=== PATIENT | female | born 1945 | race Caucasian/White ===

== ENCOUNTER 2025-06-02 10:59 | Emergency (ER) | payer MEDICARE, SELFPAY ==
--- OUTSIDE RECORDS SUMMARY | 2024-10-19 04:30 | XMS_ITS ---
Author Organization [facility] Address [address] [place] [address] Care Team Providers Care Electrical Test Technician Name Role Phone Mahin Malloy Primary Care Provider Clive Maguire Unavailable [phone] REASON FOR VISIT Lumbar Facet RFA Social History Sex Assigned At : Social History Observation Description Sex Assigned At Female Encounters Encounter Location Date Provider Diagnosis [facility] [address], [address] [address] 10/19/2024 Clive Pollard Plan Of Treatment No Information Progress Notes * VIKTORIA MCPHERSONOB:[birth year] (80 yo F)Acc No.[id number]:10/19/2024 Patient: TA WORTHINGTON Provider: David Pollard MD :1945 A ge:79 Y S ex:Female Date:10/19/2024 Address:[address], [address], [id number] Pcp:Mahin Malloy Subjective: * Chief Complaints: * 1 . Lumbar Facet RFA. * Medical History: * Implants: Objective: * Vitals: Assessment: Plan: * Treatment: * * Electronic signature of Debra Pollard MD on 06/02/2025 at 01:44 PM EST Sign off status: Pending * Provider: David Pollard MD Date: 0 10/19/2024 Generated for Printi ng/Faxing/eTransmitting on: 1 08/03/2024 01:44 PM EST
--- OUTSIDE RECORDS SUMMARY | 2024-11-08 03:30 | XMS_ITS ---
Author Organization [facility] include [facility] beds at the [facility] s Address [address] [place] [address] Care Team Providers Care Technical Trainer Name Role Phone Mahin Malloy M.D. Primary Care Provider Holger Gaona Unavailable [phone] Allergies Allergen (clinical drug ingredient) Drug/Non Drug Allergy documented on EMR Reaction Allergy Type Onset Date Status Sterapred stomach upset Drug Allergy Act mishel doxycycline doxycycline stomach upset Drug Allergy Active prednisone prednisone stomach upset Drug Allergy A ctive REASON FOR VISIT F/U, Non-alcoholic fatty liver disease Medications Medication SIG (Take, Route, Frequency, Duration) Notes Start Date End Date Status Calcium 600+D 600 mg-5 mcg tablet 1 tab(s) orally 3 times a day; Duration: 30 day(s) Active erythromycin ophthalmic 0.5% ointment 1 tj in each affected eye 3 times a day; Duration: 10 days Active magnesium oxide 400 mg capsule 1 cap(s) orally once a day Active [place] 3 vitamins 1000 mg Active rosuvastatin 10 mg tablet 1 tab(s) orally once a day; Duration: 30 day(s) Active ezetimibe 10 mg tablet 1 tab(s) orally o nce a day Active Aspirin Low Dose 81 mg tablet, chewable 1 tab(s) chewed once a day Active clotrimazole topical 1% cream 1 tj applied topically As needed Active losartan 100 mg tablet 1 tab(s) orally o nce a day Active ketoconazole topical 2% cream 1 tj applied topically As needed Active hyoscyamine 0.125 mg tablet 1 tab sublingually PRN Active gabapentin 300 mg capsule 1 cap(s) orally once a day at night takes 2 at night Active spironolactone 25 mg tablet 1 tab(s) orally 2 times a day Active hydrocodone-acetaminoph en 5-325 mg 1-2 tablets 4-6 hours Active ketoconazole topical 2% shampoo 1 tj applied topically As needed Active chlorthalidone 25mg 1 tab qd; Duration: 30 days 1MG Active febuxostat 40 mg tablet 1 tab(s) orally 3 times a week Active Restasis bid Active Albuterol (Eqv-ProAir HFA) 90 mcg/inh aerosol 2 puff(s) inhaled PRN Active Breo Ellipta 200 mcg-25 mcg/inh powder 1 puff(s) inhaled once a day; Duration: 30 day(s) Active Social History Tobacco Use: Social History Observation Description Date Details (start date - stop date) Never Smoker NA - NA Social History Social History Social Info Question Answer Notes smoking Tobacco use: never smoker Patient uses other tobacco products: No e-Cigarettes No Additional Details Category Social Info Options Details Social History alcohol yes social, one d rink Drugs (Illicit) no Tattoos no blood transfusions no The patient h as never received a blood transfusion Occupation Retired from [employer] tobacco no IV Drug use no Marital Status Problems Problem Type SNOMED Code ICD Code Onset Dates Problem Status W/U Status Risk Notes Problem Cirrhotic (875732647) Cirrhosis (K74.60) Active confirmed Presumed based on prior imaging, compensated, Due to MASLD, Continue with HCC screening Vital Signs Blood pressure systolic 120 mm Hg 11/09/19 25 Blood pressure diastolic 72 mm Hg 025 Heart Rate 68 /min 11/08/2024 Height 5'3 in 11/08/2024 Weight 177 lbs 11/08/2024 BMI 31.35 kg/m2 11/08/2024 Encounters Encounter Location Date Provider Diagnosis [facility] [address] [place] [address] 11/08/2024 Holger Brown Nonalcoholic fatty liver disease K76.0 ; Personal history of adenomatous and serrated colon polyps Z86.0101 and Cirrhosis K74.60 Assessments Encounter Date Diagnosis (ICD Code) Assessment Notes Treatment Notes Treatment Clinical Notes Section Notes 11/08/2024 Nonalcoholic fatty liver disease (ICD-10 - K76.0) Chronic AST/ALT elevations with negative serologies other than positive AB which is nonspecific in the setting of negative ASMA/IgG. Has had US showing cirrhosis despite discordant fibrosis level on elastography Her labs and platelets do not suggest portal hypertension. We have discussed liver biopsy to more accurately determine the presence /absence of cirrhosis, but I think it is reasonable to simply monitor with q6 month US/AFPand she is in agreement with this plan.Contnue with effors for weight loss Please provide handout on fatty liver 11/08/2024 Personal history of adenomatous and serrated colon polyps (ICD-10 - Z86.0101) History of hyperplastic polyps including large proximal hyperplastic polyps. Last colonoscopy with adenomatous polyps removed. Next colonoscopy due in 2026 depending on overall health. 11/08/2024 Cirrhosis (ICD-10 - K74.60) We discused NAFLD/ARAUZ and now MASLD/MASH, likely some genetic contribution to this. I recommended her daughter let her doctor(s) know Plan Of Treatment Treatment Notes Assessment Notes Nonalcoholic fatty liver disease Please provide handout on fatty liver Pending Test Test Name Order Date RUQ US 11/08/2024 Next Appt Details Follow Up: 6 Months, Reason: Provider Name:Holger diop, 11/21/2025 11:30:00 AM, [address], [address], [place], [address], History and Physical Notes * Examination Category Sub-Category Detail Notes Category Not es General examination HEENT: Head normocephalic, s clera anicteric General appearance: Well-developed, well -nourished, in no acute distress Neurologic: Awake and alert, no abnormal movements Skin: Skin is normal; no j aundice Progress Notes * Susie FRANCIS MDOB:1945 (80 yo F)Acc No.[id number]:11/08/2024 Progress Note Patient: Mayela philipabelSusie Provider: Toy Brown MD :1945 A ge:79 Y S ex:Female Date:11/08/2024 Address:[address] [place] [address] [address] , [address] [place], [place] [id number] Pcp:Mahin Malloy M.D. Structured Data:Referred By : Physician Subjective: * Chief Complaints: * F /UNon-alcoholic fatty liver disease * HPI: G astroenterology: The patient is a 79-year-old female with history of TIA on chronic aspirin/Plavix who is here for follow-up of fatty liver and colon polyps --Background-- -Seen initially May 2017 for surveillance colonoscopy. -Prior colonoscopies in 2002 and 2006 with hyperplastic polyps removed including two 1 cm proximal hyperplastic polyps in 2002. -Prior colonoscopy 2011: hyperplastic polyps. -Colonoscopy Jul 2017: Small internal hemorrhoids, few sigmoid diverticula, four small polyps removed (TA x 2, HP x 2). -Seen for elevated liver enzymes early in 2018, resolved after stopping Lipitor. S he had colonoscopy with hemorrhoids and diverticulosis and three small polyps removed (TA x 2, SSP x 1) with recommendation for repeat in 3 years. --11/19/2023-- Ms Francis is here for follow-up. She had RUQ US showing F2-3 fibrosis but a nodular liver surface suggestive of cirrhosis. She had colonoscopy with hemorrhoids and diverticulosis and three small polyps removed (TA x 2, SSP x 1) with recommendation for repeat in 3 years. She feels well with no major GI complaints. She has been able to lose 45-50 lbs with diet changes and exercise. Going to PT for her hips and back and having treatment for spinal stenosis.Lab work September2023 shows normal CBC/CMP with normal platelets --05/10/2024-- Here for follow-up. AFP was normal November2023 with no mass on US November2023 She is doing well with no significant GI complaints. Continues to work with lymphedema and joint pains to try to increase her mobility. --11/08/2024-- Ms Francis is here for follow-up. Labwork was normal including plt 285k and normal AFP. RUQ US showed cirrhosis with no mass. She reports more difficulty with speech earlier this year, prompted neurology evaluation and MRI suggesting a prior stroke. She is making improvements in her speech some. Walking without a cane today. She had cardiac catheterization showing 40% stenosis by her report, did not need a stent. [facility] with [facility] at [facility]. Had questions about her fatty liver, cirrhosis, genetic component of fetty liver as her daughter has had recent liver issues. * Medical History: Transient ischemic attack (2017) Hypertension Hyperlipidemia Colon polyp Hearing loss Gastroesophageal reflux disease Hypercholesterolemia Lymphedema Neuropathy Back pain Asthma Medical History Verified * Surgical History: Cholecystectomy (Lap) Hemorrhoidectomy Arthroscopic knee surgery - right 2008 Breast biopsy - bilateral Colonoscopy in 2006 - adenomas breast cyst drainage 2017 Cyst Removal Heart Catheterization 09/2024 Surgical History verified. * Hospitalization/Major Diagno stic Procedure: Denies Past Hospitalization. Hospitalization Verified. * Family History: F ather: unknown, family history unknown . M other: unknown, family history unknown . B rother(s): family history unknown . S ister(s): family history unknown . F amily History Verified.. Unknown, patient is adopted. * Social History: M arital Status: . O ccupation: Retired from [employer]. S moking Tobacco use: n ever smoker Patient uses other tobacco products: N o e-Cigarettes N o A lcohol: yes, social, one drink. T obacco: no. I V Drug use: no. D rugs (Illicit): no. T attoos: no. B lood transfusions: no, The patient has never received a blood transfusion. S ocial History Verified. * Medications: T akingketoconazole topical 2% shampoo 1 tj applied topically As neededketoconazole topical 2% cream 1 tj applied topically As neededlosartan 100 mg tablet 1 tab(s) orally once a day clotrimazole topical 1% cream 1 tj applied topically As neededAspirin Low Dose 81 mg tablet, chewable 1 tab(s) chewed once a day ezetimibe 10 mg tablet 1 tab(s) orally once a day rosuvastatin 10 mg tablet 1 tab(s) orally once a day [place] 3 vitamins 1000 mg magnesium oxide 400 mg capsule 1 cap(s) orally once a day erythromycin ophthalmic 0.5% ointment 1 tj in each affected eye 3 times a day Calcium 600+D 600 mg-5 mcg tablet 1 tab(s) orally 3 times a day Breo Ellipta 200 mcg-25 mcg/inh powder 1 puff(s) inhaled once a day Albuterol (Eqv-ProAir HFA) 90 mcg/inh aerosol 2 puff(s) inhaled PRN Restasis bid febuxostat 40 mg tablet 1 tab(s) orally 3 times a week chlorthalidone 25mg 1 tab qd hydrocodone-acetaminophen 5- 325 mg 1-2 tablets 4-6 hours spironolactone 25 mg tablet 1 tab(s) orally 2 times a day gabapentin 300 mg capsule 1 cap(s) orally once a day at night hyoscyamine 0.125 mg tablet 1 tab sublingually PRN Medication List reviewed and reconciled with the patientTaking ketoconazole topical 2% shampoo 1 tj applied topically As neededTaking ketoconazole topical 2% cream 1 tj applied topically As neededTaking losartan 100 mg tablet 1 tab(s) orally once a day Taking clotrimazole topical 1% cream 1 tj applied topically As neededTaking Aspirin Low Dose 81 mg tablet, chewable 1 tab(s) chewed once a day Taking ezetimibe 10 mg tablet 1 tab(s) orally once a day Taking rosuvastatin 10 mg tablet 1 tab(s) orally once a day Taking [place] 3 vitamins 1000 mg Taking magnesium oxide 400 mg capsule 1 cap(s) orally once a day Taking erythromycin ophthalmic 0.5% ointment 1 tj in each affected eye 3 times a day Taking Calcium 600+D 600 mg-5 mcg tablet 1 tab(s) orally 3 times a day Taking Breo Ellipta 200 mcg-25 mcg/inh powder 1 puff(s) inhaled once a day Taking Albuterol (Eqv-ProAir HFA) 90 mcg/inh aerosol 2 puff(s) inhaled PRN Taking Restasis bid Taking febuxostat 40 mg tablet 1 tab(s) orally 3 times a week Taking chlorthalidone 25mg 1 tab qd Taking hydrocodone-acetaminophen 5-325 mg 1-2 tablets 4-6 hours Taking spironolactone 25 mg tablet 1 tab(s) orally 2 times a day Taking gabapentin 300 mg capsule 1 cap(s) orally once a day at night Taking hyoscyamine 0.125 mg tablet 1 tab sublingually PRN Medication List reviewed and reconciled with the patient * Allergies: d oxycycline: stomach upset - Side EffectsSterapred: stomach upset - Side Effectsprednisone: stomach upset - Side EffectsyesAllergies Verified. Objective: * Vitals: B CT:31.35Index, HR: 68 /min, BP:120/72mm Hg, Wt: 177 lbs, Ht: 5'3. * Examination: G eneral examination: General appearance: W ell-developed, well-nourished, in no acute distress. HEENT: Head normocephalic, sclera anicteric. Neurologic: A wake and alert, no abnormal movements. Skin: S kin is normal; no jaundice. Assessment: * Assessment: 1. N onalcoholic fatty liver disease - K76.0 (Primary) N otes :Chronic AST/ALT elevations with negative serologies other than positive AB which is nonspecific in the setting of negative ASMA/IgG. Has had US showing cirrhosis despite discordant fibrosis level on elastography Her labs and platelets do not suggest portal hypertension. W e have discussed liver biopsy to more accurately determine the presence /absence of cirrhosis, but I think it is reasonable to simply monitor with q6 month US/AFPand she is in agreement with this plan.Contnue with effors for w eight loss 2. P ersonal history of adenomatous and serrated colon polyps - Z86.0101 N otes :History of hyperplastic polyps including large proximal hyperplastic polyps. Last colonoscopy with adenomatous polyps removed. Next colonoscopy due in 2026 depending on overall health. 3 . C irrhosis - K74.60 N otes :We discused NAFLD/ARAUZ and now MASLD/MASH, likely some genetic contribution to this. I recommended her daughter let her doctor(s) know Plan: * Treatment: 2. C irrhosis L AB: -AFP, Serum, Tumor Marker (Ordered for 11/08/2024) (Collection Date & Time - 11/08/2024 10:35 AM) Value Reference Range A FP, Serum, Tumor Marker 3.0 0.0-9.2 - ng/mL ?LAB: -Comp. Metabolic Panel (14) (Ordered for 11/08/2024) (Collection Date & Time - 11/08/2024 10:35 AM)* Value Reference Range B UN 25 8-27 - mg/dL * C reatinine, Serum 0.94 0.57-1.00 - mg/dL * B UN/Creatinine Ratio 27 12-28 - * S odium, Serum 142 134-144 - mmol/L * P otassium, Serum 4.6 3.5-5.2 - mmol/L * C hloride, Serum 103 96-106 - mmol/L * C arbon Dioxide, Total 23 20-29 - mmol/L * C alcium, Serum 9.4 8.7-10.3 - mg/dL * P rotein, Total, Serum 6.2 6.0-8.5 - g/dL * A lbumin, Serum 4.2 3.8-4.8 - g/dL * G lobulin, Total 2.0 1.5-4.5 - g/dL * B ilirubin, Total 0.5 0.0-1.2 - mg/dL * A lkaline Phosphatase, Serum 93 44-121 - IU/L * A ST (SGOT) 20 0-40 - IU/L * A LT (SGPT) 20 0-32 - IU/L * G lucose, Serum 79 70-99 - mg/dL * e GFR 62 >59 - mL/min/1.73 ?Imaging: [facility]* [facility] * Preventive Medicine: Counseling: D iet/Adult weight Above Normal BMI Follow-up L eber education regarding diet BMI management provided: Gaston Hernandez P Management: REFERRAL TO ALTERNATIVE / PRIMARY CARE PROVIDER: Rhett centeno to general physician Quang dvance Care Planning Date of last Advance Care Planning:?11/08/2024 * Follow Up: 6 Months Billing Information: * Procedure Codes: * Electronic signature of Chencho Brown MD on 06/02/2025 at 01:43 PM EST Sign off status: Pending * Provider: Toy Brown MD Date: 0 11/08/2024 Generated for Patrick eastman/Crispin/eTarlensmitting on: 1 08/03/2024 01:43 PM EST
--- OUTSIDE RECORDS SUMMARY | 2025-05-17 04:15 | XMS_ITS ---
Author Organization [facility] Address [address] [place] [address] Care Team Providers Care Cable Installation Manager Name Role Phone Mahin Malloy M.D. Primary Care Provider Holger Gaona Unavailable [phone] Allergies Allergen (clinical drug ingredient) Drug/Non Drug Allergy documented on EMR Reaction Allergy Type Onset Date Status Sterapred stomach upset Drug Allergy Act mishel doxycycline doxycycline stomach upset Drug Allergy Active prednisone prednisone stomach upset Drug Allergy A ctive REASON FOR VISIT F/U, Fatty liver, Colon polyp Medications Medication SIG (Take, Route, Frequency, Duration) Notes Start Date End Date Status erythromycin ophthalmic 0.5% ointment 1 tj in each affected eye 3 times a day; Duration: 10 days Active Breo Ellipta 200 mcg-25 mcg/inh powder 1 puff(s) inhaled once a day; Duration: 30 day(s) Active Albuterol (Eqv-ProAir HFA) 90 mcg/inh aerosol 2 puff(s) inhaled PRN Active Calcium 600+D 600 mg-5 mcg tablet 1 tab(s) orally 3 times a day; Duration: 30 day(s) Active Restasis bid Active magnesium oxide 400 mg capsule 1 cap(s) orally once a day Active rosuvastatin 10 mg tablet 1 tab(s) orally once a day; Duration: 30 day(s) Active Livingston 3 vitamins 1000 mg Active Aspirin Low Dose 81 mg tablet, chewable 1 tab(s) chewed once a day Active ezetimibe 10 mg tablet 1 tab(s) orally o nce a day Active ketoconazole topical 2% shampoo 1 tj applied topically As needed Active ketoconazole topical 2% cream 1 tj applied topically As needed Active febuxostat 40 mg tablet ; Duration: 16 Days Active losartan 100 mg tablet 1 tab(s) orally o nce a day Active clotrimazole topical 1% cream 1 tj applied topically As needed Active hyoscyamine 0.125 mg tablet 1 tab sublingually PRN Active spironolactone 25 mg tablet 1 tab(s) orally 2 times a day Active gabapentin 300 mg capsule 1 cap(s) orally once a day at night takes 2 at night Active chlorthalidone 25mg 1 tab qd; Duration: 30 days 1MG Active hydrocodone-acetaminoph en 5-325 mg 1-2 tablets 4-6 hours Active febuxostat 40 mg tablet 1 tab(s) orally 3 times a week Active Social History Tobacco Use: Social History [...] received a blood transfusion Occupation Retired from [employer] tobacco no IV Drug use no Marital Status Vital Signs Blood pressure systolic 126 mm Hg 05/17/20 25 Blood pressure diastolic 80 mm Hg 025 Heart Rate 83 /min 05/17/2025 Height 5'3 in 05/17/2025 Weight 183 lbs 05/17/2025 Oximetry 97 % 05/17/2025 BMI 32.41 kg/m2 05/17/2025 Encounters Encounter Location Date Provider Diagnosis [facility] [address] [place] [address] 05/17/2025 Holger Brown Nonalcoholic fatty liver disease K76.0 ; Personal history of adenomatous and serrated colon polyps Z86.0101 and Cirrhosis K74.60 Assessments Encounter Date Diagnosis (ICD Code) Assessment Notes Treatment Notes Treatment Clinical Notes Section Notes 05/17/2025 Nonalcoholic fatty liver disease (ICD-10 - K76.0) [...] US/AFPand she is in agreement with this plan.Continue with efforts for weight loss 05/17/2025 Personal history of adenomatous and serrated colon polyps (ICD-10 - Z86.0101) History of hyperplastic polyps including large proximal hyperplastic polyps. Last colonoscopy with adenomatous polyps removed. Next colonoscopy due in 2026 depending on overall health. 05/17/2025 Cirrhosis (ICD-10 - K74.60) Presumed based on prior imaging, compensated, Due to MASLD, Continue with HCC screening Plan Of Treatment Pending Test Test Name Order Date RUQ US 05/17/2025 Next Appt Details Follow Up: 6 Months, Reason: Provider Name:Holger diop, 11/21/2025 11:30:00 AM, [address], [address], [place], [address], History and Physical Notes * Examination Category Sub-Category Detail Notes Category Not es General examination HEENT: Head normocephalic, s clera anicteric General appearance: Well-developed, well -nourished, in no acute distress Neurologic: Awake and alert, no abnormal movements Skin: Skin is normal; no j aundice Progress Notes * Susie FRANCIS MDOB:1945 (80 yo F)Acc No.[id number]:05/17/2025 Progress Note Patient: Mayela Susie watson Provider: Toy Brown MD :1945 A ge:80 Y S ex:Female Date:05/17/2025 Address:[address] [place] [address] , [facility] [address], [place], [place] Pcp:Mahin Malloy M.D. Structured Data:Referred By : Physician Subjective: * Chief Complaints: * F /UFatty liverColon polyp * HPI: G astroenterology: The patient is a 80-year-old female with history of TIA on chronic [...] with diet changes and exercise. Going to for her hips and back and having [...] a stent. Working with weight loss at [facility]. Had questions about her fatty liver, cirrhosis, genetic component of fetty liver as her daughter has had recent liver issues. --05/17/2025-- Here for follow-up. After her last visit, RUQ US showed cirrhosis with no mass. liver enzymes and AFP were normal. She feels well. Pending an extended vacation to [place] with family. NO bowel concerns, abd pain, nausea/vomiting. Dealin with some fungus on the toenails and feet, seeing podiatry and on topical therapies. * Medical History: Transient ischemic attack (2017) Hypertension Hyperlipidemia Colon polyp Hearing loss Gastroesophageal reflux disease Hypercholesterolemia Lymphedema Neuropathy Back pain Asthma Medical History Verified * Surgical History: Cholecystectomy (Lap) Hemorrhoidectomy Arthroscopic knee surgery - right 2008 Breast biopsy - bilateral Colonoscopy in 2006 - adenomas breast cyst drainage 2017 Cyst Removal Heart Catheterization 09/2024 Surgical History verified. * Hospitalization/Major Diagno stic Procedure: urgent care , right leg injury 02/2025 Hospitalization Verified. * Family History: F ather: unknown, family history unknown . M other: unknown, family history unknown . B rother(s): family history unknown . S ister(s): family history unknown . F amily History Verified.. Unknown, patient is adopted. * Social History: M arital Status: . O ccupation: Retired from [employer]. S moking Tobacco use: n ever smoker [...] tablet 1 tab(s) orally once a day Livingston 3 vitamins 1000 mg magnesium oxide 400 [...] 0.125 mg tablet 1 tab sublingually PRN febuxostat 40 mg tablet Medication List reviewed and reconciled with the [...] 1 tab(s) orally once a day Taking Livingston 3 vitamins 1000 mg Taking magnesium oxide [...] 0.125 mg tablet 1 tab sublingually PRN Taking febuxostat 40 mg tablet Medication List reviewed and reconciled with the patient * Allergies: d oxycycline: stomach upset - Side EffectsSterapred: stomach upset - Side Effectsprednisone: stomach upset - Side EffectsyesAllergies Verified. Objective: * Vitals: B WV:32.41Index, HR: 83 /min, BP:126/80mm Hg, Wt: 183 lbs, Ht: 5'3, SaO2: 97 %. * Examination: G eneral examination: General appearance: [...] US/AFPand she is in agreement with this plan.Continue with efforts for w eight loss 2. P ersonal history of adenomatous and serrated colon polyps - Z86.0101 N otes :History of hyperplastic polyps including large proximal hyperplastic polyps. Last colonoscopy with adenomatous polyps removed. Next colonoscopy due in 2026 depending on overall health. 3 . C irrhosis - K74.60 N otes :Presumed based on prior imaging, compensated, Due to MASLD, Continue with HCC screening Plan: * Treatment: Value Reference Range A FP, Serum, Tumor Marker 2.5 0.0-9.2 - ng/mL ?LAB: -Hepatic Function Panel (7) (Ordered for 05/17/2025) (Collection Date & Time - 05/17/2025 10:27 AM)* Value Reference Range A lbumin, Serum 4.1 3.8-4.8 - g/dL * B ilirubin, Total 0.6 0.0-1.2 - mg/dL * B ilirubin, Direct 0.22 0.00-0.40 - mg/dL * A lkaline Phosphatase, Serum 73 49-135 - IU/L * A ST (SGOT) 26 0-40 - IU/L * A LT (SGPT) 33 H 0-32 - IU/L * P rotein, Total, Serum 6.1 6.0-8.5 - g/dL ?Imaging: RUQ US* Eval for HCC screeningTez Dan 05/17/2025 03:16:51 PM EST >order and notes faxed to [facility] Tez Dan 05/17/2025 03:17:59 PM > please call pt to schedule [phone] TY * Preventive Medicine: Counseling: D iet/Adult weight Above Normal BMI Follow-up L ashleyyle education regarding diet BMI management provided: Gaston Del Rio dvance Care Planning Date of last Advance Care Planning:?05/17/2025 * Follow Up: 6 Months Billing Information: * Procedure Codes: * Electronic signature of Chencho Brown MD on 06/02/2025 at 01:43 PM EST Sign off status: Pending * Provider: Toy Brown MD Date: 1 07/18/2024 Generated for Patrick eastman/Crispin/Maryann on: 08/03/2024 01:43 PM EST
--- NOTE | ~2025-06-02 | XR_ITS ---
XR hip RT 2V w AP pelvis 06/02/2025 13:27 INDICATION: Right hip pain PROCEDURE: AP pelvis and 2 views right hip COMPARISON: No prior studies for comparison. FINDINGS: Fracture, dislocation or subluxation is not identified. The soft tissues appear within normal limits. No foreign bodies are identified. There is lower lumbar spondylosis. Mild osteoarthritis of the hips. IMPRESSION: 1: NO ACUTE BONE OR JOINT ABNORMALITY IDENTIFIED. Reviewed, dictated and finalized at location O. EDURE ANALYST
--- NOTE | ~2025-06-02 | XR_ITS ---
XR tibia fibula RT 2V 06/02/2025 13:27 INDICATION: Right leg pain PROCEDURE: 2 views right tibia/fibula COMPARISON: No prior studies for comparison. FINDINGS: Fracture, dislocation or subluxation is not identified. The soft tissues appear within normal limits. No foreign bodies are identified. IMPRESSION: 1: NO ACUTE BONE OR JOINT ABNORMALITY IDENTIFIED. Reviewed, dictated and finalized at location O. CE MACHINE SERVICER APPRENTICE
--- NOTE | ~2025-06-02 | XR_ITS ---
XR foot RT min 3V 06/02/2025 13:27 Indication: Right foot pain and swelling Procedure: 4 views right foot Comparison: No prior studies for comparison. Findings: Moderate diffuse soft tissue swelling. Osteopenia. Moderate osteoarthritis of the first MTP joint. Small degenerative calcaneal enthesophyte. No foreign bodies. No fracture or traumatic malalignment. Impression: 1: Moderate diffuse soft tissue swelling. Reviewed, dictated and finalized at location O. R [employer]UBE [employer]TER Impression: 1: Moderate diffuse soft tissue swelling.
[2025-06-02 11:23] VITALS: BP 117/54; PULSE 70; RESP 16; TEMP 36.1; O2SAT 98
--- NOTE | 2025-06-02 12:29 | ED.FALL ---
HPI - Fall General Chief Complaint: Fall Stated Complaint: fall, skin tear right leg Time Seen by Provider: 06/02/25 11:57 Source: patient and family Mode of arrival: wheelchair Limitations: no limitations History of Present Illness HPI Narrative: This is an 80-year-old female who presents to the ED for a fall. Patient states that she was walking to her daughter's house who and missed a step walking into the house causing her to fall onto her right side. Denies hitting her head, loss consciousness. States she injured her right lower leg, right foot, and right hip. She is not on any blood thinners. Related Data Allergies Allergy/AdvReac Type Severity Reaction Status Date / Time prednisone Allergy Rash Verified 06/02/25 12:34 Review of Systems Review of Systems: All systems reviewed & are unremarkable except as noted in HPI and below Exam Narrative: APPEARANCE: No acute distress, nontoxic, resting in bed HEENT: Normocephalic, atraumatic, OMM RESPIRATORY: No respiratory distress CARDIOVASCULAR: Appears well perfused ABDOMINAL: Nondistended MUSCULOSKELETAl: Tenderness and ecchymosis over the to distal dorsal aspect of the right foot, no crepitus. No obvious deformities. No tenderness over the posterior right calf, negative Miranda test. Tenderness over the right greater trochanter. NEURO: Awake and alert. SKIN:: Warm, dry. Large skin tear over the lateral aspect of the right lower leg, some oozing scattered. PSYCHIATRIC: Normal affect/mood, Course Vital Signs Vital signs: Vital Signs Temperature 97.0 F L 06/02/25 11:23 Pulse Rate 70 06/02/25 11:23 Respiratory Rate 16 06/02/25 11:23 Blood Pressure 117/54 L 06/02/25 11:23 Pulse Oximetry 98 06/02/25 11:23 Oxygen Delivery Room Air 06/02/25 11:23 Temperature 97.0 F L 06/02/25 11:23 Pulse Rate 70 06/02/25 11:23 Respiratory Rate 16 06/02/25 11:23 Blood Pressure 117/54 L 06/02/25 11:23 Pulse Oximetry 98 06/02/25 11:23 Oxygen Delivery Room Air 06/02/25 13:00 [facility] Narrative Medical decision making narrative: 80-year-old female Presenting for fall. On initial evaluation patient was in no acute distress afebrile, hemodynamic stable. Differentials include but are not limited to: Fracture, sprain, strain, contusion, abrasion, skin tear Notable exam findings: Large skin tear over the right lateral lower leg, some overlying using, laceration. Tenderness over the dorsal right foot, posterior right lower leg, and the right greater trochanter. X-ray right foot, x-ray right tibia/fibula, x-ray right hip showed no acute process. Patient did have tenderness over her calf but had a negative Miranda test no suspicion for Achilles tendon tear at this time. No fractures. Skin tears were dressed. Patient was updated with Tdap. Patient and family were educated on proper wound care and pain control. They are advised to follow-up with the patient's PCP in the next week for re-evaluation. Patient and family are agreeable to the plan. Given strict return precautions. Differential Diagnosis Differential Diagnosis: Fracture, sprain, strain, contusion, abrasion, skin tear Imaging Data Radiologist's impression: ITS Impressions Foot X-Ray 06/02/25 13:46 Impression: 1: Moderate diffuse soft tissue swelling. Hip/Pelvis X-Ray 06/02/25 13:48 IMPRESSION: 1: NO ACUTE BONE OR JOINT ABNORMALITY IDENTIFIED. Tibia/Fibula X-Ray 06/02/25 13:49 IMPRESSION: 1: NO ACUTE BONE OR JOINT ABNORMALITY IDENTIFIED. Discharge Plan Discharge Clinical Impression: Skin tear Fall Qualifiers: Encounter type: initial encounter Qualified Code(s): W19.XXXA - Unspecified fall, initial encounter Contusion Qualifiers: Encounter type: initial encounter Contusion area: lower leg Laterality: right Qualified Code(s): S80.11XA - Contusion of right lower leg, initial encounter Patient Disposition: Home Condition: Stable Instructions: Antibiotic Form, Contusion in Adults (ED), Skin Tear (ED) Additional Instructions: Keep the skin tear clean with soapy water, change dressing daily. Take Tylenol and ibuprofen for pain. Follow-up with her PCP in the next week for re-evaluation. Return to the ED for any new or worsening symptoms. Patient Language: Cameroonian Follow-up/Referrals: PHYSICIAN,SAFETY PATROL OFFICER [Primary Care Provider, Internal Medicine]
[2025-06-02] MEDS: ACETAMINOPHEN 500 MG TABLET 1000 MG PO (12:35)
[2025-06-02] MEDS: TETANUS,DIPHTHERIA,AC PERTUSSIS ADULT (0.5 ML) BOOSTRIX IM (12:35)
--- OUTSIDE RECORDS SUMMARY | 2025-06-02 12:43 | XMS_ITS | Encounter Summary ---
Author Organization [facility] Address [address], [address] [place] [address] Care Team Providers Care Granulator Machine Operator Name Role Phone Mahin Malloy MD Primary Care Provider + [phone] Reason for Referral * Imaging (Routine) - Closed Specialty Diagnoses / Procedures Referred By Contac t Referred To Contact Radiology Diagnoses Post-menopausal Procedures DEXA BONE DENSITY AXIAL SKELETON Betyte Garner APRN - NP [id number] [address] Phone: tel: fax: Referral ID Status Reason Start Date Expiration Date Visits Re quested Visits Authorized [id number] Closed 03/13/2023 03/12/2024 1 1 Encounter Details Date Type Department Care Team (Latest Contact Info) Description 03/13/2023 Transcribe Orders [facility] SCHEDULING [address] [place] [address] Bettye Garner APRN - NP [id number] [address] Post-menopausal (Primary Dx) Social History Tobacco Use Types Packs/Day Years Used Date Smoking Tobacco: Never Smokeless Tobacco: Never Alcohol Use Standard Drinks/Week Comments Yes 0 (1 standard drink = 0.6 oz pur e alcohol) Comments Unknown Sex and Gender Information Value Date Recorded Sex Assigned at Not on file Legal Sex Female 9:01 AM EST Gender Identity Not on file Sexual Orientation Not on file documented as of this encounter Plan of Treatment Upcoming Encounters Date Type Department Care Team (Late st Contact Info) Description 08/19/2025 8:30 [place] [address] [facility]; AAR--- DEXA // Z78.0 // FAX documented as of this encounter Results * DEXA BONE DENSITY AXIAL SKELETON (04/03/2023 10:27 AM EDT) Anatomical Region Laterality Modality Head, C-spine, T-spine, L-spine, Chest Bone Density 04/03/2023 11:3 1 AM EDT Impressions 04/03/2023 11:33 AM EDT IMPRESSION: Osteopenia in the left forearm. The complete data acquisition used to generate the above report is available on request to the Radiology department. Lowest density of either femoral neck, total hips, or spine is typically basis of initial diagnosis. Subsequent exams typically follow bone density of mean total proximal femurs to assess for change. A 1% change from prior exam is typically statistically significant. World Health Organization criteria for bone mineral density impression classify patients as normal with T score at or above -1.0, osteopenia with T score between -1.0 and -2.5, or osteoporosis with T score at or below -2.5 referencing the lowest value obtained for the above anatomic sites. Electronically signed by: Dixie Elizalde MD 04/03/2023 11:33 AM EDT Workstation ID: [id number] Narrative 04/03/2023 11:33 AM EDT DEXA BONE DENSITY AXIAL SKELETON, DEXA BONE DENSITY PERIPHERAL Indication: Post-menopausal. Comparison: None. Technique: Dual Energy X-ray Absorptiometry (DEXA) performed on the lumbar spine and proximal femurs with a [employer] unit. Lumbar Spine: Measurements from L1 revealed a bone mineral density of 1.21 grams/cm2. The T-score, comparing to young adult normals, is 0.6 and the Z-score, comparing to age-matched normals, is 2.4. No significant change from prior. Proximal Femurs: Bone mineral density of the left femoral neck is 0.977 grams/cm2 with T score -0.4, Z-score is 1.6. Bone mineral density of the right femoral neck is 0.906 grams/cm2 with T score -0.9, Z-score is 1.1. Bone mineral density of the mean total proximal femurs is 0.986 grams/cm2. T-score of the mean total proximal femurs is -0.2 and the Z-score is 1.7. Significant 6.1% decrease in bone mineral density when compared to prior. Bone mineral density of the left forearm is 0.764 grams/cm2. T-score of the forearm is -1.3 and the Z-score is -1.3. Procedure Note Dixie Elizalde MD - 04/03/2023 DEXA BONE DENSITY AXIAL SKELETON, DEXA BONE DENSITY PERIPHERAL Indication: Post-menopausal. Comparison: None. Technique: Dual Energy X-ray Absorptiometry (DEXA) performed on the lumbarspine and proximal femurs with a [employer] unit. Lumbar Spine: Measurements from L1 revealed a bone mineral density of1.21 grams/cm2. The T-score, comparing to young adult normals, is 0.6 andthe Z-score, comparing to age-matched normals, is 2.4. No significant changefrom prior. Proximal Femurs: Bone mineral density of the left femoral neck is 0.977 grams/cm2 with T score -0.4, Z-score is 1.6. Bone mineral density of the right femoral neck is 0.906 grams/cm2 with Tscore -0.9, Z-score is 1.1. Bone mineral density of the mean total proximal femurs is 0.986 grams/cm2. T-score of the mean total proximal femurs is -0.2 and the Z-score is1.7. Significant 6.1% decrease in bone mineral density when compared toprior. Bone mineral density of the left forearm is 0.764 grams/cm2. T-score ofthe forearm is -1.3 and the Z-score is -1.3. IMPRESSION: IMPRESSION: Osteopenia in the left forearm. The complete data acquisition used to generate the above report isavailable on request to the Radiology department. Lowest density of either femoralneck, total hips, or spine is typically basis of initial diagnosis. Subsequentexams typically follow bone density of mean total proximal femurs to assessfor change. A 1% change from prior exam is typically statisticallysignificant. World Health Organization criteria for bone mineral density impressionclassify patients as normal with T score at or above -1.0, osteopenia with Tscore between -1.0 and -2.5, or osteoporosis with T score at or below -2.5referencing the lowest value obtained for the above anatomic sites. Electronically signed by: Dixie Elizalde MD 04/03/2023 11:33 AM EDT Workstation ID: [id number] us Bettye Garner APRN - HOUSE PAINTING INSTRUCTOR IMG DEXA ORDERABLES Fin al Result documented in this encounter Visit Diagnoses Diagnosis Post-menopausal- Primary Asymptomatic postmenopausal status (age-related) (natural) Post-menopausal Asymptomatic postmenopausal status (age-related) (natural) documented in this encounter Care Teams Granulator Machine Operator Relationship Specialty Start Date End Date Mahin Malloy MD [address] [place] [address] PCP - General 04/14/12 documented as of this encounter
--- OUTSIDE RECORDS SUMMARY | 2025-06-02 12:43 | XMS_ITS | Clinical Summary ---
Author Organization [facility] Address [address], [address] [place] [address] Care Team Providers Care Lead Cargo Mover Name Role Phone Mahin Malloy MD Primary Care Provider + [phone] Allergies Active Allergy Reactions Criticality Noted Date Comments Doxycycline Nausea Only 05/25/2020 Prednisone Nausea Only 11/21/2016 Medications albuterol sulfate HFA (PROVENTIL;ANGELICA KARLEE;PROAIR) 108 (90 Base) MCG/ACT inhaler Inhale 1 puff into the lungs as needed Active aspirin 81 MG chewable tablet Take 81 mg by mouth daily Active chlorthalidone (HYGROTON) 25 MG tablet Take 25 mg by mouth daily Active vitamin D (CHOLECALCIFEROL ) 01212 UNIT CAPS Take 50,000 Units by mouth every 7 days Active clopidogrel (PLAVIX) 75 MG tablet 75 mg daily 10/30/2016 Active febuxostat (ULORIC) 40 MG TABS tablet Take 40 mg by mouth Active gabapentin (NEURONTIN) 100 MG capsule Take 100 mg by mouth. Active gabapentin (NEURONTIN) 300 MG capsule Take 300 mg by mouth 3 times daily. Active HYDROcodone-acet aminophen (NORCO) 5-325 MG per tablet Take 1 tablet by mouth every 6 hours as needed. Active Hyoscyamine Sulfate SL 0.[address] 0.125 mg under the tongue every 4 hours as needed Active losartan (COZAAR) 100 MG tablet nightly. 11/06/2016 Active propranolol (INDERAL LA) 60 MG extended release capsule 60 mg 2 times daily 10/30/2016 Active simvastatin (ZOCOR) 10 MG tablet Take 10 mg by mouth Active spironolactone (ALDACTONE) 25 MG tablet 25 mg daily 10/30/2016 Active Active Problems Problem Noted Date Diagnosed Date Abscess of right breast 11/21/2016 Encounters Date Type Department Care Team Description 06/01/2025 Transcribe Orders [facility] SCHEDULING [address] [place] [address] Mahin Malloy MD Asymptomatic menopausal state (Primary Dx) 05/20/2025 10:46 AM EST - 05/20/2025 11:59 PM EST Hospital Encounter [address] [address] Holger Brown MD Hepatic cirrhosis, unspecified hepatic cirrhosis type, unspecified whether ascites present (HCC) Discharge Disposition: Home or Self Care 05/19/2025 Travel 05/19/2025 Transcribe Orders [facility] SCHEDULING [address] [place] [address] Holger Brown MD Hepatic cirrhosis, unspecified hepatic cirrhosis type, unspecified whether ascites present (HCC) (Primary Dx) 05/11/2025 11:31 AM EST - 05/11/2025 11:59 PM EST Hospital Encounter [facility] [address] [place] [address] Discharge Disposition: Home or Self Care from Last 3 Months Family History Relation Name Status Comments Father Mother Social History Tobacco Use Types Packs/Day Years Used Date Smoking Tobacco: Never Smokeless Tobacco: Never Alcohol Use Standard Drinks/Week Comments Yes 0 (1 standard drink = 0.6 oz pur e alcohol) Comments Unknown Sex and Gender Information Value Date Recorded Sex Assigned at Not on file Legal Sex Female 9:01 AM EST Gender Identity Not on file Sexual Orientation Not on file Plan of Treatment Upcoming Encounters Date Type Department Care Team (Late st Contact Info) Description 08/19/2025 8:30 AM EDT Appointment [facility] [address] [place] [address] MCR; AARP--- DEXA // Z78.0 // FAX Health Maintenance Due Date Last Done Comments Depression Screen 1957 Hepatitis A vaccine (1 of 2 - Risk 2-dose series) 01/22/1964 Hepatitis B vaccine (1 of 3 - Risk 3-dose series) 2005 Annual Wellness Visit (Medicare) 05/05/2023 Lipids 03/13/2024 03/13/2023 DTaP/Tdap/Td vaccine (2 - Td or Tdap) 07/05/2029 07/05/2019 Shingles vaccine Completed 12/24/2018, 07/2018, 09/02/2012 Pneumococcal 50+ years Vaccine Completed 07/05/2019, 05/07/2016, 06/22/2014 DEXA (modify frequency per FRAX score) Completed 04/03/2023, 04/03/2023, 12/26/2021 Respiratory Syncytial Virus (RSV) or age 60 yrs+ Completed 10/03/2023 COVID-19 Vaccine Completed 09/28/2024, , 10/03/2023, Additional history exists Flu vaccine Completed 04/15/2025, 02/08, 03/03/2023, Additional history exists Hib vaccine Aged Out No longer eligi ble based on patient's age to complete this topic Meningococcal (ACWY) vaccine Aged Out No longer eligible based on patient's age to complete this topic Meningococcal B vaccine Aged Out No l onger eligible based on patient's age to complete this topic Polio vaccine Aged Out No longer elig ible based on patient's age to complete this topic Procedures Procedure Name Priority Date/Time Associated Diagnosis Comments US GALLBLADDER RUQ Routine 05/20/2025 11 :25 AM EST Hepatic cirrhosis, unspecified hepatic cirrhosis type, unspecified whether ascites present (HCC) DEXA BONE DENSITY AXIAL SKELETON Routine 04/03/2023 10:27 AM EDT Post-menopausal LIPID PANEL Routine 03/13/2023 12:45 PM EDT from Last 3 Months or Most Recently Relevant to Health Maintenance Results * US GALLBLADDER RUQ (05/20/2025 11:25 AM EST) Anatomical Region Laterality Modality Abdomen Ultrasound 05/20/2025 1:03 PM EST Impressions 05/20/2025 1:05 PM EST IMPRESSION: 1. Hepatic steatosis with cirrhotic nodular contour. 2. Status post cholecystectomy. 3. No evidence for biliary ductal obstruction. Electronically signed by: Jean Velasquez MD 05/20/2025 1:05 PM EST Workstation ID: [id number] Narrative 05/20/2025 1:05 PM EST INDICATION: Hepatic cirrhosis COMPARISON: [facility] ultrasound 12/01/2024 TECHNIQUE: Focused transabdominal grayscale and color duplex sonography of the right upper quadrant abdomen was performed. FINDINGS: LIVER: Fatty infiltration of the liver suggested by loss of periportal echoes/increased echogenicity compared to the right kidney/loss of through transmission. No focal mass visualized. Nodular contour noted. GALLBLADDER: Surgically absent. BILE DUCTS: No abnormal intra or extrahepatic biliary ductal dilatation. Extrahepatic bile duct measures 5 mm. (Normal less than or equal to 6 mm under age 60, allow 1 mm per decade above age 60; Normal less than or equal to 10 mm status post cholecystectomy) PORTAL VEIN: Patent with appropriate flow to the liver. (Normal main portal vein less than or 17 mm diameter) PANCREAS: Visualized pancreas unremarkable, but please note that significant portions of the pancreas are suboptimally visualized, potentially obscuring pathology. RIGHT KIDNEY: Right kidney survey demonstrates no obstruction. Renal length is 9.9 cm. (Normal range 9-13 cm) Procedure Note Jean Velasquez MD - 05/20/2025 INDICATION: Hepatic cirrhosis COMPARISON: [facility] ultrasound 12/01/2024 TECHNIQUE: Focused transabdominal grayscale and color duplex sonography ofthe right upper quadrant abdomen was performed. FINDINGS: LIVER: Fatty infiltration of the liver suggested by loss of periportal echoes/increased echogenicity compared to the right kidney/loss ofthrough transmission. No focal mass visualized. Nodular contour noted. GALLBLADDER: Surgically absent. BILE DUCTS: No abnormal intra or extrahepatic biliary ductal dilatation. Extrahepatic bile duct measures 5 mm. (Normal less than or equal to 6 mmunder age 60, allow 1 mm per decade above age 60; Normal less than or equal to10 mm status post cholecystectomy) PORTAL VEIN: Patent with appropriate flow to the liver. (Normal mainportal vein less than or 17 mm diameter) PANCREAS: Visualized pancreas unremarkable, but please note thatsignificant portions of the pancreas are suboptimally visualized, potentiallyobscuring pathology. RIGHT KIDNEY: Right kidney survey demonstrates no obstruction. Renallength is 9.9 cm. (Normal range 9-13 cm) IMPRESSION: IMPRESSION: 1. Hepatic steatosis with cirrhotic nodular contour. 2. Status post cholecystectomy. 3. No evidence for biliary ductal obstruction. Electronically signed by: Jean Velasquez MD 05/20/2025 1:05 PM EST Workstation ID: [id number] us Holger Brown MD IM US ORDERABLES Final Res ult * DEXA BONE DENSITY AXIAL SKELETON (04/03/2023 [...] MD 04/03/2023 11:33 AM EDT Workstation ID: [id number] Narrative 04/03/2023 11:33 AM EDT DEXA BONE DENSITY AXIAL SKELETON, DEXA BONE DENSITY PERIPHERAL Indication: Post-menopausal. Comparison: None. Technique: Dual Energy X-ray Absorptiometry (DEXA) performed on the lumbar spine and proximal femurs with a Zenverge unit. Lumbar Spine: Measurements from L1 revealed [...] the lumbarspine and proximal femurs with a BullhornigKnodium unit. Lumbar Spine: Measurements from L1 revealed [...] MD 04/03/2023 11:33 AM EDT Workstation ID: [id number] us Bettye Garner APRN - JUSTIN IMG DEXA ORDERABLES Fin al Result * Lipid Panel (03/13/2023 12:45 PM EDT) Cholesterol 112 0 - 199 mg/dl Comment: Cholesterol Risk Levels Low-risk levels (desirable) < 200 mg/dL Moderate-risk levels (borderline) 200 2 39 mg/dL High-risk levels >= 240 mg/dL HDL 51 40 - 60 mg/dl Triglycerides 95 0 - 150 mg/dl LDL Calculated 42 0 - 130 mg/dl Comment: TARGET/DECISION VALUES DEPEND ON A NUMBER OF RISK FACTORS. LDL CALCULATION NOT VALID IF TRIGLYCERIDES ARE GREATER THAN 400 mg/dL. Chol/HDL Ratio 2.2 0.0 - 4.4 Ratio BLOOD SPECIMEN / Unknown 03/13/2023 12:45 PM EDT 03/13/2023 3:51 PM EDT us Bettye Garner APRN - PACKER OPERATOR AUTOMATIC CHEMISTRY ORDERABLES Fi nal Result [facility] [address] [place] [address] from Last 3 Months or Most Recently Relevant to Health Maintenance Insurance MEDICARE [employer] MEDICARE SUPP MEDICARE [employer] MEDICARE SUPP Care Teams Lead Cargo Mover Relationship Specialty Start Date End Date Mahin Malloy MD [address] [address] PCP - General 04/14/12
--- OUTSIDE RECORDS SUMMARY | 2025-06-02 12:43 | XMS_ITS | Encounter Summary ---
Author Organization [facility] Address [address] [place] [address] Care Team Providers Care Section 8 Property Manager Name Role Phone Mahin Malloy MD Primary Care Provider [phone] Encounter Details Date Type Department Care Team (Late st Contact Info) Description 11/05/2024 Orders Only CLINICAL [address] [place] [address] Provider, Unknown Social History Tobacco Use Types Packs/Day Years Used Date Smoking Tobacco: Never Smokeless Tobacco: Never Alcohol Use Standard Drinks/Week Comments Yes 0 (1 standard drink = 0.6 oz pur e alcohol) once in awhile Comments Unknown Sex and Gender Information Value Date Recorded Sex Assigned at Female 09/13/2022 10:35 AM EDT Legal Sex Female 5:50 PM EDT Gender Identity Female 09/13/2022 10:35 AM EDT Sexual Orientation Not on file documented as of this encounter Functional Status * Increase in assistance with bed, chair, walking etc. Answer Date of Assessment Author No 09/17/2024 8:36 AM EDT Jarred Aguiar RN * Increase in assistance with bathing, dressing, etc. Answer Date of Assessment Author No 09/17/2024 8:36 AM EDT Jarred Aguiar RN documented as of this encounter Plan of Treatment Upcoming Encounters Date Type Department Care Team (Late st Contact Info) Description 06/22/2025 9:45 AM EST Office Visit [facility] [address] [place] [address] Timbo Stiles, NELLY [address] [place] [address] 10/27/2025 9:15 AM EDT Office Visit [facility] [address] [place] [address] Gurinder Patel MD [address] [place], [place] [id number] documented as of this encounter Procedures Procedure Name Priority Date/Time Associated Diagnosis Comments REFERRAL TO NEUROLOGY 11/05/2024 11:27 AM EDT documented in this encounter Results * REFERRAL TO NEUROLOGY (11/05/2024 11:27 AM EDT) 11/05/2024 11:2 7 AM EDT Narrative 11/05/2024 11:27 AM EDT Ordered by an unspecified provider. us Unknown Provider OUTPATIENT REFERRAL Final Resul t documented in this encounter Visit Diagnoses Not on filedocumented in this encounter Care Teams Section 8 Property Manager Relationship Specialty Start Date End Date Mahin Malloy MD [facility] [address] [place] [address] PCP - General 11/18/11 documented as of this encounter
--- OUTSIDE RECORDS SUMMARY | 2025-06-02 12:43 | XMS_ITS | Encounter Summary ---
Author Organization [facility] Address [address] [place] [address] Care Team Providers Care Testing Projects Administrator Name Role Phone Mahin Malloy MD Primary Care Provider [phone] Encounter Details Date Type Department Care Team (Late st Contact Info) Description 01/24/2025 Lab Requisition [facility] [employer], [facility] [address] [place] [address] Mahin Malloy MD [facility] [address] [place] [address] [address] [place] [address] Hyperlipidemia, unspecified; Impaired fasting glucose; Chronic kidney disease, stage 3a (HCC) Social History Tobacco Use Types Packs/Day Years [...] Assessment Author No 09/17/2024 8:36 AM EDT Cosme, K arma J, RN documented as of this encounter Plan of Treatment Upcoming Encounters Date Type Department Care Team (Late st Contact Info) Description 06/22/2025 9:45 AM EST Office Visit [facility] [address] [place] [address] Timbo Stiles, NELLY [address] [place] [address] 10/27/2025 9:15 AM EDT Office Visit [facility] [address] [facility] [address] [place] [address] Gurinder Patel MD [address] [place] [address] documented as of this encounter Procedures Procedure Name Priority Date/Time Associated Diagnosis Comments CBC WITH DIFFERENTIAL Routine 01/24/2025 11:04 AM EDT Impaired fasting glucose Chronic kidney disease, stage 3a (HCC) LAB DRAW FEE - IOP Routine 01/24/2025 11 :04 AM EDT Hyperlipidemia, unspecified HGB A1C WITH EST AVG GLUCOSE Routine 01/24/2025 11:04 AM EDT Impaired fasting glucose LIPID COMPLETE PANEL Routine 01/24/2025 11:04 AM EDT Hyperlipidemia, unspecified CBC WITH DIFFERENTIAL Routine 01/24/2025 11:04 AM EDT Impaired fasting glucose Chronic kidney disease, stage 3a (HCC) RENAL FUNCTION PANEL Routine 01/24/2025 11:04 AM EDT Impaired fasting glucose Chronic kidney disease, stage 3a (HCC) documented in this encounter Results * CBC WITH DIFFERENTIAL AUTO (01/24/2025 11:04 AM EDT) WBC 6.1 4.0 - 11.0 K/uL 01/24/2025 11:13 PM EDT [facility] RBC 4.69 3.80 - 5.20 M/uL 01/24/2025 11:13 PM EDT [facility] HGB 13.0 11.7 - 16.1 g/dL 01/24/2025 11:13 PM EDT [facility] HCT 42.3 35.1 - 48.3 % 01/24/2025 11:13 PM EDT [facility] MCV 90 80 - 99 fL 01/24/2025 11:13 PM EDT [facility] MCH 28 26 - 34 pg 01/24/2025 11:13 PM EDT [facility] MCHC 31 31 - 36 g/dL 01/24/2025 11:13 PM EDT [facility] RDW 14.0 10.0 - 15.5 % 01/24/2025 11:13 PM EDT [facility] Platelet 214 140 - 440 K/uL 01/24/2025 11:13 PM EDT [facility] MPV 9.9 9.0 - 13.0 fL 01/24/2025 11:13 PM EDT [facility] Segmented Neutrophils (Auto) 63 40 - 75 % 01/24/2025 11:13 PM EDT [facility] Lymphocytes (Auto) 26 20 - 45 % 01/24/2025 11:13 PM EDT [facility] Monocytes (Auto) 9 3 - 12 % 01/25/20 11:13 PM EDT [facility] Eosinophils (Auto) 2 0 - 6 % 01/24/2025 11:13 PM EDT [facility] Basophils (Auto) 0 0 - 2 % 01/25/20 11:13 PM EDT [facility] Absolute Neutrophils (Auto) 3.9 1.8 - 7.7 K/uL 01/24/2025 11:13 PM EDT [facility] Absolute Lymphocytes (Auto) 1.6 1.0 - 4.8 K/uL 01/24/2025 11:13 PM EDT [facility] Absolute Monocytes (Auto) 0.6 0.1 - 1.0 K/uL 01/24/2025 11:13 PM EDT [facility] Absolute Eosinophils (Auto) 0.1 0.0 - 0.5 K/uL 01/24/2025 11:13 PM EDT [facility] Absolute Basophils (Auto) 0.0 0.0 - 0.2 K/uL 01/24/2025 11:13 PM EDT [facility] Blood BLOOD / Unknown 01/24/2025 1 1:04 AM EDT 01/24/2025 9:57 PM EDT us Mahin Malloy MD LAB HEMATOLOGY ORDERABLES Rachel l Result [facility] [address] [address], [place] [phone] * Lipid Complete Panel (01/24/2025 11:04 AM EDT) Cholesterol 134 110 - 200 mg/dL [facility] _EU 01/25/2025 12:29 AM EDT [facility] Triglyceride 68 40 - 149 mg/dL [facility] _EU 01/25/2025 12:29 AM EDT [facility] HDL 65 >=40 mg/dL [facility] _EUA 01/25/2025 12:29 AM EDT [facility] Cholesterol/HDL 2.1 0.0 - 5.0 [facility] _EUA 01/25/2025 12:29 AM EDT [facility] Non-HDL Cholesterol 69 <130 mg/dL [facility] _EUA 01/25/2025 12:29 AM EDT [facility] LDL CALCULATION 55 50 - 99 mg/dL [facility] _EUA 01/25/2025 12:29 AM EDT [facility] VLDL CALCULATION 14 8 - 30 mg/dL [facility] _EUA 01/25/2025 12:29 AM EDT [facility] LDL/HDL Ratio 0.9 [facility] _EUA 01/25/2025 12:29 AM EDT [facility] Blood BLOOD / Unknown 01/24/2025 1 1:04 AM EDT 01/24/2025 9:57 PM EDT Narrative [facility] - 01/25/2025 12:29 AM EDT Cholesterol Recommended NCEP guidelines in mg/dL: Less than 200 Desirable 200 - 239 Borderline High Greater than or = 240 High Please Note: Total Chol/HDL Ratio Men Women 1/2 Avg. Risk 3.4 3.3 Avg. Risk 5.0 4.4 2X Avg. Risk 9.6 7.1 3X Avg. Risk 23.4 11.0 Mahin Malloy MD LAB CHEMISTRY ORDERABLES Final Result [facility] [address] [place] [address], * (ABNORMAL) Renal Function Panel (01/24/2025 11:04 AM EDT) Pathologist [facility] Sodium 143 133 - 145 mmol/L [facility] _EUA 01/25/2025 12:29 AM EDT [facility] Potassium 4.4 3.5 - 5.5 mmol/L [facility] _EUA 01/25/2025 12:29 AM EDT [facility] Chloride 106 98 - 110 mmol/L [facility] _EUA 01/25/2025 12:29 AM EDT [facility] Glucose 93 70 - 99 mg/dL [facility] _EUA 01/25/2025 12:29 AM EDT [facility] BUN 25(H) 6 - 22 mg/dL [facility] _EUA 01/25/2025 12:29 AM EDT [facility] CO2 27 20 - 32 mmol/L [facility] _EUA 01/25/2025 12:29 AM EDT [facility] Creatinine 0.9 0.8 - 1.4 mg/dL [facility] _EUA 01/25/2025 12:29 AM EDT [facility] Calcium 9.3 8.4 - 10.5 mg/dL [facility] _EUA 01/25/2025 12:29 AM EDT [facility] Albumin 3.7 3.5 - 5.0 g/dL [facility] _EUA 01/25/2025 12:29 AM EDT [facility] Phosphorus 3.6 2.5 - 4.5 mg/dL [facility] _EUA 01/25/2025 12:29 AM EDT [facility] eGFR 60.8 >60.0 mL/min/1.7 3 sq.m. [facility] _EU 01/25/2025 12:29 AM EDT [facility] Comment: eGFR calculation based on the Chronic Kidney Disease Epidemiology Collaboration (CKD-EPI) equation refit without adjustment for race. This eGFR is validated for stable chronic renal failure patients. This equation is unreliable in acute illness or patients with normal renal function. Anion Gap 10.0 3.0 - 15.0 mmol/L [facility] _EUA 01/25/2025 12:29 AM EDT [facility] Comment:Anion Gap calculatio n based on electrolyte reference ranges. Blood BLOOD / Unknown 01/24/2025 1 1:04 AM EDT 01/24/2025 9:57 PM EDT Mahin Malloy MD LAB CHEMISTRY ORDERABLES Final Result [facility] [address] [place] [address], [place] [phone] * Hemoglobin A1c with Est Avg Glucose (01/24/2025 11:04 AM EDT) Hemoglobin A1c 5.4 4.8 - 5.6 % 01/25/2025 12:37 AM EDT [facility] Estimated Average Glucose 107 91 - 123 mg/dL 01/25/2025 12:37 AM EDT [facility] Blood BLOOD / Unknown 01/24/2025 1 1:04 AM EDT 01/24/2025 9:57 PM EDT Mahin Malloy MD LAB CHEMISTRY ORDERABLES Final Result Performing Organization Address City/[facility]/ZIP Co de Phone Number [facility] [address] [address], * Draw Fee - IOP (01/24/2025 11:04 AM EDT) Blood BLOOD / Unknown 01/24/2025 1 1:04 AM EDT 01/24/2025 9:57 PM EDT Mahin Malloy MD LAB CHEMISTRY ORDERABLES Final Result Performing Organization Address [facility] Co de Phone Number [facility] [address] [place] [address], [place] [phone] documented in this encounter Visit Diagnoses Diagnosis Hyperlipidemia, unspecified Impaired fasting glucose Chronic kidney disease, stage 3a (HCC) documented in this encounter Care Teams Testing Projects Administrator Relationship Specialty Start Date End Date Mahin Malloy MD [facility] [address] [place] [address] PCP - General 11/18/11 documented as of this encounter
--- OUTSIDE RECORDS SUMMARY | 2025-06-02 12:43 | XMS_ITS | Encounter Summary ---
Author Organization [facility] Address [address], [address] [place] [address] Care Team Providers Care Cuff Cutter Name Role Phone Mahin Malloy MD Primary Care Provider [phone] Reason for Referral * Imaging (Routine) - Open Specialty Diagnoses / Procedures Referred By Contac t Referred To Contact Radiology Diagnoses Hepatic cirrhosis, unspecified hepatic cirrhosis type, unspecified whether ascites present (HCC) Procedures US GALLBLADDER RUQ Holger Brown MD [address] [place] [address] Phone: tel: fax: Referral ID Status Reason Start Date Expiration Date Visits Re quested Visits Authorized [id number] Open 11/17/2024 11/17/2025 1 1 Encounter Details Date Type Department Care Team (Late st Contact Info) Description 11/17/2024 Transcribe Orders [facility] SCHEDULING [address] [place] [address] Holger Brown MD [address] [place] [address] Hepatic cirrhosis, unspecified hepatic cirrhosis type, unspecified whether ascites present (HCC) (Primary Dx) Social History Tobacco Use Types [...] Info) Description 08/19/2025 8:30 [place] [address] [facility]; AARP--- DEXA // Z78.0 // FAX Scheduled Orders Name Type Priority Associated Diagnoses Orde r Schedule US GALLBLADDER RUQ Imaging Routine Hepatic cirrhosis, unspecified hepatic cirrhosis type, unspecified whether ascites present (HCC) Expected: 11/17/2024, Expires: 11/17/2025 documented as of this encounter Visit Diagnoses Diagnosis Hepatic cirrhosis, unspecified hepatic cirrhosis type, unspecified whether ascites present (HCC)- Primary documented in this encounter Care Teams Cuff Cutter Relationship Specialty Start Date End Date Mahin Malloy MD [address] [facility] [address] [place] [address] PCP - General 04/14/12 documented as of this encounter
--- OUTSIDE RECORDS SUMMARY | 2025-06-02 12:43 | XMS_ITS | Patient Health Record ---
Author Organization [facility] Address [address] [place] [address] Care Team Providers Care Guitar Repair Technician Name Role Phone Teodoro Malloy M.D.berto Primary Care Provider Holger Gaona Unavailable [phone] Allergies Allergen (clinical drug ingredient) Drug/Non Drug Allergy documented on EMR Reaction Allergy Type Onset Date Status Sterapred stomach upset Drug Allergy Act mishel doxycycline doxycycline stomach upset Drug Allergy Active prednisone prednisone stomach upset Drug Allergy A ctive Results Component Value Reference Range Flag Notes -AFP, Serum, Tumor Marker Reviewed date:11/12/2024 05:10:41 PM Interpretation: Performing Lab:[facility] [address], Phone - [phone], Director - [facility] Notes/Report: AFP, Serum, Tumor Marker 3.0 0.0-9.2 ng/mL [facility] Electrochemiluminescence Immunoassay (ECLIA) . Values obtained with different assay methods or kits cannot be used interchangeably. Results cannot be interpreted as absolute evidence of the presence or absence of malignant disease. . This test is not interpretable in females. -Comp. Metabolic Panel (14) Reviewed date:11/12/2024 05:10:41 PM Interpretation: Performing Lab:[facility] [address], Phone - [phone], Director - [facility] Notes/Report: Glucose 79 70-99 mg/dL BUN 25 8-27 mg/dL Creatinine 0.94 0.57-1.00 mg/dL eGFR 62 >59 mL/min/1.73 BUN/Creatinine Ratio 27 12-28 Sodium 142 134-144 mmol/L Potassium 4.6 3.5-5.2 mmol/L Chloride 103 96-106 mmol/L Carbon Dioxide, Total 23 20-29 mmol/L Calcium 9.4 8.7-10.3 mg/dL Protein, Total 6.2 6.0-8.5 g/dL Albumin 4.2 3.8-4.8 g/dL Globulin, Total 2.0 1.5-4.5 g/dL Bilirubin, Total 0.5 0.0-1.2 mg/dL Alkaline Phosphatase 93 44-121 IU/L AST (SGOT) 20 0-40 IU/L ALT (SGPT) 20 0-32 IU/L -AFP, Serum, Tumor Marker Reviewed date:05/22/2025 11:14:44 AM Interpretation: Performing [facility], [address] [place] [address], Phone - [phone], Director - [facility] Notes/Report: AFP, Serum, Tumor Marker 2.5 0.0-9.2 ng/mL [facility] Electrochemiluminescence Immunoassay (ECLIA) . Values obtained with different assay methods or kits cannot be used interchangeably. Results cannot be interpreted as absolute evidence of the presence or absence of malignant disease. . This test is not interpretable in females. -Hepatic Function Panel (7) Reviewed date:05/22/2025 11:14:44 AM Interpretation: Performing Lab:[facility], [address] [place] [address], Phone - [phone], Director - [facility] Notes/Report: Protein, Total 6.1 6.0-8.5 g/dL Albumin 4.1 3.8-4.8 g/dL Bilirubin, Total 0.6 0.0-1.2 mg/dL Bilirubin, Direct 0.22 0.00-0.40 mg/dL Alkaline Phosphatase 73 49-135 IU/L AST (SGOT) 26 0-40 IU/L ALT (SGPT) 33 0-32 IU/L H Reason For Referral No Information Medications Medication SIG (Take, Route, Frequency, Duration) Notes Start Date End Date Status magnesium oxide 400 mg capsule 1 cap(s) orally once a day Active hyoscyamine 0.125 mg tablet 1 tab sublingually PRN Active erythromycin ophthalmic 0.5% ointment 1 tj in each affected eye 3 times a day; Duration: 10 days Active rosuvastatin 10 mg tablet 1 tab(s) orally once a day; Duration: 30 day(s) Active spironolactone 25 mg tablet 1 tab(s) orally 2 times a day Active [place] 3 vitamins 1000 mg Active gabapentin 300 mg capsule 1 cap(s) orally once a day at night takes 2 at night Active ketoconazole topical 2% shampoo 1 tj applied topically As needed Active Breo Ellipta 200 mcg-25 mcg/inh powder 1 puff(s) inhaled once a day; Duration: 30 day(s) Active ketoconazole topical 2% cream 1 tj applied topically As needed Active Albuterol (Eqv-ProAir HFA) 90 mcg/inh aerosol 2 puff(s) inhaled PRN Active febuxostat 40 mg tablet ; Duration: 16 Days Active Calcium 600+D 600 mg-5 mcg tablet 1 tab(s) orally 3 times a day; Duration: 30 day(s) Active Aspirin Low Dose 81 mg tablet, chewable 1 tab(s) chewed once a day Active chlorthalidone 25mg 1 tab qd; Duration: 30 days 1MG Active ezetimibe 10 mg tablet 1 tab(s) orally o nce a day Active hydrocodone-acetaminoph en 5-325 mg 1-2 tablets 4-6 hours Active losartan 100 mg tablet 1 tab(s) orally o nce a day Active Restasis bid Active clotrimazole topical 1% cream 1 tj applied topically As needed Active febuxostat 40 mg tablet 1 tab(s) [...] received a blood transfusion Occupation Retired from [employer] tobacco no IV Drug use no Marital Status Section Notes: , works at [employer]. He r recently started Hemodialysis ( ,,S). Problems Problem Type SNOMED Code ICD Code Onset Dates Problem Status W/U Status Risk Notes Problem Information temporarily unavailable TIA (435.9) Active confirmed She is uncertain of the date, possibly four months ago. She has been on Aggrenox b.i.d. Problem Information temporarily unavailable Colon polyp (211.3) Active confirmed Problem Information temporarily unavailable HTN [Hypertension] (401.9) Active confirmed Problem Information temporarily unavailable History of colon polyp (V12.72) Active confirmed tiny diminutive polyp in 2006 - similar lesion now. Problem Information temporarily unavailable Personal history of colonic polyps (Z86.010) Active confirmed Problem Information temporarily unavailable Personal history of colonic polyps (Z86.010) Active confirmed History of hyperplastic polyps including large proximal hyperplastic polyps. Last colonoscopy with adenomatous polyps removed. Next colonoscopy due in 2026 depending on overall health. Problem Information temporarily unavailable Cirrhosis (K74.60) Active confirmed Presumed based on prior imaging, compensated, Due to MASLD, Continue with HCC screening Problem Information temporarily unavailable Dysphagia (R13.10) Active confirmed Chronic mild intermittent solid food dysphagia. Unremarkable EGD but improvement in symptoms with empiric 51Fr dilation and will continue to monitor. Problem Information temporarily unavailable Diverticulosis (K57.90) Active confirmed Problem Information temporarily unavailable Gastric polyps (K31.7) Active confirmed Problem Information temporarily unavailable Nonalcoholic fatty liver disease (K76.0) Active confirmed Chronic AST/ALT elevations with negative serologies other [...] this plan.Continue with efforts for weight loss Problem Information temporarily unavailable Elevated ALT measurement (R74.0) Active confirmed Chronic liver enzyme elevations, somewhat acute on chronic elevation this past Fall in the setting of known fatty liver. AB was positive with otherwise unremarkable serologic evaluation. She declined liver biopsy but liver enzymes improved with stopping Lipitor. Unclear whether this was an effect of the Lipitor, an autoimmune hepatitis pattern associated with Lipitor or whether this is normal fluctuation of her liver enzymes from fatty liver and the Lipitor is incidental. -She has done well on low dose simvastatin with no rise in liver enzymes. -If her dose of simvastatin is increased, will need to check liver enzymes more closely with each dose increase; at week 2, 6, and 12 weeks. Vital Signs Heart Rate 83 /min 05/17/2025 Oximetry 97 % 05/17/2025 Blood pressure diastolic 80 mm Hg 05/17/2025 Height 5'3 in 05/17/2025 Blood pressure systolic 126 mm Hg 05/17/2025 Weight 183 lbs 05/17/2025 BMI 32.41 kg/m2 05/17/2025 Encounters Encounter Location Date Provider [facility] [address] [address] 11/08/2024 Holger Brown Nonalcoholic fatty liver disease K76.0 ; Personal history of adenomatous and serrated colon polyps Z86.0101 and Cirrhosis K74.60 [place] [facility] [address] [address] 05/17/2025 Holger Brown Nonalcoholic fatty liver disease K76.0 ; Personal history of adenomatous and serrated colon polyps Z86.0101 and Cirrhosis K74.[address] [facility] [address] [place] [phone] 12/08/2024 Holgre Brown [place] [address] [place] [phone] 05/22/2025 Holger Brown [facility] [address] [place] [phone] 05/22/2025 Holger Brown Assessments Encounter Date Diagnosis (ICD Code) Assessment [...] in 2026 depending on overall health. 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 I recommended her daughter let her doctor(s) know Plan Of Treatment Pending Test Test Name Order Date Alpha 1-antitrypsin level 02/12/2018 AMA (Anti Mitochondrial Antibody) 2017 AB (anti-nuclear antibody) 02/12/2018 ASMA (Anti Smooth Muscle antibody) 02/12 IgG 02/12/2018 RUQ US 05/17/2025 RUQ US 11/08/2024 HEPATIC FUNCTION PANEL 02/12/2018 IRON, TIBC AND FERRITIN PANEL 02/12/2018 CERULOPLASMIN 02/12/2018 HEPATITIS A ANTIBODY, TOTAL 02/12/2018 HEPATITIS B SURFACE ANTIBODY, QUAL 02/12 HEPATITIS B CORE AB, TOTAL 02/12/2018 HEPATITIS B SURFACE ANTIGEN 02/12/2018 Future Test Test Name Order Date Colonoscopy 04/17/2007 Colonoscopy 04/29/2012 Colonoscopy with MAC (Monitored Anesthes ia Care) 07/17/2017 EGD under MAC (Monitored Anesthesia Care ) 03/30/2018 -Hepatic Function Panel (7) 06/09/2019 Ultrasound abdomen, limited with elastog isaiah 04/25/2021 Colonoscopy with MAC - OFFICE 07/03/2023 Next Appt Details Provider Name:Holger Carballo jadon, 11/21/2025 11:30:00 AM, [address], [place], [address], Insurance Providers Payer Name Payer Address Payer Phone Subscriber Number Group Number Insured Name Patient Relationship to Insured Coverage Start Date Coverage End Date Medicare [place] [address] [place] [address] [id number] none GroSusie montero Self - patient is the insured [facility] Supplemental [address] [place] [address] [id number] Susie Francis Self - patient is the insured Medical (General) History Medical History History ICD Code Transient ischemic attack (2017) Hypertension Hyperlipidemia Colon polyp Hearing loss Gastroesophageal reflux disease Hypercholesterolemia Lymphedema Neuropathy Back pain Asthma Surgical History Surgery Date(Month/Year) Heart Catheterization 09/2024 Cyst Removal breast cyst drainage 2017 Colonoscopy in 2006 - adenomas Breast biopsy - bilateral Arthroscopic knee surgery - right 2008 Hemorrhoidectomy Cholecystectomy (Lap) Hospitalization History Reason Date(Month/Year) urgent care , right leg injury 02/2025
--- OUTSIDE RECORDS SUMMARY | 2025-06-02 12:43 | XMS_ITS | Clinical Summary ---
Author Organization [facility] Address [address] [place] [address] Care Team Providers Care Extruder Operator Vertical Name Role Phone Mahin Malloy MD Primary Care Provider [phone] Allergies Active Allergy Reactions Criticality Noted Date Comments Prednisone gi distress 03/27/2023 Medications albuterol sulfate 90 mcg/actuation INH aebs Albuterol HFA Inhaler 90 mcg/actuation inhalation 2.0 qd active Active Febuxostat (ULORIC) 40 mg PO TABS Take 1 Tab by Mouth. Fri, Fri, and Friday Active fluticasone furoate-vilanteroL (BREO) 200-25 mcg/dose INH DsDv Fluticasone-Vi lanterol Inhaler 200 mcg-25 mcg/dose active Active gabapentin (NEURONTIN) 300 mg PO CAPS Take 2 Caps by Mouth. 1 tab in am , 1 tab at noon, and 2 tab at pm Active spironolactone (ALDACTONE) 25 mg PO TABS Take 1 Tab by Mouth. Active magnesium oxide (MAG-OX) 400 mg (241.3 mg magnesium) PO TABS Once a Day. Active Hyoscyamine Sulfate 0.[address] 1 tablet 4 times a day by sublingual route as needed. Active rosuvastatin (CRESTOR) 10 mg PO TABS take 1 tablet by mouth ON FRIDAY, FRIDAY, AND FRIDAY Active clotrimazole (LOTRIMIN) 1 % Top CREA Use 1 Application to affected area Twice Daily. 024 Active losartan (COZAAR) 100 mg PO TABS tablet Take 1 Tab by Mouth Every Night at Bedtime. 90 Tab 3 025 Active aspirin EC 81 mg PO TBEC Take 1 Tab by Mouth Once a Day. 025 Active calcium carbonate-vitamin D3 1,000 mg-20 mcg (800 unit) PO TABS Take by Mouth Once a Day. Active ketoconazole (NIZORAL) 2 % Top CREAIndications:Tinea pedis of right foot Use 1 Application to affected area Once a Day. 30 g 025 Active ezetimibe (ZETIA) 10 mg PO TABSIndications:Pure hypercholesterolemia Take 1 Tab by Mouth Every Night at Bedtime. 90 Tab 3 025 Active ezetimibe (ZETIA) 10 mg PO TABS Take 1 Tab by Mouth Every Night at Bedtime. 2024 Disconti nued(Reo rder) Active Problems Problem Noted Date Diagnosed Date Morbid obesity 10/22/2024 Coronary artery disease 09/07/2024 Abnormal EKG 09/07/2024 Encounters Date Type Department Care Team Description 05/17/2025 Lab Requisition [facility], [address] [place] [phone] Mahin Malloy MD Tinea unguium 05/11/2025 Refill [facility] [address] [phone] Gurinder Patel MD Pure hypercholesterolemia (Primary Dx) from Last 3 Months Social History Tobacco Use Types Packs/Day Years Used Date Smoking Tobacco: Never Smokeless Tobacco: Never Tobacco Cessation:Counseling Given: No Alcohol Use Standard Drinks/Week Comments Yes 0 (1 standard drink = 0.6 oz pur e alcohol) once in awhile Comments Unknown Sex and Gender Information Value Date Recorded Sex Assigned at Female 09/13/2022 10:35 AM EDT Legal Sex Female 5:50 PM EDT Gender Identity Female 09/13/2022 10:35 AM EDT Sexual Orientation Not on file Last Filed Vital Signs Vital Sign Reading Time Taken Comments Blood Pressure 110/52 10/22/2024 1:53 PM EDT Pulse 83 10/22/2024 1:53 PM EDT Temperature 36.5 C (97.7 F) 09/17/2024 8:26 AM EDT Respiratory Rate 20 09/17/2024 4:30 PM EDT Oxygen Saturation 95% 09/17/2024 4:30 PM EDT Inhaled Oxygen Concentration - - Weight 80.3 kg (177 lb) 01/19/2025 1:28 PM EDT Height 154.9 cm (5' 1) 01/19/2025 1:28 PM EDT Body Mass Index 33.44 01/19/2025 1:28 PM EDT Plan of Treatment Upcoming Encounters Date Type Department Care Team (Late st Contact Info) Description 06/22/2025 9:45 AM EST Office Visit [facility] [address] [facility] [address] [place] [address] Timbo Stiles DPM [address] [facility] [address] [place] [address] 10/27/2025 9:15 AM EDT Office Visit [facility] [address] [facility] [address] [place] [address] Gurinder Patel MD [address] [facility] [address] [facility] [address] [place] [address] Health Maintenance Due Date Last Done Comments ANNUAL MED WELLNESS VISIT (FFS) 1945 TD VACCINE 01/22/1956 TDAP VACCINE 01/22/1956 PNEUMOCOCCAL VACCINE: 50+ (2 of 2 - PPSV23, PCV20, or PCV21) 07/02/2016 05/07/2016, 06/22/2014 RESPIRATORY SYNCTIAL VIRUS ( RSV) SCDM 60+ OR (1 - 1-dose 75+ series) 01/22/2020 DEPRESSION SCREENING 06/09/2024 FLU VACCINE 01/07/2025 03/03/2023, 05/09, 02/26/2021, Additional history exists COVID-19 VACCINE (1 - 2024-2 6 season) 2025 DIABETES SCREENING 01/25/2028 01/24/2025, 0 09/11/2024, 09/18/2023, Additional history exists PHYSICAL/EXAM Discontinued 09/01/2009, 03/0 02/2009, 08/07/2006, Additional history exists SHINGLES VACCINE (Shingrix) Completed 12/24/2018, 0 09/08/2018 MAMMOGRAM/BREAST CANCER SCREENING Discontinued 02/22/2022, 02/22/2022, 01/31/2021, Additional history exists OSTEOPOROSIS SCREENING Completed , 04/03/2023, 04/03/2023, Additional history exists COLONOSCOPY Discontinued 06/09/2023, 06/09/2017 COLORECTAL CANCER SCREENING Discontinued LIPID SCREENING Completed 01/24/2025, 09/07, 03/13/2023 COLOGUARD Discontinued FIT Discontinued SIGMOIDOSCOPY Discontinued Procedures Procedure Name Priority Date/Time Associated Diagnosis Comments JODIE PREPARATION Routine 05/17/2025 3:34 PM EST Tinea unguium FUNGUS CULTURE Routine 05/17/2025 3:34 PM EST Tinea unguium HGB A1C WITH EST AVG GLUCOSE Routine 01/24/2025 11:04 AM EDT Impaired fasting glucose LIPID COMPLETE PANEL Routine 01/24/2025 11:04 AM EDT Hyperlipidemia, unspecified from Last 3 Months or Most Recently Relevant to Health Maintenance Results * (ABNORMAL) JODIE Preparation (05/17/2025 3:34 PM EST) JODIE Prep Budding Yeast cells seen.(A) Negative for yeast or hyphal elements 05/18/2025 7:27 PM EST [facility] Various culture specimens STRUCTURE OF NAIL OF TOE / Unknown 05/17/2025 3:34 PM EST 05/18/2025 12:44 PM EST us Mahin Malloy MD LAB MICROBIOLOGY ORDERABLES Fi nal Result [facility] [address] [id number], [place] [phone] * Hemoglobin A1c with Est Avg Glucose (01/24/2025 11:04 AM EDT) Hemoglobin A1c 5.4 4.8 - 5.6 % 01/25/2025 12:37 AM EDT [facility] Estimated Average Glucose 107 91 - 123 mg/dL 01/25/2025 12:37 AM EDT [facility] Blood BLOOD / Unknown 01/24/2025 1 1:04 AM EDT 01/24/2025 9:57 PM EDT us Mahin Malloy MD LAB CHEMISTRY ORDERABLES Final Result [facility] [address] [place] [address], * Lipid Complete Panel (01/24/2025 11:04 AM EDT) Cholesterol 134 110 - 200 mg/dL [facility] 01/25/2025 12:29 AM EDT [facility] Triglyceride 68 40 - 149 mg/dL [facility] _[facility] 01/25/2025 12:29 AM EDT [facility] HDL 65 >=40 mg/dL [facility] _[facility] 01/25/2025 12:29 AM EDT [facility] Cholesterol/HDL 2.1 0.0 - 5.0 [facility] _[facility] 01/25/2025 12:29 AM EDT [facility] Non-HDL Cholesterol 69 <130 mg/dL [facility] _[facility] 01/25/2025 12:29 AM EDT [facility] LDL CALCULATION 55 50 - 99 mg/dL [facility] _[facility] 01/25/2025 12:29 AM EDT [facility] VLDL CALCULATION 14 8 - 30 mg/dL [facility] _[facility] 01/25/2025 12:29 AM EDT [facility] LDL/HDL Ratio 0.9 [facility] 01/25/2025 12:29 AM EDT [facility] Blood BLOOD / Unknown 01/24/2025 1 1:04 AM EDT 01/24/2025 9:57 PM EDT Narrative [facility] - 01/25/2025 12:29 AM EDT Cholesterol Recommended NCEP guidelines in mg/dL: Less than 200 Desirable 200 - 239 Borderline High Greater than or = 240 High Please Note: Total Chol/HDL Ratio Men Women 1/2 Avg. Risk 3.4 3.3 Avg. Risk 5.0 4.4 2X Avg. Risk 9.6 7.1 3X Avg. Risk 23.4 11.0 us Mahin Malloy MD LAB CHEMISTRY ORDERABLES Final Result Performing Organization Address City/State/[facility] Co de Phone Number [facility] [address] [place] [address], from Last 3 Months or Most Recently Relevant to Health Maintenance Insurance MEDICARE PART A & [place] [address] [facility] MEDICARE SUPPLEMENTAL Care Teams Extruder Operator Vertical Relationship Specialty Start Date End Date Mahin Malloy MD [facility] [address] [place] [address] PCP - General 11/18/11
--- OUTSIDE RECORDS SUMMARY | 2025-06-02 12:43 | XMS_ITS | Encounter Summary ---
Author Organization [facility] Address [address] [place] [address] Care Team Providers Care Counter Top Maker Name Role Phone Mahin Malloy MD Primary Care Provider [phone] Encounter Details Date Type Department Care Team (Late st Contact Info) Description 05/17/2025 Lab Requisition [facility], [facility] [address] [place] [address] Mahin Malloy MD [facility] [address] [place] [address] [address] [place] [address] Tinea unguium Social History Tobacco Use Types Packs/Day Years [...] [facility] [address] [facility] [address] [place] [address] Timbo Stiles DPM [address] [place] [address] 10/27/2025 9:15 AM EDT Office Visit [facility] [address] [facility] [address] [place] [address] Gurinder Patel MD [address] [facility] [address] [place], [place] [id number] Pending Results Name Type Priority Associated Diagnoses Date /Time FUNGUS CULTURE WITH STAIN Microbiology Routine Tinea unguium 05/17/2025 3:34 PM EST Fungus Culture Microbiology Routine Tinea unguium 05/17/2025 3:34 PM EST documented as of this encounter Procedures Procedure Name Priority Date/Time Associated Diagnosis Comments JODIE PREPARATION Routine 05/17/2025 3:34 PM EST Tinea unguium FUNGUS CULTURE Routine 05/17/2025 3:34 PM EST Tinea unguium documented in this encounter Results * (ABNORMAL) JODIE Preparation (05/17/2025 3:34 PM EST) JODIE Prep Budding Yeast cells seen.(A) Negative for yeast or hyphal elements 05/18/2025 7:27 PM EST [facility] Various culture specimens STRUCTURE OF NAIL OF TOE / Unknown 05/17/2025 3:34 PM EST 05/18/2025 12:44 PM EST us Mahin Malloy MD LAB MICROBIOLOGY ORDERABLES Fi nal Result [facility] [address] [facility], [address] [place] [address], [place] [phone] documented in this encounter Visit Diagnoses Diagnosis Tinea unguium Dermatophytosis of nail documented in this encounter Care Teams Counter Top Maker Relationship Specialty Start Date End Date Mahin Malloy MD [facility] [address] [facility] [address] [place] [address] PCP - General 11/18/11 documented as of this encounter
--- OUTSIDE RECORDS SUMMARY | 2025-06-02 12:43 | XMS_ITS | Data Portability ---
Author Organization [facility], [id number] Address [address] [place] [address] Care Team Providers Care Solid Waste Management Engineer Name Role Phone MELISSA MOE Referring Provider ZAY WU Swaging Machine Operator [facility] Loading Unit Operator Crimping ESTELLE FAJARDO Artificial Teeth Inspector SHARRI REESE Photographic Process Attendant [phone] CORNELIO HO Customs Manager LISA NATH Pain Management EZIO BERNAL Neurologist [facility] Primary Care Prov ider Assessment Encounter Date Assessment Date Assessment LastModified by Organization Details LastModified Time 04/20/2024 04/20/2024 April 20, 2 024 Ms Francis is commended for achieving and maintaining a 53 lb weight loss with lifestyle changes alone. She expresses a desire to lose further weight. With respect to her diet, she's done an excellent job of establishing new habits, is recognizing how she needs to eat for maintenance versus loss, and understands that it's fine to alternate periods of maintenance and loss. With respect to exercise, she is reminded that times she's had to move a lot (for example, every day visits to a hospital that necessitated long walks from parking lot to patient room, staying with family who have a lot of stairs, etc) weight has fallen. Currently, PT has ended as has twice weekly lymphedema treatment sessions. Given that back pain is the activity limiting factor and a course of Aqua PT lessened the pain / improved mobility, I advise her to repeat this. She should meet criteria for insurance to cover it. If not, sign up at for water exercise classes. We've discussed the pros / cons of anti obesity medication. For now, she wishes to continue without. Kidney function is stable/somewhat improved on last check. BP control as below. At a previous visit: She asks my opinion regarding an expensive supplement. I recommend that she use extra money for PT co-pays, pool membership and groceries. Initial Consultation We had a lengthy nutritional counseling session today as Ms Francis does not yet know the basics such as difference between carbohydrates, protein, fat. She is completely sedentary. We will start with focus on these two areas. She has at least relative contraindications to all weight loss medication options except glp1 agonsits which are the best choice given her insulin resistance. Unfortunately, medicare does not cover them. [email or web address] Not available 06/10/2024 15:26:44 08/03/2024 08/03/2024 August 03, 2 025 Ms Francis is commended for achieving and maintaining a 57 lb weight loss with lifestyle changes alone. 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 With respect to her diet, she's done an excellent job of establishing new habits, and understands that it's fine to alternate periods of maintenance and loss. With respect to exercise, she is reminded that times she's had to move a lot (for example, every day visits to a hospital that necessitated long walks from parking lot to patient room, staying with family who have a lot of stairs, etc) weight has fallen more. Back pain is the activity limiting factor so plan is to continue PT as long as possible (she knows to call the office for a repeat referral if needed) and to continue to advance daily walking. The importance of adequate protein intake and strength training as relates to sarcopenia and osteopenia is emphasized. We discussed the pros / cons of anti obesity medication, particularly glp1, glp1-gip, in light of the underlying liver fibrosis. For now, she wishes to continue without, but is going to read further about Wegovy. Kidney function is stable. BP as noted. At a previous visit: She asks my opinion regarding an expensive supplement. I recommend that she use extra money for PT co-pays, pool membership, and groceries. Initial Consultation We had a lengthy nutritional counseling session today as Ms Francis does not yet know the basics such as difference between carbohydrates, protein, fat. She is completely sedentary. We will start with focus on these two areas. She has at least relative contraindications to all weight loss medication options except glp1 agonsits which are the best choice given her insulin resistance. Unfortunately, medicare does not cover them. [email or web address] Not available 08/15/2024 20:36:47 10/28/2024 10/28/2024 October 28, 2024 Ms Francis is commended for achieving and maintaining a > 50 lb weight loss with lifestyle changes alone. 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 With respect to her diet, she's done an excellent job of establishing new habits, and understands that it's fine to alternate periods of maintenance and loss. With respect to exercise, she is reminded that times she's had to move a lot (for example, every day visits to a hospital that necessitated long walks from parking lot to patient room, staying with family who have a lot of stairs, etc) weight has fallen more. Back pain is the activity limiting factor so plan is to continue PT as long as possible (she knows to call the office for a repeat referral if needed) and to continue to advance daily walking. The importance of adequate protein intake and strength training as relates to sarcopenia and osteopenia is emphasized. We discussed the pros / cons of anti obesity medication, particularly glp1, glp1-gip, in light of the underlying liver fibrosis. She has since read about this family of medication and at this time, continues to want to proceed without. She is motivated to resume exercise and close attention to diet. Kidney function is stable. BP monitoring as noted --> understands will likely need to decrease anti hypertensive dose. At a previous visit: She asks my opinion regarding an expensive supplement. I recommend that she use extra money for PT co-pays, pool membership, and groceries. Initial Consultation We had a lengthy nutritional counseling session today as Ms Francis does not yet know the basics such as difference between carbohydrates, protein, fat. She is completely sedentary. We will start with focus on these two areas. She has at least relative contraindications to all weight loss medication options except glp1 agonsits which are the best choice given her insulin resistance. Unfortunately, medicare does not cover them. [email or web address] Not available 10/31/2024 22:13:24 02/08/2025 02/08/2025 February 08, 025 Ms Francis is commended for achieving and maintaining a 50+ lb weight loss with lifestyle changes alone. Her many comorbidities, among them cvd and liver fibrosis, require continued aggressive treatment of the obesity. With respect to her diet, she's done an excellent job of establishing new habits, and understands that it's fine to alternate periods of maintenance and loss. With respect to exercise, she is reminded that weight has fallen during times she's had to move a lot - for example, every day visits to a hospital that necessitated long walks from parking lot to patient room, staying with family who have a lot of stairs, etc. Back pain is the activity limiting factor so plan is to continue PT as long as possible (she knows to call the office for a repeat referral if needed) and to continue to advance daily walking. She acknowledges that Pain Management encourages exercise. The importance of adequate protein intake and strength training as relates to sarcopenia and osteopenia is emphasized. We have discussed the pros / cons of anti obesity medication, particularly glp1, glp1-gip, in light of the underlying liver fibrosis. She has since read about this group of medications and, at this time, continues to want to proceed without. She is motivated to resume exercise and close attention to diet. Kidney function is stable. BP monitoring as noted --> understands will likely need to decrease anti hypertensive dose. Today we had another long talk about exercise, specifically reviewed protein intake including how to track She voices understanding that weight will start falling again once lessens frequency of indulgences and increases movement 60 minutes; reviewing records, gathering history, assessing status of chronic health conditions as relates to obesity, counseling: emotional, dietary, exercise At a previous visit: She asks my opinion regarding an expensive supplement. I recommend that she use extra money for PT co-pays, pool membership, and groceries. Initial Consultation We had a lengthy nutritional counseling session today as Ms Francis does not yet know the basics such as difference between carbohydrates, protein, fat. She is completely sedentary. We will start with focus on these two areas. She has at least relative contraindications to all weight loss medication options except glp1 agonsits which are the best choice given her insulin resistance. Unfortunately, medicare does not cover them. [email or web address] Not available 05/08/2025 10:04:52 Plan of Treatment Reminders Order Date Submit Date Provider Last Modified By Organization Details Last Modified Time Details Appointments Follow -Up 60 026 10:00AM Gricelda Gordon MD Not available Not available Not available Follow -Up 60 026 10:00AM Gricelda Gordon MD Not available Not available Not available Lab None record ed. Referral None record ed. Procedures None record ed. Surgeries None record ed. Imaging None record ed. Medication Orders None record ed. Patient TargetsNo targets recorded. Patient Instructions Encounter Date Encounter Id Patient Instructions Last Modified By Organization Details Last Modified Time 04/20/2024 [id number] aquatic/pool therapy* Not available 07/12/2024 13:00:37 10/28/2024 [id number] aquatic/pool therapy* Not available 05/30/2025 13:12:09 02/08/2025 [id number] aquatic/pool therapy* ATHENAFAX Not available 05/08/2025 10:15:17 Reason for Referral None Reported. Results Created Date Observation Date Name Description Value Unit Range Abnormal Flag Note LastModifiedBy Organization Detail LastModifiedTime 09/11/1909/11/2024 Basic metab olic 2008 panel with ioniz ed calci um - Serum or Plasm a potassium [moles/volum e] in serum or plasma text: text: text: low: 3.5mmo l/lhig h: 5.5mmo l/L Potas sium 4.2 3.5 - 5.5 mmol/ L ELECS YS ANTI- SARS- COV-2 _[facility] S_EUA 09/12 7:39 AM EDT [facility] Not Available Not Available 02/03/2025 11:10:08 09/11/19 25 09/11/2024 Basic metab olic 2008 panel with ioniz ed calci um - Serum or Plasm a sodium [moles/volum e] in serum or plasma text: text: text: low: 133mmo l/lhig h: 145mmo l/L Sodiu m 143 133 - 145 mmol/ L ELECS YS ANTI- SARS- COV-2 _ROCH E DIAGN OSTIC S_EUA 09/12 7:39 AM EDT [facility] Not Available Not Available 02/03/2025 11:10:08 09/11/1909/11/2024 Basic metab olic 2007 panel with ioniz ed calci um - Serum or Plasm a chloride [moles/volum e] in serum or plasma text: text: text: low: 98mmol /lhigh : 110mmo l/L Chlor javier 105 98 - 110 mmol/ L ELECS YS ANTI- SARS- COV-2 _ROCH E DIAGN OSTIC S_EUA 09/12 7:39 AM EDT [facility] Not Available Not Available 02/03/2025 11:10:08 09/11/1909/11/2024 Basic metab olic 2007 panel with ioniz ed calci um - Serum or Plasm a glucose [mass/volume ] in serum or plasma text: text: text: low: 70mg/d lhigh: 99mg/d L Gluco se 86 70 - 99 mg/dL ELECS YS ANTI- SARS- COV-2 _ROCH E DIAGN OSTIC S_EUA 09/12 7:39 AM EDT [facility] Not Available Not Available 02/03/2025 11:10:08 09/11/1909/11/2024 Basic metab olic 2008 panel with ioniz ed calci um - Serum or Plasm a calcium [mass/volume ] in serum or plasma text: text: text: low: 8.4mg/ dlhigh : 10.5mg /dL Calci um 9.4 8.4 - 10.5 mg/dL ELECS YS ANTI- SARS- COV-2 _RO[facility] E DIAGN OSTIC S_EUA 09/12 7:39 AM EDT [facility] Not Available Not Available 02/03/2025 11:10:08 09/11/1909/11/2024 Basic metab olic 2008 panel with ioniz ed calci um - Serum or Plasm a urea nitrogen [mass/volume ] in serum or plasma text: text: text: low: 6mg/dl high: 22mg/d L high BUN 27 (H) 6 - 22 mg/dL ELECS YS ANTI- SARS- COV-2 _RO[facility] E DIAGN OSTIC S_EUA 09/12 7:39 AM EDT [facility] Not Available Not Available 02/03/2025 11:10:08 09/11/1909/11/2024 Basic metab olic 2007 panel with ioniz ed calci um - Serum or Plasm a creatinine [mass/volume ] in serum or plasma text: text: text: low: 0.8mg/ dlhigh : 1.4mg/ dL Creat inine 1.0 0.8 - 1.4 mg/dL ELECS YS ANTI- SARS- COV-2 _ROCH E DIAGN OSTIC S_EUA 09/12 7:39 AM EDT [facility] Not Available Not Available 02/03/2025 11:10:08 09/11/1909/11/2024 Basic metab olic 2007 panel with ioniz ed calci um - Serum or Plasm a bicarbonate [moles/volum e] in serum or plasma text: text: text: low: 20mmol /lhigh : 32mmol /L CO2 24 20 - 32 mmol/ L ELECS YS ANTI- SARS- COV-2 _ROCH E DIAGN OSTIC S_EUA 09/12 7:39 AM EDT [facility] Not Available Not Available 02/03/2025 11:10:08 09/11/1909/11/2024 Basic metab olic 2007 panel with ioniz ed calci um - Serum or Plasm a glomerular filtration rate [volume rate/area] in serum, plasma or blood by creatinine-b ased formula (CKD-epi 2020)/1.73 sq M 54.4 text: text: text: text: >60.0 mL/min /1.73 sq.m. low eGFR 54.4 (L) >60.0 mL/mi n/1.7 3 sq.m. ELECS YS ANTI- SARS- COV-2 _ROCH E DIAGN OSTIC S_EUA 09/12 7:39 AM EDT [facility] Not Available Not Available 02/03/2025 11:10:08 09/11/1909/11/2024 Basic metab olic 2008 panel with ioniz ed calci um - Serum or Plasm a anion gap in serum or plasma by calculated.4 ions text: text: text: low: 3mmol/ lhigh: 15mmol /L Anion Gap 14.0 3.0 - 15.0 mmol/ L ELECS YS ANTI- SARS- COV-2 _ROCH E DIAGN OSTIC S_EUA 09/12 7:39 AM EDT [facility] Not Available Not Available 02/03/2025 11:10:08 09/11/1909/11/2024 Basic metab olic 2008 panel with ioniz ed calci um - Serum or Plasm a interpretati on and review of laboratory results Abnorm al Not Available Not Available 11:10:08 09/11/1909/11/2024 CBC panel - Blood by Autom ated count leukocytes [#/volume] in blood by automated count text: text: text: low: 4K/ulh igh: 11K/uL WBC 6.3 4.0 - 11.0 K/uL 09/11 6:02 PM EDT [facility] Not Available Not Available 02/03/2025 11:10:08 09/11/1909/11/2024 CBC panel - Blood by Autom ated count erythrocytes [#/volume] in blood by automated count 4.85 text: text: text: text: 3.80 - 5.20 M/uL RBC 4.85 3.80 - 5.20 M/uL 09/11 6:02 PM EDT [facility] Not Available Not Available 02/03/2025 11:10:08 09/11/1909/11/2024 CBC panel - Blood by Autom ated count hemoglobin [mass/volume ] in blood text: text: text: low: 11.7g/ dlhigh : 16.1g/ dL HGB 13.5 11.7 - 16.1 g/dL 09/11 6:02 PM EDT [facility] Not Available Not Available 02/03/2025 11:10:08 09/11/1909/11/2024 CBC panel - Blood by Autom ated count hematocrit [volume fraction] of blood by automated count text: text: text: low: 35.1%h igh: 48.3% HCT 43.5 35.1 - 48.3 % 09/11 6:02 PM EDT [facility] Not Available Not Available 02/03/2025 11:10:08 09/11/1909/11/2024 CBC panel - Blood by Autom ated count MCV [entitic mean volume] in red blood cells by automated count text: text: text: low: 80flhi gh: 99fL MCV 90 80 - 99 fL 09/11 6:02 PM EDT [facility] Not Available Not Available 02/03/2025 11:10:08 09/11/1909/11/2024 CBC panel - Blood by Autom ated count MCH [entitic mass] by automated count text: text: text: low: 26pghi gh: 34pg MCH 28 26 - 34 pg 09/11 6:02 PM EDT [facility] Not Available Not Available 02/03/2025 11:10:08 09/11/1909/11/2024 CBC panel - Blood by Autom ated count MCHC [entitic mass/volume] in red blood cells by automated count text: text: text: low: 31g/dl high: 36g/dL MCHC 31 31 - 36 g/dL 09/11 6:02 PM EDT [facility] Not Available Not Available 02/03/2025 11:10:08 09/11/1909/11/2024 CBC panel - Blood by Autom ated count erythrocyte [distwidth] in blood by automated count text: text: text: low: 10%hig h: 15.5% RDW 14.5 10.0 - 15.5 % 09/11 6:02 PM EDT [facility] Not Available Not Available 02/03/2025 11:10:08 09/11/19 25 09/11/2024 CBC panel - Blood by Autom ated count platelets [#/volume] in blood by automated count text: text: text: low: 140K/u lhigh: 440K/u L Plate let 234 140 - 440 K/uL 09/11 6:02 PM EDT [facility] Not Available Not Available 02/03/2025 11:10:08 09/11/1909/11/2024 CBC panel - Blood by Autom ated count platelet [entitic mean volume] in blood by automated count text: text: text: low: 9flhig h: 13fL MPV 9.8 9.0 - 13.0 fL 09/11 6:02 PM EDT [facility] Not Available Not Available 02/03/2025 11:10:08 09/11/1909/11/2024 CBC panel - Blood by Autom ated count interpretati on and review of laboratory results Normal Not Available Not Available 01/08 11:10:08 09/11/1909/11/2024 Basic metab olic 2008 panel with ioniz ed calci um - Serum or Plasm a potassium [moles/volum e] in serum or plasma text: text: text: text: low: 3.5mmo l/lhig h: 5.5mmo l/L Potas sium 4.2 3.5 - 5.5 mmol/ L ELECS YS ANTI- SARS- COV-2 _ROCH E DIAGN OSTIC S_EUA 09/12 7:39 AM EDT [facility] Not Available Not Available 02/03/2025 11:10:08 09/11/1909/11/2024 Basic metab olic 2008 panel with ioniz ed calci um - Serum or Plasm a sodium [moles/volum e] in serum or plasma text: text: text: text: low: 133mmo l/lhig h: 145mmo l/L Sodiu m 143 133 - 145 mmol/ L ELECS YS ANTI- SARS- COV-2 _ROCH E DIAGN OSTIC S_EUA 09/12 7:39 AM EDT [facility] Not Available Not Available 02/03/2025 11:10:08 09/11/1909/11/2024 Basic metab olic 2008 panel with ioniz ed calci um - Serum or Plasm a chloride [moles/volum e] in serum or plasma text: text: text: text: low: 98mmol /lhigh : 110mmo l/L Chlor javier 105 98 - 110 mmol/ L ELECS YS ANTI- SARS- COV-2 _ROCH E DIAGN OSTIC S_EUA 09/12 7:39 AM EDT [facility] Not Available Not Available 02/03/2025 11:10:08 09/11/1909/11/2024 Basic metab olic 2008 panel with ioniz ed calci um - Serum or Plasm a glucose [mass/volume ] in serum or plasma text: text: text: text: low: 70mg/d lhigh: 99mg/d L Gluco se 86 70 - 99 mg/dL ELECS YS ANTI- SARS- COV-2 _[facility] E DIAGN OSTIC S_EUA 09/12 7:39 AM EDT [facility] Not Available Not Available 02/03/2025 11:10:08 09/11/1909/11/2024 Basic metab olic 2008 panel with ioniz ed calci um - Serum or Plasm a calcium [mass/volume ] in serum or plasma text: text: text: text: low: 8.4mg/ dlhigh : 10.5mg /dL Calci um 9.4 8.4 - 10.5 mg/dL ELECS YS ANTI- SARS- COV-2 _RO[facility] E DIAGN OSTIC S_EUA 09/12 7:39 AM EDT [facility] Not Available Not Available 02/03/2025 11:10:08 09/11/1909/11/2024 Basic metab olic 2008 panel with ioniz ed calci um - Serum or Plasm a urea nitrogen [mass/volume ] in serum or plasma text: text: text: text: low: 6mg/dl high: 22mg/d L high BUN 27 (H) 6 - 22 mg/dL ELECS YS ANTI- SARS- COV-2 _ROCH E DIAGN OSTIC S_EUA 09/12 7:39 AM EDT [facility] Not Available Not Available 02/03/2025 11:10:08 09/11/1909/11/2024 Basic metab olic 2008 panel with ioniz ed calci um - Serum or Plasm a creatinine [mass/volume ] in serum or plasma text: text: text: text: low: 0.8mg/ dlhigh : 1.4mg/ dL Creat inine 1.0 0.8 - 1.4 mg/dL ELECS YS ANTI- SARS- COV-2 _ROCH E DIAGN OSTIC S_EUA 09/12 7:39 AM EDT [facility] Not Available Not Available 02/03/2025 11:10:08 09/11/1909/11/2024 Basic metab olic 2008 panel with ioniz ed calci um - Serum or Plasm a bicarbonate [moles/volum e] in serum or plasma text: text: text: text: low: 20mmol /lhigh : 32mmol /L CO2 24 20 - 32 mmol/ L ELECS YS ANTI- SARS- COV-2 _ROCH E DIAGN OSTIC S_EUA 09/12 7:39 AM EDT [facility] Not Available Not Available 02/03/2025 11:10:08 09/11/1909/11/2024 Basic metab olic 2008 panel with ioniz ed calci um - Serum or Plasm a glomerular filtration rate [volume rate/area] in serum, plasma or blood by creatinine-b ased formula (CKD-epi 2020)/1.73 sq M 54.4 text: text: text: text: text: >60.0 mL/min /1.73 sq.m. low eGFR 54.4 (L) >60.0 mL/mi n/1.7 3 sq.m. ELECS YS ANTI- SARS- COV-2 _RO[facility] E DIAGN OSTIC S_EUA 09/12 7:39 AM EDT [facility] Not Available Not Available 02/03/2025 11:10:08 09/11/19 25 09/11/2024 Basic metab olic 2008 panel with ioniz ed calci um - Serum or Plasm a anion gap in serum or plasma by calculated.4 ions text: text: text: text: low: 3mmol/ lhigh: 15mmol /L Anion Gap 14.0 3.0 - 15.0 mmol/ L ELECS YS ANTI- SARS- COV-2 _RO[facility] E DIAGN OSTIC S_EUA 09/12 7:39 AM EDT [facility] Not Available Not Available 02/03/2025 11:10:08 09/11/1909/11/2024 Basic metab olic 2008 panel with ioniz ed calci um - Serum or Plasm a interpretati on and review of laboratory results Abnorm al Not Available Not Available 11:10:08 09/11/1909/11/2024 CBC panel - Blood by Autom ated count leukocytes [#/volume] in blood by automated count text: text: text: text: low: 4K/ulh igh: 11K/uL WBC 6.3 4.0 - 11.0 K/uL 09/11 6:02 PM EDT [facility] Not Available Not Available 02/03/2025 11:10:08 09/11/1909/11/2024 CBC panel - Blood by Autom ated count erythrocytes [#/volume] in blood by automated count 4.85 text: text: text: text: text: 3.80 - 5.20 M/uL RBC 4.85 3.80 - 5.20 M/uL 09/11 6:02 PM EDT [facility] Not Available Not Available 02/03/2025 11:10:08 09/11/1909/11/2024 CBC panel - Blood by Autom ated count hemoglobin [mass/volume ] in blood text: text: text: text: low: 11.7g/ dlhigh : 16.1g/ dL HGB 13.5 11.7 - 16.1 g/dL 09/11 6:02 PM EDT [facility] Not Available Not Available 02/03/2025 11:10:08 09/11/1909/11/2024 CBC panel - Blood by Autom ated count hematocrit [volume fraction] of blood by automated count text: text: text: text: low: 35.1%h igh: 48.3% HCT 43.5 35.1 - 48.3 % 09/11 6:02 PM EDT [facility] Not Available Not Available 02/03/2025 11:10:08 09/11/1909/11/2024 CBC panel - Blood by Autom ated count MCV [entitic mean volume] in red blood cells by automated count text: text: text: text: low: 80flhi gh: 99fL MCV 90 80 - 99 fL 09/11 6:02 PM EDT [facility] Not Available Not Available 02/03/2025 11:10:08 09/11/1909/11/2024 CBC panel - Blood by Autom ated count MCH [entitic mass] by automated count text: text: text: text: low: 26pghi gh: 34pg MCH 28 26 - 34 pg 09/11 6:02 PM EDT [facility] Not Available Not Available 02/03/2025 11:10:08 09/11/1909/11/2024 CBC panel - Blood by Autom ated count MCHC [entitic mass/volume] in red blood cells by automated count text: text: text: text: low: 31g/dl high: 36g/dL MCHC 31 31 - 36 g/dL 09/11 6:02 PM EDT [facility] Not Available Not Available 02/03/2025 11:10:08 09/11/1909/11/2024 CBC panel - Blood by Autom ated count erythrocyte [distwidth] in blood by automated count text: text: text: text: low: 10%hig h: 15.5% RDW 14.5 10.0 - 15.5 % 09/11 6:02 PM EDT [facility] Not Available Not Available 02/03/2025 11:10:08 09/11/1909/11/2024 CBC panel - Blood by Autom ated count platelets [#/volume] in blood by automated count text: text: text: text: low: 140K/u lhigh: 440K/u L Plate let 234 140 - 440 K/uL 09/11 6:02 PM EDT [facility] Not Available Not Available 02/03/2025 11:10:08 09/11/1909/11/2024 CBC panel - Blood by Autom ated count platelet [entitic mean volume] in blood by automated count text: text: text: text: low: 9flhig h: 13fL MPV 9.8 9.0 - 13.0 fL 09/11 6:02 PM EDT [facility] Not Available Not Available 02/03/2025 11:10:08 09/11/1909/11/2024 CBC panel - Blood by Autom ated count interpretati on and review of laboratory results Normal Not Available Not Available 01/08 11:10:08 09/11/1909/11/2024 Basic metab olic 2007 panel with ioniz ed calci um - Serum or Plasm a potassium [moles/volum e] in serum or plasma text: text: text: text: text: low: 3.5mmo l/lhig h: 5.5mmo l/L Potas sium 4.2 3.5 - 5.5 mmol/ L ELECS YS ANTI- SARS- COV-2 _ROCH E DIAGN OSTIC S_EUA 09/12 7:39 AM EDT [facility] LAB Not Available Not Available 02/07/2025 13:45:58 09/11/1909/11/2024 Basic metab olic 2008 panel with ioniz ed calci um - Serum or Plasm a sodium [moles/volum e] in serum or plasma text: text: text: text: text: low: 133mmo l/lhig h: 145mmo l/L Sodiu m 143 133 - 145 mmol/ L ELECS YS ANTI- SARS- COV-2 _[facility] 09/12 7:39 AM EDT [facility] Not Available Not Available 02/07/2025 13:45:58 09/11/1909/11/2024 Basic metab olic 2008 panel with ioniz ed calci um - Serum or Plasm a chloride [moles/volum e] in serum or plasma text: text: text: text: text: low: 98mmol /lhigh : 110mmo l/L Chlor javier 105 98 - 110 mmol/ L ELECS YS ANTI- SARS- COV-2 _[facility] S_EUA 09/12 7:39 AM EDT [facility] Not Available Not Available 02/07/2025 13:45:58 09/11/1909/11/2024 Basic metab olic 2007 panel with ioniz ed calci um - Serum or Plasm a glucose [mass/volume ] in serum or plasma text: text: text: text: text: low: 70mg/d lhigh: 99mg/d L Gluco se 86 70 - 99 mg/dL ELECS YS ANTI- SARS- COV-2 _[facility] S_EUA 09/12 7:39 AM EDT [facility] Not Available Not Available 02/07/2025 13:45:58 09/11/1909/11/2024 Basic metab olic 2007 panel with ioniz ed calci um - Serum or Plasm a calcium [mass/volume ] in serum or plasma text: text: text: text: text: low: 8.4mg/ dlhigh : 10.5mg /dL Calci um 9.4 8.4 - 10.5 mg/dL ELECS YS ANTI- SARS- COV-2 _[facility] S_EUA 09/12 7:39 AM EDT [facility] Not Available Not Available 02/07/2025 13:45:58 09/11/1909/11/2024 Basic metab olic 2007 panel with ioniz ed calci um - Serum or Plasm a urea nitrogen [mass/volume ] in serum or plasma text: text: text: text: text: low: 6mg/dl high: 22mg/d L high BUN 27 (H) 6 - 22 mg/dL ELECS YS ANTI- SARS- COV-2 _[facility] S_EUA 09/12 7:39 AM EDT [facility] Not Available Not Available 02/07/2025 13:45:58 09/11/1909/11/2024 Basic metab olic 2008 panel with ioniz ed calci um - Serum or Plasm a creatinine [mass/volume ] in serum or plasma text: text: text: text: text: low: 0.8mg/ dlhigh : 1.4mg/ dL Creat inine 1.0 0.8 - 1.4 mg/dL ELECS YS ANTI- SARS- COV-2 _[facility] S_EUA 09/12 7:39 AM EDT [facility] Not Available Not Available 02/07/2025 13:45:58 09/11/1909/11/2024 Basic metab olic 2008 panel with ioniz ed calci um - Serum or Plasm a bicarbonate [moles/volum e] in serum or plasma text: text: text: text: text: low: 20mmol /lhigh : 32mmol /L CO2 24 20 - 32 mmol/ L ELECS YS ANTI- SARS- COV-2 _[facility] S_EUA 09/12 7:39 AM EDT [facility] Not Available Not Available 02/07/2025 13:45:58 09/11/1909/11/2024 Basic metab olic 2008 panel with ioniz ed calci um - Serum or Plasm a glomerular filtration rate [volume rate/area] in serum, plasma or blood by creatinine-b ased formula (CKD-epi 2020)/1.73 sq M 54.4 text: text: text: text: text: text: >60.0 mL/min /1.73 sq.m. low eGFR 54.4 (L) >60.0 mL/mi n/1.7 3 sq.m. ELECS YS ANTI- SARS- COV-2 _[facility] S_EUA 09/12 7:39 AM EDT [facility] Not Available Not Available 02/07/2025 13:45:58 09/11/19 25 09/11/2024 Basic metab olic 2008 panel with ioniz ed calci um - Serum or Plasm a anion gap in serum or plasma by calculated.4 ions text: text: text: text: text: low: 3mmol/ lhigh: 15mmol /L Anion Gap 14.0 3.0 - 15.0 mmol/ L ELECS YS ANTI- SARS- COV-2 _[facility] S_EUA 09/12 7:39 AM EDT [facility] Not Available Not Available 02/07/2025 13:45:58 09/11/19 25 09/11/2024 Basic metab olic 2008 panel with zia haley um - Serum or Plasm a interpretati on and review of laboratory results Abnorm al Not Available Not Available 13:45:58 09/11/19 25 09/10/2024 CBC panel - Blood by Autom ated count leukocytes [#/volume] in blood by automated count text: text: text: text: text: low: 4K/ulh igh: 11K/uL WBC 6.3 4.0 - 11.0 K/uL 09/11 6:02 PM EDT [facility] Not Available Not Available 02/07/2025 13:45:58 09/11/19 25 09/10/2024 CBC panel - Blood by Autom ated count erythrocytes [#/volume] in blood by automated count 4.85 text: text: text: text: text: text: 3.80 - 5.20 M/uL RBC 4.85 3.80 - 5.20 M/uL 09/11 6:02 PM EDT [facility] Not Available Not Available 02/07/2025 13:45:58 09/11/1909/10/2024 CBC panel - Blood by Autom ated count hemoglobin [mass/volume ] in blood text: text: text: text: text: low: 11.7g/ dlhigh : 16.1g/ dL HGB 13.5 11.7 - 16.1 g/dL 09/11 6:02 PM EDT [facility] Not Available Not Available 02/07/2025 13:45:58 09/11/19 25 09/10/2024 CBC panel - Blood by Autom ated count hematocrit [volume fraction] of blood by automated count text: text: text: text: text: low: 35.1%h igh: 48.3% HCT 43.5 35.1 - 48.3 % 09/11 6:02 PM EDT [facility] Not Available Not Available 02/07/2025 13:45:58 09/11/19 25 09/10/2024 CBC panel - Blood by Autom ated count MCV [entitic mean volume] in red blood cells by automated count text: text: text: text: text: low: 80flhi gh: 99fL MCV 90 80 - 99 fL 09/11 6:02 PM EDT [facility] Not Available Not Available 02/07/2025 13:45:58 09/11/19 25 09/10/2024 CBC panel - Blood by Autom ated count MCH [entitic mass] by automated count text: text: text: text: text: low: 26pghi gh: 34pg MCH 28 26 - 34 pg 09/11 6:02 PM EDT [facility] Not Available Not Available 02/07/2025 13:45:58 09/11/1909/10/2024 CBC panel - Blood by Autom ated count MCHC [entitic mass/volume] in red blood cells by automated count text: text: text: text: text: low: 31g/dl high: 36g/dL MCHC 31 31 - 36 g/dL 09/11 6:02 PM EDT [facility] Not Available Not Available 02/07/2025 13:45:58 09/11/1909/10/2024 CBC panel - Blood by Autom ated count erythrocyte [distwidth] in blood by automated count text: text: text: text: text: low: 10%hig h: 15.5% RDW 14.5 10.0 - 15.5 % 09/11 6:02 PM EDT [facility] Not Available Not Available 02/07/2025 13:45:58 09/11/19 25 09/10/2024 CBC panel - Blood by Autom ated count platelets [#/volume] in blood by automated count text: text: text: text: text: low: 140K/u lhigh: 440K/u L Plate let 234 140 - 440 K/uL 09/11 6:02 PM EDT [facility] Not Available Not Available 02/07/2025 13:45:58 09/11/19 25 09/10/2024 CBC panel - Blood by Autom ated count platelet [entitic mean volume] in blood by automated count text: text: text: text: text: low: 9flhig h: 13fL MPV 9.8 9.0 - 13.0 fL 09/11 6:02 PM EDT [facility] Not Available Not Available 02/07/2025 13:45:58 09/11/19 25 09/10/2024 CBC panel - Blood by Autom ated count interpretati on and review of laboratory results Normal Not Available Not Available 06/2024 13:45:58 09/11/1909/11/2024 Basic metab olic 2008 panel with ioniz ed calci um - Serum or Plasm a potassium [moles/volum e] in serum or plasma text: text: text: text: text: text: low: 3.5mmo l/lhig h: 5.5mmo l/L Potas sium 4.2 3.5 - 5.5 mmol/ L ELECS YS ANTI- SARS- COV-2 _[facility] S_EUA 09/12 7:39 AM EDT [facility] Not Available Not Available 02/07/2025 13:45:58 09/11/1909/11/2024 Basic metab olic 2008 panel with ioniz ed calci um - Serum or Plasm a sodium [moles/volum e] in serum or plasma text: text: text: text: text: text: low: 133mmo l/lhig h: 145mmo l/L Sodiu m 143 133 - 145 mmol/ L ELECS YS ANTI- SARS- COV-2 _[facility] S_EUA 09/12 7:39 AM EDT [facility] Not Available Not Available 02/07/2025 13:45:58 09/11/1909/11/2024 Basic metab olic 2008 panel with ioniz ed calci um - Serum or Plasm a chloride [moles/volum e] in serum or plasma text: text: text: text: text: text: low: 98mmol /lhigh : 110mmo l/L Chlor javier 105 98 - 110 mmol/ L ELECS YS ANTI- SARS- COV-2 _[facility] S_EUA 09/12 7:39 AM EDT [facility] Not Available Not Available 02/07/2025 13:45:58 09/11/1909/11/2024 Basic metab olic 2008 panel with ioniz ed calci um - Serum or Plasm a glucose [mass/volume ] in serum or plasma text: text: text: text: text: text: low: 70mg/d lhigh: 99mg/d L Gluco se 86 70 - 99 mg/dL ELECS YS ANTI- SARS- COV-2 _[facility] S_EUA 09/12 7:39 AM EDT [facility] Not Available Not Available 02/07/2025 13:45:58 09/11/1909/11/2024 Basic metab olic 2008 panel with ioniz ed calci um - Serum or Plasm a calcium [mass/volume ] in serum or plasma text: text: text: text: text: text: low: 8.4mg/ dlhigh : 10.5mg /dL Calci um 9.4 8.4 - 10.5 mg/dL ELECS YS ANTI- SARS- COV-2 _[facility] S_EUA 09/12 7:39 AM EDT [facility] Not Available Not Available 02/07/2025 13:45:58 09/11/1909/11/2024 Basic metab olic 2008 panel with ioniz ed calci um - Serum or Plasm a urea nitrogen [mass/volume ] in serum or plasma text: text: text: text: text: text: low: 6mg/dl high: 22mg/d L high BUN 27 (H) 6 - 22 mg/dL ELECS YS ANTI- SARS- COV-2 _[facility] S_EUA 09/12 7:39 AM EDT [facility] Not Available Not Available 02/07/2025 13:45:58 09/11/1909/11/2024 Basic metab olic 2008 panel with ioniz ed calci um - Serum or Plasm a creatinine [mass/volume ] in serum or plasma text: text: text: text: text: text: low: 0.8mg/ dlhigh : 1.4mg/ dL Creat inine 1.0 0.8 - 1.4 mg/dL ELECS YS ANTI- SARS- COV-2 _[facility] S_EUA 09/12 7:39 AM EDT [facility] Not Available Not Available 02/07/2025 13:45:58 09/11/1909/11/2024 Basic metab olic 2008 panel with ioniz ed calci um - Serum or Plasm a bicarbonate [moles/volum e] in serum or plasma text: text: text: text: text: text: low: 20mmol /lhigh : 32mmol /L CO2 24 20 - 32 mmol/ L ELECS YS ANTI- SARS- COV-2 _[facility] S_EUA 09/12 7:39 AM EDT [facility] Not Available Not Available 02/07/2025 13:45:58 09/11/1909/11/2024 Basic metab olic 2007 panel with ioniz ed calci um - Serum or Plasm a glomerular filtration rate [volume rate/area] in serum, plasma or blood by creatinine-b ased formula (CKD-epi 2020)/1.73 sq M 54.4 text: text: text: text: text: text: text: >60.0 mL/min /1.73 sq.m. low eGFR 54.4 (L) >60.0 mL/mi n/1.7 3 sq.m. ELECS YS ANTI- SARS- COV-2 _[facility] S_EUA 09/12 7:39 AM EDT [facility] Not Available Not Available 02/07/2025 13:45:58 09/11/1909/11/2024 Basic metab olic 2008 panel with ioniz ed calci um - Serum or Plasm a anion gap in serum or plasma by calculated.4 ions text: text: text: text: text: text: low: 3mmol/ lhigh: 15mmol /L Anion Gap 14.0 3.0 - 15.0 mmol/ L ELECS YS ANTI- SARS- COV-2 _[facility] S_EUA 09/12 7:39 AM EDT [facility] Not Available Not Available 02/07/2025 13:45:58 09/11/19 25 09/11/2024 Basic metab olic 2008 panel with ioniz ed calci um - Serum or Plasm a interpretati on and review of laboratory results Abnorm al Not Available Not Available 13:45:58 09/11/19 25 09/10/2024 CBC panel - Blood by Autom ated count leukocytes [#/volume] in blood by automated count text: text: text: text: text: text: low: 4K/ulh igh: 11K/uL WBC 6.3 4.0 - 11.0 K/uL 09/11 6:02 PM EDT [facility] Not Available Not Available 02/07/2025 13:45:58 09/11/1909/10/2024 CBC panel - Blood by Autom ated count erythrocytes [#/volume] in blood by automated count 4.85 text: text: text: text: text: text: text: 3.80 - 5.20 M/uL RBC 4.85 3.80 - 5.20 M/uL 09/11 6:02 PM EDT [facility] Not Available Not Available 02/07/2025 13:45:58 09/11/19 25 09/10/2024 CBC panel - Blood by Autom ated count hemoglobin [mass/volume ] in blood text: text: text: text: text: text: low: 11.7g/ dlhigh : 16.1g/ dL HGB 13.5 11.7 - 16.1 g/dL 09/11 6:02 PM EDT [facility] Not Available Not Available 02/07/2025 13:45:58 09/11/1909/10/2024 CBC panel - Blood by Autom ated count hematocrit [volume fraction] of blood by automated count text: text: text: text: text: text: low: 35.1%h igh: 48.3% HCT 43.5 35.1 - 48.3 % 09/11 6:02 PM EDT [facility] Not Available Not Available 02/07/2025 13:45:58 09/11/19 25 09/10/2024 CBC panel - Blood by Autom ated count MCV [entitic mean volume] in red blood cells by automated count text: text: text: text: text: text: low: 80flhi gh: 99fL MCV 90 80 - 99 fL 09/11 6:02 PM EDT [facility] Not Available Not Available 02/07/2025 13:45:58 09/11/19 25 09/10/2024 CBC panel - Blood by Autom ated count MCH [entitic mass] by automated count text: text: text: text: text: text: low: 26pghi gh: 34pg MCH 28 26 - 34 pg 09/11 6:02 PM EDT [facility] Not Available Not Available 02/07/2025 13:45:58 09/11/1909/10/2024 CBC panel - Blood by Autom ated count MCHC [entitic mass/volume] in red blood cells by automated count text: text: text: text: text: text: low: 31g/dl high: 36g/dL MCHC 31 31 - 36 g/dL 09/11 6:02 PM EDT [facility] Not Available Not Available 02/07/2025 13:45:58 09/11/1909/10/2024 CBC panel - Blood by Autom ated count erythrocyte [distwidth] in blood by automated count text: text: text: text: text: text: low: 10%hig h: 15.5% RDW 14.5 10.0 - 15.5 % 09/11 6:02 PM EDT [facility] Not Available Not Available 02/07/2025 13:45:58 09/11/1909/10/2024 CBC panel - Blood by Autom ated count platelets [#/volume] in blood by automated count text: text: text: text: text: text: low: 140K/u lhigh: 440K/u L Plate let 234 140 - 440 K/uL 09/11 6:02 PM EDT [facility] Not Available Not Available 02/07/2025 13:45:58 09/11/19 25 09/10/2024 CBC panel - Blood by Autom ated count platelet [entitic mean volume] in blood by automated count text: text: text: text: text: text: low: 9flhig h: 13fL MPV 9.8 9.0 - 13.0 fL 09/11 6:02 PM EDT [facility] Not Available Not Available 02/07/2025 13:45:58 09/11/1909/10/2024 CBC panel - Blood by Autom ated count interpretati on and review of laboratory results Normal Not Available Not Available 06/2024 13:45:58 09/11/1909/11/2024 BMP + ioniz ed calci um, serum or plasm a potassium, serum or plasma text: text: text: text: text: text: text: low: 3.5mmo l/lhig h: 5.5mmo l/L Potas sium 4.2 3.5 - 5.5 mmol/ L ELECS YS ANTI- SARS- COV-2 _[facility]ST[facility] S_EUA 09/12 7:39 AM EDT [facility] Not Available Not Available 03/02/2025 09:39:59 09/11/19 25 09/11/2024 BMP + ioniz ed calci um, serum or plasm a sodium, serum or plasma text: text: text: text: text: text: text: low: 133mmo l/lhig h: 145mmo l/L Sodiu m 143 133 - 145 mmol/ L ELECS YS ANTI- SARS- COV-2 _[facility] E DIAGN OSTIC S_EUA 09/12 7:39 AM EDT [facility] Not Available Not Available 03/02/2025 09:39:59 09/11/19 25 09/11/2024 BMP + ioniz ed calci um, serum or plasm a chloride, serum or plasma text: text: text: text: text: text: text: low: 98mmol /lhigh : 110mmo l/L Chlor javier 105 98 - 110 mmol/ L ELECS YS ANTI- SARS- COV-2 _[facility] DI[facility] OST[facility] S_EUA 09/12 7:39 AM EDT [facility] Not Available Not Available 03/02/2025 09:39:59 09/11/1909/11/2024 BMP + ioniz ed calci um, serum or plasm a glucose, qn [mass/volume ], serum or plasma text: text: text: text: text: text: text: low: 70mg/d lhigh: 99mg/d L Gluco se 86 70 - 99 mg/dL ELECS YS ANTI- SARS- COV-2 _[facility] S_EUA 09/12 7:39 AM EDT [facility] Not Available Not Available 03/02/2025 09:39:59 09/11/1909/11/2024 BMP + ioniz ed calci um, serum or plasm a calcium, serum or plasma text: text: text: text: text: text: text: low: 8.4mg/ dlhigh : 10.5mg /dL Calci um 9.4 8.4 - 10.5 mg/dL ELECS YS ANTI- SARS- COV-2 _[facility] S_EUA 09/12 7:39 AM EDT [facility] Not Available Not Available 03/02/2025 09:39:59 09/11/1909/11/2024 BMP + ioniz ed calci um, serum or plasm a BUN (blood urea nitrogen), serum or plasma text: text: text: text: text: text: text: low: 6mg/dl high: 22mg/d L high BUN 27 (H) 6 - 22 mg/dL ELECS YS ANTI- SARS- COV-2 _[facility] S_EUA 09/12 7:39 AM EDT [facility] Not Available Not Available 03/02/2025 09:39:59 09/11/1909/11/2024 BMP + ioniz ed calci um, serum or plasm a creatinine, serum or plasma text: text: text: text: text: text: text: low: 0.8mg/ dlhigh : 1.4mg/ dL Creat inine 1.0 0.8 - 1.4 mg/dL ELECS YS ANTI- SARS- COV-2 _[facility] S_EUA 09/12 7:39 AM EDT [facility] Not Available Not Available 03/02/2025 09:39:59 09/11/1909/11/2024 BMP + ioniz ed calci um, serum or plasm a bicarbonate, quant, serum text: text: text: text: text: text: text: low: 20mmol /lhigh : 32mmol /L CO2 24 20 - 32 mmol/ L ELECS YS ANTI- SARS- COV-2 _[facility] S_EUA 09/12 7:39 AM EDT [facility] Not Available Not Available 03/02/2025 09:39:59 09/11/1909/11/2024 BMP + ioniz ed calci um, serum or plasm a glomerular filtration rate/1.73 sq M predicted, qn, creatinine based formula (CKD-epi 2020), serum or plasma or blood 54.4 text: text: text: text: text: text: text: text: >60.0 mL/min /1.73 sq.m. low eGFR 54.4 (L) >60.0 mL/mi n/1.7 3 sq.m. ELECS YS ANTI- SARS- COV-2 _[facility] S_EUA 09/12 7:39 AM EDT [facility] Not Available Not Available 03/02/2025 09:39:59 09/11/1909/11/2024 BMP + ioniz ed calci um, serum or plasm a anion gap 4, serum or plasma (obs) text: text: text: text: text: text: text: low: 3mmol/ lhigh: 15mmol /L Anion Gap 14.0 3.0 - 15.0 mmol/ L ELECS YS ANTI- SARS- COV-2 _[facility] S_EUA 09/12 7:39 AM EDT [facility] Not Available Not Available 03/02/2025 09:39:59 09/11/1909/11/2024 BMP + ioniz ed calci um, serum or plasm a interpretati on and review of laboratory results Abnorm al Not Available Not Available 09:39:59 09/11/1909/10/2024 CBC WBC, auto, blood text: text: text: text: text: text: text: low: 4K/ulh igh: 11K/uL WBC 6.3 4.0 - 11.0 K/uL 09/11 6:02 PM EDT [facility] Not Available Not Available 03/02/2025 09:39:59 09/11/19 25 09/10/2024 CBC RBC count, blood 4.85 text: text: text: text: text: text: text: text: 3.80 - 5.20 M/uL RBC 4.85 3.80 - 5.20 M/uL 09/11 6:02 PM EDT [facility] Not Available Not Available 03/02/2025 09:39:59 09/11/19 25 09/10/2024 CBC hemoglobin (Hb), blood text: text: text: text: text: text: text: low: 11.7g/ dlhigh : 16.1g/ dL HGB 13.5 11.7 - 16.1 g/dL 09/11 6:02 PM EDT [facility] Not Available Not Available 03/02/2025 09:39:59 09/11/1909/10/2024 CBC hematocrit, automated count, blood text: text: text: text: text: text: text: low: 35.1%h igh: 48.3% HCT 43.5 35.1 - 48.3 % 09/11 6:02 PM EDT [facility] Not Available Not Available 03/02/2025 09:39:59 09/11/1909/10/2024 CBC MCV, blood text: text: text: text: text: text: text: low: 80flhi gh: 99fL MCV 90 80 - 99 fL 09/11 6:02 PM EDT [facility] Not Available Not Available 03/02/2025 09:39:59 09/11/1909/10/2024 CBC MCH, qn, automated (obs) text: text: text: text: text: text: text: low: 26pghi gh: 34pg MCH 28 26 - 34 pg 09/11 6:02 PM EDT [facility] Not Available Not Available 03/02/2025 09:39:59 09/11/19 25 09/10/2024 CBC MCHC, qn, automated (obs) text: text: text: text: text: text: text: low: 31g/dl high: 36g/dL MCHC 31 31 - 36 g/dL 09/11 6:02 PM EDT [facility] Not Available Not Available 03/02/2025 09:39:59 09/11/19 25 09/10/2024 CBC erythrocyte distribution width, ratio, automated (obs) text: text: text: text: text: text: text: low: 10%hig h: 15.5% RDW 14.5 10.0 - 15.5 % 09/11 6:02 PM EDT [facility] Not Available Not Available 03/02/2025 09:39:59 09/11/19 25 09/10/2024 CBC platelets, auto, blood text: text: text: text: text: text: text: low: 140K/u lhigh: 440K/u L Plate let 234 140 - 440 K/uL 09/11 6:02 PM EDT [facility] Not Available Not Available 03/02/2025 09:39:59 09/11/19 25 09/10/2024 CBC platelet mean volume, qn, automated, blood (obs) text: text: text: text: text: text: text: low: 9flhig h: 13fL MPV 9.8 9.0 - 13.0 fL 09/11 6:02 PM EDT [facility] Not Available Not Available 03/02/2025 09:39:59 09/11/19 25 09/10/2024 CBC interpretati on and review of laboratory results Normal Not Available Not Available 02/08 09:39:59 09/11/19 25 09/10/2024 BMP + ioniz ed calci um, serum or plasm a potassium, serum or plasma text: text: text: text: text: text: text: text: low: 3.5mmo l/lhig h: 5.5mmo l/L Potas sium 4.2 3.5 - 5.5 mmol/ L ELECS YS ANTI- SARS- COV-2 _[facility] E DIAGN OSTIC S_EUA 09/12 7:39 AM EDT [facility] Not Available Not Available 03/02/2025 09:39:59 09/11/1909/10/2024 BMP + ioniz ed calci um, serum or plasm a sodium, serum or plasma text: text: text: text: text: text: text: text: low: 133mmo l/lhig h: 145mmo l/L Sodiu m 143 133 - 145 mmol/ L ELECS YS ANTI- SARS- COV-2 _[facility] E DIAGN OSTIC S_EUA 09/12 7:39 AM EDT [facility] Not Available Not Available 03/02/2025 09:39:59 09/11/1909/10/2024 BMP + ioniz ed calci um, serum or plasm a chloride, serum or plasma text: text: text: text: text: text: text: text: low: 98mmol /lhigh : 110mmo l/L Chlor javier 105 98 - 110 mmol/ L ELECS YS ANTI- SARS- COV-2 _[facility] E DIAGN OSTIC S_EUA 09/12 7:39 AM EDT [facility] Not Available Not Available 03/02/2025 09:39:59 09/11/1909/10/2024 BMP + ioniz ed calci um, serum or plasm a glucose, qn [mass/volume ], serum or plasma text: text: text: text: text: text: text: text: low: 70mg/d lhigh: 99mg/d L Gluco se 86 70 - 99 mg/dL ELECS YS ANTI- SARS- COV-2 _[facility] DI[facility]N OSTIC S_EUA 09/12 7:39 AM EDT [facility] Not Available Not Available 03/02/2025 09:39:59 09/11/1909/10/2024 BMP + ioniz ed calci um, serum or plasm a calcium, serum or plasma text: text: text: text: text: text: text: text: low: 8.4mg/ dlhigh : 10.5mg /dL Calci um 9.4 8.4 - 10.5 mg/dL ELECS YS ANTI- SARS- COV-2 _[facility]ST[facility] S_EUA 09/12 7:39 AM EDT [facility] Not Available Not Available 03/02/2025 09:39:59 09/11/1909/10/2024 BMP + ioniz ed calci um, serum or plasm a BUN (blood urea nitrogen), serum or plasma text: text: text: text: text: text: text: text: low: 6mg/dl high: 22mg/d L high BUN 27 (H) 6 - 22 mg/dL ELECS YS ANTI- SARS- COV-2 _[facility] S_EUA 09/12 7:39 AM EDT [facility] Not Available Not Available 03/02/2025 09:39:59 09/11/1909/10/2024 BMP + ioniz ed calci um, serum or plasm a creatinine, serum or plasma text: text: text: text: text: text: text: text: low: 0.8mg/ dlhigh : 1.4mg/ dL Creat inine 1.0 0.8 - 1.4 mg/dL ELECS YS ANTI- SARS- COV-2 _[facility] S_EUA 09/12 7:39 AM EDT [facility] Not Available Not Available 03/02/2025 09:39:59 09/11/1909/10/2024 BMP + ioniz ed calci um, serum or plasm a bicarbonate, quant, serum text: text: text: text: text: text: text: text: low: 20mmol /lhigh : 32mmol /L CO2 24 20 - 32 mmol/ L ELECS YS ANTI- SARS- COV-2 _[facility] S_EUA 09/12 7:39 AM EDT [facility] Not Available Not Available 03/02/2025 09:39:59 09/11/1909/10/2024 BMP + ioniz ed calci um, serum or plasm a glomerular filtration rate/1.73 sq M predicted, qn, creatinine based formula (CKD-epi 2020), serum or plasma or blood 54.4 text: text: text: text: text: text: text: text: text: >60.0 mL/min /1.73 sq.m. low eGFR 54.4 (L) >60.0 mL/mi n/1.7 3 sq.m. ELECS YS ANTI- SARS- COV-2 _[facility]ST[facility] S_EUA 09/12 7:39 AM EDT [facility] Not Available Not Available 03/02/2025 09:39:59 09/11/19 25 09/10/2024 BMP + ioniz ed calci um, serum or plasm a anion gap 4, serum or plasma (obs) text: text: text: text: text: text: text: text: low: 3mmol/ lhigh: 15mmol /L Anion Gap 14.0 3.0 - 15.0 mmol/ L ELECS YS ANTI- SARS- COV-2 _[facility] S_EUA 09/12 7:39 AM EDT [facility] Not Available Not Available 03/02/2025 09:39:59 09/11/19 25 09/10/2024 BMP + ioniz ed calci um, serum or plasm a interpretati on and review of laboratory results Abnorm al Not Available Not Available 09:39:59 09/11/19 25 09/10/2024 CBC WBC, auto, blood text: text: text: text: text: text: text: text: low: 4K/ulh igh: 11K/uL WBC 6.3 4.0 - 11.0 K/uL 09/11 6:02 PM EDT [facility] Not Available Not Available 03/02/2025 09:39:59 09/11/19 25 09/10/2024 CBC RBC count, blood 4.85 text: text: text: text: text: text: text: text: text: 3.80 - 5.20 M/uL RBC 4.85 3.80 - 5.20 M/uL 09/11 6:02 PM EDT [facility] Not Available Not Available 03/02/2025 09:39:59 09/11/19 25 09/10/2024 CBC hemoglobin (Hb), blood text: text: text: text: text: text: text: text: low: 11.7g/ dlhigh : 16.1g/ dL HGB 13.5 11.7 - 16.1 g/dL 09/11 6:02 PM EDT [facility] Not Available Not Available 03/02/2025 09:39:59 09/11/19 25 09/10/2024 CBC hematocrit, automated count, blood text: text: text: text: text: text: text: text: low: 35.1%h igh: 48.3% HCT 43.5 35.1 - 48.3 % 09/11 6:02 PM EDT [facility] Not Available Not Available 03/02/2025 09:39:59 09/11/19 25 09/10/2024 CBC MCV, blood text: text: text: text: text: text: text: text: low: 80flhi gh: 99fL MCV 90 80 - 99 fL 09/11 6:02 PM EDT [facility] Not Available Not Available 03/02/2025 09:39:59 09/11/19 25 09/10/2024 CBC MCH, qn, automated (obs) text: text: text: text: text: text: text: text: low: 26pghi gh: 34pg MCH 28 26 - 34 pg 09/11 6:02 PM EDT [facility] Not Available Not Available 03/02/2025 09:39:59 09/11/19 25 09/10/2024 CBC MCHC, qn, automated (obs) text: text: text: text: text: text: text: text: low: 31g/dl high: 36g/dL MCHC 31 31 - 36 g/dL 09/11 6:02 PM EDT [facility] Not Available Not Available 03/02/2025 09:39:59 09/11/19 25 09/10/2024 CBC erythrocyte distribution width, ratio, automated (obs) text: text: text: text: text: text: text: text: low: 10%hig h: 15.5% RDW 14.5 10.0 - 15.5 % 09/11 6:02 PM EDT [facility] Not Available Not Available 03/02/2025 09:39:59 09/11/19 25 09/10/2024 CBC platelets, auto, blood text: text: text: text: text: text: text: text: low: 140K/u lhigh: 440K/u L Plate let 234 140 - 440 K/uL 09/11 6:02 PM EDT [facility] Not Available Not Available 03/02/2025 09:39:59 09/11/1909/10/2024 CBC platelet mean volume, qn, automated, blood (obs) text: text: text: text: text: text: text: text: low: 9flhig h: 13fL MPV 9.8 9.0 - 13.0 fL 09/11 6:02 PM EDT [facility] Not Available Not Available 03/02/2025 09:39:59 09/11/19 25 09/10/2024 CBC interpretati on and review of laboratory results Normal Not Available Not Available 02/08 09:39:59 09/12/19 25 09/12/2024 Basic metab olic 2008 panel with ioniz ed calci um - Serum or Plasm a potassium [moles/volum e] in serum or plasma 4.2 mmol/ L low: 3.5mmo l/Lhig h: 5.5mmo l/L Potas sium 4.2 3.5 - 5.5 mmol/ L ELECS YS ANTI- SARS- COV-2 _[facility] 09/12 7:39 AM EDT [facility] Not Available Not Available 10/19/2024 08:02:41 09/12/1909/12/2024 Basic metab olic 2008 panel with ioniz ed calci um - Serum or Plasm a sodium [moles/volum e] in serum or plasma 143 mmol/ L low: 133mmo l/Lhig h: 145mmo l/L Sodiu m 143 133 - 145 mmol/ L ELECS YS ANTI- SARS- COV-2 _[facility]_EUA 09/12 7:39 AM EDT [facility] Not Available Not Available 10/19/2024 08:02:41 09/12/1909/12/2024 Basic metab olic 2007 panel with ioniz ed calci um - Serum or Plasm a chloride [moles/volum e] in serum or plasma 105 mmol/ L low: 98mmol /Lhigh : 110mmo l/L Chlor javier 105 98 - 110 mmol/ L ELECS YS ANTI- SARS- COV-2 _[facility] S_EUA 09/12 7:39 AM EDT [facility] Not Available Not Available 10/19/2024 08:02:41 09/12/1909/12/2024 Basic metab olic 2007 panel with ioniz ed calci um - Serum or Plasm a glucose [mass/volume ] in serum or plasma 86 mg/dL low: 70mg/d Lhigh: 99mg/d L Gluco se 86 70 - 99 mg/dL ELECS YS ANTI- SARS- COV-2 _[facility]_EUA 09/12 7:39 AM EDT [facility] Not Available Not Available 10/19/2024 08:02:41 09/12/1909/12/2024 Basic metab olic 2007 panel with ioniz ed calci um - Serum or Plasm a calcium [mass/volume ] in serum or plasma 9.4 mg/dL low: 8.4mg/ dLhigh : 10.5mg /dL Calci um 9.4 8.4 - 10.5 mg/dL ELECS YS ANTI- SARS- COV-2 _[facility] S_EUA 09/12 7:39 AM EDT [facility] Not Available Not Available 10/19/2024 08:02:41 09/12/1909/12/2024 Basic metab olic 2007 panel with ioniz ed calci um - Serum or Plasm a urea nitrogen [mass/volume ] in serum or plasma 27 mg/dL low: 6mg/dL high: 22mg/d L high BUN 27 (H) 6 - 22 mg/dL ELECS YS ANTI- SARS- COV-2 _[facility] S_EUA 09/12 7:39 AM EDT [facility] Not Available Not Available 10/19/2024 08:02:41 09/12/1909/12/2024 Basic metab olic 2007 panel with ioniz ed calci um - Serum or Plasm a creatinine [mass/volume ] in serum or plasma 1 mg/dL low: 0.8mg/ dLhigh : 1.4mg/ dL Creat inine 1.0 0.8 - 1.4 mg/dL ELECS YS ANTI- SARS- COV-2 _[facility] S_EUA 09/12 7:39 AM EDT [facility] Not Available Not Available 10/19/2024 08:02:41 09/12/1909/12/2024 Basic metab olic 2007 panel with ioniz ed calci um - Serum or Plasm a bicarbonate [moles/volum e] in serum or plasma 24 mmol/ L low: 20mmol /Lhigh : 32mmol /L CO2 24 20 - 32 mmol/ L ELECS YS ANTI- SARS- COV-2 _[facility] S_EUA 09/12 7:39 AM EDT [facility] Not Available Not Available 10/19/2024 08:02:41 09/12/1909/12/2024 Basic metab olic 2007 panel with ioniz ed calci um - Serum or Plasm a glomerular filtration rate [volume rate/area] in serum, plasma or blood by creatinine-b ased formula (CKD-epi 2020)/1.73 sq M 54.4 text: >60.0 mL/min /1.73 sq.m. low eGFR 54.4 (L) >60.0 mL/mi n/1.7 3 sq.m. ELECS YS ANTI- SARS- COV-2 _[facility] S_EUA 09/12 7:39 AM EDT [facility] Not Available Not Available 10/19/2024 08:02:41 09/12/1909/12/2024 Basic metab olic 2008 panel with ioniz ed calci um - Serum or Plasm a anion gap in serum or plasma by calculated.4 ions 14 mmol/ L low: 3mmol/ Lhigh: 15mmol /L Anion Gap 14.0 3.0 - 15.0 mmol/ L ELECS YS ANTI- SARS- COV-2 _[facility] S_EUA 09/12 7:39 AM EDT [facility] Not Available Not Available 10/19/2024 08:02:41 09/12/1909/12/2024 Basic metab olic 2007 panel with ioniz ed calci um - Serum or Plasm a interpretati on and review of laboratory results Abnorm al Not Available Not Available 08:02:41 09/12/1909/11/2024 CBC panel - Blood by Autom ated count leukocytes [#/volume] in blood by automated count 6.3 K/uL low: 4K/uLh igh: 11K/uL WBC 6.3 4.0 - 11.0 K/uL 09/11 6:02 PM EDT [facility] Not Available Not Available 10/19/2024 08:02:41 09/12/1909/11/2024 CBC panel - Blood by Autom ated count erythrocytes [#/volume] in blood by automated count 4.85 text: 3.80 - 5.20 M/uL RBC 4.85 3.80 - 5.20 M/uL 09/11 6:02 PM EDT [facility] Not Available Not Available 10/19/2024 08:02:41 09/12/1909/11/2024 CBC panel - Blood by Autom ated count hemoglobin [mass/volume ] in blood 13.5 g/dL low: 11.7g/ dLhigh : 16.1g/ dL HGB 13.5 11.7 - 16.1 g/dL 09/11 6:02 PM EDT [facility] Not Available Not Available 10/19/2024 08:02:41 09/12/19 25 09/11/2024 CBC panel - Blood by Autom ated count hematocrit [volume fraction] of blood by automated count 43.5 % low: 35.1%h igh: 48.3% HCT 43.5 35.1 - 48.3 % 09/11 6:02 PM EDT [facility] Not Available Not Available 10/19/2024 08:02:41 09/12/1909/11/2024 CBC panel - Blood by Autom ated count MCV [entitic mean volume] in red blood cells by automated count 90 fL low: 80fLhi gh: 99fL MCV 90 80 - 99 fL 09/11 6:02 PM EDT [facility] Not Available Not Available 10/19/2024 08:02:41 09/12/1909/11/2024 CBC panel - Blood by Autom ated count MCH [entitic mass] by automated count 28 pg low: 26pghi gh: 34pg MCH 28 26 - 34 pg 09/11 6:02 PM EDT [facility] Not Available Not Available 10/19/2024 08:02:41 09/12/1909/11/2024 CBC panel - Blood by Autom ated count MCHC [entitic mass/volume] in red blood cells by automated count 31 g/dL low: 31g/dL high: 36g/dL MCHC 31 31 - 36 g/dL 09/11 6:02 PM EDT [facility] Not Available Not Available 10/19/2024 08:02:41 09/12/1909/11/2024 CBC panel - Blood by Autom ated count erythrocyte [distwidth] in red blood cells by automated count 14.5 % low: 10%hig h: 15.5% RDW 14.5 10.0 - 15.5 % 09/11 6:02 PM EDT [facility] Not Available Not Available 10/19/2024 08:02:41 09/12/1909/11/2024 CBC panel - Blood by Autom ated count platelets [#/volume] in blood by automated count 234 K/uL low: 140K/u Lhigh: 440K/u L Plate let 234 140 - 440 K/uL 09/11 6:02 PM EDT [facility] Not Available Not Available 10/19/2024 08:02:41 09/12/1909/11/2024 CBC panel - Blood by Autom ated count platelet [entitic mean volume] in blood by automated count 9.8 fL low: 9fLhig h: 13fL MPV 9.8 9.0 - 13.0 fL 09/11 6:02 PM EDT [facility] Not Available Not Available 10/19/2024 08:02:41 09/12/1909/11/2024 CBC panel - Blood by Autom ated count interpretati on and review of laboratory results Normal Not Available Not Available 10/07 08:02:41 09/12/1909/12/2024 Basic metab olic 2007 panel with ioniz ed calci um - Serum or Plasm a potassium [moles/volum e] in serum or plasma text: low: 3.5mmo l/lhig h: 5.5mmo l/L Potas sium 4.2 3.5 - 5.5 mmol/ L ELECS YS ANTI- SARS- COV-2 _[facility] S_EUA 09/12 7:39 AM EDT [facility] Not Available Not Available 01/26/2025 09:27:11 09/12/1909/12/2024 Basic metab olic 2008 panel with ioniz ed calci um - Serum or Plasm a sodium [moles/volum e] in serum or plasma text: low: 133mmo l/lhig h: 145mmo l/L Sodiu m 143 133 - 145 mmol/ L ELECS YS ANTI- SARS- COV-2 _[facility] S_EUA 09/12 7:39 AM EDT [facility] Not Available Not Available 01/26/2025 09:27:11 09/12/1909/12/2024 Basic metab olic 2008 panel with ioniz ed calci um - Serum or Plasm a chloride [moles/volum e] in serum or plasma text: low: 98mmol /lhigh : 110mmo l/L Chlor javier 105 98 - 110 mmol/ L ELECS YS ANTI- SARS- COV-2 _[facility] S_EUA 09/12 7:39 AM EDT [facility] Not Available Not Available 01/26/2025 09:27:11 09/12/1909/12/2024 Basic metab olic 2007 panel with ioniz ed calci um - Serum or Plasm a glucose [mass/volume ] in serum or plasma text: low: 70mg/d lhigh: 99mg/d L Gluco se 86 70 - 99 mg/dL ELECS YS ANTI- SARS- COV-2 _[facility] S_EUA 09/12 7:39 AM EDT [facility] Not Available Not Available 01/26/2025 09:27:11 09/12/1909/12/2024 Basic metab olic 2007 panel with ioniz ed calci um - Serum or Plasm a calcium [mass/volume ] in serum or plasma text: low: 8.4mg/ dlhigh : 10.5mg /dL Calci um 9.4 8.4 - 10.5 mg/dL ELECS YS ANTI- SARS- COV-2 _[facility] S_EUA 09/12 7:39 AM EDT [facility] Not Available Not Available 01/26/2025 09:27:11 09/12/1909/12/2024 Basic metab olic 2008 panel with ioniz ed calci um - Serum or Plasm a urea nitrogen [mass/volume ] in serum or plasma text: low: 6mg/dl high: 22mg/d L high BUN 27 (H) 6 - 22 mg/dL ELECS YS ANTI- SARS- COV-2 _[facility] S_EUA 09/12 7:39 AM EDT [facility] Not Available Not Available 01/26/2025 09:27:11 09/12/1909/12/2024 Basic metab olic 2008 panel with ioniz ed calci um - Serum or Plasm a creatinine [mass/volume ] in serum or plasma text: low: 0.8mg/ dlhigh : 1.4mg/ dL Creat inine 1.0 0.8 - 1.4 mg/dL ELECS YS ANTI- SARS- COV-2 _[facility]_EUA 09/12 7:39 AM EDT [facility] Not Available Not Available 01/26/2025 09:27:11 09/12/1909/12/2024 Basic metab olic 2008 panel with ioniz ed calci um - Serum or Plasm a bicarbonate [moles/volum e] in serum or plasma text: low: 20mmol /lhigh : 32mmol /L CO2 24 20 - 32 mmol/ L ELECS YS ANTI- SARS- COV-2 _[facility] S_EUA 09/12 7:39 AM EDT [facility] Not Available Not Available 01/26/2025 09:27:11 09/12/1909/12/2024 Basic metab olic 2008 panel with ioniz ed calci um - Serum or Plasm a glomerular filtration rate [volume rate/area] in serum, plasma or blood by creatinine-b ased formula (CKD-epi 2020)/1.73 sq M 54.4 text: text: >60.0 mL/min /1.73 sq.m. low eGFR 54.4 (L) >60.0 mL/mi n/1.7 3 sq.m. ELECS YS ANTI- SARS- COV-2 _[facility] S_EUA 09/12 7:39 AM EDT [facility] Not Available Not Available 01/26/2025 09:27:11 09/12/1909/12/2024 Basic metab olic 2008 panel with ioniz ed calci um - Serum or Plasm a anion gap in serum or plasma by calculated.4 ions text: low: 3mmol/ lhigh: 15mmol /L Anion Gap 14.0 3.0 - 15.0 mmol/ L ELECS YS ANTI- SARS- COV-2 _[facility]ST[facility] S_EUA 09/12 7:39 AM EDT [facility] Not Available Not Available 01/26/2025 09:27:11 09/12/19 25 09/12/2024 Basic metab olic 2008 panel with ioniz ed calci um - Serum or Plasm a interpretati on and review of laboratory results Abnorm al Not Available Not Available 09:27:11 04/0509/11/2024 CBC panel - Blood by Autom ated count leukocytes [#/volume] in blood by automated count text: low: 4K/ulh igh: 11K/uL WBC 6.3 4.0 - 11.0 K/uL 09/11 6:02 PM EDT [facility] Not Available Not Available 01/26/2025 09:27:11 09/12/1909/11/2024 CBC panel - Blood by Autom ated count erythrocytes [#/volume] in blood by automated count 4.85 text: text: 3.80 - 5.20 M/uL RBC 4.85 3.80 - 5.20 M/uL 09/11 6:02 PM EDT [facility] Not Available Not Available 01/26/2025 09:27:11 09/12/1909/11/2024 CBC panel - Blood by Autom ated count hemoglobin [mass/volume ] in blood text: low: 11.7g/ dlhigh : 16.1g/ dL HGB 13.5 11.7 - 16.1 g/dL 09/11 6:02 PM EDT [facility] Not Available Not Available 01/26/2025 09:27:11 09/12/1909/11/2024 CBC panel - Blood by Autom ated count hematocrit [volume fraction] of blood by automated count text: low: 35.1%h igh: 48.3% HCT 43.5 35.1 - 48.3 % 09/11 6:02 PM EDT [facility] Not Available Not Available 01/26/2025 09:27:11 09/12/1909/11/2024 CBC panel - Blood by Autom ated count MCV [entitic mean volume] in red blood cells by automated count text: low: 80flhi gh: 99fL MCV 90 80 - 99 fL 09/11 6:02 PM EDT [facility] Not Available Not Available 01/26/2025 09:27:11 09/12/1909/11/2024 CBC panel - Blood by Autom ated count MCH [entitic mass] by automated count text: low: 26pghi gh: 34pg MCH 28 26 - 34 pg 09/11 6:02 PM EDT [facility] Not Available Not Available 01/26/2025 09:27:11 09/12/1909/11/2024 CBC panel - Blood by Autom ated count MCHC [entitic mass/volume] in red blood cells by automated count text: low: 31g/dl high: 36g/dL MCHC 31 31 - 36 g/dL 09/11 6:02 PM EDT [facility] Not Available Not Available 01/26/2025 09:27:11 09/12/1909/11/2024 CBC panel - Blood by Autom ated count erythrocyte [distwidth] in red blood cells by automated count text: low: 10%hig h: 15.5% RDW 14.5 10.0 - 15.5 % 09/11 6:02 PM EDT [facility] Not Available Not Available 01/26/2025 09:27:11 09/12/1909/11/2024 CBC panel - Blood by Autom ated count platelets [#/volume] in blood by automated count text: low: 140K/u lhigh: 440K/u L Plate let 234 140 - 440 K/uL 09/11 6:02 PM EDT [facility] Not Available Not Available 01/26/2025 09:27:11 09/12/1909/11/2024 CBC panel - Blood by Autom ated count platelet [entitic mean volume] in blood by automated count text: low: 9flhig h: 13fL MPV 9.8 9.0 - 13.0 fL 09/11 6:02 PM EDT [facility] Not Available Not Available 01/26/2025 09:27:11 09/12/19 25 09/11/2024 CBC panel - Blood by Autom ated count interpretati on and review of laboratory results Normal Not Available Not Available 01/08 09:27:11 09/12/19 25 09/11/2024 Basic metab olic 2008 panel with ioniz ed calci um - Serum or Plasm a potassium [moles/volum e] in serum or plasma text: text: low: 3.5mmo l/lhig h: 5.5mmo l/L Potas sium 4.2 3.5 - 5.5 mmol/ L ELECS YS ANTI- SARS- COV-2 _[facility]ST[facility] S_EUA 09/12 7:39 AM EDT [facility] Not Available Not Available 01/26/2025 09:27:11 09/12/1909/11/2024 Basic metab olic 2008 panel with ioniz ed calci um - Serum or Plasm a sodium [moles/volum e] in serum or plasma text: text: low: 133mmo l/lhig h: 145mmo l/L Sodiu m 143 133 - 145 mmol/ L ELECS YS ANTI- SARS- COV-2 _[facility] DIAGN OSTIC S_EUA 09/12 7:39 AM EDT [facility] Not Available Not Available 01/26/2025 09:27:11 09/12/1909/11/2024 Basic metab olic 2008 panel with ioniz ed calci um - Serum or Plasm a chloride [moles/volum e] in serum or plasma text: text: low: 98mmol /lhigh : 110mmo l/L Chlor javier 105 98 - 110 mmol/ L ELECS YS ANTI- SARS- COV-2 _[facility] DIAGN OSTIC S_EUA 09/12 7:39 AM EDT [facility] Not Available Not Available 01/26/2025 09:27:11 09/12/1909/11/2024 Basic metab olic 2008 panel with ioniz ed calci um - Serum or Plasm a glucose [mass/volume ] in serum or plasma text: text: low: 70mg/d lhigh: 99mg/d L Gluco se 86 70 - 99 mg/dL ELECS YS ANTI- SARS- COV-2 _[facility] DIAGN OSTIC S_EUA 09/12 7:39 AM EDT [facility] Not Available Not Available 01/26/2025 09:27:11 09/12/1909/11/2024 Basic metab olic 2008 panel with ioniz ed calci um - Serum or Plasm a calcium [mass/volume ] in serum or plasma text: text: low: 8.4mg/ dlhigh : 10.5mg /dL Calci um 9.4 8.4 - 10.5 mg/dL ELECS YS ANTI- SARS- COV-2 _[facility] DIAGN OSTIC S_EUA 09/12 7:39 AM EDT [facility] Not Available Not Available 01/26/2025 09:27:11 09/12/1909/11/2024 Basic metab olic 2007 panel with ioniz ed calci um - Serum or Plasm a urea nitrogen [mass/volume ] in serum or plasma text: text: low: 6mg/dl high: 22mg/d L high BUN 27 (H) 6 - 22 mg/dL ELECS YS ANTI- SARS- COV-2 _[facility] DIAGN OSTIC S_EUA 09/12 7:39 AM EDT [facility] Not Available Not Available 01/26/2025 09:27:11 09/12/1909/11/2024 Basic metab olic 2008 panel with ioniz ed calci um - Serum or Plasm a creatinine [mass/volume ] in serum or plasma text: text: low: 0.8mg/ dlhigh : 1.4mg/ dL Creat inine 1.0 0.8 - 1.4 mg/dL ELECS YS ANTI- SARS- COV-2 _[facility] DIAGN OSTIC S_EUA 09/12 7:39 AM EDT [facility] Not Available Not Available 01/26/2025 09:27:11 09/12/1909/11/2024 Basic metab olic 2008 panel with ioniz ed calci um - Serum or Plasm a bicarbonate [moles/volum e] in serum or plasma text: text: low: 20mmol /lhigh : 32mmol /L CO2 24 20 - 32 mmol/ L ELECS YS ANTI- SARS- COV-2 _[facility] DIAGN OSTIC S_EUA 09/12 7:39 AM EDT [facility] Not Available Not Available 01/26/2025 09:27:11 09/12/19 25 09/11/2024 Basic metab olic 2008 panel with ioniz ed calci um - Serum or Plasm a glomerular filtration rate [volume rate/area] in serum, plasma or blood by creatinine-b ased formula (CKD-epi 2020)/1.73 sq M 54.4 text: text: text: >60.0 mL/min /1.73 sq.m. low eGFR 54.4 (L) >60.0 mL/mi n/1.7 3 sq.m. ELECS YS ANTI- SARS- COV-2 _[facility] E DIAGN OSTIC S_EUA 09/12 7:39 AM EDT [facility] Not Available Not Available 01/26/2025 09:27:11 09/12/1909/11/2024 Basic metab olic 2008 panel with ioniz ed calci um - Serum or Plasm a anion gap in serum or plasma by calculated.4 ions text: text: low: 3mmol/ lhigh: 15mmol /L Anion Gap 14.0 3.0 - 15.0 mmol/ L ELECS YS ANTI- SARS- COV-2 _[facility] E DIAGN OSTIC S_EUA 09/12 7:39 AM EDT [facility] Not Available Not Available 01/26/2025 09:27:11 09/12/1909/11/2024 Basic metab olic 2008 panel with ioniz ed calci um - Serum or Plasm a interpretati on and review of laboratory results Abnorm al Not Available Not Available 09:27:11 09/12/1909/11/2024 CBC panel - Blood by Autom ated count leukocytes [#/volume] in blood by automated count text: text: low: 4K/ulh igh: 11K/uL WBC 6.3 4.0 - 11.0 K/uL 09/11 6:02 PM EDT [facility] Not Available Not Available 01/26/2025 09:27:11 09/12/1909/11/2024 CBC panel - Blood by Autom ated count erythrocytes [#/volume] in blood by automated count 4.85 text: text: text: 3.80 - 5.20 M/uL RBC 4.85 3.80 - 5.20 M/uL 09/11 6:02 PM EDT [facility] Not Available Not Available 01/26/2025 09:27:11 09/12/19 25 09/11/2024 CBC panel - Blood by Autom ated count hemoglobin [mass/volume ] in blood text: text: low: 11.7g/ dlhigh : 16.1g/ dL HGB 13.5 11.7 - 16.1 g/dL 09/11 6:02 PM EDT [facility] Not Available Not Available 01/26/2025 09:27:11 09/12/19 25 09/11/2024 CBC panel - Blood by Autom ated count hematocrit [volume fraction] of blood by automated count text: text: low: 35.1%h igh: 48.3% HCT 43.5 35.1 - 48.3 % 09/11 6:02 PM EDT [facility] Not Available Not Available 01/26/2025 09:27:11 09/12/19 25 09/11/2024 CBC panel - Blood by Autom ated count MCV [entitic mean volume] in red blood cells by automated count text: text: low: 80flhi gh: 99fL MCV 90 80 - 99 fL 09/11 6:02 PM EDT [facility] Not Available Not Available 01/26/2025 09:27:11 09/12/19 25 09/11/2024 CBC panel - Blood by Autom ated count MCH [entitic mass] by automated count text: text: low: 26pghi gh: 34pg MCH 28 26 - 34 pg 09/11 6:02 PM EDT [facility] Not Available Not Available 01/26/2025 09:27:11 09/12/19 25 09/11/2024 CBC panel - Blood by Autom ated count MCHC [entitic mass/volume] in red blood cells by automated count text: text: low: 31g/dl high: 36g/dL MCHC 31 31 - 36 g/dL 09/11 6:02 PM EDT [facility] Not Available Not Available 01/26/2025 09:27:11 09/12/19 25 09/11/2024 CBC panel - Blood by Autom ated count erythrocyte [distwidth] in red blood cells by automated count text: text: low: 10%hig h: 15.5% RDW 14.5 10.0 - 15.5 % 09/11 6:02 PM EDT [facility] Not Available Not Available 01/26/2025 09:27:11 09/12/1909/11/2024 CBC panel - Blood by Autom ated count platelets [#/volume] in blood by automated count text: text: low: 140K/u lhigh: 440K/u L Plate let 234 140 - 440 K/uL 09/11 6:02 PM EDT [facility] Not Available Not Available 01/26/2025 09:27:11 09/12/1909/11/2024 CBC panel - Blood by Autom ated count platelet [entitic mean volume] in blood by automated count text: text: low: 9flhig h: 13fL MPV 9.8 9.0 - 13.0 fL 09/11 6:02 PM EDT [facility] Not Available Not Available 01/26/2025 09:27:11 09/12/1909/11/2024 CBC panel - Blood by Autom ated count interpretati on and review of laboratory results Normal Not Available Not Available 01/08 09:27:11 10/12/1910/12/2024 Olya ine [Mass /volu me] in Blood vitamin B1 text: text: text: 8-30 Vitam in suppl ement ation withi n 24 hours prior to blood draw may affec t the accur acy of the resul ts. This test was devel oped and its julio tical perfo rmanc e dejon cteri stics have been deter mined by [facility] [place]. It has not been clear ed or appro khurram by the U.[place]. Food and Drug Admin istra tion. This assay has been valid ated pursu ant to the CLIA regul ation s and is used for clini shelly purpo ses. Test Perfo rmed by Jeremy Smith, [facility], [id number] [place], [place] Sally Spears M.D., Ph.D. , [facility] atori es [phone], CLIA [id number] Not Available Not Available 02/03/2025 11:10:08 10/12/19 25 10/12/2024 Immun ofixa tion for Serum or Plasm a interpretati on: IgG kappa monocl onal band abnormal prese nt. Test Perfo rmed by [facility], [facility], [id number] [facility] [place], [place] Sally Spears M.D., Ph.D. , [facility] , CLIA [id number] Not Available Not Available 02/03/2025 11:10:08 10/12/19 25 10/12/2024 Olya ine [Mass /volu me] in Blood vitamin B1 text: text: text: text: text: 8-30 Vitam in suppl ement ation withi n 24 hours prior to blood draw may affec t the accur acy of the resul ts. This test was devel oped and its julio tical perfo rmanc e dejon cteri stics have been deter mined by [facility] [place]. It has not been clear ed or appro khurram by the U.S. Food and Drug Admin istra tion. This assay has been valid ated pursu ant to the CLIA regul ation s and is used for clini shelly purpo ses. Test Perfo rmed by Jeremy Smith, [facility] [facility], [id number] [facility] [place], [place] Sally Spears M.D., Ph.D. , [facility] es [phone], CLIA [id number] Not Available Not Available 02/07/2025 13:45:58 10/12/19 25 10/12/2024 Immun ofixa tion for Serum or Plasm a interpretati on: IgG kappa monocl onal band abnormal prese nt. Test Perfo rmed by Jeremy Smith [facility], [id number] [employer] [place], [place] Sally Spears M.D., Ph.D. , [facility] , CLIA [id number] Not Available Not Available 02/07/2025 13:45:58 10/12/19 25 10/12/2024 vitam in B1 (thia mine) , blood vitamin B1 text: text: text: text: text: text: text: 8-30 Vitam in suppl ement ation withi n 24 hours prior to blood draw may affec t the accur acy of the resul ts. This test was devel oped and its julio tical perfo rmanc e dejon cteri stics have been deter mined by [facility] [place] [facility]. It has not been clear ed or appro khurram by the U.S. Food and Drug Admin istra tion. This assay has been valid ated pursu ant to the CLIA regul ation s and is used for clini shelly purpo ses. Test Perfo rmed by Jeremy Smith [facility], [id number] [employer] , [facility], [place] Sally Spears M.D., Ph.D. , [facility] [phone], CLIA [id number] Not Available Not Available 03/02/2025 09:39:59 10/12/19 25 10/12/2024 immun ofixa tion, serum interpretati on: IgG kappa monocl onal band abnormal prese nt. Test Perfo rmed by Jeremy Smith [facility], [id number] [employer] , [facility], [place] Sally Spears M.D., Ph.D. , [facility] , CLIA [id number] Not Available Not Available 03/02/2025 09:39:59 10/13/19 25 10/12/2024 vitam in B12, serum vitamin B12 442 pg/mL text: 211-91 1 Not Available Not Available 03/02/2025 09:40:00 10/13/19 25 10/12/2024 TSH, serum , refle x free T4 thyroid stimulating hormone 2.48 uIU/m L text: 0.55-4 .78 Not Available Not Available 03/02/2025 09:39:59 10/13/19 25 10/12/2024 Olya ine [Mass /volu me] in Blood vitamin B1 text: 8-30 Vitam in suppl ement ation withi n 24 hours prior to blood draw may affec t the accur acy of the resul ts. This test was devel oped and its julio tical perfo rmanc e dejon cteri stics have been deter mined by [facility] [place] [facility]. It has not been clear ed or appro khurram by the U.S. Food and Drug Admin istra tion. This assay has been valid ated pursu ant to the CLIA regul ation s and is used for clini shelly purpo ses. Test Perfo rmed by Jeremy Smith [facility], [id number] [employer] , [place], [place] Sally Spears M.D., Ph.D. , [facility] , CLIA [id number] Not Available Not Available 01/26/2025 09:27:11 10/13/1910/12/2024 Immun ofixa tion for Serum or Plasm a interpretati on: IgG kappa monocl onal band abnormal prese nt. Test Perfo rmed by Jeremy Smith [facility], [id number] [employer] , [place], [place] Sally Spears M.D., Ph.D. , [facility] , CLIA [id number] Not Available Not Available 01/26/2025 09:27:11 12/02/19 25 12/01/2024 immun oglob ulins iga+i gg+ig m, quant itati ve, serum IgA, quantitative , serum 86 mg/dL low: 85high : 499 Not Available Not Available 05/08/2025 09:01:34 12/02/19 25 12/01/2024 immun oglob ulins iga+i gg+ig m, quant itati ve, serum IgG, quantitative , serum 617 mg/dL low: 610hig h: 1616 Not Available Not Available 05/08/2025 09:01:34 12/02/1912/01/2024 immun oglob ulins iga+i gg+ig m, quant itati ve, serum IgM, quantitative , serum 73 mg/dL low: 35high : 242 Not Available Not Available 05/08/2025 09:01:34 12/02/1902/18/2025 immun oglob ulins iga+i gg+ig m, quant itati ve, serum IgA, quantitative , serum 105 mg/dL low: 85high : 499 Not Available Not Available 05/08/2025 09:01:34 12/02/1902/18/2025 immun oglob ulins iga+i gg+ig m, quant itati ve, serum IgG, quantitative , serum 646 mg/dL low: 610hig h: 1616 Not Available Not Available 05/08/2025 09:01:34 12/02/1902/18/2025 immun oglob ulins iga+i gg+ig m, quant itati ve, serum IgM, quantitative , serum 69 mg/dL low: 35high : 242 Not Available Not Available 05/08/2025 09:01:34 12/02/1912/01/2024 kappa light chain s free/ lambd a light chain s free, ratio , serum immunoglobul in light chains, kappa, free, quantitative , serum 56.64 mg/L low: 3.3hig h: 19.4 high Not Available Not Available 05/08/2025 09:01:33 12/02/19 25 12/01/2024 kappa light chain s free/ lambd a light chain s free, ratio , serum lambda light chains, free, serum or plasma 15.04 mg/L low: 5.71hi gh: 26.3 Not Available Not Available 05/08/2025 09:01:12/02/1912/01/2024 kappa light chain s free/ lambd a light chain s free, ratio , serum kappa light chains/lambd a light chains, ratio, serum (obs) 3.77 % low: 0.26hi gh: 1.65 high Not Available Not Available 05/08/2025 09:01:33 12/02/1902/18/2025 kappa light chain s free/ lambd a light chain s free, ratio , serum immunoglobul in light chains, kappa, free, quantitative , serum 52.01 mg/L low: 3.3hig h: 19.4 high Not Available Not Available 05/08/2025 09:01:12/02/1902/18/2025 kappa light chain s free/ lambd a light chain s free, ratio , serum lambda light chains, free, serum or plasma 16.94 mg/L low: 5.71hi gh: 26.3 Not Available Not Available 05/08/2025 09:01:12/02/1902/18/2025 kappa light chain s free/ lambd a light chain s free, ratio , serum kappa light chains/lambd a light chains, ratio, serum (obs) 3.07 % low: 0.26hi gh: 1.65 high Not Available Not Available 05/08/2025 09:01:12/02/1912/01/2024 CMP, serum or plasm a sodium, serum or plasma 144 mmol/ l low: 136hig h: 145 Not Available Not Available 05/08/2025 09:01:12/02/1912/01/2024 CMP, serum or plasm a potassium, serum or plasma 4.5 mmol/ l low: 3.5hig h: 5.1 Not Available Not Available 05/08/2025 09:01:12/02/1912/01/2024 CMP, serum or plasm a CO2 28 mmol/ l low: 20high : 31 Not Available Not Available 05/08/2025 09:01:12/02/1912/01/2024 CMP, serum or plasm a chloride, serum or plasma 105 mmol/ l low: 98high : 107 Not Available Not Available 05/08/2025 09:01:12/02/1912/01/2024 CMP, serum or plasm a BUN (blood urea nitrogen), serum or plasma 37 mg/dL low: 9high: 23 high Not Available Not Available 05/08/2025 09:01:12/02/1912/01/2024 CMP, serum or plasm a creatinine, serum or plasma 1.05 mg/dL low: 0.55hi gh: 1.3 Not Available Not Available 05/08/2025 09:01:12/02/1912/01/2024 CMP, serum or plasm a GFR estimate 53.76 % Not Available Not A vailable 05/08/2025 09:01:12/02/1912/01/2024 CMP, serum or plasm a glucose, qn [mass/volume ], serum or plasma 89 mg/dL low: 74high : 106 Not Available Not Available 05/08/2025 09:01:12/02/1912/01/2024 CMP, serum or plasm a calcium, serum or plasma 9.6 mg/dL low: 8.7hig h: 10.4 Not Available Not Available 05/08/2025 09:01:12/02/1912/01/2024 CMP, serum or plasm a albumin, serum or plasma 3.5 g/dL low: 3.4hig h: 5 Not Available Not Available 05/08/2025 09:01:12/02/1912/01/2024 CMP, serum or plasm a bilirubin, total, serum or plasma 0.6 mg/dL low: 0.3hig h: 1.2 Not Available Not Available 05/08/2025 09:01:12/02/1912/01/2024 CMP, serum or plasm a protein, total, serum 5.8 g/dL low: 5.7hig h: 8.2 Not Available Not Available 05/08/2025 09:01:12/02/1912/01/2024 CMP, serum or plasm a AST/SGOT (aspartate aminotransfe rase), serum or plasma 21 [IU]/ L low: 0high: 34 Not Available Not Available 05/08/2025 09:01:12/02/1912/01/2024 CMP, serum or plasm a ALT (alanine aminotransfe rase), serum or plasma 19 [IU]/ L low: 10high : 49 Not Available Not Available 05/08/2025 09:01:12/02/1912/01/2024 CMP, serum or plasm a alkaline phosphatase, serum or plasma 89 [IU]/ L low: 46high : 160 Not Available Not Available 05/08/2025 09:01:12/02/1902/18/2025 CMP, serum or plasm a sodium, serum or plasma 143 mmol/ l low: 136hig h: 145 Not Available Not Available 05/08/2025 09:01:12/02/1902/18/2025 CMP, serum or plasm a potassium, serum or plasma 4.6 mmol/ l low: 3.5hig h: 5.1 Not Available Not Available 05/08/2025 09:01:12/02/1902/18/2025 CMP, serum or plasm a CO2 27 mmol/ l low: 20high : 31 Not Available Not Available 05/08/2025 09:01:12/02/1902/18/2025 CMP, serum or plasm a chloride, serum or plasma 107 mmol/ l low: 98high : 107 Not Available Not Available 05/08/2025 09:01:12/02/1902/18/2025 CMP, serum or plasm a BUN (blood urea nitrogen), serum or plasma 28 mg/dL low: 9high: 23 high Not Available Not Available 05/08/2025 09:01:12/02/1902/18/2025 CMP, serum or plasm a creatinine, serum or plasma 0.99 mg/dL low: 0.55hi gh: 1.3 Not Available Not Available 05/08/2025 09:01:12/02/1902/18/2025 CMP, serum or plasm a GFR estimate 57.61 % Not Available Not A vailable 05/08/2025 09:01:12/02/1902/18/2025 CMP, serum or plasm a glucose, qn [mass/volume ], serum or plasma 89 mg/dL low: 74high : 106 Not Available Not Available 05/08/2025 09:01:33 12/02/1902/18/2025 CMP, serum or plasm a calcium, serum or plasma 9.8 mg/dL low: 8.7hig h: 10.4 Not Available Not Available 05/08/2025 09:01:33 12/02/1902/18/2025 CMP, serum or plasm a albumin, serum or plasma 3.5 g/dL low: 3.4hig h: 5 Not Available Not Available 05/08/2025 09:01:33 12/02/1902/18/2025 CMP, serum or plasm a bilirubin, total, serum or plasma 0.7 mg/dL low: 0.3hig h: 1.2 Not Available Not Available 05/08/2025 09:01:33 12/02/1902/18/2025 CMP, serum or plasm a protein, total, serum 5.8 g/dL low: 5.7hig h: 8.2 Not Available Not Available 05/08/2025 09:01:33 12/02/1902/18/2025 CMP, serum or plasm a AST/SGOT (aspartate aminotransfe rase), serum or plasma 21 [IU]/ L low: 0high: 34 Not Available Not Available 05/08/2025 09:01:33 12/02/1902/18/2025 CMP, serum or plasm a ALT (alanine aminotransfe rase), serum or plasma 24 [IU]/ L low: 10high : 49 Not Available Not Available 05/08/2025 09:01:33 12/02/1902/18/2025 CMP, serum or plasm a alkaline phosphatase, serum or plasma 83 [IU]/ L low: 46high : 160 Not Available Not Available 05/08/2025 09:01:33 01/25/2001/24/2025 CBC W Auto Diffe janet al panel - Blood leukocytes [#/volume] in blood by automated count 6.1 K/uL low: 4K/uLh igh: 11K/uL Not Available Not Available 01/26/2025 09:27:13 01/25/2031 0101/24/2025 CBC W Auto Diffe renti al panel - Blood erythrocytes [#/volume] in blood by automated count 4.69 text: 3.80 - 5.20 M/uL Not Available Not Available 01/26/2025 09:27:13 01/25/20 25 01/24/2025 CBC W Auto Diffe renti al panel - Blood hemoglobin [mass/volume ] in blood 13 g/dL low: 11.7g/ dLhigh : 16.1g/ dL Not Available Not Available 01/26/2025 09:27:13 01/25/2001/24/2025 CBC W Auto Diffe renti al panel - Blood hematocrit [volume fraction] of blood by automated count 42.3 % low: 35.1%h igh: 48.3% Not Available Not Available 01/26/2025 09:27:13 01/25/2001/24/2025 CBC W Auto Diffe renti al panel - Blood MCV [entitic mean volume] in red blood cells by automated count 90 fL low: 80fLhi gh: 99fL Not Available Not Available 01/26/2025 09:27:13 01/25/20 25 01/24/2025 CBC W Auto Diffe renti al panel - Blood MCH [entitic mass] by automated count 28 pg low: 26pghi gh: 34pg Not Available Not Available 01/26/2025 09:27:13 01/25/20 25 01/24/2025 CBC W Auto Diffe renti al panel - Blood MCHC [entitic mass/volume] in red blood cells by automated count 31 g/dL low: 31g/dL high: 36g/dL Not Available Not Available 01/26/2025 09:27:13 01/25/20 25 01/24/2025 CBC W Auto Diffe renti al panel - Blood erythrocyte [distwidth] in red blood cells by automated count 14 % low: 10%hig h: 15.5% Not Available Not Available 01/26/2025 09:27:13 01/25/20 25 01/24/2025 CBC W Auto Diffe renti al panel - Blood platelets [#/volume] in blood by automated count 214 K/uL low: 140K/u Lhigh: 440K/u L Not Available Not Available 01/26/2025 09:27:13 01/25/20 25 01/24/2025 CBC W Auto Diffe renti al panel - Blood platelet [entitic mean volume] in blood by automated count 9.9 fL low: 9fLhig h: 13fL Not Available Not Available 01/26/2025 09:27:13 01/25/20 25 01/24/2025 CBC W Auto Diffe renti al panel - Blood neutrophils/ leukocytes in blood by automated count 63 % low: 40%hig h: 75% Not Available Not Available 01/26/2025 09:27:13 01/25/20 25 01/24/2025 CBC W Auto Diffe renti al panel - Blood lymphocytes/ leukocytes in blood by automated count 26 % low: 20%hig h: 45% Not Available Not Available 01/26/2025 09:27:13 01/25/20 25 01/24/2025 CBC W Auto Diffe renti al panel - Blood monocytes/le ukocytes in blood by automated count 9 % low: 3%high : 12% Not Available Not Available 01/26/2025 09:27:13 01/25/20 25 01/24/2025 CBC W Auto Diffe renti al panel - Blood eosinophils/ leukocytes in blood by automated count 2 % low: 0%high : 6% Not Available Not Available 01/26/2025 09:27:13 01/25/20 25 01/24/2025 CBC W Auto Diffe renti al panel - Blood basophils/le ukocytes in blood by automated count 0 % low: 0%high : 2% Not Available Not Available 01/26/2025 09:27:13 01/25/20 25 01/24/2025 CBC W Auto Diffe renti al panel - Blood neutrophils [#/volume] in blood by automated count 3.9 K/uL low: 1.8K/u Lhigh: 7.7K/u L Not Available Not Available 01/26/2025 09:27:13 01/25/20 25 01/24/2025 CBC W Auto Diffe renti al panel - Blood lymphocytes [#/volume] in blood by automated count 1.6 K/uL low: 1K/uLh igh: 4.8K/u L Not Available Not Available 01/26/2025 09:27:13 01/25/20 25 01/24/2025 CBC W Auto Diffe renti al panel - Blood monocytes [#/volume] in blood by automated count 0.6 K/uL low: 0.1K/u Lhigh: 1K/uL Not Available Not Available 01/26/2025 09:27:13 01/25/20 25 01/24/2025 CBC W Auto Diffe renti al panel - Blood eosinophils [#/volume] in blood by automated count 0.1 K/uL low: 0K/uLh igh: 0.5K/u L Not Available Not Available 01/26/2025 09:27:13 01/25/20 25 01/24/2025 CBC W Auto Diffe renti al panel - Blood basophils [#/volume] in blood by automated count 0 K/uL low: 0K/uLh igh: 0.2K/u L Not Available Not Available 01/26/2025 09:27:13 01/25/20 25 01/24/2025 CBC W Auto Diffe renti al panel - Blood interpretati on and review of laboratory results Normal Not Available Not Available 01/08 09:27:13 01/25/20 25 01/25/2025 Renal funct ion 1999 panel - Serum or Plasm a sodium [moles/volum e] in serum or plasma 143 mmol/ L low: 133mmo l/Lhig h: 145mmo l/L Not Available Not Available 01/26/2025 09:27:13 01/25/20 25 01/25/2025 Renal funct ion 1999 panel - Serum or Plasm a potassium [moles/volum e] in serum or plasma 4.4 mmol/ L low: 3.5mmo l/Lhig h: 5.5mmo l/L Not Available Not Available 01/26/2025 09:27:13 01/25/20 25 01/25/2025 Renal funct ion 2000 panel - Serum or Plasm a chloride [moles/volum e] in serum or plasma 106 mmol/ L low: 98mmol /Lhigh : 110mmo l/L Not Available Not Available 01/26/2025 09:27:13 01/25/20 25 01/25/2025 Renal funct ion 1999 panel - Serum or Plasm a glucose [mass/volume ] in serum or plasma 93 mg/dL low: 70mg/d Lhigh: 99mg/d L Not Available Not Available 01/26/2025 09:27:13 01/25/2001/25/2025 Renal funct ion 1999 panel - Serum or Plasm a urea nitrogen [mass/volume ] in serum or plasma 25 mg/dL low: 6mg/dL high: 22mg/d L high Not Available Not Available 01/26/2025 09:27:13 01/25/20 25 01/25/2025 Renal funct ion 1999 panel - Serum or Plasm a bicarbonate [moles/volum e] in serum or plasma 27 mmol/ L low: 20mmol /Lhigh : 32mmol /L Not Available Not Available 01/26/2025 09:27:13 01/25/2001/25/2025 Renal funct ion 1999 panel - Serum or Plasm a creatinine [mass/volume ] in serum or plasma 0.9 mg/dL low: 0.8mg/ dLhigh : 1.4mg/ dL Not Available Not Available 01/26/2025 09:27:13 01/25/2001/25/2025 Renal funct ion 1999 panel - Serum or Plasm a calcium [mass/volume ] in serum or plasma 9.3 mg/dL low: 8.4mg/ dLhigh : 10.5mg /dL Not Available Not Available 01/26/2025 09:27:13 01/25/2001/25/2025 Renal funct ion 1999 panel - Serum or Plasm a albumin [mass/volume ] in serum or plasma 3.7 g/dL low: 3.5g/d Lhigh: 5g/dL Not Available Not Available 01/26/2025 09:27:13 01/25/2001/25/2025 Renal funct ion 1999 panel - Serum or Plasm a phosphate [mass/volume ] in serum or plasma 3.6 mg/dL low: 2.5mg/ dLhigh : 4.5mg/ dL Not Available Not Available 01/26/2025 09:27:13 01/25/20 25 01/25/2025 Renal funct ion 1999 panel - Serum or Plasm a glomerular filtration rate [volume rate/area] in serum, plasma or blood by creatinine-b ased formula (CKD-epi 2020)/1.73 sq M 60.8 text: >60.0 mL/min /1.73 sq.m. eGFR calcu latio n based on the Chron ic Kidne y Disea se Epide miolo gy Colla borat ion (CKD- EPI) equat ion refit witho ut adjus tment for race. This eGFR is valid ated for stabl e chron ic renal failu re patie nts. This equat ion is unrel iable in acute illne ss or patie nts with casandra l renal funct ion. Not Available Not Available 01/26/2025 09:27:13 01/25/20 25 01/25/2025 Renal funct ion 2000 panel - Serum or Plasm a anion gap in serum or plasma by calculated.4 ions 10 mmol/ L low: 3mmol/ Lhigh: 15mmol /L Anion Gap calcu latio n based on elect rolyt e refer ence range s. Not Available Not Available 01/26/2025 09:27:13 01/25/20 25 01/25/2025 Renal funct ion 2000 panel - Serum or Plasm a interpretati on and review of laboratory results Abnorm al Not Available Not Available 09:27:13 01/25/20 25 01/24/2025 renal funct ion panel , serum sodium, serum or plasma 143 mmol/ L text: low: 133mmo l/lhig h: 145mmo l/L Not Available Not Available 03/02/2025 09:40:00 01/25/20 25 01/24/2025 renal funct ion panel , serum potassium, serum or plasma 4.4 mmol/ L text: low: 3.5mmo l/lhig h: 5.5mmo l/L Not Available Not Available 03/02/2025 09:40:00 01/25/20 25 01/24/2025 renal funct ion panel , serum chloride, serum or plasma 106 mmol/ L text: low: 98mmol /lhigh : 110mmo l/L Not Available Not Available 03/02/2025 09:40:00 01/25/20 25 01/24/2025 renal funct ion panel , serum glucose, qn [mass/volume ], serum or plasma 93 mg/dL text: low: 70mg/d lhigh: 99mg/d L Not Available Not Available 03/02/2025 09:40:00 01/25/2001/24/2025 renal funct ion panel , serum BUN (blood urea nitrogen), serum or plasma 25 mg/dL text: low: 6mg/dl high: 22mg/d L high Not Available Not Available 03/02/2025 09:40:00 01/25/2001/24/2025 renal funct ion panel , serum bicarbonate, quant, serum 27 mmol/ L text: low: 20mmol /lhigh : 32mmol /L Not Available Not Available 03/02/2025 09:40:00 01/25/2001/24/2025 renal funct ion panel , serum creatinine, serum or plasma 0.9 mg/dL text: low: 0.8mg/ dlhigh : 1.4mg/ dL Not Available Not Available 03/02/2025 09:40:00 01/25/2001/24/2025 renal funct ion panel , serum calcium, serum or plasma 9.3 mg/dL text: low: 8.4mg/ dlhigh : 10.5mg /dL Not Available Not Available 03/02/2025 09:40:00 01/25/2001/24/2025 renal funct ion panel , serum albumin, serum or plasma 3.7 g/dL text: low: 3.5g/d lhigh: 5g/dL Not Available Not Available 03/02/2025 09:40:00 01/25/2001/24/2025 renal funct ion panel , serum phosphorus, serum or plasma 3.6 mg/dL text: low: 2.5mg/ dlhigh : 4.5mg/ dL Not Available Not Available 03/02/2025 09:40:00 01/25/2001/24/2025 renal funct ion panel , serum glomerular filtration rate/1.73 sq M predicted, qn, creatinine based formula (CKD-epi 2020), serum or plasma or blood 60.8 text: text: >60.0 mL/min /1.73 sq.m. eGFR calcu latio n based on the Chron ic Kidne y Disea se Epide miolo gy Colla borat ion (CKD- EPI) equat ion refit witho ut adjus tment for race. This eGFR is valid ated for stabl e chron ic renal failu re patie nts. This equat ion is unrel iable in acute illne ss or patie nts with casandra l renal funct ion. Not Available Not Available 03/02/2025 09:40:00 01/25/2001/24/2025 renal funct ion panel , serum anion gap 4, serum or plasma (obs) 10 mmol/ L text: low: 3mmol/ lhigh: 15mmol /L Anion Gap calcu latio n based on elect rolyt e refer ence range s. Not Available Not Available 03/02/2025 09:40:00 01/25/2001/24/2025 renal funct ion panel , serum interpretati on and review of laboratory results Abnorm al Not Available Not Available 09:40:00 01/25/2001/24/2025 CBC w/ auto diff WBC, auto, blood 6.1 K/uL text: low: 4K/ulh igh: 11K/uL Not Available Not Available 03/02/2025 09:40:00 01/25/2001/24/2025 CBC w/ auto diff RBC count, blood 4.69 text: text: 3.80 - 5.20 M/uL Not Available Not Available 03/02/2025 09:40:00 01/25/2001/24/2025 CBC w/ auto diff hemoglobin (Hb), blood 13 g/dL text: low: 11.7g/ dlhigh : 16.1g/ dL Not Available Not Available 03/02/2025 09:40:00 01/25/2001/24/2025 CBC w/ auto diff hematocrit, automated count, blood 42.3 % text: low: 35.1%h igh: 48.3% Not Available Not Available 03/02/2025 09:40:00 01/25/2001/24/2025 CBC w/ auto diff MCV, blood 90 fL text: low: 80flhi gh: 99fL Not Available Not Available 03/02/2025 09:40:00 01/25/2001/24/2025 CBC w/ auto diff MCH, qn, automated (obs) 28 pg text: low: 26pghi gh: 34pg Not Available Not Available 03/02/2025 09:40:00 01/25/2001/24/2025 CBC w/ auto diff MCHC, qn, automated (obs) 31 g/dL text: low: 31g/dl high: 36g/dL Not Available Not Available 03/02/2025 09:40:00 01/25/2001/24/2025 CBC w/ auto diff erythrocyte distribution width, ratio, automated (obs) 14 % text: low: 10%hig h: 15.5% Not Available Not Available 03/02/2025 09:40:00 01/25/2001/24/2025 CBC w/ auto diff platelets, auto, blood 214 K/uL text: low: 140K/u lhigh: 440K/u L Not Available Not Available 03/02/2025 09:40:00 01/25/2001/24/2025 CBC w/ auto diff platelet mean volume, qn, automated, blood (obs) 9.9 fL text: low: 9flhig h: 13fL Not Available Not Available 03/02/2025 09:40:00 01/25/20 25 01/24/2025 CBC w/ auto diff neutrophils/ 100 leukocytes, automated, blood (obs) 63 % text: low: 40%hig h: 75% Not Available Not Available 03/02/2025 09:40:00 01/25/2001/24/2025 CBC w/ auto diff lymphocytes/ 100 leukocytes, automated, blood (obs) 26 % text: low: 20%hig h: 45% Not Available Not Available 03/02/2025 09:40:00 01/25/20 25 01/24/2025 CBC w/ auto diff monocytes/10 0 leukocytes, automated, blood (obs) 9 % text: low: 3%high : 12% Not Available Not Available 03/02/2025 09:40:00 01/25/20 25 01/24/2025 CBC w/ auto diff eosinophils/ 100 leukocytes, automated, blood (obs) 2 % text: low: 0%high : 6% Not Available Not Available 03/02/2025 09:40:00 01/25/20 01/24/2025 CBC w/ auto diff basophils/10 0 leukocytes, automated, blood (obs) 0 % text: low: 0%high : 2% Not Available Not Available 03/02/2025 09:40:00 01/25/2001/24/2025 CBC w/ auto diff neutrophil count, absolute (anc), blood (obs) 3.9 K/uL text: low: 1.8K/u lhigh: 7.7K/u L Not Available Not Available 03/02/2025 09:40:00 01/25/2001/24/2025 CBC w/ auto diff lymphocytes, quantitative , blood, automated count (obs) 1.6 K/uL text: low: 1K/ulh igh: 4.8K/u L Not Available Not Available 03/02/2025 09:40:00 01/25/2001/24/2025 CBC w/ auto diff monocytes, count, automated, blood (obs) 0.6 K/uL text: low: 0.1K/u lhigh: 1K/uL Not Available Not Available 03/02/2025 09:40:00 01/25/2001/24/2025 CBC w/ auto diff eosinophils, auto, blood, absolute 0.1 K/uL text: low: 0K/ulh igh: 0.5K/u L Not Available Not Available 03/02/2025 09:40:00 01/25/2001/24/2025 CBC w/ auto diff basophils, quant, auto, blood (obs) 0 K/uL text: low: 0K/ulh igh: 0.2K/u L Not Available Not Available 03/02/2025 09:40:00 01/25/2001/24/2025 CBC w/ auto diff interpretati on and review of laboratory results Normal Not Available Not Available 02/08 09:40:00 01/25/2001/24/2025 CBC w/ auto diff WBC, auto, blood 6.1 K/uL text: text: low: 4K/ulh igh: 11K/uL Not Available Not Available 03/02/2025 09:40:00 01/25/2001/24/2025 CBC w/ auto diff RBC count, blood 4.69 text: text: text: 3.80 - 5.20 M/uL Not Available Not Available 03/02/2025 09:40:00 01/25/2001/24/2025 CBC w/ auto diff hemoglobin (Hb), blood 13 g/dL text: text: low: 11.7g/ dlhigh : 16.1g/ dL Not Available Not Available 03/02/2025 09:40:00 01/25/2001/24/2025 CBC w/ auto diff hematocrit, automated count, blood 42.3 % text: text: low: 35.1%h igh: 48.3% Not Available Not Available 03/02/2025 09:40:00 01/25/2001/24/2025 CBC w/ auto diff MCV, blood 90 fL text: text: low: 80flhi gh: 99fL Not Available Not Available 03/02/2025 09:40:00 01/25/2001/24/2025 CBC w/ auto diff MCH, qn, automated (obs) 28 pg text: text: low: 26pghi gh: 34pg Not Available Not Available 03/02/2025 09:40:00 01/25/2001/24/2025 CBC w/ auto diff MCHC, qn, automated (obs) 31 g/dL text: text: low: 31g/dl high: 36g/dL Not Available Not Available 03/02/2025 09:40:00 01/25/2001/24/2025 CBC w/ auto diff erythrocyte distribution width, ratio, automated (obs) 14 % text: text: low: 10%hig h: 15.5% Not Available Not Available 03/02/2025 09:40:00 01/25/2001/24/2025 CBC w/ auto diff platelets, auto, blood 214 K/uL text: text: low: 140K/u lhigh: 440K/u L Not Available Not Available 03/02/2025 09:40:00 01/25/2001/24/2025 CBC w/ auto diff platelet mean volume, qn, automated, blood (obs) 9.9 fL text: text: low: 9flhig h: 13fL Not Available Not Available 03/02/2025 09:40:00 01/25/20 25 01/24/2025 CBC w/ auto diff neutrophils/ 100 leukocytes, automated, blood (obs) 63 % text: text: low: 40%hig h: 75% Not Available Not Available 03/02/2025 09:40:00 01/25/20 25 01/24/2025 CBC w/ auto diff lymphocytes/ 100 leukocytes, automated, blood (obs) 26 % text: text: low: 20%hig h: 45% Not Available Not Available 03/02/2025 09:40:00 01/25/20 25 01/24/2025 CBC w/ auto diff monocytes/10 0 leukocytes, automated, blood (obs) 9 % text: text: low: 3%high : 12% Not Available Not Available 03/02/2025 09:40:00 01/25/20 25 01/24/2025 CBC w/ auto diff eosinophils/ 100 leukocytes, automated, blood (obs) 2 % text: text: low: 0%high : 6% Not Available Not Available 03/02/2025 09:40:00 01/25/2001/24/2025 CBC w/ auto diff basophils/10 0 leukocytes, automated, blood (obs) 0 % text: text: low: 0%high : 2% Not Available Not Available 03/02/2025 09:40:00 01/25/2001/24/2025 CBC w/ auto diff neutrophil count, absolute (anc), blood (obs) 3.9 K/uL text: text: low: 1.8K/u lhigh: 7.7K/u L Not Available Not Available 03/02/2025 09:40:00 01/25/20 25 01/24/2025 CBC w/ auto diff lymphocytes, quantitative , blood, automated count (obs) 1.6 K/uL text: text: low: 1K/ulh igh: 4.8K/u L Not Available Not Available 03/02/2025 09:40:00 01/25/20 25 01/24/2025 CBC w/ auto diff monocytes, count, automated, blood (obs) 0.6 K/uL text: text: low: 0.1K/u lhigh: 1K/uL Not Available Not Available 03/02/2025 09:40:00 01/25/20 01/24/2025 CBC w/ auto diff eosinophils, auto, blood, absolute 0.1 K/uL text: text: low: 0K/ulh igh: 0.5K/u L Not Available Not Available 03/02/2025 09:40:00 01/25/2001/24/2025 CBC w/ auto diff basophils, quant, auto, blood (obs) 0 K/uL text: text: low: 0K/ulh igh: 0.2K/u L Not Available Not Available 03/02/2025 09:40:00 01/25/2001/24/2025 CBC w/ auto diff interpretati on and review of laboratory results Normal Not Available Not Available 02/08 09:40:00 01/25/2001/24/2025 renal funct ion panel , serum sodium, serum or plasma 143 mmol/ L text: text: low: 133mmo l/lhig h: 145mmo l/L Not Available Not Available 03/02/2025 09:40:00 01/25/2001/24/2025 renal funct ion panel , serum potassium, serum or plasma 4.4 mmol/ L text: text: low: 3.5mmo l/lhig h: 5.5mmo l/L Not Available Not Available 03/02/2025 09:40:00 01/25/2001/24/2025 renal funct ion panel , serum chloride, serum or plasma 106 mmol/ L text: text: low: 98mmol /lhigh : 110mmo l/L Not Available Not Available 03/02/2025 09:40:00 01/25/2001/24/2025 renal funct ion panel , serum glucose, qn [mass/volume ], serum or plasma 93 mg/dL text: text: low: 70mg/d lhigh: 99mg/d L Not Available Not Available 03/02/2025 09:40:00 01/25/2001/24/2025 renal funct ion panel , serum BUN (blood urea nitrogen), serum or plasma 25 mg/dL text: text: low: 6mg/dl high: 22mg/d L high Not Available Not Available 03/02/2025 09:40:00 01/25/2001/24/2025 renal funct ion panel , serum bicarbonate, quant, serum 27 mmol/ L text: text: low: 20mmol /lhigh : 32mmol /L Not Available Not Available 03/02/2025 09:40:00 01/25/2001/24/2025 renal funct ion panel , serum creatinine, serum or plasma 0.9 mg/dL text: text: low: 0.8mg/ dlhigh : 1.4mg/ dL Not Available Not Available 03/02/2025 09:40:00 01/25/2001/24/2025 renal funct ion panel , serum calcium, serum or plasma 9.3 mg/dL text: text: low: 8.4mg/ dlhigh : 10.5mg /dL Not Available Not Available 03/02/2025 09:40:00 01/25/2001/24/2025 renal funct ion panel , serum albumin, serum or plasma 3.7 g/dL text: text: low: 3.5g/d lhigh: 5g/dL Not Available Not Available 03/02/2025 09:40:00 01/25/2001/24/2025 renal funct ion panel , serum phosphorus, serum or plasma 3.6 mg/dL text: text: low: 2.5mg/ dlhigh : 4.5mg/ dL Not Available Not Available 03/02/2025 09:40:00 01/25/2001/24/2025 renal funct ion panel , serum glomerular filtration rate/1.73 sq M predicted, qn, creatinine based formula (CKD-epi 2020), serum or plasma or blood 60.8 text: text: text: >60.0 mL/min /1.73 sq.m. eGFR calcu latio n based on the Chron ic Kidne y Disea se Epide miolo gy Colla borat ion (CKD- EPI) equat ion refit witho ut adjus tment for race. This eGFR is valid ated for stabl e chron ic renal failu re patie nts. This equat ion is unrel iable in acute illne ss or patie nts with casandra l renal funct ion. Not Available Not Available 03/02/2025 09:40:00 01/25/2001/24/2025 renal funct ion panel , serum anion gap 4, serum or plasma (obs) 10 mmol/ L text: text: low: 3mmol/ lhigh: 15mmol /L Anion Gap calcu latio n based on elect rolyt e refer ence range s. Not Available Not Available 03/02/2025 09:40:00 01/25/2001/24/2025 renal funct ion panel , serum interpretati on and review of laboratory results Abnorm al Not Available Not Available 09:40:00 02/19/2002/18/2025 immun oglob ulins iga+i gg+ig m, quant itati ve, serum IgA, quantitative , serum 105 mg/dL low: 85high : 499 Not Available Not Available 05/03/2025 14:29:48 02/19/2002/18/2025 immun oglob ulins iga+i gg+ig m, quant itati ve, serum IgG, quantitative , serum 646 mg/dL low: 610hig h: 1616 Not Available Not Available 05/03/2025 14:29:48 02/19/2002/18/2025 immun oglob ulins iga+i gg+ig m, quant itati ve, serum IgM, quantitative , serum 69 mg/dL low: 35high : 242 Not Available Not Available 05/03/2025 14:29:48 02/19/2002/18/2025 kappa light chain s free/ lambd a light chain s free, ratio , serum immunoglobul in light chains, kappa, free, quantitative , serum 52.01 mg/L low: 3.3hig h: 19.4 high Not Available Not Available 05/03/2025 14:29:48 02/19/2002/18/2025 kappa light chain s free/ lambd a light chain s free, ratio , serum kappa light chains/lambd a light chains, ratio, serum (obs) 3.07 % low: 0.26hi gh: 1.65 high Not Available Not Available 05/03/2025 14:29:48 02/19/2002/18/2025 kappa light chain s free/ lambd a light chain s free, ratio , serum lambda light chains, free, serum or plasma 16.94 mg/L low: 5.71hi gh: 26.3 Not Available Not Available 05/03/2025 14:29:48 02/19/2002/18/2025 CMP, serum or plasm a ALT (alanine aminotransfe rase), serum or plasma 24 [IU]/ L low: 10high : 49 Not Available Not Available 05/03/2025 14:29:48 02/19/2002/18/2025 CMP, serum or plasm a glucose, qn [mass/volume ], serum or plasma 89 mg/dL low: 74high : 106 Not Available Not Available 05/03/2025 14:29:48 02/19/2002/18/2025 CMP, serum or plasm a protein, total, serum 5.8 g/dL low: 5.7hig h: 8.2 Not Available Not Available 05/03/2025 14:29:48 02/19/2002/18/2025 CMP, serum or plasm a AST/SGOT (aspartate aminotransfe rase), serum or plasma 21 [IU]/ L low: 0high: 34 Not Available Not Available 05/03/2025 14:29:48 02/19/2002/18/2025 CMP, serum or plasm a bilirubin, total, serum or plasma 0.7 mg/dL low: 0.3hig h: 1.2 Not Available Not Available 05/03/2025 14:29:48 02/19/2002/18/2025 CMP, serum or plasm a sodium, serum or plasma 143 mmol/ l low: 136hig h: 145 Not Available Not Available 05/03/2025 14:29:48 02/19/2002/18/2025 CMP, serum or plasm a alkaline phosphatase, serum or plasma 83 [IU]/ L low: 46high : 160 Not Available Not Available 05/03/2025 14:29:48 02/19/2002/18/2025 CMP, serum or plasm a GFR estimate 57.61 % Not Available Not A vailable 05/03/2025 14:29:48 02/19/2002/18/2025 CMP, serum or plasm a calcium, serum or plasma 9.8 mg/dL low: 8.7hig h: 10.4 Not Available Not Available 05/03/2025 14:29:48 02/19/2002/18/2025 CMP, serum or plasm a CO2 27 mmol/ l low: 20high : 31 Not Available Not Available 05/03/2025 14:29:48 02/19/2002/18/2025 CMP, serum or plasm a chloride, serum or plasma 107 mmol/ l low: 98high : 107 Not Available Not Available 05/03/2025 14:29:48 02/19/2002/18/2025 CMP, serum or plasm a BUN (blood urea nitrogen), serum or plasma 28 mg/dL low: 9high: 23 high Not Available Not Available 05/03/2025 14:29:48 02/19/2002/18/2025 CMP, serum or plasm a creatinine, serum or plasma 0.99 mg/dL low: 0.55hi gh: 1.3 Not Available Not Available 05/03/2025 14:29:48 02/19/2002/18/2025 CMP, serum or plasm a albumin, serum or plasma 3.5 g/dL low: 3.4hig h: 5 Not Available Not Available 05/03/2025 14:29:48 02/19/2002/18/2025 CMP, serum or plasm a potassium, serum or plasma 4.6 mmol/ l low: 3.5hig h: 5.1 Not Available Not Available 05/03/2025 14:29:48 04/05/20 24 12/04/2023 US, gallb ladde r No observ ation record ed. [email or web address] Not Available 2023 13:51:18 04/05/20 24 12/24/2023 US, dillon xelpidio s, lower extre mity No observ ation record ed. [email or web address] Not Available 2023 13:55:58 04/07/2008/16/2023 MRI, lumba r spine , w/o contr ast No observ ation record ed. [email or web address] [facility] [address] [facility] [address], [place], [address], 04/12/2024 11:00:45 07/23/1912/04/2023 US, gallb ladde r No observ ation record ed. [facility] [address], [address], 07/28/2024 11:01:39 07/23/19 25 06/25/2024 pulmo nary funct ion test* No observ ation record ed. [email or web address] Not Available 2024 11:15:30 07/23/19 25 07/03/2023 colon oscop y proce dure (PROC ) No observ ation record ed. [email or web address] Cornelio Ho MD [address], [address], 07/26/2024 15:24:00 07/23/19 25 07/03/2023 biops y, colon (PROC ) No observ ation record ed. [facility] [address], [address], 07/28/2024 11:04:30 07/23/19 25 05/13/2024 US, abdom en No observ ation record ed. Not Available 2024 11:03:16 07/26/19 25 05/13/2024 US, abdom en, limit ed No observ ation record ed. [email or web address] Not Available 2024 14:59:07 10/22/19 25 09/07/2024 elect felicita marcosgr am No observ ation record ed. [email or web address] Not Available 2024 11:12:53 10/22/19 25 09/24/2024 pulmo nary funct ion test* No observ ation record ed. [email or web address] Not Available 2024 12:53:23 01/27/20 25 12/01/2024 US, gallb ladde r No observ ation record ed. [email or web address] Not Available 2024 09:27:38 02/04/20 25 12/09/2024 XR, chest No observ ation record ed. [email or web address] Not Available 2024 17:20:57 02/23/20 25 10/28/2024 MRI, brain , w/wo contr ast No observ ation record ed. [email or web address] Not Available 2024 10:30:04 05/17/20 25 04/03/2023 imagi ng/di agnos tic resul t No observ ation record ed. [facility] [address] [facility] [address], [place], [address], 05/17/2025 14:54:52 Result Notes None recorded. Problems Name Problem SNOMED Code Status Onset Date Resolution Date Notes Provider Name and Address Organization Details Recorded Time Hypertensi ve disorder 26459657 Active [facility] 2 10:18:18 Chronic kidney disease stage 3 968711644 Active [facility] 2 10:18:36 Gout 51734933 Active [facility] 2 10:18:46 Dyslipidem ia 812153195 Active [facility] 2 10:19:17 Impaired glucose tolerance 0676264 [facility] 2 10:19:40 Morbid obesity 661819580 Active 2022 Not Available [facility] 5 22:03:00 Daytime somnolence 987946860296 Active 2022 Not Available [facility] 5 22:03:00 Obesity 803534343 Active 2023 Not Available [facility] 5 22:03:06 Chronic pain 52171259 Active 2023 Not Available [facility] 5 22:03:06 Prediabete s 799697725 Active 2023 Not Available [facility] 5 22:03:06 Problem Notes None recorded. Procedures Surgical History Date Name Laterality Status Provider Name and Address Organization Details Recorded Time 4 Date of Last Colonoscopy completed Guerda Del Toro [facility] 09/24/2023 12:30:02 2 screening mammography of bilateral breasts completed [facility] 04/05/2022 16:39:02 2 Most Recent Bone Density completed Chata Ferreira [facility] 2023 14:36:53 operation on breast completed [facility] 04/08/2022 09:03:16 procedure on foot completed [facility] 04/08/2022 09:03:31 extraction of wisdom tooth completed [facility] 04/08/2022 09:03:40 Imaging Results None recorded. Procedure Notes None recorded. Medical Equipment None Reported. Allergies Allergen ID Allergen Name Allergen Category Reaction Reaction Severity Criticality Documentation Date Start Date Code Code System Note Provider Name and Address Organization Details Recorded Time 489848 prednison e medicatio n nausea Not available high 04/08/2022 8640 RxNorm Fabiana Johnson [facility] 3 11:09:22 753781 doxycycli ne Not available Not available Not available Not available 06/10/2024 3640 RxNorm Not Available yessi - External Data Service - prod 5 10:01:04 Medications Name Sig Start Date Stop Date Status Note LastModified by Organization Details LastModified Time amoxicill in 500 mg capsule take 1 capsule by mouth three times a day 08/15 completed finished Not Available Not Available Not Available medroxypr ogesteron e 10 mg tablet take 1 tablet by mouth once daily 04/09 completed Not Available Not Available Not Available ketoconaz ole 2 % shampoo WASH THE AFFECTED AREA DAILY FOR 3 WEEKS, THEN 2 TO 3 TIMES A WEE... (REFER TO PRESCRIP TION NOTES). active not using Not Available Not Available Not Available propranol ol ER 60 mg capsule,2 4 hr,extend ed release take 1 capsule by mouth once daily 02/07 completed stopped 06/19/22 Patient called pcp who confirme d they stopped proponol ol due to swelling in leg and added losartan 100 mg Not Available Not Available Not Available simvastat in 10 mg tablet take 1 tablet by mouth every evening 04/09 completed not taking at this time Not Available Not Available Not Available clopidogr el 75 mg tablet TAKE 1 tablet Orally Once a day 90 days 12/21 completed Not Available Not Available Not Available chlorthal idone 25 mg tablet take 1 tablet by mouth once daily 04/20 completed Not Available Not Available Not Available ciproflox acin 500 mg tablet take 1 tablet by mouth every 12 hours for 5 days 02/11 completed Not Available Not Available Not Available spironola ctone 25 mg tablet TAKE 1 TABLET BY MOUTH ONCE DAILY active Not Available Not Available No t Available doxycycli ne monohydra te 50 mg capsule take 1 capsule by mouth once daily with food 12/29 completed move to if done Not Available Not Available Not Available magnesium oxide 400 mg (241.3 mg magnesium ) tablet Take 1 tablet every day by oral route at bedtime. active Not Available Not Available No t Available hyoscyami ne 0.125 mg disintegr ating tablet Place 1 tablet 4 times a day by sublingu al route as needed. active as needed Not Available Not Available Not Available cephalexi n 500 mg capsule take 1 capsule by mouth three times a day for 5 days 06/30 completed not taking Not Available Not Available Not Available erythromy isabelle 5 mg/gram (0.5 %) eye ointment APPLY 1 CM RIBBON INTO THE LOWER CONJUNCT IVAL SAC(S) IN THE AFFECTED EYE(S) BY OPHTHALM IC ROUTE 3 TIMES PER DAY 08/15 completed not using Not Available Not Available Not Available gabapenti n 300 mg capsule TAKE 1 CAPSULE BY MOUTH IN THE MORNING 1 CAPSULE BY MOUTH IN THE AFTERNOO N AND 2 CAPSULE NIGHTLY active Not Available Not Available No t Available aspirin 81 mg chewable tablet Chew 1 tablet every day by oral route. active Not Available Not Available No t Available bisacodyl 5 mg tablet,de layed release take 2 tablets by mouth once daily for 2 days 09/26 completed finished Not Available Not Available Not Available aspirin 81 mg tablet Take by oral route. 04/09 completed Not Available Not Available Not Available gabapenti n 100 mg capsule take 1 capsule by mouth at bedtime 06/10 completed 300 mg Not Available Not Available Not Available polyethyl estefanía glycol 3350 17 gram/dose oral powder TAKE DIRECTED FOR BOWEL PREP 09/26 completed finished Not Available Not Available Not Available albuterol sulfate HFA 90 mcg/actua tion aerosol inhaler INAHLE 2 PUFFS INTO THE LUNGS EVERY 4 - 6 HOURS NEEDED active as needed Not Available Not Available Not Available ketoconaz ole 2 % topical cream APPLY TOPICALL Y TO THE AFFECTED AREA ONCE DAILY active using almost every day Not Available Not Available Not Available losartan 100 mg tablet TAKE 1 TABLET BY MOUTH EVERY NIGHT AT BEDTIME active Not Available Not Available No t Available clotrimaz ole 1 % topical cream active as needed Not Available Not Available Not Available metronida zole 0.75 % topical gel APPLY EXTERNAL LY TO THE AFFECTED AREA ONCE A DAY AT BEDTIME active Not Available Not Available No t Available doxycycli ne hyclate 100 mg tablet take 1 tablet by mouth twice a day 12/29 completed move to if done Not Available Not Available Not Available amoxicill in 875 mg-potass ium clavulana te 125 mg tablet take 1 tablet by mouth every 12 hours for 10 days 04/08 completed Not Available Not Available Not Available [place] 325 mg-5 mg tablet Take 1 tablet every 6 hours by oral route as needed. 04/09 completed Not Available Not Available Not Available ezetimibe 10 mg tablet TAKE 1 TABLET BY MOUTH EVERY NIGHT AT BEDTIME active Not Available Not Available No t Available Restasis 0.05 % eye drops in a dropperet te instill 1 drop into both eyes twice a day 08/15 completed hasn't been taking, sen eyes Not Available Not Available Not Available rosuvasta tin 10 mg tablet take 1 tablet by mouth once daily ON FRIDAY, , AND FRIDAY active Not Available Not Available No t Available [place] 3 500 mg daily 05/11 completed hasn't been taking Not Available Not Available Not Available calcium 600 mg (as carbonate )-vitamin D3 10 mcg (400 unit) tablet take 1 tablet by mouth once daily with meals active Not Available Not Available No t Available cholecalc iferol (vitamin D3) 1,250 mcg (50,000 unit) capsule Take 1 capsule every day by oral route. 02/07 completed says she never took this Not Available Not Available Not Available febuxosta t 40 mg tablet TAKE 1 TABLET BY MOUTH EVERY FRIDAY, , FRIDAY active Not Available Not Available No t Available Breo Ellipta 200 mcg-25 mcg/dose powder for inhalatio n INALE 1 PUFF BY MOUTH ONCE A DAY AT THE SAME TIME active Not Available Not Available No t Available vitamin D3 2,000 unit-foli c acid 1 mg tablet Take 1 tablet every day by oral route. 02/07 completed not taking - doing a combo Not Available Not Available Not Available Vitals Date Recorded Body height Body mass index (BMI) Body weight Body temperature Oxygen saturation Heart rate Respiratory rate Systolic And Diastolic Provider Name and Address Organization Details Last Updated DateTime 5 152.53 cm 34.4 kg/m2 07085.6 9 g 97.6 [degF] 97 % 75 /min 16 /min 109/69 mm[Hg] [facility] 5 11:04:52 Date Recorded Body height Body mass index (BMI) Body weight Respiratory rate Body temperature Oxygen saturation Heart rate Systolic And Diastolic Systolic And Diastolic Provider Name and Address Organization Details Last Updated DateTime 5 152.53 cm 35 kg/m2 18014.4 7 g 16 /min 97.7 [degF] 99 % 60 /min 99/65 mm[Hg] 117/62 mm[Hg] [facility] 5 10:10:29 Date Recorded Body height Body mass index (BMI) Body weight Respiratory rate Body temperature Oxygen saturation Heart rate Systolic And Diastolic Provider Name and Address Organization Details Last Updated DateTime 5 152.53 cm 35.2 kg/m2 74101.7 8 g 16 /min 97.8 [degF] 99 % 75 /min 133/70 mm[Hg] [facility] 5 10:02:21 Date Recorded Body height Body mass index (BMI) Body weight Respiratory rate Body temperature Oxygen saturation Heart rate Systolic And Diastolic Provider Name and Address Organization Details Last Updated DateTime 4 152.53 cm 35.1 kg/m2 02264.6 3 g 16 /min 97.5 [degF] 96 % 88 /min 144/78 mm[Hg] Guerda Dle Toro [facility] 4 12:35:47 Date Recorded Body height Body mass index (BMI) Body weight Respiratory rate Oxygen saturation Heart rate Body temperature Systolic And Diastolic Provider Name and Address Organization Details Last Updated DateTime 5 152.53 cm 36.4 kg/m2 50640.3 4 g 14 /min 98 % 68 /min 97.5 [degF] 109/72 mm[Hg] Emma Galvez [facility] 5 10:16:39 Social History Question Answer Notes LastModified by Organizat ion Details LastModified Time Tobacco Smoking Status Never Smoker Lorene Annamaria sheldon [facility] 04/08/2022 09:00:49 Do You Have An Advance Directive? No Information not available 04/08/2022 How Many Years Have You Consumed Alcohol? 55 [email or web address] Information not available 07/10/2023 Are You Blind Or Do You Have Difficulty Seeing? No Information not available 04/08/2022 What Is Your Level Of Caffeine Consumption? Occasional Tea On Rare Occasion Information not available 05/16/2022 Are You Deaf Or Do You Have Serious Difficulty Hearing? Yes Wears Hearing Aids Information not available 04/08/2022 Do You Have A Medical Power Of Juvenile Corrections Officer? No Information not available 04/08/2022 What Was The Date Of Your Most Recent Tobacco Screening? 05/11/2025 Information not available 05/11/2025 How Many Children Do You Have? 2 Information not available 04/08/2022 Have You Ever Been Counseled For Unhealthy Alcohol Use? Yes Information not available 04/08/2022 What Is Your Relationship Status? Information not available 04/08/2022 Has Tobacco Cessation Counseling Been Provided? Yes [email or web address] Information not available 02/06/2023 On What Date Was Tobacco Cessation Counseling Provided? 05/11/2025 Information not available 05/11/2025 Do You Have Difficulty Walking Or Climbing Stairs? Yes [email or web address] Information not available 08/29/2022 How Many Days In The Past Year Have You Consumed 4 Or More Drinks? 0 [email or web address] Information not available 07/10/2023 Sex: Unknown Functional Status Question Answer Note LastModified by Organizat ion Details LastModified Time Do you use any illicit or recreational drugs? No Information not available 04/08/2022 Do you or have you ever used any other forms of tobacco or nicotine? No Information not available 04/08/2022 What is your level of alcohol consumption? Occasional 1-2 times a year Information not available 05/16/2022 Are you currently employed? No Information not available 04/08/2022 Do you have difficulty doing errands alone? No [email or web address] Information not available 08/29/2022 Are you able to care for yourself independently? Yes Information not available 04/08/2022 Do you have difficulty dressing, bathing, grooming, or toileting? No Information not available 08/29/2022 Mental Status Question Answer Note LastModified by Organization D etails LastModified Time Do you have difficulty concentrating, remembering or making decisions? No Information no t available 04/08/2022 Family History Nothing Reported. Medical History Condition Response Hemorrhoids Y Arthritis Y Stroke/TIA Y Back Problems Y Asthma Y Sinus Problems Y Have you seen this provider in the last 3 years? Y Colon Polyps Y Hypertension Y Gynecological History Statement/Question Response Date of Last Colonoscopy 06/09/2023 Most Recent Bone Density 12/26/2021 Obstetrics History GPAL:G 0 P 0 0 0 0 Immunizations Vaccine Type Date Status Note Provider Nam e and Address Organization Details Recorded Time Influenza, adjuvanted, trivalent, PF 8 completed Lorene sheldon [facility] 08/26/2022 11:41:35 Influenza, recombinant, trivalent, PF 4 completed Lorene sheldon [facility] 04/08/2022 08:59:03 COVID-19, mRNA, LNP-S, PF, 100 mcg/0.5mL dose or 50 mcg/0.25mL dose 1 completed Lorene sheldon [facility] 08/26/2022 11:41:35 Influenza, adjuvanted, quadrivalent, PF 1 completed Lorene Yin null, [facility] 08/26/2022 11:41:35 Pneumococcal conjugate PCV 13 6 completed Lorene Yin null, [facility] 08/26/2022 11:41:35 zoster recombinant 9 completed Lorene Yin null, [facility] 08/26/2022 11:41:35 zoster live 3 completed Lorene Yin null, [facility] 04/08/2022 08:59:03 Tdap 0 completed Lorene Yin null, [facility] 08/26/2022 11:41:35 pneumococcal polysaccharide PPV23 0 completed Lorene Yin null, [facility] 08/26/2022 11:41:35 zoster recombinant 9 completed Lorene Yin null, [facility] 08/26/2022 11:41:35 COVID-19, mRNA, LNP-S, PF, 100 mcg/0.5mL dose or 50 mcg/0.25mL dose 1 completed Lorene Yin null, [facility] 08/26/2022 11:41:35 Influenza, live, trivalent, intranasal, PF 5 completed Lorene Yin null, [facility] 04/08/2022 08:59:03 Influenza, live, trivalent, intranasal, PF 7 completed Lorene Yin null, [facility] 08/26/2022 11:41:35 Influenza, high-dose, trivalent, PF 6 completed Lorene Yin null, [facility] 08/26/2022 11:41:35 Influenza, high-dose, trivalent, PF 0 completed Lorene Yin null, [facility] 08/26/2022 11:41:35 Novel [id number]-[id number] 9 completed Lorene Yin null, [facility] 08/26/2022 11:41:35 COVID-19, mRNA, LNP-S, PF, 100 mcg/0.5mL dose or 50 mcg/0.25mL dose 1 completed Lorene Yin null, [facility] 08/26/2022 11:41:35 Influenza, adjuvanted, trivalent, PF 9 completed Lorene Yin null, [facility] 08/26/2022 11:41:35 Influenza, MDCK, quadrivalent, PF 2 completed Ethan Rae null, [facility] 08/29/2022 13:54:38 SARS-COV-2 (COVID-19) vaccine, UNSPECIFIED 4 completed Guerda Pace [facility], [facility] 03/08/2024 09:09:19 influenza nasal, unspecified formulation 4 completed Kree Pace null, [facility] 03/08/2024 09:09:29 Td (adult), 2 Lf tetanus toxoid, preservative free, adsorbed 3 completed Not Available [facility] 05/10/2025 18:12:01 RSV, bivalent, protein subunit RSVpreF, diluent reconstituted, 0.5 mL, PF 4 completed Not Available [facility] 05/10/2025 18:12:01 Influenza, adjuvanted, quadrivalent, PF 3 completed Not Available [facility] 05/10/2025 18:12:01 COVID-19, mRNA, LNP-S, PF, 50 mcg/0.5 mL 3 completed Not Available [facility] 05/10/2025 18:12:01 COVID-19, mRNA, LNP-S, PF, 50 mcg/0.5 mL 4 completed Not Available [facility] 05/10/2025 18:12:01 COVID-19, mRNA, LNP-S, PF, 50 mcg/0.5 mL 5 completed Not Available [facility] 05/10/2025 18:12:01 Influenza, adjuvanted, trivalent, PF 5 completed Not Available [facility] 05/10/2025 18:12:01 Past Encounters Encounter ID Performer Location Encounter Start Date Encounter Closed Date Diagnosis/Indication Diagnosis SNOMED-CT Code Diagnosis ICD10 Code Diagnosis IMO Codes Diagnosis Note [id number] Gricelda Gordon MD [facility] [address] [address] [place] [address] 04/09/2022 09:45:24 04/09/2022 11:35:49 Morbid obesity 005834861 E66.01 --Class III obesity, BMI 44.8, body fat is 51.5% on ROSALBA scale --Malignan cy screen:Fam misty History:ad optedAssoc iation between obesity and various malignanci es explained. Importance of being up to date with screening emphasized .Fariha reports three and thinks she goes every five yearsBreas t20113 October, bilateral breast [id number] 28 February, mammogram without suspicious findingsGy nShe reports still having pap smears every two yearsPulmo narypulmon kamron nodule being monitored --Comorbid ities/Cont ributing Factors:Ob esogenic meds:none significan t PreDiabete sHTNDyslpi demiaCKD 3bGouthist ory of TIAGERDDJD lumbar radiculopa thy PLAN:1) Motivation al interviewi ng.2) Diet3) Exercise4) Treat Insulin Resistance 5) Additional labs to further define metabolic status, micronutri ents.6) Anti Obesity Medication s / medication s associated with weight loss:--non e 60 minutes; reviewing records, gathering history, assessing status of chronic health conditions as relates to obesity, counseling : emotional, dietary, exercise Prediabetes 210585320 R7 3.03 --specific dietary interventi on--exerci se--metfor min not appropriat e with GFR in low 40s. Chronic ki dney disease stage 3 184978449 N18.30 Daytime somnolence 28231 44961 00 R40.0 Dietary ma nagement surveillance 793608463 Z71.3 We establishe d an individual ized dietary plan based on food preference , lifestyle, and attention to particular comorbidit ies. Each visit the following principles , with adaptation to the individual patient, are discussed: --Eat to satiety at each meal. Relearn body's cues: real hunger as opposed to desire to eat for other reasons; recognize the point when one is satisfied enough to stop eating. --No eating between meals unless truly hungry. --No eating after evening meal. Goal is a minimum of two hours, preferably three, of no food intake prior to bed. --Eliminat e sugary beverages and those with artificial sweeteners . --Eliminat e sugar and flour based foods. --Aim for a large bowl of leafy greens and large bowl of cruciferou s vegetables each day (unless on a vka). --Carbohyd rates will be vegetables , legumes, fruit, rather than starch, and eaten in reasonable quantities . Education during visit: regarding hyperinsul inemia, food as medicine, reasons calories in calories out approach often fails, etc. Understand ing the underlying physiology of hunger & satiety hormones and how/why sugar is toxic, often gives patients the motivation they need to make meaningful changes. Chronic pain 24395351 G8 9.29 chronic low back pain Exercises education, guidance, and counseling 342322906 Z71.82 Educated regarding the toxicity of a sedentary lifestyle and thus, the beneficial effect of all forms of movement. Guidance is individual ized to the baseline activity level.--aq ua pt referral-- sign up for a Y so can start walking in a pool daily Dyspnea on exertion 6084 5006 R06.09 --asthma-- deconditio jackie / obesity--p ossibly echo indicated if has not had one in a few years?feat ures of her lower extremity edema are not entirely consistent with lymphedema [id number] Gricelda Gordon MD [facility] [address] [address],[facility] [address] [place] [address] 05/16/2022 13:21:17 05/16/2022 14:29:19 [id number] Gricelda Gordon MD [facility] [address] [place] [address] 08/29/2022 13:47:46 08/29/2022 15:30:40 Morbid obesity 712121494 E66.01 LOSS of 23.7 lbs (10.2 % of body weight)(st art 233.1 lbs Apr 09, body fat is 51.5% on ROSALBA scale --Class III obesity, BMI 44.8 --> 40.2 --Malignan cy screen:Fam misty History:ad optedAssoc iation between obesity and various malignanci es explained. Importance of being up to date with screening emphasized .Fariha reports three and thinks she goes every five yearsBreas t20113 October, bilateral breast [id number] 28 February, mammogram without suspicious findingsGy nShe reports still having pap smears every two yearsPulmo narypulmon kamron nodule being monitored --Comorbid ities/Cont ributing Factors:Ob esogenic meds:none significan t PreDiabete sHTNDyslpi demiaLIUD 3bGouthist ory of TIAGERDDJD lumbar radiculopa thy PLAN:1) Motivation al interviewi ng.2) Diet3) Exercise4) Treat Insulin Resistance 5) Follow micronutri ent status6) Anti Obesity Medication s / medication s associated with weight loss:--non e 60 minutes; reviewing records, gathering history, assessing status of chronic health conditions as relates to obesity, counseling : emotional, dietary, exercise Prediabetes 191057010 R7 3.03 --specific dietary interventi on--exerci se--metfor min not appropriat e with GFR in low 40s. Chronic ki dney disease stage 3 812966358 N18.30 Daytime somnolence 78707 87853 00 R40.0 improving --diet--ex ercise--mi cronutrien ts Dyspnea on exertion 6084 5006 R06.09 --asthma-- deconditio jackie / obesity--p ossibly echo indicated if has not had one in a few years?feat ures of her lower extremity edema are not entirely consistent with lymphedema Dietary glendy castaneda surveillance 177464986 Z71.3 We establishe d an individual ized dietary plan based on food preference , lifestyle, and attention to particular comorbidit ies. Each visit the following principles , with adaptation to the individual patient, are discussed: --Eat to satiety at each meal. Relearn body's cues: real hunger as opposed to desire to eat for other reasons; recognize the point when one is satisfied enough to stop eating.--N o eating between meals unless truly hungry.--N o eating after evening meal. Goal is a minimum of two hours, preferably three, of no food intake prior to bed.--Live [place] inate sugary beverages and those with artificial sweeteners .--Elimina te sugar and flour based foods.-- m for a large bowl of leafy greens and large bowl of cruciferou s vegetables each day (unless on a vka).--Car bohydrates will be vegetables , legumes, fruit, rather than starch, and eaten in reasonable quantities . Education during visit: regarding hyperinsul inemia, food as medicine, reasons calories in calories out approach often fails, etc. Understand ing the underlying physiology of hunger & satiety hormones and how/why sugar is toxic, often gives patients the motivation they need to make meaningful changes. August HPI Chronic pain 77672017 G8 9.29 chronic low back pain--anti inflammato ry diet--exer cise--weig ht loss Exercises education, guidance, and counseling 406121484 Z71.82 Educated regarding the toxicity of a sedentary lifestyle and thus, the beneficial effect of all forms of movement. Guidance is individual ized to the baseline activity level.--aq ua pt referral-- sign up for a Y so can start walking in a pool daily August HPI Vitamin B1 2 deficiency (non anemic) 21197618 E53.8 monthly injections with [place] [facility] Vitamin D deficiency 347 82241 E55.9 followed by primary Deficiency of micronutrients 153514324 E63.8 B12 - per OncD - per primaryFol ic acid 4.17 April 2022 --> start otc B complex with 200 mcg folic acid [id number] Gricelda Gordon MD [facility] _Office [address] [facility] [address] [address] 11/06/2022 10:51:23 11/06/2022 12:45:19 [id number] [facility] _Office [address] [facility] [address] [address] 12/30/2022 10:50:19 12/30/2022 11:44:53 [id number] Gricelda Gordon MD [facility] [address] [place] [address] 02/11/2023 12:16:45 02/11/2023 13:45:03 Morbid obesity 596902106 E66.01 LOSS of 36.7 lbs (15.7 % of body weight)(st art 233.1 lbs Apr 09, body fat is 51.5% on ROSALBA scale --Class III obesity, BMI 44.8 --> 37.7 --Malignan cy screen:Fam misty History:ad optedAssoc iation between obesity and various malignanci es explained. Importance of being up to date with screening emphasized .Fariha reports three and thinks she goes every five yearsBreas t2October, bilateral breast [id number] 28 February, mammogram without suspicious findingsGy nShe reports still having pap smears every two yearsPulmo narypulmon kamron nodule being monitored --Comorbid ities/Cont ributing Factors:Ob esogenic meds:none significan t PreDiabete sHTNDyslpi demiaCKD 3bCADhisto ry of TIAGERDGou tDJDlumbar radiculopa thy PLAN:1) Motivation al interviewi ng.2) Diet3) Exercise4) Treat Insulin Resistance 5) Follow micronutri ent status6) Anti Obesity Medication s / medication s associated with weight loss:--non e --glp1 best option with comorbidit ies but, unaffordab le - particular ly unfortunat e given the cad--consi syd topiramate , contrave, an sglt2 60 minutes; reviewing records, gathering history, assessing status of chronic health conditions as relates to obesity, counseling : emotional, dietary, exercise Prediabetes 761155188 R7 3.03 --specific dietary interventi on--exerci se--metfor min not appropriat e with low gfr Chronic ki dney disease stage 3 156069060 N18.30 Daytime somnolence 47519 60836 00 R40.0 improving --diet--ex ercise--mi cronutrien ts Dyspnea on exertion 6084 5006 R06.09 improving with exercise and weight loss--asth ma--decond itioning / obesity--n ormal thallium stress Vitamin B1 2 deficiency (non anemic) 34488418 E53.8 monthly injections with Hematology Vitamin D deficiency 347 37686 E55.9 followed by primary Deficiency of micronutrients 790125596 E63.8 B12 - per HemeD - per primaryFol ic acid 4.17 April 2022 --> start otc B complex with 200 mcg folic acid Dietary ma nagement surveillance 463707678 Z71.3 We establishe d an individual ized dietary plan based on food preference , lifestyle, and attention to particular comorbidit ies. Each visit the following principles , with adaptation to the individual patient, are discussed: --Eat to satiety at each meal. Relearn body's cues: real hunger as opposed to desire to eat for other reasons; recognize the point when one is satisfied enough to stop eating.--N o eating between meals unless truly hungry.--N o eating after evening meal. Goal is a minimum of two hours, preferably three, of no food intake prior to bed.--Live [place] inate sugary beverages and those with artificial sweeteners .--Elimina te sugar and flour based foods.-- m for a large bowl of leafy greens and large bowl of cruciferou s vegetables each day (unless on a vka).--Car bohydrates will be vegetables , legumes, fruit, rather than starch, and eaten in reasonable quantities . Education during visit: regarding hyperinsul inemia, food as medicine, reasons calories in calories out approach often fails, etc. Understand ing the underlying physiology of hunger & satiety hormones and how/why sugar is toxic, often gives patients the motivation they need to make meaningful changes. February HPI Chronic pain 89814106 G8 9.29 chronic low back pain--anti inflammato ry diet--exer cise--weig ht loss Exercises education, guidance, and counseling 225953151 Z71.82 Educated regarding the toxicity of a sedentary lifestyle and thus, the beneficial effect of all forms of movement. Guidance is individual ized to the baseline activity level.--aq ua pt referral-- sign up for a Y so can start walking in a pool daily February HPI Erythrocytosis 888542968 D75.07 November 2021 Hgb /Hct mildly elevated 16.3/49.4, and RBC 5.7, all trending up, remaining lines upper end normal: WBC 10.4 plat 344mcv 87already follows with Hematology , Dr Wu [id number] Gricelda Gordon MD [facility] _Office [address] [place] [address] 03/26/2023 10:51:52 03/26/2023 11:52:34 [id number] Gricelda Gordon MD [facility] [address] [place] [address] 06/19/2023 11:22:20 06/19/2023 12:28:01 Morbid obesity 096464750 E66.01 LOSS of 45.9 lbs (19.7 % of body weight)(st art 233.1 lbs Apr 09, body fat is 51.5% on ROSALBA scale --BMI 44.8 --> 36.5 --Malignan cy screen:Fam misty History:ad optedAssoc iation between obesity and various malignanci es explained. Importance of being up to date with screening emphasized .Fariha reports three and thinks she goes every five yearsBreas t2October, bilateral breast [id number] 28 February, mammogram without suspicious findingsGy nShe reports still having pap smears every two yearsPulmo narypulmon kamron nodule being monitored --Comorbid ities/Cont ributing Factors:Ob esogenic meds:none significan t PreDiabete sHTNDyslpi demiaCKD 3bCADhisto ry of TIAGERDGou tDJDlumbar radiculopa thy PLAN:1) Motivation al interviewi ng.2) Diet3) Exercise4) Treat Insulin Resistance 5) Follow micronutri ent status6) Anti Obesity Medication s / medication s associated with weight loss:--non e --glp1 best option with comorbidit ies but, unaffordab le - particular ly unfortunat e given the cad--if/wh en needed, consider topiramate , contrave, possibly an sglt2 if has proteinuri a 60 minutes; reviewing records, gathering history, assessing status of chronic health conditions as relates to obesity, counseling : emotional, dietary, exercise Prediabetes 255655758 R7 3.03 --specific dietary interventi on--exerci se--metfor min not appropriat e with low gfr Chronic ki dney disease stage 3 729428048 N18.30 unremarkab le microalbum :cr ratio 2022 Daytime somnolence 63421 38331 00 R40.0 improving --diet--ex ercise--mi cronutrien ts Dyspnea on exertion 6084 5006 R06.09 improving with exercise and weight loss--asth ma--decond itioning / obesity--n ormal thallium stress Vitamin B1 2 deficiency (non anemic) 14029010 E53.8 monthly injections with Hematology Vitamin D deficiency 347 87951 E55.9 followed by primary June 194recomm end that she take vitamin D as prescribed by primary Deficiency of micronutrients 301997554 E63.8 B12 - per HemeD - per primaryFol ic acid 4.17 April 2022 --> otc B complex with 200 mcg folic acid Erythrocytosis 684288028 D75.07 November 2021 Hgb /Hct mildly elevated 16.3/49.4, and RBC 5.7, all trending up, remaining lines upper end normal: WBC 10.4 plat 344mcv 87follows with Hematology , Dr Jerzy castaneda surveillance 244067254 Z71.3 We establishe d an individual ized dietary plan based on food preference , lifestyle, and attention to particular comorbidit ies. Each visit the following principles , with adaptation to the individual patient, are discussed: --Eat to satiety at each meal. Relearn body's cues: real hunger as opposed to desire to eat for other reasons; recognize the point when one is satisfied enough to stop eating.--N o eating between meals unless truly hungry.--N o eating after evening meal. Goal is a minimum of two hours, preferably three, of no food intake prior to bed.--Live [place] inate sugary beverages and those with artificial sweeteners .--Elimina te sugar and flour based foods.-- m for a large bowl of leafy greens and large bowl of cruciferou s vegetables each day (unless on a vka).--Car bohydrates will be vegetables , legumes, fruit, rather than starch, and eaten in reasonable quantities . Education during visit: regarding hyperinsul inemia, food as medicine, reasons calories in calories out approach often fails, etc. Understand ing the underlying physiology of hunger & satiety hormones and how/why sugar is toxic, often gives patients the motivation they need to make meaningful changes. June 19er [facility] Chronic pain 64619353 G8 9.29 chronic low back pain--anti inflammato ry diet--exer cise--weig ht loss Exercises education, guidance, and counseling 205603196 Z71.82 Educated regarding the toxicity of a sedentary lifestyle and thus, the beneficial effect of all forms of movement. Guidance is individual ized to the baseline activity level.--aq ua pt referral-- sign up for a Y so can start walking in a pool daily June 19er HPI [id number] Gricelda Gordon MD [facility] _[address],[facility] [address] [place], [place] [address] 08/11/2023 09:57:48 08/11/2023 14:52:12 [id number] Gricelda Gordon MD [facility] [address],[facility] [address] [place] [employer], [place] [address] 09/24/2023 12:23:23 09/24/2023 14:48:29 Prediabetes 832094378 R73.03 --specific dietary interventi on--exerci se--metfor min not appropriat e with low gfr Chronic ki dney disease stage 3 806111880 N18.30 urine malb elevated 29.4 (0-17) with normal alb:cr ratio Daytime somnolence 52176 64163 00 R40.0 improving --diet--ex ercise--mi cronutrien ts Dyspnea on exertion 6084 5006 R06.09 improving with exercise and weight loss--asth ma--decond itioning / obesity--n ormal thallium stress Vitamin D deficiency 347 88922 E55.9 followed by primary June 194recomm end that she take vitamin D as prescribed by primary Vitamin B1 2 deficiency (non anemic) 16887027 E53.8 monthly injections with Hematology Deficiency of micronutrients 949599093 E63.8 B12 - per HemeD - per primaryFol ic acid 4.17 April 2022 --> otc B complex with 200 mcg folic acid Erythrocytosis 731407224 D75.07 November 2021 Hgb /Hct mildly elevated 16.3/49.4, and RBC 5.7, all trending up, remaining lines upper end normal: WBC 10.4 plat 344mcv 87follows with Hematology , Dr Jerzy castaneda surveillance 972639117 Z71.3 We establishe d an individual ized dietary plan based on food preference , lifestyle, and attention to particular comorbidit ies. Each visit the following principles , with adaptation to the individual patient, are discussed: --Eat to satiety at each meal. Relearn body's cues: real hunger as opposed to desire to eat for other reasons; recognize the point when one is satisfied enough to stop eating.--N o eating between meals unless truly hungry.--N o eating after evening meal. Goal is a minimum of two hours, preferably three, of no food intake prior to bed.--Live [place] inate sugary beverages and those with artificial sweeteners .--Elimina te sugar and flour based foods.-- m for a large bowl of leafy greens and large bowl of cruciferou s vegetables each day (unless on a vka).--Car bohydrates will be vegetables , legumes, fruit, rather than starch, and eaten in reasonable quantities . Education during visit: regarding hyperinsul inemia, food as medicine, reasons calories in calories out approach often fails, etc. Understand ing the underlying physiology of hunger & satiety hormones and how/why sugar is toxic, often gives patients the motivation they need to make meaningful changes. September 234per HPI Chronic pain 14411538 G8 9.29 chronic low back pain--anti inflammato ry diet--exer cise--weig ht loss Exercises education, guidance, and counseling 029057967 Z71.82 Educated regarding the toxicity of a sedentary lifestyle and thus, the beneficial effect of all forms of movement. Guidance is individual ized to the baseline activity level.--aq ua pt referral-- sign up for a Y so can start walking in a pool daily September 23er HPI Body mass index 40+ - severely obese 885949308 Z68.42 LOSS of 45.7 lbs (19.6 % of body weight)(st art 233.1 lbs Apr 09, body fat is 51.5% on ROSALBA scale --BMI 44.8 --> 36.5 --Malignan cy screen:Fam misty History:ad optedAssoc iation between obesity and various malignanci es explained. Importance of being up to date with screening emphasized .Fariha reports three and thinks she goes every five yearsBreas t2October, bilateral breast [id number] 28 February, mammogram without suspicious findingsGy nShe reports still having pap smears every two yearsPulmo narypulmon kamron nodule being monitored --Comorbid ities/Cont ributing Factors:Ob esogenic meds:none significan t PreDiabete sHTNDyslpi demiaCKD 3bCADhisto ry of TIAGERDGou tDJDlumbar radiculopa thy PLAN:1) Motivation al interviewi ng.2) Diet3) Exercise, chronic pain4) Treat Insulin Resistance 5) Follow dyspnea, ckd, cad6) Follow micronutri ent status7) Anti Obesity Medication s / medication s associated with weight loss:--non e --glp1 best option with her comorbidit ies but, unaffordab le--if/whe n needed, consider topiramate , contrave-- possibly an sglt2 if has proteinuri a 60 minutes; reviewing records, gathering history, assessing status of chronic health conditions as relates to obesity, counseling : emotional, dietary, exercise [id number] [facility] _Office [address],[place] [address] [place] [address] 10/08/2023 09:37:28 10/08/2023 12:38:09 Chronic pain 66556255 G89.29 [id number] [facility] [facility] [address],[place] [address] [place] [address] 12/30/2023 09:53:43 12/30/2023 11:22:58 Prediabetes 095384601 R73.03 --specific dietary interventi on--exerci se--metfor min not appropriat e with low gfr Chronic ki dney disease stage 3 552057075 N18.30 --urine malb elevated 29.4 (0-17) with normal alb:cr ratio--sta ble / improved gfr as of September 2023 Daytime somnolence 73660 51928 00 R40.0 improving --diet--ex ercise--me [facility] health--mi cronutrien ts Dyspnea on exertion 6084 5006 R06.09 improving with exercise and weight lossmultif actorial-- asthma--de conditioni ng / obesity--n ormal thallium stress Vitamin D deficiency 347 90262 E55.9 followed by primary June 194recomm end that she take vitamin D as prescribed by primary Vitamin B1 2 deficiency (non anemic) 44699670 E53.8 monthly injections with Hematology Deficiency of micronutrients 511528578 E63.8 B12 - per HemeD - per primaryFol ic acid 4.17 April 2022 --> otc B complex with 200 mcg folic acid Erythrocytosis 892012789 D75.07 November 2021 Hgb /Hct mildly elevated 16.3/49.4, and RBC 5.7, all trending up, remaining lines upper end normal: WBC 10.4 plat 344mcv 87follows with Hematology , Dr Jerzy Hanson [place] surveillance [id number] Z71.3 We establishe d an individual ized dietary plan based on food preference , lifestyle, and attention to particular comorbidit ies. Each visit the following principles , with adaptation to the individual patient, are discussed: --Eat to satiety at each meal. Relearn body's cues: real hunger as opposed to desire to eat for other reasons; recognize the point when one is satisfied enough to stop eating.--N o eating between meals unless truly hungry.--N o eating after evening meal. Goal is a minimum of two hours, preferably three, of no food intake prior to bed.--[place] inate sugary beverages and those with artificial sweeteners .--Elimina te sugar and flour based foods.-- m for a large bowl of leafy greens and large bowl of cruciferou s vegetables each day (unless on a vka).--Car bohydrates will be vegetables , legumes, fruit, rather than starch, and eaten in reasonable quantities . Education during visit: regarding hyperinsul inemia, food as medicine, reasons calories in calories out approach often fails, etc. Understand ing the underlying physiology of hunger & satiety hormones and how/why sugar is toxic, often gives patients the motivation they need to make meaningful changes. December 29er HPI Chronic pain 78670154 G8 9.29 chronic low back pain--anti inflammato ry diet--exer cise--weig ht loss Exercises education, guidance, and counseling 377081520 Z71.82 Educated regarding the toxicity of a sedentary lifestyle and thus, the beneficial effect of all forms of movement. Guidance is individual ized to the baseline activity level.--aq ua pt referral-- sign up for a Y so can start walking in a pool daily December 29er HPI Morbid obesity 933798402 E66.01 LOSS of 49.7 lbs (21.3% % of body weight)(st art 233.1 lbs Apr 09, body fat is 51.5% on ROSALBA scale --BMI 44.8 --> 35.8 --Malignan cy screen:Fam misty History:ad optedAssoc iation between obesity and various malignanci es explained. Importance of being up to date with screening emphasized .Fariha reports three and thinks she goes every five years, says most recent was 2022 or reast 2016, bilateral breast [id number] 28 February, mammogram without suspicious findingsGy nShe reports still having pap smears every two yearsPulmo narypulmon kamron nodule being monitored --Comorbid ities/Cont ributing Factors:Ob esogenic meds:none significan t Prediabete sHTNDyslpi demiaCKD 3bCADhisto ry [facility] tDJDlumbar radiculopa thy areas to interven / follow:1) motivation al interviewi ng2) diet3) exercise, chronic pain4) insulin resistance 5) dyspnea, htn, ckd, cad6) micronutri ent status7) Anti Obesity Medication s / medication s associated with weight loss:--non e --glp1 best option with her comorbidit ies--if/wh en needed, consider topiramate , contrave-- possibly an sglt2 if has proteinuri a 60 minutes; reviewing records, gathering history, assessing status of chronic health conditions as relates to obesity, counseling : emotional, dietary, exercise Lymphedema of lower extremity 506169167 I89.0 she's interested in a second course of decongetiv e therapy Essential hypertension 00976713 I10 bp 97/63expla ined the antihypert ensives often need to be lessened with weight lossadvise d to discuss with primary or cardiology [id number] Gricelda Gordon MD [facility] [address],[facility] [address] [place], [place] [address] 03/08/2024 08:53:00 03/08/2024 09:20:27 [id number] Gricelda Gordon MD [facility] [employer] [address],[facility] [address] [place], [place] 6 03/10/2024 08:45:02 03/10/2024 11:55:26 Obesity 902767149 E66.9 Diet education 02450529 Z71.3 Exercises education, guidance, and counseling 478318947 Z71.82 Chronic pain 44011498 G8 9.29 Prediabetes 997224209 R7 3.03 [id number] Gricelda Gordon MD [facility] [address],[facility] [address] [place], [place] 6 04/20/2024 12:21:18 04/20/2024 13:49:14 Morbid obesity 372545311 E66.01 LOSS of 53.1 lbs (22.8% of body weight)(st art 233.1 lbs Apr 09, body fat is 51.5% on ROSALBA scale --BMI 44.8 --> 35.1 --Malignan cy screen:Fam misty History:ad optedAssoc iation between obesity and various malignanci es explained. Importance of being up to date with screening emphasized .Fariha reports three and thinks she goes every five years, says most recent was 2022 or reast 2016, bilateral breast 28 February, mammogram without suspicious findingsGy nShe reports still having pap smears every two yearsPulmo narypulmon kamron nodule being monitored --Comorbid ities/Cont ributing Factors:Ob esogenic meds:none significan t Prediabete sHTNDyslpi demiaCKD 3bCADhisto ry of TIAGERou tDJDlumbar radiculopa thy areas to interven / follow:1) motivation al interviewi ng2) diet3) exercise, chronic pain4) insulin resistance 5) dyspnea, htn, ckd, cad6) micronutri ent status7) Anti Obesity Medication s / medication s associated with weight loss:--non e --glp1 best option with her comorbidit ies--if/wh en needed, consider topiramate , contrave-- possibly an sglt2 if has proteinuri a 60 minutes; reviewing records, gathering history, assessing status of chronic health conditions as relates to obesity, counseling : emotional, dietary, exercise Essential hypertension 09010363 I10 bp 97/63expla ined the antihypert ensives often need to be lessened with weight lossadvise d to discuss with primary or cardiology April 20P fell with weight loss, medication adjusted by primary team. Prediabetes 132383429 R7 3.03 --specific dietary interventi on--exerci se--metfor min not appropriat e with low gfr Chronic ki dney disease stage 3 864860246 N18.30 --urine malb elevated 29.4 (0-17) with normal alb:cr ratio--sta ble / improved gfr as of September 2023 Daytime somnolence 69596 00208 00 R40.0 improving --diet--ex ercise--me [facility] health--mi cronutrien ts Dyspnea on exertion 6084 5006 R06.09 improving with exercise and weight lossmultif actorial-- asthma--de conditioni ng / obesity--n ormal thallium stress Vitamin D deficiency 347 11085 E55.9 followed by primary June 194recomm end that she take vitamin D as prescribed by primary --> 40.16 Jul 2023 at Hematology Vitamin B1 2 deficiency (non anemic) 45913733 E53.8 monthly injections with Hematology Deficiency of micronutrients 433730510 E63.8 B12 - per HemeD - per primaryFol ic acid 4.17 April 2022 --> otc B complex with 200 mcg folic acid Erythrocytosis 169299433 D75.07 November 2021 Hgb /Hct mildly elevated 16.3/49.4, and RBC 5.7, all trending up, remaining lines upper end normal: WBC 10.4 plat 344mcv 87follows with Hematology , Dr Jerzy castaneda surveillance 514326863 Z71.3 We establishe d an individual ized dietary plan based on food preference , lifestyle, and attention to particular comorbidit ies. Each visit the following principles , with adaptation to the individual patient, are discussed: --Eat to satiety at each meal. Relearn body's cues: real hunger as opposed to desire to eat for other reasons; recognize the point when one is satisfied enough to stop eating.--N o eating between meals unless truly hungry.--N o eating after evening meal. Goal is a minimum of two hours, preferably three, of no food intake prior to bed.--[place] inate sugary beverages and those with artificial sweeteners .--Elimina te sugar and flour based foods.-- m for a large bowl of leafy greens and large bowl of cruciferou s vegetables each day (unless on a vka).--Car bohydrates will be vegetables , legumes, fruit, rather than starch, and eaten in reasonable quantities . Education during visit: regarding hyperinsul inemia, food as medicine, reasons calories in calories out approach often fails, etc. Understand ing the underlying physiology of hunger & satiety hormones and how/why sugar is toxic, often gives patients the motivation they need to make meaningful changes. April 204per HPI Lymphedema of lower extremity 435684001 I89.0 she's interested in a second course of decongesti ve therapy Chronic pain 71322049 G8 9.29 chronic low back pain--anti inflammato ry diet--exer cise /PT--weigh t loss Exercises education, guidance, and counseling 504347913 Z71.82 Educated regarding the toxicity of a sedentary lifestyle and thus, the beneficial effect of all forms of movement. Guidance is individual ized to the baseline activity level.--aq ua pt referral-- sign up for a Y so can start walking in a pool daily April 204per HPI [id number] Gricelda Gordon MD [facility] [employer] [address],[facility] [address] [place] [address] 08/03/2024 10:51:03 08/03/2024 12:17:27 Morbid obesity 253881390 E66.01 LOSS of 56.7 lbs (24.3% of body weight)(st art 233.1 lbs Apr 09, body fat is 51.5% on ROSALBA scale --BMI 44.8 --> 34.4 --Malignan cy screen:Fam misty History:ad optedAssoc iation between obesity and various malignanci es explained. Importance of being up to date with screening emphasized .Fariha reports three and thinks she goes every five years, says most recent was 2022 or reast 2016, bilateral breast [id number] 28 February, mammogram without suspicious findingsGy nShe reports still having pap smears every two yearsPulmo narypulmon kamron nodule being monitored --Comorbid ities/Cont ributing Factors:Ob esogenic meds:none significan t Prediabete sHTNDyslpi demiaCKD 3bCADhisto ry of [facility] tDJDlumbar radiculopa thy areas to interven / follow:1) motivation al interviewi ng2) diet3) exercise, chronic pain, dyspnea4) metabolic syndrome, liver fibrosis5) htn, ckd, cad, h/o tia6) micronutri ent status7) Anti Obesity Medication s / medication s associated with weight loss:--non e --glp1 best option with her comorbidit ies--if/wh en needed, consider topiramate , contrave-- possibly an sglt2 if has proteinuri a 60 minutes; reviewing records, gathering history, assessing status of chronic health conditions as relates to obesity, counseling : emotional, dietary, exercise Essential hypertension 99738174 I10 bp 97/63expla ined the antihypert ensives often need to be lessened with weight lossadvise d to discuss with primary or cardiology April 20P fell with weight loss, medication adjusted by primary team. Prediabetes 301095719 R7 3.03 --specific dietary interventi on--exerci se--metfor min not appropriat e with low gfr Chronic ki dney disease stage 3 911328448 N18.30 --urine malb elevated 29.4 (0-17) with normal alb:cr ratio--sta ble / improved gfr as of September 2023 Daytime somnolence 95407 54525 00 R40.0 improving --diet--ex ercise--me [facility] health--mi cronutrien ts Dyspnea on exertion 6084 5006 R06.09 improving with exercise and weight lossmultif actorial-- asthma--de conditioni ng / obesity--n ormal thallium stress Vitamin D deficiency 347 64986 E55.9 followed by primary June 194recomm end that she take vitamin D as prescribed by primary --> 40.16 Jul 2023 at Hematology Vitamin B1 2 deficiency (non anemic) 31660027 E53.8 monthly injections with Hematology Deficiency of micronutrients 032203357 E63.8 B12 - per HemeD - per primaryFol ic acid 4.17 April 2022 --> otc B complex with 200 mcg folic acid Erythrocytosis 325615545 D75.07 November 2021 Hgb /Hct mildly elevated 16.3/49.4, and RBC 5.7, all trending up, remaining lines upper end normal: WBC 10.4 plat 344mcv 87follows with Hematology , [facility] 713806521 Z71.3 We establishe d an individual ized dietary plan based on food preference , lifestyle, and attention to particular comorbidit ies. Each visit the following principles , with adaptation to the individual patient, are discussed: --Eat to satiety at each meal. Relearn body's cues: real hunger as opposed to desire to eat for other reasons; recognize the point when one is satisfied enough to stop eating.--N o eating between meals unless truly hungry.--N o eating after evening meal. Goal is a minimum of two hours, preferably three, of no food intake prior to bed.--[place] inate sugary beverages and those with artificial sweeteners .--Elimina te sugar and flour based foods.-- m for a large bowl of leafy greens and large bowl of cruciferou s vegetables each day (unless on a vka).--Car bohydrates will be vegetables , legumes, fruit, rather than starch, and eaten in reasonable quantities . Education during visit: regarding hyperinsul inemia, food as medicine, reasons calories in calories out approach often fails, etc. Understand ing the underlying physiology of hunger & satiety hormones and how/why sugar is toxic, often gives patients the motivation they need to make meaningful changes. August 03, 2024per HPI Lymphedema of lower extremity 216768981 I89.0 completed course of decongesti ve therapy Chronic pain 15753905 G8 9.29 chronic low back pain--anti inflammato ry diet--exer cise /PT--weigh t loss Exercises education, guidance, and counseling 303428818 Z71.82 Educated regarding the toxicity of a sedentary lifestyle and thus, the beneficial effect of all forms of movement. Guidance is individual ized to the baseline activity level.--aq ua pt referral-- sign up for a Y so can start walking in a pool daily August 03, 2024per HPI Hepatic fibrosis 4267974 2 K74.00 History of transient ischemic attack 552827821 Z86.73 [id number] Gricelda Gordon MD [facility] [address] [address] [place] [address] 10/28/2024 09:42:58 10/28/2024 11:19:55 Morbid obesity 900565119 E66.01 LOSS of 53.7 lbs (23% of body weight)(st art 233.1 lbs Apr 09, body fat is 51.5% on ROSALBA scale --BMI 44.8 --> 35 --Malignan cy screen:Fam misty History:ad optedAssoc iation between obesity and various malignanci es explained. Importance of being up to date with screening emphasized .Fariha reports three and thinks she goes every five years, says most recent was 2022 or reast 2016, bilateral breast [id number] 28 February, mammogram without suspicious findingsGy nShe reports still having pap smears every two yearsPulmo narypulmon kamron nodule being monitored --Comorbid ities/Cont ributing Factors:Ob esogenic meds:none significan t Prediabete sHTNDyslpi demiaCKD 3bCADhisto ry of TIAGERDGou tDJDlumbar radiculopa thy areas to interven / follow:1) motivation al interviewi ng2) diet3) exercise, chronic pain, dyspnea4) metabolic syndrome, liver fibrosis5) htn, ckd, cad, h/o tia6) micronutri ent status7) Anti Obesity Medication s / medication s associated with weight loss:--non e --glp1 best option with her comorbidit ies--if/wh en needed, consider topiramate , contrave-- possibly an sglt2 if has proteinuri a 45 minutes; reviewing records, gathering history, assessing status of chronic health conditions as relates to obesity, counseling : emotional, dietary, exercise Hepatic fibrosis 3903877 2 K74.00 Prediabetes 333196366 R7 3.03 --specific dietary interventi on--exerci se--metfor min not appropriat e with low gfr Essential hypertension 28043708 I10 bp 97/63expla ined the antihypert ensives often need to be lessened with weight lossadvise d to discuss with primary or cardiology April 20P fell with weight loss, medication adjusted by primary team. Chronic ki dney disease stage 3 909433835 N18.30 --urine malb elevated 29.4 (0-17) with normal alb:cr ratio--sta ble / improved gfr as of September 2023 History of transient ischemic attack 524219546 Z86.73 Daytime somnolence 48640 64056 00 R40.0 improving --diet--ex ercise--me [facility]--mi cronutrien ts Dyspnea on exertion 6084 5006 R06.09 improving with exercise and weight lossmultif actorial-- asthma--de conditioni ng / obesity--n ormal thallium stress Vitamin D deficiency 347 62437 E55.9 followed by primary June 194recomm end that she take vitamin D as prescribed by primary --> 40.16 Jul 2023 at Hematology Vitamin B1 2 deficiency (non anemic) 74908074 E53.8 monthly injections with Hematology October [id number] 442recentl y decreased frequency to every other month Deficiency of micronutrients 102692942 E63.8 B12 - per HemeD - per primaryFol ic acid 4.17 April 2022 --> otc B complex with 200 mcg folic acid Erythrocytosis 104875136 D75.07 November 2021 Hgb /Hct mildly elevated 16.3/49.4, and RBC 5.7, all trending up, remaining lines upper end normal: WBC 10.4 plat 344mcv 87follows with Hematology , Dr Wu Dietary [place] surveillance 981022519 Z71.3 We establishe d an individual ized dietary plan based on food preference , lifestyle, and attention to particular comorbidit ies. Each visit the following principles , with adaptation to the individual patient, are discussed: --Eat to satiety at each meal. Relearn body's cues: real hunger as opposed to desire to eat for other reasons; recognize the point when one is satisfied enough to stop eating.--N o eating between meals unless truly hungry.--N o eating after evening meal. Goal is a minimum of two hours, preferably three, of no food intake prior to bed.--[place] inate sugary beverages and those with artificial sweeteners .--Elimina te sugar and flour based foods.-- m for a large bowl of leafy greens and large bowl of cruciferou s vegetables each day (unless on a vka).--Car bohydrates will be vegetables , legumes, fruit, rather than starch, and eaten in reasonable quantities . Education during visit: regarding hyperinsul inemia, food as medicine, reasons calories in calories out approach often fails, etc. Understand ing the underlying physiology of hunger & satiety hormones and how/why sugar is toxic, often gives patients the motivation they need to make meaningful changes. October 28, 2024per HPI Lymphedema of lower extremity 706387055 I89.0 completed course of decongesti ve therapy Chronic pain 46462658 G8 9.29 chronic low back pain--anti inflammato ry diet--exer cise /PT--weigh t loss Exercises education, guidance, and counseling 931696697 Z71.82 Educated regarding the toxicity of a sedentary lifestyle and thus, the beneficial effect of all forms of movement. Guidance is individual ized to the baseline activity level.--aq ua pt referral-- sign up for a Y so can start walking in a pool daily October 28, 2024per HPI [id number] Gricelda Gordon MD [facility] [employer] [address] [place] [address] 02/08/2025 09:47:02 02/08/2025 11:04:54 Morbid obesity 017370594 E66.01 LOSS of 52.5 lbs (22.5% of body weight)(st art 233.1 lbs Apr 09, body fat is 51.5% on ROSALBA scale --BMI 44.8 --> 35.2 --Malignan cy screen:Fam misty History:ad optedAssoc iation between obesity and various malignanci es explained. Importance of being up to date with screening emphasized .Fariha reports three and thinks she goes every five years, says most recent was 2022 or reast 2016, bilateral breast [id number] 28 February, mammogram without suspicious findingsGy nShe reports still having pap smears every two yearsPulmo narypulmon kamron nodule being monitored --Comorbid ities/Cont ributing Factors:Ob esogenic meds:none significan t Prediabete sHTNDyslpi demiaCKD 3bCADhisto ry of TIAGERDGou tDJDlumbar radiculopa thy areas to interven / follow:1) motivation al interviewi ng2) diet3) exercise, chronic pain, dyspnea4) metabolic syndrome, liver fibrosis5) htn, ckd, cad, h/o tia6) micronutri ent status7) Anti Obesity Medication s / medication s associated with weight loss:--non e --glp1 best option with her comorbidit ies--if/wh en needed, consider topiramate , contrave-- possibly an sglt2 if has proteinuri a Hepatic fibrosis 1367236 2 K74.00 Prediabetes 986911663 R7 3.03 --specific dietary interventi on--exerci se--metfor min not appropriat e with low gfr Essential hypertension 33129427 I10 bp 97/63expla ined the antihypert ensives often need to be lessened with weight lossadvise d to discuss with primary or cardiology April 20P fell with weight loss, medication adjusted by primary team. Chronic ki dney disease stage 3 646197985 N18.30 --urine malb elevated 29.4 (0-17) with normal alb:cr ratio--sta ble / improved gfr as of September 2023 History of transient ischemic attack 540327928 Z86.73 Daytime somnolence 24544 75056 00 R40.0 improving --diet--ex ercise--[facility] health--mi cronutrien ts Dyspnea on exertion 6084 5006 R06.09 improving with exercise and weight lossmultif actorial-- asthma--de conditioni ng / obesity--n ormal thallium stress Vitamin D deficiency 347 73136 E55.9 followed by primary June 194recomm end that she take vitamin D as prescribed by primary --> 40.16 Jul 2023 at Hematology Vitamin B1 2 deficiency (non anemic) 44454032 E53.8 monthly injections with Hematology October 28 442recentl y decreased frequency to every other month February 08, 2025--> 433 November 2024 Deficiency of micronutrients 741303380 E63.8 B12 - per HemeD - per primaryFol ic acid 4.17 April 2022 --> otc B complex with 200 mcg folic acid Erythrocytosis 978665368 D75.07 November 2021 Hgb /Hct mildly elevated 16.3/49.4, and RBC 5.7, all trending up, remaining lines upper end normal: WBC 10.4 plat 344mcv 87follows with Hematology , [facility] Jer[facility] 770217035 Z71.3 We establishe d an individual ized dietary plan based on food preference , lifestyle, and attention to particular comorbidit ies. Each visit the following principles , with adaptation to the individual patient, are discussed: --Eat to satiety at each meal. Relearn body's cues: real hunger as opposed to desire to eat for other reasons; recognize the point when one is satisfied enough to stop eating.--N o eating between meals unless truly hungry.--N o eating after evening meal. Goal is a minimum of two hours, preferably three, of no food intake prior to bed.--[place] inate sugary beverages and those with artificial sweeteners .--Elimina te sugar and flour based foods.-- m for a large bowl of leafy greens and large bowl of cruciferou s vegetables each day (unless on a vka).--Car bohydrates will be vegetables , legumes, fruit, rather than starch, and eaten in reasonable quantities . Education during visit: regarding hyperinsul inemia, food as medicine, reasons calories in calories out approach often fails, etc. Understand ing the underlying physiology of hunger & satiety hormones and how/why sugar is toxic, often gives patients the motivation they need to make meaningful changes. February 08, 2025per HPI Lymphedema of lower extremity 919371761 I89.0 completed course of decongesti ve therapy Chronic pain 33892087 G8 9.29 chronic low back pain--anti inflammato ry diet--exer cise /PT--weigh t loss Exercises education, guidance, and counseling 587028620 Z71.82 Educated regarding the toxicity of a sedentary lifestyle and thus, the beneficial effect of all forms of movement. Guidance is individual ized to the baseline activity level.--aq ua pt referral-- sign up for a Y so can start walking in a pool daily February 08, 2025per HPI [id number] Gricelda Gordon MD [facility] [address] [place] [address] 05/11/2025 09:38:47 05/11/2025 11:08:31 Morbid obesity 844674576 E66.01 LOSS of 46.5 lbs (20% of body weight)(st art 233.1 lbs Apr 09, body fat is 51.5% on ROSALBA scale --BMI 44.8 --> 36.4 --Malignan cy screen:Fam misty History:ad optedAssoc iation between obesity and various malignanci es explained. Importance of being up to date with screening emphasized .Fariha reports three and thinks she goes every five years, says most recent was 2022 or reast 2016, bilateral breast [id number] 28 February, mammogram without suspicious findingsGy nShe reports still having pap smears every two yearsPulmo narypulmon kamron nodule being monitored --Comorbid ities/Cont ributing Factors:Ob esogenic meds:gabap entin Prediabete sHTNDyslpi demiaCKD 3bCADhisto ry of TIAGERDGou tDJDlumbar radiculopa thy areas to interven / follow:1) motivation al interviewi ng2) diet3) exercise, chronic pain, dyspnea4) metabolic syndrome, liver fibrosis5) htn, ckd, cad, h/o tia6) micronutri ent status7) Anti Obesity Medication s / medication s associated with weight loss:--non e --glp1 best option with her comorbidit ies--if/wh en needed, consider topiramate , contrave-- possibly an sglt2 if has proteinuri a Hepatic fibrosis [id number] 2 K74.00 Prediabetes [id number] R7 3.03 --specific dietary interventi on--exerci se--metfor min not appropriat e with low gfr Essential hypertension [id number] I10 bp 97/63expla ined the antihypert ensives often need to be lessened with weight lossadvise d to discuss with primary or cardiology April 20P fell with weight loss, medication adjusted by primary team. Chronic ki dney disease stage 3 [id number] N18.30 --urine malb elevated 29.4 (0-17) with normal alb:cr ratio--sta ble / improved gfr as of September 2023 History of transient ischemic attack [id number] Z86.73 Daytime somnolence [id number] 00 R40.0 improving --diet--ex ercise--me tabolic health--mi cronutrien ts Dyspnea on exertion 6084 5006 R06.09 improving with exercise and weight lossmultif actorial-- asthma--de conditioni ng / obesity--n ormal thallium stress Vitamin D deficiency [id number] 16788 E55.9 followed by primary June 194recomm end that she take vitamin D as prescribed by primary --> 40.16 Jul 2023 at Hematology Vitamin B1 2 deficiency (non anemic) 11490861 E53.8 monthly injections with Hematology October 2812 442recentl y decreased frequency to every other month February 08, 2025--> 433 November 2024 Deficiency of micronutrients 278940830 E63.8 B12 - per HemeD - per primaryFol ic acid 4.17 April 2022 --> otc B complex with 200 mcg folic acid Erythrocytosis 693572618 D75.07 November 2021 Hgb /Hct mildly elevated 16.3/49.4, and RBC 5.7, all trending up, remaining lines upper end normal: WBC 10.4 plat 344mcv 87follows with Hematology , Dr Wu Dietary ma nagcony surveillance [id number] Z71.3 We establishe d an individual ized dietary plan based on food preference , lifestyle, and attention to particular comorbidit ies. Each visit the following principles , with adaptation to the individual patient, are discussed: --Eat to satiety at each meal. Relearn body's cues: real hunger as opposed to desire to eat for other reasons; recognize the point when one is satisfied enough to stop eating.--N o eating between meals unless truly hungry.--N o eating after evening meal. Goal is a minimum of two hours, preferably three, of no food intake prior to bed.--[place] inate sugary beverages and those with artificial sweeteners .--Elimina te sugar and flour based foods.-- m for a large bowl of leafy greens and large bowl of cruciferou s vegetables each day (unless on a vka).--Car bohydrates will be vegetables , legumes, fruit, rather than starch, and eaten in reasonable quantities . Education during visit: regarding hyperinsul inemia, food as medicine, reasons calories in calories out approach often fails, etc. Understand ing the underlying physiology of hunger & satiety hormones and how/why sugar is toxic, often gives patients the motivation they need to make meaningful changes. May 11, 2025per HPI Lymphedema of lower extremity [id number] I89.0 completed course of decongesti ve therapy Chronic pain 55708973 G8 9.29 chronic low back pain--anti inflammato ry diet--exer cise /PT--weigh t loss Exercises education, guidance, and counseling [id number] Z71.82 Educated regarding the toxicity of a sedentary lifestyle and thus, the beneficial effect of all forms of movement. Guidance is individual ized to the baseline activity level.--aq ua pt referral-- sign up for a Y so can start walking in a pool daily May 11, 2025per HPI Health Concerns Section Related Observation LastModified by Organization Detai ls LastModified Time None Recorded Concern Status LastModified by Organization Details LastModified Time None Recorded Advance Directives Directive N: Payers Insurance Date Sequence Insurance Name Policy Number Policy Vu Covered Member ID Vu Member ID Guarantor Name 05/09/2025 [place] [facility] Susie Matias Penny [id number] Susie Lara Penny 05/09/2025 1 [place] Susie Francis [id number] Susie Francis 05/09/2025 2 [facility] Susie Francis [id number] Susie Francis Notes Date Note Type Note Provider Name and Address Organization Details Recorded Time 2023 text/h tml ROS as noted in the HPI 77 year old with class III obesity BMIComorbidities include Prediabetes, HTN, Dyslipidemia, CKD 3b, history of TIA, GERD, Gout, DJD, lumbar radiculopathy Other diagnoses:--overactive bladder--No nephrolithiasis--No history of pancreatitis--No glaucoma, reports regular eye exams Family Historyadopted, no knowledge We appreciate the referral from Dr Moe. TODAY's visit we addressed: 1) diet2) exercise: chronic pain/balance/dyspnea3) htn, cad, ckd4) prediabetes5) weight loss medication options6) micronutrients loss of 3.4 lbs in three and a half months, total loss 53.1 lbs Ms Francis's weight continues to trend downward.I've donated all of my old clothes to a confucianist.My stamina is better. I'm able to do more. At our September 2023 visit, we discussed importance of being active in some way every day of the week rather than just on the two PT days.At our December visit, activity level had picked up.I can tell that I'm getting stronger and can go a little farther.I walked in the mall when my daughter was visiting. She's able to walk about 5 mins, then stops to rest due to low back pain.One area of concern is her poor balance -- I can tell that I'm getting a little better in that too.She does still have a fear of falling and, unfortunately, fell about a month ago after tripping on a rug in her room. Thankfully no serious injury -- just bruised up.Todayno further falls exercise:--short periods of walking, always brings cane just in case but doesn't always use it--no further water work outs as she transitioned from Aqua PT to outdoor pool but it's now too cold--there is some exercise with lymphedema clinic treatment but that recently endedPLAN--discussed ways to safely increase time and frequency of walking andencouraged her to resume Aqua PT as pain is still the activity limiting factor and she benefited from the prior course of Aqua PT diet recall:6-8 wakeno breakfast protein shakesnack nothing -1 lunch chicken wrap OR Renny's chickensnack pickle, fruit or protein shake5 dinner protein salad/veggiedessert/snack cottage cheese w/ pineapple + peachdrinks water, zero coke, rare difmmkl23-3 sleepPLANprinciples reviewedspecific suggestions made, reminded ok to have lone protein shake but if wants fruit, must be paired with protein cadJune 2022 visit with primary md notes CAC score of 5297.Thallium stress was unremarkable.An echo, completed Jun 16 2023 to further evaluate dyspnea and elevated CAC score, showed a normal ef 59% with cLVH, grade II diastolic dysfunction, and elevated LAP.July 31 2023 cardiology follow up:Patient presents to office today with concerns regarding her calcium score an need for cath. She does not have chest pain but does have some shortness of breath, last cr slightly elevated. Repeat NST was unremarkable.December 18 2023 cardiology follow up:c/o lower ext edema,doppler was technically difficult due to edema, pain -compromised study therefore non-occlusive deep venousthrombosis cannot be excluded in the right posterior tibial and peroneal veins ; evidence of venous refluxbp 86/54, asymptomaticJuly primary md follow upbp 102/60 and she c/o easy bruisingspironolactone decreased to 25 mg once daily and plavix (had been on for decades post tia) --> to aspirin 81 mgAt our December visit, confirmed same--denies sob with exertion that is out of proportion to expected, it's less than it used to be--c/o lower extremity edema that improves with elevation and I always do that at homeonly wears compression stockings on days doesn't leave house; but, most days does go somewherefour or five years ago completed a course of lymphedema decongestive therapy--bp 97/63 is asymptomaticshe says that bb was replaced with arbTodaysays dyspnea is same, maybe a bit betterI referred her for a course of lymphedema decongestive therapywas going twice weekly, recently discharged due to diagnosed with pedal fungal infectionbut I did really well, my legs feel better and I'm wearing shoes that I couldn't wear before At our prior two visits, bp on lower side.At her March visit with primary, bp 100/60, described lightheadedness on standing, chlorthalidone stopped.Ydlta809/78, no lightheadedness A1c6.3 --> 6.1 --> 5.09 August 2022 --> 5.12 September 2023 ckd IIIcr: 1.25 --> 1.35 --> 1.November --> 1.138 March 2023 -->1.0 September 2023urinemalb elevated 29.4 (0-17), ratio is wnl 16.2 2022vit d 67gluc 103 k 4.7 cr 1.138 gfr 47 bicarb 27 ca 10.1 alb 3.8 alt 40 ast 30hgb 15.1fe 120 ferritin 225 percent sat 41 2023A1c 5.5Tchol 123 Trig 114 hdl 57 ldl 43Hgb 12.8 mcv 97 rdw 14.2gluc 88 cr 1.0 gfr 54.7 bicarb 26 ca 9.5 alb 4.1 alt 14 ast 16total protein low 6.0urine malb elevated 29.4 (0-17) 2023glug 89 cr 1.1 gfr 49.2 bicarb 22 ca 9.1 alb 4.4 micronutrientssee A/P ROS April 20N cp w exertionY dawson, lesseningN pndN palpitationsN syncopeN melenaN dysphagiaN reflux Obesity related PMH: PREDIABETESwas diagnosed within the past two years. CKD 3bGFR in the 40s trending slightly downward past two years CARDIOVASCULARShe has a plethora of cardiovascular risk factors as well as reported remote TIA.Work up she remembers is a nuc med stress sometime before covid, because I was having chest pain. It came back fine.She reports a diagnosis of lymphedema --treatment at lymphedema clinic in 2018 and again this year, ending in December. MUSCULOSKELETALShe has chronic low back pain for years. She describes ESIs every three months.She's not sure but believes that she could walk for about ten minutes if necessary.She has some knee pain but it's not activity limiting.2007 s/p arthroscopic surgery right knee GYNCycles were generally regular. No hirsutism.acneHistory is is not suggestive of PCOS SLEEPStop Bang score is 4 answers yes to daytime somnolence, no to loud snoring, no to witnessed apnea DIET/EXERCISEDiet is poor, full of processed sugar, fast food: B usually none but might have a chocolate or blueberry muffin and hot chocolatedrinks crystal lite throughout the zfdoxhg69:00 L usually first meal: Arby's or Popeyes chicken sandwich OR fried chicken and mashed potatoessnack: anabaptist granola bar6:00 D grilled protein, microwave mashed potatoes, corn or peas, or broccoli, cauliflowerafter dinner: anabaptist granola or a bowl of cocktail peanutsI rarely eat chips. I'm not supposed to eat salt.beverages: most of the time crystal lite, sweet tea at lunch, sometimes daina clint, or sprite exerciseNone. Activity is curtailed with back pain.She goes to grocery shop, or medical appointments. Sometimes she'll go out to lunchShe used to go to a pool. ROS Initial VisitY hematuria, recent episode, I went to my [employer] and she's checking into it and gave me some medicine -- ? uti At her September 04 primary md visit:she complained of intermittent paresthesias lower legs as well as cramps in hands and legs that are worse at night. The amount of gabapentin she takes causes somnolence.Simvastatin was held and mag oxide started. She feels that these changes have helped. SOFSH8e5.3 August36.1 November.3 August.15 September 2020 Cr1.27 August30.98 May.21 Feb.37 November.35 September.03 Jul 20192021microalbumin <30uric acid 5.3Hgb /Hct mildly elevated 16.3/49.4, and RBC 5.7, all trending up, remaining lines upper end normal: WBC 10.4 plat 344mcv 87gluc 1.37cr 1.37 bicarb 26 ca 10 alb 4.2 ALT 41Tchol 183 Trig 100 HDL54 LDL 111 INITIAL WEIGHT HISTORYMs Francis is a since 2007, was for forty two years. She is hearing impaired.She is a never smoker, drinks occasional alcoholic beverages, does not use marijuana. 2021September 04 232.4 [id number] Feb 18 232.2 [id number] Apr 09 233.1 Gricelda Gordon MD [address] [facility], [place], [address], [facility] 06/10/2024 15:27:27 2024 text/h tml ROS as noted in the HPI 77 year old with class III obesity BMIComorbidities include Prediabetes, HTN, Dyslipidemia, CKD 3b, history of TIA, GERD, Gout, DJD, lumbar radiculopathy Other diagnoses:--overactive bladder--No nephrolithiasis--No history of pancreatitis--No glaucoma, reports regular eye exams Family Historyadopted, no knowledge We appreciate the referral from Dr Moe. TODAY's visit we addressed: 1) diet2) exercise: chronic pain/balance/dyspnea3) liver fibrosis, prediabetes --metabolic syndrome4) htn, cad, ckd, h/o tia5) weight loss medication options6) micronutrients loss of 3.6 lbs in three and a half months, total loss 56.7 lbs At our April 2024 visit, weight was down another few lbs, continuing the downward trend.I've donated all of my old clothes to a confucianist.My stamina is better. I'm able to do more.Todaycontinues positive course, notices a little improvement in strength and balance with increase in exercise At our September 2023 visit, we discussed importance of being active in some way every day of the week rather than just on the two PT days.At our December visit, activity level had picked up.I can tell that I'm getting stronger and can go a little farther.I walked in the mall when my daughter was visiting. She's able to walk about 5 mins, then stops to rest due to low back pain.One area of concern is her poor balance -- I can tell that I'm getting a little better in that too.confirms that her home has been inspected to trip hazardsAt our April visit, there were no further falls and she agreed to a course of PT. chronic painfollow up with Pain Management Jun 17 with SHERIE and recommendation of physical therapyTodayreports, it helps for five or six weeks, then it wears off the last couple weeks before I go again, I go every two months follow up with primary, June 29c/o chronic pain, most bothersome when recumbent - cervical spondylosis - advised to wear a soft neck collar exercise:started a course of Aqua/land PT on June going three times per weekPLANwill add walking on her non PT days: three times per day, 5-mins each at 2024 visit with Pulmonology for moderate persistent asthmawas assessed as doing well, meds continued, 6 min walk test and pfts orderedTodaymy doctor said my lung capacity is getting better liver fibrosisultrasound / fibroscan 2022: F2-3 fibrosis as well as nodular surface c/w cirrhosisultrasound 2023May 13 showed fatty liver as well as coarse echotexture, nodular surface compatible with cirrhosisdiscussion with Dr Ho has been that since platelets/labs do not suggest cirrhosis, they will continue with q 6 month u/s and afp, and she is to continue her weight loss efforts diet recall:snacks with fruit are paired with cheese for protein6--8 wakeno specific time (maybe after 9) breakfast protein drinksnack crackers + pb or apple, pineapple/peaches + cheese (usually has snack in afternoon)10-1 lunch Kinjal's chicken wrap OR Chick Blaze A adams saladsnack crackers + pb or apple, pineapple/peaches + cheese5-7 dinner Kinjal's salad OR veggies + chicken/pork chop/hamburgerdessert/snack crackers + pb or apple, pineapple/peaches + cheesedrinks water, zero coke, sugar free daina clint, rare [id number] sleepPLANprinciples reviewedtry to eliminate ultra processed items like snack crackersreminded that fruit is ok but with the fatty liver, it needs to be a small quantity and never in isolation --if wants fruit, it must be paired with protein and she should eat the protein firstwill target minimum of 80 grams protein per day to help with satiety - lessen need to snack cad, dsypnea, le edema/lymphedemaJune 2022 visit with primary md notes CAC score of 5297.Thallium stress was unremarkable.An echo, completed Jun 16 2023 to further evaluate dyspnea and elevated CAC score, showed a normal ef 59% with cLVH, grade II diastolic dysfunction, and elevated LAP.July 31 2023 cardiology follow up:Patient presents to office today with concerns regarding her calcium score an need for cath. She does not have chest pain but does have some shortness of breath, last cr slightly elevated. Repeat NST was unremarkable.December 18 2023 cardiology follow up:c/o lower ext edema,doppler was technically difficult due to edema, pain -compromised study therefore non-occlusive deep venousthrombosis cannot be excluded in the right posterior tibial and peroneal veins ; evidence of venous refluxbp 86/54, asymptomaticJuly primary md follow upbp 102/60 and she c/o easy bruisingspironolactone decreased to 25 mg once daily and plavix (had been on for decades post tia) --> to aspirin 81 mgAt our December visit, confirmed same--denies sob with exertion that is out of proportion to expected, it's less than it used to be--c/o lower extremity edema that improves with elevation and I always do that at homeonly wears compression stockings on days doesn't leave house; but, most days does go somewherefour or five years ago completed a course of lymphedema decongestive therapy--bp 97/63 is asymptomaticshe says that bb was replaced with arbAt our April visitsays dyspnea is same, maybe a bit betterI referred her for a course of lymphedema decongestive therapywas going twice weekly, recently discharged due to diagnosed with pedal fungal infectionbut I did really well, my legs feel better and I'm wearing shoes that I couldn't wear beforeTodaydyspnea has been slowly lesseningwearing compression stockings but only on days does not go to PT, swelling continues to be much improved At our prior two visits, bp on lower side.At her March visit with primary, bp 100/60, described lightheadedness on standing, chlorthalidone stopped.At our April /78, no lightheadednessfollow up with primary, June 29 bp 114/66, no medication changesbp fine in office today 109/69, no symptoms A1c6.3 --> 6.1 --> 5.09 August 2022 --> 5.12 September 2023 ckd IIIcr: 1.25 --> 1.35 --> 1.November --> 1.138 March 2023 -->1.September --> 1.16 Jun 2024urinemalb elevated 29.4 (0-17), ratio is wnl 16.2 2022vit d 67gluc 103 k 4.7 cr 1.138 gfr 47 bicarb 27 ca 10.1 alb 3.8 alt 40 ast 30hgb 15.1fe 120 ferritin 225 percent sat 41 2023A1c 5.5Tchol 123 Trig 114 hdl 57 ldl 43Hgb 12.8 mcv 97 rdw 14.2gluc 88 cr 1.0 gfr 54.7 bicarb 26 ca 9.5 alb 4.1 alt 14 ast 16total protein low 6.0urine malb elevated 29.4 (0-17) 2023glug 89 cr 1.1 gfr 49.2 bicarb 22 ca 9.1 alb 4.4 micronutrientssee A/P ROS August 03N cp w exertionY dawson, lesseningN pndN palpitationsN syncopeN melenaN dysphagiaN reflux Obesity related PMH: PREDIABETESwas diagnosed within the past two years. 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 It came back fine.She reports a diagnosis of lymphedema --treatment at lymphedema clinic in 2018 and again this year, ending in December. MUSCULOSKELETALShabel has chronic low back pain for years. She describes ESIs every three months.She's not sure but believes that she could walk for about ten minutes if necessary.She has some knee pain but it's not activity limiting.2008 s/p arthroscopic surgery right knee GYNCycles were generally regular. No hirsutism.acneHistory is is not suggestive of PCOS SLEEPStop Bang score is 4 answers yes to daytime somnolence, no to loud snoring, no to witnessed apnea DIET/EXERCISEDiet is poor, full of processed sugar, fast food: B usually none but might have a chocolate or blueberry muffin and hot chocolatedrinks crystal lite throughout the gmiscoo51:00 L usually first meal: Arby's or Popeyes chicken sandwich OR fried chicken and mashed potatoessnack: anabaptist granola bar6:00 D grilled protein, microwave mashed potatoes, corn or peas, or broccoli, cauliflowerafter dinner: anabaptist granola or a bowl of cocktail peanutsI rarely eat chips. I'm not supposed to eat salt.beverages: most of the time crystal lite, sweet tea at lunch, sometimes daina clint, or sprite exerciseNone. Activity is curtailed with back pain.She goes to grocery shop, or medical appointments. Sometimes she'll go out to lunchShe used to go to a pool. ROS Initial VisitY hematuria, recent episode, I went to my [employer] and she's checking into it and gave me some medicine -- ? uti At her September 04 primary md visit:she complained of intermittent paresthesias lower legs as well as cramps in hands and legs that are worse at night. The amount of gabapentin she takes causes somnolence.Simvastatin was held and mag oxide started. She feels that these changes have helped. DBFJG0a8.3 August36.1 November.3 August.15 September 2020 Cr1.27 August30.98 May.21 Feb.37 November.35 September.03 Jul 20192022 Octobervit d 67gluc 103 k 4.7 cr 1.138 gfr 47 bicarb 27 ca 10.1 alb 3.8 alt 40 ast 30hgb 15.1fe 120 ferritin 225 percent sat 41 2023A1c 5.5Tchol 123 Trig 114 hdl 57 ldl 43Hgb 12.8 mcv 97 rdw 14.2gluc 88 cr 1.0 gfr 54.7 bicarb 26 ca 9.5 alb 4.1 alt 14 ast 16total protein low 6.0urine malb elevated 29.4 (0-17) 2023glug 89 cr 1.1 gfr 49.2 bicarb 22 ca 9.1 alb 4.4 2021microalbumin <30uric acid 5.3Hgb /Hct mildly elevated 16.3/49.4, and RBC 5.7, all trending up, remaining lines upper end normal: WBC 10.4 plat 344mcv 87gluc 1.37cr 1.37 bicarb 26 ca 10 alb 4.2 ALT 41Tchol 183 Trig 100 HDL54 LDL 111 INITIAL WEIGHT HISTORYMs Francis is a since 2007, was for forty two years. She is hearing impaired.She is a never smoker, drinks occasional alcoholic beverages, does not use marijuana. 2021September 04 232.4 [id number] Feb 18 232.2 [id number] Apr 09 233.1 Gricelda Gordon MD [address] [facility] [address], [place], [address], [facility] 08/15/2024 20:44:55 2024 text/h tml ROS as noted in the HPI 77 year old with class III obesity BMIComorbidities include Prediabetes, HTN, Dyslipidemia, CKD 3b, history of TIA, GERD, Gout, DJD, lumbar radiculopathy Other diagnoses:--overactive bladder--No nephrolithiasis--No history of pancreatitis--No glaucoma, reports regular eye examsmost recently September 16, 2024 with Sharri Shanksyaneth Family Historyadopted, no knowledge We appreciate the referral from Dr Moe. TODAY's visit we addressed: 1) diet2) exercise: chronic pain/balance/dyspnea3) liver fibrosis, prediabetes --metabolic syndrome4) htn, cad, ckd, h/o tia5) weight loss medication options6) micronutrients gain of 3 lbs in three monthsin setting ofdiet and exercise routine disrupted with cardiac work up At our April 2024 visit, weight was down another few lbs, continuing the downward trend.I've donated all of my old clothes to a confucianist.My stamina is better. I'm able to do more.Todaycontinues positive course, notices a little improvement in strength and balance with increase in exercise At our September 2023 visit, we discussed importance of being active in some way every day of the week rather than just on the two PT days.At our December visit, activity level had picked up.I can tell that I'm getting stronger and can go a little farther.I walked in the mall when my daughter was visiting. She's able to walk about 5 mins, then stops to rest due to low back pain.One area of concern is her poor balance -- I can tell that I'm getting a little better in that too.confirms that her home has been inspected to trip hazards At our April 2024 visit, there were no further falls and she agreed to a course of PT. At our July 2024 visit, weight down another 3.4 lbs. Since then--September 07 cardiology follow upHer elevated calcium score and the presence of a Q wave and T inversion in the inferior leads on her EKG, which are new findings compared to previous EKGs, suggest the potential development of silent myocardial damage or infarction in the inferior region of her heart. Her dyspnea could be indicative of underlying coronary artery disease or ischemia. Previous stress tests have yielded negative results. A cardiac catheterization will be scheduled at [facility] within the next few weeks to further investigate the possibility of arterial blockages.--September 17cat--October 22 cardiology follow upcath showed moderate nonobstructive disease cadsymptom freecontinue aspirin, statin, anti hypertensivesreview of studies:--elevated calcium score 09/2022 [facility]: 5297--negative NST 10/2022 and 08/2023--cath 09/2024: 40% distal LM, LAD mid 40%, patent diag, LCx OM 30-40% ostial, RCA patentremote history of tia, previously treated with aspirin and plavix, and subsequently plavix only At appointment with cardiology, she reported difficulty speaking, specifically coming up with wordsMay 2024evaluated for speech and memory difficulties by Neurologist, Dr Stuart/w mild cognitive disorder but, given her cardiovascular disease and h/o TIA and recent onset of symptoms, will be evaluated for intracranial etiologiesorders placed for labs, brain mri, referral for neuropsych testing, and return to office for neurotrax testing Octoberreports--mri this afternoon and then next week will have a telehealth to review mri and neurosych testing results--only one of the labs was abnormal so I'm going to see my Swaging Machine Operator where I go for my B12 shots follows with Pain Management from chronic low back pain associated with:lumber spondylosis, lumbar facet arthropathys/p first radio frequency ablation treatment OctoberIt's been good. I can tell a difference.When I go back in two months, I'll have the steroid injection. They'll alternate every two months, either the ablation - if I need it again - the the steroid. exercisereferred for a second round of PT for low back pain, weakness, poor balancelast session was September 16, day prior to :I haven't really been doing the home therapy exercisesbut, walking has been good, I don't use my cane anymore. I [facility] walk [facility] parking lot[facility] all the way back to the electronic dept to medicinal plant picker my pictures and I don't use a cart but she doesn't walk unless has a specific reason toPLANresume another course of twice weekly PTremaining days walk three to four times per day for 5 to 6 mins each timd blood pressurehas been generally trending down with weight lossAt her March visit with primary, bp 100/60, described lightheadedness on standing, chlorthalidone stopped.At our April /78, no lightheadednessfollow up with primary, June 29 bp 114/66, no medication changesAt our July 2024 visit, 109/69, no cbsohqajJqnfd52/65 diet recall:6-8 wake9:30-10 breakfast protein shakesnack efuvinf80-4 lunch chicken wrapsnack nothing usually, maybe crackers (low sodium Ritz) + peanut butter5-7 dinner salad OR pork chop/chicken/hamburger (occasional)/spaghetti + veggiedessert/snack frozen fruit, crackers + peanut butterdrinks water, diet daina clint (if upset stomach), zero coke, usually no alcohol (just on trips)12-2 sleepPLANspecific changes reviewed, for example for Ritz genesis start formally tracking protein and aim for ~ 70 to 80 grams per day A1c6.3 --> 6.1 --> 5.09 August 2022 --> 5.12 September 2023 ckd IIIcr: 1.25 --> 1.35 --> 1.November --> 1.138 March 2023 -->1.September --> 1.24 Jun 2024 --> 1.0 September 2024urinemalb elevated 29.4 (0-17), ratio is wnl 16.2 2022vit d 67gluc 103 k 4.7 cr 1.138 gfr 47 bicarb 27 ca 10.1 alb 3.8 alt 40 ast 30hgb 15.1fe 120 ferritin 225 percent sat 41 2023 HvymmJ3i 5.5Tchol 123 Trig 114 hdl 57 ldl 43Hgb 12.8 mcv 97 rdw 14.2gluc 88 cr 1.0 gfr 54.7 bicarb 26 ca 9.5 alb 4.1 alt 14 ast 16total protein low 6.0urine malb elevated 29.4 (0-17) 2023glug 89 cr 1.1 gfr 49.2 bicarb 22 ca 9.1 alb 4.4 micronutrientssee A/P ROS October 28N cp w exertionY dawson, lesseningN pndN palpitationsN syncopeN melenaN dysphagiaN reflux July 14ad, dyspnea, le edema/lymphedemaJune 2022 visit with primary md notes CAC score of 5297.Thallium stress was unremarkable.An echo, completed Jun 16 2023 to further evaluate dyspnea and elevated CAC score, showed a normal ef 59% with cLVH, grade II diastolic dysfunction, and elevated LAP.July 31 2023 cardiology follow up:Patient presents to office today with concerns regarding her calcium score an need for cath. She does not have chest pain but does have some shortness of breath, last cr slightly elevated. Repeat NST was unremarkable.December 18 2023 cardiology follow up:c/o lower ext edema,doppler was technically difficult due to edema, pain -compromised study therefore non-occlusive deep venousthrombosis cannot be excluded in the right posterior tibial and peroneal veins ; evidence of venous refluxbp 86/54, asymptomaticJuly primary md follow upbp 102/60 and she c/o easy bruisingspironolactone decreased to 25 mg once daily and plavix (had been on for decades post tia) --> to aspirin 81 mgAt our December visit, confirmed same--denies sob with exertion that is out of proportion to expected, it's less than it used to be--c/o lower extremity edema that improves with elevation and I always do that at homeonly wears compression stockings on days doesn't leave house; but, most days does go somewherefour or five years ago completed a course of lymphedema decongestive therapy--bp 97/63 is asymptomaticshabel says that bb was replaced with arbAt our April visitsays dyspnea is same, maybe a bit betterI referred her for a course of lymphedema decongestive therapywas going twice weekly, recently discharged due to diagnosed with pedal fungal infectionbut I did really well, my legs feel better and I'm wearing shoes that I couldn't wear beforeTodaydyspnea has been slowly lesseningwearing compression stockings but only on days does not go to PT, swelling continues to be much improved Obesity related PMH: PREDIABETESwas diagnosed within the past two years. 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 It came back fine.She reports a diagnosis of lymphedema --treatment at lymphedema clinic in 2019 and again this year, ending in December. MUSCULOSKELETALSamanta has chronic low back pain for years. She describes ESIs every three months.She's not sure but believes that she could walk for about ten minutes if necessary.She has some knee pain but it's not activity limiting.2008 s/p arthroscopic surgery right knee GYNCycles were generally regular. No hirsutism.acneHistory is is not suggestive of PCOS SLEEPStop Bang score is 4 answers yes to daytime somnolence, no to loud snoring, no to witnessed apnea DIET/EXERCISEDiet is poor, full of processed sugar, fast food: B usually none but might have a chocolate or blueberry muffin and hot chocolatedrinks crystal lite throughout the oifelht19:00 L usually first meal: Arby's or Popeyes chicken sandwich OR fried chicken and mashed potatoessnack: anabaptist granola bar6:00 D grilled protein, microwave mashed potatoes, corn or peas, or broccoli, cauliflowerafter dinner: anabaptist granola or a bowl of cocktail peanutsI rarely eat chips. I'm not supposed to eat salt.beverages: most of the time crystal lite, sweet tea at lunch, sometimes daina clint, or sprite exerciseNone. Activity is curtailed with back pain.She goes to grocery shop, or medical appointments. Sometimes she'll go out to lunchShe used to go to a pool. ROS Initial VisitY hematuria, recent episode, I went to my Zyglo Inspector and she's checking into it and gave me some medicine -- ? uti At her September 04 primary md visit:she complained of intermittent paresthesias lower legs as well as cramps in hands and legs that are worse at night. The amount of gabapentin she takes causes somnolence.Simvastatin was held and mag oxide started. She feels that these changes have helped. DJEBN0i5.3 August.1 November.3 August.15 September 2020 Cr1.27 August.98 May.21 Feb.37 November.35 September.03 Jul 20192022 Octobervit d 67gluc 103 k 4.7 cr 1.138 gfr 47 bicarb 27 ca 10.1 alb 3.8 alt 40 ast 30hgb 15.1fe 120 ferritin 225 percent sat 41 2023A1c 5.5Tchol 123 Trig 114 hdl 57 ldl 43Hgb 12.8 mcv 97 rdw 14.2gluc 88 cr 1.0 gfr 54.7 bicarb 26 ca 9.5 alb 4.1 alt 14 ast 16total protein low 6.0urine malb elevated 29.4 (0-17) 2023glug 89 cr 1.1 gfr 49.2 bicarb 22 ca 9.1 alb 4.4 2021microalbumin <30uric acid 5.3Hgb /Hct mildly elevated 16.3/49.4, and RBC 5.7, all trending up, remaining lines upper end normal: WBC 10.4 plat 344mcv 87gluc 1.37cr 1.37 bicarb 26 ca 10 alb 4.2 ALT 41Tchol 183 Trig 100 HDL54 LDL 111 INITIAL WEIGHT HISTORYMs Francis is a since 2007, was for forty two years. She is hearing impaired.She is a never smoker, drinks occasional alcoholic beverages, does not use marijuana. 2021September 04 232.4 [id number] Feb 18 232.2 [id number] Apr 09 233.1 Gricelda Gordon MD [address], [place], [address], [facility] 10/31/2024 22:15:31 2024 text/h tml ROS as noted in the HPI 77 year old with class III obesity BMIComorbidities include Prediabetes, HTN, Dyslipidemia, CKD 3b, history of TIA, GERD, Gout, DJD, lumbar radiculopathy Other diagnoses:--overactive bladder--No nephrolithiasis--No history of pancreatitis--No glaucoma, reports regular eye examsmost recently September 16, 2024 with Sharri Pradhan Family Historyadopted, no knowledge We appreciate the referral from Dr Moe. TODAY's visit we addressed: 1) diet2) exercise: chronic pain/balance/dyspnea3) liver fibrosis, prediabetes --metabolic syndrome4) htn, cad, ckd, h/o tia5) weight loss medication options6) neurology evalutation for memory - unremarkable7) hematology follow up8) micronutrients gain of 1.2 lb in thirteen weeks At our April 2024 visit, weight was down another few lbs, continuing the downward trend.I've donated all of my old clothes to a confucianist.My stamina is better. I'm able to do more.Todaycontinues positive course, notices a little improvement in strength and balance with increase in exercise At our September 2023 visit, we discussed importance of being active in some way every day of the week rather than just on the two PT days.At our December visit, activity level had picked up.I can tell that I'm getting stronger and can go a little farther.I walked in the mall when my daughter was visiting. She's able to walk about 5 mins, then stops to rest due to low back pain.One area of concern is her poor balance -- I can tell that I'm getting a little better in that too.confirms that her home has been inspected to trip hazards At our April 2024 visit, there were no further falls and she agreed to a course of PT. At our July 2024 visit, weight down another 3.4 lbs. Since then:--September 07 2024 cardiology follow upHer elevated calcium score and the presence of a Q wave and T inversion in the inferior leads on her EKG, which are new findings compared to previous EKGs, suggest the potential development of silent myocardial damage or infarction in the inferior region of her heart. Her dyspnea could be indicative of underlying coronary artery disease or ischemia. Previous stress tests have yielded negative results. A cardiac catheterization will be scheduled at [facility] within the next few weeks to further investigate the possibility of arterial blockages.--September--October 22 cardiology follow upcath showed moderate nonobstructive disease cadsymptom freecontinue aspirin, statin, anti hypertensivesreview of studies:elevated calcium score 09/2022 [facility]: 5297negative NST 10/2022 and 4cath 09/2024: 40% distal LM, LAD mid 40%, patent diag, LCx OM 30-40% ostial, RCA patentremote history of tia, previously treated with aspirin and plavix, and subsequently plavix only evaluated for speech and memory difficulties by Neurologist, Dr Lomax 2024 appointment with cardiology, she reported difficulty speaking, specifically coming up with words, referred to NeurologyDr Monie's assessment:c/w mild cognitive disorder but, given her cardiovascular disease and h/o TIA and recent onset of symptoms, will be evaluated for intracranial etiologiesorders placed for labs, brain mri, referral for neuropsych testing, and return to office for neurotrax testing [id number] 05 follow up with Neurology:Dr Lomax's assessment--neuropsych testing wnl for her age--mri w small vessel changesstroke risk factor reduction--lab work up significant for IgG monoclonal gammopathyhematology follow up TodayThe Neurology evaluation all came back fine. Hematology follow up December 01--IgG monoclonal gammapathy, concern for mgusmonoclonal gammopathy is mild, mild renal insufficiency, negative 2019 bmbxdoing well, follow--b12 deficiencymonthly parenteral supplementation--rtc in one year follows with Pain Management from chronic low back pain associated with:lumber spondylosis, lumbar facet arthropathys/p first radio frequency ablation treatment October our October 2024 visit:It's been good. I can tell a difference.When I go back in two months, I'll have the steroid injection. They'll alternate every two months, either the ablation - if I need it again -or the steroid.Todaymost recently, December 22 bilateral L4-5 esifollow up in six weeks exercisereferred for a second round of PT for low back pain, weakness, poor balancelast session was September 16, day prior to cathAt our October 2024 visit,I haven't really been doing the home therapy exercisesbut, walking has been good, I don't use my cane anymore. I can walk from the parking lot, into [facility], all the way back to the electronic dept to medicinal plant picker my pictures and I don't use a cartbut, she doesn't walk unless has a specific reason toplan we laid out:resume another course of twice weekly PTremaining days walk three to four times per day for 5 to 6 mins each timeTodaysteps are improving, some days are only 400 but some days, up to 2,400PLANacknowledges that days she does ~ 2500 steps, feels fine, no reason she cannot do this every day, and increase furtherwrote out instructions regarding how to reach [facility] and check out cost of monthly membership to attend twice weekly water aerobic classes blood pressurehas been generally trending down with weight lossAt her March visit with primary, bp 100/60, described lightheadedness on standing, chlorthalidone stopped.At our April mmaej313/78, no lightheadednessfollow up with primary, June 29 bp 114/66, no medication changesAt our July 2024 visit, 109/69, no xdsanwnxRnlnz49/65, asymptomatic diet recall:6-8 dekj78-71 breakfast protein drink (half)snack gktihif78-2 lunch salad OR chicken/tuna salad wrapsnack fruit, second half of protein shake5-7 dinner salad OR chicken/pork/hamburger + veggiesdessert/snack nothing, maybe fruitbeverages:water w/ lemon, sugar free and regular daina clint (maybe once per month)sugar free coke, sugar free root beer, rare zfqriti29:30-2 sleepPLANdiscussed--formal tracking protein seven days, goal at least 70 grams, preferably 80, per ayreviewed a few examples--purposeful indulgences 2024 (hematology)Hgb 13.3 mcv 88 rdw 13.1 plt 248b12 433 folate 12.15ferritin 104 fe 84 iron sat 29%gluc 89 k 4.5 cr 1.05 bicarb 28 ca 9.6 alb 3.4 A1c6.3 --> 6.1 --> 5.09 August 2022 --> 5.12 September 2023 ckd IIIcr: 1.25 --> 1.35 --> 1.November --> 1.138 March 2023 -->1.September --> 1.24 Jun 2024 --> 1.0 September 2024urinemalb elevated 29.4 (0-17), ratio is wnl 16.2 2022vit d 67gluc 103 k 4.7 cr 1.138 gfr 47 bicarb 27 ca 10.1 alb 3.8 alt 40 ast 30hgb 15.1fe 120 ferritin 225 percent sat 41 2023A1c 5.5Tchol 123 Trig 114 hdl 57 ldl 43Hgb 12.8 mcv 97 rdw 14.2gluc 88 cr 1.0 gfr 54.7 bicarb 26 ca 9.5 alb 4.1 alt 14 ast 16total protein low 6.0urine malb elevated 29.4 (0-17) 2023glug 89 cr 1.1 gfr 49.2 bicarb 22 ca 9.1 alb 4.4 micronutrientssee A/Pfollows with hematology for b12 injections ROS February 08N cp w exertionY dawson, lesseningN pndN palpitationsN syncopeN melenaN dysphagiaN reflux July 14ad, dyspnea, le edema/lymphedemaJune 2022 visit with primary md notes CAC score of 5297.Thallium stress was unremarkable.An echo, completed Jun 16 2023 to further evaluate dyspnea and elevated CAC score, showed a normal ef 59% with cLVH, grade II diastolic dysfunction, and elevated LAP.July 31 2023 cardiology follow up:Patient presents to office today with concerns regarding her calcium score an need for cath. She does not have chest pain but does have some shortness of breath, last cr slightly elevated. Repeat NST was unremarkable.December 18 2023 cardiology follow up:c/o lower ext edema,doppler was technically difficult due to edema, pain -compromised study therefore non-occlusive deep venousthrombosis cannot be excluded in the right posterior tibial and peroneal veins ; evidence of venous refluxbp 86/54, asymptomaticJuly 15th primary md follow upbp 102/60 and she c/o easy bruisingspironolactone decreased to 25 mg once daily and plavix (had been on for decades post tia) --> to aspirin 81 mgAt our December visit, confirmed same--denies sob with exertion that is out of proportion to expected, it's less than it used to be--c/o lower extremity edema that improves with elevation and I always do that at homeonly wears compression stockings on days doesn't leave house; but, most days does go somewherefour or five years ago completed a course of lymphedema decongestive therapy--bp 97/63 is asymptomaticshabel says that bb was replaced with arbAt our April visitsays dyspnea is same, maybe a bit betterI referred her for a course of lymphedema decongestive therapywas going twice weekly, recently discharged due to diagnosed with pedal fungal infectionbut I did really well, my legs feel better and I'm wearing shoes that I couldn't wear beforeTodaydyspnea has been slowly lesseningwearing compression stockings but only on days does not go to PT, swelling continues to be much improved Obesity related PMH: PREDIABETESwas diagnosed within the past two years. CKD 3bGFR in the 40s trending slightly downward past two years CARDIOVASCULARShabel has a plethora of cardiovascular risk factors as well as reported remote TIA.Work up she remembers is a nuc med stress sometime before covid, because I was having chest pain. It came back fine.She reports a diagnosis of lymphedema --treatment at lymphedema clinic in 2019 and again this year, ending in December. MUSCULOSKELETALShabel has chronic low back pain for years. She describes ESIs every three months.She's not sure but believes that she could walk for about ten minutes if necessary.She has some knee pain but it's not activity limiting.2008 s/p arthroscopic surgery right knee GYNCycles were generally regular. No hirsutism.acneHistory is is not suggestive of PCOS SLEEPStop Bang score is 4 answers yes to daytime somnolence, no to loud snoring, no to witnessed apnea DIET/EXERCISEDiet is poor, full of processed sugar, fast food: B usually none but might have a chocolate or blueberry muffin and hot chocolatedrinks crystal lite throughout the :00 L usually first meal: Ar[employer]'s or Popeyes chicken sandwich OR fried chicken and mashed potatoessnack: anabaptist granola bar6:00 D grilled protein, microwave mashed potatoes, corn or peas, or broccoli, cauliflowerafter dinner: anabaptist granola or a bowl of cocktail peanutsI rarely eat chips. I'm not supposed to eat salt.beverages: most of the time crystal lite, sweet tea at lunch, sometimes daina clint, or sprite exerciseNone. Activity is curtailed with back pain.She goes to grocery shop, or medical appointments. Sometimes she'll go out to lunchShe used to go to a pool. ROS Initial VisitY hematuria, recent episode, I went to my Zygl[employer] Inspector and she's checking into it and gave me some medicine -- ? uti At her September 04 primary md visit:she complained of intermittent paresthesias lower legs as well as cramps in hands and legs that are worse at night. The amount of gabapentin she takes causes somnolence.Simvastatin was held and mag oxide started. She feels that these changes have helped. SKISF0e5.3 August36.1 November.3 August.15 September 2020 Cr1.27 August30.98 May.21 Feb.37 November.35 September.03 Jul 20192022 Octobervit d 67gluc 103 k 4.7 cr 1.138 gfr 47 bicarb 27 ca 10.1 alb 3.8 alt 40 ast 30hgb 15.1fe 120 ferritin 225 percent sat 41 2023A1c 5.5Tchol 123 Trig 114 hdl 57 ldl 43Hgb 12.8 mcv 97 rdw 14.2gluc 88 cr 1.0 gfr 54.7 bicarb 26 ca 9.5 alb 4.1 alt 14 ast 16total protein low 6.0urine malb elevated 29.4 (0-17) 2023glug 89 cr 1.1 gfr 49.2 bicarb 22 ca 9.1 alb 4.4 2021microalbumin <30uric acid 5.3Hgb /Hct mildly elevated 16.3/49.4, and RBC 5.7, all trending up, remaining lines upper end normal: WBC 10.4 plat 344mcv 87gluc 1.37cr 1.37 bicarb 26 ca 10 alb 4.2 ALT 41Tchol 183 Trig 100 HDL54 LDL 111 INITIAL WEIGHT HISTORYMs Francis is a since 2007, was for forty two years. She is hearing impaired.She is a never smoker, drinks occasional alcoholic beverages, does not use marijuana. 2021September 04 232.4 [id number] Feb 18 232.2 [id number] Apr 09 233.1 Gricelda Gordon MD [address] [facility] [address], [place], [address], [facility] 05/08/2025 10:11:10 2024 text/h tml ROS as noted in the HPI 77 year old with class III obesity BMIComorbidities include Prediabetes, HTN, Dyslipidemia, CKD 3b, history of TIA, GERD, Gout, DJD, lumbar radiculopathy Other diagnoses:--overactive bladder--No nephrolithiasis--No history of pancreatitis--No glaucoma, reports regular eye examsmost recently September 16, 2024 with Sharri Pradhan Family Historyadopted, no knowledge We appreciate the referral from Dr Moe. TODAY's visit we addressed: 1) diet2) exercise: chronic pain/balance/dyspnea3) liver fibrosis, prediabetes --metabolic syndrome4) htn, cad, ckd, h/o tia5) weight loss medication options6) neurology evalutation for memory - unremarkable7) hematology follow up8) micronutrients upcoming appt with cardio on 10/27/25did not sign up for the y or another round of pt with andrei addisontated she is gonna be out of town until new years and will start stuff when she gets backgabapentin is still the same; stated trying totaking tylenol extra strength for pain as wellhematology gives her b12 shots every 2 months; next shot is 06/17/25unsure of when the last bone density test was will be travelling to [place] May 24 to Jun 14 regain of 6 lbs in three months 180.6 lbs(186 03/31 at pulm)in setting ofmy eating--maybe from stress because I'm worried about this fungus even though the doctor said I don't need to worry At our April 2024 visit, weight was down another few lbs, continuing the downward trend.I've donated all of my old clothes to a confucianist.My stamina is better. I'm able to do more.Todaycontinues positive course, notices a little improvement in strength and balance with increase in exercise At our September 2023 visit, we discussed importance of being active in some way every day of the week rather than just on the two PT days.At our December visit, activity level had picked up.I can tell that I'm getting stronger and can go a little farther.I walked in the mall when my daughter was visiting. She's able to walk about 5 mins, then stops to rest due to low back pain.One area of concern is her poor balance -- I can tell that I'm getting a little better in that too.confirms that her home has been inspected to trip hazards At our April 2024 visit, there were no further falls and she agreed to a course of PT. At our July 2024 visit, weight down another 3.4 lbs. Since then:--September 07 2024 cardiology follow upHer elevated calcium score and the presence of a Q wave and T inversion in the inferior leads on her EKG, which are new findings compared to previous EKGs, suggest the potential development of silent myocardial damage or infarction in the inferior region of her heart. Her dyspnea could be indicative of underlying coronary artery disease or ischemia. Previous stress tests have yielded negative results. A cardiac catheterization will be scheduled at [facility] within the next few weeks to further investigate the possibility of arterial blockages.--September 17cath--October 22 cardiology follow upcath showed moderate nonobstructive disease cadsymptom freecontinue aspirin, statin, anti hypertensivesreview of studies:elevated calcium score 09/2022 [facility]: 5297negative NST 10/2022 and 4cath 09/2024: 40% distal LM, LAD mid 40%, patent diag, LCx OM 30-40% ostial, RCA patentremote history of tia, previously treated with aspirin and plavix, and subsequently plavix only evaluated for speech and memory difficulties by Neurologist, Dr Lomax 2025 May 1stat appointment with cardiology, she reported difficulty speaking, specifically coming up with words, referred to NeurologyDr Lomax's assessment:c/w mild cognitive disorder but, given her cardiovascular disease and h/o TIA and recent onset of symptoms, will be evaluated for intracranial etiologiesorders placed for labs, brain mri, referral for neuropsych testing, and return to office for neurotrax testing [id number] 05 follow up with Neurology:Dr Lomax's assessment--neuropsych testing is within normal limits for her age--mri w small vessel changesstroke risk factor reduction--lab work up significant for IgG monoclonal gammopathyhematology follow up recommended Hematology follow up December 01--IgG monoclonal gammapathy, concern for mgusmonoclonal gammopathy is mild, mild renal insufficiency, negative 2019 bmbxdoing well, follow--b12 deficiencymonthly parenteral supplementation--rtc in one year At our February 08 visit, gain of 1.2 lb in thirteen weeksno new Neuro, Heme, Cards issuesOur visit focused on specific approach to increase movement and advanced dietary intervention TodayXXXXXXXXXXXXXXXXXXXXHAS SHE GENERALLY INCREASED MOVEMENT?NEED TO SAY ANYTHING ABOUT DIET? follows with Pain Management from chronic low back and leg pain associated with:lumber spondylosis, lumbar facet arthropathyaggravated bylifting, prolonged standing, walking, weight bearings/p first radio frequency ablation treatment October 19At our October 2024 visit:It's been good. I can tell a difference.When I go back in two months, I'll have the steroid injection. They'll alternate every two months, either the ablation - if I need it again -or the steroid.At our February 08 2025 visitmost recently, December 22 bilateral L4-5 esifollow up in six weeks Todayhas followed up twice, February and April:--February 23 follow up with Pain Managementcombination of the injections and medications are helping, have allowed her to avoid surgical interventioninteverventions this visit included:lumbar facet injectionfor the lumbar facet arthropathy and lumbar spondylosisandtrigger point injectionfor the myofascial pain due to compensating for their back discomfortmedical management with gabapentin XXXXXX ANYTHING ELSE?next appt in two months--April 26 follow up with Pain ManagementRosemarbetty does report that the the previous lumbar facet injections have helped tremendously, especially with the lower back axial discomfort.reports greater than 60% relief for over 8 weeks, but they are requesting a more prolonged and therapeutic option. She reports that she has been trying to do more around the house and has been trying to do more walkingreports that even though she has been using her cane, her legs have been weak at times so has been trying to do more walking to get some of this strength backinterventions this visit included:lumbar facet radiofrequency ablationandlumbar trigger point injection did discuss myofascial release and stretching exercises to try to help with this as wellalso discussed the importance of maintaining a healthy weight in addition to core strengthening and stability exercisesalso discussed her traveling and overdoing things. We did also discuss some biofeedback mechanisms and preventative measures to try to help with the pain as well XXXXXXXXXXXXXXX SHORTEN THIS, USE SUPPORT FOR NEEDS PT!!ADDENDUM: Following the procedure today, Angelina was able to get off the procedure table by herself without any assistance. She was then able to walk to the recovery area. After sitting for approximately 20 minutes, I did discharge Angelina. She attemted to stand and after standing, she reported that she got lightheaded. She then did fall to génesis carpeted surface. She did not hit her head or any other body part area. She was then assisted to the chair again. She reported that she felt lightheaded after getting up abruptly. She was able to stand and able to walk around the chairs after sitting for a period. BP was also evaluated and was 124/64. HR 91. She reported that she had not had breakfast or any food during that day.She denied any chest pain or headache or any other neuro changes whatsoever, She did call a family member and was able to assist her as I recommended that she not drive. I also advised her that this was the first time I had seen her without the cane and I recommended continuing using this as well for fall prevention. There was no bruising or trauma that I could see. She was discharged home walking with identical strength and ability as when she did walk in today. Even my nurses commented that during all previous visits, she was off balance and needed assistance walking up and down the hallway.XXXXXXXXXXXXXXXXXXXXXXXXXX exercisereferred for a second round of PT for low back pain, weakness, poor balancelast session was September 16, day prior to cathAt our October 2024 visit,I haven't really been doing the home therapy exercisesbut, walking has been good, I don't use my cane anymore. I can walk from the parking lot, into [facility], all the way back to the electronic dept to medicinal plant picker my pictures and I don't use a cartbut, she doesn't walk unless has a specific reason toplan we laid out:resume another course of twice weekly PTremaining days walk three to four times per day for 5 to 6 mins each timeTodaysteps are improving, some days are only 400 but some days, up to 2,400PLANacknowledges that days she does ~ 2500 steps, feels fine, no reason she cannot do this every day, and increase furtherwrote out instructions regarding how to reach [facility] drive over to the and check out cost of monthly membership to attend twice weekly water aerobic classesXXXXXXXXXXXXXXXXXXXXXXXsteps per day:some days less than 1,000 steps, average 2,000 to 3,000, two days I got up to 6,000acknowledges needs to resume exercise blood pressurehas been generally trending down with weight lossAt her March visit with primary, bp 100/60, described lightheadedness on standing, chlorthalidone stopped.At our April mxumr862/78, no lightheadednessfollow up with primary, June 29 bp 114/66, no medication changesAt our July 2024 visit, 109/69, no symptomsAt our February visit99/65, asymptomaticTodayXXXXXXXXXXXXXXXX diet recall:wake: 7-7:30ambreakfast: 9-10am protein shake, toast with peanut buttermid way: nonelunch: 11am-2pm salad, chicken wrapmid way: sometimes fruit, not always with a source of proteindinner:5-7pm salad, meat, veggie, fast food chicken sometimesafter dinner: sometimes toast (slice of keto bread) with peanut butter OR an protein shake + orange OR celery + pbbeverages:water, sugar free sodabedtime: 11pm-3am PLANdiscussed--formal tracking protein seven days, goal at least 70 grams, preferably 80, per ayreviewed a few examples--purposeful indulgencesXXXXXXXXXXXXXXxx 2024February 18 (hematology)b12 386ferritin 112 fe 94 iron sat 39%gluc 89 cr 0.99 gfr 56 bicarb 27 ca 9.8 alb 3.5 alt 24 ast 21 2024 (hematology)Hgb 13.3 mcv 88 rdw 13.1 plt 248b12 433 folate 12.15ferritin 104 fe 84 iron sat 29%gluc 89 k 4.5 cr 1.05 bicarb 28 ca 9.6 alb 3.4 A1c6.3 --> 6.1 --> 5.09 August 2022 --> 5.12 September 2023 ckd IIIcr: 1.25 --> 1.35 --> 1.November --> 1.138 March 2023 -->1.September --> 1.24 Jun 2024 --> 1.0 September 2024urinemalb elevated 29.4 (0-17), ratio is wnl 16.2 2022vit d 67gluc 103 k 4.7 cr 1.138 gfr 47 bicarb 27 ca 10.1 alb 3.8 alt 40 ast 30hgb 15.1fe 120 ferritin 225 percent sat 41 2023A1c 5.5Tchol 123 Trig 114 hdl 57 ldl 43Hgb 12.8 mcv 97 rdw 14.2gluc 88 cr 1.0 gfr 54.7 bicarb 26 ca 9.5 alb 4.1 alt 14 ast 16total protein low 6.0urine malb elevated 29.4 (0-17) 2023glug 89 cr 1.1 gfr 49.2 bicarb 22 ca 9.1 alb 4.4 micronutrientssee A/Pfollows with hematology for b12 injections ROS May 11 XXXXXXXXXXXXXN cp w exertionY dawson, but has lessenedN pndN palpitationsN syncopeN melenaN dysphagiaN reflux February 08, 2025gain of 1.2 lb in thirteen weeks diet recall:6-8 mcpo84-29 breakfast protein drink (half)snack azxqrdg29-8 lunch salad OR chicken/tuna salad wrapsnack fruit, second half of protein shake5-7 dinner salad OR chicken/pork/hamburger + veggiesdessert/snack nothing, maybe fruitbeverages:water w/ lemon, sugar free and regular daina clint (maybe once per month)sugar free coke, sugar free root beer, rare gennebx61:30-2 sleepPLANdiscussed--formal tracking protein seven days, goal at least 70 grams, preferably 80, per ayreviewed a few examples--purposeful indulgences July 14ad, dyspnea, le edema/lymphedemaJune 2022 visit with primary md notes CAC score of 5297.Thallium stress was unremarkable.An echo, completed Jun 16 2023 to further evaluate dyspnea and elevated CAC score, showed a normal ef 59% with cLVH, grade II diastolic dysfunction, and elevated LAP.July 31 2023 cardiology follow up:Patient presents to office today with concerns regarding her calcium score an need for cath. She does not have chest pain but does have some shortness of breath, last cr slightly elevated. Repeat NST was unremarkable.December 18 2023 cardiology follow up:c/o lower ext edema,doppler was technically difficult due to edema, pain -compromised study therefore non-occlusive deep venousthrombosis cannot be excluded in the right posterior tibial and peroneal veins ; evidence of venous refluxbp 86/54, asymptomaticJuly primary md follow upbp 102/60 and she c/o easy bruisingspironolactone decreased to 25 mg once daily and plavix (had been on for decades post tia) --> to aspirin 81 mgAt our December visit, confirmed same--denies sob with exertion that is out of proportion to expected, it's less than it used to be--c/o lower extremity edema that improves with elevation and I always do that at homeonly wears compression stockings on days doesn't leave house; but, most days does go somewherefour or five years ago completed a course of lymphedema decongestive therapy--bp 97/63 is asymptomaticshe says that bb was replaced with arbAt our April visitsays dyspnea is same, maybe a bit betterI referred her for a course of lymphedema decongestive therapywas going twice weekly, recently discharged due to diagnosed with pedal fungal infectionbut I did really well, my legs feel better and I'm wearing shoes that I couldn't wear beforeTodaydyspnea has been slowly lesseningwearing compression stockings but only on days does not go to PT, swelling continues to be much improved Obesity related PMH: PREDIABETESwas diagnosed within the past two years. 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 It came back fine.She reports a diagnosis of lymphedema --treatment at lymphedema clinic in 2019 and again this year, ending in December. MUSCULOSKELETALShe has chronic low back pain for years. She describes ESIs every three months.She's not sure but believes that she could walk for about ten minutes if necessary.She has some knee pain but it's not activity limiting.2007 s/p arthroscopic surgery right knee GYNCycles were generally regular. No hirsutism.acneHistory is is not suggestive of PCOS SLEEPStop Bang score is 4 answers yes to daytime somnolence, no to loud snoring, no to witnessed apnea DIET/EXERCISEDiet is poor, full of processed sugar, fast food: B usually none but might have a chocolate or blueberry muffin and hot chocolatedrinks crystal lite throughout the :00 L usually first meal: [employer] or [employer] chicken sandwich OR fried chicken and mashed potatoessnack: anabaptist granola bar6:00 D grilled protein, microwave mashed potatoes, corn or peas, or broccoli, cauliflowerafter dinner: anabaptist granola or a bowl of cocktail peanutsI rarely eat chips. I'm not supposed to eat salt.beverages: most of the time crystal lite, sweet tea at lunch, sometimes daina clint, or sprite exerciseNone. Activity is curtailed with back pain.She goes to grocery shop, or medical appointments. Sometimes she'll go out to lunchShe used to go to a pool. ROS Initial VisitY hematuria, recent episode, I went to my [employer] and she's checking into it and gave me some medicine -- ? uti At her September 04 primary md visit:she complained of intermittent paresthesias lower legs as well as cramps in hands and legs that are worse at night. The amount of gabapentin she takes causes somnolence.Simvastatin was held and mag oxide started. She feels that these changes have helped. JDMBX8j6.3 August36.1 November.3 August.15 September 2020 Cr1.27 August.98 May.21 Feb.37 November.35 September.03 Jul 20192022 Octobervit d 67gluc 103 k 4.7 cr 1.138 gfr 47 bicarb 27 ca 10.1 alb 3.8 alt 40 ast 30hgb 15.1fe 120 ferritin 225 percent sat 41 2023A1c 5.5Tchol 123 Trig 114 hdl 57 ldl 43Hgb 12.8 mcv 97 rdw 14.2gluc 88 cr 1.0 gfr 54.7 bicarb 26 ca 9.5 alb 4.1 alt 14 ast 16total protein low 6.0urine malb elevated 29.4 (0-17) 2023glug 89 cr 1.1 gfr 49.2 bicarb 22 ca 9.1 alb 4.4 2021microalbumin <30uric acid 5.3Hgb /Hct mildly elevated 16.3/49.4, and RBC 5.7, all trending up, remaining lines upper end normal: WBC 10.4 plat 344mcv 87gluc 1.37cr 1.37 bicarb 26 ca 10 alb 4.2 ALT 41Tchol 183 Trig 100 HDL54 LDL 111 INITIAL WEIGHT HISTORYMs Francis is a since 2007, was for forty two years. She is hearing impaired.She is a never smoker, drinks occasional alcoholic beverages, does not use marijuana. 2021September 04 232.4 [id number] Feb 18 232.2 [id number] Apr 09 233.1 Not Available Not Available Not Available OBGyn Episode No OBEpisode recorded.
--- OUTSIDE RECORDS SUMMARY | 2025-06-02 12:43 | XMS_ITS | Encounter Summary ---
Author Organization [facility] Address [address], [address] [place] [address] Care Team Providers Care Shop Helper Name Role Phone Mahin Malloy MD Primary Care Provider [phone] Reason for Referral * Imaging (Routine) - Open Specialty Diagnoses / Procedures Referred By Contac t Referred To Contact Radiology Diagnoses Asymptomatic menopausal state Procedures DEXA BONE DENSITY AXIAL SKELETON Mahin Malloy MD [address] [place] [address] Phone: tel: fax: Referral ID Status Reason Start Date Expiration Date Visits Re quested Visits Authorized [id number] Open 06/01/2025 06/01/2026 1 1 Encounter Details Date Type Department Care Team (Latest Contact Info) Description 06/01/2025 Transcribe Orders [facility] SCHEDULING [address] [place] [address] Mahin Malloy MD [address] [place] [address] Asymptomatic menopausal state (Primary Dx) Social History Tobacco Use Types [...] on file documented as of this encounter Progress Notes * Sera Haider - 06/01/2025 3:42 PM EST DEXA documented in this encounter Plan of Treatment Upcoming Encounters Date Type Department Care Team (Late st Contact Info) Description 08/19/2025 8:30 AM EDT Appointment [address] [address] MCR; [facility]--- DEXA // Z78.0 // FAX Scheduled Orders Name Type Priority Associated Diagnoses Orde r Schedule DEXA BONE DENSITY AXIAL SKELETON Imaging Routine Asymptomatic menopausal state Expected: 06/01/2025, Expires: 06/01/2026 documented as of this encounter Visit Diagnoses Diagnosis Asymptomatic menopausal state- Primary Asymptomatic postmenopausal status (age-related) (natural) documented in this encounter Care Teams Shop Helper Relationship Specialty Start Date End Date Mahin Malloy MD [address] [place] [address] PCP - General 04/14/12 documented as of this encounter
--- OUTSIDE RECORDS SUMMARY | 2025-06-02 12:43 | XMS_ITS | Encounter Summary ---
Author Organization [facility] Address [address] [place] [address] Care Team Providers Care Visual Developer Name Role Phone Mahin Malloy MD Primary Care Provider [phone] Encounter Details Date Type Department Care Team (Late st Contact Info) Description 01/12/2025 MyChart Encounter [facility] [address] [place] [id number] Timbo Stiles, NELLY [address] [place] [address] Orthopedic History Questionnaire Social History Tobacco Use Types Packs/Day Years [...] Assessment Author No 09/17/2024 8:36 AM EDT Jarerd Aguiar RN * Increase in assistance with bathing, dressing, etc. Answer Date of Assessment Author No 09/17/2024 8:36 AM EDT Jarred Aguiar RN documented as of this encounter Plan of Treatment Upcoming Encounters Date Type Department Care Team (Late st Contact Info) Description 06/22/2025 9:45 AM EST Office Visit [facility] [address] [place] [address] Timbo Stiles DPM [address] [place] [address] 10/27/2025 9:15 AM EDT Office Visit [facility] [address] [place] [address] Gurinder Patel MD [address] [facility] [address] [place] [address] documented as of this encounter Visit Diagnoses Not on filedocumented in this encounter Care Teams Visual Developer Relationship Specialty Start Date End Date Mahin Malloy MD [facility] [address] [place] [address] PCP - General 11/18/11 documented as of this encounter
--- OUTSIDE RECORDS SUMMARY | 2025-06-02 12:43 | XMS_ITS | Data Portability ---
Author Organization [facility], [facility] IP Address [address] [place] [address] Care Team Providers Care Rn Placement Name Role Phone ABHIPATTIMELISSA Primary Care Provider Assessment No assessment recorded. Plan of Treatment Reminders Order Date Submit Date Provider Last Modified By Organization Details Last Modified Time Details Appointments None recorded. Lab None recorded. Referral None recorded. Procedures None recorded. Surgeries None recorded. Imaging US, pelvis 2018 019 [email or web address] In-House Test, For Internal Use Only, Do Not Delete/merge, [id number] 9 13:18:57 MAMMO, screening, digital, bilateral [email or web address] [facility], [address] [facility], [facility] [address], [place], [address], 9 14:31:08 MAMMO, screening, digital, bilateral 2016 017 [email or web address] Not available 8 13:00:35 Medication Orders Provera 10 mg tablet 2018 019 [email or web address] Not available 1 10:18:08 Patient TargetsNo targets recorded. Patient Instructions Encounter Date Encounter Id Patient Instructions Last Modified By Organization Details Last Modified Time 09/18/2018 [id number] breast self-exam : care instructions mdixon Not available 09/18/2018 11:16:45 mammogram: about this test mdixon Not available 09/18/2018 11:16:45 09/19/2020 [id number] breast self-exam : care instructions mdixon Not available 09/19/2020 10:47:10 A healthy lifestyle: care instructions luanne Not available 09/19/2020 10:47:09 mammogram: about this test luanne Not available 09/19/2020 10:47:09 Reason for Referral None Reported. Results Created Date Observation Date Name Description Value Unit Range Abnormal Flag Note LastModifiedBy Organization Detail LastModifiedTime 09/26/19 17 MAMMO , scree jackie, tomos ynthe sis, bilat eral No observ ation record ed. [facility] (Radiology) [address] [place], [address], 10/02/2016 14:21:38 09/27/19 18 09/25/2017 MAMMO , scree jackie, tomos ynthe sis, bilat eral, w/ CAD No observ ation record ed. [facility] (Radiology) [address] [place], [address], 09/30/2017 10:54:03 10/03/19 19 10/02/2018 ana image s No observ ation record ed. luanne Mooney [address], [address], 10/02/2018 13:32:12 10/03/19 19 10/02/2018 ana image s No observ ation record ed. luanne Mooney [address], [address], 10/02/2018 15:33:53 10/06/19 19 10/02/2018 MAMMO , scree jackie, tomos ynthe sis, bilat eral, w/ CAD No observ ation record ed. [facility] (Radiology) [address] [place], [address], 10/09/2018 16:01:57 Result Notes None recorded. Problems Name Problem SNOMED Code Status Onset Date Resolution Date Notes Provider Name and Address Organization Details Recorded Time Female genital organ symptoms 856897387 Completed 02/21/2015 Mae Manning MD 100 [facility], [facility] [address], [place], [address] , [facility] 5 18:53:19 Female urinary stress incontinen ce 14579874 Active Not Available [facility] 3 03:05:57 Urge incontinen ce of urine 67986491 Completed 09/18/2018 Mae Manning MD 100 [facility], [facility] [address], [place], [address] , [facility] 9 11:08:28 Urogenital finding 639168684 Completed 02/21/2015 Mae Manning MD 100 [facility], [facility] [address], [place], [address] , [facility] 5 18:53:12 Postmenopa usal bleeding 65312478 Active Mae Manning MD [address] [facility], [facility] [address], [place], [address] , [facility] 5 19:05:44 Problem Notes None recorded. Procedures Surgical History Date Name Laterality Status Provider Name and Address Organization Details Recorded Time 10/03/19 19 Date of Last Mammogram completed Leander Lawrence [facility] 09/19/2020 10:11:49 02/22/20 15 Endometrial Biopsy completed Mae Manning MD [address] [facility], [facility] [address], [place], [address], [facility] 02/21/2015 18:56:42 Breast Biopsy completed Harleen Ingram [facility] 09/12/2011 11:49:17 Cholecystectomy completed Harleen Ingram [facility] 09/12/2011 11:49:17 Imaging Results None recorded. Procedure Notes None recorded. Medical Equipment None Reported. Allergies Allergen ID Allergen Name Allergen Category Reaction Reaction Severity Criticality Documentation Date Start Date Code Code System Note Provider Name and Address Organization Details Recorded Time [id number] prednison e medicatio n nausea vomiting Not available Not available Not available 10/02/2018 8640 RxNorm Harleen Bose null, [place] - [facility] 9 12:06:58 Medications Name Sig Start Date Stop Date Status Note LastModified by Organization Details LastModified Time losartan 50 mg tablet 09/13 completed Not Available Not Available Not Available amoxicilli n 500 mg capsule active Not Available Not Available Not Available medroxypro gesterone 10 mg tablet take 1 tablet by mouth once daily 09/19 completed Not Available Not Available Not Available atorvastat in 40 mg tablet 09/18 completed Not Available Not Available Not Available Aggrenox 25 mg-200 mg capsule, extended release active Not Available Not Available Not Available atorvastat in 80 mg tablet 1/2 tab qd 09/18 completed Not Available Not Available Not Available doxycyclin e hyclate 100 mg capsule take 1 capsule by mouth every 12 hours 09/19 completed Not Available Not Available Not Available azithromyc in 250 mg tablet take 2 tablets by mouth today then take 1 tablet by mouth once daily for 4 days 09/19 completed Not Available Not Available Not Available acetazolam javier ER 500 mg capsule,ex tended release active Not Available Not Available Not Available benzonatat e 200 mg capsule take 1 capsule by mouth three times a day if needed for cough active Not Available Not Available No t Available hydrocodon e 5 mg-acetami nophen 325 mg tablet prn 09/19 completed Not Available Not Available Not Available prednisone 20 mg tablet active Not Available Not Available Not Available propranolo l ER 60 mg capsule,24 hr,extende d release take 1 capsule by mouth once daily active Not Available Not Available No t Available simvastati n 10 mg tablet take 1 tablet by mouth every evening active Not Available Not Available No t Available promethazi ne 6.25 mg-codeine 10 mg/5 mL syrup take 5 millilit ers by mouth twice a day if needed for cough for 10 days active Not Available Not Available No t Available acetaminop hen 300 mg-codeine 30 mg tablet 09/13 completed Not Available Not Available Not Available clopidogre l 75 mg tablet take 1 tablet by mouth once daily 04/13 /2021 completed Not Available Not Available Not Available chlorthali done 25 mg tablet take 1 tablet by mouth once daily 09/19 completed Not Available Not Available Not Available allopurino l 100 mg tablet active Not Available Not Available Not Available sulfametho xazole 800 mg-trimeth oprim 160 mg tablet 09/18 completed Not Available Not Available Not Available spironolac tone 25 mg tablet take 1 tablet by mouth once daily active Not Available Not Available No t Available simvastati n 40 mg tablet active Not Available Not Available Not Available Celebrex 200 mg capsule active Not Available Not Available Not Available Guaiatussi n AC 10 mg-100 mg/5 mL oral liquid take 1 to 2 teaspoon fuls by mouth every 4 hours if needed for cough 09/19 completed Not Available Not Available Not Available benzonatat e 100 mg capsule take 1 or 2 capsules by mouth three times a day if needed for cough active Not Available Not Available No t Available pantoprazo le 40 mg tablet,del ayed release take 1 tablet by mouth once daily 09/19 completed Not Available Not Available Not Available erythromyc in 5 mg/gram (0.5 %) eye ointment 09/18 completed Not Available Not Available Not Available cyanocobal hendrickson (vit B-12) 1,000 mcg/mL injection solution Inject 1 mL every month by subcutan eous route. active Not Available Not Available No t Available hyoscyamin e 0.125 mg sublingual tablet prn active Not Available Not Available Not Available propranolo l ER 80 mg capsule,24 hr,extende d release 09/13 completed Not Available Not Available Not Available promethazi ne 25 mg tablet active Not Available Not Available Not Available indomethac in 25 mg capsule active Not Available Not Available Not Available indomethac in 50 mg capsule active Not Available Not Available Not Available gabapentin 300 mg capsule TAKE 1 CAPSULE BY MOUTH AT BEDTIME active Not Available Not Available No t Available omeprazole 20 mg capsule,de layed release active Not Available Not Available Not Available hydrocodon e 5 mg-acetami nophen 500 mg tablet prn active Not Available Not Available No t Available ammonium lactate 12 % topical cream active Not Available Not Available Not Available allopurino l 300 mg tablet take 1/2 tablet by mouth once daily for 2 WEEKS THEN 1 TAB DAILY THEREAFT ER 09/19 completed Not Available Not Available Not Available acetaminop hen 300 mg-codeine 60 mg tablet active Not Available Not Available Not Available furosemide 20 mg tablet active Not Available Not Available Not Available gabapentin 100 mg capsule take 1 capsule by mouth every morning active Not Available Not Available No t Available levofloxac in 500 mg tablet active Not Available Not Available Not Available albuterol sulfate HFA 90 mcg/actuat ion aerosol inhaler inhale 2 puffs by mouth every 6 hours active Not Available Not Available No t Available colchicine 0.6 mg tablet take 2 tablets by mouth then 1 tablet 1 hour LATER as directed by prescrib er 09/19 completed Not Available Not Available Not Available ondansetro n 4 mg disintegra ting tablet dissolve 1 tablet ON TONGUE every 8 hours if needed for nausea OR vomiting 09/19 completed Not Available Not Available Not Available losartan 100 mg tablet take 1 tablet by mouth once daily 09/19 completed Not Available Not Available Not Available fluticason e propionate 50 mcg/actuat ion nasal spray,susp ension prn active Not Available Not Available Not Available Diovan 160 mg tablet active Not Available Not Available No t Available amoxicilli n 875 mg-potassi um clavulanat e 125 mg tablet active Not Available Not Available Not Available metaxalone 800 mg tablet active Not Available Not Available Not Available Vitamin D3 25 mcg (1,000 unit) tablet 2 po qd 09/19 completed Not Available Not Available Not Available Clobex 0.05 % shampoo active Not Available Not Available Not Available Tylenol Extra Strength 09/19 completed PRN Not Available Not Available Not Available chlorthali done active 1mg daily Not Available Not Available Not Available Vitamin D3 active 50,000 units orally daily Not Available Not Available Not Available Daria Aspirin active 81 mg daily Not Available Not Available Not Available Systane (propylene glycol) 09/19 completed Not Available Not Available Not Available Zostavax (PF) 19,400 unit/0.65 mL subcutaneo us suspension active Not Available Not Available N ot Available MoviPrep 100 gram-7.5 gram-2.691 gram oral powder packet active Not Available Not Available Not Available Durezol 0.05 % eye drops active Not Available Not Available Not Available febuxostat 40 mg tablet take 1 tablet by mouth ON FRIDAY, FRI, AND FRIDAYS ONLY active Not Available Not Available No t Available Besivance 0.6 % eye drops,susp ension 09/13 completed Not Available Not Available Not Available GaviLyte-G 236 gram-22.74 gram-6.74 gram-5.86 gram oral solution 09/18 completed Not Available Not Available Not Available Prevnar 13 (PF) 0.5 mL intramuscu lar syringe inject 0.5 millilit er intramus cularly 09/13 completed Not Available Not Available Not Available Ilevro 0.3 % eye drops,susp ension instill 1 drop into right eye once daily active Not Available Not Available No t Available Fluzone High-Dose 2013- (PF) 180 mcg/0.5 mL intramuscu lar syringe inject 0.5 millilit er intramus cularly active Not Available Not Available No t Available Fluzone High-Dose 1815-6250 (PF) 180 mcg/0.5 mL intramuscu lar syringe inject 0.5 millilit er intramus cularly 10/02 completed Not Available Not Available Not Available Shingrix (PF) 50 mcg/0.5 mL intramuscu lar suspension , kit 10/02 completed Not Available Not Available Not Available Fluad 2017- 65yr up(PF)45 mcg(15 mcgx3)/0.5 mL intramuscu lar syringe inject 0.5 millilit er intramus cularly 10/02 completed Not Available Not Available Not Available Vitals Date Recorded Body height Body weight Body mass index (BMI) Systolic And Diastolic Provider Name and Address Organization Details Last Updated DateTime 09/13/2016 154.94 cm 68117.32 g 41.6 kg/m2 127/63 mm[Hg] Faiza Abdias [facility] 09/13/2016 10:32:18 Date Recorded Body height Body mass index (BMI) Body weight Systolic And Diastolic Provider Name and Address Organization Details Last Updated DateTime 09/18/2018 154.94 cm 41.6 kg/m2 79002.32 g 108/62 mm[Hg] Dory Ortiz [facility] 09/18/2018 10:59:54 Date Recorded Body weight Body mass index (BMI) Body height Systolic And Diastolic Provider Name and Address Organization Details Last Updated DateTime 09/19/2020 673010.06 g 40.4 kg/m2 160.02 cm 116/68 mm[Hg] Leander Lawrence [facility] 09/19/2020 10:17:22 Date Recorded Body height Body mass index (BMI) Body weight Body height Body mass index (BMI) Body weight Systolic And Diastolic Systolic And Diastolic Provider Name and Address Organization Details Last Updated DateTime 9 154.94 cm 41.6 kg/m2 15341.3 2 g 154.94 cm 41.6 kg/m2 27801.3 2 g 110/70 mm[Hg] 110/70 mm[Hg] Harleen Juice [facility] 9 12:27:15 Social History Question Answer Notes LastModified by Organizat ion Details LastModified Time Tobacco Smoking Status Never Smoker 09/19/2020 [facility] Leander Lawrence [facility] 09/19/2020 10:12:20 Do You Have An Advance Directive? No Information not available 09/12/2011 Are You Blind Or Do You Have Difficulty Seeing? No Information not available 09/09/2014 Is Blood Transfusion Acceptable In An Emergency? Yes 09/19/2020 [facility] [email or web address] Information not available 09/19/2020 What Is Your Level Of Caffeine Consumption? Moderate Information not available 09/09/2012 Are You Deaf Or Do You Have Serious Difficulty Hearing? Yes Information not available 09/09/2014 What Type Of Diet Are You Following? REGULAR Information not available 09/09/2012 Which Illicit Or Recreational Drugs Have You Used? No Information not available 09/09/2012 Education 12 Information no t available 09/12/2011 Star No Information no t available 09/13/2016 Ashkenazi Anglican Descent ? No Information not available 09/09/2012 Domestic/Physic al Abuse No [email or web address] Information not available 09/12/2011 Age At First Sexual Keefton 18 [email or web address] Information not available 09/12/2011 Number Of Life Time Sexual Partners 1 Information not available 09/12/2011 Number Of Current Sexual Partners 0 [email or web address] Information not available 09/12/2011 Religious Baptist 09/18/18 Sr [email or web address] Information no t available 09/12/2011 Illicit Drugs No [email or web address] Information not available 09/12/2011 Alcohol Consumption Rare [email or web address] Information not available 09/18/2018 Marital Status [email or web address] Informatio n not available 09/12/2011 What Was The Date Of Your Most Recent Tobacco Screening? 10/02/2018 Information not available 12/31/2018 Do You Use Protection During Sex? No [email or web address] Information not available 09/12/2011 Are You Sexually Active? Yes Not Currently Active Information not available 09/13/2016 How Much Tobacco Do You Smoke? No Information not available 09/13/2016 How Many Years Have You Smoked Tobacco? 0 Information not available 09/13/2016 Do You Have Difficulty Walking Or Climbing Stairs? No Information not available 09/09/2014 Sex: Unknown Functional Status Question Answer Note LastModified by Organizat ion Details LastModified Time What is your level of alcohol consumption? Occasional [email or web address] Information not available 09/12/2011 Do you have difficulty doing errands alone? No Information not available 09/09/2014 Do you have difficulty dressing, bathing, grooming, or toileting? No Information not available 09/09/2014 What is your exercise level? None Information not available 09/09/2012 Mental Status Question Answer Note LastModified by Organization D etails LastModified Time Do you have difficulty concentrating, remembering or making decisions? No Information no t available 09/09/2014 Family History Nothing Reported Notes:adopted unknown family history Medical History Condition Response Anesthesia complications N Other Y Heart Conditions N Cancer - Breast N Kidney or Bladder Problems N Deep Venous Thrombosis N Cancer - Ovarian N Thyroid Problems N Depression N GI Problems Y Defects or Inherited Disease N Cancer - Colon N Cancer - Uterine N Anemia N Elevated Cholesterol Y Osteopenia N Cancer - Cervical N Psychiatric Illness N Anxiety Disorder N Diabetes N Headaches or Migraines Y Pulmonary embolism N Cancer N Asthma N Blood Transfusion Received? N Vitamin D Deficiency Y Seizure disorder N Clotting Disorders N Hepatitis N Heart Disease N Hypertension Y Osteoporosis N Gynecological History Statement/Question Response Date of Last Mammogram 10/02/2018 HPV/genital warts N Herpes N Abnormal Pap N Polycystic Ovarian Syndrome N Last Pap 09/09/12 HIV N Endometrial Ablation Y Age at Menarche 10 Age at First Child 27 Last Mammogram 09/25/17 Gonorrhea N Endometriosis N Last Bone Density Scan 2006 Fibroids N Pelvic inflammatory disease N If Post Menopausal, Age at Menopause 45 Last Colonoscopy 2017 Infertility N Current Control Method Menopause Syphilis N Chlamydia N Obstetrics History GPAL:G 2 P 2 0 0 2 Type Value Full Term 2 Living 2 Total 2 Immunizations Vaccine Type Date Status Note Provider Nam e and Address Organization Details Recorded Time Influenza, recombinant, trivalent, PF 4 completed Jessica Ernandez [facility] 09/09/2014 10:23:40 Influenza, split virus, quadrivalent, preservative 8 completed Harleen Bose [facility] 10/02/2018 12:08:07 Influenza, split virus, quadrivalent, preservative 6 completed Harleen Bose [facility] 10/02/2018 12:08:33 SARS-COV-2 (COVID-19) vaccine, UNSPECIFIED 1 completed Leander Lawrence [facility] 09/19/2020 10:11:13 SARS-COV-2 (COVID-19) vaccine, UNSPECIFIED 1 completed Leander Lawrence [facility] 09/19/2020 10:11:23 zoster live 3 completed Harleen Bose [facility] 09/09/2012 10:43:51 Past Encounters Encounter ID Performer Location Encounter Start Date Encounter Closed Date Diagnosis/Indication Diagnosis SNOMED-CT Code Diagnosis ICD10 Code Diagnosis IMO Codes Diagnosis Note [id number] Mae Manning MD [facility] [address] [place] [address] 08/06/2004 14:33:06 08/06/2004 16:01:13 [id number] MD [facility] [address] [place] [address] 07/17/2005 15:06:24 07/17/2005 16:49:51 [id number] [facility] [address] [place] [address] 08/07/2006 15:17:17 08/07/2006 15:58:25 [id number] [facility] [address] [place] [address] 08/15/2008 14:41:25 08/15/2008 15:28:26 [id number] [facility] [address] [place] [address] 09/01/2009 13:23:43 09/01/2009 14:38:42 [id number] Mae Manning MD [facility] [address] [place] [address] 09/29/2009 13:55:02 09/29/2009 15:08:49 [id number] Mae Manning MD [facility] [address] [place] [address] 12/29/2009 13:27:36 12/29/2009 14:07:32 [id number] Mae Manning MD [facility] [address] [place] [address] 09/05/2010 09:20:45 09/05/2010 10:12:28 [id number] Mae [facility] [address] [place] [address] 09/12/2011 11:28:03 09/12/2011 12:20:22 [id number] Mae [facility] [address] [place] [address] 09/09/2012 10:09:59 09/09/2012 12:27:58 [id number] Mae Manning MD [facility] [address] [place] [address] 09/09/2014 10:10:19 09/09/2014 11:03:26 Specialized medical examination 51265178 Pt presents for well woman exam. Doing well. Nl atrophic exam. Has some spotting with bm once but has not recurred. She understand s that she should continue to present for well woman exams every two years and continue to have yearly mammograph y. Results to portal. Questions answered. Screening for malignant neoplasm of breast 910327561 Pt with normal breast exam and has order for mammogram. Results to portal. Screening for malignant neoplasm of cervix 651095750 No pap sent today and pt told that she no longer needs pap smears. [id number] Mae Manning MD [facility] [address] [place] [address] 02/21/2015 13:49:38 02/21/2015 15:40:28 Postmenopausal bleeding 99596067 Pt with minimal lining on TVS measuring 5-6 mm at fundus. No blood flow seen on US. Little change from US in 2009. D/W pt must be a polyp but had some heavy bleeding and clots yesterday. Cervix closed and endometria l biopsy done after cervix anesthetiz ed with 3 cc of 1% lidocaine without epinephrin e. D/W pt would call her results. If polyp could do hysterosco py for removal. If atrophic endometriu m, would simply watch. Questions answered. [id number] [facility] [address] [place] [address] 02/21/2015 13:49:38 02/21/2015 15:40:28 Postmenopausal bleeding 75726848 [id number] [facility] [address] [place] [address] 09/13/2016 10:03:10 09/13/2016 10:53:11 Specialized medical examination 57476919 Z01.419 Pt presents for well woman exam. Doing well. Nl atrophic exam. No further bleeding since last time seen. Bladder remains the same. She understand s that she should continue to present for well woman exams every two years and continue to have yearly mammograph y. Results to portal. Questions answered. Screening for malignant neoplasm of breast 774736366 Z12.39 Pt with normal breast exam and has order for mammogram. Has skin cyst above the right breast. D/w her if bothers her could have Dr. Shepherd remove as she has seen him in the past. Results to portal. Screening for malignant neoplasm of cervix 387415735 Z12.4 No pap sent today and pt told that she no longer needs pap smears. [id number] aMe Manning [facility] [address] [place] [address] 09/18/2018 10:25:52 09/18/2018 11:22:19 Specialized medical examination 71716193 Z01.419 Pt presents for well woman exam. Doing ok. Has lost 20 # on Nutrisyste m in the past 3 months. Nl atrophic exam. No further bleeding since last time seen. Bladder remains the same with GSI and hopes it will improve with more wt loss. She understand s that she should continue to present for well woman exams every two years and continue to have yearly mammograph y. Results to portal. Questions answered. Screening for malignant neoplasm of breast 199379252 Z12.39 Pt with normal breast exam and has order for mammogram. Results to portal. Screening for malignant neoplasm of cervix 169739931 Z12.4 No pap sent today and pt told that she no longer needs pap smears. [id number] Mae Manning MD [facility] [facility] [address] [place] [address] 10/02/2018 11:57:42 10/02/2018 13:07:44 Postmenopausal bleeding [id number] N95.0 TA/TVS FOR PMB. PT REPORTS MILD/MODER ATE BLEEDING FROM 09/26-09/28. CURRENTLY ASYMPTOMAT IC. EXAM LTD DUE TO PT HABITUS AND UT LIE. TA/TVS: HETEROGENO US EUVERTED UT, 5.2 X 3.4 X 3.6 CM. ENDO, 4.7-5.5 MM. COLOR DOPPLER REVEALS NO VASCULARIT Y WITHIN THE ENDO CAVITY. THE OVARIES ARE UNABLE TO BE VISUALIZED VIA TAS OR TVS DUE TO OVERLYING BOWEL. NO ABNORMAL MASSES OR COLLECTION S ARE IDENTIFIED IN THE CLDS/ADNEX A. FINDINGS REVIEWED W/ GAMA./manasa [id number] Mae Manning MD [facility] [address] [place] [address] 10/02/2018 11:58:22 10/02/2018 13:08:02 Postmenopausal bleeding [id number] N95.0 Here for 2 days of PMB noted when she went to [place] but no bleeding on pad. TVS shows lining 4.3mm. Had same happen in 2014. Lining was 5-6 mm and endo bx with atrophic endometriu m. DW her feel most likely peripheral conversion to a weaker estrogen. Will treat with provera and let me know if she has bleeding. Questions answered. [phone] Mae Manning MD [facility] [address] [place] [address] 09/19/2020 10:04:15 09/19/2020 10:57:15 Specialized medical examination [id number] Z01.419 Pt presents for well woman exam. Doing ok. Bladder remains the same with GSI. Has gotten both of her CVID vaccines and overall doing well. Worked at [employer] for 45 years and sorry to see if clost. DW her that she could continue to present for well woman exams every two years and continue to have yearly mammograph y if she desires. Results to portal. Questions answered. Screening for malignant neoplasm of breast [id number] Z12.39 Pt with normal breast exam and has order for mammogram. Results to portal. Screening for malignant neoplasm of cervix [id number] Z12.4 No pap sent today and pt told that she no longer needs pap smears. Health Concerns Section Related Observation LastModified by Organization Detai ls LastModified Time None Recorded Concern Status LastModified by Organization Details LastModified Time None Recorded Advance Directives Directive N: Payers Insurance Date Sequence Insurance Name Policy Number Policy Vu Covered Member ID Vu Member ID Guarantor Name 02/21/2015 1 [employer] (Mobile CaptainO) 1124 Susie Francis [id number] Susie Francis 09/19/2020 1 [place] Susie Francis [id number] Susie Francis 09/19/2020 2 [employer] [place] (MEDICARE SUPPLEMENT ) Susie Francis [id number] Susie Francis Notes Date Note Type Note Provider Name and Address Organization Details Recorded Time 7 text/htm l Annual-Post menopausalReported by PatientConstitutionalFor constitutional, patient reportsno fever,no fatigue, andno prior abnormal pap smear:.GENITOURINARYFor urinary incontinence, patient reportsstress incontinence mildandurge incontinence rare. For urinary symptons, patient reportsnocturia more than once at night (1/night)but reportsno hematuria,no recurrent urinary tract infections,no urinary urgency, andno urinary strangury. For pelvic pain, patient reportsno pelvic painandnot sexually active. For menopausal symptoms, patient reportshistory of menopause having occurredandno menopausal symptoms. For vaginal bleeding, patient reportsno history of post menopausal bleeding. For vulva, patient reportsno genital lesion,no vulvar itching or burning,no anogenital itching (pruritus), andno vulvar atrophy. For vagina, patient reportsno abnormal vaginal discharge,no vaginal itching or burning, andno vaginal atrophy.BREASTFor breast symptons, patient reportsbreast lump (rt breast. told it was a cyst. pt has been noticing it getting a little bigger. being watched)but reportsno nipple dischargeandno breast pain.PSYCHOLOGICALFor sexual complaints, patient reportsno sexual complaintsandnormal vaginal lubrication. For psychological sxs, patient reportsno depressionandno anxiety.Preventive measuresFor preventative, patient reportsno recent mammogrambut reportshistory of recent colonoscopy (5yrs ago)andbone scan (last one 10yrs ago). For lifestyle, patient reportsgets regular exercise. encouraged to continue,takes vitamins as directed, andvitamin d supplement ( ). Mae Manning MD [address] [facility], [address], [place], [address], [place] [facility] 09/13/2016 10:50:05 9 text/htm l Annual-Post menopausalReported by PatientConstitutionalFor constitutional, patient reportsno fever,no fatigue, andno prior abnormal pap smear:.GENITOURINARYFor urinary incontinence, patient reportsstress incontinence mild(states leakage, wears panty liner). For urinary symptons, patient reportsnocturia more than once at night (2/night)but reportsno hematuria,no urinary frequency,no recurrent urinary tract infections,no urinary urgency, andno urinary strangury. For pelvic pain, patient reportsno pelvic painandnot sexually active. For menopausal symptoms, patient reportshistory of menopause having occurredandno menopausal symptoms. For vaginal bleeding, patient reportsno history of post menopausal bleeding. For vulva, patient reportsno genital lesion,no vulvar itching or burning,no anogenital itching (pruritus), andno vulvar atrophy. For vagina, patient reportsno abnormal vaginal discharge,no vaginal itching or burning, andno vaginal atrophy.BREASTFor breast symptons, patient reportsno breast lump,no nipple discharge, andno breast pain.PSYCHOLOGICALFor sexual complaints, patient reportsno sexual complaints. For psychological sxs, patient reportsno depressionandno anxiety.Preventive measuresFor lifestyle, patient reportsgets regular exercise. encouraged to continue,takes vitamins as directed, andvitamin d supplement ( ). For preventative, patient reportshistory of recent colonoscopy (1yrs ago). Mae Manning MD [address] [facility], [address], [place], [address], [place] [facility] 09/18/2018 11:21:06 9 text/htm l Abnormal BleedingReported by PatientHPIFor onset/timing, patient reportspostmenopause. For quality, patient reportsheavyandpassing clots (quarter size). For severity, patient reportsinterferes with daily activities(pt would get a chill throughout her body and then go to the bathroom and pass clots and heavy flow (did not get on her pad).). For context, patient reportspostmenopausal. For associated symptoms, patient reportsno dysmenorrhea,no pelvic pain,no abdominal pain,no dyspareunia (not sexually active),no fatigue,no dizziness,no anemia/iron supplements,no shortness of breath,no cp/palpitations,no bloating,no change in bowel function,no urinary symptoms,no pms,no vaginal discharge, andno vaginal itching/irritation. For duration, (on 09/27/18 and 09/28/18).ROS as noted in the HPI Mae Manning MD [address] [facility], [address], [place], [address], [facility] 10/02/2018 13:08:22 1 text/htm l Annual-Post menopausalReported by PatientConstitutionalFor constitutional, patient reportsno fever,no fatigue, andno prior abnormal pap smear:.GENITOURINARYFor urinary incontinence, patient reportsstress incontinence mild(states leakage, wears panty liner). For pelvic pain, patient reportsno pelvic painandnot sexually active. For menopausal symptoms, patient reportshistory of menopause having occurredandno menopausal symptoms. For vaginal bleeding, patient reportsno history of post menopausal bleeding. For urinary symptons, patient reportsno hematuria,no nocturia more than once,no urinary frequency,no recurrent urinary tract infections,no urinary urgency, andno urinary strangury. For vulva, patient reportsno genital lesion,no vulvar itching or burning,no anogenital itching (pruritus), andno vulvar atrophy. For vagina, patient reportsno abnormal vaginal discharge,no vaginal itching or burning, andno vaginal atrophy.BREASTFor breast symptons, patient reportsno breast lump,no nipple discharge, andno breast pain.PSYCHOLOGICALFor sexual complaints, patient reportsnormal libido. For psychological sxs, patient reportsno depressionandno anxiety.Preventive measuresFor lifestyle, patient reportsgets regular exercise. encouraged to continue,takes vitamins as directed, andvitamin d supplement ( ). Mae Manning MD [address] [facility], [address], [place], [address], [facility] 09/19/2020 10:54:05 OBGyn Episode Ob Episode Information Episode Created Date Number of Fetuses Patient Bloodtype Patient rh Status Prepregnancy Weight lbs Domestic Partner Domestic Partner Phone Father Name Relish Blender Status 09/12/19 12 1 CLOSED Fetus Data First Name Last Name Admitted to NICU Weight (g) Sex Living Outcome Pediatric Complications Fetus ID Race Codes Race Delivery Type M Full Term [id number] Joss Calculation Initial Joss Date Initial Exam Date Initial Exam Provider Initial Ultrasound Date Last Menstrual Period Date Ultra Sound Weeks Gestation 0 Eighteen To Twenty Week Joss Update Ultra Sound Date Fundal Height At Umbil Quickening Date Ultra Sound Latest Weeks Gestation Final Joss Confirmed By Final Joss Confirmed Date Final Joss Date Ultra Sound Latest Days Gestation 0 0 Menstrual History Last Menstrual Date Menses Monthly On Bcp Conception Prior Menses Frequency Hcg Plus Date Menarche Onset Age Delivery Information Delivery Date Delivery Type Labor Anesthesia Weeks Gestation Incision Type Labor Labor Length Hrs Delivered By Post Complications Tubal Sterilization Discharge Date Comments 6 Discharge Information Feeding Method Contraceptive Method Maternal HG B and HCT Levels Ob Episode Information Episode Created Date Number of Fetuses Patient Bloodtype Patient rh Status Prepregnancy Weight lbs Domestic Partner Domestic Partner Phone Father Name Relish Blender Status 09/12/19 12 1 CLOSED Fetus Data First Name Last Name Admitted to NICU Weight (g) Sex Living Outcome Pediatric Complications Fetus ID Race Codes Race Delivery Type F Full Term [id number] Joss Calculation Initial Joss Date Initial Exam Date Initial Exam Provider Initial Ultrasound Date Last Menstrual Period Date Ultra Sound Weeks Gestation 0 Eighteen To Twenty Week Joss Update Ultra Sound Date Fundal Height At Umbil Quickening Date Ultra Sound Latest Weeks Gestation Final Joss Confirmed By Final Joss Confirmed Date Final Joss Date Ultra Sound Latest Days Gestation 0 0 Menstrual History Last Menstrual Date Menses Monthly On Bcp Conception Prior Menses Frequency Hcg Plus Date Menarche Onset Age Delivery Information Delivery Date Delivery Type Labor Anesthesia Weeks Gestation Incision Type Labor Labor Length Hrs Delivered By Post Complications Tubal Sterilization Discharge Date Comments 2 Discharge Information Feeding Method Contraceptive Method Maternal HG B and HCT Levels
--- OUTSIDE RECORDS SUMMARY | 2025-06-02 12:43 | XMS_ITS | Encounter Summary ---
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 Name Role Phone Mahin Malloy MD Primary Care Provider Reason for Visit * Reason Comments PRE-OP INSTRUCTIONS Encounter Details Date Type Department Care Team (Late st Contact Info) Description 09/09/2024 Telephone [facility] [address] [place] [phone] Gurinder Patel MD [address] [place] [address], [address] [address] PRE-OP INSTRUCTIONS Social History Tobacco Use Types Packs/Day Years [...] on file documented as of this encounter Miscellaneous Notes * Telephone Encounter - Mari Lott - 09/09/2024 2:42 PM EDT Copied from [facility] #[id number]. Topic: Appointment Scheduling - Existing Patient >> Sep 09, 2024 2:39 PM Mari Lott wrote: Called to speak with nurse arthur for pre op instruction/ informed pt that I will send message over to ryann clinical team and they will reach out to her documented in this encounter Plan of Treatment Upcoming Encounters Date Type Department Care Team (Late st Contact Info) Description 06/22/2025 9:45 AM EST [facility] [address] [facility] [address] [place] [address] Timbo Stiles DPM [address] [place] [address] 10/27/2025 9:15 AM EDT Office Visit [facility] [address] [facility] [address] [place] [id number] Gurinder Patel MD [address] [facility] [address] [place] [address] documented as of this encounter Visit Diagnoses Not on filedocumented in this encounter Care Teams Hydraulic Corrugating Machine Operator Relationship Specialty Start Date End Date Mahin Malloy MD [facility] [address] [facility] [address] [place], [place] [id number] PCP - General 11/18/11 documented as of this encounter
--- OUTSIDE RECORDS SUMMARY | 2025-06-02 12:44 | XMS_ITS | Patient Health Record ---
Author Organization [facility] Address [address] [place] [address] Care Team Providers Care Studio Designer Name Role Phone Mahin Malloy Primary Care Provider Clive Maguire Unavailable [phone] Vijay Rabago Unavailable [phone] Allergies Allergen (clinical drug ingredient) Drug/Non Drug Allergy documented on EMR Reaction Allergy Type Onset Date Status predniSONE Unknown Drug Allergy Active Sterapred Unknown Drug Allergy Active doxycycline Doxycycline Unknown Drug Allergy Act mishel penicillin Unknown Drug Allergy Active Reason For Referral No Information Medications Medication SIG (Take, Route, Frequency, Duration) Notes Start Date End Date Status Vitamin D3 *Pick strength-form from [employer] for eRX* 11/07/2020 Active Ondansetron 4 MG Tablet Disintegrating Oral; Duration: 4 Not-Taking Aspirin 81 *Pick strength-form from [employer] for eRX* 11/07/2020 Active Breo Ellipta 200-25 MCG/INH Aerosol Powder Breath Activated 1 puff Inhalation Once a day *Pick strength-form from [employer] for eRX* Not-Taking Ezetimibe *Pick strength-form from [employer] for eRX* Active HYDROcodone-Acetamino phen 5-325 MG Tablet 1 tablet as needed Orally every 6 hrs 11/07/2020 Not-Taking Febuxostat 40 MG Tablet Oral; Duration: 28 Active Clopidogrel Bisulfate 75 MG Tablet Oral; Duration: 90 Not-Taking Chlorthalidone 25 MG Tablet Oral; Duration: 90 Active Benzonatate *Pick strength-form from [employer] for eRX* 11/07/2020 Not-Taking Albuterol Sulfate HFA *Pick strength-form from [employer] for eRX* 11/07/2020 Not-Taking Losartan Potassium 100 MG Tablet Oral; Duration: 90 Active Spironolactone 25 MG Tablet Oral; Duration: 90 Active Hyoscyamine *Reorder from [employer] [facility] for eRx and Interaction Alerts* 11/07/2020 Not-Taking Gabapentin 300 MG Capsule 1 capsule Orally in the morning, 1 capsule in the afternoon, 2 capsules nightly; Duration: 30 days Updated prescription. 04/26/2025 Active Rosuvastatin Calcium *Pick strength-form from [employer] ([employer] for eRX* Active Azithromycin 250 MG Tablet Oral; Duration: 5 Not-Taking Simvastatin 10 MG Tablet Oral; Duration: 90 Active Propranolol HCl ER 60 MG Capsule Extended Release 24 Hour Oral; Duration: 30 Not-Taking metroNIDAZOLE 0.75 % Gel External; Duration: 20 Days Active Doxycycline Hyclate 100 MG Capsule Oral; Duration: 10 Not-Taking Immunizations Vaccine Route Administration Date Status Comme nts Influenza, high dose seasonal Unknown 02/08/2021 Administered Immunization Giv en by from source eCW:: Influenza, high dose seasonal Unknown 05/20/2022 Refused Immunization Giv en by from source eCW:: Pneumococcal polysaccharide PPV23 Unknown 06/22/2014 Administered Immunizatio n Given by from source eCW:: Social History Tobacco Use: Social History Observation Description Date Details (start date - stop date) Never Smoker NA - NA Sex Assigned At : Social History Observation Description Sex Assigned At Female Social History Drug/Alcohol: Social Info Question Answer Notes AUDIT-C (Standard) Did you have a drink containing alcohol in the past year? Yes How often did you have a drink containing alcohol in the past year? Never (0 point) How many drinks did you have on a typical day when you were drinking in the past year? 1 or 2 drinks (0 point) How often did you have six or more drinks on one occasion in the past year? Less than monthly (1 point) Points 1 Interpretation Negative Tobacco Use: Social Info Question Answer Notes Tobacco Control (Standard) Tobacco use: Nonsmoker Additional Details Category Social Info Options Details Miscellaneous: Exercise: 1 to 2 times per week Do you have any litigation i nvolved? (i.e. 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 Yes How many drinks did you have on a typical day when you were drinking in the past year? 3 or 4 drinks How often did you have a drink containing alcoho l in the past year? Monthly or less How often did you have 6 or more drinks on one occasion in the past year? Never Migrated Social History Drugs/Alcohol: (Alcohol Screen (Audit-C)): How often did you have 6 or more drinks on one occasion in the past year? Never (0 point), How many drinks did you have on a typical day when you were drinking in the past year? 1 or 2 drinks (0 point), How often did you have a drink containing alcohol in the past year? Never (0 point), Did you have a drink containing alcohol in the past year? Yes, Points 0, Interpretation Negative Miscellaneous: (Occupation:): Retired Tobacco Use: (Tobacco Use/Smoking): Status: nonsmoker, Additional Findings: Tobacco Non-User Current non-smoker *Do not use*Tobacco Use Do you use any tobacco product s? No Which tobacco products do you use, if any? None Drug Use Marijuana No Illicit Substance No Problems Problem Type SNOMED Code ICD Code Onset Dates Problem Status W/U Status Risk Notes Problem Chronic pain (65022335) Other chronic pain (G89.29) Active confirmed Problem Essential hypertension (59335672) Essential (primary) hypertension (I10) 019 Active confirmed 019 Problem Lumbosacral spondylosis without myelopathy (disorder) (54699262) Spondylosis without myelopathy or radiculopathy, lumbosacral region (M47.817) Active confirmed Problem Lumbosacral spondylosis without myelopathy (74286816) Other spondylosis, lumbar region (M47.896) Active confirmed Problem Lumbosacral spondylosis without myelopathy (88743696) Other spondylosis, lumbosacral region (M47.897) Active confirmed Problem Lumbar radiculopathy (150007971) Radiculopathy, lumbar region (M54.16) Active confirmed Problem Lumbosacral radiculopathy (5814365) Radiculopathy, lumbosacral region (M54.17) Active confirmed Problem Spinal stenosis of lumbar region (93501243) Intervertebral disc stenosis of neural canal of lumbar region (M99.53) Active confirmed Problem Degeneration of lumbar intervertebral disc (disorder) (19777332) Other intervertebral disc degeneration, lumbar region without mention of lumbar back pain or lower extremity pain (M51.369) Active confirmed Problem Lumbar spondylosis (560094250) Lumbar spondylosis (M47.816) Active confirmed Problem Arthropathy of lumbar facet joint (650271149) Lumbar facet arthropathy (M47.816) Active confirmed Problem Degeneration of lumbar intervertebral disc (09372589) Lumbar degenerative disc disease (M51.36) Active confirmed Problem Displacement of lumbar intervertebral disc without myelopathy (37317063) Bulging of lumbar intervertebral disc (M51.26) Active confirmed Problem Lumbar radicular pain (1258623669) Lumbar radicular pain (M54.16) Active confirmed Problem Arthropathy of lumbar facet joint (304730631) Lumbar facet arthropathy (M12.88) Active confirmed Problem Lumbar radiculopathy (189756185) Radiculopathy of lumbar region (M54.16) Active confirmed Problem Lumbar spinal stenosis (55460918) Lumbar spinal stenosis (M48.061) Active confirmed Problem Prolapsed lumbar intervertebral disc (101843636) Lumbar disc herniation (M51.26) Active confirmed Problem Acquired spondylolisthesis (797495278) Lumbar spondylolysis (M43.06) Active confirmed Vital Signs Heart Rate 72 /min 04/26/2025 Height-cm 160.02 cm 04/26/2025 Blood pressure diastolic 59 mm Hg 04/26/2025 Weight-kg 86.18 kg 04/26/2025 Height 63 in 04/26/2025 Blood pressure systolic 106 mm Hg 04/26/2025 Weight 190 lbs 04/26/2025 BMI 33.65 kg/m2 04/26/2025 Encounters Encounter Location Date Provider Diagnosis [facility] [address] [place] [address] 06/17/2024 Clive Pollard Radiculopathy of lumbar region M54.16 ; Essential (primary) hypertension I10 ; Lumbar radicular pain M54.16 ; Other chronic pain G89.29 ; Myofascial muscle pain M79.18 ; Bulge of lumbar disc without myelopathy M51.369 ; Degeneration of intervertebral disc of lumbosacral region, unspecified whether pain present M51.379 ; Lumbar spondylosis M47.816 ; Lumbar facet arthropathy M12.88 ; Spondylosis without myelopathy or radiculopathy, lumbosacral region M47.817 ; Lumbar degenerative disc disease M51.36 ; Bulging of lumbar intervertebral disc M51.26 ; Lumbar facet arthropathy M47.816 ; Low back pain M54.5 and Lumbar spinal stenosis M48.061 [facility] [address] [place] [address] 08/17/2024 Clive Francoaver Essential hypertensi on I10 ; Lumbar spondylosis M47.816 ; Lumbar facet arthropathy M12.88 ; Spondylosis without myelopathy or radiculopathy, lumbosacral region M47.817 ; Other chronic pain G89.29 ; Myofascial muscle pain M79.18 ; Bulge of lumbar disc without myelopathy M51.369 and Degeneration of intervertebral disc at L5-S1 level M51.379 [facility] [address] [place] [address] [place] [phone] 10/19/2024 Cliveshara Pollard Lumbar facet arthropathy M47.816 ; Other spondylosis, lumbar region M47.896 ; Other spondylosis, lumbosacral region M47.897 ; Myofascial pain M79.18 and Other intervertebral disc degeneration, lumbar region without mention of lumbar back pain or lower extremity pain M51.369 [facility] [address] [place] [address] [place] [phone] 12/22/2024 Clive Francoaver Radiculopathy, lumba r region M54.16 ; Intervertebral disc stenosis of neural canal of lumbar region M99.53 and Myofascial pain M79.18 [facility] [address] [place] [address] [place] [phone] 02/23/2025 Clive Pollard Lumbar facet arthropathy M47.816 ; Myofascial pain M79.18 and Other intervertebral disc degeneration, lumbar region without mention of lumbar back pain or lower extremity pain M51.369 [facility] [address] [place] [address] [address] [place] [address] 04/26/2025 Clive Pollard Lumbar facet arthropathy M47.816 ; Myofascial pain M79.18 and Other intervertebral disc degeneration, lumbar region without mention of lumbar back pain or lower extremity pain M51.369 [facility] [address] [address] 06/08/2024 Vijya Rabago [facility] [address] [address] 06/10/2024 Clive Pollard [facility] [address] [phone] 09/27/2024 [facility] [address] [phone] 04/26/2025 Clive Pollard Assessments Encounter Date Diagnosis (ICD Code) Assessment Notes Treatment Notes Treatment Clinical Notes Section Notes 06/17/2024 Essential (primary) hypertension (ICD-10 - I10) 06/17/24 06/17/2024 Radiculopathy of lumbar region (ICD-10 - M54.16) 08/17/2024 Essential hypertension (ICD-10 - I10) 06/0910/19/2024 Other spondylosis, lumbar region (ICD-10 - M47.896) 10/19/2024 Lumbar facet arthropathy (ICD-10 - M47.816) 12/22/2024 Radiculopathy, lumbar region (ICD-10 - M54.16) 12/22/2024 Intervertebral disc stenosis of neural canal of lumbar region (ICD-10 - M99.53) 02/23/2025 Lumbar facet arthropathy (ICD-10 - M47.816) 02/23/2025 Myofascial pain (ICD-10 - M79.18) 04/26/2025 Lumbar facet arthropathy (ICD-10 - M47.816) 04/26/2025 Myofascial pain (ICD-10 - M79.18) 04/26/2025 Other intervertebral disc degeneration, lumbar region without mention of lumbar back pain or lower extremity pain (ICD-10 - M51.369) 12/22/2024 Myofascial pain (ICD-10 - M79.18) 02/23/2025 Other intervertebral disc degeneration, lumbar region without mention of lumbar back pain or lower extremity pain (ICD-10 - M51.369) 10/19/2024 Other spondylosis, lumbosacral region (ICD-10 - M47.897) 08/17/2024 Lumbar spondylosis (ICD-10 - M47.816) 06/17/2024 Lumbar radicular pain (ICD-10 - M54.16) 06/17/2024 Other chronic pain (ICD-10 - G89.29) 08/17/2024 Lumbar facet arthropathy (ICD-10 - M12.88) 10/19/2024 Myofascial pain (ICD-10 - M79.18) 10/19/2024 Other intervertebral disc degeneration, lumbar region without mention of lumbar back pain or lower extremity pain (ICD-10 - M51.369) 08/17/2024 Spondylosis without myelopathy or radiculopathy, lumbosacral region (ICD-10 - M47.817) 06/17/2024 Myofascial muscle pain (ICD-10 - M79.18) 06/17/2024 Bulge of lumbar disc without myelopathy (ICD-10 - M51.369) 08/17/2024 Other chronic pain (ICD-10 - G89.29) 06/17/2024 Degeneration of intervertebral disc of lumbosacral region, unspecified whether pain present (ICD-10 - M51.379) 08/17/2024 Myofascial muscle pain (ICD-10 - M79.18) 06/17/2024 Lumbar spondylosis (ICD-10 - M47.816) 08/17/2024 Bulge of lumbar disc without myelopathy (ICD-10 - M51.369) 08/17/2024 Degeneration of intervertebral disc at L5-S1 level (ICD-10 - M51.379) 06/17/2024 Lumbar facet arthropathy (ICD-10 - M12.88) 06/17/2024 Spondylosis without myelopathy or radiculopathy, lumbosacral region (ICD-10 - M47.817) 06/17/2024 Lumbar degenerative disc disease (ICD-10 - M51.36) 06/17/2024 Bulging of lumbar intervertebral disc (ICD-10 - M51.26) 06/17/2024 Lumbar facet arthropathy (ICD-10 - M47.816) 06/17/2024 Low back pain (ICD-10 - M54.5) 06/17/2024 Lumbar spinal stenosis (ICD-10 - M48.061) 06/17/2024 Other I had a lengthy discussion with the patient today regarding their pain, pain generators, and how they are affecting overall quality of life and functionality. As a primary pain generator for their radiculopathy, we will subsequently proceed with a epidural steroid injection to see if we can help some of the inflammatory aspect causing some of their radicular discomfort. As a secondary pain generator for thier multiple other pain generators, home behavioral modification and home physical therapy exercises were also discussed at length today. This is unrelated to the injections performed above today. We also discussed their lumbar degenerative disc disease today. We discussed conservative treatment options including topical aspects and therapy exercises. This was unrelated to the injection today. We also discussed and reviewed their imaging studies, including their MRI. We also discussed their medications at length today. We discussed the potential side effects, interactions, and benefits. We will continue with our current treatment plan. Home behavioral modification techniques were discussed. Home physical therapy exercises were discussed. ADDENDUM: Please note, I did spend greater than 15 minutes with the patient with over half of this in direct [id number] counseling regarding thier multiple different pain generators. This additional time spent was not related to the injection therapy that was performed today. We also did discuss their lumbar degenerative disc disease and conservative treatment options to help with this separate pain condition. They do have a chronic condition with progression/exac erbation of their symptoms and we did discuss treatment options including home behavioral modification techniques to help with this. We also discussed her inactivty during the colder weather and franca options to try to help. I also did give her a neuropathic agent in hopes of helping with the pain. Hopefully this will also be an opioid sparing agent in attempts to minimize her opioids as well. Will try to maintain effectiveness in the lowest possible, effective, dose. I did give her a Rx for gabapentin in hopes of helping with this as well. We also discussed her myofascial pain. As she is compensating for her back discomfort, she is having a significant amount of myofascial tightening. We did discuss myofascial release and stretching exercises to try to help with this as well. 08/17/2024 Other I had a lengthy discussion with the patient today regarding their pain, pain generators, and how they are affecting overall quality of life and functionality. We discussed the patient's imaging studies and their overall pathology. As a primary pain generator for their lumbar spondylosis and their lumbar facet arthropathy, we will subsequently proceed with a lumbar facet medial branch injection to see if we can help some of the inflammatory aspect causing some of their lower back axial discomfort. This will be both diagnostic and therapeutic as I do believe they are a good candidate for lumbar facet medial branch radiofrequency ablation. We also discussed the risks and benefits of this and they are very interested. Will schedule for this as well. As a secondary pain generator for their myofascial pain, discussed conservative measures including a TENS unit and myofascial release techniques. As they are compensating for their lumbar spondylosis, a large portion of their pain is originating from their lumbar myofascial components. We discussed at length. As a tertiary pain generator for thier multiple other pain generators, home behavioral modification and home physical therapy exercises were also discussed at length today. This is unrelated to the injections performed above today. We also discussed their degenerative disc disease today. We discussed conservative treatment options including topical aspects and therapy exercises. This was unrelated to the injection today. We also discussed their medications at length today. We discussed the potential side effects, interactions, and benefits. We will continue with our current treatment plan. ADDENDUM: Please note, I did spend greater than 15 minutes with the patient with over half of this in direct [id number] counseling regarding multiple different pain generators. This additional time spent was not related to the injection therapy that was performed today. We also did discuss their lumbar degenerative disc disease and conservative treatment options to help with this separate pain condition. They do have a chronic condition with progression/exac erbation of their symptoms and we did discuss treatment options including home behavioral modification techniques to help with this. I also did give her a neuropathic agent in hopes of helping with the pain. Hopefully this will also be an opioid sparing agent in attempts to minimize her opioids as well. Will try to maintain effectiveness in the lowest possible, effective, dose. I did give her a Rx for gabapentin in hopes of helping with this as well. We also discussed her antalgic gait and some mechanisms to try to help with this as well. 10/19/2024 Other I had a lengthy discussion with the patient today regarding their pain, pain generators, and how they are affecting overall quality of life and functionality. They have also attempted conservative care for over 12 weeks. They have attempted activity modification and avoidance of aggravating factors through rest when able. We also discussed and reviewed their imaging studies. As a primary pain generator for their lumbar facet joint arthropathy and lumbar spondylosis, we will subsequently proceed with a lumbar facet radiofrequency ablation to see if we can help some of the their lower back discomfort. We did discuss the risks and benefits associated with this and they report they would like proceed. As have they meet all criteria, we will proceed with this today in hoped of providing with a more prolonged therapeutic option. We also discussed their medications at length today. We discussed the potential side effects, interactions, and benefits. We discussed the goal of trying tomaximize the efficacy while maintaining the lowest possible dose. We diddiscuss that all medications do have side effects, and we did go over thepotential side effects associated with each of the medications. All questions were answered. We will continue with our current treatment plan. If any controlled medications are being prescribed, an opioid risk tool was also utilized. Also, the [place] Prescription Monitoring Program was also reviewed and appropriate. Urine drug screening and monitoring were alsoperformed according to clinic policy. We also reviewed the opioid agreement and the Chronic Pain Agreement as well. We also discussed their myofascial pain. Asthey are compensating for their back discomfort, they are havinga significant amount of myofascial tightening over the lumbar erectae and quadratus lumboris. We did discuss myofascial release and stretching exercises to try to help with this as well. We will also proceed per the patient's request with a lumbar trigger point injection to help with this as well. We also discussed their lumbar degenerative disc disease today. We discussed a multimodal treatment approach including conservative treatment options,therapy, medications, and interventional procedures. We also discussed the importance of maintaining a healthy weight in addition to core strengthand stability. This additional treatment was unrelated to the injection today. It is medically necessary to proceed with both the lumbar radiofrequency ablation and the trigger point injection during today's visit. The patient is experiencing significant pain and is limited in their activities of daily living due to the pain of each medical condition. Both procedures are essential and performed today to help improve the patient's quality of life and functionality. We also discussed her overdoing thisgn with her sister. We did also discuss some biofeedback mechanisms and preventative measures to try to help with the pain as well. We did discuss them overdoing things and some options to help as well. I also did show her a copy of her x-ray images and explained these in detail to her, especially her lumbar degenerative disc disease. I also did give her a neuropathic agent in hopes of helping with the pain. Hopefully this will also be an opioid sparing agent in attempts to minimize her opioids as well. Will try to maintain effectiveness in the lowest possible, effective, dose. I did give her a Rx for gabapentin in hopes of helping with this as well. 12/22/2024 Other I had a lengthy discussion with the patient today regarding their pain, pain generators, and how they are affecting overall quality of life and functionality. They have also attempted conservative care for over 12 weeks. They have attempted activity modification and avoidance of aggravating factors through rest when able. We also discussed and reviewed their imaging studies. As a primary pain generator for their lumbar radiculopathy, we will subsequently proceed with a lumbar epidural steroid injection to see if we can help some ofthe inflammatory aspect causing their discomfort. We also discussed their medications at length today. We discussed the potential side effects, interactions, and benefits. We discussed the goal of trying tomaximize the efficacy while maintaining the lowest possible dose. We diddiscuss that all medications do have side effects, and we did go over thepotential side effects associated with each of the medications. All questions were answered. We will continue with our current treatment plan. If any controlled medications are being prescribed, an opioid risk tool wasalso utilized. Also, the [place] Prescription Monitoring Program was also reviewed and appropriate. Urine drug screening and monitoring were alsoperformed according to clinic policy. We also reviewed the opioid agreement and the Chronic Pain Agreement as well. We also discussed their lumbar degenerative disc disease today. We discussed a multimodal treatment approach including conservative treatment options,therapy, medications, and interventional procedures. We also discussed the importance of maintaining a healthy weight in addition to core strengthand stability. This additional treatment was unrelated to the injection today. I also did show her a copy of her x-ray images and explained these in detail to her, especially her lumbar degenerative disc disease. I also did give her a neuropathic agent in hopes of helping with the pain. Hopefully this will also be an opioid sparing agent in attempts to minimize her opioids as well. Will try to maintain effectiveness in the lowest possible, effective, dose. I did give her a Rx for gabapentin in hopes of helping with this as well. We also discussed the importance of stayig active as well. We also discussed some home therapy exercises including core strengthening and stabilization techniques to try to help. 02/23/2025 Other I am pleased that the combination of the injections and medications are helping her so much. They have allowed her to avoid surgical intervention. They have also allowed her to maintain a lower dosage of medications. We will proceed with an intermittent injection to keep her as mobile and functional as possible with the highest quality of life. I had a lengthy discussion with the patient today regarding their pain, pain generators, and how they are affecting overall quality of lifeand functionality. They have also attempted conservative care for over 12 weeks. They have attempted activity modification and avoidance of aggravating factors through rest when able. We also discussed and reviewed their imaging studies. As a primary pain generator for their lumbar facet arthropathy and lumbar spondylosis, we will subsequently proceed with a lumbar facet injection to see if we can help some ofthe inflammatory aspect causing their discomfort. We also discussed their medications at length today. We discussed the potential side effects, interactions, and benefits. We discussed the goal of trying tomaximize the efficacy while maintaining the lowest possible dose. We diddiscuss that all medications do have side effects, and we did go over thepotential side effects associated with each of the medications. All questions were answered. We will continue with our current treatment plan. If any controlled medications are being prescribed, an opioid risk tool wasalso utilized. Also, the [place] Prescription Monitoring Program was also reviewed and appropriate. Urine drug screening and monitoring were alsoperformed according to clinic policy. We also reviewed the opioid agreement and the Chronic Pain Agreement as well. We also discussed their myofascial pain. As they are compensating for their back discomfort, they are having a significant amount of myofascial tightening over the lumbar erectae and quadratus lumboris. We did discuss myofascial release and stretching exercises to try to help with this as well. We will also proceed with a lumbar trigger point injection to help with some of the myofascial discomfort. We also discussed their lumbar degenerative disc disease. We discussed a multimodal treatment approach including conservative treatment options,therapy, medications, and interventional procedures. We also discussed the importance of maintaining a healthy weight in addition to core strengthand stability. This additional treatment was unrelated to the injection today. It is medically necessary to proceed with both the lumbar facet injection and the trigger point injection during today's visit. The patient is experiencing significant pain and is limited in their activities of daily living due to the pain of each medical condition. Both procedures are essential and performed today to help improve the patient's quality of life and functionality. . We did discuss her overdoing things partying. We did also discuss some biofeedback mechanisms and preventative measures to try to help with the pain as well. We did discuss them overdoing things and some options to help as well. I also did give her a neuropathic agent in hopes of helping with the pain. Hopefully this will also be an opioid sparing agent in attempts to minimize her opioids as well. Will try to maintain effectiveness in the lowest possible, effective, dose. I did give her a Rx for gabapentin in hopes of helping with this as well. We also discussed some home therapy exercises including core strengthening and stabilization techniques to try to help. 04/26/2025 Other I am pleased that the combination of the injections and medications are helping so much. The injections have allowed them to maintain a lower dosage of medications and be more mobile and functional. We will proceed with an intermittent injection to keep the highest quality of life and functionality. I had a lengthy discussion with the patient today regarding their pain, pain generators, and how they are affecting overall quality of life and functionality. They have also attempted conservative care for over 12 weeks. They have attempted activity modification and avoidance of aggravating factors through rest when able. We also discussed and reviewed their imaging studies. As a primary pain generator for their lumbar facet joint arthropathy and lumbar spondylosis, we will subsequently proceed with a lumbar facet radiofrequency ablation to see if we can help some of the their lower back discomfort. We did discuss the risks and benefits associated with this and they report they would like proceed. As they have meet all criteria, we will proceed with this today in hopes of providing a more prolonged therapeutic option. We also discussed their medications at length today. We discussed the potential side effects, interactions, and benefits. We discussed the goal of trying to maximize the efficacy while maintaining the lowest possible dose. We did discuss that all medications do have side effects, and we did go over the potential side effects associated with each of the medications. All questions were answered. If any controlled medications are being prescribed, an opioid risk tool was also utilized. Also, the [place] Prescription Monitoring Program was reviewed and appropriate. Urine drug screening and monitoring were also performed according to clinic policy. We also reviewed the opioid agreement and the Chronic Pain Agreement as well. We also discussed their myofascial pain. As they are compensating for their back discomfort, they are having a significant amount of myofascial pain as a compensatory mechanism. We did discuss myofascial release and stretching exercises to try to help with this as well. We will also proceed per the patient's request with a lumbar trigger point injection to help with this as well. We also discussed their lumbar degenerative disc disease today. We discussed a multimodal treatment approach including conservative treatment options,therapy, medications, and interventional procedures. We also discussed the importance of maintaining a healthy weight in addition to core strength and stability. This additional treatment was unrelated to the injection today. It is medically necessary to proceed with both the lumbar radiofrequency ablation and the trigger point injection during today's visit. The patient is experiencing significant pain and is limited in their activities of daily living due to the pain of each medical condition. Both procedures are essential and performed today to help improve the patient's quality of life and functionality. . We also discussed her traveling and overdoing things. We did also discuss some biofeedback mechanisms and preventative measures to try to help with the pain as well. We did discuss them overdoing things and some options to help as well. We also discussed some home therapy exercises including core strengthening and stabilization techniques to try to help. I also did give her a neuropathic agent in hopes of helping with the pain. Hopefully this will also be an opioid sparing agent in attempts to minimize her opioids as well. Will try to maintain effectiveness in the lowest possible, effective, dose. I did give her a Rx for gabapentin in hopes of helping with this as well. ADDENDUM: Following the procedure today, Ta was able to get off the procedure table by herself without any assistance. She was then able to walk to the recovery area. After sitting for approximately 20 minutes, I did discharge Ta. She attemted to stand and after standing, [...] needed assistance walking up and down the hallway. Plan Of Treatment Pending Test Test Name Order Date MRI : Lumbar Spine without Contrast 07/10 Lumbar Transforaminal Epidural 2 Lumbar Transforaminal Epidural 2 Lumbar Transforaminal Epidural 2 Lumbar Transforaminal Epidural 2 Lumbar Transforaminal Epidural 3 Lumbar Transforaminal Epidural 3 Lumbar Facet Injection 07/24/2022 Lumbar Facet Injection 12/04/2022 Lumbar Facet Injection 03/28/2023 Lumbar Facet Injection 07/21/2023 Lumbar Facet Injection 11/24/2023 Lumbar Facet Injection 03/29/2024 Next Appt Details Provider Name:Clive Pollard , 07/04/2025 10:15:00 AM, [address] [facility] [facility], [address], [place], [address], [phone] Insurance Providers Payer Name Payer Address Payer Phone Subscriber Number Group Number Insured Name Patient Relationship to Insured Coverage Start Date Coverage End Date [employer] [place] - J11 [address] [place] [phone] [id number] TA MCPHERSON Self - patient is the insured 0 [facility] Supplemental Plan [address] [place] [address] [id number] TA MCPHERSON Self - patient is the insured Medical (General) History Medical History History ICD Code Please check any medical iss ue(s) that you are currently being treated for:: bladder incontinence,hypertension Please check any medical iss ue(s) that you are currently being treated for:: arthritis,bladder incontinence,hypertension undefined Please check any medical iss ue(s) that you are currently being treated for:: arthritis,hypertension Please check any medical iss ue(s) that you are currently being treated for:: arthritis,asthma,bladder incontinence,hypertension undefined Please check any medical iss ue(s) that you are currently being treated for:: arthritis,asthma,bladder incontinence,hypertension,seizures undefined Surgical History Surgery Date(Month/Year) breast biopsy gall bladder right knee hemorrhoidectomy
--- OUTSIDE RECORDS SUMMARY | 2025-06-02 12:44 | XMS_ITS | Encounter Summary ---
Author Organization [facility] Address [address], [address] [place] [address] Care Team Providers Care Frit Mixer Name Role Phone Mahin Malloy MD Primary Care Provider [phone] Reason for Referral * Imaging (Routine) - Closed Specialty Diagnoses / Procedures Referred By Contac t Referred To Contact Radiology Diagnoses Elevated coronary artery calcium score Procedures CTA CARDIAC W C STRC MORP W CONTRAST Mahin Malloy MD [address] [place] [address] Phone: tel: fax: Referral ID Status Reason Start Date Expiration Date Visits Re quested Visits Authorized [id number] Closed 09/26/2022 09/26/2023 1 1 Encounter Details Date Type Department Care Team (Late st Contact Info) Description 09/26/2022 Transcribe Orders [facility] SCHEDULING [address] [place] [address] Mahin Malloy MD [address] [place] [address] Elevated coronary artery calcium score (Primary Dx) Social History Tobacco Use Types [...] on file Sexual Orientation Not on file COVID-19 Exposure Response Date Recorded In the last 10 days, have yo u been in contact with someone who was confirmed or suspected to have Coronavirus/COVID-19? No / Unsure 09/26/2022 3:33 PM EDT documented as of this encounter Plan of Treatment Upcoming Encounters Date Type Department Care Team (Late st Contact Info) Description 08/19/2025 8:30 AM EDT Appointment [address] [address] MCR; [facility]ARP--- DEXA // Z78.0 // FAX Scheduled Orders Name Type Priority Associated Diagnoses Orde r Schedule CTA CARDIAC W C STRC MORP W CONTRAST Imaging Routine Elevated coronary artery calcium score Expected: 09/26/2022, Expires: 09/27/2023 documented as of this encounter Visit Diagnoses Diagnosis Elevated coronary artery calcium score- Primary documented in this encounter Care Teams Frit Mixer Relationship Specialty Start Date End Date Mahin Malloy MD [address] [place] [address] PCP - General 04/14/12 documented as of this encounter
--- OUTSIDE RECORDS SUMMARY | 2025-06-02 12:44 | XMS_ITS | Encounter Summary ---
Author Organization [facility] Address [address] [place] [address] Care Team Providers Care Supervisor Car And Yard Name Role Phone Mahin Malloy MD Primary Care Provider [phone] Encounter Details Date Type Department Care Team (Late st Contact Info) Description 09/29/2023 Orders Only CLINICAL [address] [place] [address] Provider, Unknown Social History Tobacco Use Types Packs/Day Years Used Date Smoking Tobacco: Never Smokeless Tobacco: Never Comments Unknown Sex and Gender Information Value [...] [facility] [address] [place] [address] Timbo Stiles, NELLY [address] [facility] [address] [place], [place] [id number] 10/27/2025 9:15 AM EDT Office Visit [facility] [address] [facility] [place] [address] Gurinder Patel MD [address] [facility] [place] [address] documented as of this encounter Procedures Procedure Name Priority Date/Time Associated Diagnosis Comments REFERRAL TO [facility] 09/29/2023 7:12 AM EDT documented in this encounter Results * REFERRAL TO WE[facility] MANAGEMENT CLINIC (09/29/2023 7:12 AM EDT) 09/29/2023 7:12 AM EDT Narrative 09/29/2023 7:10 AM EDT Ordered by an unspecified provider. us Unknown Provider OUTPATIENT REFERRAL Final Resul t documented in this encounter Visit Diagnoses Not on filedocumented in this encounter Care Teams Supervisor Car And Yard Relationship Specialty Start Date End Date Mahin Malloy MD [facility] [address] [place] [address] PCP - General 11/18/11 documented as of this encounter
--- OUTSIDE RECORDS SUMMARY | 2025-06-02 12:44 | XMS_ITS | Encounter Summary ---
Author Organization [facility] Address [address] [place] [address] Care Team Providers Care Nurse Transitional Name Role Phone Mahin Malloy MD Primary Care Provider [phone] Reason for Referral * Imaging (Routine) - Closed Specialty Diagnoses / Procedures Referred By Contac t Referred To Contact Radiology Diagnoses Elevated coronary artery calcium score Procedures NM MYOCARDIAL SPECT REST EXERCISE OR RX Mahin Malloy MD [address] [place] [address] Phone: tel: fax: Referral ID Status Reason Start Date Expiration Date Visits Re quested Visits Authorized [id number] Closed 10/03/2022 10/03/2023 1 1 Encounter Details Date Type Department Care Team (Late st Contact Info) Description 10/03/2022 Transcribe Orders [facility] SCHEDULING [address] [place] [address] Mahin Malloy MD [address] [place] [address] Elevated coronary artery calcium score [...] Info) Description 08/19/2025 8:30 [place] [address] MCR; [facility]--- DEXA // Z78.0 // FAX Scheduled Orders Name Type Priority Associated Diagnoses Orde r Schedule NM MYOCARDIAL SPECT REST EXERCISE OR RX Imaging Routine Elevated coronary artery calcium score Ordered: 10/03/2022 documented as of this encounter Visit Diagnoses Diagnosis Elevated coronary artery calcium score- Primary documented in this encounter Care Teams Nurse Transitional Relationship Specialty Start Date End Date Mahin Malloy MD [address] [place] [address] PCP - General 04/14/12 documented as of this encounter
--- OUTSIDE RECORDS SUMMARY | 2025-06-02 12:44 | XMS_ITS | Encounter Summary ---
Author Organization [facility] Address [address] [place] [address] Care Team Providers Care Engineering Supplies Sales Name Role Phone Mahin Malloy MD Primary Care Provider [phone] Reason for Referral * Consult, Test & Treat (Routine) - Closed Specialty Diagnoses / Procedures Referred By Contac t Referred To Contact Family Practice [facility] [address] [place] [address] Phone: tel: Referral ID Status Reason Start Date Expiration Date Visits Re quested Visits Authorized [id number] Closed 02/17/2023 02/18/2024 1 1 Encounter Details Date Type Department Care Team (Late st Contact Info) Description 02/17/2023 Orders Only [facility] [address] [place] [address] Provider, Historical Social History Tobacco Use Types Packs/Day Years Used Date Smoking Tobacco: Never Assessed Comments Unknown Sex and Gender Information Value Date Recorded Sex Assigned at Female 09/13/2022 10:35 AM EDT Legal Sex Female 5:50 PM EDT Gender Identity Female 09/13/2022 10:35 AM EDT Sexual Orientation Not on file documented as of this encounter Plan of Treatment Upcoming Encounters Date Type Department Care Team (Late st Contact Info) Description 06/22/2025 9:45 AM EST Office Visit [facility] [address] [place] [address] Timbo Stiles DPM [address] [place] [address] 10/27/2025 9:15 AM EDT Office Visit [facility] [address] [facility] [address] [place] [address] Gurinder Patel MD [address] [place], [place] [id number] documented as of this encounter Procedures Procedure Name Priority Date/Time Associated Diagnosis Comments REFERRAL TO FAMILY PRACTICE Non-Urgent 02/11/2023 documented in this encounter Results * REFERRAL TO FAMILY PRACTICE (02/11/2023) us Historical Provider OUTPATIENT REFERRAL Final Re sult documented in this encounter Visit Diagnoses Not on filedocumented in this encounter Care Teams Engineering Supplies Sales Relationship Specialty Start Date End Date Mahin Malloy MD [facility] [address] [place] [address] PCP - General 11/18/11 documented as of this encounter
--- OUTSIDE RECORDS SUMMARY | 2025-06-02 12:44 | XMS_ITS | Encounter Summary ---
Author Organization [facility] Address [address] [place] [address] Care Team Providers Care Game Author Name Role Phone Mahin Mallyo MD Primary Care Provider [phone] Encounter Details Date Type Department Care Team (Late st Contact Info) Description 10/07/2022 Orders Only [facility] [address] [facility] [address] [place] [address] Provider, [facility] Historical Social History Tobacco Use Types Packs/Day [...] [facility] [address] [place] [address] Timbo Stiles DPM [address] [facility] [address] [place] [address] 10/27/2025 9:15 AM EDT Office Visit [facility] [address] [facility] [address] [place] [address] Gurinder Patel MD [address] [facility] [place] [address] documented as of this encounter Procedures Procedure Name Priority Date/Time Associated Diagnosis Comments LAB TYPE-IN Routine 08/19/2022 documented in this encounter Results * Lab Type-In (08/19/2022) Other (Unspecified) [facility] [place] LAB CHEMISTRY ORDERABLES Final Result documented in this encounter Visit Diagnoses Not on filedocumented in this encounter Care Teams Game Author Relationship Specialty Start Date End Date Mahin Malloy MD [facility] [address] [place] [address] PCP - General 11/18/11 documented as of this encounter
--- OUTSIDE RECORDS SUMMARY | 2025-06-02 12:44 | XMS_ITS | Encounter Summary ---
Author Organization [facility] Address [address] [place] [address] Care Team Providers Care Service Dog Trainer Name Role Phone Mahin Malloy MD Primary Care Provider [phone] Encounter Details Date Type Department Care Team (Late st Contact Info) Description 06/11/2021 Orders Only [facility] General Registration [address] [place] [address] Niko López MD [address] [place], [place] [id number] Social History Tobacco Use Types Packs/Day Years [...] [facility] [address] [facility] [address] [place] [address] Timbo Stiles DPM [address] [facility] [address] [place], [place] [address] 10/27/2025 9:15 AM EDT Office Visit [facility] [address] [facility] [address] [place] [address] Gurinder Patel MD [address] [facility] [address] [place] [address] Scheduled Orders Name Type Priority Associated Diagnoses Orde r Schedule CT REFERRAL Imaging Routine Once for 1 Oc currences starting 06/11/2021 documented as of this encounter Visit Diagnoses Not on filedocumented in this encounter Care Teams Service Dog Trainer Relationship Specialty Start Date End Date Mahin Malloy MD [facility] [address] [place] [address] [address] [place] [address] PCP - General 11/18/11 documented as of this encounter
--- OUTSIDE RECORDS SUMMARY | 2025-06-02 12:44 | XMS_ITS ---
Author Name Interface, [id number] lity Address [address] [place] [address] Organization [facility] Address [address] [place] [address] Support Name Relationship Address Phone GERARD MCPHERSON Child Unknown Unavailable JAE MCPHERSON Child Unknown Unavaila ble Allergies and Adverse Reactions Medication/Group Name Reaction Severity Date doxycycline 02/25/2025 prednisone Nausea 02/25/2025 Plan Date Type Value 02/24/2026 APPOINTMENT OV 15 MIN 02/17/2026 APPOINTMENT LAB 15 MIN 10/07/2025 APPOINTMENT TREATMENT 30 MIN 08/12/2025 APPOINTMENT LAB 15 MIN 08/12/2025 APPOINTMENT TREATMENT 30 MIN 06/17/2025 APPOINTMENT TREATMENT 30 MIN 04/15/2025 APPOINTMENT TREATMENT 30 MIN 02/25/2025 APPOINTMENT OV 15 MIN 02/25/2025 APPOINTMENT TREATMENT 30 MIN 02/25/2025 APPOINTMENT OV 15 MIN 04/15/2025 LAB_ORDER CBC w/ auto diff 04/15/2025 LAB_ORDER CMP 04/15/2025 LAB_ORDER ELVIA and SPEP mccabe el (with QIGS) 04/15/2025 LAB_ORDER Jerome/Lambda lig ht chains, free w/ ratio, serum 06/10/2025 LAB_ORDER CBC w/ auto diff 08/05/2025 LAB_ORDER CBC w/ auto diff 08/05/2025 LAB_ORDER Iron, TIBC, Ferr itin panel 08/05/2025 LAB_ORDER ELVIA and SPEP mccabe el (with QIGS) 08/05/2025 LAB_ORDER Jerome/Lambda lig ht chains, free w/ ratio, serum 08/05/2025 LAB_ORDER CBC w/ auto diff 09/30/2025 LAB_ORDER Vitamin B12 and Folate panel 09/30/2025 LAB_ORDER CBC w/ auto diff 09/30/2025 LAB_ORDER CMP 09/30/2025 LAB_ORDER ELVIA and SPEP mccabe el (with QIGS) 09/30/2025 LAB_ORDER Jerome/Lambda lig ht chains, free w/ ratio, serum 02/17/2026 LAB_ORDER Vitamin B12 and Folate panel 02/17/2026 LAB_ORDER CBC w/ auto diff 02/17/2026 LAB_ORDER Iron, TIBC, Ferr itin panel 02/17/2026 LAB_ORDER ELVAI and SPEP mccabe el (with QIGS) 02/17/2026 LAB_ORDER Jerome/Lambda lig ht chains, free w/ ratio, serum 02/17/2026 LAB_ORDER CMP Reason for Visit TREATMENT 30 MIN Encounters Date Name 02/25/2025 Monoclonal gammopath y Medications Date Name Route Dose Frequency Instructions Start Date End Date Status Fill Status Indication 12/01 Losarta n Oral active 09/26 Rosuvas tatin Calcium Oral active 02/25 Metroni dazole Vaginal Gel 0.75 % active 04/06 Febuxos tat Oral orally 40.0 mg -- active 01/31 Albuter ol HFA Inhaler 90 mcg/act uation inhalati on 2.0 qd active 09/20 Magnesi um Oxide Oral 2.0 tablet QHS active 06/28 Aspirin Oral po daily active 04/10 Calcium -Cholec alcifer ol Oral 600 mg-10 mcg (400 unit) active 07/07 Hyoscya mine Oral orally 1.0 tablet 4 times per day prn dyspepsia active 12/01 Clotrim azole-B etameth asone Topical Cream 1 %-0.05 % active 12/01 Ketocon azole Topical Cream 2 % active 04/06 Gabapen tin Oral orally 300.0 mg Take 1 pill by mouth in the a.m. and afternoon and 2 pill at night active 12/01 Spirono lactone Oral M-W-F active 07/26 Flutica sone-Vi lantero l Inhaler 200 mcg-25 mcg/dos e active 12/01 Ezetimi be Oral active 12/01 vitamin B12 1 MG/ML Injecta ble Solutio n subcutan eously 1000.0 mcg once 2025 active Vitamin B12 deficiency 12/01 vitamin B12 1 MG/ML Injecta ble Solutio n subcutan eously 1000.0 mcg once 2025 active Monoclonal gammopathy 12/01 vitamin B12 1 MG/ML Injecta ble Solutio n subcutan eously 1000.0 mcg once 2025 active Vitamin B12 deficiency 12/01 vitamin B12 1 MG/ML Injecta ble Solutio n subcutan eously 1000.0 mcg once 2025 active Monoclonal gammopathy 12/01 vitamin B12 1 MG/ML Injecta ble Solutio n subcutan eously 1000.0 mcg once 2025 active Monoclonal gammopathy 12/01 vitamin B12 1 MG/ML Injecta ble Solutio n subcutan eously 1000.0 mcg once 2025 active Vitamin B12 deficiency 08/10 vitamin B12 1 MG/ML Injecta ble Solutio n subcutan eously 1000.0 mcg once 2025 active Vitamin B12 deficiency 08/10 vitamin B12 1 MG/ML Injecta ble Solutio n subcutan eously 1000.0 mcg once 2025 active Monoclonal gammopathy Problems Diagnosis Status Date of Diagnosis Resolution Date CKD Active Monoclonal gammopathy Active Vitamin B12 deficiency Active Vital Signs Date Type Value 02/25/2025 Body Temperature 98.20 02/25/2025 Heart Beat 65.00 02/25/2025 BSA 1.91 02/25/2025 BMI 35.33 02/25/2025 Height 61.00 02/25/2025 Weight 187.00 02/25/2025 Pain Scale 0.00 02/25/2025 Respiratory Rate 18.00 02/25/2025 Oxygen Saturation 96.00 02/25/2025 Intravascular Systolic 114 02/25/2025 Intravascular Diastolic 73 04/15/2025 Heart Beat 88.00 04/15/2025 Body Temperature 96.60 04/15/2025 Pain Scale 0.00 04/15/2025 Intravascular Systolic 124 04/15/2025 Intravascular Diastolic 70 04/15/2025 Oxygen Saturation 98.00 04/15/2025 Height 61.00
--- OUTSIDE RECORDS SUMMARY | 2025-06-02 12:44 | XMS_ITS | Encounter Summary ---
Author Organization [facility] Address [address] [place] [address] Care Team Providers Care Gis Technician Name Role Phone Mahin Malloy MD Primary Care Provider [phone] Encounter Details Date Type Department Care Team (Late st Contact Info) Description 09/19/2023 Lab Requisition [facility] [address] [place] [address] Mahin Malloy MD [facility] [address] [place] [address] [address] [place], [place] [id number] Social History Tobacco Use Types Packs/Day Years [...] [facility] [address] [place] [address] Timbo Stiles DPM [address] [facility] [address] [place], [place] [id number] 10/27/2025 9:15 AM EDT Office Visit [facility] [address] [place] [address] Gurinder Patel MD [address] [place] [address] documented as of this encounter Procedures Procedure Name Priority Date/Time Associated Diagnosis Comments CBC WITH DIFFERENTIAL Routine 09/18/2023 11:17 AM EDT LAB DRAW FEE - IOP Routine 09/18/2023 11 :17 AM EDT HGB A1C WITH EST AVG GLUCOSE Routine 09/18/2023 11:17 AM EDT MICROALBUMIN RANDOM URINE Routine 09/18/2023 11:17 AM EDT LIPID COMPLETE PANEL Routine 09/18/2023 11:17 AM EDT CBC WITH DIFFERENTIAL Routine 09/18/2023 11:17 AM EDT URIC ACID Routine 09/18/2023 11:17 AM EDT COMPREHENSIVE METABOLIC PANEL Routine 09/18/2023 11:17 AM EDT documented in this encounter Results * CBC WITH DIFFERENTIAL AUTO (09/18/2023 11:17 AM EDT) WBC 8.2 4.0 - 11.0 K/uL 09/19/2023 3:45 PM EDT [facility] RBC 4.35 3.80 - 5.20 M/uL 09/19/2023 3:45 PM EDT [facility] HGB 12.8 11.7 - 16.1 g/dL 09/19/2023 3:45 PM EDT [facility] HCT 42.0 35.1 - 48.3 % 09/19/2023 3:45 PM EDT [facility] MCV 97 80 - 99 fL 09/19/2023 3:45 PM EDT [facility] MCH 29 26 - 34 pg 09/19/2023 3:45 PM EDT [facility] MCHC 31 31 - 36 g/dL 09/19/2023 3:45 PM EDT [facility] RDW 14.2 10.0 - 15.5 % 09/19/2023 3:45 PM EDT [facility] Platelet 287 140 - 440 K/uL 09/19/2023 3:45 PM EDT [facility] MPV 10.1 9.0 - 13.0 fL 09/19/2023 3:45 PM EDT [facility] Segmented Neutrophils (Auto) 68 40 - 75 % 09/19/2023 3:45 PM EDT [facility] Lymphocytes (Auto) 23 20 - 45 % 09/19/2023 3:45 PM EDT [facility] Monocytes (Auto) 7 3 - 12 % 09/19/19 3:45 PM EDT [facility] Eosinophils (Auto) 0 0 - 6 % 09/19/2023 3:45 PM EDT [facility] Basophils (Auto) 0 0 - 2 % 09/19/19 3:45 PM EDT [facility] Absolute Neutrophils (Auto) 5.6 1.8 - 7.7 K/uL 09/19/2023 3:45 PM EDT [facility] Absolute Lymphocytes (Auto) 1.9 1.0 - 4.8 K/uL 09/19/2023 3:45 PM EDT [facility] Absolute Monocytes (Auto) 0.6 0.1 - 1.0 K/uL 09/19/2023 3:45 PM EDT [facility] Absolute Eosinophils (Auto) 0.0 0.0 - 0.5 K/uL 09/19/2023 3:45 PM EDT [facility] Absolute Basophils (Auto) 0.0 0.0 - 0.2 K/uL 09/19/2023 3:45 PM EDT [facility] Blood BLOOD / Unknown 09/18/2023 1 1:17 AM EDT 09/19/2023 1:42 PM EDT us Mahin Malloy MD LAB HEMATOLOGY ORDERABLES Rachel l Result [facility] [address] [place] [id number], [place] [phone] * Draw Fee - IOP (09/18/2023 11:17 AM EDT) Blood BLOOD / Unknown 09/18/2023 1 1:17 AM EDT 09/19/2023 1:42 PM EDT us Mahin Malloy MD LAB CHEMISTRY ORDERABLES Final Result Performing Organization Address City/[facility]/ZIP Co de Phone Number [facility] [address] [place] [address], [place] [phone] * Uric Acid (09/18/2023 11:17 AM EDT) [facility] Uric Acid 5.3 2.2 - 7.7 mg/dL [facility]_ EUA 09/19/2023 3:45 PM EDT [facility] Blood BLOOD / Unknown 09/18/2023 1 1:17 AM EDT 09/19/2023 1:42 PM EDT us Mahin Malloy MD LAB CHEMISTRY ORDERABLES Final Result Performing Organization Address City/[facility]/ZIP Co de Phone Number [facility] [address] [address], [place] [phone] * (ABNORMAL) Microalbumin Random Urine (09/18/2023 11:17 AM EDT) Pathologist [facility] Microalbumin Random 29.4(H) 0.1 - 17.0 mg/L [facility]_EUA 09/19/2023 4:03 PM EDT [facility] Microalbumin/Crea tinine Ratio 16.2 0.0 - 30.0 [facility]_E[facility] 09/19/2023 4:03 PM EDT [facility] Creatinine Urine mg/dL 182 mg/dL [facility]_E[facility] 09/19/2023 4:03 PM EDT [facility] Urine URINE SPECIMEN / Unknown 09/18/2023 11:17 AM EDT 09/19/2023 1:42 PM EDT us Mahin Malloy MD LAB URINE ORDERABLES Final Res ult [facility] [address] [address], * (ABNORMAL) Lipid Complete Panel (09/18/2023 11:17 AM EDT) Cholesterol 123 110 - 200 mg/dL [facility] _EU 09/19/2023 3:45 PM EDT [facility] Triglyceride 114 40 - 149 mg/dL [facility] _EU 09/19/2023 3:45 PM EDT [facility] HDL 57 >=40 mg/dL [facility] _EUA 09/19/2023 3:45 PM EDT [facility] Cholesterol/HDL 2.2 0.0 - 5.0 [facility] _EUA 09/19/2023 3:45 PM EDT [facility] Non-HDL Cholesterol 66 <130 mg/dL [facility] _EUA 09/19/2023 3:45 PM EDT [facility] LDL CALCULATION 43(L) 50 - 99 mg/dL [facility] _EUA 09/19/2023 3:45 PM EDT [facility] VLDL CALCULATION 23 8 - 30 mg/dL [facility] _EUA 09/19/2023 3:45 PM EDT [facility] LDL/HDL Ratio 0.8 [facility] _EUA 09/19/2023 3:45 PM EDT [facility] Blood BLOOD / Unknown 09/18/2023 1 1:17 AM EDT 09/19/2023 1:42 PM EDT Narrative [facility] - 09/19/2023 3:45 PM EDT Cholesterol Recommended NCEP guidelines in mg/dL: Less than 200 Desirable 200 - 239 Borderline High Greater than or = 240 High Please Note: Total Chol/HDL Ratio Men Women 1/2 Avg. Risk 3.4 3.3 Avg. Risk 5.0 4.4 2X Avg. Risk 9.6 7.1 3X Avg. Risk 23.4 11.0 us Mahin Malloy MD LAB CHEMISTRY ORDERABLES Final Result Performing Organization Address City/[facility]/ZIP Co de Phone Number [facility] [address] [address], [place] [phone] * Hgb A1C With Est Avg Glucose (09/18/2023 11:17 AM EDT) Hemoglobin A1c 5.5 4.8 - 5.6 % 09/19/2023 4:55 PM EDT [facility] Estimated Average Glucose 110 91 - 123 mg/dL 09/19/2023 4:55 PM EDT [facility] Blood BLOOD / Unknown 09/18/2023 1 1:17 AM EDT 09/19/2023 1:42 PM EDT Narrative [facility] - 09/19/2023 4:55 PM EDT 5.7 - 6.4% is indicative of prediabetes. > 6.4% is indicative of diabetes. us Mahin Malloy MD LAB CHEMISTRY ORDERABLES Final Result Performing Organization Address City/[facility]/ZIP Co de Phone Number [facility] [address] [address], [place] [phone] * (ABNORMAL) Comprehensive Metabolic Panel (09/18/2023 11:17 AM EDT) Potassium 4.5 3.5 - 5.5 mmol/L [facility]_E[facility] 09/19/2023 3:45 PM EDT [facility] Sodium 141 133 - 145 mmol/L [facility]_E[facility] 09/19/2023 3:45 PM EDT [facility] Chloride 104 98 - 110 mmol/L [facility] S_EUA 09/19/2023 3:45 PM EDT [facility] Glucose 88 70 - 99 mg/dL [facility] S_EUA 09/19/2023 3:45 PM EDT [facility] Calcium 9.5 8.4 - 10.5 mg/dL [facility] S_EUA 09/19/2023 3:45 PM EDT [facility] Albumin 4.1 3.5 - 5.0 g/dL [facility]_E[facility] 09/19/2023 3:45 PM EDT [facility] SGPT (ALT) 19 5 - 40 U/L [facility]_E[facility] 09/19/2023 3:45 PM EDT [facility] SGOT (AST) 16 10 - 37 U/L [facility]_E[facility] 09/19/2023 3:45 PM EDT [facility] Bilirubin Total 0.4 0.2 - 1.2 mg/dL [facility]_E[facility] 09/19/2023 3:45 PM EDT [facility] Alkaline Phosphatase 73 40 - 120 U/L [facility] S_EUA 09/19/2023 3:45 PM EDT [facility] BUN 25(H) 6 - 22 mg/dL [facility] S_EUA 09/19/2023 3:45 PM EDT [facility] CO2 26 20 - 32 mmol/L [facility] S_EUA 09/19/2023 3:45 PM EDT [facility] Creatinine 1.0 0.8 - 1.4 mg/dL [facility] S_EUA 09/19/2023 3:45 PM EDT [facility] eGFR 54.7(L) >60.0 mL/min/1. 73 sq.m. [facility] S_E[facility] 09/19/2023 3:45 PM EDT [facility] Comment: eGFR calculation based on the Chronic Kidney Disease Epidemiology Collaboration (CKD-EPI) equation refit without adjustment for race. This eGFR is validated for stable chronic renal failure patients. This equation is unreliable in acute illness or patients with normal renal function. Globulin 1.9(L) 2.0 - 4.0 g/dL [facility]_E[facility] 09/19/2023 3:45 PM EDT [facility] A/G Ratio 2.2 1.1 - 2.6 ratio [facility] S_E[facility] 09/19/2023 3:45 PM EDT [facility] Total Protein 6.0(L) 6.2 - 8.1 g/dL [facility]_E[facility] 09/19/2023 3:45 PM EDT [facility] Anion Gap 11.0 3.0 - 15.0 mmol/L [facility]_E[facility] 09/19/2023 3:45 PM EDT [facility] Comment:Anion Gap calculatio n based on electrolyte reference ranges. Blood BLOOD / Unknown 09/18/2023 1 1:17 AM EDT 09/19/2023 1:42 PM EDT us Mahin Malloy MD LAB CHEMISTRY ORDERABLES Final Result [facility] [address] [address], [place] [phone] documented in this encounter Visit Diagnoses Not on filedocumented in this encounter Care Teams Gis Technician Relationship Specialty Start Date End Date Mahin Malloy MD [facility] [address] [place], [place] [id number] PCP - General 11/18/11 documented as of this encounter
--- OUTSIDE RECORDS SUMMARY | 2025-06-02 12:44 | XMS_ITS | Encounter Summary ---
Author Organization [facility] Address [address], [address] [place] [address] Care Team Providers Care Orthotist Prosthetist Name Role Phone Mahin Malloy MD Primary Care Provider [phone] Encounter Details Date Type Department Care Team (Late st Contact Info) Description 09/17/2022 Transcribe Orders [facility] SCHEDULING [address] [place] [address] Mahin Malloy MD [address] [facility] [address] [place] [address] Elevated coronary artery calcium score (Primary Dx) [...] Info) Description 08/19/2025 8:30 AM EDT Appointment [facility] [address] [place] [address] MCR; AARP--- DEXA // Z78.0 // FAX documented as of this encounter Visit Diagnoses Diagnosis Elevated coronary artery calcium score- Primary documented in this encounter Care Teams Orthotist Prosthetist Relationship Specialty Start Date End Date Mahin Malloy MD [address] [place] [id number] PCP - General 04/14/12 documented as of this encounter
--- OUTSIDE RECORDS SUMMARY | 2025-06-02 12:44 | XMS_ITS | Encounter Summary ---
Author Organization [facility] Address [address] [place] [address] Care Team Providers Care Tailman Name Role Phone Mahin Malloy MD Primary Care Provider [phone] Encounter Details Date Type Department Care Team (Late st Contact Info) Description 04/26/2021 Orders Only [facility] General Registration [address] [place] [address] Holger Brown MD [address] [facility] [id number] [place], [place] [id number] Social History Tobacco Use Types Packs/Day Years [...] [facility] [address] [facility] [address] [place] [address] Timbo Stiles DPM [address] [facility] [address] [place], [place] [id number] 10/27/2025 9:15 AM EDT Office Visit [facility] [address] [place] [address] Gurinder Patel MD [address] [place] [address] Scheduled Orders Name Type Priority Associated Diagnoses Orde r Schedule US REFERRAL Imaging Routine Once for 1 Oc currences starting 04/26/2021 documented as of this encounter Visit Diagnoses Not on filedocumented in this encounter Care Teams Tailman Relationship Specialty Start Date End Date Mahin Malloy MD [facility] [address] [place] [address] PCP - General 11/18/11 documented as of this encounter
--- OUTSIDE RECORDS SUMMARY | 2025-06-02 12:44 | XMS_ITS | Encounter Summary ---
Author Organization [facility] Address [address] [place] [address] Care Team Providers Care Director Paid Media Name Role Phone Mahin Malloy MD Primary Care Provider [phone] Encounter Details Date Type Department Care Team (Late st Contact Info) Description 10/04/2022 Transcribe Orders [facility] SCHEDULING [address] [place] [address] Mahin Malloy MD [address] [facility] [address] [place] [address] Elevated coronary artery calcium score (Primary Dx) [...] Info) Description 08/19/2025 8:30 AM EDT Appointment [facility] [address] [place] [address] MCR; AARP--- DEXA // Z78.0 // FAX documented as of this encounter Visit Diagnoses Diagnosis Elevated coronary artery calcium score- Primary documented in this encounter Care Teams Director Paid Media Relationship Specialty Start Date End Date Mahin Malloy MD [address] [place] [address] PCP - General 04/14/12 documented as of this encounter
--- OUTSIDE RECORDS SUMMARY | 2025-06-02 12:44 | XMS_ITS | Encounter Summary ---
Author Organization [facility] Address [address] [place] [address] Care Team Providers Care Mouthpiece Maker Name Role Phone Mahin Malloy MD Primary Care Provider [phone] Encounter Details Date Type Department Care Team (Late st Contact Info) Description 03/25/2023 Orders Only [facility] [address] [facility] [address] [place] [address] Provider, [facility] Historical Social History Tobacco Use Types Packs/Day [...] [facility] [address] [place] [id number] Timbo Stiles DPM [address] [facility] [address] [place] [address] 10/27/2025 9:15 AM EDT Office Visit [facility] [address] [facility] [address] [place] [address] Gurinder Patel MD [address] [facility] [place] [address] documented as of this encounter Procedures Procedure Name Priority Date/Time Associated Diagnosis Comments CARDIAC NUCLEAR REST/STRESS TEST Routine 10/15/2022 EKG 12-LEAD Routine 04/02/2019 documented in this encounter Results * CARDIAC NUCLEAR REST/STRESS TEST (10/15/2022) Anatomical Region Laterality Modality Chest [place] [facility] [place] RADNC ORDERABLES Final R esult * EKG 12-LEAD (04/02/2019) [facility] [place] ECG ORDERABLES Final Re sult documented in this encounter Visit Diagnoses Not on filedocumented in this encounter Care Teams Mouthpiece Maker Relationship Specialty Start Date End Date Mahin Malloy MD [facility] [address] [place] [address] PCP - General 11/18/11 documented as of this encounter
--- OUTSIDE RECORDS SUMMARY | 2025-06-02 12:45 | XMS_ITS | Data Portability ---
Author Organization [facility], [id number] LEIGH_IP Address [address] [place] [address] Care Team Providers Care Cna Gna Name Role Phone MELISSA MOE Primary Care Provider [phone] Assessment No assessment recorded. Plan of Treatment Reminders Order Date Submit Date Provider Last Modified By Organization Details Last Modified Time Details Appointments None recorded. Lab urinalysis, dipstick 2021 022 [email or web address] [id number] [facility], [address] [facility] [facility], [address], [place], [address], 11:50:15 culture, urine 2021 022 [place] [facility], [address] [facility], [facility] [address], [place], [address], 11:35:57 Referral None recorded. Procedures None recorded. Surgeries None recorded. Imaging MAMMO, screening, tomosynthes is, bilateral - Due in February 102024 025 [email or web address] Cc017_ [facility]_ma[facility]_ [facility], [address] [facility], [address], [place], [address], 15:30:40 MAMMO, screening, tomosynthes is, bilateral 2022 023 [email or web address] [email or web address]_ [facility]_ [facility], [address] [facility], [address], [place], [address], 4 10:22:32 US, pelvis, limited 2021 022 [email or web address] Not available 2 11:50:15 Medication Orders clotrimazol e 1 % topical cream 2023 024 JIMMY Not available 4 14:34:44 Provera 10 mg tablet 2021 022 Not available 3 10:33:03 Patient TargetsNo targets recorded. Patient InstructionsNo instructions recorded. Reason for Referral None Reported. Results Created Date Observation Date Name Description Value Unit Range Abnormal Flag Note LastModifiedBy Organization Detail LastModifiedTime 04/02/2004/07/2022 URINE CULTU RE, PEDROI NE urine culture, routine Final report Not Available [facility] ([facility]) [address], [place], [address], 04/07/2022 11:35:57 04/02/2004/07/2022 URINE CULTU RE, ROUTI NE result 1 Commen t Mixed uroge nital veto 50,00 0-100 ,000 colon y formi ng units per mL Not Available [facility] ([facility]) [address] [facility], [place], [address], 04/07/2022 11:35:57 04/02/20 22 04/02/2022 urina lysis , dipst ick Unknown Analyte Negati ve Not Available [id number] in [facility] [address] [facility] [address] [place] [address], [address], 04/02/2022 10:19:52 04/02/20 22 04/02/2022 urina lysis , dipst ick Unknown Analyte Negati ve Not Available [id number] in [facility] [address], [place], [address], 04/02/2022 10:19:52 04/02/20 22 04/02/2022 urina lysis , dipst ick Unknown Analyte 1.020 Not Available Cc014_ wcc_kin [facility] [address], [place], [address], 04/02/2022 10:19:52 04/02/20 22 04/02/2022 urina lysis , dipst ick Unknown Analyte Large Not Available Cc014_ [facility]cc_[facility] [address] [facility] [address], [place], [address], 04/02/2022 10:19:52 04/02/20 22 04/02/2022 urina lysis , dipst ick Unknown Analyte 8.0 Not Available Cc014_ wcc_kin [facility] [address] [address], [place], [address], 04/02/2022 10:19:52 04/02/20 22 04/02/2022 urina lysis , dipst ick Unknown Analyte Negati ve Not Available [id number] in [facility] [address] [facility] [address], [place], [address], 04/02/2022 10:19:52 04/02/20 22 04/02/2022 urina lysis , dipst ick Unknown Analyte 0.2 Not Available Cc014_ [facility]cc_[facility] [address] [facility] [address], [place], [address], 04/02/2022 10:19:52 04/02/20 22 04/02/2022 urina lysis , dipst ick Unknown Analyte negati ve Not Available [id number] in [facility] [address] [facility] [address], [place], [address], 04/02/2022 10:19:52 04/02/20 22 04/02/2022 urina lysis , dipst ick Unknown Analyte Large Not Available C[facility]_ [facility] [address] [facility] [address], [place], [address], 04/02/2022 10:19:52 04/02/20 22 10/02/2018 MAMMO , scree jackie, tomos ynthe sis, bilat eral No observ ation record ed. Not Available 03/10 07:51:06 04/02/20 22 04/02/2022 US, pelvi s, limit ed No observ ation record ed. [place] [address], [place], [address], 04/02/2022 11:32:37 04/02/20 22 04/02/2022 US, pelvi s, limit ed No observ ation record ed. [email or web address] [facility] [address], [place], [address], 04/02/2022 11:51:07 03/06/20 23 03/06/2023 MAMMO , scree jackie, tomos ynthe sis, bilat eral No observ ation record ed. [email or web address] [id number] Cc017_ [facility]_ [address], [address], 04/07/2023 10:07:58 03/06/20 24 03/06/2024 MAMMO , scree jackie, tomos ynthe sis, bilat eral No observ ation record ed. [email or web address] [email or web address]_ [facility]_ [address], [place], [address], 03/09/2024 11:10:14 03/08/20 25 03/08/2025 MAMMO , scree jackie, tomos ynthe sis, bilat eral No observ ation record ed. [email or web address] [email or web address]_ [facility]_ma[facility]_ [facility] [address] [facility] [address], [place], [address], 03/22/2025 08:07:16 Result Notes None recorded. Problems Name Problem SNOMED Code Status Onset Date Resolution Date Notes Provider Name and Address Organization Details Recorded Time Urogenital finding 616032106 Completed Not Available [facility] 03:32:27 Female genital organ symptoms 782440310 Completed Not Available [facility] 03:32:27 Female urinary stress incontinen ce 72958094 Active Not Available [facility] 03:32:27 Postmenopa usal bleeding 93975159 Active Not Available [facility] 03:32:27 Urge incontinen ce of urine 91220914 Completed Not Available [facility] 03:32:28 Problem Notes None recorded. Procedures Surgical History Date Name Laterality Status Provider Name and Address Organization Details Recorded Time 03/06/20 24 Date of Last Mammogram completed Smita Hartman [facility] 09/22/2024 10:21:05 06/09/19 18 Date of Last Colonoscopy completed [facility] 04/02/2022 07:44:54 09/10/19 13 Date of Last Pap Smear completed [facility] 04/02/2022 07:44:23 Breast Biopsy completed [facility] 04/02/2022 07:46:26 Cholecystectomy completed [facility] 04/02/2022 07:46:32 Imaging Results None recorded. Procedure Notes None recorded. Medical Equipment None Reported. Allergies Allergen ID Allergen Name Allergen Category Reaction Reaction Severity Criticality Documentation Date Start Date Code Code System Note Provider Name and Address Organization Details Recorded Time 04491 prednison e medicatio n nausea vomiting Not available Not available Not available 09/29/2020 8640 RxNorm Not Available [facility] 03:48:51 Medications Name Sig Start Date Stop Date Status Note LastModified by Organization Details LastModified Time losartan 50 mg tablet 09/13 completed Not Available Not Available Not Available amoxicilli n 500 mg capsule take 1 capsule by mouth three times a day 09/22 completed Not Available Not Available Not Available medroxypro [...] completed Not Available Not Available Not Available ketoconazo le 2 % shampoo WASH THE AFFECTED AREA DAILY FOR 3 WEEKS, THEN 2 TO 3 TIMES A WEE... (REFER TO PRESCRIP TION NOTES). 04/02 completed Not Available Not Available Not Available [...] times a day if needed for cough 04/02 completed Not Available Not Available Not Available hydrocodon e 5 mg-acetami nophen 325 mg tablet prn 09/19 completed Not Available Not Available Not Available prednisone 20 mg tablet active Not Available Not Available Not Available propranolo l ER 60 mg capsule,24 hr,extende d release take 1 capsule by mouth once daily 09/22 completed Not Available Not Available Not Available simvastati n 10 mg tablet take 1 tablet by mouth every evening 04/02 completed Not Available Not Available Not Available promethazi ne 6.25 mg-codeine 10 mg/5 mL syrup take 5 millilit ers by mouth twice a day if needed for cough for 10 days active Not Available Not Available No t Available acetaminop hen 300 mg-codeine 30 mg tablet 09/13 completed Not Available Not Available Not Available clopidogre l 75 mg tablet TAKE 1 tablet Orally Once a day 90 days active Not Available Not Available No t Available chlorthali done 25 mg tablet take 1 tablet by mouth once daily active Not Available Not Available No t Available allopurino l 100 mg tablet active Not Available Not Available Not Available ciprofloxa isabelle 500 mg tablet take 1 tablet by mouth every 12 hours for 5 days 09/22 completed Not Available Not Available Not Available sulfametho xazole 800 mg-trimeth oprim 160 mg tablet 09/18 completed Not Available Not Available Not Available spironolac tone 25 mg tablet TAKE 1 TABLET BY MOUTH ONE DAILY active Not Available Not Available No [...] Available Not Available Not Available doxycyclin e monohydrat e 50 mg capsule take 1 capsule by mouth once daily with food 09/22 completed Not Available Not Available Not Available benzonatat e 100 mg capsule take 1 or 2 capsules by mouth three times a day if needed for cough 04/02 completed Not Available Not Available Not Available cephalexin 500 mg capsule take 1 capsule by mouth three times a day for 5 days 09/22 completed Not Available Not Available Not Available pantoprazo le 40 mg tablet,del ayed release take 1 tablet by mouth once daily 09/19 completed Not Available Not Available Not Available erythromyc in 5 mg/gram (0.5 %) eye ointment APPLY TO LEFT EYE EVERY NIGHT AT BEDTIME FOR 5 TO 7 DAYS 09/22 completed Not Available Not Available Not Available cyanocobal hendrickson (vit B-12) 1,000 mcg/mL injection solution Inject 1 mL every month by subcutan eous route. 04/02 completed Not Available Not Available Not Available hyoscyamin e 0.125 mg sublingual tablet prn 2011 active Not Available Not Available Not Avai lable propranolo l ER 80 mg capsule,24 hr,extende [...] CAPSULE BY MOUTH IN THE MORNING 1 IN THE AFTERNOO N AND 2 AT NIGHT active Not Available Not Available No t [...] active Not Available Not Available Not Available bisacodyl 5 mg tablet,del ayed release take 2 tablets by mouth once daily for 2 days 09/22 completed Not Available Not Available Not Available furosemide 20 mg tablet active Not Available Not Available Not Available gabapentin 100 mg capsule take 1 capsule by mouth at bedtime 09/22 completed Not Available Not Available Not Available polyethyle ne glycol 3350 17 gram/dose oral powder TAKE DIRECTED FOR BOWEL PREP 09/22 completed Not Available Not Available Not Available levofloxac in 500 mg tablet active Not Available Not Available Not Available albuterol sulfate HFA 90 mcg/actuat ion aerosol inhaler inhale 1 puff by mouth and INTO THE LUNGS every 4 hours if needed active Not Available Not Available No t Available colchicine 0.6 mg tablet take 2 tablets by mouth then 1 tablet 1 hour LATER as directed by prescrib er 09/19 completed Not Available Not Available Not Available ketoconazo le 2 % topical cream apply 1 APPLICAT ION to affected area twice a day for 2 to 4 WEEKS 09/22 completed Not Available Not Available Not Available ondansetro n 4 mg disintegra ting tablet dissolve 1 tablet ON TONGUE every 8 hours if needed for nausea OR vomiting 09/19 completed Not Available Not Available Not Available losartan 100 mg tablet take 1 tablet by mouth once daily at bedtime active Not Available Not Available No t Available fluticason e propionate 50 mcg/actuat ion nasal spray,susp ension prn active Not Available Not Available Not Available clotrimazo le 1 % topical cream apply to affected area topicall y twice a day IN THE MORNING AND EVENING active Not Available Not Available No t Available Diovan 160 mg tablet active Not Available Not Available No t Available doxycyclin e hyclate 100 mg tablet take 1 tablet by mouth twice a day active Not Available Not Available No t Available amoxicilli n 875 mg-potassi um clavulanat e 125 mg tablet take 1 tablet by mouth every 12 hours for 10 days 04/02 completed Not Available Not Available Not Available metaxalone 800 mg tablet active Not Available Not Available Not Available ezetimibe 10 mg tablet take 1 tablet by mouth at bedtime active Not Available Not Available No t Available Vitamin D3 25 mcg (1,000 unit) tablet 2 po qd 09/19 completed Not Available Not Available Not Available Restasis 0.05 % eye drops in a dropperett e instill 1 drop into both eyes twice a day 09/22 completed Not Available Not Available Not Available rosuvastat in 10 mg tablet take 1 tablet by mouth ON FRIDAY, AND FRIDAY active Not Available Not Available No t Available Clobex 0.05 % shampoo active Not Available Not Available Not Available Tylenol Extra Strength 09/19 completed PRN Not Available Not Available Not Available chlorthali done 09/22 completed 1mg daily Not Available Not Available Not Available Vitamin D3 2020 active 50,000 units orally daily Not Available Not Available Not Available Daria Aspirin 04/02 completed 81 mg daily Not Available Not Available Not Available Zetia active Not Available Not Availa ble Not Available Systane (propylene glycol) 09/19 completed Not Available Not Available Not Available Zostavax (PF) 19,400 unit/0.65 mL subcutaneo us suspension active Not Available Not Available N ot Available MoviPrep 100 gram-7.5 gram-2.691 gram oral powder packet active Not Available Not Available Not Available calcium 600 mg (as carbonate) -vitamin D3 10 mcg (400 unit) tablet take 1 tablet by mouth once daily with meals active Not Available Not Available No t Available Durezol 0.05 % eye drops active Not Available Not Available Not Available febuxostat 40 mg tablet take 1 tablet by mouth 3 TIMES WEEKLY active Not Available Not Available No t [...] Breo Ellipta 200 mcg-25 mcg/dose powder for inhalation inhale 1 puff by mouth and INTO THE LUNGS once daily AT THE SAME TIME EACH DAY active Not Available Not Available No t Available doxycyclin e 50 mg capsule and topical skin cleanser no.19 active Not Available Not Available Not Available Fluzone High-Dose 5579-8147 (PF) 180 mcg/0.5 mL intramuscu lar syringe inject 0.5 millilit er intramus cularly 10/02 completed Not Available Not Available Not Available Shingrix (PF) 50 mcg/0.5 mL intramuscu lar suspension , kit 10/02 completed Not Available Not Available Not Available Fluad 2017- 65yr up(PF)45 mcg(15 mcgx3)/0.5 mL intramuscu lar syringe inject 0.5 millilit er intramus cularly 10/02 completed Not Available Not Available Not Available Paxlovid 75 mg 09/22 completed Not Available Not Available Not Available Vitals Date Recorded Body height Body mass index (BMI) Body weight Systolic And Diastolic Provider Name and Address Organization Details Last Updated DateTime 09/19/2022 160.02 cm 36.7 kg/m2 21192.62 g 130/80 mm[Hg] Billy Crain (TERMED) [facility] 09/19/2022 09:46:48 Date Recorded Body height Body mass index (BMI) Body weight Systolic And Diastolic Provider Name and Address Organization Details Last Updated DateTime 09/23/2023 160.02 cm 33.5 kg/m2 03370.96 g 94/43 mm[Hg] Smita Hartman [facility] 09/23/2023 14:10:52 Date Recorded Body height Body mass index (BMI) Body weight Systolic And Diastolic Provider Name and Address Organization Details Last Updated DateTime 09/22/2024 160.02 cm 31.9 kg/m2 12017.63 g 99/61 mm[Hg] Smita Hartman [facility] 09/22/2024 10:27:58 Date Recorded Body height Body mass index (BMI) Body weight Systolic And Diastolic Provider Name and Address Organization Details Last Updated DateTime 04/02/2022 160.02 cm 40.7 kg/m2 222712.25 g 114/70 mm[Hg] [facility] ([facility]) [facility] 04/02/2022 10:26:06 Social History Question Answer Notes LastModified by Organizat ion Details LastModified Time Tobacco Smoking Status Never Smoker Smita Hartman [facility] 09/22/2024 10:26:57 Do You Have An Advance Directive? No [email or web address] Information not available 04/02/2022 Is Blood Transfusion Acceptable In An Emergency? Yes [email or web address] Information not available 09/22/2024 What Is Your Level Of Caffeine Consumption? Moderate [email or web address] Information not available 04/02/2022 What Type Of Diet Are You Following? REGULAR [email or web address] Information not available 04/02/2022 What Is The Highest Grade Or Level Of School You Have Completed Or The Highest Degree You Have Received? UM40932-3 [email or web address] Information not available 04/02/2022 How Many Times Per Week Do You Exercise? 1-2 Times Per Week [email or web address] Information not available 09/22/2024 History Of Domestic Violence No [email or web address] Information not available 04/02/2022 Are You Passively Exposed To Smoke? No [email or web address] Information not available 09/19/2022 What Was The Date Of Your Most Recent Tobacco Screening? 09/22/2024 [email or web address] Information not available 09/22/2024 What Is Your Relationship Status? [email or web address] Information not available 04/02/2022 Are You Sexually Active? No [email or web address] Information not available 04/02/2022 Are You Currently In School? No Information not available 04/02/2022 Sex: Female Functional Status Question Answer Note LastModified by Organizat ion Details LastModified Time How many times per week do you consume alcohol? Less than 1 time per week [email or web address] Information not available 09/22/2024 Do you use any illicit or recreational drugs? No [email or web address] Information not available 04/02/2022 Do you or have you ever used any other forms of tobacco or nicotine? No [email or web address] Information not available 04/02/2022 What is your level of alcohol consumption? Occasional [email or web address] Information not available 04/02/2022 Are you currently employed? No [email or web address] Information not available 04/02/2022 What is your exercise level? Moderate [email or web address] Information not available 09/22/2024 Mental Status None recorded. Family History Nothing Reported Notes:adopted unknown family history Medical History Condition Response Neurology- Stroke/TIA Y Rheumatology- Fibromyalgia/Chronic Pain N Dermatology-Acne N Endocrinology- Osteopenia/Osteoporosis N Endocrinology- Vitamin Deficiency Y Endocrinology-Other N Urology-Other N Rheumatology- Autoimmune Disease N Nephrology-Renal Disease Y Neurology- Seizures/Epilepsy N Ortho-Fractures N Endocrinology- Prolactinoma N Urology- Recurrent Urinary Tract Infecti ons Y Pulmonary- Seasonal Allergies/Allergic R hinitis N Psych- PMS/PMDD N Pulmonary-Other N Endocrinology- Glucose Intolerance/Insul in Resistance N Psych- Anxiety Disorder N Hematology- Anemia N GI- Reflux/Ulcers N Cancer- Skin N Cancer- Genetic screening N Cardiology- Heart Disease N GI- Irritable Bowel Syndrome N GI- Colon Polyps Y Ortho-Other N Psych-Other N ID- MRSA N ID-Other N Psych- Eating Disorder N Ortho- Arthritis Y Urology- Urinary Incontinence Y Pulmonary- Asthma Y Urology- Hematuria (Blood in Urine) N Pulmonary- Sleep Apnea N Neurology- Dementia N Vascular-Aneurysm N Urology- Interstitial Cystitis N Endocrinology- Hypothyroidism N Eyes-other N Neurology- Multiple Sclerosis N Rheumatology- Arthritis N GI- Hemorrhoids Y Neurology-Other N Hematology- Blood Clotting Disorder/Fact or V Leiden N Cardiology-Other N Hematology- Bleeding Disorder N Psych- Depression N Hematology-Other N Dermatology-Eczema/Psoriasis N Dermatology-Other N ID- Tuberculosis/Positive PPD N Ortho-Chronic Back Pain Y ID- HIV N Cancer- Ovary N Cardiology- High Cholesterol Y ID- Chicken Pox/Shingles N Cardiology- Heart Arrhythmia N Psych- Mental Disorder N Rheumatology- Restless Leg Syndrome N Endocrinology- Hyperthyroidism N Endocrinology- Thyroid Problems N Cancer- Breast N Psych- ADD N ID- Herpes N GI- Liver Disease/Hepatitis Y Cancer- Colon N ENT- Hearing Loss Y Cancer- Vulvar N Hematology- Blood Transfusion N Cancer- Vaginal N GI-Other N Neurology- Headaches/Migraines Y Endocrinology- Diabetes N Cancer- Cervical N No diseases or conditions N Pulmonary- COPD/Emphysema N Endocrinology- History of Gestational Di abetes N GI- Crohn's/Ulcerative Colitis N Psych- Bipolar Disease N ENT- Seasonal Allergies/Allergic Rhiniti s N Cardiology- High Blood Pressure Y Cancer- Lung N Cancer- Endometrial/Uterine N Eyes- Glaucoma N ENT-Other N Eyes- Vision Loss/Macular Degeneration N Rheumatology-Other N Hematology- DVT/Pulmonary Embolism N Urology- Stones N Cancer-Other N GI- Gallbladder Disease N Gynecological History Statement/Question Response Date of Last Mammogram 03/06/2024 Age at Menarche: 10 History of Fibroids N Date of Last Colonoscopy 06/09/2017 History of Abnormal PAP N HIV Positive N History of Sexually Transmitted Infectio n N History of Dysmenorrhea N History of Infertility N Age at first intercourse 18 Date of Last bone density 2006 History of PCOS N History of Recurrent Ovarian Cysts N History of Vulvar Dysplasia N Age at Menopause: 45 History of Endometriosis N HPV Vaccine Not Completed Current Control Method: Menopause Sexually Active? N History of Cervical Dysplasia N Sexual Orientation Heterosexual Date of Last Pap Smear 09/09/2012 Total lifetime partners Less than 5 Obstetrics History GPAL:G 2 P 2 0 0 2 Type Value Full Term 2 Living 2 Total 2 Immunizations Vaccine Type Date Status Note Provider Nam e and Address Organization Details Recorded Time SARS-COV-2 (COVID-19) vaccine, UNSPECIFIED 1 completed Not Available [facility] 09/29/2020 03:44:01 SARS-COV-2 (COVID-19) vaccine, UNSPECIFIED 1 completed Not Available [facility] 09/29/2020 03:44:01 Influenza, split virus, quadrivalent, preservative 8 completed Not Available [facility] 09/29/2020 03:44:01 Influenza, split virus, quadrivalent, preservative 6 completed Not Available [facility] 09/29/2020 03:44:02 Influenza, recombinant, trivalent, PF 4 completed Not Available [facility] 09/29/2020 03:44:02 zoster live 3 completed Not Available [facility] 09/29/2020 03:44:02 Past Encounters Encounter ID Performer Location Encounter Start Date Encounter Closed Date Diagnosis/Indication Diagnosis SNOMED-CT Code Diagnosis ICD10 Code Diagnosis IMO Codes Diagnosis Note [id number] AMRIK WANG [id number] [address] [place] [address] 04/02/2022 10:07:44 04/02/2022 11:45:16 Abnormal vaginal bleeding 771759452 N93.9 Postmenopa usal bleeding 79058017 N95.0 Pt states she had some sweats throughout her chest and had some bleeding when urinating for 2 days. None since then. Some sweats today and no visible bleeding. TVS done which is difficult due to body habitus. Thin lining 5 mm without blood flow. DW her previous results from 2018 and 2014 is the same. Endometria l biopsy in 2014 atrophic lining. DW her peripheral conversion to estrone. Pt to use some provera for 10 days and to let me know if she has any further shedding. Questions answered. LIMITED TAS DUE TO PMB. PT REPORTS RECENT PASSING OF CLOTS AND INTERMITTE NT BLEEDING. TAS: THE UT IS EUVERTED AND DEEP WITHIN THE PT PELVIS PROVIDING LIMITED ASSESSMENT . APPEARS NORMAL IN SIZE AND ECHOTEXTUR E. ENDO APPEARS ECHOGENIC AND AVASCULAR, MILDLY THICKENED, 5.5 MM. THE OVARIES ARE NOT IDENTIFIED . NO ABNORMAL MASSES OR COLLECTION S ARE SEEN IN THE CLDS/ADNEX A. Blood in urine 82520377 R31.9 [id number] AMRIK WANG MD [id number] [facility] [address] [place] [address] 09/19/2022 09:31:35 09/19/2022 11:39:22 Gynecologic examination 40692887 Z01.419 Pt presents for well woman exam. Doing well. Still wears a pad for her bladder. Bowels regular. Nl atrophic exam. No pap sent today and pt told that she no longer needs pap smears. She understand s that she should continue to present for well woman exams every two years and continue to have yearly mammograph y. Results to portal. Questions answered. Screening for malignant neoplasm of breast [id number] Z12.39 Pt with normal breast exam and given order for mammogram. Results to portal. Screening for malignant neoplasm of cervix [id number] Z12.4 Pt without history of abnormal pap and no further paps needed due to age and low risk status. [id number] AMRIK WANG MD [id number] _[address] [facility] [address] [address] 09/23/2023 13:50:41 09/23/2023 14:48:48 Tinea corporis [id number] B35.4 Has noticed a red rash on right breast since a couple of day. Very red with sharp borders. Not pruritic. DW her cw ring worm. Explained it was tinea corporis and not a worm infection. Will treat. [id number] AMRIK WANG MD [id number] _[address] [facility] [address] [address] 09/22/2024 10:14:20 09/22/2024 11:04:43 Gynecologic examination [id number] Z01.419 Pt presents for well woman exam. Doing well. Recently had cardiac cath due to abnl findings on EKG. Had 40% blockage of LAD and simply watching for now. Bowels regular. No bladder issues unless she waits too long. Nl atrophic exam. No pap sent today and pt told that she no longer needs pap smears. She understand s that she should continue to have yearly mammograph y. Pt desires to still come every 2 years even though I DW her not necessary at this point. Questions answered. Screening for malignant neoplasm of cervix [id number] Z12.4 Z11.51 Pt without history of abnormal pap and no further paps needed due to age and low risk status. Screening for malignant neoplasm of breast [id number] Z12.39 Pt with normal breast exam and given order for mammogram. Results to portal. Mental hea lth screening [id number] Z13.39 1 Depression screening 171 [id number] Z13.31 0 Health Concerns Section Related Observation LastModified by Organization Detai ls LastModified Time None Recorded Concern Status LastModified by Organization Details LastModified Time None Recorded Advance Directives Directive N: Payers Insurance Date Sequence Insurance Name Policy Number Policy Vu Covered Member ID Vu Member ID Guarantor Name 10/25/2024 1 [place] Susie Francis [id number] Susie Francis 10/25/2024 2 [facility]AN CT (MEDICARE SUPPLEMENT ) Susie Francis [id number] Susie Francis Notes Date Note Type Note Provider Name and Address Organization Details Recorded Time 2 text/html Post Menopausal Bleeding ([facility])Reported by PatientPostmenopausal BleedingFor bleeding is, patient reportsflow: moderate. For associated signs & symptoms, patient reportshematuriabut reportsno vaginal itching or burning,no painful interecorse,no pelvic pain, andno rectal bleeding. For location, patient reportsunsure. For postmenopausal bleeding has been present for, patient reports4 days. For context, patient reportsfirst episode of postmenopausal bleeding. AMRIK WANG MD [address], [place], [address], [facility] 04/02/2022 11:51:54 3 text/html Annual Postmenopausal ([facility])Reported by PatientHPIFor patient relationship to practice, patient reportsestablished patient. For current medical history, patient reportsno active medical problemsandno recent surgeries or hospitalizations. For relevant family history, patient reportsno family history of breast cancer,no family history of ovarian cancer,no family history of uterine cancer,no family history of colon cancer, andno family history of blood clots/dvt. For menopausal symptoms, patient reportsnot present. For vaginal bleeding, patient reportsno. For sexually active, patient reportsno: __. For sti screen, patient reportsdeclines. AMRIK WANG MD [address], [place], [address], [facility] 09/19/2022 12:22:02 5 text/html Annual Postmenopausal ([facility])Reported by PatientHPIFor patient relationship to practice, patient reportsestablished patient. For current medical history, patient reportsactive medical problems stableandno recent surgeries or hospitalizations. For relevant family history, patient reportsno family history of breast cancer,no family history of ovarian cancer,no family history of uterine cancer,no family history of colon cancer, andno family history of blood clots/dvt. For menopausal symptoms, patient reportsnot present. For hrt, patient reportsnever on hrt. For vaginal bleeding, patient reportsno. For sexually active, patient reportsno: __. For sti screen, patient reportsdeclines. For health/prevention, patient reportsbreast self exam: yes. For mammogram, patient [id number]. For pap smear +/- hpv cotesting, patient reportsnot applicable. For patient has, patient reportsprimary care physician: yes. AMRIK WANG MD [address], [place], [address], [facility] 09/22/2024 10:55:08 OBGyn Episode No OBEpisode recorded.
--- OUTSIDE RECORDS SUMMARY | 2025-06-02 12:45 | XMS_ITS | Encounter Summary ---
Author Organization [facility] Address [address] [place] [address] Care Team Providers Care Supervisor Buffing And Pasting Name Role Phone Mahin Malloy MD Primary Care Provider [phone] Encounter Details Date Type Department Care Team (Late st Contact Info) Description 03/26/2024 Lab Requisition [facility] [address] [place] [address] Mahin Malloy MD [facility] [address] [place] [address] [address] [place], [place] [address] Social History Tobacco Use Types Packs/Day Years [...] Description 06/22/2025 9:45 AM EST [facility] [address] [place] [address] Timbo Stiles, NELLY [address] [facility] [address] [place] [address] 10/27/2025 9:15 AM EDT Office Visit [facility] [address] [facility] [address] [place] [address] Gurinder Patel MD [address] [facility] [address] [place] [address] documented as of this encounter Procedures Procedure Name Priority Date/Time Associated Diagnosis Comments LAB DRAW FEE - IOP Routine 03/25/2024 12 :16 PM EDT RENAL FUNCTION PANEL Routine 03/25/2024 12:16 PM EDT documented in this encounter Results * Draw Fee - IOP (03/25/2024 12:16 PM EDT) Blood BLOOD / Unknown 03/25/2024 1 2:16 PM EDT 03/26/2024 9:23 AM EDT Mahin Malloy MD LAB CHEMISTRY ORDERABLES Final Result [facility] [address] [place] [address], * (ABNORMAL) Renal Function Panel (03/25/2024 12:16 PM EDT) Sodium 142 133 - 145 mmol/L [facility] _[facility] 03/26/2024 1:[address] [facility] Potassium 4.4 3.5 - 5.5 mmol/L [facility] _[facility] 03/26/2024 1:[address] [facility] Chloride 105 98 - 110 mmol/L [facility] _[facility] 03/26/2024 1:[address] [facility] Glucose 83 70 - 99 mg/dL [facility] _[facility] 03/26/2024 1:[address] [facility] BUN 26(H) 6 - 22 mg/dL [facility] _[facility] 03/26/2024 1:40 PM EDT [facility] CO2 25 20 - 32 mmol/L [facility] _[facility] 03/26/2024 1:40 PM EDT [facility] Creatinine 0.9 0.8 - 1.4 mg/dL [facility] _[facility] 03/26/2024 1:40 PM EDT [facility] Calcium 9.6 8.4 - 10.5 mg/dL [facility] _[facility] 03/26/2024 1:40 PM EDT [facility] Albumin 3.9 3.5 - 5.0 g/dL [facility] _[facility] 03/26/2024 1:40 PM EDT [facility] Phosphorus 3.5 2.5 - 4.5 mg/dL [facility] _[facility] 03/26/2024 1:[address] [facility] eGFR >60.0 >60.0 mL/min/1.7 3 sq.m. [facility] 03/26/2024 1:[address] [facility] Comment: eGFR calculation based on the Chronic Kidney Disease Epidemiology Collaboration (CKD-EPI) equation refit without adjustment for race. This eGFR is validated for stable chronic renal failure patients. This equation is unreliable in acute illness or patients with normal renal function. Anion Gap 12.0 3.0 - 15.0 mmol/L [facility] 03/26/2024 1:40 PM EDT [facility] Comment:Anion Gap calculatio n based on electrolyte reference ranges. CORRECTED SERUM CREATININE 0.95 mg/dL [facility] _[facility] 03/26/2024 1:40 PM EDT [facility] Blood BLOOD / Unknown 03/25/2024 1 2:16 PM EDT 03/26/2024 9:23 AM EDT us Mahin Malloy MD LAB CHEMISTRY ORDERABLES Final Result [facility] [address] [address], [place] [phone] documented in this encounter Visit Diagnoses Not on filedocumented in this encounter Care Teams Supervisor Buffing And Pasting Relationship Specialty Start Date End Date Mahin Malloy MD [facility] [address] [place] [address] PCP - General 11/18/11 documented as of this encounter
--- OUTSIDE RECORDS SUMMARY | 2025-06-02 12:45 | XMS_ITS | CCD ---
Author Name Interface, [id number] lity Address [address] [place] [address] Organization [facility] Address [address] [place] [address] Care Team Providers Care Heel Shaper Name Role Phone Curtis MEANS, Brigitte Unavailable Unavail able Allergies and Adverse Reactions Medication/Group Name Reaction Severity Date doxycycline 02/25/2025 prednisone Nausea 02/25/2025 Care Plan Date Type Value 02/24/2026 APPOINTMENT OV 15 MIN 02/17/2026 APPOINTMENT LAB 15 MIN 10/07/2025 APPOINTMENT TREATMENT 30 MIN 08/12/2025 APPOINTMENT LAB 15 MIN 08/12/2025 APPOINTMENT TREATMENT 30 MIN 06/17/2025 APPOINTMENT TREATMENT 30 MIN 04/15/2025 APPOINTMENT TREATMENT 30 MIN 02/25/2025 APPOINTMENT OV 15 MIN 02/25/2025 APPOINTMENT TREATMENT 30 MIN 02/25/2025 APPOINTMENT OV 15 MIN 02/18/2025 APPOINTMENT TREATMENT 30 MIN 02/18/2025 APPOINTMENT LAB 15 MIN 12/24/2024 APPOINTMENT LAB 15 MIN 12/24/2024 APPOINTMENT TREATMENT 30 MIN 12/01/2024 APPOINTMENT LAB 15 MIN 12/01/2024 APPOINTMENT OV 15 MIN 10/25/2024 APPOINTMENT TREATMENT 30 MIN 08/30/2024 APPOINTMENT TREATMENT 30 MIN 08/26/2024 APPOINTMENT TREATMENT 30 MIN 08/23/2024 APPOINTMENT TREATMENT 30 MIN 08/20/2024 APPOINTMENT TREATMENT 30 MIN 06/28/2024 APPOINTMENT LAB 15 MIN 06/28/2024 APPOINTMENT TREATMENT 30 MIN 06/28/2024 LAB_ORDER Iron profile 06/28/2024 LAB_ORDER CBC w/ auto diff 06/28/2024 LAB_ORDER CMP 06/28/2024 LAB_ORDER Ferritin 06/28/2024 LAB_ORDER Free kappa / rees bda with K/L ratio, serum 06/28/2024 LAB_ORDER ELVIA and SPEP mccabe el with Quantitative Immunoglobulins 10/25/2024 LAB_ORDER CBC w/ auto diff 10/25/2024 LAB_ORDER CMP 10/25/2024 LAB_ORDER Ferritin 10/25/2024 LAB_ORDER Iron profile 10/25/2024 LAB_ORDER Free kappa / rees bda with K/L ratio, serum 10/25/2024 LAB_ORDER ELVIA and SPEP mccabe el with Quantitative Immunoglobulins 12/01/2024 LAB_ORDER CBC w/ auto diff 12/01/2024 LAB_ORDER Iron, TIBC, Ferr itin panel 12/01/2024 LAB_ORDER Vitamin B12 and Folate panel 12/01/2024 LAB_ORDER ELVIA and SPEP mccabe el (with QIGS) 12/01/2024 LAB_ORDER [place]/Lambda lig ht chains, free w/ ratio, serum 12/01/2024 LAB_ORDER CMP 12/24/2024 LAB_ORDER CBC w/ auto diff 02/18/2025 LAB_ORDER Ferritin 02/18/2025 LAB_ORDER Iron profile 02/18/2025 LAB_ORDER Free kappa / rees bda with K/L ratio, serum 02/18/2025 LAB_ORDER CBC w/ auto diff 02/18/2025 LAB_ORDER CMP 02/18/2025 LAB_ORDER ELVIA and SPEP mccabe el with Quantitative Immunoglobulins 02/18/2025 LAB_ORDER Vitamin B12 02/18/2025 LAB_ORDER Iron, TIBC, Ferr itin panel 02/18/2025 LAB_ORDER CBC w/ auto diff 04/15/2025 LAB_ORDER CBC w/ auto diff 04/15/2025 LAB_ORDER CMP 04/15/2025 LAB_ORDER ELVIA and SPEP mccabe el (with QIGS) 04/15/2025 LAB_ORDER [place]/Lambda lig ht chains, free w/ ratio, serum 06/10/2025 LAB_ORDER CBC w/ auto diff 08/05/2025 LAB_ORDER CBC w/ auto diff 08/05/2025 LAB_ORDER Iron, TIBC, Ferr itin panel 08/05/2025 LAB_ORDER ELVIA and SPEP mccabe el (with QIGS) 08/05/2025 LAB_ORDER [place]/Lambda lig ht chains, free w/ ratio, serum 08/05/2025 LAB_ORDER CBC w/ auto diff 09/30/2025 LAB_ORDER Vitamin B12 and Folate panel 09/30/2025 LAB_ORDER CBC w/ auto diff 09/30/2025 LAB_ORDER CMP 09/30/2025 LAB_ORDER ELVIA and SPEP mccabe el (with QIGS) 09/30/2025 LAB_ORDER [place]/Lambda lig ht chains, free w/ ratio, serum 02/17/2026 LAB_ORDER Vitamin B12 and Folate panel 02/17/2026 LAB_ORDER CBC w/ auto diff 02/17/2026 LAB_ORDER Iron, TIBC, Ferr itin panel 02/17/2026 LAB_ORDER ELVIA and SPEP mccabe el (with QIGS) 02/17/2026 LAB_ORDER [place]/Lambda lig ht chains, free w/ ratio, serum 02/17/2026 LAB_ORDER CMP Reason for Visit TREATMENT 30 MIN Mental Status Date Value 08/29/2022 Normal concentration 05/10/2021 Normal concentration 12/04/2023 Memory function norm al 12/07/2019 Memory function norm al 01/04/2020 Memory function norm al 02/01/2020 Memory function norm al 03/08/2020 Memory function norm al 08/03/2020 Memory function norm al 07/05/2020 Memory function norm al 09/28/2020 Memory function norm al 08/31/2020 Memory function norm al 05/10/2021 Memory function norm al 07/26/2021 Memory function norm al 02/13/2022 Memory function norm al 04/10/2023 Memory function norm al 09/26/2022 Memory function norm al 08/29/2022 Memory function norm al 11/21/2022 Memory function norm al 12/19/2022 Memory function norm al 04/10/2022 Memory function norm al 05/09/2022 Memory function norm al 12/07/2019 Mentally alert 01/04/2020 Mentally alert 02/01/2020 Mentally alert 04/06/2020 Mentally alert 03/08/2020 Mentally alert 07/05/2020 Mentally alert 08/03/2020 Mentally alert 09/28/2020 Mentally alert 08/31/2020 Mentally alert 05/10/2021 Mentally alert 07/26/2021 Mentally alert 02/13/2022 Mentally alert 05/09/2022 Mentally alert 04/10/2022 Mentally alert 12/19/2022 Mentally alert 09/26/2022 Mentally alert 11/21/2022 Mentally alert 08/29/2022 Mentally alert 04/10/2023 Mentally alert 12/04/2023 Mentally alert 12/07/2019 Oriented to person t eduardo and place 01/04/2020 Oriented to person t eduardo and place 02/01/2020 Oriented to person t eduardo and place 04/06/2020 Oriented to person t eduardo and place 03/08/2020 Oriented to person t eduardo and place 07/05/2020 Oriented to person t eduardo and place 08/03/2020 Oriented to person t edurado and place 09/28/2020 Oriented to person t eduardo and place 08/31/2020 Oriented to person t eduardo and place 05/10/2021 Oriented to person t eduardo and place 07/26/2021 Oriented to person t eduardo and place 02/13/2022 Oriented to person t eduardo and place 05/09/2022 Oriented to person t eduardo and place 04/10/2022 Oriented to person t eduardo and place 12/19/2022 Oriented to person t eduardo and place 09/26/2022 Oriented to person t eduardo and place 11/21/2022 Oriented to person t eduardo and place 08/29/2022 Oriented to person t eduardo and place 04/10/2023 Oriented to person t eduardo and place 12/04/2023 Oriented to person t eduardo and place Encounters Date Name 02/17/2026 Monoclonal gammopath y 02/24/2026 OV 15 MIN 02/17/2026 LAB 15 MIN 10/07/2025 TREATMENT 30 MIN 08/12/2025 LAB 15 MIN 08/12/2025 TREATMENT 30 MIN 06/17/2025 TREATMENT 30 MIN Functional Status Date Name/Question Score/Answer 03/20/2023 ECOG performance status - grade 1 1 07/26/2021 Karn[place]sky performance status 80 08/05/2019 ECOG performance status - grade 0 0 Health Insurance Date Start Date End Coverage Status Coverage Type Relationship to Subscriber Member Identifier Subscriber Identifier Group Identifier Payer Identifier 2018 Active MEDICARE 362 [id number] Active MEDICARE [id number] Inactive Other Diagnostic Results Date Type Test Units Lower Limit Upper Limit Result Flag Comments Status Ordered By Specimen Source Lab Address 02/18 SPEP with immun ofixa tion Alpha -2 globu riky g/dL 0.4 1.0 0.92 FINAL Brigitte ortiza SER [facility], [address], [place] 02/18 SPEP with immun ofixa tion Album in, % % 46.6 62.6 55.90 FINAL Brigitte ortiza SER [facility], [address] [facility], [place] 02/18 SPEP with immun ofixa tion Gamma , % % 11.6 24.4 11.40 Low FINAL Brigitte ortiza SER [facility], [address] [facility], [place] 02/18 SPEP with immun ofixa tion Album in, SPE g/dL 3.1 5.5 3.24 FINAL Brigitte ortiza SER [facility] [place], [address], [place] 02/18 SPEP with immun ofixa tion Gamma globu riky g/dL 0.7 1.5 0.66 Low FINAL Brigitte ortiza SER [facility], [address], [place] 02/18 SPEP with immun ofixa tion Beta globu riky g/dL 0.5 1.1 0.69 FINAL Brigitte ortiza SER [facility] [place], [address], [place] 02/18 SPEP with immun ofixa tion SPEP/ ELVIA addit ional note [Monocl onal IgG kappa band detecte d. Interpr eted and signed by Tania randolph MD on 025] [] FINAL Brigitte ortiza SER [facility] - [facility], [address], [place] 02/18 SPEP with immun ofixa tion Alpha -1, % % 1.7 4.1 5.00 High FINAL Brigitte ortiza SER [facility] - [facility], [address], [place] 02/18 SPEP with immun ofixa tion M-spi ke, SPE 0.16% FINAL Brigitte ortiza SER [facility] - [facility], [address], [place] 02/18 SPEP with immun ofixa tion Alpha -2, % % 5.9 13.5 15.80 High FINAL Brigitte ortiza SER [facility] - [facility], [address], [place] 02/18 SPEP with immun ofixa tion Alpha -1 globu riky g/dL 0.2 0.5 0.29 FINAL Brigitte ortiza SER [facility] - [facility], [address], [place] 02/18 SPEP with immun ofixa tion Beta, % % 10.9 18.9 11.90 FINAL Brigitte ortiza SER [facility] - [facility], [address], [place] 02/18 SPEP with immun ofixa tion SPE inter preta tion [Previo usly identif ied parapro tein detecte d in gamma region. Was 0.16 gm/dL, now 0.16 gm/dL. Interpr eted and signed by Tania randolph MD on 025] [] FINAL Brigitte ortiza SER [facility] [place], [address], [place] 02/18 Iron / FE ug/dL 50.0 170.0 112.00 FINAL Brigitte ortiza SER [facility], [address], [place] 02/18 Unbou nd iron capac ity ug/dl 155.0 355.0 175.00 FINAL Brigitte Colinr chely SER [facility], [address], [place] 02/18 Iron, % satur ation % 15.0 50.0 39.02 FINAL Brigitte Colinr chely SER [facility], [address], [place] 02/18 TIBC ug/dl 250.0 425.0 287.0 FINAL Brigitte Colinr chely SER [facility], [address], [place] 02/18 Lisa tin ng/ml 7.3 352.3 94.3 FINAL Brigitte Colinr chely SER [facility], [address], [place] 12/01 Folat e, serum ng/ml 8.18 26.8 12.15 FINAL Brigitte Colinr chely SER [facility], [address], [place]/18 CMP ALT/S GPT [iU]/L 10.0 49.0 24 FINAL Brigitte Colinr chely SER [facility], [address], [place]/18 CMP Gluco se mg/dl 74.0 106.0 89 FINAL Brigittedenis Younghir chely SER [facility], [address], [place] 02/18 CMP Total prote in g/dl 5.7 8.2 5.8 FINAL Brigittedenis Younghir chely SER [facility], [address], [place] 02/18 CMP AST/S GOT [iU]/L 0.0 34.0 21 FINAL Brigitte Younghir chely SER [facility], [address], [place] 02/18 CMP Bilir ubin, total mg/dl 0.3 1.2 0.7 FINAL Brigitte Hectorhir chely SER [facility], [address], [place] 02/18 CMP Sodiu m mmol/l 136.0 145.0 143 FINAL Brigitte Naghir chely SER [facility], [address], [place] 02/18 CMP Alkal ine phosp hatas e [iU]/L 46.0 160.0 83 FINAL Brigitte Naghir chely SER [facility], [address], [place] 02/18 CMP GFR estim ate 57.61% FINAL Brigitte Hectorhir chely SER [facility], [address], [place] 02/18 CMP Calci um mg/dl 8.7 10.4 9.8 FINAL Brigitte Booabhir chely SER [facility], [address], [place] 02/18 CMP CO2 mmol/l 20.0 31.0 27 FINAL Brigitte Hectorhir chely SER [facility], [address], [place] 02/18 CMP Chlor javier mmol/l 98.0 107.0 107 FINAL Brigitte Hectorhir chely SER [facility], [address], [place] 02/18 CMP BUN mg/dl 9.0 23.0 28 High FINAL Brigitte Booabhir chely SER [facility], [address], [place] 02/18 CMP Creat inine mg/dl 0.55 1.3 0.990 FINAL Brigitte Booabhir chely SER [facility], [address], [place] 02/18 CMP Album in g/dl 3.4 5.0 3.5 FINAL Brigittedenis Colinr chely SER [facility], [address], [place] 02/18 CMP Potas sium mmol/l 3.5 5.1 4.6 FINAL Brigittedenis Colinr chely SER [facility], [address], [place] 02/18 Vitam in B12 pg/mL 316.0 1016.0 340.00 FINAL Brigittedenis Colinr chely SER [facility], [address], [place] 02/18 Immun oglob ulin measu remen t IgA, quant mg/dL 85.0 499.0 105 FINAL Brigitte Colinr chely SER [facility], [address], [place] 02/18 Immun oglob ulin measu remen t IgG, quant mg/dL 610.0 1616.0 646 FINAL Brigittedenis Colinr chely SER [facility], [address], [place] 02/18 Immun oglob ulin measu remen t IgM, quant mg/dL 35.0 242.0 69 FINAL Brigittedenis Colinr chely SER [facility], [address], [place] 02/18 Demond # (ANC) 10*3/u L 2.0 6.9 3.69 FINAL Brigitte Colinr chely [facility], [address] [place] [address] 02/18 MCV fl 80.0 97.0 88 FINAL Brigitte Colinr chely [facility], [address] [facility] [address] 02/18 MO # 10*3/u L 0.0 0.9 0.46 FINAL Brigitte Stokes chely [facility], [address] [place] [facility] 02/18 IG % % 0.70 FINAL Brigitte Stokes cehly [facility], [address] [place] [facility] 02/18 MO % % 0.0 12.0 6.3 FINAL Brigitte Stokes chely [facility], [address] [facility] 02/18 IG # 0.05% FINAL Brigitte Stokes chely [facility], [address] [facility] 02/18 EO # 10*3/u L 0.0 0.7 0.07 FINAL Brigitte Stokes chely [facility], [address] [facility] 02/18 EO % % 0.0 7.0 1.0 FINAL Brigitte Stokes chely [facility], [address] [facility] 02/18 RBC 10*6/u L 4.0 5.5 4.62 FINAL Brigitte Stokes chely [facility], [address] [facility] 02/18 MPV fl 7.5 11.5 9.10 FINAL Brigitte Stokes chely [facility], [address] [facility] 02/18 BA % % 0.0 2.5 0.4 FINAL Brigitte Stokes chely [facility], [address] [place] [address] 02/18 BA # 10*3/u L 0.0 0.2 0.03 FINAL Brigitte Stokes chely [facility], [address] [place] [address] 02/18 HGB g/dL 12.0 15.0 13.3 FINAL Brigitte Stokes chely [facility], [address] [place] [address] 02/18 MCHC g/dL 31.8 35.4 32.8 FINAL Brigitte Stokes chely [facility], [address] [place] [address] 02/18 HCT % 36.0 47.0 40.5 FINAL Brigitte Stokes chely [facility], [address] [place] [address] 02/18 NRBC, % % 0.00 FINAL Brigitte Stokes chely [facility], [address] [place] [address] 02/18 WBC 10*3/u L 4.1 10.9 7.3 FINAL Brigitte ortiza [facility], [address] [place] [address] 02/18 PLT 10*3/u L 140.0 440.0 240 FINAL Brigitte Stokes chely [facility], [address] [place] [address] 02/18 S- NRBC# # 0.00 FINAL Brigitte Stokes chely [facility], [address] [place] [address] 09/12 /2025 RDW % 11.6 14.8 13.6 FINAL Brigitte Stokes chely [facility], [address] [place] [address] 02/18 LY % % 10.0 50.0 41.1 FINAL Brigitte Stokes chely [facility], [address] [place] [address] 02/18 MCH pg 27.0 31.2 28.8 FINAL Brigitte Stokes chely [facility], [address] [facility] [address] [place] [address] 02/18 LY # 10*3/u L 0.6 3.4 3.00 FINAL Brigitte Stokes chely [facility], [address] [place] [address] 02/18 Demond % % 37.0 80.0 50.5 FINAL Brigitte Stokes chely [facility], [address] [facility] [address] [place] [address] 02/18 Free kappa / lambd a with K/L ratio , serum [place] light chain , free mg/L 3.3 19.4 52.01 High FINAL Brigitte Stokes chely [facility], [address] 02/18 Free kappa / lambd a with K/L ratio , serum Free K/L ratio 0.26 1.65 3.07% High FINAL Brigitte Stokes chely SER [facility], [address] 02/18 Free kappa / lambd a with K/L ratio , serum [place] a light chain , free mg/L 5.71 26.3 16.94 FINAL Brigitte ortiza SER [facility], [address] Medications Administered Date Name Route Dose Frequency Instructions Start Date End Date Status 04/15/2025 vitamin B12 1 MG/ML Injectable Solution subcutaneously 1000.0 mcg once 04/15/2025 04/15/2025 inactive 04/15/2025 vitamin B12 1 MG/ML Injectable Solution subcutaneously 1000.0 mcg once 04/15/2025 04/15/2025 inactive 02/18/2025 vitamin B12 1 MG/ML Injectable Solution subcutaneously 1000.0 mcg once 02/18/2025 02/18/2025 inactive 02/18/2025 vitamin B12 1 MG/ML Injectable Solution subcutaneously 1000.0 mcg once 02/18/2025 02/18/2025 inactive 12/24/2024 vitamin B12 1 MG/ML Injectable Solution subcutaneously 1000.0 mcg once 12/24/2024 12/24/2024 inactive 12/24/2024 vitamin B12 1 MG/ML Injectable Solution subcutaneously 1000.0 mcg once 12/24/2024 12/24/2024 inactive 10/25/2024 vitamin B12 1 MG/ML Injectable Solution subcutaneously 1000.0 mcg once 10/25/2024 10/25/2024 inactive 10/25/2024 vitamin B12 1 MG/ML Injectable Solution subcutaneously 1000.0 mcg once 10/25/2024 10/25/2024 inactive 08/30/2024 vitamin B12 1 MG/ML Injectable Solution subcutaneously 1000.0 mcg once 08/30/2024 08/30/2024 inactive 08/30/2024 vitamin B12 1 MG/ML Injectable Solution subcutaneously 1000.0 mcg once 08/30/2024 08/30/2024 inactive 06/28/2024 vitamin B12 1 MG/ML Injectable Solution intramuscularly 1000.0 mcg once 06/28/2024 06/28/2024 inactive Medications Date Name Route Dose Frequency Instructions Start Date End Date Status Fill Status Indication 12/01 Ezetimi be Oral active 12/01 Ketocon azole Topical Cream 2 % active 07/26 Flutica sone-Vi lantero l Inhaler 200 mcg-25 mcg/dos e active 08/31 Miscell aneous Drug Febuxostat 40mg qd inactive 09/26 Rosuvas tatin Calcium Oral active 07/07 Spirono lactone Oral orally 25.0 mg daily stopped 12/01 Losarta n Oral active 06/19 Erythro mycin Ophthal kecia Ointmen t 0.5 % 3.5 ointme nt stopped 06/28 Aspirin Oral po daily active 12/01 Spirono lactone Oral M-W-F active 04/06 Aspirin Oral orally 81.0 mg daily inactive 04/06 Choleca lcifero l [place] orally [address]. 0 unit every week inactive 12/01 Clotrim azole-B etameth asone Topical Cream 1 %-0.05 % active 09/20 Noel 3-DHA-E PA-Fish Oil Oral 1,000 mg (120 mg-180 mg) 2.0 capsul e daily stopped 04/06 Clopido grel Oral orally 75.0 mg daily inactive 03/08 Doxycyc line Hyclate Oral po bid inactive 08/05 Gabapen tin Oral orally 100.0 mg daily in AM inactive 04/06 Febuxos tat Oral orally 40.0 mg active 03/08 Benzona morales Oral po tid PRN inactive 04/06 Simvast atin Oral orally 10.0 mg every day at bedtime stopped 10/08 Miscell aneous Drug 1 Doxycycline Hyclate 100mg Take 1 tablet by mouth bid stopped 07/07 Chlorth alidone Oral orally 1.0 mg daily stopped 02/13 Choleca lcifero l Oral inactive 02/25 Metroni dazole Vaginal Gel 0.75 % active 04/06 Gabapen tin Oral orally 300.0 mg Take 1 pill by mouth in the a.m. and afternoon and 2 pill at night active 04/06 Losarta n Oral orally 5.0 mg daily inactive 04/06 Hydroco done-Ac etamino phen Oral 5 mg-325 mg orally 1.0 every 6 hours prn pain inactive 02/13 Ezetimi be Oral po evenings stopped 01/31 Albuter ol HFA Inhaler 90 mcg/act uation inhalat ion 2.0 qd active 11/15 Amoxici llin-Cl avulana te Oral 875 mg-125 mg inactive 01/31 Allopur inol Oral po daily inactive 07/07 Hyoscya mine Oral orally 1.0 tablet 4 times per day prn dyspepsia active 07/07 Propran olol Oral orally 60.0 mg 2 times per day stopped 09/20 Magnesi um Oxide Oral 2.0 tablet QHS active 04/06 Pantopr azole (Sodium ) Oral Delayed Release orally 40.0 mg daily inactive 04/10 Calcium -Cholec alcifer ol Oral 600 mg-10 mcg (400 unit) active 03/15 Cyclosp orine Ophthal kecia Drops 0.05 % 1 drop in both eyes 2x a day. stopped 06/19 Miscell aneous Drug Doxycycline mono 50 mg cap once daily per [facility] joseph Stephens MD inactive 12/01 vitamin B12 1 MG/ML Injecta ble Solutio n subcuta neously 1000.0 mcg once 2025 active Monoclonal gammopathy 12/01 vitamin B12 1 MG/ML Injecta ble Solutio n subcuta neously 1000.0 mcg once 2025 active Vitamin B12 deficiency 12/01 vitamin B12 1 MG/ML Injecta ble Solutio n subcuta neously 1000.0 mcg once 2025 active Vitamin B12 deficiency 12/01 vitamin B12 1 MG/ML Injecta ble Solutio n subcuta neously 1000.0 mcg once 2025 active Monoclonal gammopathy 12/01 vitamin B12 1 MG/ML Injecta ble Solutio n subcuta neously 1000.0 mcg once 2025 active Monoclonal gammopathy 12/01 vitamin B12 1 MG/ML Injecta ble Solutio n subcuta neously 1000.0 mcg once 2025 active Vitamin B12 deficiency 08/10 vitamin B12 1 MG/ML Injecta ble Solutio n subcuta neously 1000.0 mcg once 2025 active Vitamin B12 deficiency 08/10 vitamin B12 1 MG/ML Injecta ble Solutio n subcuta neously 1000.0 mcg once 2025 active Monoclonal gammopathy Patient Education Date Type Value 12/01/2024 Monoclonal gammo dorcas of undetermined significance Problems Diagnosis Status Date of Diagnosis Resolution Date CKD Active Monoclonal gammopathy Active Vitamin B12 deficiency Active Procedures Date Category Name Instructions Status 06/27/2024 Physician Order RTC nurse for injection Vitamin B12 Ordered 08/25/2024 Physician Order RTC nurse for injection Vitamin B12 Ordered 10/25/2024 Physician Order RTC nurse for injection Vitamin B12 Ordered 12/01/2024 Physician Order RTC MD/MOHAN first couple weeks of october, Ordered 12/24/2024 Physician Order RTC nurse for injection b12 Ordered 12/25/2024 Physician Order RTC nurse for injection Vitamin B12 Ordered 02/18/2025 Physician Order RTC nurse for injection b12 Ordered 02/25/2025 Physician Order RTC nurse for injection Vitamin B12 Ordered 02/25/2025 Physician Order RTC MD/Lab Please sched ule labs 1 week prior to OV Ordered 04/15/2025 Physician Order RTC nurse for injection b12 Ordered 04/15/2025 Physician Order RTC nurse for injection b12 Ordered 06/10/2025 Physician Order RTC nurse for injection b12 Ordered 06/10/2025 Physician Order RTC nurse for injection b12 Ordered 08/05/2025 Physician Order RTC nurse for injection b12 Ordered 08/05/2025 Physician Order RTC nurse for injection b12 Ordered 09/30/2025 Physician Order RTC nurse for injection Ordered 09/30/2025 Physician Order RTC nurse for injection b12 Ordered 02/25/2026 Physician Order RTC MD Ordered Social History Date Name Value 12/01/2024 Smoking Status Never smoker 02/25/2025 Smoking Status Never smoker 01/06/2024 Sex Female Sexual Orientation Straight or h eterosexual 04/15/2025 Gender Identity Identifies as fe male Visits Date Type Value 02/24/2026 OV 15 MIN 02/17/2026 LAB 15 MIN 10/07/2025 TREATMENT 30 MIN 08/12/2025 LAB 15 MIN 08/12/2025 TREATMENT 30 MIN 06/17/2025 TREATMENT 30 MIN Vital Signs Date Type Value 06/28/2024 Pain Scale 0.00 06/28/2024 Intravascular Systolic 113 06/28/2024 Intravascular Diastolic 60 06/28/2024 Oxygen Saturation 97.00 06/28/2024 Respiratory Rate 16.00 06/28/2024 Heart Beat 82.00 06/28/2024 Height 61.00 06/28/2024 Body Temperature 97.30 08/30/2024 Height 61.00 08/30/2024 Intravascular Systolic 118 08/30/2024 Intravascular Diastolic 67 08/30/2024 Oxygen Saturation 99.00 08/30/2024 Respiratory Rate 18.00 08/30/2024 Body Temperature 97.50 08/30/2024 Heart Beat 75.00 10/25/2024 Height 61.00 10/25/2024 Pain Scale 0.00 10/25/2024 Intravascular Systolic 133 10/25/2024 Intravascular Diastolic 62 10/25/2024 Oxygen Saturation 97.00 10/25/2024 Respiratory Rate 16.00 10/25/2024 Heart Beat 73.00 10/25/2024 Body Temperature 97.80 12/01/2024 BMI 33.44 12/01/2024 BSA 1.86 12/01/2024 Height 61.00 12/01/2024 Weight 177.00 12/01/2024 Pain Scale 0.00 12/01/2024 Intravascular Systolic 108 12/01/2024 Intravascular Diastolic 67 12/01/2024 Respiratory Rate 16.00 12/01/2024 Heart Beat 74.00 12/01/2024 Body Temperature 98.50 12/01/2024 Oxygen Saturation 97.00 12/24/2024 Oxygen Saturation 98.00 12/24/2024 Body Temperature 97.10 12/24/2024 Heart Beat 72.00 12/24/2024 Respiratory Rate 16.00 12/24/2024 Intravascular Systolic 127 12/24/2024 Intravascular Diastolic 60 12/24/2024 Pain Scale 0.00 12/24/2024 Height 61.00 02/18/2025 Height 61.00 02/18/2025 Body Temperature 96.40 02/18/2025 Heart Beat 70.00 02/18/2025 Respiratory Rate 16.00 02/18/2025 Oxygen Saturation 100.00 02/18/2025 Pain Scale 0.00 02/18/2025 Intravascular Systolic 107 02/18/2025 Intravascular Diastolic 57 02/25/2025 BSA 1.91 02/25/2025 Intravascular Systolic 114 02/25/2025 Intravascular Diastolic 73 02/25/2025 Body Temperature 98.20 02/25/2025 Heart Beat 65.00 02/25/2025 Oxygen Saturation 96.00 02/25/2025 BMI 35.33 02/25/2025 Height 61.00 02/25/2025 Weight 187.00 02/25/2025 Pain Scale 0.00 02/25/2025 Respiratory Rate 18.00 04/15/2025 Pain Scale 0.00 04/15/2025 Body Temperature 96.60 04/15/2025 Heart Beat 88.00 04/15/2025 Height 61.00 04/15/2025 Intravascular Systolic 124 04/15/2025 Intravascular Diastolic 70 04/15/2025 Oxygen Saturation 98.00 Notes Section * Dr. Bertrand Follow Up <html><head></head><body><div style=text-align:center><span class=clinicalNoteMacroHighlighted id=[id number] macroname =PracticeLetterhead spantype=macro title=#PracticeLetterhead><img src=data:image/jpeg;base64,/9j/4AAQSkZJRgABAAEAkACQAAD//rRsHXEVZJLMMZHqfe7ks4vn ZXMgSW5 zQsHFXQ4dYEB/9iIANZZIDPaDNIhTVptTWTeGAP3KXOaJVB4GKT6JVL7ELO9VRQ9HXX2UXX3LTO5XCX6 XOS0YAF6JOS6ERV8DGH8 QRP8UROtAUehKAGbDJH2XZbzCDK5NCB6RLO5CDL1HSO9WOR0UXA9SLE3NNJ7YKN3XDV9BWZ9KLD8FLT0 LLD9KEJ2CJu/EAaIAAAE FAQEBAQEBAAAAAAAAAAABAgMEBQYHCAkKCwEAAwEBAQEBAQEBAQAAAAAAAAECAwQFBgcICQoLEAACAQM IFsTWZIMXPPJUBS8EPuL VBBNEAxNkJQIASTUKOpCPSkEBlCasAvLTBTRP4MIiSyOGAZjROrgBJgHiIrtsWhS3Pwm5GBxTJTULH0w GSiKKMJXKMNvzZ5OwKoo jwOsueAF6y0o3tgIPgTySgIzNgoGVfGpInSmvluFffsalsEuoxvU9chw1gYb1wmMWdrqJsIsO2tZH7rz T2Wof6fYz3MJs3+jp6vH y8/T19vf4+jqOVIKISaWIDqGIQXWYVMWIrzZNIcRXAXGsEWFZFSJXBSYBUyIFVVNLmsEdiOyaY8IeJUH j6WzNZVOlAtLXDGyyOdo qTLk6Xwu4ALkRYWBJH2rAOtTPEVKVKTzsY0WaDuvhfFixkTD4w9s8ywTKpLUUh7hMnjLQqYNTn6nMsbF peWIgt4vyioFuyJZ8i9j 3rqIDvQZEl1gXrwYO4APE27pV4cGm9QBj2+fb1jEe9HZ70/j5+v/AABEIASQBuQMBEQACEQEDEQH/2gA MAwEAAhEDEQA/APsugAo HRLVpUzJKBKlYbNOWAkFhNMRCiIhGDQDoKfKSMHuR5PMDHVGFOHUFdAIWQOZO/wAULTw/L/ZunRtqept wsEPzBD/50Ir9f3K1i0D 3UsM5+9N8kO7/RQU5G8WNVvdgxz7WL+TcfIPaGfeyNT2AzmXor5lXhy5gt2ditimb0Usu5gSocxk2uxr S49csE8+kBz0kGvUUNk5 Hqrg+f0Uom30jpr1bLj1jXye80oiknZPFhBLEUZVWXGLRCFTZQYBMHZWVBKGRWBEQWCJQNEWTQZATMVQ FABQAUAFABQAUAFABQAU NHQWHIJXSAOUSREYNGNBERMHQXUTALBAGPCOFQS3gZmoB5ir7OU2RbToaaEX7alWsPO3M1MOkjmET5ha Z73IBPc8PO3sMlupsqwH j2al8tt5srWuRLukGrm1Kr9t/Fmo+Q5Om9TO+KRJx5KTaS23x/cBzBK2sJyS0Al0ZI8v4zAyoxF6mDFQ 0Cn0Owk2W0VDNLjtG5ul 0bkfndEZlPjCMAGXu1eFHW4JWoswAb8jdq3Vh6TwC9xNBr8VPWwqHVGknaID6SF6Fsplwv4VyAodyrnk c3nuwsc13AdSmsrRXHz9 Jtqux5xQDE6Id8UtqFxEdtw1az3FXOf5sIFU5Hof6N9LjdaQYdQcygIv4bCcg1ysA1ABWBJu5FChLLAf HljaJabGhoGuswmS09Qq GIUAFABQAUAFABQAUAFABQAUAFABQAUAFABQAUAFABQAUAFABQAUAFABQAUAFABQAUAFABQAUAFABQAU AFABQAUAFABQAUAFABQA UAFABQAUAFAHNeK/P4b4LgIx4hMZzAVNe2xCR4VOHDb6pRk0xXszcHLk022LlYMr7F/je3b3koHw1S/8 DpaeUQTACf36VWEr2SYt gP91f6a0wz294QCqprDo4iTYx+0N27urLX9x1/pkt49bNK3B3cpADmne0p1TQ+6lsgSMDsOhH+NbRw1K LttpwkgxvOR1r2r3F+HP glyQf1EB7bCGTpLNauBGSFTIO0LH7B2oZEKxzKFiz0Pnoa9yJAwfntDzxr7S1scEdx5IY81Mu6IaSR8M UD5a0rzQyTDTnObGFVWe 1S5tnHN+7+Z3i5Zer55xtcsfG4AAzc4ENnR2XEAHGykzyIlqJMVffwdJw32UzvbcN52B9Owzs6yNyZjq 8L31OcwO8enYHXjhNhwi XL2z0byW+BhjUrCjD28C6Ao1crmQf0tgrk9O53OiWTTJFRNHPGLNGHYLZOGASKJCKMTIAIQYRXFBZEIG ABQAUAFABQAUAFABQAUA RCEACEQJICVOOUYVXNLIPXWQSXCTRMZTEFNPCBPGEQLQWSCBVSCNuDXkc1l+DvkTSOidQd4qK6PRzDin fd1oJVPP/dYCTTcmxy8T Ip56oU964zx9wMRUTAYk+P4ian2DDThb/XAQn0grXI/6AHlnb7/qF0u0aVe0hLvfkkUmV2/8AIznW+zD myfu5BvXXga5xuf3pGEX Z2kHYRtHSXO4Rzoyv6md9hpjgdLV52eMtoXVoK9CgmBsjN74cz/ZuEsoVgcfICexs3c+sSRS3gu27nx4 scKqmQAemu3hrdnGI1os qMRka6yW9DHDNtPCxFuT8L7Hd/KQsTj2d7Jxl1U9MhhTzlwbqPNQiDyCjyEF/AJFIv4X8r86iQLTM/jW 6cvObrD7sE6154UmYouq DRR/Mt/C+6l0/9d5NaYOlzYFRsH7/6dD4ndz2XRobEjhlkH47w5luAXFnFP0dg5vT6tbP2dt1kuc7gFi 2NzFNz/sJ9IC7kwuS0jL 9OYMVGY39MhZWI5iO3TE/4PAkfcerWxFVlSVaAUHzNXKzQa8iEndm0RJQize4gB8p1HS3KnGJ070FD1/ qdWaKxezLS8IhNHTeF0w nOfbrWfs5/xEhS4J4RSXfSLG2x+kd8w0GEbyUK6qon5vVi0GdRcE+Gq5Gk+ZNSurLy/gWv9LjfnY81+3 na9550b3qntZtdPs0b92 lTlV/0vnLAmeN05y+hwgEGulKi8naAQ2OdeIxWBV93CG2eKQU+cd7W1yag5hLnjpLnpfhl4ZneJYBVJA BQAUAFABQAUAFABQAUAF IMQDRCCEYZDRDDDBLHHGAAULREXZZOZCSVFBAXDBQYEOEMJSLPLUPQFYOBBIEPKVQYBCFCZKk2gt5r6n qsW4hMW277uPePJhSBIL 2Pc4m6NV5v8SDAkJLI2adO37bhhkbKjytFqOJN3vnoDzOcY6C+Mk+4oRY1ODoHuFXj6PZv89t3uwwZs/ 9sc9XBTD4CprXej7LjPN hXxfW2vu8wJfN76p6LDHRaksKChcXlXX/V6b/KK4om2vszdhaw+aX4I+vuN1uV7QjbntETp56tW5FcfR hI/bJR8A+9dz1w9+0rfe dP/Pf0uvrU232fO/dwExRIz0BnrcIlnFl+Hy10Ijt99vXeytbM8BqH7ouWlzc5ldd8/bW9LbyrdEBGe9 73YF5eL0NiZVO2mdS0Ya +vicOppsrs1la7sfEWYrbFsno5hvO9TpFMlN8kA9Qrm3M3eTKy3xZ+/RiOfbrMNFQmjSOW0bpgnPk83b WyihFfX2ZB9525fDP/YY sgr8jOHeMpSUeJc/DJGJR7C1oUFAOJhTZ6mk9mUb1sx+0rL4iJn2cFsm79J2y90pnLpURHbwIoE2Fsht 1Ufln6wVtTdPC+PvPnpn rYFeypnzy7mGe6D/UvLk32h3oUuo2nlebHOQpTzXPdke9cPFRDomcvSuwdUpq5wZZ8NUJOSryhsGa926 f3XRxDr96y2m0Fi+6O3A /lXlHGOoAKACgAoAKACgAoAKACgAoAKACgAoAKACgAoAKACgAoAKACgAoAKACgAoAKACgAoAKACgAoAK ACgAoAKACgAoAKACgAoA UMQrBqS3fjEO9QFaJajQY2a3JA/03wbUB5f56JR82KRevfZn+dVhddtt5Vx5h6/VizEIVPm69Adyqrqd ZC7CAezer6Sq83OUhp9s hnWx2euAZ3JBf0pErWI2X44f8zZA6KSgbho21XrUg7Ns2oi8jy3I9OGl0GZYEfuq2qmzlZyeu6D2gJwN uHujj3odLXVL1egwNOH9 /9c23j6vvF0Ea52ED3yu/aVxBw99844+5QhHrJt/thKmnclEu6If87C3iqyi2Cmg1Ue7GmeMqY1Vg QKOdrGwBaSbp9cDeHER0 m8ago0XRXb1ISLXOImP0PohwPkuBJnzWm96vbZuOWVCMT5ZncRvFY2KCRcsdhqlJKe2b3YfZCN2esPxX Jrui+Kbq1+i9NgUembw6 mQFA+ARLHuYFWwMkr+Pe6oSoWZ6cbk8apgltNrmZZJYxShJ9nE7JON1nbK9rDLNUCbziqf31fGDZIPSQ hziMxVIx05GgtENgMV0b f+XYXU/SktfXF7gwY0yzafOSPGzVpYTUZL6fhG/98beWyPH2dzHFaw6JtArp98ys+n+YrV8a4NDvZzGN 8FKkxhRpRzJPvB3Kirs9 e+ZBEhw0UUAL3gjsXI2YfreG5VHn30c74eJFxlKyBTymkeMHRqFlC9s1TYFnVutFn1b/fZIiU5ldUn6f Dgzm01kQTaGHCIiJyPOO 67uR+OLZ3edaYbW9/o0SyJT0qjw0Ovd+wSCaovI4tNbAwiAts5VS5q76vUTOZCX1vaSzVSk24MFfTsDZ 43kFYM0dAvdEJzh0/6Sp UlKTT0SF4pqE2yhjYYa2/o4aZmaM8Mzq5oABsCSoMcsj2hVk4UA2w2ZB24tGWaqb7YsTe91+swH1gvbl zynyBcPetuXar7cBRKhG OzhyL7HKs13wnEo5gNF2gk78W1laVkiSU38MPKxHsvfRYKIVB87uvbW8AkUfw4ds8FkUBiQPRVcE17B0 okLQql6730fc2jqRUtpN XfUyrWkeOejnWNegnp1Muz6OaQ8W9vOo1jg9+1c1h17hgqL8RWCqW5xPiLnbpd3OELIwneKtz6OHANFm 0y368xg+G2KkSb1F/Q02 7FjhgHIO6hAiILE52Iu9ziAz8m8/DKH9ZKxFarjVS/vsNNXIQNb8QCcak3Mc2yAvHj0lXgPkKXPCmPbP KACgAoAKACgAoAKACgAo ZWVAzLsMYIDkLyEMTNyZnDZBHaGmGLKXgYbEMWTuDkN2f4tpr+JjGwqV2khrAOqAxDFJZWq9pqSkX3EU hVOinMn2XFzRc1+Z007S z9x5F7tk4ziL1zEg2bjIGOqMclsIMOovfnJhn3Jvxsks7bjIvngJ6Cg5hF2a9h+Ieidd8mTbWPkia9XC 7a/kl0a03zpuJ6IcPbad 3Ize63pwG6qNW5yj2pbs4pBO6kTqOzzcxHLvuJ7RXBgYwy86m2dXaInoYgLcHePdLzkV/Ozzhq9XPuvN R2BzZ0TjXRHhrzIkPQjm hYenjJDjZ48pO5Lv8ufZquTqsH5Sc54yF6ayR/dVTIJfaRQZwmGU6tf1Y4zaw8dBYz1RwXWPE1JSxE4L /JZEn75ZyTargqANYjE2 rozS7vDkd1tjnc1nfyr7sms4wfX9Bfse0SxGeBB7tn/6WUGxHD5iFDAnrlhTUhDyho5zrcvEA6yiARaQ CjROqoby2t3KtXTi3pkb +mxIYBFxv0x8GzL8AcSFmMVRBlMapXjrB7pIhBvrNH18ES1XSWNycTihKhh2Ps7jv+dXAgJRj9cLvVL2 Af0Jtt0KNhRSx3o4TKmP 6q+7PNx28zVFsUNzpqqfRp0PL9pOCS3jLApuJXuP2IEbixeINfh1OaIRBVkjfPZNPOwTGzO5TaRjvGSE vmkn6K/5gpRjtrdp+i/z CwB6POvjlMYUMXHJTfNd767zGRHBMHZ8he20TAmyOwi8R8NMwD78rlr34rbOkaFzwt/Zx2vTbk6vs91H Ydo95cnO5V99utfSYDeU uXYQqIqOvob9ogmq6qszssIk60NR9nkQ9At3cPPfjmN+6eX9i1zApLZWW4eZRIsahQVYGhhMsb+oFYOX LT1+NNwv/KDayi5rP96c /ytsouaGdwxtA6zV5jqF5uEO517V2Um3ReBPcCLLToZ8pcDO8Sfhpuwi3+WPO5MgxNZm8hrClU26t+aO yIQXGTOb3QH6TTuogw03 o0253AxjnAjL370xf9t7M4Th7c5lY9wcp/sSkabdZMW8cVR/OUFTjQBJB5l2XP025yNX06jIztlz1PYC d9E8bMSX8j7aj7Gldd6g FuWp7E9L/0+13HdUuGMj4V2ZZ49HQY9lG9kd+Dw32IO56g5hNSaFRv5zCnuub/kVTl1Fi6/zL+n6dqsG cH7SZaNzbmzcztQu+XKD mE8QyM3g75y/BABELCKRSvgyd8z/dAdGLpj2uePgnasFd10TxuigWjK6KRiXObTMPngJRCkUQu0x7AfA NSnGXOtHzO+p3U9W6QAa T46D3k49lqwJ0Mz1IPb7UKkndYp2FYYf8YXS5OSRMLUNYCoe7SgeObvuoV91e4/XiYKV2p/0MpXMP4UX WPAx5rmmw6i/NjuzOHuI NXNYhTx9wFbklbm0JKbgFVJJkYvhKZ8u46gJeG30wg2tVi4juThpsZbh4XHoBWbEsP0CtDHReEwd3k9t ocvjW7TFe9sFPTEGKYRE QXTJTKJOGSLESLSKLONKNJSUAUUVEWZUBELMHIQTZGLWABNEZEYSJEOLERCLWWZYILHubQ8Stj97VJKX BJCTiCG9CR34pbsSV08A 4tJoes/EqZcgENcBtYny8scT/pmC5Czqpj4ud3SjU50TxIPH6bdGEU+z622ogx0MaqvG6qcLghGxjwKh LEZATTiAVDZncm6mya5C IOcjiu/RCEI4sXb+1vr81aiYcK+Efb0c0Ka0KZlLKkdBCowMCGnySsFvFB4BMx2NQwJUvNfafrFLqj1K OalOTdmVdT+F8o3mo9Wy w3veh9EzEXWn+79yXOvCSONWJVlUYOsbAb5+3lzWqirr3P/xqqGs9X8OWZsn5wZVb+4qEzF5B4mD0LH+ 9/WipWio+xodF1saE/gB KlK7Zrd77WmvIKpgKoROHNhSmVVlCGDYLNGYCp4pzTl8U7DJsZ0n06dGmO+8RPGsmPaJRlrKA0V3eaG8 hu1yOs4kzrALodNUIg6u sEs3OxGtrmQHUSV0ZxbghpPFXEw/kXqkQUAHSgAoAKACgAoAOlABQAUAFABQAUAFABQAUAFABQAUAFAB QAUAFABQAUAFABQAUAFA ESNQYHDQASLJFXTVBNAZLHVTUJSGCSFJfCsKS3XkScPtcL0J/c0OR67CnS5Sf+XNGhcVMwiEuN4K+GkY v/W3XSQAQwE1QNJ6+sVf 12B8JhjvYSRe7jxiQ8SJFFW7BYb7UHpzxrqJEojlc0XzxvuSZAMBNCOGBGURSBUTUQRZUBUVCNJZLURR AUAFABQAUAFABQAUAFAB QAUAFABQAUAFABQAUAFABQAUAFABQAUAFABQAUAFABQAUAFABQAUAFABQAUAFABQAUAFABQAUAFABQAU AFABQAUAFABQAUAFABQA RKRMMRKEAFBUXXJZKAYIDVACSXADKPGHWOCNHMROTRCGHIGBEQXOMFM1x855hZ30TLfkd24xM9pmEwBO 91NahsMnADrYZVbIe077 4HNAGO/eK5STgVD42JwCk+7RjafIFww2tLlLZFtCMyGmEbPoWkRNTWuWMrfqoumw7PyV1fsgpP+SJSSA 4bkiSqSCwobK5C05QByO 9669TGu4TA9T8XFK9imjKPk5iRISAZjOMaTTK1C3YxO6A26RpJgWjU5m3HWrHEWdOz4bNgDWal+QN03f MaXEXfeWvWRMXnDlh14Y gIEH3FvaVEgSBBtAE98frqkngNik5uUA1BhAE1xJItFYDBuJDyjprmEZ+57O5ZThtmtbyzcxYT0cjni+ yRgL5bs6E4tL3sMsSY7r cZbIrziihLxSieqWlYs3vqubNbEpfkYZOQdvplYeAZRX9dYT4iEsoFTP2PoGPMEUvKgNaqrEDnmvHiK5 owcaRIDFvVq0sBR7MP/E YeA6uJAV3DaWUrUccYBsRDJagFCkmsettMln4eqFSZn48y7xykRV5KPGNDCYNPTOSPEKOCARFCqhthg+ r8D5zyKwsydRyX2J5erJ iaNzSqVIPqyi0Ay5woLWsWUEy2VyP2mzb6UHGYgGS0EJWh8IBaPzXodEzomCVxlfBLlCkuJXHVEPwY9b 1flZHOarrQXpwctj34aE nfO8AcWP100XYsgTiiYXBKOFa3badd0SlIeLAMz8ujOKzKblRzXgFx4jn1ylMO/o7EwvBNKbglk90d5I V9vHjvWff08NJJAHfsGi f8jcPnCjb1GKxCKshiMgUvkVxIVjhN3ccWJQtqxH0EU2j/zPDMomjDpntz2OPSCCv94B1LdUh63KlMDE nLLNw5BEKofbsmvyD36u Mp54tMumoD+v2zxvrwEMy38bEKqZC+5hjYX8X7ro2XbeETbeyKNsu2j32WReqEZIDSmnfOTLJ4EG7JOq PdnnBxjOcHGcGgDEvPiF ydxs18RUJm76hYQjFe4OkiMJplSVjc6C4LcLhwyZIRUZYrEImYKp082teVDHlAy2nWc1P30+bHPHUYoA R/TFuviKT70oql0itFW2 ZDa4ScX+l51ygpZxidJPtz+O0O281MiYWWKEZTQ1FYIGKPSNwL1gF9BuBXgZRBX5wP1xL5j2PPKct/wC dl3adokHMeBacNqzze+W VWwbzRYMD6DC9QRHlRs/l2xzhA1zOBZM1ADdXFT6oiDSe4Hyv1gsY5JUBZNhS/H8h4hb1DTnECBcJqAp fszomAzJTF8EV88zWgVg 5HagDoKACgAoADxQByfifxlY+NEX82NlESeGTC8dgzz3pFtZwMKtM4j1Utha2uITCVZq/RVh9IlYk9ow GRlvxHQdxZ1fbvsfbRe1 wrJ86J1AQa6jlM2biKG0+Leo1yQgu+2d3vjbuhLy/n2/mUxyxmLcJljyV0fydQzsAZ3vA6Qk4qRFejDE Lic75xSwhruGV0qMdXbF qKv0vNzinEpcSNlE1kI5hneGm2dZzcxRj35sn0cjOYGpBiXWSlJevHlWBGXnRfVuBdafV5gGTZuLccPp UihtTYpVpLee7ATuBzZr v3hZhtZOoMKUszK+zPPKliMJAsVFWIld3myEhZAB0s2nufht5btD54aImTcjBV8H2vl5ZI09DCzSQGRy LRYzcsfwMTDXrtEq1TwB H3DhCys1W/SCOTT+vwHgALsjWvjgPNIyzBJoruQIJyW8YTBr3Mfz/tzpXGzuIdNhPekNkEPr5zCAVZDiukP +1COyYXS4FvKH+IjP/Z0 kgSwj1k3YVDkOfRlHrCQsydsoKkC4OLl1ATGUDAABLHY2b9s+H0Xiy/re20Z7op1ksF+pk5nNYXIBM0k IiDdlChjYuF1BcHtJgKx EvlO2qTWb1V5d8EakpmLZrZFvgvTTOmjxgevWFILt8LFL7gbtpL5R+Xeq2Fp6Eq0N+0+KjTlCZyYZS4d CKENtjiU/QGHPMWu6wRe e/RbS13V1JoTJT6wFsov7KvnAouGJx+bbB50GAja0MVKIScnE7fR7xHmtmC8FXjFltbIYONlq+Ac7z5r NRC8UNCTeVkXTXJewIc8 REOw2kEpxJzWALdM8JHNEdNkIQrIkhojKHtAYlAZuZJnyCe+XhRm8LyX82fljZ7rj1mFmSXcohwRNwp4 yml1izp3C+1QXMPgu0I2 QZeG0mLaFP5NeKofR6pYEqcC2XIlObhnGMQdnTLVeUOLRWFmNyInec8eP9PThwKOiI6Zk+7w7sujtyUK QWtCgf82JKdLn5r6HA15 BUm2B0vfChtFtD6DPJxGARPkVnklc4ciU0JUWKJXJahFFAXF1Qy/wo/og0C6klQAgwKSvL1eCzlLE2rF Iqkaswx+73EXon1668Aq yBXGGMWSKUBXJKZLBZZBHUgXlk2lYyHFoR/CoiLRXD6Z0BDA9gtccdsLeugY9TkTPLrwUbMtvHTXpqc9 1C8ur+6vNRjnbUEEcTNZ x906PZUBELljdhTrXphILJXwAc9mIBgSg4tk1Vks1Txsa541DUIJIEWJ7c5beGshetrIHvYTYpAUlaAM RPM8y9VNqkbVv7LHUsG1 LurXbU4bZ4OvP1pRxFVHj/sXKBAmx6CaNueh0FLMLchG4M1821Wg0gOV3LhjrdcdkORWEvVmmUGN8EK9 BqHF2A1oHVtnLr2J6rP/ ompbuOhXRuSV78b04nVkXrzs0CYM7rWlk/pTBexVuFRP6tQTYLYIlNgCJAGCeu6kvBRBqI6K7mEtvLks 3KToYf2z0A3zG0g+0BpI z2SRG4Zx5DSg9k8b3lhSKo3t2Cpv4uHr9RMcV9Bp4x88F8bYWDoO9J7uFfkJmuKZcEVznWcGIJmbXRUH ZId6y3Iv2G573j+1LCss uaYPU1A3EZaULJA12ewTFqTsVAZQfUZZKWkQAkVMSzxdI7cUkcGNuVqPo8c5X3slDKA+88Zar5KRqY6k 37ELS9y2Ca7DIJH0ja7S ezSnudIzW5M077cwQzwtVRCa3SFUFojMhqrLOQQ0H2U5fR2HPUWg9bSLfxT86gEjX+8FKf0p7TOHdx9z 80qyANNd2u9MlF4myVYa CO7XUR+6tkjmb+2M00CU31ahLWtfrXFTwUrkCDXGn7DW1q196C1y+27YqTBiFlFnxGKJK5XIv+aWKGNG cDycXCdbebU8Rob1Oekw 95YXKc9bvodX/kDGxipCgtr1aEwKOUu19b3bcyEM6lHBFSsCBCKI+DfP097cWIJ2uNbsVP/Fsk1DGYys ewJcRaBjeORCK0ls3BVk swNEBH83Zq/lxrk4hU9w29obqioe8cuQk7BBGxJNESjvJqBEcdHF0RrSACJqDRQkzk4o7O0uL7mx5Znv xeA0hrnvzvwZyybdSM2n u4VwnVHAbYMc/FWkN4v4IixRM3HJQjxB1XoOcBT8SaKyAzyAVUzHnGciSsYUMbLlw+UNqLlB2phFZanb sY5/OjEtxIbCVpomiuSw r4OakaB8galtzVeTJoO3OgveJLqXn0ajt1wnohdIxLT2P2gtzyCVpDTdGXsYDpJDVILsErc5MUzgJjU9 roOLiios3Fojb4AItlTm gknfojj7t65bfKUJR/wAO/TuFn0qBI0kuo0Y4W10iIAF8lvSoPhUKC7rehSLnjZpNXAHj+OgO7Vt5KNu M72OKVuxAKHiiDSXmPuN uFhbHlIQgHrmgDUv/JFZo1oBbNRhfSt+wovQMsQwV04vMyoGgV7+3oI0d3DFHh1xg5V0Mul1L3Gl2QF0 ZZkuJL+5+8pF5Ko69PeV iwKsMlKW04hNyhpdnftXzpXUjYdQLERvDeGdzu80x8jQbsyBnOUBzabrNzCRpiC7EjW0r5tebb2ZGpIx DlxQAl/95dzGPNZZ9UUo 8SO6XxoHHCqTJUTKyhxgecgfL1Su2sOlp/AMy3wzKmXzVB4yCAXfzFwzLYGdX4rW/eyo29X+TrCHX4Td GGnmwakx8vjuqwpi1dtF eYd5rYIL66rQfpNZjhMufWDVjNrjZpNWOS8o5wc5dY1pW4nhLRAiQEJVB48Y3+6IT1gFDLWuzYEqIWw6 CM+BOBAF4O9I3hu3Uo9d VwRExug211a85yuGIZkJXP92FXUtP5NhsmwLa8UCsLfRHPFhQqHSLTeCnHGOTgCdBIWHiCdfd/qs2m3M OQpKGsn08opF3pQRkxf1 y0QgizgkYBSS+vRO01qm9ZKVJwsC1rZNlCmx5r+8Dwh8xAauBQoSnmzswOcrGcl8RrhNy1/D4v6vczi7 C0P7yDW5lQpOMZMPGYIY pFk48XgJK2JYWF51hH8/YSwvBQiibVx43lUcaHFhTuKdtYzFTUqIo0VwLavWqjlBXJGVnDt0j+IdTimu Wa6C3xw0NKUhpRs1SghG MOsyFDp04XEQQvfa2x7aeq0UNQ/CU717u0RBaBf5ttzojlyQ7kmwDZrBdX1jXE5gP5hnbk4uWB6OZLAM UAFABQAUAFABQAUAFABQ ONMACShLLGbkKiPge9AJwSvWhW5wEzgW4PNnPzN6/UlegFCX187rXfvlfpJlPM8kgh1cwYkDmp56e8bU zYJENXnsv1N3gQPesQET F+YUAZK+DpHaQ2M3hF5arVE/PPtBdIQeVunoh7W0ukJGK5seV4x75aMtBNQ65mYz8t6ooIOkvxM1cpVK ZSrsgUAbFsJuIZ1oDnEI DzK4VcVVb71H5c70xXWZvwf4hWUyiPoWLYN++9vFwGMCo5K1xTDgpwcPSHDj/KU7dSmd+4zgYOsR5TAn lADuEuJFUkKFUfKABgAY AqGT53NPGFCRLJKPJOSOERPBAVDZQS6e8ok8W9njEUrixJPJugOBE6RMeKQPsIJNQLUFDDW9HfDc77hp uAZEdVjwxMjgImVkMRBd hENqaSQqTopQxJck73cKfPC1ZQGo3ECdLKYu+GEYDsIhhrV2JyVuB/HJ8op9GtgRjEXnLQTkXCKll2xR WPOiShhXKQtJUOy6gB1X 32Zom2N2FCZGSnqSsIH3XKXOFt3uj5GBYMN8bn7i2I0xnNYicGWGNFyS99YdKOI0vxLUUV4RIWNLn1Z5 sCD7wnMalQADnYC4CmEE SJRRMZxFq27EDpBooRehIV7V9esDjUIs+hr0wh8Aw0T5t6r4vJjhvsHrmcGh4mziBlqo0nn95DxmIahW AY+YDaQduSDjPUUARSeL 0XkavxFp5paP0jKPniiijJUuGqqDsfvzN8VgFxpwCpiHG16KSZqtuUhWykuvRMzeD1gBppHmWZJOIKZF Rio1YgIfC8rmg80nMkOW Dy32cdbLGd2zboTlp7IbjB1bDAFSRVZXuWnMLMWPFv7tEXLUzt+OmeSuBnxvTgqsnkGNdFH50Y3iLyvW 4jste3/W2JxOOyK8nTsE +pKzZWMSngrobiKUANWtHVJTRVZOEBLZBVwyyeMpv0sb8j21ipE7rFcMyfGFw3fqgUWnkdqsFYTOyySH IOxkUY4ckCThAOHqOelF e5qkL7SkKFvrimL/X4EP7Lf7fx6EYgVPN302AMlwQy3Pm8XyiFfsVMSl3AtRe1FRh5d6o1KKpByfZdLj jELHpKWQClpVNliEw2qz 8eC9MQuT3FkWGwF2O4IG5SCgpw7GfzVTop94LLvTdDv2PNW7WNlHTrMwaWiHi+X7fLtVTD/LfcWAA4/v MMEkp0e1+503+9nmw2nu DfQtlAP84RhU/cW+DJu8WhJJKhYd64y4XtNHe3eG3vJGup7pGUClheThfLFJE5lvyMYwtgHh/AMJbYBr uTZFpnc5pNgK8wYCiKAW zu18LIHUEY7FpDLs+N0OjsMD3SFRrPRiuv7srOqKqSr4UFBae5c+ANwIyDmgDsFYEZHSgBaACgAoAKAC dIaDHVOiZvQ92S/EFhoz Gb0c2wj5LGtKQZvKIV+MzslDzd7cdpeAXEd0DwI1idhJekdGEZdwkEDkml9sWekr3ZXjETPRIOB/FOka nSELIICm82mLzWzcKFP1 Faukc5U1YEPSc9MlID8g8nnlINA8atkshpOCnFK7GQhSHGOobQ5HEIiwtyUm7n/bWNvJqEhHkwoXeRRv +YRle0fghnKjJejJNu2o 0s4jRHsauHnsUQj3ViZDmH9qAIw5Udf9FoGJjRAwBEctX1h9vUf9ONP2joRgRIreT0ktyH8OJQHaAYS3 nvKBd8GfMnGcYvjz1IQv yMzXCqYnEb+M2uOGWBUn4I9h+wXyS2cc8QXARtFfHfNFIMLfMrdR8gJtPXW6ubCFEMPDJpWSfHpZXF6H QSAs1A4lNwP2IBFo5IZj tlUE+WWtkOb2Q9O46I4Bt3Qn1XKYefGrKCVXbMhYRNYO5bnqJxAvD7hW4rrPsYnOPZjANqQQs9CO2L9N J0cIKsZmeONrukaZjFKR HC6uvIGx/cPvSFLUv9skdP1LCS9mGaUlQwrepAU+ThXtGYUpmE1qkLEKdcQaJ6auti5BQ0gFcq+8Mx3F VaqJQ3KER5JTqjGck65b EgWBJXSF9qYKyHgH61NYZTnzyvynYhHjFwZbWBHaP0iy2McZGIbqtJZayx8WyFGnO72bApz17Qsxvm4H IkwfOd6huCE9pvR4512g uoCyEwkSNN+1FRBjNvm0GOOSyMMihSMPAIC9MD+mgt5D7ofFh2KMBVT2NFxfnTrtqsZXyZsjj09VXI5P XZByQ2TZoKBV5uGFHVLr hWGN/ljUz+EgOklKpnPIA6YWST3b+V2scgE/iXwI+uqyTKGfOl8rGmC0iGfjNPouUJYQckCYIa5PDMuo MPmUGgC/jjVsE89wAYvz IG8Q0lFquzlwjdQdiybnL8qfFPmWsbsZIjLqeHJy+6eTfwDNom3gh4+5WkFMpeqAMiEIGJz4QXDCgSsY 0KxyyIRQRZ7ukqrIIqDv DLfSXjXbySiZUyVaNEjeGRJohFDtRSr/GE2LTgqsSWgwm8La9uvGtaRqNTnZcL7TKlA5zHYbDKeKdJtW TkEXkyPkcBSMi2M2MFgW 2p3O9Gxlpan7JKaWPvUHiuDFvCVLaXS5kFZ6bCePrWM5QGWPKRVMTYLYEAjg6v5JY+EG4rs7vEIq8CYQ t1Gdcgunu+OKZ3Sy8XMX FAHFw/Pz6KHKLg3zmIRN0K28spZlK27k03sS8Z7898H5CmNsyPkADgha0qQCEMIZJxTv5sT8yFud2Pe1 d4wx6JLSxW9rENZm1AJA PLxiwQiOXCNPbKzWl4n3bgAc8HVqTrokx9A3y1DxgfdYu4crcHmzuGsVfu6lpmNFmc8h4SsxGV/mbgXI P4xHYjDuKu0/lDJlGH0X NqqPT9XhgWO89q1pPA/GfRnIcopHNoM6ruhUfiXTIrG+U82D7A9tmVqlMjq/PnRdk6rzGUDEb1qVTImg WtXmwgY0kEhCuZdWsfa8 wjrWKfBFV7zU7Vl8nTJO7BcrAs4ZoyYZtrQ+USqjyTTRpoSK53UA5va6PilLMTBlCBjE2jvGr/PskEbR g/KAWJLfLyCALc+ENWmj NnkqHf1rpNZ/VbHQwvYX7vnCqgaFWHYVXvLMtnYXwMkG1WOkLTTa44ta0udSH+rQRN9zNC8TVAODJCUF QAUAFAHF+FaRhgx3ic9x UDLtzwhaTQA3jxfzbwyoYRiVQ3S7EFpe+5PAUyrNE14cDS5pqwXC23JKZeHVB2nNH43KWNzVVquY0OCg YGgCA/L5kj4Okg29ZzSw LapxJVjMHvnZBIwgK3tL94iMhMUPNzH5iRZ591A9F2zat8XVFzN0oPjLUwYM0kAu9l6C3MSyaYkcxDC3 +u8c8OL7tcpsqXRvtnc8 cEuj1EAPsXeaAdDaTGzhtfhMAsJtyN8onHPcdi0eAYeXX4qIPziUGVg0VDJ4oldNVKhLS+F3ESOLMBim +C2KQD2yJ9V8yFr/dTSy hKBbcV1IavoGfhGBt1tZrRnpBM8ieMCDvjHW3sb12F7rumnCBDifjydfAmXeUtr0GOhWA08sSjxA0kPH tbUbmqH84LzT1q1x8L7z vgW1STGGuHERPnPD4DWDX0LQQ2ehyNXHiPhCc8EgV7mv2lcxo0gj9BQFAaGFMnzqPVYEgD2bFOzKkzEc ivWwLPQI8JCmRXIMYEEU ZCKEBvoDuaois9kt81uwc6JtAaXzqYLZPo6Lw6uPIBB8UeGxdK+N51ZcBLsV+PrqSNLuWJUWIXRaKJgw odTw1nX3BvKZ0rgUbIoj cTxeJORFnNhKdzjFpEe3hspJAfOGsULDjyFNRK5/XRrDTK7TCsDDGleq+gxopWHsPWUuROENEJwNhn24 SmfzqAak8Iy6vvhJ6CUo gC1b+Uh842tSGO6mszwlXRYL0kLeoQlzi5RW1bPwKr0C4Rylr7rTa519pf7rwUrEBafHuBb32CuUMGvt LlxodQXh5fkghxvItvTa 0dODvt0MRRPHfxZA5obNxtZGfiwApJVYkvFKhsxNKynFyYsBbt1X9xWl25JCENamNA9jWN7j4iUvhd8A bCORIoHlVfIEiFyqvtYr ySMMBf6MP2cf9SetrCf5FWZbIwcoSp26OZDzyewoVnwCsLi+MUItqCSiaNBTEPYg2G7p4CusETa0befA UPqjG1pgifqwjG+ey5Ty RNFRLq7HkRLLTq+lKDMdEB32mTDld1uWZMAt9aCx9KPfANvIHkl3YkCfGjohIJxStXmYCtFCiwu77oe5 7zw85LZiMRa4CNt8NcwP +KuZImZPXwiOzM5iEpTzwqXHRnmCljufxkp/yLy8gi76YQPLGYUsQABZcebqSINhnFNZZluHsp2llqyB 6ghTb3D1FoMYMogkx17A zXuQw2mtwsBQIMi+yGS25OprVp+pDZF1hnBK2edHQpWeOOVGmCqZ0cnBQsyRkSOBR8TRHPMCPUHDMruf Vb7i1iyfu6d4vfntLZoZ iM+yCqFTyPgpJ8qDQuJFT356WJfe57il2SkqACWNck1syGE92XkN9jEXu2fcVul9xCnR6VLSPA0eoCi5 vHLMPvazgWDMZF8ayYz5 n8lEmSLL0LwTS4MX3GjroEIWdvcfhZ2yFNggp0HSqugQBnq5OGKqJFTjJUVO3zllJ3HaIOdj/J15kYwh R5sl4QFwhyCoExx0uyaM dmQXNsOW4q2oTvFTOOgGlWBz/NN8jL9pWZo/nukqOOIAYtmM5IcIow6WaOKPHumYMMFf6HoDcmzziDOC G6Hnu4zhnQV6tmEjdyeI NPr9fDIUhFreaEcDmUYOl0bN8zdWkQQFJ58CYrZCjOXWJwAZyqRQHlAJM9mTdzYZFQFkGjDD6N/utYbS cI6n6TVs7wahSCvW/Z7V 5XuWeKH7kp+kSNRqykrPmPzPDYq81WVKwaQ9VyQ7uqbhNjKP9BelP4KZjDwfl6YQ2hYGU5TliDCQQSin LEDa1DHrBWAurhWTQDgx HxZJb6KBAK3hEow1V2WQJ7CNtKJgjI3xeUfZ+0keOWhrD9wTSWNchP7hVH+k3zwkFwdLzeAJ8LnaLTAd TdAvBQ8JQLyTZRNTBG2J G++zvIMj/KQFYJIV520AmsFmvGlXJWlphAWaEsvqoO+jRV5h6Y74XNyQp0XCTFjau0bkGRgcXANM+H9a czSepsOjl5moRIbFsT/k vLvAcGSBtqBXJdFb9bCbTKu6HKtNVRMCLOBORaZZU2GE0xkpWbrgl9Oj8MJHIIAj8Rbpr59Og/wAgC4I 7RTDNVUr307SVQpKbJUh Bms5yQkXTk+DBO9PPgupaBlOfyKCSFMJ9+GT4cVMfO6jvhNUgmvZZdO24wQgVGcVpJBaEvnulpdpYFXZ DmAn7zUud/ahHEbPybDz Kpq0L1snp8tCE4GO3emBM5UfTyRjdvWGAqrgLybmWA7ICE3LiOPa+49y9R53h8+Q+RT269UdVoLnQl1F TBQaLgJOz46QzF2rRKGD quJTO0oWsCnCqp356G65ypLlMSE8VatfeMvSoL4Kky6FM94kJ1ngyQgRfMMZFiOa41EtR7niJPurdTty EO9w6iiVcAYs2qbiqTpo 0IseCSI1tRGDqTDaTJETfDAlaXcFf3X75QPhW1yLsZ4dkBNAOUSVF0PxEkukmi5SRkfLNUatjwZhf3vP PSj6px5jbsUaZqM8if4I qO8T3xUYaK4RkCedzR9F/CXWBCEREKBZYzUO9A3T2H90kZYMRu0ksKFI4d7YksYZ7aRVl9C4MV7mIICD YLMIXdtuHpQ8bBW+aS+j 1hVNOEIWO5fcKFOzVSa4tECimy/eLsLEDmgDJu/GGqW/nSwz+LCS9kPrvdf/0BYLqOGKXkApuicsxnJV m/rU6TeR1D0X43RqfZ3c rqO+e5uih5w2zTqpQNva192wvQTXnciMPyid6W/pjQX5XB2g83qLGM/RJz19NHlSV1m5bbhH/ygOvmg/ UCAGJUBOfSEB0lqtMTg7 VCcZ103uo5w/7MiG5ZuIkvPTad9oFC+vEAkzwWVysuEOUpGw7nWHMTaSSaoOqrPgkXMDZ6DsjR17q1pS vffJhIJg4D5YBQeEss0q tYHDi6wwlZi5UAttDovZZJX7n5Upd6ABoeTH+eRtPQReZndt2+ZCIl434yW95sfXYOrP5zAjrn5BETQA A0LVVXpo3pnWtXYPEDHQ fC4QaPgMAPqgDNnMhRhrXGFgs1xVtGNGPpf6SMTWNCCgf3HxTULJe7/0duk7IsJBPjlcNcQsdBxAgCIE MIHRBE+X3oI/POJg0bUp OHpx2LIq7Co3kZu4cO9BXGQ+8C2woxT93U+5wbuCnvRD8llA4+8nnf2B0d5eJVsBlWIPtBKg8S4KkWWZ wr7yHJHJGk7/c7Q50yXo pKHH2wkCqwbR/ZQMmPqefXDEIgChiCQS8fyBRYS77EDAMpUYtN3dnPJHTRKMZzVE1PiFfjuNQUAVyMV3 mMHD2Hgr8FsRJjUH9yG6 mg97zYABn062oFkQM6aVHUdfNVtpTQALqmzKqCwM7sEnLKS0PK7FS2NF69d5yukmLhwYROVNtzZJ8CjY ak82JVSRTHGJEMLOJLVr a9p+aRxLNs3xhJKNnuAOepSgSlJXGQxHosI1EVD8WyAHfytshZZUqOCwYRFHQmLzHi/Lb3nCVCxmEw4V puNPNLm8EOXGHP6IyUqW fK3yk/wM2w7OHVqU3pVYQHHKY9Qc0npGy1BQmqCkJ9nl36dzGi5PGTPMEI+AEWE5F1YgP1w+dbWYBpMF g+DNygWeUoHj2yGQDazc 3pusqlxZ+RJC0TFWTRUJKA5ls8Id+VLayMR376mZhv/B4DSLVwWJB4W6WEaBUfqmz4aBZkIdSOEnHWQL EiU71ULCw4X9v9nJZYPN Z10m5d79uUJJxYw5FBgjsxCgPmilnJPdJAg4T36nkdcJtWP2oPGIXgWIrAN81Iuik5nCLzDy1WWElLKG qj3u8TItJw591K4vPfsV LXFczC5KhDNzCfqQSqe4DXTqxSB//OVpIroNkFHRDxnSGfPCnmCSQXFrqYl4AswjvQvXMVgQWQqKMzMW +4zQwQrfhiDZ9xVRveHs t8LUZRLCD414FCtyw4Z1s/P2+fj5v+IAqDF8EekG+6j/c/wCr+Rf3f+6e7y7EaUGSZuetSX1NMlgXTKX ZVAZyOhYgZbHbOaAJqAC sQsWFBN3UYCw03b+kNEl8+ZDPjBiEpKHAssRoOQ9jlaIGQYES8baKX1IrwRLWmU8tHZXPDClkNCsdDqc OBYQr48RIkeLaIdixfno PXjHvOZKCppnNTKcPzDRi1L36LIcraUOvy5hwiY59xKDvMSG4JzwJhxWVt++XIRJYZJo4uVdU3u0Ksm8 MEZauoFKQ3yG+TJCkbYs iWPuWwmWKodLDJAp77EOZ5hFatMWWpvBiJuEneKPdCoOFJPo3nDKXIezOSuvMxClzApAuseHjYkojbcF BpwOLlkZfeAAOk7IfydR n2tEXjTiQo8gLjhc8Qay5PzlKNb9kWk1GnJ10kFJo1LjdtX5XRRkVkSq3YuvhWR0MWSBPUU7aCQ7lXzD j70Ew7oFZKNspdg5PjcD YM5QUSYg6iAlMwHCENKFQ3dPSznTmaBoKcWSiAAF01ZTqat4BuLNaawtHXL6BMcwT6z0HzWT8ZSgEdLG AZhR9SQ1ybgdyTBfIvpu ZE7m3ZnRu+28fLBYkRt1bUV2qsE20wtILYRqJVCuDJjTFFTP4qaSnWKyTUCmNazDa75lFyj69Ql1hNBB bII2pBRTBPGTojTCQ0EG Cv37XTAII5SRM4esw5gnO4lT7GOpIEHVCIOKtYC6jKIYCwTLKW9ev8SOEVNi8EKZdIdBbyU7d4XAS8CT o83IujzZcDmdFWOelDQj P1OivD1fiLr77Cbe3JerENbQLzc7JHfNDv3nZCDz8fIuKqtXol4GLm4LNAdlL5CLGfw8vvYKMWSJeEmI rxyTW/lySXMSxjzJcEwj kXczxmssOdPWZXfTHvaXbcBpqHf1h3M1WjIF3b9MCVKwBcERP0i6OHfMgBRC0aCDUGQ7Bq0LbzPtKi5a gJ7cdVdd1s0l2JWYrh+V rwCGMr0QtOmeOBIVAA7B5V4R4tfluS/GS0aDqyBd9hYCFd9Fc+t7OzTiQwKPQbWQMCNHCeHu7ihpU5UZ Yj/Cn1VnaCPW0clOyKSJ yFrdVIYhdVBNYIFRxJLb1KyilbeEk5bCb1iQLYpGY3NKj2yOyktWYOwlFUtXABFOVwlHkbLz4QOtQHX6 e5KJp5v6wkp0RdVNqNGt 0UERWZEPJM2xLQLuZOo+l+CeeEWNcquq4ym0kkxKDYUJmwESUcCRiKGdliA1VbXBtMoxmwGfRIIOIOSI ABQAUAFABQAUAchqvhca ik5Zpofuy50rDDPtkjxhmSLX7l0ABxXEYOT0SJEwSTwvgUrPiunCE9QZy9zIAD7uyQl9Uofvz7FmqMML jDO48z+XHbkYM9Np8nyM jX7d1QKAde4Gi0sdlBk0VWTMvyhLqErQqJXMd+8xIwPd6RnJ85MgvFDYxASkW3ICeevYZhsaKQVChP0R NrZ+qsdgTSB4i8H3X6jV z9taCxN9MPTc8JU4R3195XuRFdIwoqzfzRsV2N8akdvcaGZkSB6/hy1JBgAFJYbYjBajSfxCGWiQzL8W zJJFRLN7ExQog3VE+2T5 ixChkJGNQPlqMaPjbTyxKNTg7aEtSCQDDmc0LEGYSp3ElrK8Y+A1V1VFgIIczGTONerdIVJJKuWZTrdS VRmZBNR19eEuy/BuoXGp W4shHKkpz661AmFW6Rv4aprRBJvW57pE+gtHsRxChWZztSWhEeA2HWcKAZbEmpSNoqkjZiBvbV5hFajG ZZ7cqFMxCgPZX8c3Y6Za CyiMX04epnFjBwjJKI2M0vBiIQ/gE54qDYZ7n8FPheHACWijgBHGZtHaMHDRhGwCTAAfDp8r6B/27qFn dSOyQWaXAYJJJFIzSiMJ cbRbNiQqyZ87NQiQ2Z98KcdaEeowCHITzVsTrtrXPEKNKPEKlNyegJIGYt7iVFNUNRKWoNw2q29486Hh XTlKXi0z+2s0yrjepSR5 ewRi9srI1RE79yMRu96FElC8E5wLsGEgTWGf0YEtiWPjuF7qCWugHpu79P8uOZQgRwZMz1v5P8CDeukJ 1aCy8+QboWLCP6vWuYgl ztZ4JxwuiJJZLi8TprEAoYzXdpvS7rzywypGzxf2aciTWOhWWXeEKphBdWxbquXGckgLz3ZwptnqGTyE toopUii+yJPc+UVVJEkl lfIAOrBIGABqIeexrvaSnYNzU1I4dGXWSnkJISrAXVbSKgm7TVZTTmuVJYyWU8UjzV82XmJcBprhbcUi T28ks/cbXYxQChadFO4q IMQr9uqpS9WsbqTTe0Onl8wORA3zvxZiD2whyNWZRKMHxpAvo7CbMIL1aTKQFCoVmnSuNROVBJqQaafR 15bfW0HxsWsnQ2PrZrXr KszfNow1qxROFmjmEkt2ngFBuaRJ1RyOXMVlSdDDTBpCtNMHIyLsEPOVaOlVSUMkUvXRMTgGzBOUAbCx AKACgAoAKACgAoAOlABQ AUAFABQAUAFABQAUAFABQAUAFABQAUAFABQAUAFABQAUAFABQAUAFABQAUAFABQAUAFABQAUAULrVbSy mcybeqFCe6jnZU9odycV BQmp3unVYiLbbCZbdngalvzP/osnTJvWpWZoGCxXxAuwvxRk3Wxs7UFidQ5+I6Up9Yl5r/vTcLBd2DdN VyncDgyTX9Crv7620AX1 v0l4iN5H0qYnfc4gyCF6siDP/VBQbNSdW4M5YgVAbP4/z8ifPCVSZ8aiOVWNKtsofkdHqIOVGTYCURvi JAFiVKQUuPDGIS5f1psE KjH5k9mq6sPbnNjMlogJ5GCC+J3eUiHGyrEH5xzOjeyItbLuXGteSRcSjJpK3tCTYvDCmvvYXz92JE5R zrxocc1nkqlW5mgsdo7K Hhl6hbnC77DZQPusTlYKmhszCp1KtFehGFLs1KGKUpvdUa6+jRB3wqkMaWZOgJNrTWKW3iWlok8ZhfCj LPZdnMSQzJ1VgX6hTsYq qC88rG/hZKqovmFSPMM6CoxfzM47jdJmBOYK1sNZqJIP1GwgCQy7MkIO1LdYEHWLXNAWMWNWZROv/rHi xRQD5nS7pmlYfvt1Hg1j lAGY8zQ0WLB+tNPkqy4qQMpXnvYquEiOMPjRAkcpiF9sWJ3DHIXzLaknCvi4Uxz1sb+xl/LE/mL5W/f5 N3vjkdsLE3/i243APX1e zj8/mDUOkYPvptV9ID1wFq4cPrIn3+SnmTCWtQtlif6Rs0l9rm14F5dxfXYWL7MCankbPZynvX327JHS FyaFBAMHvI3EMNKAQWAM BN1BAAUEp7p2w6oOR8dJBur/TrHMBV9QrpsfJ3paPVwNdYD97NYrfYVH4hWUdHxY8HZUqw0W3mgk5vq9 je/jgp7z2KTWv0v4hAO/ GrgLtb1Pt2Fbp94GGUdQzn7HMd6jgSujWoizAFi3GWPVbvWeGUvT9aHAqQOxAcVVizCiYRQOyhNADHU0 TmoLfCdt41+amYliOJC4 zwIzw/eKs51pC0YQSUVCkGKAcXQPzXFRhz2zPnNJOMH3T6wvydkJ8KqlLNQUFw9MO3unETEHbbT8UZ4F AWqACgAoAKACgAoAKAMb GpRRcaS9M0C6riNNZaRquNFZjcGOzllKi5bT2CP2YumdzJiY7S9gkT/Ymp0wF4WoX43SMDRHKPVCOPKJ 9UMMbALqjmNkZ2HO0Bny 3CyKYgFOGy+yTT0Kbr7VRXF0bf6bAYUmkD8SDCZbWk43HDYIaAD2SRJHpSHotDUKRSLM9WqUVDmPtVFX NzoQlvJNWR8FIKVqzTH3 bEqK4MLOuAoDvSO50k0qalRnkJyTg19RBk0OAQg31M5u90r4dkhpo6acnZp4znajkITBjD4vCUpjcLP7 rMURqi7zuDOPVPuI3Tlb alIQ7WZV/WdJfVuqNd12MDUDDBUVQVTSHhP7m8SMM8W4sKvdVHx7NtSupcaMMD6VH4gHbIHxRUZJmvI0 u5THCxHAwm6FF9lSCdaO Z1bm4F7uoXDUaf5FZaP46LlQZ5Gq98pHs9ENTlYjzQvu9ggGPLj7WjdYipXoGZstQluy4V3oGPWMgiiz FiFn/DTwU3SvdZPH9drI rRdG6aB7j7WnuOXPofc5Z7NYYVhJpGIrtNqJKtkDHIcOAbCVPVxlFUPxId948K6JLlKrFmzs2cZ6qQFO zYUAIyrG1QMohVCTFlWT pIJFsbRWAx43W12Fjt033c4wez+mDZB1NXrf8Cg/wlAqB2sLAIRbJHDDOKSt3G9J2l0otuSfcbRqmo8o cTfPKj413xf05OBKKhip asZ8z77AhowOt7E+B1mnSjYx0Q95ipst2nVaLTgr6qxhcXbMpU4+xFiueOBgdyq2VWFr/ruvaCoyR751 9RLn4Z6Nh4m9hHtGGoIJ uAjQ3ovhsACr0MQGODe/+G+n3uNKLZSN70rnBnyRfUkI7I38m/Ly6lvI0OSXuiyLlD9dTPvTRP8U+Irn WZks2aB4TxwBCzT/7tVe w+by4nZafsmQCHj3GGKH/7+GPZgnFXYkt4pi6ccGEAsdO244o8CY4jj2zlZivliHYhb3CFcyd6hVNNOR dkY0aOmRdVVoAEJc82lC G3ll5599KRuLWVPFztvlvrCR6t/O4V3J4gkST0caZvcUJYonSMNgEVM2ihlZp4OGLpxHHxO8Rrjf75TH PAlyDVDlVijC1K3cZ/Ev 74bgMXNsrkUq4VA5AQavxcCTTNSnsN1u/eFJO/fO7EKSWdUKBAFBXETXZTyM5l1LpvDVIO05dpBPyJPg M+RJ1NQUAuqSj/LLMEMp yPkQr/FQB5y/ed7Mj6qvZglcnelzQ0dRaqDI2/CXIzYHw5hGbAL9IflHMThcW6oTA16i94X+ZZ5N2tcB D/fWqAGG4HSXi49OvbRB PSqEjVwBtmFLIjVY3iKjUPpGfSDCcVSNuTvdjz8Jpq4iiG4RUH8JH21L8Ed7Gnc56KIGIS006shLwBls eAYsbzP8aHBomdCBlSeE mlt3WyPjFHa+TH6OHGXhdTYITbe2S6lq48i0ry1H5qoWmVlIZsVNO4mOnDVfCa4ms4yXRgjWUBgsfJP8 X4fa/Po0fbLp4Wh/ivfJ wqYtqIgrG5ZKVSnTvqQjs2LwlTULJOupKaLlPuDQzo8+7FmgG5FyY2zVhBTOKSoPbZTWdzXdmx9iFZWc jbOIP7H/Wsbv3xGkhFMN mPVzxgLRvPQzZbf8AchvLFY3zZsZg2SO7CcABx7JrEf8q8er3r+ECnPfkFDq2NrOSv2vzghoVPPIKFJh EQnSDWWy6EdhYjTesh0e kCCGO5/kwTE76vEZGW5tOBCc/1DBYIygOFY9LBYbKB6Yt0K8RWEKYDpdIgWTIyIHttfp8QP1rbBF3uo7 MOggr2tEHVzGbasMsH9e 2lqW9ma34eIIqTGj782XiBHME0ESCtp5lNQsVjXdgXuVAxQAVOwFVjAuZKTEsOyVXsNMahnZ9Zrzh7pm PpKx+hSQSNQRkjB2gqaL sE6udfRFYv4W6oHmyaNYgrKXgZefHuF5+v8zeO7RWUlgWa2VZSuD16MZ+TNGF+SFX1xTStsFJyTGyRLA SW3ge/z8NJXc1b3U2Cq6 24eVzGOQtxPBNpyDpVTHKT3JfTKkNABLkCDjdVIUtv+7U9MeMM+kbY5VaXRKbFDtJQKePZLakCkuyWtO ks6f61UyWSqdA5V4KpRs hzt0gseJ4mYFtjUFIwQrb3h1ZbFvq9K2wYYNLjGmOv8aL394+OVsXbaXAukShG51gAJA6z8E/fO2hDUG 3WFRq8qLXjG8BMaW5LGh X1cxs13FP9ZE8Kv4LqV12lIraa0fJExFMMvu7zyaXUnIfxuJCGmbMQ9si+HNVa80/WSBB51Xbuh0GOb6 upNilphEWnjkKSLvDRlZ Pwr852QULRRmzVd8cZnSHf+i12xiNPapckIbiFJabwcY4nqVZfrOkgjlwObUWifYeKai/VDio7fbnsc3 tZ0hEvKLUg0AxkkeUN6D 9t42qSHRGqr+uxH55clabW7mT/hLXrPxI+w5q3S4soXqjkUV6uKRLafML4qF3laET3lbQ8DzmADOJRSA gAoAKACgDg/EfiS+0a8S MLKRuukIPpEUUl5hVfGpsIKNtdvcQEZUP8M2CemBGj8bgrhX4gyfTuMfSrc1R/Ss6cnwreC5SeJekNrh iLBWfxxAr8go80we0GC7 purprzyT4k3xRBHwkSHqEGdP4qlhhmRmLL2z34+8eVq14cRj3lUqwx9PKykFQLFmSZX7/BWUINeva1YL F0jsTFe6wZisOVaHLTdv Rd7IZD7siKnfwoZFj903SyMELRf8wILl1DqzNaLbr8qwvoi8dxuAOacI5XMj2z92LGDVMRff4fPKrFDi xQAYxQAYoAMUAGKADFAB igAxQAYxQAUAFABQAUAFAHC+K/PB8bl2Om97ftXS0p2cVyfyvNKYW/F4KQtGnlgShLUoOPYSGG90glx7 4q4fIpFX4gXpUIehjDxx aDTiZHdXSEd2IKkkoMRcO6pXfxMnmUeiMXFemFDJXOUQJ2gFADPxZ0ziKy41QrdqNnOn3LeXcurpGuYq riXgookA5uMeomBYMGNf vXhBcTzckiYTNLLrjpp4dSZqXwFwdchrd7r2eFFXTmvzraz/U3riYT3uJJJEDD2UG5ufnXHeCSxIf3J5 pxP1s5bKS2pxFPGZBOCX b5YPIeYcLHxf2FcUojTbsfVpHAKGGJOQxVkSLQDLCKITBWPLNVJIZqG4t27/8HhD4baCINU1a3CorAJa wpRXjgzKiPlt0+1o4tvz D5hQA9/KYejsGMCP8nDKKRsrCZDCE6MCSqfOL4D6JQuAhJSQS6DHgb7h8h9KuIPVBsCb+lX3JtdaSAo5 ZWWw2NgV+XQCwtQ67s2I 6Ece8AcdWwMFfo+b/ELR9vqesrnrRaYrrFS99ZbJvyGowBENyipvt9YNlsCHEOBwh0jddCNLc70lL7QN VGAqjnOzTL9PRtECTtC8 LluBF5jcToKrekQW7osJESTjLEpQF+8QZYhWbiRQJE+RbDQ5OZGgnXbNEIFWVGVoPoVASSuZfK0lRGT1 aRVlnLnouPNzpT91VBeX p2U6jtCjg3AZDDiUAPqFAM/UWwADJ5AaKEzaHEIerjEe8l0wqHCPIU2AOamIUqhwCQUN6G2suGmgRES0 qZUQV5R+CdD6V4CiuIdn HLxX5IJ1mnGHomD8f1BzbjscWlYEOnsYuYMPTXDwlIP6Lzi864Sd3oodRw/YUmBcxQWHb8PMiWsSvf/m dCYhHTOBT5mjBWKxSRC2 3DdEtLgk8XanMrhfE9vYHIzxM0hQOmxpyi3V4sVNwcJGIcVsVftf7TLNF9KUJHM7YLEs9Iz4MZfZtWDs mZjvonhYjxKjcB2TDBai 0HhTQvm8+7OsRWipQhweLfHHyySAKYkjdl2bsyAaVpNm06QnH0sdgNK0QchTnrvVsnXOpQ57OsIMqln4 59zOExmrseeQomV8O2ob CmDL5XHKRPjKtfrYJ6GYDdZOB+is7CTkKsin4BUFhhtgGzVb76i3frEypCFqbnx8mpV4XNUDYicEgUqK AUAFABQAUAFAHK+ItI0W 5NRaOZFihSPHunTWsPllqz85KcM4kCcd+nWgCL/uJ2XoB5MVQO9xcqEURPaRn3AXZcRfhlgjbMDfxFNP LoIkU0S2prmWbZnV51Gd Tg6aOJdChhT98yGkC1CfNjVlbUUpz0D7/LurgtHvwOtImlZUZXkjnYILWi3DDGhmxyyGXJEp7OerNGqV ibcb1HOev6jFCbKs9nLz CsEgx8MVnFqGbFqJDikKnOzbgp2scJ2fJTypFYaRbrat7AKqGZPDk8YBDJHsFnqAxdOHEoDWXoRPmZWa HBoZOH9YHPuJJsQvhEnn Syi9BSrxirDif9NGXWcFdrZdrKf9v7TqKqMDRXW42gBVE2vGHLVAOtT76bEUH1H3syrrRZnXBj/dQMQW PsMmgCL+07TdInnwhrcZ kLtNcXwlw9oNWiiGEHZeLKZJ/tTMJ2L4NfRMVm7YeP2HbVErqqBeVv621f50cvjqCR2wOCLfsvh1SCt3 7ZAzQBZoAKACgAoAKACg FsO9rO7X4lG3E7xSe6ZtkwjQYklmfgQlZkZiZSuYyFkU2bmFBdu97f82WmPSluNViNwtwQCCw4Neii7P LvmU6piK2v6DEyf6ad1P xSS9ohEqWMkkkad4JS6FWrfD3WM8UED3MEIQsDjNvvhdzpvkO3FZO2pKKFfrhygnVBAV78EJVuwK0NVD H2NjZ3k1R01nAGB9l5xf IdINJ6Dmpx45MS7GJ1DMO4QA1RyFkfWH8lCABd+7Y0nWIZlVKAFkgJiFBWb+TYQCBULa0IDWvYp2Fx0d seTNBnw40bk6ayyEg22c Sy37VbuDDXssnQIV9Yh7rIUpeIcVkkmXAQVGruvxFhUVEE/eurPRzwyMs4XsFXiXr6rw/AHQ+7bu/2c5 9qALhuYg/kz1JxNbN4Hv imdjbybwgevxOtQ9CRO9UlxQ+0/qLZHYvTJ55JPM/ALu/xb6e4Kj+7MKkfCGS2wDYxUlH441IdM5jGq1 J7NV+r5hApihCdWg1hlW hqAbDtQ3bXFvbyD9UnRS3NYyeuI8g53kVned9xiNSRvnkicLEDbJYol7xmjwyHp2OZ8CbYddBipf77BH DTJEZFSaRbhwH/wBPjlm UNebzZmXnleRZucQqWMhVXsG9M0kpEuJkxIlIFj9GqH89rtutppSfG0kY2SR7tnh+EoN9PL0I9TR5hSg PiuFmnvLS+91Wh8JUrLU +9lcIh36RjgMNXdmxczsfL9VWiavI/MSj0avCvgasRYGaqIFLVrS5NnJvvR3wOCL7XRc1karbmpLPI4D 5Ng50b61QCUYhRbrwQSd xYAmB7v/Me+KqLn6jUBO4nigyMgeq4gzAO2+ASgGqRYINEjt4WnkLQiEuvwOflc+NbQF87vfh3bO8wRL rhC0ND8ygIYhTq/2i1il XcWak6XNejiRE5nIZNrurIgGCOXa3Af7lzYOzuoDvCMeiYEIOrkX0zhBvubGZuLiwdcxGTvH2WwC1OP3 NuL/J5lgGPmpDsgf7jRK 6vYH8ZQM1de75htYxWclCKT8F7G8LCk3FmrsJKUI2CXblhDEICvxSDMY3xzC0QuIF8srDol8sG1KZTW9 DLCm4Y7pxRl8CfLjsJZ8 TXpvRw2qutjocL7UEzIiE9UPO5pjVognhG21N7BGBTjmD4TARCFPuFkjP7sziMs6RZGznpevKVJbm+Ye Q35vT1F1FAUFXSPGACZP YTcpvTOvuxHe5UTVyRmS4jl/MRWds1q7fuGPyrMKUVugUWFidhcOMYCmyu1R7J5ijk40Bzw6A6dgSTKP 2qEOADG5KkiOCuF0j0pk cL0OJOoWvM+huLVq3g5xR1eQhGTsnUa7LxVzkh91A1MbmEEDkNNMFHZALYec9VmLOKHq/VwQR4eHzJSc QqLGUNhcgtILrYQRFuJA zQbjwNH9wpMkY3tBimS6SS/7F2ZPOjqUTmUZ337zuKUXwHNba79QzSM1r6MZdC4xvW0tteWlVYCOMIOw JuhYFeXEGGJPN5aagDG1 Za9KaXhuQWab4s5S74xh8wajVyJZl16xxWmCf9xcdPX8bL2JBSOBlXFuBmwcH5QJuE2nr+UaBbJFFP1w vVjcPn0Lgkd3lxRqcVpS MowcDgNxgigDz+33Xv2fhDGAec2zHLghswC+Fi6AZbjViDItylAZYWwtGE18tQzcOamNTs3bsCpMyCyG BoR8uqfrVfwaoxEsxNj0 9TnKI8x/pSejgdC6Mrr7DmjxAi4xnTayEjYdI8CsPnA5QkbdMHu/SwAQ3c2eXabOSCqCqXEup1l8J9EK eAon3yWq5Ss5rWm/tMVu 7knzs47hxEqFnAbsLVQ0SJNPvXSmTqPp16v0GXAdNSG1B34d6T3LfqwVeCMXkO/3BuaIW2eOAYDjLjJ2 7OKACgAoAKACgAoAKAPP /KBk9sipOgxxsXZ1r84r1mLS/AKDMVeU8/oJrNTQKIS8lJJqPv3Q9pXPwLNFgM6YAAMN06B8tTnQs9+d 2AHk6NgD8uVSYeFmhbgU bQ+Q31DbA1FbKxXJOWREWFLPoID9+2lLBSYAD5w3XFG7HeFIOSkrT3upJMSqy02Gx41QNhN3rOmVV2Fe iUV6qWr3+w47Daad081W /JM6JYVC7wjsx1PgUaIgyS0PjRLxUd36eUMqVRXr4Xe7MaZNi1hz2yRulEvntetHBQeYIHSIRYv+0gMJ SgZQu/mijqH1uA85mTYm 2D4TwpdNksQqfQ8LXhdScJIAW1evxdYR4pI9YXGVraLwLhRpXcnUu1jrglvmmGfPBNlQmOUhV6EPDdyi CVEeV2pSgvzWB3Kg5iHd ciX9LZY4SP6IDJ0qhDgvJMyi17EXzrjh9S7NaSL9oa8j5Ki0rHkipNq2luoDoQLQbKA2GRjGDzTCaJ3n xGrHHA5ijBUSQNSZWs80 Mj90gIbl7bbVROtCW1nXmNT5DB5wQPWTAIE+0P8kYMiROxxpAvgRI46qzQN8NTAFpPJQgtXtCTv/rDEN rgNnIHuaAOPXwdqxtArQ M7NnTI9e5b/jy+ynHy/AhF4NVFg36y1uqdrBB2XdvbWP4DrwodVwtsnXcWOFVZphfVapzSVWgjouhSKl TQ4FoV9l2KRve7lGyi3Y eAYDLETHQEEqY2HOSalqvg7iOP2vjtfSCWnpL7sBbjqjdS463TiOh7DzuY0WOhiANehVYFdBn96SQQ9r yH87VUYcQ4dh0kPmq5I0 nnVIPAZKWRQ9j6CCTnph41wbJgt0+n9NpHVWNzxN8JY5WeLOY1LFjnkhPf+WW+XB+7yQTigCyPHdiUBE f81xOJjZlA/gA3hqghYj n/UE0aklaNKWNdRfFIaj2mOnePUuOgU01nNI5KuYOUNkyqyqVRHXNzTMsHWQX31mk6jGOSiVf7ZGZCED xLxaOXsgFKEDhGcem9yJ YNf1T8foWAihGNic4vT0GnM9eLb9gVc8cOHdryyGSwIV1qlpYmD4n0ob1B5WTfXgyl6da2POEHYUQUwM Zmm2KfCrLnisaRGU6lYd LhxytkKJd9fQEvwFuMzP3FFZHf90lQ4FV5kf3IjjC5NWmqRs8z0dwdspZ5Gbwbfq9ZhXoFtSlviaI8qI lHBTlPlMdnBXk3cGs5F9 aprlvLNdLHb+UyBcOQHLx+JTVKlK4jWxasmGoxwPuvWx3Rd6gW2v4elD64iJlMAkro87qdgbSOXgmiKh ZlBIXcgVs5+VqAHjxldi MFzo6dGSqDOHdBNVzGLv6rWJpzFIeQXZjUSI8UJrMxSmtqs9yjhau4P6WhoVRNoKHBbLbDJanUirO+YR 5KNufA7JoMgFXCJSEXHE NCFxN2l68+2h9xI7Qhlp2iyG1XsLBeYu44ptdCaNjzP39Ef9GTK8wh8I08zaf1BSp4mI5PCHW3AVyWIZ M7lZI+mQRkhgGGKAFg+I ijBQA3nctR1zqeFFUXvMlxMf3XSUD4ikCRcmJKQqjIFY6On/Xb7uiTNChaIkUigPgdS6lBzTVfG9j4Tf Ac8/jqUSSCm9ccoFmO8O QhoDFQgzPstrZOZFsWa9KERkwMKjZCQZYrxQVTLtneCnYwhbGUyjiET7GQZIanWFOGIDCGNUtkaKDM63 8WY08Piz4o0kP4GOUiAj mslprNSOZqiaf3tpbk1yQ0P81N2aMXdIM3xxd5m7cWN0TsLHN6GGijaO/9nV544N9VuFrSsARu/CUX8v 6ZK8A3gr3O5edSlRCWV1 jNOhHWNKySSM5Bpb6nUZLCUq+K9jWUjm7Y4Bi3w/pEWzAfFkZHgkQoF8jYhCwXEq5BWOZM38bm1qqUsN w6cjk09pZpLg1AnegMwx A0bmdHgQuXUBKsjhSZm6O5gG7bPKQdIW2eLHLIaOHxSPxHVZQNGhUDdBF9WLTQ9odFWIV29mg5z3ugQm UupeGGLVx3vqY0YADX74 1REjE/gKKwFekEYEB3s5Oo0qb3vTqXNk9w+yoabizZJKMDKKlC2jZ9aBEjGJSKFbPnQN5D3Img18wZUK cXlxecjJIWIQvsQSAoql 3X95+6Zwg+VyGxkA6+zYaXFLRsSyL0CoTd03baxs8IxvwKuZ89HR6VVofJBsXwx6mvAnQBqGBaiDP/wC E+eGMdQFJkdGigYtWD1H 7G8cTQySAoOEXTwCdiKAi3eJqf6b6AaoFMuz5GzHIPkZQaUX3vSWhV1yQOIIO25TW5XLSO2+Bbyf2VDc Gcw+TcSTkRsZbdreWKOQ BedzVzuZiBouajcTLkO3x/HOeCnj8prhZJeCqNZaEWxiRlELn/aDW1ptIZRKak7DwQh8UbG4wek9o+dE 6d5yF9kyycPVKodpZ+4I zBiiNAnRNAA4xA96/XNXIPcjcFhwYa9oYfxLvjhtYG/EMf4gRfl5pUEftlQHLr5v2j6WC3sL4u9g60E4 nutsLymZRGAIwyeXg+bK olAMnPluU4wNGJjBUYev2V9cWb7uY94hZf1yruOpU5yxIHLrx/gMz0I8LMVLUEHrYC69GlEp7J3qzdYc bJlQQiQKjmSNJEPmMOFw 41YLO0qKMwCOYVnaexjGc/X5blIVkVLLlOsEdiWEZdGu/AHe+R73CAx9RRQBXymVZGEwlMYd5RyTeF3f Sb2cpU9BST+zYJecOixo afzbDdARqFvlWVvtGCe7q2wVeG2wXUTWnzEw1V1wgVhUWi5+VcaLcKpaIX9dnUDzIjW4XuqDxRPzG7s3 blpOXdB3heWsJDdXcRZJ DGw2ScyZRyfmeNQyqhXfEkTW5DRbuFovsjZVBo0nUatkGj4FIOqBHg1w1I+VaDKjzJGZ8GvKDHKfhegs business practices supervisor/h7zFGvhMLsmIChTa v04S0cTT5qtoASTTSfPwpPVPzKCZfiMqcK63YKfFwA+KXOQ3LkcjYOhw7xWj4/HRiS4LoiJMTLfRq+2V wAE17aUkrFYEAFCFbEjB c/e2aLoOm1seAsQDcBoznEHvFVnrMGwd809OMcTZW83924EBJsycVU8Yip9iKWYLYB6ZwNSysGpOJsWS bpgzFL0T8lethnVtw1Xg XZvFPaqy/R4DQapuf9c00bib/WBWJpJemF5pBHRbeJEQCqQGCc9HGVqvacqCOISb2SmNAxrRItLTmzKI PCbN6fHYYURNAE5LpFUm gUOTtLH6Qqzm6x5M3nfGHLJLkHyxlBidHnltZQXhZ1+qtitD7WIc1sqXHqxTSP34rt4bzWVEO8TEJipM QEABf6GXTyZRoXKnzFTX nuMLuu69Adi0LURyXwdRehDGR9TVWAD796dN3ySzDyCJ6YWQDztlDajIGuXqOR+fxBdL05IbwySlm82T Gfh6yeX3LvIyVE1MYBBp o99KIJTMfKg0NpmfViS99AlBnagXR8WHMCK4rPLrfEKSYw2oLPK+UyRrpMGWE7XGtkUwGSLHA4elkY+b Bl2kYZVu1AEO7srKUjRa ZHASWLRagXIgKsRMASGwLB9DwVx0EQ3AKSNQMSv6DWUEKRWJQEXEYz8tVDbkcvqDVM9xIcUWJsEI6QHW qMKRfw2rGmRDh/Bem28a pLtvFEEoZcr8HutJq+yGRhuwKBnbcLQbYMsDxHtLGaVgSw5M3cCt5ed6zNuuRjeSOKVsIlSMjIXz23HF s2TlJUNSnZCY1HZ+b/wA +rrDxgQSMYB7Bp9bSSALZLGc5q1As8uU+4RSQmMvcFvK+cpobdjXp9F6VZDP4Gmm5ZAJv29Y0YM1veUy AwndlZCQ/53j55xs13CA FdGY1ZGAoiMWHQ1bBNrZWe50lrovOSfxB2zwegYdlWFacYkgZ+DNvfQSCX0XkkXvCJhJmAhgy0N3NJMT Wrgn9MVkoHBfkVNHSDBK Nip8dpgXcN2S1druzUl07WrLTfGWY6v+aSVwGd/rmd01vXXn4/h+3n22xWJgcnrZlZkphIVaB4H7bDzU hmrodDJmXFbL0KZRJ4Ac Db84V7dUqONEev02jYGDHCjzojjbARR3V5thUUqrNY5o8L6QQegh+r4Lx0GX9ZqkLUvOOsdRUYGCOtUF YMKjCrRulyGRY5jDARdf DlcUEfmH64RMY8bJdMzoVSEOSuuzTMKQ9TefzPVEAMFEmLOBuNTJhJWwKFJwUfAxFF3zG6GRDj3BGpDw QpJvyeX0JTFA5hQYIToP o97ZwGJVWZBBOaNUYGQBJAFWCBN4i1ErnA2gfANBGCXCP1ZVW6ow3NEAbDKvpfCLGJ4D1hTMtN7vzeUm 0vetBYyqHei6lNNKmhAE 7iiMKQVEYLvELfftXc9pLYsrlGDZ4ErwpAr/IAF0JC58GEyU7AYaBNrm9EoUhkdGEGULUivLICCBBAc0 udLpHwgdRKHwYLSNJ5VV Tt1P8YMOR0vm5kNcaUh7MsNR33wizlXmBTJ2aNhRMDaPXVwdoyhVyp9w+cJ6KLWGxjhkNu9CYJuVWdNB YCk2mSRUmTZus6Cjx12o bBZWUzhWwzl/SCmZXwImaDgVBjscuVL3HsGgHt6pxc27qWawsWTLIafCXE73gjrRk4NNPhEPZm2Fvbm8 VD4dKOnYAt6e6hpyqdSM 5Bz8DufmhwM7w7bd2GPYEaPPBCBGOhqpyY4dhCAsHX/3v6DjE9ciYokHnQhPWj7txSJHGwqwXGXbG3K3 366lyz4LErBKRtyvQxbw iPi5tcJ0IhowUXIzifAZyCgeHM3H8SF4mGJsppfwEIOImWbcenKNLEKjcnNDOPiQNSSV4GNk0bx+klzF HQTXzOT7CJHgOybaHeHI FNDA6nE7QFegcNUUa2ZxmfCjRkMvpTXils+7b02ud5TOTwH63XV+SSsuoiG5w5CHdKPXq8g9dlOiCYOu GLQP8qHNM9OU+Ud5YIPg HKlCuKgtkmBsiKAhrmz7xg1HcIIxlFVgRayYB7AEbwGKIyUqWNvNDl0usoK807YFWokPLNmdkcOMgIiJ Ju32o5Qs2kr1rgo4mtsn q1AWfkvOLEEBzQzrzkf85hI5ccsQ1n1EEuvU+cDTKfgcIdN0eUY/VtjGfbgUGjRhJrYy7KRDtfLcGqag ACj7IIUZkrUfwBSZFoT0 zJVzwlAGLZ+HbmbTJtN+kbtDzjNoErv9wZzhB5en1jJuN9qZIGHh/xM4GctYQF5fdesR7m4apU26oDgj FHb7/GU5qenITiuU+i5Q Rqx/rzJ0VHYUUKzfHbxQaGg4whzH19qoqb47nhYTGaSqHxFT7Q6eMqZciNo3/XADnTPAhld6Hq4Iah2U oEmdFxSorz1IKnknrUZR 8Gf04Fl9nhcoLAd0STSZPuaPbpyfqwRfK5377nsUxE5OgXPE3XV997dcmH0v0uQMZBNcfQ8EWCxJROtK 5wd4BoDDnDokiHetUjCY oyfao2NwQcWZKfxpYDJJdCNYEiVioBttarWvvL58UziuwZ0jyTYWCk9RA4qm7x8hAHNRd/iAF8rMgHYN TwN1iiYASVbCgGAPKfQt QFFWuCi8sU3uh1jZyZ3xd70ipPWmnHHVdwsjHXfWg1zrull1FWQnNFFXpJHWQSNpMFMthsF5yP2Cg3xU 9NXN7qmM2vVZQbzAHqVH AHWWov/6MrF82cRr8FBmOHRC6X4fiMkFx0d+A0vMNt3c5UKNWkUSloz09IeegAzph6d0TiMJRDYIXC5g T2SEU2F0SpxGuwhofFX7 zw/ptrqv8QhwBNykq5ydXGNVa4KAk2dpwZVo98FNlgaCnldrjSXQOV1qaMwl2/TLBW+uJ2ydAMESUlZQ yqoVm+IMOgn4cwHOjXAi m5K1kRf8kxsudglZ65+QuBR4tcQxylnWIuqGxHEY+FakZxCq8mdeWHQCf2lu7zY2nZKTPEwYkML2bfCI wj8DuYckvs3yfGRzkhwU 2+YVGRMTVP0H8++2AF8khT8oqa5gGzXE2VBaLMEmTynU3/wOfd0Wcq59zzrTGCJlYJkWvsxL32ftN0j8 2ocfkoiYZKJLO4h/CFhK GG8YTrKzClXOVt8JcWMSti67+3P7RV2v3wwVmtVm6pauFr5vawXwunYO1LYtRlWBgQ3xZPZaSsEIFQpQ bBVNWrXiR14y5iJ+t6el ylElDjk5ShaVamDUeRoSV6jcneet4GwA8Cz7m5Be6Tz36eg0qY4v0kcLCekqwMuPU5zYFThwmUoJJJPm mSd0BUQ5Odx3Zg0r8CXS PYoVMRh+cwXwFL22G6onGhLH0ZISE3f6HTJ3nBs3Di0N67I6QfinqQsuhKrc2K2Z61qtRyCrUgm6tvNr 5YZS1rzzGQsnTAljH5th CAZuZFewJxS9JCsy6O50tqwe+R29fe2VL3krXJQ2m6Nf199pJ0vL79bHdzCBWTDjIbNNZGa54dsFDPW5 kUikvAuHmac5UtMbec77 EvYmD3AXcWAsCG+0ylxyKaOMkxJRZ3RmhvIKWyZGDy1x7nHtzQ5/lrY7SoeVS1l8AlimvPRH7KCQNXow Ount9VBmjWb4Hozb7svL MPhwuTbEgvh01QfJLVCQzmdPPppoV8flE+84514OOIaqk8U3KQfMusKR0xaPkCQgscnl99MGGGXgaWOA 43RMaWVTIDmCHvoMO17N mhsJreASRiOzMcEq+JIZsqTYS3ARZAdwTVvsjAhXZJOhqV4As1mQ5Te4tqluxsKBqVJXb9j6eG2Lfrtw /WgDZoAKACgAoAKADFAB ptHXkQICqU3bOTuTExQuNa/xaVDMSY4dFOYSSEaD9GPGGXHDPYPAXHBGAYBTLDIGSKWpoI3URRNVeUFK NFGHW1gXHDO9OONRzKjD RKGQOSxTALAYF8oMUKDkKaFCSMvWhTYBWoMlIICYqREhIzKulkLKqIUyQbMIncB3rYKuFjMNYNQQDHFH AFABQAUAFABmgAyB+FAC PmeFFZwZ4bAY4zUY7ZWTVZCCibHGOTQunMvMZHXP1xWLXZrIiZQCOrDvNXTPdPQSzUPndCziqQyZFQNV BQAZoAKAEBHQdqAFoAKA YsDjKQRTkViKEALkIeAO2jXR3PXuYTlOy6uZVnGzWhYPXGLbX94+jLN2MBoEViAeZDSCvNxZXISG/GWi 2B1x0q3stncC+i5pOZC2 GMRQuZVOsnrQJz56n16vSJQRkDY6nY7h3z9s2X5vtAVKtxmSn++o5oLsCHiAhNYRclTmnsSuDQEJNCGE USOAxmdD3OPDLSpFQ1p5 DDOtOuZK4Kgxy6wQ0Ggt52YILe3VnUxaWU2vXEFUBjtqb10klGvmVlPv2H7AIaVwRauszmaRoR48hXJz 3wjdx741dLDCQqceCumZ TpbK++3GpDnQRx4IeDfC75v+t4dg/j6FIMNTHAmtbRHxHPNKxH5LmEpabhP9lb6d2DWreyoeY6czame+ fgXc6L7BOrYenIa0BZfu C0jnPQc4Cjzu00v0FpGSScju/IbnHbWzhrzeGqEh5KNOeYHoNP1XKVuwbjPEuZjdcG4+Yny1B332QG/S pReFZId4T4OrTL4lPCgr xaJimZETIW9vUbtIWAWxVzpDype+go4ZwT4qEWuWVJJuOYjxnzpHYTf7pf92KUKyXEqDQ0qAjjGW0hkb rTBs6DEmmh2sErkUfdhX ccDjdEwMSr9UuzooBny7AyyJWpeBwmJsneAcGDOXFlCIi6b5J2Z1QmgAtfmSVRCqxPUnHVIsGcu73vSQ 62DQA9z6akHY9bPuwrZu T6zhTQxSV9FZTGJjoiCgkXrBY39p1qm27TKgz/xXClmEgQWdHHSHSCNdP1bMWIeR9RAPEdIFFm7Fox3N FABQAUAFABQAUAeMfFbT 50Hn5Jfe2zd4Hw5y39buM4YNxcTYydmV0nxRtChc9ojuWZJYRfj2Ao6eQ9cpmM3P5ZymiulWGG8e7ec+ tpcw7V20I6OApxZppoAN mfzgGdRmrDw8QAbvku1limWJdv4BCIvP7KW7xO6GG1Jmhq1ZLM5PRTRyXgzSQBlI2Ypfou8+rLNqlnfa rpv8AZ/o33bihxiP/AJh Md9gqNsUaGzmziTXqIHgGJTUauyKScYVmJPoChFB8ZitbvqVoPzd4wurj9R/8ILErL1aHiSzZDObSgfx 0gUxUeyxUN2lNxdQ67Rl 3k5pmyA0W31XMA9dfq7+JcYRFVMNlWgTu2KqyWEWC56PCEqL1eAiXSy4I69k0j3Hp2q1JYBTgH52HFXD A9JJWHclweKGv5jXWWwL dMnXfmrti9GqTweBwnR+CPXaGY8LGdxbvmO0Xs0M6kt7oYMSEA9uda23E5n6l4uyUcpPlJ1AdLKNiOcb B+6jSWkBgLQvyT7GZV4o 9TGmw6QELmSX8z9/sBkksJPzM1HnTdwkS7lONaZJOWNfKmXVAxHG4ybogPSvbwXvjOJuhGGsyWQJgdPW fxtXO1HEWBFAAyym5SO9 XGQEjHMAEnCpJEGKfKhFLjML814DWUhQeGXT7jmq9mtdepvhvj5sF8e4mhXwmPtiBBis4NJ7kwhtCXWP czo/xiM93Tke+2wwTC7+ 0HjCwVvtPgPGKHnTS91wDRWaqhhXkRpUNu0QfH18PuREkcepoqa02XeqL6WKAHKBBgw8x7k/IkgP04OQ FdgOG2Zjs1CUVZUb/FbQ xP5Y5eYYNszKVoITdFaQjAR218DaeaYZNGF2B2Ow9gTxV2JYQOZnsRrWPbUUCoZIv+nLDbbEMcdusMck 2vyDFQIUbTLoWraXpZ88 mF2k14fzBfIQ43fuq9ci3VGeTZEXKVm4ZsVqR0yP/RIjt1IQcJfF+RHjZ8WPTMYiQEhp7Hi+dgZ3gqij PPwiqT1zUfctZSHYSYIr aTFebhKRrMdGl70oVShhE6I7cxUb7XcGeUqlVitibqY/WV8ZG8nb4hEUTUaY5sHPQjeo1NBicOEuRbVb +R1bOZJ9oHN8vQKk8nOQ YEMyjRue0eOVBBkVDWxhiOYbXcBj4QxlYrdSfv1dG3f2ak1iZulJRoDi7UXBS1RI9qFCKZhoJZMEIGFV 24WRq0oISp94LvuwFnUz Jga7yK47haSWFCcPXkYRgts819CeVDFTHYNVOIBJgth4joUJ9KGHYVQALQbbFj9yiAorY1HbFYK4rCcI HHFgPrBWZC3gvQGF5nSb yo/VvDubmdMeUPO1yKOO2ESy8RNNEPPanN5ChAX/GLBVdavHuHplmtKcBu3BiflO8hnXsE6VKiF50XHq VH8mBWW7iE2FcKQ5UHHw jVCZU1sFXDAZ28ViTjv1LkbHVfx2wU+xsNh+9GO5pdEFyoyRgZqKhAzEkZ6FccOgEB2auJodRCyN99Bj oeaVtDYVimtSuDht1ldo MOBaITiGEPqDWKnIGIoHUFZUTTRZIW4GXLZGFZKGGKHVYEapm9xtIMh2dQhXC9A3iFmOxsT5WJBfGvTU LNlsiFDuKjPpQBeuvEdl ztzO3eKv6r7qxbcvMqVuLYGMF/MTwKAKEfjfSGSSR5/JEEzQPvRx+6VH90oeu4Ro4TUu1AXjVae0GG9Y 1+PSja/h0V0ip8pWlgWc PXKKRSpBcKUL5IbjFY5HpkIKkpTjdZnhePENRHc0BX7xq2AbZqOdSEDfyPjhaKHyKU1oyXrpBkl+IbX7 ZCkkKeZLGFlG1/wB25Tc Y3bKpyVtZQI6HUDE9csUcbfRuNRPwZFBNJDMVEgLbARGAaPkNWBHiBnZ7IpA3kAm5VJS4Qyb6L7vH3wx 9x04oGhpdKB86wCAIgbj hCWERAhEx7hGTICaTvJAjI0APvO+u3shgWCkBjeUU7jQp5mqilEkjd05krK9olh8O+M5kKgKkXF39CLD 6reCOxcfUkREj9vkIt5Y p/pViY7CNyAHKeMOuvzk+84aYE3whSsgNg2UGV477wjIdpCeJEehEdimzEHPsxZNnGIRKHrv1CPhKCVt croPZOq6HitnuWBhL9qy VNDhgGaG4KgzCTVI9dgGRN7AxbcyFOwNhrsfhyTJVnHEoiyrAvbpiNsUKpHTKbIAGqwEcUWKzJNeOJFU UAFABQByHiDwiniCTMtx ASVwQNOUU9N4C6Rzt1D8Lg8OvfAgMvhNQQMeH+QPQcTe3E1xfBpLWxERNwJb34TodZcLmwWfrbQPlYAh ZU04cSl3mxZVeToAu9R5 VhzjFbcVQMML06GkFsiLRcRLTXLK9vSV33wijIRTPZfO14RKifIpBx8hoSS49Fmg/AMK/tQW/fzhUDfZ ANg+pdg2tfJwf+c+cqke ZuxGPL+6TQB0+r4TptuZGYqRmHYPyYXsiabyxx5eKRwjqVriOGXRvIAdAJxOKgXLAJRLsPLQbZJ5PBRq BRQAUAFABQAUAFAHJ+MICHAEL Cy+ZvlhaZBFaqZZvQIE7bLTfmqJC0gJtwYr9VeGCzTRLXp/w/rgzKStnaTYU39l/r8VfjHR2JPuR9VB9 y8rpRmrumSD69fRa4jfV AS8hdht5D1ZnjVLRYhSFjrGZRQanw5hxOvVD990mjAiu59hlQZl4klFZkQs7zPiUzGBQ9U8M70BxW05H zSK9Ctd2wBjV7jlBAc0a gGipnzjbhcqEIiNnTkHRBVBo4Weoz/vGXoxKfOusMmWSvnsrXsoAmEyI7QHt83zzAmMLQROX6cxUektS nHTJyPO3VCUATdSnGIEM pBzSTQDnBaK6pnK7c/uQBuWGY1HDHLI1BmbtraLWnRgkA7Kv3/usUH6OREp1NI40ILKwj5FmarDrwSJY H2mlueqkIfzUjZX1YFBy w4MxCsX4HU22tNT6dhlCO9v0O9BVOsaPFlbKzpehZvxUIaYs6cKISm7ZwPu+q6yGtMGllqyHbuDVlpQv v5zcjCmYqRjPM3ohiRxC AIF0Eb4jOMrML5hxDQgP+8veQHLdXMTw0iHZsOcBfMl9B4GPYQkoJoX8NJq0vv0sVYh1d4lKV9xHKhG6 XJJYODHD9Y3rcgbI4rrT XAENHVRKjAUL4XDGJCRNABFYAH0A3p/tW31WS/wBO+0VvPyiwiwReHbz2WG7c/h+9kKQifhxlPOG6sYR GZp+rlEhYrDNG2yGwGWV RL0U4a17yJ5INtxWo291z5pCPTHqNtWtkvwu2yfd0zK6qRzZx8UfE3Wk21TpBv6wtFAfcPqdoCDQcD7z BPJy6N5lcN2nS1rbYADj ghA66LQUPSTQ4DnSIv4rTjynQGiXYc40ZM7Oxh/jZJL7juxQBk4CQNIrd9DuDCkGSq6hkm75goVqXV1M BIAKPjD+4FN99u6cDpHO BQYxl4mUpNeBI+/tQP+O6AcFJFNZmSPA5fEGZPq+L04ve4mTSQXuEiPV3xrvxlaTh8PRjpcXmHD+CQAo aLwDHPvJ5dtXldR+zbIl hgyZ6yHbouW+texTKoFt4wE6eJ1hxKgfJItrUJpLlb41q+t5AnzlEAFhBUsbhXklGNJCB6mvjlObvS4Q yRYQLGfPbmhqbS2cL3mg yItI+YihB1hwAxWjKa4n+ljjkMn5fiAn2xJ61W2R7vBdc3rjWl7ETf0qe0kOTfskYzm67XFG0cgSMcsj QrAAgtkKQDKn+9Vbmf7a ltHf7owrSlAWdT34nK6OwhtFNyZjSomORfhlp00zWoTApab/u6DB65UhZXrr5FKL2dp3qAFZI7Ml2e6V sG4j4j5blnJMZIEKf757 aHZMH84MpL8sbTUSmFexWSlk9KJ1LNX6ZaHz+efDZusTPp2LvKcCYwEzJPIIjUjJpPYgakG7LGlFob2W 72oebtuNp3oP7GhoEV4p rFZ8oegDegL73I1BtsGlRaYxjRlBWO1JzjntxTrZOy6fQ/cM7ApQLnEYxlwB3SorS0g+ZmGyneIWezLT 9VdTMRvDavuPeYuoJaz1 unBNPxoyUY2Sctq8VBBFe0DE6FyTcu2KjYNFI5FAvuZHQsH8g+EchS2yYNU+1R94N997aCVHOa99gMoF IBIKRgg1YvJHI9w+0GEc /CSHeONqZ4zXPwuEQ7aNUmfW2qXzLBvFZ5pYnwj6wn1HIjdEksZ6QkQ1hWsjiZ2qvYmWOcLqqFOXcBmC SITVJfDJGrVCvN8GQb5F 4lvWt3KXoZVf1BD8mi8GvyyqIuZVscXYmDeeUUFEmGwXfBf50BEpVzUnHQzcAUvlGOHwCsCbKRTbU7g0 beBOpvLwpiSv7YZYLAyd u54i+59TBaZpCFhJglOfsKr3BzqRiqGUWpaMf3NPzOrYnF+aZnlTQp51ODMavrIZf3H2FUeMLc82UFS5 FtPxV6bcbyPuOJn1YBkz NjUv+58/LjPAoA9/jOj8jYfHpCOg7KJ55SmJLzMpgrEMF7QPcKp2HCDSHHNGJIZDFXXWAFv4hQTNifyu YnBdVncXysgxOAf2Q9bf IESbdq51OooMV7KCRMAn8j0KQ/cVsW2t6r6PyQA6MFNCgMShKV2hlNs9j1I6LsX4brKxjTCTeUdIDgog e13vSzRWDl+zxyRtJczL Ah9uoklevCNkWqwKSPSJz4ch13GxBeuc1C7+NNAUWEVWyhsrzwrncDjZ3a6V4BCUYDYKNWJ7u1p96NVH sicjW8OkHYP/lvbyRtOr bHC4+SeXV6WiG9nZk6AD1bWRsic90YzAgXM35dmKYtezTKfDrd1mUQaorg0OgO60cdB2lqzoXl8Sdx50 wLtJbHh9VtQQdaiayptQ 7GOrT4r7KL2o2CYtEuaTGg2vzcHAWoPca48LrbeDf6mkSLgh100QCCM1+SRC/+jRwPLzMJAs/nHgeoBm o9/PKFlfrTcqyaLt9Gt3 8gqA3vrVPlnbC/Zkk+PPTgnZ6BibbnSI0c4qbvF8Nv9NafJDritpZbJkzYgd8TH/PV/mrBMPFkS2c5Zi QqdM9atUeIJNZhIjUNLH C0EeCfq7nZh2reBhjJfWfZcCUVvJBlxmuytXENZ4nv+YBKlJfffChhlKJeGuF8Ka13MSl+GgiLgsYy2V aQ25piLOSQe1i4bO61SV zbNbzF0/jLaLmnSxwTz3ONKYQCNLmrRT971L1cyTbrsbQxPFWIchhf5xjUeKZ9/MnluDkejdhmgB//CT aUITc/a4PJV/LL+Yu3fg xHux3nOHpE2KYbWNOY3lFiZZZi1RdoDKYKOCb2TgATlxDWTRHF8lLpd9j9fDCEIyYZ4+hHwxL7z9LzTr YZ3UxWeSBk05If2qhWfn 48mqd4ijXTOSGgqsz8r84OWtZ+y1DACFUchxBHvs4UE9zwORZ3PRXWqzg5USBBabMgOR6cHupGFOgLpW MsMccBOlXLr6mAV3SzAm ZbfphVwPJlj1oa8dnbwPNUbsrpXnRc4YOYlUWDb4nyegw7zh73Ei4XglvUOXZOCfsqu76rBS8PagU+XH WrKu0X8xx5wNoKbo3cRx lSZQrKGXep+BuOP8ug70WVmo6qDvhBhyn75VPT+6fUDISLEbdLM7TleRaBUZaPIDfzkhhTjCw4LcHYDj 6GXgQLioL3aV1maHy7P4 X2BakFj2om4hDhyDxfBr1UEIBtOv+GnMGXMymQmGePAQ9zyPWCQPCGGqsGU0T+DC3G6UZSRN9amVKZPd DiQTHVy8soMyc0NawCb0 RshURefPAwiEINSSHzpDhesusaDBti0GUNO9etJCCWJHiK1gCo9MIDqrM8a0uRtbAtUOV3E40kLIxI4k eL3tz6aHUenxiLaB5IoN TkjryDYtxyTMFrpFBawuFcUVptHlFK0GkUUD6DdMFJxFP0tQVrIq4Kuv3ZJY+Qi8uu4f+1glTM1sfaHE Cq6Spg17sZOh/iIIGcUA COEvMayCkQAa3Q7Y/lsH1qvDA/hopdaNegeZAQaviaVCy3cuKyNVpLlpTcgEjLbXpF3Ymmov6lfI8TKg 3c+PXztMvGTuz662/k5V kSZhpMMSfhrfjJmbGE5DiIwmGc0SmcbA4eq9odKfnRakzaE9Z3x0OZTiueKUEpOQPakeOMKXm60MBcvL RagBJJHcSCKNFChzISwK vbJLCvaCKXsDBJHeBUYUW2a9spA3sPetW8ULqtromYh5FwSEdZxsByARgHyDyt4IACYXvyKsUiNbDkO4 0urw1puvUEkBQ+93FQGj feU3OlnhvCBq3eeCnu0moDlGPvuuASqahJcfFMFHNhScqudDR7w8wY9JtUKeANaGcJ7OIZutk3eJ78j4 uJBe6YOf3YcALHNdZoSK clyEuWaIBqBULEKlsLvt47g3c9mZQJSg3abPgs3RKINM5TNWGDh+X7wsNQXJZILHNHXTIIVYETTPYMOt 88sQQaAG2hcb5+1yCJDA WvTZ4PRakJMpXSReAsiphWT+QdM8PUOqkaqObADW3VNJXl+OvtiC9uvNJFXJC26LnLdXBzgLMwoWi5d1 DfVG5uJ8IhP11VK1rRwj 3o2w9msRi4KpzqWuEHKApTrgOrilBkjEM4MJ0ZOKlJOEq4c9eKFl4Dtk4GZw8w4Isr3BEzLryrGg9wcP PFAEi6/q0qQq5PEC4SYK BrTcW7sZl/e+X/j043IUZzEEvulI2RWViSMC16sCFiUUZnYRD+5JQZH2NGgglAJwbcHHcweRf2frxtT9 dUW6yYq4wATU7CKmFGGa VefZOYOfiGMPOy96MwcVWKEYh75JfS0O8/i7pUtcEBVnnwmmHMH58oEF6ucUZZHh257nemHTUumIaQLf silhGegrWp911XPPPALF QWCyLqY3LL2sAGnW+sleIPSEqT3yRU0zf034vvpcv1d5jtEpAVg8RbR73N+erVnvwJ2Mx+t69GwAD2wy +djFuqSkRpo4CoiAUcj4 FmNWYaYA5xnZYKq+WyxbhctBIsUyW+PIrxjSOyhaXpgAZAnUHTmqCZgOPV3A3q3+wmMxEtDOGClZmUmN FBK/QHDWaB5YqBCHxF1O Lreqa2Xmnb5soA5frqsDQ6PAJVoNC3BGXCuuJL5ADKx4/yaAOb1/k1Q7qMpi7ChU1CPFPSnxtPcbFVRy BkcHOcGgDm4/ivBiUd2b 1g69WYHFq0nm5atXKSji7VMQPhFuYxMGmEZme5fXUvOYNYhRLB7O9jtF3LloSIbMO8BvoOGulaydIyi+ WgDW/7J6nTJLWu+WJYpP hpl5a2Shmq/nesE0P7V6SyHULIuAsAAKzHk+mPNPHknRoytFwMvOOQxZS6Y1P0vZcXBUU8sLqql6VNz8 684a7cPv0tvFXHwvvvlv 8mMYIBs3R3b3daEyM1bJY4s+jXAfTplZJZLCRvMIRYlZJYnjdlRcqpXKkKOozzmgCu/lS2vWJNIatxXY n0PMAyiyLD21lr8ZNHIW MOXmwAHIqevRCG26abwjbX2olnyl4j2ahxzvEF31QKnoupJFGiOLH9lOeWAZpB+Poi4BPpzTJugPb0eM dtWF6mh0l8AHVTDIElbe YMrJcXOKFJy11DXhhjWuTvy1O6FLweuMy/GTobqHW6yJO29ABNZLTEXQ1rqoqw1o35eXAVNRfdBVIxSV 2gkp6krIbjdSPBSkVdYt yADFAGXb/VD9lcn3p6aLQdh3FrJppJOMbCjqT5BP/KgjyycMji0YmALG68+Va3jWA6j5fbrciegjpIeZ O3MZyKP2yfm2YdASD0Hl jzbQcB4NI4fE6VF8qnyk+JJSV9PfjaVcd7DKYHH7w5EZoM1Jqq9w2NIJgFISOEZMWQXTWtf5cGuxiE4e zd07Grdz1cOzpLVl+HAc tIX1yZQpiG/EcByp3qVv7isgrN9wGrhQp6RVplvGhoEQJrUtU5WK8nSPgwa2n377L7nYEMdtJPN8WF8S O1kt4/bK3olwP+blt6AZ +CVDUOe0Fz5f5aEUShKedB9DIbrRoe50Vg3n7l2pE+hqNYR5bbDDZM8uoSfoeuNiAxCF7Sa7wVk6JMbG z34H7qMlNJytSvxrJL2n 42cwTWeIKQlIRjb0j9IgF9RYETJbEwKQsfFZWqj2YgWjgUtVFIwFPVUqwPXhBpNnFhsPtJZCYRUJk0+Z ykwGcBQieC1HL4djP7a2 mrnUtqiMuqoaFQSFz58xADFt4ASAH6BSfmAT5iydSaZhi7cVTi8SaDXmrhJdwsvzlP1GIn8kPCY1AKQV mgDN/6A9B54wTuvGZttr kMbiOndHEraDL8ifdWEENspiQpePHrH1SjBwoyJirZYZhB0j8740+OW4rWcN33eDFFw8oDPW4pQjLA5H suDYJVFsXw8OrqcsEcGX PMsuwqFJJeXfde4AHiyS4pQoH8RtmJCPBMDADs0VEL2gT2uWqDuwDjaFulUlmKc6vW3LvT8JsupHoNdP xZiANj+IMyfalgoY0q9J L96qSaltEwx8vZUtovbphGoCCxrVXnFTGWk9X1LMsEAvYF66xHQjMoQIF4Fw8fqjvYIeH2IHYFHwmUGQ q6RKD5ZBKXBAVJMEjKY4 bW41y48fdcsrcM+DhyAspaxwEgoftk0BYRHCtq7DKrXOKbvNOjqzTRU5HRFuNIvXygtdenZm0Bzlie9T IL3iUhCPlmJZtPm4UbyC gngWXopiuE1nUTffrD/FPh5HuDvpG28Z9nSAuVJw3ClqjPNmzDskur3asHT5MD9pUkwNlyAwZBMiR6vC jBjmlbPJYtuYusQ7GQ4A 22kYL08akYl5bfVDtIlRlDPPVh6b47/LZ6N4fxuU8uYRS4WiLpZIcMnw5Q4FzOmvuSPpV0KT2FeY9iVW qsn828MbmEgbGYIQhSek yCwjZhvPLOAzYzQAT+TrUa5wz5jG5WOKJ4RhrHkPJWIpF1k6kLNVOqFumNKmeXKE99psey3h4qEUgxTf WMPBUgz2uKv5oJQP0pZz Iv2iL8YHXInMU6hzf0iyjh573ZVWU5G1K5hZhHghIxUljDKVacOFUbDU2IjVSp+P7KeOB3imqTtKKS8z savP+3imFJUWnM8Bujah 1C9BUMCzCEc30aJa3zQL3CK32U4tFUDa5FsliEOlAuFpv3g9kPoq2bslJA/cVzcIgsZ0w84Hcfp/coxt Ot8TlfslHFXAKCla5Dpw 5ANAGja+YHIW03zZDk+mDWBuQuq8rnG/zFrHYMF3fWIjzLhcXeagX8y3CQWdkEAKyF4gekSfyWnBBMFx /AyWCzY3kOvFCOiOFloz IprqJhPlnK6b/vvEUUMBk+kE7lgktg7sfFMjvmbQOiihqvxE7wjHSLlZNh9tV7XEMgVTp80PXXIWV5D4 I8ysbM28m2EMlAGh9EgI PNZvuL6gpTc/6AzdtAdQzL8eiqDxBdIQZ0H2Qr1Eah44Q1Meqd3n5HIT/Zym+tBHZ5k2Eqld3m12U5Ps gNqxnIZp7OajcttPh14U kGsBIMpro1juEsdjUA3ezZeOS7elf9wyv38tFRLwUBvYsrAvR/z2X8EcNGS2Dw4x0wx1csPCmmnJ38Cc eYXohsOfJcqZMU8SHR6b gQA2MsRxULL35ROTvC8n1565UczqraXjXprKCgGQ6D41nK67E/AKVaGeswHhG8htc6gnHU75h1iuJe6I 9uzEsxjgBiYROEhWBiNw ty3y1s2IuTIuQR4TQ1Ke8xMlNGukVL17CYgzClwChfCoLlQKdmQeeEvUPtwcVQxHCPHzA2+kQ7psw3qJ q52NRrbF5+eWBtlnFKN2 aHXfRfjfW0AHkybHVR4zbkfUO3eGBgpBR1huBwEYA4b4mWyphVMNz2ij63wtGFAVAWroYD78vCgZUHTg AoAKACgAoAKAPNfFEF/f 88rWotnwTWt0ldl1fc89BeFE98PAwkiGLdMUym+cSNYrPwrUf4OMGK/VT0e4aLzJHehuMODY3hAwwF0K 2Q5X12ExeKF3bkp2gRg4 xd+XHPOXGHyQGXRrYQD1HIavtTHMOekOxkga4SKZPoyH4xuU8CaCGlsg9gHgDPOsMqWALCPGAKdc5TYy St7ndHz43MIg/j15SUum gT2axijg/WwPiM5agR149OCnCHrOM4QTgqqksaYfDvuikIEZP3nc9hP2zNhPElthstVFOM7CV8/lyqxX A5wtZQVEy7znVD71o27B abHYkRmfIA6E94mrhGKEHucbpd6FOXwRzS5tFsSsFRBf+VEFwFNvtnZhP66l9gEVm5D9lPkqlO70PTkJ ktAROM758aBIdoeROY2w QJ3iYeY/suC2Guynmp00qlPgrOixAui12tKSZ8LmfxUROEXiFpbulSaphiCrf73i4j/YcWzqyu/nGdpJ Db2ubJJyTOhvTDm5VVBV 4KXnbXgRsEfpGbI24DGbFxV6PdGMzAoDCihr+MIIqTUHxzhQeqAFYEBFcnAg02pQWRAcYwOIXGgTmNDV WjFsIqaOkO7pyf7jmklS QWerDH39sz8VQJAksJawxY2oqI0VpNRuQ+HzSluw2oTjWGOJmSOTJWw9nc5UQWeuEAHRXvziH8fAqLa2 TsGbcu1F/bmeUx+cLQzt qdE3dENk4ET1MntmQdeKMHEahw9NCsKsoCXyVeENZtLBdWeeu4fFKkOVCE/oGuXF8iPyD3oRUdiUdfeC s1Ym5DqyLmX2W16ViN+f iA1auI3aLWEgIbkWGRoN4IZnH81ZXaIUIl1Q0zn7V086rqqGk2wAlPLsimxfE9BAzMvWOhj4JJyjz2LV BcW3rneKRoniSi2C7j67 TP248jHiT8oKavS5g21dBGtLXpLIsPCXv3VJF55H7sEvkYmpi+ND4JusQSM2AbnQa7ngiuQ36Io3PL8U x6TTFUOfCarikyndO5xf wqhTNrmlI1OIVYzMcxyzKpvpiWjUvxTjJMSpJ1gVFE7ENxAhOn0E6mePA0wH8DdhjvDD65QXtf+2RrdQ mHwcGfuM0KKgtuMlS5r2 hjNEk1ol5y8oYvizIGLn2crNrwrpN3NQsrFHp8Yq8EZnBLrV89MHxXgNXjHdDHEWgpzZmwYMWupfzBS9 UMFZDuxqJ4VS2LUiMBSm PtJsZJYjWuQeXAQVBF5Lnb4IFdOYv9cXbYvaBXsNE4idOT8fTkU19OK6BDHRHEtXiKZ9CYD3hSVuSDQT AFABQAUAFABQAUAFABQA 99VSKhIVXLqTdMIrHwjdJS5nb0BUURJKkTPMel6Ru1FkuRQ4fQJ+xKGbR7qnjnsfYILMCFvAdiNFJwvA jEsGIFF6uHPi0FBoA/wA +mVE8LbdAJ0EJNNJPVPXUOHLSZISTPOVWNKjEgKgGzfCU27XWiX6peAeAxmD62I0mbCYIKh3IRSLUcfT VOGnoNJSETBG59XWTIQg j7NQlpD3Mf7EA4H35OIemGD2WJ9/NqMAMmHwMKCH3yIcJGJJyN//Z></span></div><div styl e=text-align:center>
</div><div style=text-align:left>Patient Name: <span class=clinicalNoteMacroHighlighted id=[id number] macroname=PatientName spantype=macro title=#PatientName">LINDA GROOME</span></div><div style=text-align:left>MRN#: <span class=clinicalNoteMacroHighlighted id=[id number] macroname=&quo t;PatientMRN spantype=macro title=#PatientMRN>[id number]</span></div><div style=text-align:left>Location: <span class=clinicalNoteMacroHighlighted id=[id number] macroname=AppointmentLocation" spantype=macro title=#AppointmentLocation>[facility]</span&gt ;</div><div style=text-align:left>: <span class=clinicalNoteMacr oHighlighted id=[id number] macroname=PatientDateOfBirth sp antype=macro title=#PatientDateOfBirth>1945</span></div><div style=text-align:left>Seen By: Brigitte Acevedo MD</div><div style=text-align:left>Attending Provider: <span class=clinicalNoteM acroHighlighted id=[id number] macroname=AttendingPhysician&quot ; parameters=ShowSpecialty:No spantype=macro title=#AttendingPhysician (ShowSpecialty:No)>Brigitte Acevedo</span></div><div style=text-al ign:left>Date of Service: <span class=clinicalNoteMacroHighlighted id= [id number] macroname=EffectiveDate spantype=macro title=& quot;#EffectiveDate>02/25/2025</span></div><div style=text-align:left& quot;>
</div><div style=text-align:left><strong>Note to patient: </strong>The purpose of this note is to communicate optimally with the other providersinvolved in your care. It is written using standard medical terminology. If you have questions regarding details of the note, please schedule an appointment to discuss your concerns.

</div><div style=text-align:left><span class=clinicalNoteSectionShowSeparators clinicalNoteSectionVisible id=[id number] internalbreak section=false originalname=Referring Physician: recognizeconcepts=true spantype=section suppressempty=false>Referring Physician: </span>
<span class=clinicalNoteMacroHighlighted id=[id number] macroname=ReferringPhysician spantype=macro title=#ReferringP hysician>[facility]span></div> <div style=text-align:left>
</div><div style=text-align:left><span class=clinicalNoteSectionShowSeparators clinicalNoteSectionVisible id=[id number] internalbreaksection=false originalname=Surgeon: recognizeconcepts=true spantype=section suppressempty=true>Surgeon: </span>
</div><div style=text-align:left>
</div><div style=text- align:left><span class=clinicalNoteSectionShowSeparators clinicalNoteSectionVisible id=[id number] inte rnalbreaksection=false originalname=Reason for Visit: recognizeconcepts=&quo t;true spantype=section suppressempty=false>Reason for Visit: </ span>
Monoclonal gammopathy.</div><div style=text-align:left>&lt ;br></div><div style=text-align:left><span class=clinicalNoteSec tionShowSeparators clinicalNoteSectionVisible id=[id number] internalbreaksection=false originalname=History of Present Illness: recognizeconcepts=true spantype=section suppressempty=false>History of Present Illness: </span>
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 She is here for further evaluation. </li></ol></div><div style=text-align:left">
</div><div style=text-align:left><span class=clinicalNoteSectionShowSeparators clinicalNoteSectionVisible id=[id number]=false originalname=Interval History: recognizeconcepts=true spantype=section suppressempty=false>Interval History:</span>
<div style=text- align:left>Ms. Mcpherson presents to the clinictoday for follow up evaluation regarding her monoclonal gammopathy. She continues to receive Vitamin B12 injections, every 2 months.
Does admit to fatigue, which concerns her, but states shedoes feel better when she is active. She is limited though by chronic low back pain, for which she gets cortisone injections.

</div></div><div style=text-align:left><span style=font-size:12px>Today, Patient denies any new aches or pains, fevers, chills, night sweats, cough, chest pain, shortness of breath, abdominal pain, constipation, or diarrhea. Patient s appetite and energy are at baseline.</span></div><div style=text- align:left><span class=clinicalNoteSectionShowSeparators clinicalNoteSectionVisible id=[id number] internalbreaksection="false originalname=Past Medical History: recognizeconcepts=true spantype=section suppressempty=false>Past Medical History: </span>
<div style=text-align:left><ol> <li style=margin: 0in 0in 0.0001pt;>Hypertension.</li> <li style=margin: 0in 0in 0.0001pt;>Hype rlipidemia.</li> <li style=margin: 0in 0in 0.0001pt;>TIA.</li> <li style=margin: 0in 0in 0.0001pt;>Obesity.</li> <li style=margin: 0in 0in 0.0001pt;>Overactive bladder.</li> <li style=margin: 0in 0in 0.0001pt;&quo t;>Degenerative joint disease.</li> <li style=margin: 0in 0in 0.0001pt;>Lumbar radiculopathy.</li> <li style=margin: 0in 0in 0.0001pt;>Paresthesia.</li> <li style=margin: 0in 0in 0.0001pt;>GERD.</li> <li style=margin: 0in 0in 0.0001pt;>Lymphedema. </li> <li style=margin: 0in 0in 0.0001pt;>Bursitis.</li> <li style=margin: 0in 0in 0.0001pt;>Headache.</li> <li style=margin: 0in 0in 0.0001pt;>Reactive airway disease.</li> <li style=margin: 0in 0in 0.0001pt;>Gout.</li> <li style=margin: 0in 0in 0.0001pt;>Pulmonary nodule.</li> <li style=margin: 0in 0in 0.0001pt;>Impaired fasting glucose.</li> <li style=margin: 0in 0in 0.0001pt;">Chronic back pain.</li> <li style=margin: 0in 0in 0.0001pt;>Elevatedliver function tests and alkaline phosphatase.</li> <li style=margin: 0in 0in 0.0001pt;>Chest pain evaluation on 04/02/19 at [facility].</li> <li style=margin: 0in 0in 0.0001pt;>Cataracts.</li> <li style=margin: 0in 0in 0.0001pt;>Bron chitis.</li> <li style=margin: 0in 0in 0.0001pt;>07/07/2019 bone survey showed no convincing evidence of lytic bone lesion and chronic/degenerative findings of the spine </li> <li style=margin: 0in 0in 0.0001pt;>07/14/2019 pt was seen at [facility] ER for RLE and right sided back pain </li> <li style=margin: 0in 0in 0.0001pt;>07/21/2019 CT bx bone marrow path: Normocellular trilineage bone marrow with absent iron stores and no evidence of a plasma cell neoplasm. </li></ol></div></div><div style=text- align:left><span class=clinicalNoteSectionShowSeparators clinicalNoteSectionVisible id=[id number] in ternalbreaksection=false originalname=Past Surgical History: recognizeconce pts=true spantype=section suppressempty=false>Past Surgical History: </span>
<span style=font-size:12px></span><ol><li style=margin:0in 0in 0.0001pt><span style=font-family:[place],Helvetica,sans-serif><span style=font-size:12px><span style=color:black&q uot;>Cholecystectomy.</span></span></span></li> <li style=margin:0in 0in 0.0001pt><span style=font-family:[place],Helvetica,sans-serif><span style=font-size:12px><span style=color:black>Hemorrhoidectomy. </span></span></span></li> <li style=margin:0in 0in 0.0001pt><span style=font-family:[place],Helvetica,sans-serif><span style=font-si ze:12px><span style=color:black>Benign cysts in the breast removal.</s mccabe></span></span></li> <li style=margin:0in 0in 0.0001pt><span style=font-family:[place],Helvetica,sans-serif><span style=font-size:12p x><span style=color:black>Right arthroscopy.</span></span></span></li> <li style=margin:0in 0in 0.0001pt><span style=font-family:[place],Helvetica,sans- serif><span style=font-size:12px><span style=color:black>Colonoscopy on 07/17/[address] Brown </span></span></span></li> <li style=margin:0in 0in 0.0001pt><span style=font-family:[place],Helvetica,sans-serif><span style=font-size:12px><span style=color:black>Endoscopy on 03/30/18.</span></span></span></li> <li style=margin:0in 0in 0.0001pt><span style=font-family:[place],Helvetica,sans-serif><span style=font- size:12px><span style=color:black>Steroid injection epidural 09/2018.</span></span></span></li> <li style=margin:0in 0in 0.0001pt><span style=font-family:[place],Helvetica,sans-serif><span style=font- size:12px><span style=color:black>Right SI joint Steroid injection on 08/04/2019</span></span></span></li></ol></div><div style=text- align:left><span class=clinicalNoteSectionShowSeparators clinicalNoteSectionVisible id=[id number] [employer] intern albreaksection=false originalname=Medications: recognizeconcepts=true spantype=section suppressempty=false>Medications: </span>
As reviewed below.</div><div style=text-align:left>
</div><div style=text- align:left><span class=clinicalNoteSectionShowSeparators clinicalNoteSectionVisible id=[id number] internalbreaksection="false originalname=Social History: recognizeconcepts=true spantype=section suppressempty=false>Social History: </span>
Sheis a . She has a grownup son and a daughter. She is retired and lives in [place] by herself. She has never smoked and does not abuse alcohol or drugs. She does walking regularly and exercises at [facility] three times a week.</div><div style=text- align:left>
</div><div style=text-align:left"><span class=clinicalNoteSectionShowSeparators clinicalNoteSectionVisible id=&q uot;[id number] internalbreaksection=false originalname=Family History: recognizeconcepts=true spantype=section suppressempty= false>Family History: </span>
<div>Noncontributory- adopted </div></div><div style=text-align:left>
</div><div style=text- align:left><span class=clinicalNoteSectionShowSeparators clinicalNoteSectionVisible id=[id number] internalbreaksection="false originalname=Review of Systems recognizeconcepts=true spantype=section suppressempty=false>Review of Systems:</span>
<div>Negative unless otherwise noted in HPI.</div></div><div style=text-align:left>
</div><div style=text-align:left><span class=&qu ot;clinicalNoteSectionShowSeparators clinicalNoteSectionVisible id=[id number] internalbreaksection=false originalname=Physical Exam recognizeconcepts=true spantype=section suppressempty=false>Physical Exam:</span>
<div>GENERAL: Well developed, well built, well nourished, not in anyacute distress.</div><div>VITAL SIGNS: Stable.</div><div>HEENT: Normocephalic. Pupils are bilaterally round and reacting to light equally. Oral mucosa is moist, no ulcer seen,no thrush.</div><div>NECK: Supple.</div><div>HEENT: Peerless conjunctivae. No icterus, no JVD. Oropharynx is negative.<div>HEART: Regular rate and rhythm without murmurs.</div><div>LUNGS: Clear to auscultation and percussion.</div><div>SPINE: Without percussion tenderness.</div><d iv>ABDOMEN: Without hepatosplenomegaly. There are no masses present.</div><div>EXTREMITIES: No clubbing, cyanosis or edema is noted.</div><div>LYMPH NODES: There are no palpably enlarged nodes in any of the superficial drainage areas in the neck, supraclavicular, infraclavicular, axillary, epitrochlear</div><div>NEUROLOGICAL: A full neurological examination was not performed. </div></div><div>PSYCHIATRIC: Mood and affect are appropriate.</div></div><div style="text- align:left>
</div><div style=text-align:left><span class=clinicalNoteSectionShowSeparators clinicalNoteSectionVisible id=[id number] internalbreaksection=false originalname=Labs: recognizeconcepts=true spantype=section suppressempty=false>Laboratory Data:</span>
<div style=text-align:left><ul> <li>CBCon 02/26/19 as normal. BMP shows a creatinine of 1.13 and GFR is 55. </li> <li>LFTs are normal on 01/20/19 and 08/21/18. Serum immunoelectrophoresis shows IgG kappa monoclonal protein on 02/25/19. </li> <li>LFTs are normal on 03/18/19. C</li> <li>BC on 04/06/19 is normal. CMP is normal except for GFR of 53 mL/min. Serum immunofixation shows M-spike IgG kappa 0.21 g/dL. Serum free light chain assay shows 40 mg/L kappa light chain with ratio of 2.3, elevated. SIEP 0.2 Mspike</li> <li>Labs on 12/02/19: CBC - WBC 6.47, Hgb 4.90, Hct 13.3, PLT 237 CMP WNL Anemia labs- Iron sat % 31.07, Ferritin 60.2, Vit B12 294 Mspike 0.19</li> <li>Labs on 03/29/20:CBC - WBC 8.0, Hgb 13.0, Hct 40.9, PLT 277 CMP WNL Anemia labs Iron sat % 17.94, Ferritin 75.8 Mspike 0.22</li> <li>CBC on 08/03/20: WBC 6.8; HGB 15.0; HCT 46.1; PLT 265. CMP shows Creatinine 1.390; GFR 36.96. Vitamin D normal at 50.61. Iron sat. 20.52%; ferritin 37.9. Free kappa lt chain 39.57; free lambda lt chain 26.97; K:L ratio 1.47. Previously identified paraprotein detected in gamma region. Was .22 gm/dL, now .18 gm/dL.</li> <li>CBC on 11/23/20: WBC 7.25 ; HGB 15.9; HCT 49.1; PLT 257.</li> <li>CBC on 03/15/21: WBC 7.0; HGB 15.7; HCT 47.7;PLT 287. CMP reveals glucose 180; Creatinine 1.410; GFR 36.26. Iron profile WNL. M-spike protein 0.19. </li> <li>CBC on 07/19/21: WBC 7.8; HGB 15.9; HCT 48.2; PLT 256. CMP revealsglucose 108; BUN 25; Creatinine 1.430; GFR 35.68. Iron profile WNL. M-spike protein 0.17. </li> <li>CBC 11/15/21: WBC 9.5, RBC 55, HGB 15.6, HCT 47.6, PLT 339, ANC 7.10 CMP: Glu 155, BUN 32, Creat 1.3500, GFR MADISYN 38.13, NML otherwise Iron sat 38.06, Ferritin 116.7, Vitamin B12 777.00 SPEP: alpha 1% 4.90, alpha 2% 15.40, M-Riky 0.20. [place] light chain 33.34, lambda light chain 14.01</li> <li>CBC 03/13/22: WBC 7.4, RBC 5.48, HGB 15.9, HCT 47.6, PLT 248 CMP: Glu 146, BUN 26, Creat 1.240, GFR MADISYN 41.94, NML otherwise Iron sat 54.67, Ferritin 109.3 SPEP: alpha 1% 4.80, alpha 2% 15.30, M-Riky 0.20</li> <li>CBC 08/29/22: WBC 8.2, RBC 5.38, HGB 15.3, HCT 47.0, PLT 276k CMP: glucose 118, BUN 32, creatinine 1.410 Iron sat 46.10%, Ferritin 219.1 SPEP: alpha 1% 5.10, alpha 2% 15.60</li> <li>CBC 12/19/22: WBC 10.0, RBC 5.12, HGB 15.1, HCT 46.2, PLT 282k, ANC 7.47 CMP: glucose 113, BUN 27, ALT 61, NML otherwise Iron sat41.18%, Ferritin 183.8 IgG 668, IgA 113, IgM 78 M-spike 0.11, SPEP: Monoclonal IgG kappa band detected, previously identified paraprotein detected in gamma region. Was 0.15 gm/dL, now 0.11 gm/dL. [place] light chain 50.52, Lambda light chain 17.53</li> <li>CBC 03/13/23: WBC 7.2,RBC 5.10, HGB 15.1, HCT 46.5, PLT 249k CMP: glucose 103, BUN 32, NML Vitamin D 67.00 Iron sat40.06%, Ferritin 226.6 IgG 620, IgA 101, IgM 103 M-spike 0.15, SPEP: Monoclonal IgG kappa band detected, previously identified paraprotein detected in gamma region. Was 0.15 gm/dL, now 0.11 gm/dL, [place] light chain 51.36, Lambda light chain 16.07</li> <li>12/04/23- CBC: WBC8.6, HGB 13, HCT 40.1, PLT 288 CMP: BUN 24, otherwise WNL TIBC 279, Ferritin 163, Iron sat 36.20% IgG, IgA, IgM WNL M-spike 0.14, [place] LC 40.25, Lambda LC 12.19, Previously identifiedparaprotein detected in gamma region. Was 0.11 gm/dL, now 0.14 gm/dL. Monoclonal IgG kappa band detected.</li> <li>02/26/24- CBC: WBC 6.9, HGB 12.9, HCT 40, PLT 226 &lt ;/li> <li>02/18/25- CBC: WBC 7.3, HGB 13.3, HCT 40.5, PLT 240 CMP: BUN 28 TIBC 287, Ferritin 94.3, Iron sat 39.02% Vitamin B12 340 IgG, IgA, IgM WNL M-spike 0.16, [place] LC 52.01, Lambda LC 16.94, Previously identified paraprotein detected in gamma region. Was 0.16 gm/dL, now 0.16 gm/dL. Monoclonal IgG kappa band detected</li></ul></div></div><div style=text-align:left><span class=clinicalNoteSectionShowSeparators clinicalNoteSectionVisible id=[id number] internalbreaksection=false originalname=Radiologic Data: recognizeconcepts=true spantype=section suppressempty=true>Radiologic Data:</span>
<div style=text- align:left><ul> <li>MRI 08/2018</li> <li>07/07/2019 bonesurvey showed no convincing evidence of lytic bone lesion and chronic/degenerative findings of the spine </li> <li>07/21/2019 CT bx bone marrow diagnostic. Blood smear showed no diagnostic abnormality. Normocellular trilineage bone marrow with absent iron stores and no evidence of a plasma cell neoplasm.</li> <li>05/25/2020 BLE PVL: Negative for DVT.</li> <li>CT Heart 09/13/22: Agatston calcium score of 5297. No significant incidental findings.</li> <li>Stress Test 10/15/22: No evidence of reversible myocardial ischemia. Ejection fraction calculated at 95%. This is a low risk study.</li> <li>PVL 11/25/22: No evidence of acute superficial or deep vein thrombosis noted in either lower extremity. No evidence of venous insufficiency noted bilaterally.</li> <li>DEXA scan 04/03/23: osteopenia left forearm. </li> <li>US abdomen 05/13/23: mild to moderate liver stiffness. </li></ul></div></div><div style=text- align:left><span class=clinicalNoteSectionShowSeparators clinicalNoteSectionVisible id=[id number]" internalbreaksection=false originalname=Assessment & Plan recog nizeconcepts=true spantype=section suppressempty=false>Assess ment:</span>
<div style=text-align:left><ol> <li>77-year-old female with IgG kappa monoclonal gammopathy, mild, with no evidence of anemia, and has mild renal insufficiency. Pt's bone marrow bx was negative for myeloma 07/21/2019. She is doing well. </li> <li>Vitamin B12 deficiency 12/02/2019. On monthly SC supplementation starting 07/04/21.</li></ol></div></div><div style=text-align:left><span class=clinicalNoteSectionShowSeparators clinicalNoteSectionVisible id=[id number] internalbreaksection=false originalname=Plan recognizeconcepts=true spantype=section suppressempty=false>Plan:</span>
<div style=text- align:left><ol> <li>Reviewed labs from 02/18/25- CBC: WBC 7.3, HGB 13.3, HCT 40.5, PLT 240 CMP: BUN 28 TIBC 287, Ferritin 94.3, Iron sat 39.02% Vitamin B12 340 IgG, IgA, IgM WNL M-spike 0.16, [place] LC 52.01, Lambda LC 16.94, Previously identified paraprotein detected in gamma region. Was 0.16 gm/dL, now 0.16 gm/dL. Monoclonal IgG kappa band detected</li> <li><span style=background-color:inherit; color:inherit; font-family:inherit; font- size:inherit; font-style:inherit; font-weight:inherit">Continue Vitamin B12 SC injections q8 weeks. Next injection due 04/15/25 </span>
</li> <li>If B 12 levels dropped, would go back to monthly injections</li> <li>Reviewed with patient that fatigue should not be from the blood work as that has been stable, she was encouraged to maintain active life style and to follow with PCP</li> <li>Continue to monitor with CBC, CMP, Iron profile, Ferritin, Vitamin D, ELVIA/SPEP and FLCA labs q. 4 months and prior to next visit.</li> <li>Return for follow up in 12 months, or sooner if necessary. </li> <li><span style=font-family:Times New Mo; font-size:7pt; font- stretch:normal; bdwq-ukyoldt-kgqn-:normal; vdbo-zukukqw-ldwvcbe:normal; line-height:normal> </span><span style=color:windowtext; font-family:[place],sans-serif; font-size:9pt; text-indent:-0.25in>All her questions have been answered to her satisfaction. She was asked to call if she has any new concerns or symptoms in the interim and I can see her sooner.</span></li></ol></div></div><div style=text-align:left><div style=font-family:Debbie Unicode MS,Debbie,sans-serif>I do appreciate allowing me to participate in <span class=clinicalNoteMacroHighlighted id=[id number] macroname=PatientName spantype=macro title=#PatientName>LINDA MCPHERSON</span>'s medical care and will keep you updated.</div></div><div style=text-align:left>
</div><div style=text-align:left><span class=clinicalNoteSectionShowSeparators clinicalNoteSectionVisible id=[id number] internalbreaksection=false originalname=Health Maintenance" recognizeconcepts=true spantype=section suppressempty=false>Health Maintenance:</span>
<span class=clinicalNoteMacroHighlighted id=[id number] macroname=PatientSmokingStatus spantype=macro title=#PatientSmokingStatus>Smoking Tobacco : Never smoker; Smokeless Tobacco : none found; Vaping : none found</span></div><div style=text-align:left><span class=clinicalNoteMacroHighlighted id=[id number] m acroname=Immunizations parameters=ListType:Bulleted spantype=macro" title=#Immunizations(ListType:Bulleted)><ul> <li>Flu vaccine - Adult (2019), Elsewhere</li> <li>Flu vaccine - Adult (02/26/2019), Elsewhere</li> <li& gt;Pneumococcal vaccine (Unspecified formulation) (03/09/2013), Elsewhere</li> <li>Zoster Recombinant, Adjuvanted vaccine (12/24/2018), Elsewhere</li> <li>Zoster vaccine (09/08/2018), Elsewhere</li></ul></span></div><div style=text-align:left"><span class=clinicalNoteMacroHighlighted id=[id number]" macroname=Screenings parameters=ListType:Bulleted spantype=macro" title=#Screenings(ListType:Bulleted)><ul> <li>Colonoscopy on 07/17/2017</li> <li>Mammogram - Screening (bilateral) on 10/02/2018</li></ul></span></div><div style=text-align:left>
</div><div style="text-align:left><span class=clinicalNoteSectionShowSeparators clinicalNoteSectionVisible id=[id number] internalbreaksection=false originalname=Vital Signs: recognizeconcepts=true spantype=section suppressempty=false>Vital Signs:</span>
<span class=clinicalNoteMacroHighlighted id=[id number] macroname=PatientHeight pa rameters=Label:Height:,LookBackDays:All spantype=macro title=#PatientH eight(Label:Height:,LookBackDays:All)>Height: 61 in</span></div><div style=& quot;text-align:left><span class=clinicalNoteMacroHighlighted id=macro [id number] macroname=PatientWeight parameters=Label:Weight:,LookBack Days:0 spantype=macro title=#PatientWeight(Label:Weight:,LookBackDays:0)&quo t;>Weight: 187 lb</span></div><div style=text-align:left><span c lass=clinicalNoteMacroHighlighted id=[id number] macroname= PatientVitalSigns parameters=LookBackDays:0 spantype=macro title=&quot ;#PatientVitalSigns(LookBackDays:0)>Blood pressure: 114/73, R arm, Regular, Pulse: 65, Temperature: 98.2 F, Respirations: 18, O2 sat: 96%, Pain Scale: 0, Height: 61 in, Weight: 187 lb, BSA: 1.91, BMI: 35.33 kg/m2</span></div><div style=text-align:left><spanclass=clinicalNoteMacroHighlighted id=[id number] macroname="KarnofskyStatus parameters=Label:Karnofsky performance status: spantype=macro title=#KarnofskyStatus(Label:Karnofsky performance status:)>Karnofsky perfor juan status: 80% Normal activity with effort; some signs or symptoms of disease. (Date: 07/26/2021)</span></div><div style=text-align:left><span class=clinicalNoteMacroHighlighted id=[id number] macroname=DepressionStatus" parameters=Label:Depression Status,LookBackDays:All spantype=macro title =#DepressionStatus(Label:Depression Status,LookBackDays:All)>Depression Status Was screened; Outcome positive: No; Screening Date: 02/25/2025; Screening Tool: PRIME MD-PHQ2; Total depression score: 0</span></div><div style=text-align:left>
</div><div style=text-align:left><span class=clinicalNoteSectionShowSeparators clinicalNoteSectionVisible id=[id number] internalbreaksection=false originalname=Laboratory: recognizeconcepts=true spantype=section suppressempty=false>Laboratory: </span>
<span c lass=clinicalNoteMacroHighlighted id=[id number] macroname= LabSection parameters=FlowsheetCategory:CBC,Label:CBC,LookBackDays:14 spantype="macro title=#LabSection(FlowsheetCategory:CBC,Label:CBC,LookBackDays:14)>CBC
(02/18/2025) WBC x 10^3/uL : 7.3; RBC x 10^6/uL : 4.62; NRBC, % : 0.00; HGB g/dL : 13.3; HCT % : 40.5; MCV fL : 88; MCH pg : 28.8; MCHC g/dL : 32.8; RDW % : 13.6; PLT x 10^3/uL : 240; MPV fL : 9.10; Demond % : 50.5; LY % : 41.1; MO % : 6.3; EO % : 1.0; BA % : 0.4; IG % : 0.70; Demond # (ANC) x 10^3/uL : 3.69; LY # x 10^3/uL : 3.00; MO # x 10^3/uL : 0.46; EO # x 10^3/uL : 0.07; BA # x 10^3/uL : 0.03; IG # x 10^3/uL : 0.05</span></div><div style=text-align:left><span class=clinicalNoteMacroHighlighted id=[id number] macrona me=LabSection parameters=FlowsheetCategory:Chemistries,LookBackDays:14 spant ype=macro title=#LabSection(FlowsheetCategory:Chemistries,LookBackDays:14)&g t;(02/18/2025) Glucose mg/dL : 89; BUN mg/dL : 28 (H); Creatinine mg/dL : 0.990; Sodium mmol/L : 143; Potassium mmol/L : 4.6; Chloride mmol/L : 107; CO2 mmol/L : 27; Calcium mg/dL : 9.8; Albumin g/dL: 3.5; Total protein g/dL : 5.8; Bilirubin, total mg/dL : 0.7; Alkaline phosphatase U/L : 83; AST/SGOT U/L : 21; ALT/SGPT U/L : 24; GFR estimate mL/min/1.73m2 : 57.61</span></div><div s tyle=text-align:left><span class=clinicalNoteMacroHighlighted id=&quot ;[id number] macroname=LabSection parameters=FlowsheetCategory:An emia Labs,LookBackDays:14 spantype=macro title=#LabSection(FlowsheetCategory :Anemia Labs,LookBack:14)>(02/18/2025) Iron / FE ug/dL : 112.00; TIBC ug/dL : 287.0; Ferritin ng/mL : 94.3; Unbound iron capacity ug/dL : 175.00; Iron, % saturation % : 39.02; Vitamin B12 pg/mL : 340.00</span></div><div style=text-align:left>
</div><div style=text-align:left><span class=clinicalNoteSectionShowSeparators clinicalNoteSectionVisible id=[id number] internalbreaksection=false originalname=Current Medications: recognizeconcepts=true spantype=section suppressempty=false>Current Medications:</span></div><div style=text- align:left><span class=clinicalNoteMacroHighlighted id=[id number] macroname=PatientMedications parameters =ListType:Bulleted,ValueIfNull:No Known Medications spantype=macro title=&qu ot;#PatientMedications(ListType:Bulleted,ValueIfNull:No Known Medications)><ul> <li>Metronidazole Vaginal Gel 0.75 %</li> <li>Breo Ellipta (Fluticasone- Vilanterol Inhaler 200 mcg-25 mcg/dose)</li> <li>Calcium 600 + D(3) (Calcium- Cholecalciferol Oral 600 mg-10 mcg (400 unit))</li> <li>Febuxostat Oral 40 mg orally </li> <li>Ezetimibe Oral 10 mg tablet</li> <li>Losartan Oral 100 mg tablet</li> <li>Aspirin Oral 81 mg capsule po daily</li> <li>Albuterol HFA Inhaler 90 mcg/actuation inhalation qd</li> <li>Clotrimazole-Betamethasone Topical Cream 1 %-0.05 %</li> <li>Rosuvastatin Calcium Oral 10 mg tablet</li> <li>Hyoscyamine Oral 0.125 mg tablet 1 tablet orally 4 times per day prn dyspepsia</li> <li>Gabapentin Oral 300 mg orally Take 1 pill by mouth in the a.m. and afternoon and 2 pill at night</li> <li>Ketoconazole Topical Cream 2 % 2 % cream</li> <li>Magnesium Oxide Oral 400 mg magnesium tablet 2 tablet QHS&lt ;/li> <li>Spironolactone Oral 25 mg tablet </li></ul></span><br&g t;
<span class=clinicalNoteSectionShowSeparators clinicalNoteSectionVisible id=[id number] internalbreaksection=false originalname=A llergies & Adverse Reactions recognizeconcepts=true spantype=section suppressempty=false>Allergies & Adverse Reactions:</span>
<span class=clinicalNoteMacroHighlighted id=[id number] mac roname=Allergies parameters=ListType:Bulleted spantype=macro tit le=#Allergies(ListType:Bulleted)><ul> <li>doxycycline</li> <li&g t;prednisone</li></ul></span></div><div style=text-align:left><span class=clinicalNoteMacroHighlighted id=[id number] ma croname=AdverseEvents parameters=ListType:Bulleted spantype=macro" title=#AdverseEvents(ListType:Bulleted)> </span></div><div style=text-align:left>
</div><div style=text-align:left><span class=clinicalNoteSectionShowSeparators clinicalNoteSectionVisible id=[id number] internalbreaksection=false originalname=Problem List recognizeconcepts=true spantype=section suppressempty=false>Problem List:</span>
<span class=clinicalNoteMacroHighlighted id=[id number] macroname=ProblemsTable spantype=macro title=#ProblemsTable><table border=1 style=width:100%> <tbody> <tr> <td wnese=469mb>Problem</td> <td mkuec=996xx>Principal Dx</td> <td dwrgw=661us>Status</td> <td lapdd=500xd>Date</td> </tr> <tr> <td width="100px>Monoclonal gammopathy</td> <td lmxfw=035nh>Yes</td> <td ibuwi=643ew>Active</td> <td pmjym=169jm>n/a</td> </tr> <tr> <td aiafm=274kr>CKD</td> <td atnbe=880ta">
</td> <td bichg=147jm>Active</td> <td losia=360uc>n/a</td> </tr> <tr> <td muoyw=591ju>Vitamin B12 deficiency</td> <td xrljh=705tx>
</td> <td izvpf=527fq>Active</td> <td rabnd=496np>n/a</td> </tr> </tbody ></table></span></div><div style=text-align:left>
</div><div style=text-align:left>
</div><div style=text-align:left><span class=clinicalNoteSectionShowSeparators clinicalNoteSectionVisible id=[id number] internalbreaksection=false originalname=New Orders recognizeconcepts=true spantype=section suppressempty=false>New Orders:</span>
<span class=clinicalNoteMacroHighlighted id=[id number] macroname=Orders parameters=Lo okBackDays:0,OrderType:Services,ListType:Bulleted spantype=macro title=#Orde rs(LookBackDays:0,OrderType:Services,ListType:Bulleted)><ul> <li>02/25/2025, RT C , Perform Date: 12 Months, Associated problem(s): Monoclonal gammopathy * (D47.2)</li> <li>02/25/2025, RTC nurse for injection, Instructions: b12, Perform Date: 04/15/2025, Associatedproblem(s): Monoclonal gammopathy * (D47.2)</li> <li>02/25/2025, RTC nurse for injection, Instructions: b12, Perform Date: 06/10/2025, Associated problem(s): Monoclonal gammopathy * (D47.2)</li> <li>02/25/2025, RTC nurse for injection, Instructions: b12, Perform Date: 08/05/2025, Associated problem(s): Monoclonal gammopathy * (D47.2)</li> <li>02/25/2025, RTC nurse for injection, Perform Date: 09/30/2025, Associated problem(s): Monoclonal gammopathy * (D47.2)</li></ul></span></div><div style=text-align:left><span class=clinicalNoteMacroHighlighted id=[id number] macroname="Orders parameters=LookBackDays:0,OrderType:Labs,ListType:Bulleted spantype=macro title=#Orders(LookBackDays:0,OrderType:Labs,ListType:Bulleted)><ul> <li>02/25/2025, CBC w/ auto diff, Perform Date: 1 week prior to next visit, Associated problem(s): Monoclonal gammopathy * (D47.2)</li> <li>02/25/2025, CBC w/ auto diff, Perform Date: 08/05/2025, Associated problem(s): Monoclonal gammopathy * (D47.2)</li> <li>02/25/2025, CMP, Perform Date: 1 week prior to next visit, Associated problem(s): Monoclonal gammopathy * (D47.2)</li> <li>02/25/2025, ELVIA and SPEP panel (with QIGS), Perform Date: 1 week prior to next visit, Associated problem(s): Monoclonal gammopathy * (D47.2)</li> <li>02/25/2025,ELVIA and SPEP panel (with QIGS), Perform Date: 08/05/2025, Associated problem(s): Monoclonal gammopathy * (D47.2)</li> <li>02/25/2025, Iron, TIBC, Ferritin panel, Perform Date: 1 week prior to next visit, Associated problem(s): Monoclonal gammopathy * (D47.2)</li> <li>02/25/2025, Iron, TIBC, Ferritin panel, Perform Date: 08/05/2025, Associated problem(s): Monoclonal gammopathy * (D47.2)</li> <li>02/25/2025, [place]/Lambda light chains, free w/ ratio, serum, Perform Date: 1 week prior to next visit, Associated problem(s): Monoclonal gammopathy * (D47.2)</li> <li>02/25/2025, [place]/Lambda light chains, free w/ ratio, serum, Perform Date: 08/05/2025,Associated problem(s): Monoclonal gammopathy * (D47.2)</li> <li>02/25/2025, Vitamin B12and Folate panel, Perform Date: 1 week prior to next visit, Associated problem(s): Monoclonal gammopathy * (D47.2)</li></ul></span></div><div style=text-align:left"><span class=clinicalNoteMacroHighlighted id=[id number]=Orders parameters=LookBackDays:0,OrderType:Imaging,ListType:Bulleted" spantype=macro title=#Orders(LookBackDays:0,OrderType:Imaging,ListType:Bulleted )> </span></div><div style=text-align:left><span class=clinicalNoteMacroHighlighted id=[id number]" macroname=Orders parameters=LookBackDays:0,OrderType:Supplies,ListType:Bullet ed spantype=macro title=#Orders(LookBackDays:0,OrderType:Supplies,ListType:B ulleted)> </span></div><div style=text-align:left><span class=clinicalNoteMacroHighlighted id=[id number] macroname=RxOrders parameters=LookBackDays:0,Verbosity:Medium,ListType :Bulleted spantype=macro title=#RxOrders(LookBackDays:0,Verbosity:Medium,Lis tType:Bulleted)> </span></div><div style=text- align:left>
</div><div style=text-align:left>
</div><div style=text-align:left>
</div><div style="text- align:left>
</div><div style=text-align:left><strong>Roxi Herrera</strong></div><div style=text-align:left>
</div><div style=text- align:left>
</div><div style=text-align:left>Send copy of note to:</div><div style=text-align:left><span class=clinicalNoteMacroHighlighted id=[id number] macroname=NoteRecipients spantype=macro title=#NoteRecipients">Mahin Malloy MD (Referring)
[facility] [address] (Referring)</span>

</div><div style=text-align:left>
</div><div style=text-align:left>
</div>

<div><span class=eSignSignature>Electronically signed by Roxi TRAN 02/25/2025 10:23 EDT</span></div>

<div><span class=eSignSignature>Electronically signed by Roxi TRAN 02/25/2025 10:23 EST
Reviewed and electronically signed by Brigitte Acevedo MD 04/23/2025 14:04 EST</span></div></ body></html> * Dr. Bertrand Follow Up <html><head></head><body><div style=text-align:center><span class=clinicalNoteMacroHighlighted id=[id number] macroname =PracticeLetterhead spantype=macro title=#PracticeLetterhead><img src=data:image/jpeg;base64,/9j/4AAQSkZJRgABAAEAkACQAAD//eWbESTBDEHDWWSewd2ql9cx ZXMgSW5 hVqRSNM8eECH/6qVSGCXBWEhOEPoFAjnKMFwLPT2LBHvNWC4RHQ4YGS5RDT7NPU2YSQ1QRB7JQA5BSY2 RSO8PVD0WJC6MMC8XPJ2 PBR7MNSiQMskKJAoLXJ4KFikZEX3ZHI4STN8OSA4BHK3ZBH4XWO5PQB3GYY0CCN9VSC9JEG3VSN5QNR4 QTU0POZ8GHn/EAaIAAAE FAQEBAQEBAAAAAAAAAAABAgMEBQYHCAkKCwEAAwEBAQEBAQEBAQAAAAAAAAECAwQFBgcICQoLEAACAQM IZaSZSJPNWUMITZ8DVlJ IGBJOXkNkJNVWRIIQQfXANyXUdWfjXjUMHMTU5URoHcKDVVbSTazEJfPsCctkLcJ3Twb4ATdCXZJUA6p YCbYREQIHTXoaQ1TyOsp zkBvxyEV1d3f3tgUXqTgKzRgPcnEOtMmPpIcezlMvpebtvRkkrqM0qdh7wNm1ozWGvhjBlCkC8hHI0eb P8Udn0aAy8PPa1+jp6vH y8/T19vf4+piRYWGGNoXTMkPEVIPWEXAZgsSBZqQSCMRfUIYHPSYXGGBVHyXRHOATovFteJagE3MgHNZ x7TzUYZAwJuLKHThoYoy cDDx9Wll1BOvMZXUGT5bMZmNZWZQKOXbdL9AlLrziwVnshOT2r8a9slRIoXOOs5bKxaMWnEOOe4kCgtY qqBZvh2iuudJzrJQ3y4k 1saPJiVMLj1lAbqCJ5EAP95kY5yTp8QHd4+xp6oRj1RB61/j5+v/AABEIASQBuQMBEQACEQEDEQH/2gA MAwEAAhEDEQA/APsugAo NUQTkGpBVCLuEsCVVGqNyFUSXxKzKPWYdKnRLDDsV9WJJBSUYYDGXvZLQULRL/wAULTw/L/ZunRtqept wsEPzBD/31Mr6e4H8x9X 3UsM5+9N8kO7/AMC7R3MLZojayd9YD+NugPMmZwxzWZ7TgtAyl7vFng3ac7kllvax0Aqp5kLkpzn6zko Y04axC0+wGw7rKjEPJm6 Hqrg+y2Gjo99yfe8vRa8vOcq52rbngEKPmTTPNFZVYCGJNYXHYXBQPOOELFCNTOYMZHULMXTTVOUHTJC FABQAUAFABQAUAFABQAU MWMDUXTIJKUCNLELSLHQRXQGJDTAWSYDUZFMCKZ7hEhwG0px3TX1OzNhslJW9slRuHC2J1RPrvaEK1hy R74EMOq0XN9fIavmnbxB x9lv5qj2ilLuPNueIyv0Rh3u/Fmo+H0No7QW+WWCv5NEwI71p/fTgRL3jRkZ5Hf9UR7z8pYgwtC1zGTE 3Mr9Spo5T4SWALjmC7be 9qhvnjMPxGaPIGUOk0fEDU6RCwzvOf8ssg0Rd7IzR6vROc2DPEspRDRypiXT1OP6Yeayqj5KcWkewbhv f8ljvyg09ElIumdWDRt1 Neerf5wULM8Uc2VapSyQait3fq9WTZy4iNMW9Lec1Y5UjeaGTqQefdVw0lVnx7goG5NZMGZh4XBfHYSe GgglWazQrxTvwhfK53Tm GIUAFABQAUAFABQAUAFABQAUAFABQAUAFABQAUAFABQAUAFABQAUAFABQAUAFABQAUAFABQAUAFABQAU AFABQAUAFABQAUAFABQA UAFABQAUAFAHNeK/Y2t3SdRu3dBKyRVCy9vPA7SPBDe3pNy7vFxalCXu915UlMBm8O/kj4p3ieMs7Y/8 PdpaSCTHLr86BBXm2VEy jD30g6n9cs272OGrnpVu6lZJu+9O20ulWF8h8/xkm70fJT9G9tkJXlkq5g9DW+6lsgSMDsOhH+NbRw1K HmpxvvcoxYO5x9a4X+HP apbEz0CV1qLGEnXMmsCDDGFAC7BW7T1sPKAeoLKdq0Jbke5yGEekvpSasb2M2osLej1LJ78Qd6FmGW8M SU2k9thKpYQOsFtEQMHj 9Z4qfWT+7+F1q1Hll82xbuqnF4HOyq1UIhJ9KUKUQywcoUymXMTtvboAw81XoimcC77C8Xaxe5bTfUud 5U47AipV9jhXPFieIucf LJ2a6hiZ+ScnVoWgC57C5Do4jhdTr6hldk7R96CjALCQJYLHUTBKLLAVOZZBCVSDUAYDOIFIZKAJWHXL ABQAUAFABQAUAFABQAUA LLNDNQHVYHQAHMTRELOWXGDXHHCGEGVOCBAHRIFDQGBDCGHTCOHIjLRbp3q+JxuNBBixWm4kE1RPzOab on4nLULZ/zNCVAvqgp1K Hk61fC231qk0dGSRIQLt+D6fsz8FSGvd/RKBj3qbTU/5PVven7/tA5c9lUc8yJberoXwY3/8AIznW+zD edew8AcFMen4dsr1oKRZ E5zALJbYTCT9Fmpun3wh5pwihsIB95dCqfCWeW0HgaBdoW19sw/UyRpiLnohCIhrw3w+wANH4jr11dk1 bbHzeALrsq1purhKS8ag zTEkp5eI5HTHZnNZyCzT2Y1Al/QCnZu7e3Hlp8E6ShhCclgzxWMZeItRwpUK/JYDEj2F5i23oJINP/jW 6ybLfdS0vB6999WnUyhz DRR/Mt/C+6l0/6y0EyOKqjVHUcC4/7pD9jgi7YRxgFttyyZ04v6klUEUjCN1kc0tC5koK6xz6ikv7wGq 2NzFNz/jD7JI2klzE4pF 3FTDSMI14JqATJ4uD5OG/8SZpawucKqWYfCTqUUOiZNCbDk6mHpxy0ELRdmc4cK4c6TC6CtXU418EZ2/ ehOvGnejKA0NlGVSoN0g nOfbrWfs5/rXyU7A0XQFeKKU0u+fo7s3MCzzCY9kzw0jUy9BmMgX+Gq5Gk+ZNSurLy/xWq1VlchK50+3 fx4352g2xozFhvYz5l02 lTlV/6oqFZlcG70t+zhnHIpwBv0slAQ3QodDqMJK26YD8cOLW+ur9G7gwl4nZhtpSfafjm9XueACRWSY BQAUAFABQAUAFABQAUAF DFJTIFRKWMCYPLBKCHCPYKGUVORBUJREORZPEIYOMEOTEJHRIOHEFSMXNUCGLWSZVMAWWDMZg4rm9u0o ajW0uOM730dDsIIiTYRE 2Oq1n9PR5i9TZDvRSN0zzT30gatwhNzehUrGTJ3kvmSkBqR9R+Mk+3fYX0LYzThDTh1AEg11b0xvgOb/ 2nv5WBUM1SerAyd7TvHG hKkwU8lg7gPxR70g9ETQYrvdYQwwLnAZ/V6b/SS9mz4fawwjge+aX4I+zuL6nT9CvmupUNu11uF6ZlgI hI/bJR8A+9dz1w9+0rfe dP/Ta8viwA185tD/neVvQCi1QfamOfpBm+Fc19Kgj93eAvewuY5AqB0ayEvig5jjl6/iY2MlgzrZGXd2 87BJ6xL4EzRQZ9msO4Ii +llkMmcvhd7rm9nmXCGmmZtod5afQ0FnVUkA5jL5Med3N4jLPa5hF+/ZtAxbjEKLDjvIPG9jbceFj91c KlhyCsD9FE1127sQV/YY woq3kUHkDsGOyWm/LOJBD1L8aHYTOAjZC4yk7wRe2ik+7mC8fCy5vBzx63S9e41nqDwUGPuyWwS5Gkbb 8Lgua1yIhPdMN+PvPnpn wIZosjged7rGh7T/DdOe85e7pLiy7ysuuXFXuLsWApbc3yIAGLihffWwfrCbe7yDC4TVPUWjfzpNa082 i0UZuJd21k6i7Li+6O3A /lXlHGOoAKACgAoAKACgAoAKACgAoAKACgAoAKACgAoAKACgAoAKACgAoAKACgAoAKACgAoAKACgAoAK ACgAoAKACgAoAKACgAoA XLZjMaN2zcHR4HQeStzEA5l3HW/89dmCK9r33MI67MVjzlMf+nVnptcs3Dr0p4/NksCLXWt65Ngwreyf CP1GOdfgr6Dj45DMdm5q thVu0edIA6KZx9vHvTS3H48e8cMZ8XUacct74RiWg1Ot2pd4ve6G7AUf9KZREzcx5mjvhOqrl8N6fNlC mHinr1ceJECI9dclMZQ2 /7m91i3obW1Io29TP3ac/mQgUi74678+5QhHrJt/naKkmumOp8Pa33R6mrot6Iuv2Oe5KdsHsZ3Qu IIKujLkNcQjx6sLpMPX0 i4xzf1SIEb9QQQPGYuD1LjimBdbRZjuFh93piJrCZQEDT1ChbIuNW3OFYzvzzauUOm9t4GbNTE6hxMxM Jrui+Kbq1+r6LrTeosd6 mQFA+ARLHuYFWwMkr+Qx1uBdNT2sqo7mwxizZecCVJMmRiB0hW5DZV9rnE1hUYBYFyxvek97yWFNPPCA xcdMjARw49UpxWNyVR0g f+XYXU/XuybBX6ueW2rojfIBPNyRsGLFNN2dhW/89tdCwON1sqSWlu7FrFop53mz+n+TmU6x7XBbHpEE 5SRrpnKwFjNSlE4Kmpp6 e+SWKub5RJOI9pzyOT3SclpZ3RSj86h37mVGjtAdUFdudcTOPdKzU8y7UMJoKqwFh7q/eORgT8euBq4y Qlyl69gWVnTPEGuCyFOE 67uR+UVW9vflRtH6/d1ChKC3tnc1Nde+cBKyczN5iSjGtaHvy7NS6k59sHKDCCJ3ixOaILh73TNqSjPU 76jGGN6qHnxJVnm9/6Sp ZsDHG4PZ6akJ4tmqZDn9/k6cVzpG2Iyu6jNApCDgZtcb5qUw3OR8m6FO55aUVvpm3WgHa96+hiQ0jqcx rrzwCvDkjnIyj3fKWTyD ApvhZ6VGs00isUp5gIN0ed77L7pvXvmBL35OYAkThrfPVPISG89oxhO7RbSqm1qf7VcFYkUGINgJ47H2 psLGue1087ry3fmBGzeM ZgWmcVcuBucfEVaqav9Pgt5OpA1A3xQq0sp1+6u4h26bpyN8OYZeA1iWuLbjul5AATVhlnNtj7IHHLNo 7x999ny+I1YwAd5C/Q02 1TeapIFI7mLjGEQ86Vp5rqHs8y9/EMY6QNmNbamDI/baHLRRHGb6ACzgl7Xd6jTdOx5uIlJzLLQSnOhS KACgAoAKACgAoAKACgAo FJILdQzADIYqVhMBKFgRhDYWQvDxOGAIlEcJSRTuGrV4x2oto+VdCzvT9ywvUJqQnANXAEz6ohNpJ9LO eOVsyXb9AXfSo6+Z007S h2j1T3kv2glD3aMb6kzIIEhSwstTCYqnzqYsy2Lpefbs1ymBombJ9Od1zR2z1h+Cptkv1uBtQDltc9IY 7a/px0v58ugdG5QkBgyk 8Vbl16wfP8zKB1tr3ouc5eZW8gHxIqlabLHiyL5ACAhJbb72y3vSlPhfWkRzWfXnBucA/Xztgl3GWyuS B9TtC4YfTDNawfDwFRyw aGwcdXXhO54bK7Il9lbRukKeuP1Ir96dI6tgL/lZCLLqrJPNjvFE1za0L3jsf7xCKe1DuNSTX7KTtO6B /DTXt57BvWyklqODOoQ5 qijU8ePmx8trob6eqzp1dqc2lfK1Gdga5GoOqAY2fi/5GGBvRS3mPSUdyegDRcDesm1cjakMY8wlUJpW KaOAkbui4s5FcRAg0ufo +cpUISKnu0p3LfU9MbQOaNZMYfHclJsiL7tLmWriQC33SW7OGXRmpLvyDog2Lo3hs+pBIwZAu9aPsKT6 Pu8Gbp5CUnCZl6j9PCpB 6q+3BLq26iUBxUAcyxbfNm2CU2vAPS1qHNamPCdM3POdontHGnu6FxQQABprjQWHBRrAXgZ4MqKzwXNO vmkn6K/5gpRjtrdp+i/z RkP8EYsxyFELMRHRUkRq074wPBFEXDW9su76QPtzIar4Q4LTvF04zym39yxLduIqbv/Go9mHnv5mb31B Mom81afF5B30rucDGWlX wHIRaUtUiam8kavt4txqkdGh22TK8mrA8Ox0oMBtrgP+6mX0r6eDyJCTS2rPXKsduAIWEbiUen+oFYOX LT1+NNwv/NKpjo5bQ32i /gcvavjWdciqZ3sD2xlX0tKY696G8Tl6FnHZqEKZOnS1tbUL3Hqnssfb7+FKQ3FdmOHv4ncBmW81g+aO wWVPEUEu6YK8ADigpn13 x3781DjpiUeF918lz8i4O5Zl2a4dZ7cag/bRarjrEBE9mNP/OTFFlWNIZ1l7WY022zHB10oVrumh6WBA v7S0nHUL8n9qn1Jtie5r QhVg1U2L/0+45JaJwVWu7U1IM40UQB4jV8rv+Oi83KN04l7mGZzUZf7rTgzux/iQXn0Bz1/zL+n6dqsG cJ8MYoDzgqttcqRr+XKD mW9EzW6d48q/ILHTQDYFMgmsg0s/sUgBKem6wlRyiqgUc98FnfrvIpA1HUpQIoVPDwiWQGtIBd0g8KmF NSnGXOtHzO+g5H6N7FKb I88D0p79iasT0Tr8EVb4NOrieOl3BWNq1GFU4SBZXIEOIBbh7QtgQsoctV12g5/LtEVI1k/1CoPBY0RP UDLi4ibwc1r/NjuzOHuI EOMEcVp2jTdleqm4KAieVTTEjPjjHU9j74lDvB74db4kCk0bcMjssJki9MFnLWgUkE6XeZNGjGlo5i0t zkzoT5VHi9vKLPFDXIDY AUGOSKQRYTOCBAIGCMBEJIYDYLJTCIZIZOFTTPYDJCTTTGNZSMVXQJCTBZZWSGGIXLHnzX7Tcj19ARCI VWDQcRZ9DK39abrNQ08F 4tJoes/XnXvrBTeCdLsy5kqG/qaN9Yghye4xr4JcM58PcYIE3dgGKM+w366tzt6RuzeA9nsClpVqhhZp QOLEDHxIFBEnqd3muf9V IOcjiu/RKAH3iIt+5aa44nvTbT+Dbb9p7Ll8MHuVTihGHivYPWcfCwPdNP7AGk6WOmSKcVstohJWks5H OalOTdmVdT+R6s7pk8Rx i0kdh3WaNOIa+80lWYrQSTDIFCyEVZlxKw4+6znNngju6B/jibTu2D3HAJur3vGBe+0dEqG0E5lM5YM+ 9/WipWio+wkuR6gkS/gB WwY5Kob45FpiFQawBbJEBNiEqTWuTAIKJIUWAc9ulTi4R9VJcR2w11uPfP+8CVAxlRrURusBK9U5kdN3 eu4yPd6zifHDnxSLHy3p gGu0YjMwqcBTPTC2RerrgzLULSd/kXqkQUAHSgAoAKACgAoAOlABQAUAFABQAUAFABQAUAFABQAUAFAB QAUAFABQAUAFABQAUAFA SEOKCGTBMICLUFJPKQOXNFAXNWQEXCIAwDrHV2LgZzSkpZ1B/l9AH12UsR2Ny+LMMpxHQlaFpG9C+GkY v/Z1CLPKKfR0PVM6+sVf 87F9PvnlFNWt2tosW7TFKNM9YEw4AHgvphoHElskn4BayumIVCSAQRBKBEMYWLIKQYWIEJCABBBHNKCL AUAFABQAUAFABQAUAFAB QAUAFABQAUAFABQAUAFABQAUAFABQAUAFABQAUAFABQAUAFABQAUAFABQAUAFABQAUAFABQAUAFABQAU AFABQAUAFABQAUAFABQA PCUPCZUXFGLGWGRRFBRLBUAUHLETXNDDHKABVEPVSENUSAEMZKLYJPE4o775uI37FDbys76wU1zeOpNM 88EqmxSyDDiSPMjRb700 4HNAGO/aU0OBrBA72WaJq+8CknmDZof3xBjNGRxUQdVsGfCrGwQLKTvKFlzsakgo7BfC3vpuyT+SJSSA 1vohKvRVyfmL9D55WViF 5820OGb9RU3J9RKB8qymZId7yCBSNZhORqKBX5T6VvG8Z96KvThXyM3x1ETnDWBlFh7vMoULyl+QN03f DqSRNccJvNUSPaVft84B eVFB6UtbZNlMINgFL46oonafdYmu2kHC7XbLQ0sLCxYOMNrRWtqwggKR+08U6JRnyvkqyhevQC0hnwj+ sNkF3iv6S4sY1cHfDE0m hFrEtzvqxIaGoljQyVl7freqAgIeteUFHQqcbhQoNMCE0wKU5eEmdTPH8ItLAJXXoAaMigvUQrxtMaS0 uqvrXZQIkGs3xUJ6JZ/E JkX2vKKP4OpQEeVeeUPbAKGisPGsrmujzWtr7aiNZJv74j2oxbTH3ISXHYLEDLEQUEDXJYAUEYokyxs+ e7O1ktEczerNvL4N0jiI gxIiAoRDJvfk9Te1vhRXvSZFe3PuP9npv3IIEBgUX4VJGj1PJxQwYkhWrgwTVjmbOBoLwtKYAQEXdT0w 3avWWJwycTPnoznp41vY fcZ7JlYA514DIehXnqPEFUMXa8kjmw7BuSyJVBs7znFZbIbiCtZqJt1xj4vkPI/e6KpnYQIyozh10c0F Z1gNlyQkh73HKJDLwzAo d4reFfEbx2SHxRYjivTyAovUtMXusP2btRIKjmxX5BY1z/sBKEkilBjqdq2LMKSZp77M0SuGs55PiYCI vIHXb5LHUdxlozkuH13q Jb59uXopuC+z9zzcpyVXb40cGNpKZ+0dfMS2N1ar1XhaGJsufFMfz5u64HCkvXIJQVuktGDFO7GQ4YUa PdnnBxjOcHGcGgDEvPiF djrv94FJQk85pRCiMs9FqmJKqlOHyj1E2TwDunkJVQRTOxVCoKLd375kbHAEoOh2tKz1U94+bHPHUYoA R/ATcapHY31dzu4zaFT5 HUl0HzO+u10zgzHbsnSFlx+Q1A329NmYAJWSQYM0ZCUPWJNExW7dE1BbYRtKZUP4lZ5cC8k4TOHfv/wC la4nnsuOUoTqxUcsff+W GXzssMRHJ5WY9ARQqHj/j6ozeU1lAABS8HJgJNF4ekSCg4Ejv7mrN4JFXFMeB/B2t1xc2DYpWVRrPsUg wbmvkTcGYV9QU25cIzNw 5HagDoKACgAoADxQByfifxlY+CVP70SjENoGJT8mwmd2lNaFiNOnS1f6Hacx2mQXAJLb/XYs4SsJa5kq DZscqRJpzU9dgloioOh0 chT56I8FVs5taE2yuPG5+Aqk2aJew+1g4hgokxOz/n2/dVgcbjMxRlyoZ4hndZryVL4rO9Lx2vOWyaII Wpy93nBhuziUL6qQbDoG wVh2tBcrzTilWHiT6wP5hndJf5zLifkBb64zx6eyFDAtWeWQJbPjtZpBAXArVpBqUmpcF1mNCXxNyiTv PqrgGFgAdEso0GLnEzGp n5tCwxTJaEJExbR+gOJVucMWEtVYTObd5vvEaBBG1m8qmewn3fhT01oCdTbbYL4V2dx8WH96XYwJQQIt KXQctdhyBSYRptYw9YaL E0MaZpk7A/SCOTT+pkYrSHibJmzvJZXwiWPxkcFPUkQ7PLBo7Zqf/hiiDKoxSzRmNtsHhGLs2hGKPTGqxvV +7LPdCLF4XbTV+IjP/Z0 paLjw3t3DVWfYiIrSqKLqyherNvG9ZMy5RZQCRNUHNGH8z3d+H0Xiy/nb72B1do4zaV+sa6eOCGQKU5z ElTahSneEmQ8MdVuHsJa GujN0lQGn1W3g4VtouiLLmFQskzXUSdooifjWFMQx2GMC1pizpV5W+Kvk4Kk5Ey7Z+0+VnGkCScXZT0q CKENtjiU/KMCGDNo1bJm e/QwS53W0MtWQP9zLewr8CvtCsrVNi+yhM73AOhp9NLBJKkqU9nH6cQfkrT5BTaOdzdLUZJeh+Ac7z5r USE5EYEFpPfMFIMasFn2 TASe8gPokOrHWWoV1JSDSrEpZCnLcxpzKQxZLaESbKZanHz+VrHl5VcE90ribD1im4hMsGYcxqbBOfo5 plp5djl6Z+8PJFBnn8D9 EEaF0yHmIH5CtCldO9jMLpuG1EWoYvcoJAJstDDCsAORCGPvGtDbhv4jS5UHdrFOxO7Wh+1l5rgonmCQ TSsYpr66NTgVx3j1UE75 AXu7R7ggYrrJyW9IWSwQCAAxFjlhy3ezO7KPRWDZPdpEXRNM9Lg/wo/qd7P7vtORdbFWfT0pBcdDF1wA Iqkaswx+23NEdc1070Vw vDAMXUILUMNUXGBZHVTAAOvMsg4rXqQHqZ/WasOINC4J5INY1yirhcwEgzmZ0RmZNZvmIwXluRKGywb7 1C8ur+6vNRjnbUEEcTNZ u351WCANNTyuswChIfqGFFBcZd3cOGwMg2ix9Jlq8Gtgm741LONOWTJS1h3psGedaacQLgYWZsJWasFJ RJZ6j6LStfyVz5ZNLoB7 FjkVgU7kR1XkN9iYaGAPt/iUDGOvp4AoZssh4JGUGpoY3D9745Xk6uCG9IkzhtgbzUVNLpJiwAWR8OV6 PxMP4F0vXNvrJu7T3yX/ nlsylPdRLmGX15k89mIkRmhl5WPP2uEgf/bVLrxPmLGY2jJRPOJYgRcGPYYBjz0ooYFCaI1K8tQlqKzm 1HNoUp3l1V2wN0f+0BpI y9VWM4Ga7GFn8e8n6ttGOv8v4Zyc7cFg6SSbJ7Se8s55L8iHNJbB2Y4nCkvPoxBYeHVyaKuDHTbcXSCF GUx2c2Iq6J052x+1LCss bdAUR8Q1XKrXNKH89bfVIlMbSCXWeNPWXKfDVkCQPozkW8qSytYIqWrNa6g4B8dqJAY+85Hyp1PZjO4t 37XPW9t0Vq9BBWX6ps8X hwHydlFgW1I447gbSdhvNAHi4XECXbqLiziOQPW7I4V1jH2NGYIy3qYKrnM07oOhJ+6PYr7z2MZKgb3i 00ynKMOn4a3LuG5adXFm CO7XUR+6tkjmb+3J35UZ84bbHWthoIMBkZmjXXCPb1EU0l103R9w+84HvMQyWcOtiTMJA3GEy+aWKGNG vZnaMEfdthT5Uqp9Dtrl 13LGIl7bgdrR/cANoqhSmtq2qGrNOFk69j2zemEQ3xQGJQnYHJZG+NwV738vSCD8yMgpQW/Inf5GJClg sbLdAwUyqDXVW4kf8VJn mvJDPQ55Nx/wxdg7qY8z88gexzvq4svOm5KRBcUTLXfpGcMOwqYG3TaNKZXgXEJyju9n2C2uU2lr5Ssl ymZ7wgiepvsQgufaUM9t f0ZwcEBZrCRk/MWtJ4v3EeoFC9DTAlmF4IdSiTR0ZiLkOuxWFUzSkHzsKqGDAoEoh+KZvXcU7etMJygg sY5/OjEtxIbCVpomiuSw d4CmqpK0tsmsuAmCIaS5LcevNKaMc2hbs0mebhpZrZI6N9ndzxFOyAZrJFqPOwLQESGnWye5HBxgZiN4 jjWUkfor1Ycxb2NItjUn asbrnox2t48wiZKFP/wAO/IlVu7cKE9twp1E4B46uXWY2loDvCpMPM6vsbVXvgUsHJTBt+FaQ5Pv7ZKe W91HANcrUPTekRRIbCrD uFhbHlIQgHrmgDUv/NEZz7jBeQAqzYv+hmnYZwAtX42fWrzIxK9+6eJ9k0LPOg4gm4O4Isl2I4Wd6XD9 ZZkuJL+5+2iX8Uc03SsD ijVmAvTX23nSdminkcjAemIEjFaCDQNiXkEban11i7xQoniQaAXBapufEoKAjpU2SgS0e5ghzp8JZyMt DlxQAl/99ubWQMBC1FMg 0KS8UbcDNUuOHWUWrcqksfprZ2Zt5iKlw/QMg0jsKhXaSW8yRCLjfGklWEAxH2aL/eyo29X+ZoMTP1Wa GWowhmue8ofplkci8acS sCf7zZIH11uNtxLXuxHdqZQUcKvcCgCZMA3c6bl1qK4iF2luOWUzITRUG06Q9+9ZW5rSERFvuUPyBFm8 CM+FFUJU6N3B8kh2Ic2f CbHRamb073k67ypPSBbZWM85GEUmN9JxnefBd9IUoZwCEFCsMxPRMYqEpKZMCzAwCTKGoZpva/qs2m3M DMcYMem71flU7cCJuvh0 s9KztgldEQSH+iPS49ju1SKBPhaM8tSEzNtz5p+0Yip0pVwkFPnGrbctpMeyMmx3KygFg2/X8z2qujr7 X3W7yCM0rQrVOEVGAUDM lGz04ZhLH7RYCC35tA4/IAgrAKadiWw41fIabNUhDxAiuJzWLVsIw7GnDajUnjdFFBVLvDw2b+IdTimu Lz7L2zy1MJXmuQy4SivM GJozPAs04DIXSvkw7f6jab8OQL/HS391k8UEtIt0jknxpnzF1kgpVLcUuV6fTL4tC3vlwb0jRD4XITBJ UAFABQAUAFABQAUAFABQ JLWEXSdCTJbcUsPee6UUhEjZgD0zThwT7IGiZhT8/HgkaGQE736zSrsifsOlTZ8mqu7fyXyPoy46s3zM dHHBALsfi2A3sITzmUEF F+YUAZK+MlNgC6Y9mO6ubWP/BWwUdBYiUxggu6D1udNQS2jmO7y93lVeRKL26yQz4d6nzNItjaV1toFA XSqtsBAcGoBcWG2eWhNY PlE5BxJWn80G6g19dIJPzrh0zZVfiXdOYPT++9xTlCOFf7V8tIXeogfHKVSh/OH3oJsx+9ilVLkW3GMx lADuEuJFUkKFUfKABgAY VcXP01ATPHDUSTIKUVHEUPUNNUIGXK0a8oq0L4nrGPznlOTVtgNES4KWfSHBxUAUWYLEQAT9ZqAk93ah uAZEdVjwxMjgImVkMRBd rPEwrPTpLtiPyKxy70nBcSN8LFWh7XKbOLXw+UVGHrKuijB7NeNfY/LF8mg5GexNrHCjTRLuPWRhh4nO WJNdNhgWMGfVNVo9wC4Y 88Byw6U6QBACRvfEyBY2REVDYv2hx1CXJAA3kc4y8J1atFGplTQPBTbZ55UmQXZ9keXMBJ4WJBOOj4B6 xPJ2qrXdeCWQuDR2YlIV DDBUNYgJg34DYnFuvHhsAD7O2exPpJSs+xo2nt6Kv0V6z4e8rByzdcUhfcTp7mzdIqwx3ho58MtpQwmI AY+YDaQduSDjPUUARSeL 6XtvjvCq3yfQ0jBIabdvqJGeMxyOkgxoH6YlAdnpUuhYY14ASVmlmFuZsoidESokZ8mSibNzBFYBTMKU Pru3QtUaT4mpz32yJmWY Yy75stmRGr2uxpCnc5RdhT4bRFXZUKBFzDlQGVYLHa0mPSJTji+GrkCtDtefAyolpnREdCM17Y4jHjwZ 4jste3/L0UcNOqW7oWcY +zLfRRQBwhvhhlWHANNaJSNVFDVQKGRFGIdpewNwy9ln9u91wbR3tLmHpzTAy0wjlVHgspccQMDZomIY UZlgSG0uqLAeVFYfXxsY g9sjM6IiMGnrriP/M0DE8Dh6td0YQxRRH165RQtkGy6Hv1UlvOhhUIQt0WfFr2VLc0h9e6SPpBhsGaHa tYREdKBZHyvBXhqJa0ll 9vG3JQaP6UzLQvA4T9CY5YYqyf4BjpTPmv27ICxMkHv8KRI6ZMlFSsJkuYwJr+K0yXgNML/LfcWAA4/v FYMda7b7+503+5ois4bf YwJokPK04WfJ/cW+VRx4LaYADbXv51i6ImHCl6tC8lXZat4vOBMcqcScwTMII5slvZVrwdVg/AMJbYBr iHKLmcx2aQxA5cEMsDKV iv48GLFHPX4ZaFCs+M4AppRE9LQLqIDqcs3urGjJdQa9WXZog1m+ANwIyDmgDsFYEZHSgBaACgAoAKAC mDhJWOBfXrZ02U/EFhoz Xt2p6pu5TLtDVAlZBG+GelgUax9ipgfOIPw1MmA1osyJjbqSRUirtTThkt6cDbef7KIbVVPURRD/FOka zJBXXKSq33kLoOckKPV0 Agaha2Y2HIBPe8EcLM3j1bmoNIC4lgugziQXrFM9VAkLWIZdvE0UXLuzikAl3r/bWNvJqEhHkwoXeRRv +ISqj6zzdyIpBheNHu9g 2e7qMIrplRvmRBl5PxFIoH7uODj0Aag3BvQMkNKzWMrmV0z6rLk9VVI3sqKrDBhiT9fecJ4ABOFnHOD7 sdYUq5TeJpDiIicr4RTr yMzXCqYnEb+A3jNMYNGd0V6y+oKdM0af7HPVXgOiJyRIGICjUjpJ6iTfQUW4ydKSHXBZUfWJyDnCEJ4S IVFb3J0mZyI9OZOb4IAh tlUE+PZduVb9D1Z65G3Ds5Mb0IOGxaGrATHIoPzEYPLW8mhkIkEpJ2tJ3fcKoNoXFAqEBuGQt3KT3K3F P2uQQaMocYXokkoOcTBL KR2glGHk/kQkYUODl7wiyJ6FJD8dJdMrSyxdgNJ+SrVnTKWqrY5mtOFSztXiS1hpyi6OB4xZbq+8Mx3F SwjHX5ADH8KBpfQcj38n PgBBTKJG6yUThCaQ94CGRSuxtkvmVeZaCuHkULWjS4uo2YlPMQxepYPzxm5CoVLoV15uQab10Jlqgq9O GhoiYr5ucYW9ioT3121c uoCyEwkSNN+0VIMrKyq3BRMYxMVxsWRKKAW9OT+enb1S6aeYr5IBTZB3FYnkxKuimdBOdUuqt39TMG0U LUWgE6FBoOHL8eQEUXDd hWGN/ljUz+XwGvjJnkYRF4YIGG0v+V2scgE/iXwI+ujcZQTyRh2kFwS6iEkuAYdnRMZAsiBWPv8CPWbz MPmUGgC/fmYjV45gYFut OB7E2tQsipjuybTdbnidH7gfTBjBtjbNYlPrrKDy+4mAwxKAnj0sd4+0UlFQdkkJDbKVOFd7ZKOOeVoI 5QqsmNAUWN9cpfeQPlBb DLfSXjXbySiZUyVaNEjeGRJohFDtRSr/YC0BUqewYGzta9Vd0xsMtpKsRInOzB2NSnL7nSPxNTyMzZcB MxUUsqGchCNAv0V1HRkJ 1n0F9Mgeoon8PNbCKiNHulFQvCKHvWC9bXN6nAoFgZK6ETNXDPWNREDXNOus2v7CP+QB4el0wNQp4EYG x3Aiziorm+QCJ0Kw2IHZ FAHFw/Ev5IDWLp9ikFPW3D32yaBgA86h12eF8S9777H6PfZtwEvYSqct3mWQSMJFLfRl0zH6eBxr3Xq7 v0nu7ZBHdJ5vJPTh8HLQ IFjzdZcHSRXKoUpYg4x1mkBt0JIbJdmea9R4b3DtqtvUc8wosFeojTvKlc3ioqXVox2g0DtnZI/mbgXI C1bXQrSqIc5/wDHgDV1Y BysIC1JilKA86t1dWP/CwPmIawnUXcE3wzpKzbWJCpL+I86A8M8yuQydFco/ElGvv1piIIWFz8aVDKbj EdCpikY7gPgIyAmJzhj9 nyhDJiXJN7rV9Fq6uRGZ2ZxgOe2BocWUgnE+AWvujWEBevHQ42JC7do3LbeEDZRdCDzK0ntXc/PskEbR g/KAWJLfLyCALc+ENWmj CwunRp7rzUG/VpOFztYJ6kiFthtZPQNSVfQHqwLWjXtU7CKxUDMv35lh8acZD+wLNS3hGZ6OSFRIONYB QAUAFAHF+RzKbug1lw2q TGBlxshtHDV5zdobwjzzBPaQS1S4BNlf+3OCNztTM61oIN5rfxDL68JGPiRGR6cDD47GTFdVJceL9PFi YGgCA/J2kv6Opk02IxLb FsrwDFfMAhiTNWwmY8uP45xMkSEQUmY9sFF659T0K1vsf7BOPfZ4zDqYLmPL4mPy9b9I3QFpbRoeeYL5 +i1i4NZ0rbcikIBbale9 mWly0ROLmFtiPkBjHJrkxwtFGyRttL4xyZSphn4dMBvUT3mUSdqQLPc9RXX9xccIVHlPL+L1HIXDDThi +V9APK0qQ9K8eXc/dTSy sMRghK6MdskSgrZHj4vXbRgwDE3mnQJEsiCF1uh44H4lvmtMUNknraawTgLyEqj8EHsYS72rRioY4wWQ mfVzcbN57WlT6p6v1N5l coL4XFAWjCJXMuQM3HGKG6ILS2cluTBJaBmXt5ExG3kk0xmhj1nx8LCPPlDYGbiyYUDWtB0pNXcDvzGk eyVgPFLW7CXwLHJVNNKS TOEOXvnJdmlvz6kh27hpj9LvYxAjlIIMEd4Og6gFZLH3NwCoyT+M44MnBRnL+PrqSNLuWJUWIXRaKJgw dgFn1mW7HgKX5orNpCxt wCzqFJBMrMuMwxgSgMa8crjXXnUXnLLZjqAETG0/ZGuZVM0AVaCTYjos+pmpfZEbQRArVULFWXxSle26 McyclJgy7Ph0lhbT8PIn gC1b+Ea783sDWD7atqsrDFGO2mUcqAnpe1KE6dQdRa2J8Ksas8zLv992wg0ztNkELueSvGs05RlYHFii UqsaiKJs0hamtxhAghXm 3vKPdq6FSBTLadAD2jbOjvNMusyLxBBXwaIUbpuSRyoBmOkNut9S0rIm88HWMVjcQJ0fCY8v3gZwni7S bCORIoHlVfIEiFyqvtYr yRIZGg0QF0wg6NydhAd9DDNcQdpcVy05ZOSsijjqRukSnQb+KNGwkOYcqYQMEZRh0E7z7IsgMOk7pcuH AMsdZ3afvkxyaW+ey5Ty JDGIKi0GeGIFXi+kRCPxJI06dSGtx2gPPZDy5bSm1PUnAMiSBlg7NhQnZwamADdUiEiVUtRLvvv42cg4 9of73NArETs3DRc3SacZ +MvSNtGZHddZqK0dPnNeuoMWQaxKcambmbx/bCq8kt39UXJBRKRfVFYCyicrJKBgwZBOPlhAnv6knxiE 8znCw1D8GlDFAcxal13K hUeSb6idawUAGAa+gLM47MzsUr+nKJY4mrVR8rbWNmElDNYMpCaE2ovPOwhIxRGRN0JAYURMKZJEQcio Dm4v7qkvq9u0lvtcXScV iM+tBeZLmSglQ8gJZxNYL484EAta14ig8TrdHJVTil9kyFZ84FkL3lZJu7qdSwm5xVbX0MEFUF5xkWa4 ePLRVoemcNHUPY1sgOc0 z0xZsJJW3FnTJ6PI4LatnTBUvgdrqD0zBNprx7SWoexCRnp9DIRxRFFeYWZE4ckcB5TkBIqs/R29jOgd M9jm4PNcmxGkBga5zubI kwBMCfPJ6c5fDcTTQCkVlUWr/CI5jU9xZDy/cgwhFDPWVhaV8NrCws0JmVBKCbgMRIOi5EfQwewmoVOB Z4Ris7luuDE7ycOxgvlN JDi3bPOZlHoyiZkPbTWZn0qA6wzTkCVXP54LZdUOqZUKRhHLbwPFIgFSL4xZacFYKCKrVpIZ0E/utYbS fJ7x5AVu4tkxPCeE/Z7V 9LdBaRY4jg+oSNIvuzqRsIcBOQo87BSOqwL9DoU2hhgfCtQQ4MxpL2QXdEomr2YC0mZJE4RdlXSMXGhl AQWz9BGkTXBbyuAGREby KrWYb8LDIQ1eLni2U1FQU9NXqBAriF8hyVnE+4dcXRurR4uOEHPebG2eGL+z1hbfMioMogLB3FnyBPTx QlOeVE1DMNwRISMLXY9D G++zvIMj/ZFJYVDL045TviMdlYqOCLnblOTwTrjhwU+nXA0p7Y45YCvMh4JBXLnzs0rfTQjwQQXJ+H9a wwLiaoBxt7mgSBnFsI/k tLsDzKRPybHELeYk8iThSSt2NZrVYGXKKXVNSqECL3UJ4ozlIixcl5Hp7BETMLOx1Nbxl98Ss/wAgC4I 3ISULZIv866OMBtEwTVg Fjs5cXcOQm+KDY8QZpfstNmFpmQZSMUZ7+OP9lPQoP3cjnBRsotCLhL96jScMYgErBFjRpycwmhaAVCC BlFg8oApb/ahHEbPybDz Zmg6J5piq5sPO7UV5dqZI9CrPsFwszLGPikmUjdqIV8JDE8PzJLs+45l1H79b1+Q+MU679DpTlHjWo7N FVNvShCAv18CdM6nYJHO vzMUJ4oSvEgNbo670J18wnHsHUZ3KaqgqNpLgV8Wyf4YP88oO9lplVjBhQMOQkSr02IxS6mmJBybfCnl SC4p3xbAaADm3hqkjHek 5ThbZZZ1yQXIeUDjYZDFeFHhiOdCv4B32TJwS7hPzI3xgIFNKUABQ5NuTvksxo6ONonDYSqwiaCxb2kS LGe0vw2frcNkRrA5un1C eJ5V5gBVpZ4ClGbucC3R/RGRWLUCORMZLfIG3T3V1E34jNZVUo9ljDYW0b9AebCF6aLVl4A9DF1fTTWK LHCURrqyFzX2xLP+aS+j 0tUDSMFMA0lkMTQrHMe6mMJegk/eLsLEDmgDJu/GGqW/nSwz+TQC0bWrgng/0BYLqOGKXkApuicsxnJV m/rH2WcM0H8M60SvcB6s rqO+i8sso7x4hOjyVUec247eoBATiteZUkkp2Z/ehOY5UP7c88mZPG/YZf84BKjTE0l4whqF/ygOvmg/ AKFFGKEGsHIW9ptfGMl2 CJgP048zq6y/4AiQ8YxHktCJcv3sHC+qUJemvTHklcXHOzYm4kZGPPtSYvqNlsYgqKZTK1MgsL63j7fI uvdTvEGz2U8UFYvFav1q pGKLh8yylWd5NFpvGtqKNPL8c0Mhy0FIyxMT+eRtPQReZndt2+LWVk477uW39qgZKJrH5hXuns9AEGPD U0KTXFlj7egFcLLXTOEH cV9KuEcIVYhsEZwMoWlnJZVcf3mLxUYODua4EOOIGNGzr2GqQJEWq4/4sgw2BoAEJajbGqMwrKuIzXDE MIHRBE+X3oI/YRCm1qKw EUqj6ZXe0Md0vKn5kR5SDAJ+5X9pfmB46C+7rvnHrvWL8afQ6+7uvb9L4z7eQXvAyQHBiUTo7Q7QzBEG uc5dZPHTFx8/q8B49mMe fLEE9htEkdiN/TWXvGqycAAZEhOygWRE7pyLDRV23DDSLbLNfT2riDGPIKDJJdYF2XxCledNQSBKzYR8 sKOH1Fpw1PxZDnUA5aX3 xp03aNWJs450kPiYP3eKNHprYHlzEXNGjsjTiZbR2tMvMOP8UV3HX2VJ72m3bhkeOmcYFMYKarRI9IeI mo30GVGRAHGWNZJPKRTa a9p+cKeYPu6zvRPGqeNUgoEzXaWZMSsIidQ2OZF9GfSBcyyacCAXlRWmBSSNSrQmGv/Xh8sDYTpfTw0O gxVXNRa2DTAXES9VtRlI fK3yk/kB1c1WXAbS1zPTCRWSG1Hi6avSn1XPvzCnG8yo90avMh4TXOJYAD+EEAH6X4VcE9v+dbWYBpMF g+BTzzGgIlBq9pSYVrye 3pusqlxZ+CNA8FREMZEUUE6kp2Lu+OWnnAQ864fVpe/A0EOHGlOHQ6E7ULkTXuiui6xUExHmGQCsLGZY MhB11KDLq3K6l8rRCDMP B43f3i85gJYPtVg1GIyzwvBhNcwlfLDqLEg5B27qratAuCF8eEGQRwOSrWP83Lgni4uUHbLt8YUWvJDX cu4j3KPzMk138W3bDlbR AXShnU5IiUQiFlmADne5TMCinEC//KMqUouRpGRKXxjKSrYAdoRVBBPvmGe1ReltdWjULHzJDUuDLtHD +5oBtXijpdUF4ePNyuPb n8NOVLGZQ254DAtmo1Z2n/P2+fj5v+HJzOW2EnaM+6j/c/wCr+Rf3f+9k3x2HqTYELzoeOM2ULgiMAQX ZVAZyOhYgZbHbOaAJqAC mAkEYMW9AJZf48f+kNEl8+GAZlXmVaKRGpjWkPJ4nlfIFDWQM4mlRU0ZfiEUKzA3uOLHBERhkIXhyLcf XEOTl22FSsmTjJinuwwe FToWbLLHQnodDRGoEtGKg3O67SVfcsNCvl4wbkU35mZGlAEK3WglJfqHCu++ECQASAXh4dCyX3a1Vmi3 DZWitmGDA9mW+TJCkbYs uSBcAlnVDvoJXOYf62WZO4oXvhCRQjgGpYhKeaEDdIcDLTDz7pOJKLmgBDioFjHkxBsFacuNsGsrnltA BzmSRelKxbPBMj2JsseL z3dSAxRbMu3dJrfh4Ktq0XqzHEm2tHe4DbB09lQOp1MubwL5ELWbLlYv1DpeuCF7IRMNXTM4yML9wBjE j40Ca1kAECNhlhl7MjtJ AN8UKDVz3eLuSnQKPVGJI6aRJkkAssUpMcXQqEAJ34TYqmd9VmYFhairVXD9BGqjU7s3HgBA4YOsJeVA YNpJ1DC3uftxaGAnRmem PG9b4CiXr+59nSYOyMx1dSD6shQ80ayUCOKiEUMkPYkHQHVB6iyAhIRcLRQwSqvAs46iZln53Iz0pQJN lEL9aJPBAUFUdfONP4IU Db80HQVDW9GOJ0clj1kfF7fF2WFlFASIVXJIoNS2fKULVkIBGF5qk7JSAETt4SAOkRaCyrT5c7CMY0VV x40HkamKcWfqGOQdxYEw W3JlwD3yzGf12Sbv3GbiXFqBCfw7DMjXBq5dGANg1nWzFcdLnn3NLz7KXYlyA5RGDgw0rrKAVCASeBfF rxyTW/lySXMSxjzJcEwj pAbnmrxrKfCEDWnJJmeMcgGrrJa6b6X1NfDL3s3WZTBbJwOVR4j6EEvQcRSF6iBJRGK6Yu2YjtLzZx6t sD3msYaw9j6x9JILuo+V tvQAVl3InSvjFGYEBV6B9L2D5denaM/FK5dFsxSa3vNMHc5Dy+h5CqBoFdXYFaIPGKLQJcEd3hrmG8YU Yj/Vl4FrqFKR6jpIxTXA lPvkHWDwvMKOGMJUtAIp4UatkliZk5jIv4iZBGgWP5IXa1qBivxWLEinWTdUDUPYToaEsyAa3BMmQVU1 r9UYx1w0gvl2MiRSlNQk 6VEHHWBLCY2iMTLlTFn+l+DqxZGBhrta7di6cigTPMPUzuRVQhWCiRMmwqL5VfGYpPtvqnVzNOZMLFEH ABQAUAFABQAUAchqvhca wy6Zyhlib68kIMPnkviigPZS4i0JCuNXMDX6EFVtAHcgcCuCyrzRW3LSm2yEPL6euFm7Rjcao3SioFAR jDO48z+OGqeBW3Gi3wqW iY7t2FGJhh1Jl0vhaIf4WRROvnrHaVcWvOUPo+5pIsCh7CqN32EbpMAFyFWwM0MEcupPOdbgDKTIjE6Y NrZ+ueruBPE0f1I6G0oI o8waHdZ8MMYm0BI7K3350DySZiRvuryvnWcQ9U0axyrhnYUtYD0/rz3FQhCFDSiGsTzoCjwLIDeScV3C pCDSQWR8XdYjv3MY+2T5 zeKudUGJOVdeWtQkgSkoPRQn7fAkASDRHio2LUMQMy7VdnG2U+I1Y5GEfDMimAUZTluiGPMHAqSJYndF DJvENPD90oLxs/BuoXGp G6wuWLodv659JrKP6Op3avdZNOrZ12cR+vdXpTjDtWSrzCZxHdP8YSiULTjAsmYHfrcxLyZqcB4lFypA YW1tcIPaOrGMJ4x0K8Uh JcwLV21teiYtFvhNZI3D4lIjHT/mH92iFVS3v4CPsuIPKHgawLUQOvYzZUHVmFrPOVBkGl1s3V/27qFn dSOyQWaXAYJJJFIzSiMJ fvDgKoVwyG33KWuO1S97VjdiOxxwYSDMiRgCgoyHWBBXHUJKxFkkgQQZXu6fUBZWEAYNaEa5l53320Ra CSyJRv8j+8v8xjjroII3 cfJm6ogQ8YE58fWRs51UMpG9K9zOsHEvVOKp7JJhtPIbaG9pQIxlSxg22V7rCFGdKtNXt7h7L4ZZqtzH 1aCy8+HuuJKPN7bNbAip lzI9VkjrhMJWNl4UmiTOyZsJmpoR1wwqbjjVmdq2otpOIAnYMZtGUzhXnRunczSBqtkEq5DcrxhxMQiE toopUii+yJPc+UVVJEkl cvCQGrSMLJIsZnsqpebOhHXyC5I2lPEEWyxBMQrNJKoKRch3CGREQmjRUYmWQ9XbtG18GhHsZoidipNt T28ks/wnSZbOPqbeEX7a IJCr2widK8QyajMJw0Hsk8kGIA6sipKmO4amqCRXNRHWrlRva1CjIGI1lGXBQGmGykYpXJOIZDqOflbY 41cjQ8QaoYlkQ8IrNjFp OclbFmi3ueSOYeraSct7rhGOklQB7LhGHLIqOtSLUUeVoQLBHvOjRKUPmZfMZWUxFkVFRHtCiRQXWrTl AKACgAoAKACgAoAOlABQ AUAFABQAUAFABQAUAFABQAUAFABQAUAFABQAUAFABQAUAFABQAUAFABQAUAFABQAUAFABQAUAULrVbSy zycldeORu0afVW4cmkjR PWws9seCOfXmbSUmqtjnedrE/tgtWTdFqWWtPYrDbMacieFa2Mbm9HZgaF2+J5Ky9Uo0p/bPbCEn8TtB DpgoTivCS1Dmi4899AL9 g7i6iT0H6bCjbk4axSR4szNO/ZUXzAYgB4I0KpGJcA8/f3bjSCSXF1giUILZJvhlmxkOmTQTYTACUVpc AXReJLVXaHLNBF7o3lzS GfR6a5ot9sKnfGtIyiaK9DRU+A1kNdVKrgGE7mqPodfUzrMiTGtnDTyFbSuC2oREGcVIyahIGs00GX9D xoxphd9cuunU4lvxbc5P Uzp3abcL62JRCAyeOqHEjusnPe4WyGwvQRBt1VKOMwtpAz8+nQS8udbMyYLXyXKcLGWL2rKecr0ZwxFm FWDfdZNQuT4SxU1eQzTy qC88rG/wZAbrvhYLEUT7VwnjyM12xiQoEYNO1bRBhVMP6DbvPGg3RdZQ0ZyHPUMBHEZJVMTJHYTg/rHi zZWU7fC5pclOtbz9Vb2t iAKO9fB5ALW+mSKwrh0sYZzVkrArxGcFIPbKPvfheP0cRZ3OIBFzBwvvIlk8Fhv4ap+xl/LE/mL5W/f5 L3jlwvtSZ8/m852UVL1c zj8/mDOKbSTsabE1XS1iJr5iRkRo2+PjkQGMzSppsl7Dg4w1pw85C2wxqRVLF1VWxelkUJaqyK870CIM MszCHEDOtZ2ASMYJEUFR CI0DGMPYs7w5d7mNA7eXYwa/IiCSBO9KrmhbA3jvFNjXtGO43BKkcWGR4bZYoEsY7QIAcg7M3ipd3pa5 je/eyy9y4NKJu9j9dRV/ RpxUoh6Pq3Nki24FPGsCep6QTc9gcFbpVsysDGa3HTJYfwXjWRmJ7lNTrYItTdSKmmPcHGDIzlGMIQY4 PxoCoSmm57+amYliOJC4 zwIzw/aBm65dF4LPUEIVsYHJwJMDzYOBse4dMgCIURD4X4yatuqL3YwkKXAAFg6LA6jtVJFWljD9EQ6U AWqACgAoAKACgAoAKAMb JpBYdsR4P1C0kaUWWtZwrINBgiUJlxbFa1hE6SL1XnusoVqV7A1daC/Rys9hL2ReA72KJTATSLJUNFFI 4CRJoHLfhgXkE7DK3Klj 3CyKYgFOGy+cRZ7Ndd8ROKQ1jg9lDQAjiO8ISTSzYf90HZNStCA5SJOVkXCwfSTLBMWN0MoXFOgVwISJ SymPssSFDS7MSLZqqXT7 pEyX6YXSlAcOjHT85e7xtvNzrHhOm89GMf7IQJy25E5a18d3rldxl6ovlMb8iflmoQVPeZ2gZAzdiKQ0 gUVDkh4quXXTPXpB5Kvw igLI6GVG/ImVxCesEl01RYIZPDXMJVDGPtW1x1ZWW6P2yFiaNNm4RtVmtpuNAZ7FK6dCpFCdFLQJljK4 k6JLSmPQyt8DL8hNTssN J6xu6J6ipTTPeq2LEbN98FtBZ6Sa98hLe3UHKyMknXtw2eqVNSg8BrlFjjUqVElqTwmo2U3jYQZSvnqw FiFn/RHiT3EosCWD8vbL lBzF6vO2h8NtoZDZrga5A0GLOVvFzPRdoTbMQjgFSFkZZeKUFGpsPYIfSl165E5KSgOgTlfj6fO1gBUQ tXLYAunB9OHvjZQOVnYJ aMAIxcAYTn18M47Ioz398i6rpa+wGEQ1RPjk6Xq/hfFgU7xDGSWcDESQLZAt6U6E8y0snxHrisCirz7v tMuGFj913mh97QVADfnh lwD7o93HohoTs1S+X1tuShDq5R01nmtw6zZmZPjd8ddreVnQcI6+kDvwqNQfxdq5TGKh/sxrmFfbK430 8SDg9X2Gf2j5oOtPUyAO xXqZ1rykzRYt1AJZZOh/+G+i3bXAUYBD25kfWwrNcUkC2J12s/Ky8xmK2SEBuczMqX4bQVkDCF3X+Irn INvs7aB1SmxDTuN/7tVe w+wk3hErwrrWSXo0JFKL/7+AWOyiZYPqs5fd2rcYBPtaG573s4UC3uj3otLecekTVbv1TFtdk0cOPQVP gdS9qIgAbQMoEDWj27cM S0st9164HYyARKQYxxztmhRS7g/E0R3O3ynYJ4mrVmmJJMxfFGHgHBK4nwmEf3IAEejEThK9Mibe46XD PDivOWHoDrfV3X7xN/Ev 45vdMGHcaxKf0ED0SDnlowHSFCTdoS2k/eFJO/nD1BLRFePHGBKLPUVKWZeX9o6XdtIQGB49wyOAcTSc M+GY5AMUWzrSo/LLMEMp yPkQr/FQB5y/wn9Ph0csEdwsphgbI1mTioWZ7/VXLfYOa0fXjMX3FleODKqeK6uNN45j13O+MC7S8juF D/lVuRIM8DRJw09MutXE UKyIdSdOsnLLFgPU0aOxSLrCnZXAmIMXgAjjym4Lfv6leX0IZZ2ZC30F7Dv7Itk62KMMVZ060ucAoUou vPEydtN5cZAwwvNCwVfS bgf5XfPaAFv+OY0UULNpvDPUBay5R0pz29m9ai0Z1ofOlSmTNxRNP1fMaJKnBr4bw9mKPwcMCBoduHO0 X4fa/Xu1gePc0Nh/ivfJ tqZudVquT8FKCUwXxoPqn6JnkHHHENlpRwWxErOViv2+8HzkW6OcY7yLzWZHMKbPyHOHrjTkak6wVAVv nhOLB2L/Fzee3vWokTWD tPRpnaRVeDFnItd5XuxkSHO3aBuAn9UD1ExPVw8YrPf5y1pw9n+PZfMxkAKq3JdZNb6qhypnKJUHICAm UNqSPBTx6ItfYbVswn9f kCCGO5/zrWI15cLKJG9kKTKq/9UTBOnnKRU4XHQgWW0Iw9L2IAHKKTuyHgFGIyCRsvag9IU1qpZG0vm1 YRhrs9dCJQnLtaaObG9d 1zyJ1cn23uNJhEMy721GdVLKV8QIAsi5qXZzFdUtxNpCKaPNYJiXPqVsDBIAtPtHLtHRkcyD7Oczp4vt PpKx+qOPDIZXcpS2vniZ vZ5gehUHXa0K4fRxmqMVazBZqYrrJmH5+y6irG3RTRpyOe5CLAbA50GS+TNGF+FLE8tHYtdQZeSFrDLY SW3ge/b8AHGt7v5H6Or1 76cViBZZcuYIBboOcMNTEI7RvMRsAFFXaTKngWIXpw+7S7PlHG+vxW9IdDMDaGPeIGEwVZCgcLnonSuK wx0f19MeLKkbL6R5SvBb gsj4lkpA3rAJvtFFIjTvm6j9RxOax5O8xLLUGiEmJh6qM581+BEtOqiZYsyZjZ49mYSA5i8F/kZ9bVMZ 7BSSz6hNGaD8WBzD8JVp X8rzv62UJ4AD3Fa2NnW80eFuhv0xRJoEWHxx4zvfIOdEmwhHNIfcWZ8hc+HNVa80/TBEG09Arby5BXq7 upNilphEWnjkKSLvDRlZ Ogq757BNULKviGd9xCdEPh+j45dkNVlmxuHqfQSwrnyL7fxWDepDrasynCpTCegZiHpj/BJsu2cbqlt7 iV6uKyTPVt2TceujZH7I 9c11jPSYAts+qyV76wuqaD4sT/hLXrPxI+z0g5M2fkTdqeKH0dPPOqzFV1lB2xoKM5caD8XebREWMFOV gAoAKACgDg/EfiS+0a8S RYJVaanCYfXTTi9uKdNhuKMLwlgkERNSR7J7GorFQr7ndhkA6iofKqAsNwr9L/Zd5vmtmfM5XbWdvUdn jTJNbnaJw5vv78or0UI3 huscrscR6e3jENFibYCqQVkB6ljjvqUzQE8w40+4zBf76cIr4xUmrc2SHygKJFCjJLD3/MEMETvce5HA X4dmDHp3rGixEVcUAUyb Qq9VGE4euGvnfrOWg675QyYUVVb8nEPh4MeaPaFtc6zgtmy0qrzNYxyN2UGq3x95FZMBRPgd5fZBgOEg xQAYxQAYoAMUAGKADFAB igAxQAYxQAUAFABQAUAFAHC+K/CR4vg2Hq18ygFL8a9lWmyzuYGSD/U9HXyHgruOcCCuPUITJA50oam1 4r7iLdCU6rQoUWagmLwt bKBjAKbUAHg6CVrahHFlQ4fMmwRfjOeoBPFrmIMFYUGFJ7sUVUCiY6pzPb40QrhzKpCe5WnHitxjKpGq khUvkjmK1cPrmyYEOFBx xYzZpOgxnqEZYRUbfxa6cFJdPnApqpkox6e2dPLOVjgmhib/Y4umPR6sRKTQWJ8TJ3qrwAAfVYiVx6U2 ejH8x5qNS3wbLJVUAHIA n6CMOzMuRJxa2UiGwtQetyDaGJRMWPFVoFxSAKYPEJPOCXDFTJTJXjO9p52/2GhT7rsHJFQ2f4QgiMPm wpRXjgzKiPlt0+1o4tvz D5hQA9/GFtpmNCPF8vDDDSwmWZHQK7VNXqvTD1N3ITgWvMVQY7XJhh9c1j0RvHNYTbMh+sH0BitqNMo5 QAHt3BgE+FUNhnL73z5T 2Kgf7SyoSeNLvs+b/HRZ1tfojbigUzMzmOB41PmNheHcuBIHgzknq5WUhlAPUHKeh2yjkHUEm17sH1BT JAShmzXkKC2UNqQSNtI2 RdjIV0ujGiKshqAU7gaHGNVsIFyQD+8QZYhWbiRQJE+LaGJ5MTVlkWhATLORHUKhVxNOTMpPqY9gOYA6 qFFoqNzxnFPcyJ76RCgA b1E2obRcv6LAUQcUJQsYJC/DFvPHU2KsMUkyIKQpizHd5a7rwLKVHN7TQojVCkauNNSV5Z0hsKcySRY0 hFPKG6A+DtO6Y0QieQov JLuV7VC5ogOCvfY1x8RjpfrqMbVKHouZkZVWAETteYO0Tes239Ql0vqcAh/ZWoSdnBLZy9RJoClTnd/m zVSeVVLZG1wgSVXtZLP2 0FkLpRnz8HtvHeymK3cJEVwlI9zIJdyxvy0M0wNWzdZTZyXnNaic2NCLR2OPVZL6GQYw6Gy9QArXvGHp dTsqnrgMqaTbhX5MABsy 3PpTTfy6+5NtFAwdQgarEwLRvhMWYKbjlf3tdeXlAjLm84UjZ8wrgKO3OidEpleYvkLYxB11KcACrap5 62kDBtyghxgDazX2S2yh WzMV6VKPKCfGicsEM5ABPhKIT+xl2FVqPuyu0SXUdzkkZwWc92y6nlQmvGQfxbf1hdL0ZCQQPplRyKlH AUAFABQAUAFAHK+ItI0W 1SUnWLDxmIHEimXIsXkevg97ToZ4zDeh+nWgCL/mJ5WaW9TLLO8dliVRDYmDb3TKAsXdssvekJPrdWQR JqJmR5X1xvxJuFsG68Kz Fs3yEAfHckO38cCtY8UtZbFqmPHnk6B9/UacnnPgyWaEvlLSTWgipZXATu5CCHutnweMPDDc2LlhRPjN icxi4BPvq8wSMrEr7aHh HiTrh3NEvLhPrLpJVpcNeZknon1oiD7jESnoXIiWigdx6LIaJOQOh8VOWOXwHclSdqZTNjEGUdFJvBZt NCzHTA3TJDaUAwLaaCbw Lci6ZQkltlDml1POIKfAkkSluLc3o0DrEySCJIS53uAXJ2tNVTCKLnV01wPHS5J0xhcfCThEQq/dQMQW PsMmgCL+07TdInnwhrcZ cVvIiIeir6iYFuhSYYNnQEJT/dUYS1V1QpLNJu3TbS8SaTBxxwFuYo443k40cwekRE1fPQJyets3SAu1 7ZAzQBZoAKACgAoAKACg BfW0xK1O1aZ4P2gVd3TdgicYWdfhbcWfIvXiQMfXeXzQ7doJRwp24k20SdCShlHZjMrwgFLAa8Mqml5K AkcA8oiQ9k4NTqc9ns3E pYM4ogAeLHssfbz1AR0JJooR6GY2PYE1UXCTpEySrthyitpxD9FCG1wNSUppxnkkEYXE06ZITofY3ACL B6AtB9v7B43sDKG4e0fi TjDUQ3Qglo26IX0CK8FQM3EO7RsTlcZQ1lJGKm+7A4kWTGmUWKWfzRvUYOw+LWRYEUZr1OPTsDy0Vq2j jhCWSfu84bw1hhxVu90q Iw59FhcQMAjmgQWP4Et2fYSdaXpZpwvYWLUQtarqZrTZEM/bybNAybiDi5CpDLmYr4us/AHQ+7bu/2c5 9qALhuYg/to3DmWiR3Xt cihowmhwtzliEjS0WAX3SfrQ+0/iEZEDfCG78PPE/ALu/vs2x2Sn+2JXaaITL2dIAsTxV889WrY4vRv6 J7NV+b2dFsaeZuTz4cjJ dvZpSuF9vTAdkjY6YlFT4YNmfuF9i20uEwan0nzMRPemqwoEKGeKHbo1mybrzEh2BU3AaAehOmzw25ZT DTJEZFSaRbhwH/wBPjlm JVfwjRfJxfcIPijGwIRvVFeX5M4wrJkHjgUjDHx4XmD21hgailuPhJ4yQ5SZ8crl+PjA8QP9F4VE2yLc PiuFmnvLS+64Wv9LQkQJ +9rqGh38HbyNTStmpdpobO2RDfchO/CEa1soFozgwBLTakCNOQzS8DgJrtQ2eMJV1QZs7syabglZRW4R 0Zs22r55PRHGpVdndKDf mJQoM3g/Me+ZcWg8wPVP3bozfPnhs3rvXT5+ZStZxJXGMEdf2UibEMkNzplXgkf+MbPW88nua6iW1tAU gdW7QX7ciVWiZv/2i1il HcOty0SElrtVG4qJHDtjxPoTETIe8Wq4pmORveaHsFBrwKBFZybH9udWttuULbZnssqxBUuB3QfF4YW9 NuL/O2qeIRprEqhw4vAB 5wWX3DFO9ld04zsPcWspCIU9P5O1EDt0AbvvTIYR4RFjgrAVMSpiPWVT1pzG0QzYT2edFuw0pJ6HLFQ2 FADs2C9nlIg8NlWbhQF1 TNmsZy9yfciofM1SEbPuS8DOM7rjBnpmsW17I4VPOZjtV4DHQKZIqTyxE5hriCo5OBGuiifoLUDav+Ye C63iP6K4CCAVNCSMIRNC GFhxuFHcjjQc8FSAwHwT9lk/YXKcc4p1vzKVklFUHAowXNMwumxUHQBdpm5B2R8ctj86Qkd2C4xdDACC 6rOMPFA3CufAZcR8r0xt xE1LYWoOrR+zbLEt5j1uP4pLnAQphGy8VsUxyo86W7MonEQSkNJMKGURSYlz3OpQGPTo/PoMQ7rTwXBg QqLGUNhcgtILrYQRFuJA bQqjaWS8hfHtA1mGoyD3OS/2Y1WHGhqMMcRC315vuMJErWTsj16UzJI0s2MMdB6uwD6gdhEsGFMFJQAj BcwHKlHTYYGHC2thkXB8 Hp0SjWyjTXqx7a3T11zs0sueFfVJc42bgPdHu8csbET4lO8FOQDAqYRjIkelC3EIsM2vy+RgJbCIOG6j iUdzJr2Ucup7kcPmxWsA MowcDgNxgigDz+42Ur4weQYFvh3uVPckgaY+Tk2IEftDmZIjheLXWAgiKF13cOpwVakPYb3edVtMjGcO RsL1btmqDbbllnMhmTn6 4KcWF7v/lKvfojG8Fta5QpmjZy9ypXgpJsLqS4QgArK7CrszQGl/IiCB6u9rYeiDEHtEsXNgj5w9M8NP yYhe1pKu4Gv5bHq/tMVu 3vwxa88uoQlFpLmoGKF1HYUTaWZdOiUv59u8DYHkCVZ9A70l8R7QthiEkNZLbS/8PoiKA9lXWIIcFdT2 7OKACgAoAKACgAoAKAPP /GRh3jlcDmpbaSA5j88n2uDP/AKDMVeU8/pVtDLGOCJ8gJRrSj7V9pKVeILCsF0ETBNE44D8cVbEd8+d 3KEo3PwL9dGKNqFxbrcC bQ+G62MxF4DhPvKKQNHQRBXYkAA8+4aZRBVUT5s7CRM3OvWGSEsuU0gxWOMay37Yy03LMbW3uNeOA8Ws qQL8yNl5+p85Aohl614W /NG5YFTU9mvak6RwXkTtwC7EvIOsFq10cGYtDHOm5Fy3IyJHz0la5bXmaCwfclsONAxDBWAKMFs+0gMJ SgZQu/jgchV2gP05rAAm 9C6PffkLqtZpeK1TRmqLnSTAX1amhhVY5gY2BKGOrgNeGlZgUadGb5gtzwxlxDhVCZySxZUfO0EPRxxq DTTcD3bZnbhWB8Ls4pCo rpM2AYE4YV0DST9gvYemEZco76INvrma3R9KfXC1pj3z3Bf8sGbhzKi8wrdKmUTLtSD9QRuAQdTZbG6y pIkHLN6qlFETERBAHg27 Ov55wWgo4cuZFRcXF8eVeMN7FO6wICRYWZT+9V3mQTeFBeavEulNL40tsUP3QVYLaTNAalVoLAo/rDEN rgNnIHuaAOPXwdqxtArQ N5BfQB5z5g/jy+ynHy/DxC0OKAp83o2ryrcXU9GuljJH3IbwnmVbjqcTuNFLUPahxRstuIJBnzugyVQv EG5MlW7k4WCdf1kSlb1E iKADSZUZWXVwS8EXYpjlvw9fEN2qcseFSSekI9gYsaqpqG647OtVa9BolX0CQebXShhMNNjXo14XLE1t eE48NUZcL0ks9iAnv1S0 yyDUEONSXNY8g5PXPboj93mfUyj5+f7OdFHBTkiF7RW5DxNVU4JVgmpiBb+WW+XB+7yQTigCyPHdiUBE h33cRUyJqA/sI4ybieKg n/BL9mmgsTLMMgXfYUmj7kGcpDFlDrO68fFZ9GwITRDcpjkoMLSCZkPPcRNUZ84qz6gCGRnCh3ZXTXXL sBhsUIjsZEOHlAnxd1kM XRs4I3hjYOdaYFwd2wS2KhL7hMt5xAo2gTCqmcqREkSO2qdtOhL0c4oi4P1VRmUtua1ai3IPVHQMTXbJ Yrd8YkEkFvtrmUQF8iXd RglausEHy3lVPtiVcRsD0PJQWk81rZ4BK2pd7JriO2PBviKs0n8pypfdQ1Hucpxp2OpRaZuYzqkyW9jP qFLPjZfProWTr3iTj7C9 aprlvLNdLHb+UyBcOQHLx+HPQMqO7lFecrrQkmkTapCt2Is1jB3k3baP33mQrUTczu33qzzyUAZfgzFo ZlBIXcgVs5+VqAHjxldi WCsn2aRNtFEYdIASiVZr2eGCxdWAfHQNeHVK7RErDvEznmt4dwgtm2Y9WboJBIrDJFhEhHYuxMwqJ+YR 4ZAtzR7HsBfLOGPUXGHB ICBwE1q56+5j0hZ8Nvjv8tkQ2IaVDbRv55dsmMzQgeA78Ac9HWH1im4T03hzc0HWy1wP4PHRT8LYpBLE M7lZI+mQRkhgGGKAFg+I hgSVM7zrwG6gxnDNFRxBjjBa7RVUU6ybWXiiOLQpkNIG9Dx/Xj3tdDJXzsAyFoxRcjO4qWjPYyJ1g0Ab Ac8/frZVQWo1owvFuQ2U RjvFDDaqWufjUMFPcSp2LZBfsZMeWSFWCxdSHTKjcfPtRvygGJymuLN8XPLYpoQXUBGCQMVXnzzZDZ86 0LL43Snz7b6vU7CZJyRp eeedtVKTZjcaj3iobw8vY7Z43H1uZDwWR0mog2a8sDL5QhTPC9VYzhbM/6wL658G1XzXsQfBNa/CUX8v 7XF4O0qi6W9erLrKRAF5 wRHgMVPHkOIK6Nhy0fVJXCNq+M0uZBpz8E7Za8o/sRRnPwGdQZlwYlI8jDzGvRWt4LRMZU08vf9opEaT j8aho25pIeCb0SjceYgd Y5ejkKfLjUEVYppnKXn7D1eD9eKDEyDX8iEENHyQTeEPlHPUJIDoGGzSH8BZWD3yyGDHJ17xw6x1vpYj GntxWWGAo0uzM0ZTPH09 1REjE/qSFlKspQTSH5v3Fb0ta5tJpARg0q+ohwddkAPIJTMKvC3uR0eJEuUOAKTgHwZO6H0Xho85qEUY cXlxecjJIWIQvsQSAoql 3X95+6Zwg+VyGxkA6+jLzAXYMmSpZ5CkZk28qpsu8GwcfBbG13RU6HZdpYRiPvq6pcMwGSgMTviMW/wC E+wLKcWHGvcBmnXnVA1Q 2W0fCMfVCgTOORbRkoEFy0gHzn6n7WtmOIap2IiAXReZFaMH9yZPfI8mILQIS08OT8YCYT9+Rlgh7PNv Gcw+TcSTkRsZbdreWKOQ JgjkRngSxQnwmgrBRuW0c/VHoAko3jicNDgThCHyQDrtUfMXp/gIH8kaLSYVxt0IiCd6JwK6gub5w+dE 9i6xW6vkbdUFByyvX+4I sDtmXJcLDUU2jK24/AEODPtmuXnyGr6zEvcUsehjQM/MEx2eShc0uZPffjUEGp4l4c0NE6oL9m4s38B0 nutsLymZRGAIwyeXg+bK lzQSbKxfB5qOALrZDChm0Q1eAr5sH92sSm6vjrRnD1dtVIHfl/yLk7A3NSQKEVVzVI17NwGx0U5yvoDh bJlQQiQKjmSNJEPmMOFw 20GTM9tLSzEJYZknefpRj/G2ftHBfISEjZbRplGGCwGl/AHe+B05KPb1JMDRGeeMBEAkwDWr7RmOfA0a Iv5emW1BWP+zYJecOixo xxlkZpZLxMbuVZqcAZg3d9jRlX1uMXATuuEc1E4jtYlRNp1+LapFuDwxYQ3syGVbVzM6TvnGlVXmM6i5 otcZTkK1fcUzJSrCsDJB ISk4BijYKfadmEVtnrIuLdGE1QJqhYnrbiWWOt4rPgmnCp3OTCgOVb7e3Z+FpMNmnAMY3EgJSVKxptou business practices supervisor/e1rOFhaNFpqRUtVn g44R3bXT5naaXXKVJaFowFJGeNWLunNlaL46FFdKcQ+WRPX6KjucKOao9mPt4/YCpD1HseASJHsRh+2V sEQ62dXxzNASJXYIjKhA c/v1bUyVl6taUuNGvWuwkYSaNYsiBSof925WOyYAS65078BAVvnrPE2Nzl4fITTFBA4FcMKfsIfAKxFC isnjEF0C1gyrgdQjw2Kd XZvFPaqy/Z2SLfdrk5t98qop/SSCXfGusD5yOCGnwYCKSxTJWb6NTQoafbyAGYBr1ExKKbhSJxBQokVM DBhT5pNJATEDVY7JwIDf kKAVlHO1Afgy0r7W1gtAEMLAsAhhkUbtRegqJFDeT2+bbxgF8BWv6auMFqfVRM58ci9xlHPJL8VGHuxZ QITFq7EPYhCJvBBhyQSY eqEPtl18Rsi2CJLaFwpNxlMEG6JQQWN792oM4eHaYdNZ4IRPIlotVhvYRiGrRM+noAhA42BgcgCxc45K Tdn6vuA7HzRbMD1CWEUb g34CWOYCxCc7IsmsPrC03ErVqzwFV8DHQEK4rCQzwHMYXe4fTOT+XcEneMDCG0POlzMtMIAPO0yvgX+b Tu0oJENv4AVZ2leSQcTl ULYJIDNpaBBnIbOPPNNzSD4DuFh9AP2QYGKXYHw4PMAACXPJCSNOPe7yGOyuqklXYG8gYdVYSgEH0WFT mTNRey0xNiCCr/Bem28a lRzfHEZnWsk3WchWy+vVRfanWOhatYQgRJcPfIlAOcLwPe3P4kWd8lo2bEeqNhnVMVKjIuMJlZAa35GI y9TjGQLHvKVE2UW+b/wA +znLgdMUXOV7Rn0uZJGQQUOd7z9Lh5aW+4RSQmMvcFvK+rgaakfJc5F1DLTL0Pvc3WKBb33L6LO3kdNw AwndlZCQ/04j63pi79NZ OxIF1ISVptTPZO6uSMvQHa95hdyjHJcgF7fdrbCkiEVasCgfN+IXgiWCLJ1ZvhPtPMaPbJcuj0X0VXQT Hzul1YGcaZKnoYNJXYYW Dkt5dmrOaU8V7gpldZh30WpNStBXB9n+aSVwGd/vgw03vOCg7/h+6r85yCAuinfHfJzffSSwB4G6vMqZ maxuoFRlOBoL6BZTF8Se Wv74Y4mGxOYYej92nAZJMHvseplsGCZ1N6xjTPmsPK2d6T4YEisl+a6Bv9DG5VqhCDhSUxyHOGYIXrMP NGZxSfKwdgIAO3xGPOql IfdSCtpG60AFQ3cEqOwlWITOGncwSZXK7LvnnWLPEMEGeKIBbPTPpVMfZXJhDaLwOO1iH8XULk4XEuNd EvQienN9DHBO7oUMGVaH r78DbQCMYJDZDhRUCBEXPQUFZMC8y3IndE8liBJAJHGMH5TXB2xr6NDDkYZgedNFUJ0T3gVAmS3jnrDr 5gxsFLwpXre5zPVKbpUJ 4mdUNZQNWPlWJcasUz7pYVqgxALQ7PfsaYb/AVQ1FQ10HDmB5ZRbFJhf9GuVyzzCPKOLNpgLQITHOFp2 mgOyBldiTHPvYLEBL6RQ Xi7V7PIMN8ow0gNwdJg4SaTS57lvilCoTTV0dQrQNCzPUMtmkkuWih0d+yZ8EAYRohufMr7ESGkKAwZS MXx9lFMIqJTom6Axf18m bBZWUzhWwzl/SPaINsSpyDsETgewxXA7ViMoYz1wlf19gSugdNZPRfzCSL69oywHl3UBXgSBSh9Wetr1 QI4yNPrHRh2z6hnsrvMK 6Jh4QlhgesM4v1qt0FGUExVFYEORUkflgR6odZKiYK/3y0YzZ0snHvvApJvHGx0suMXQQookIXAwQ6F8 779nap8HVePWZnfhOflw pTx5paT0HejwPTUdjaBXkOxaCC5G1ER4xQTnipmzTLUTbXwwakHOBBHxiyULQNcOZVRP7YKe7ik+klzF NUJTzHC1QMSpIxpqZfUN VKUM6gW9LWivcGJLn2EnclCgNdPimZBvpj+1l03yk8OKRfG80XG+QZjfgdP0s0NGlKTOk7v2vpBgWGUr IEGQ5vORM5UE+Gw4NBZq EHoLfDieiqCjuTUumll2ls4WeNDbzGVmCwzKP2BHevRCQpOwVKpJXe0uhaY448NNHxsQTVjnfxJBoPmE Hh22e9Yf0mi0zfn8xiqo o7LBevmITWOHdGpwoxd09sW2iqtP4t2LOnlO+xBQXsltHvO0mEN/WkbOcriRRiPoYgSs1ONPgtOkTycp MIo2PSMCanZtvQBGKrJ0 zJVzwlAGLZ+HbmbTJtN+bpjIkvWuCtd6iBefC4ae7wOzP4jZXMIq/iM1NkwTCK4lpjqJ0n7riT13lByd FHb7/MS9fboAQvwR+i5Q Rqx/fdO7DLHLQSwnWpgNkHe8smsN44trsk63pzFHTfDsTlNT5L3mBiBozAq0/HGDeIHTdhe7Td4Nft6P sHowQqRczi3HIbkppNYD 9St10Bz5hpoiNGz6EHMJGxwOfpdobpZlO5142zjEuX1SrCVZ5EG927fcoL7g7sZDFHRqxX2AVKiTJMcQ 6wu4LmYWhChvdUflMlQJ lpfuv7DsQxAXPxhjRSOZbRXQLeDzrPicwoPwlJ50MmcmpK4xjJSGFg3CR6tq4r6dFNWGq/kFJ9gBaJQZ AaI0hzXJLBoFlPLPGyEl UXOVkSz3wM2bz7tKpK8ow89iaQIxaDVFzhbmWAvPx9ebdta2QKPqHNFBtTOCFZLqKONcaxO2cC8Zw4rK 5PRG2vcH2oDTDxzVAqHE AHWWov/9RqH60lBw7BJcXSMM3X6voOgWp1u+R3yXXa7i4MJUHoDIdse30WctjTatt3y8WlKHLBXBXO9t D3ZOW2Z3IgfVefahkUH8 zw/txujm1SlaNCiso5kiOGDOg4LCq9awpUVm96POcpaHqvpdcONALC2slPav9/TLBW+eD8lvJWJWJaEJ yqoVm+NSLyu3ytXMqGEd c4S6gSc7swpobywW12+WpOM5aoFztmcQWejIuYQM+MbqOsSd5zyfGPORv8jt1xX4nPBFYHbBbLY7vuHH oh3YhObsho0laTWpbfmF 2+CJSDALVJ7J2++2SA0nlL6uyz7cEfNT8SKvRCXaNgzF0/wEuk4Vhv64mkmRNCXzHPuXoibM75wwG1v8 1lfbmohKDFCPN8r/CFhK PU1ITnNxYkTCIj9HbRBPdn75+4D5OB0u5apUfoYb6iulEc8tmgTvhuJW3SRoEnARnZ0eHCJvDxMDYJpQ rVASWoMhZ94h1uP+t6el lfJwJbc6TibVukJZlPeBQ8mutton9KaQ4Lg7y4Ho6Ra32ix1dK5i1dmSMiewlKwFT8tERKessWaFLOHp kNw4KUX3Xbo3Xk2u8MQH PYoVMRh+hyCjHL87G5cpPoNK9RDIF4u3YPD6wOc3Tv7G39Z1PppnrQywyYdn1Q3P79xcZjHeGnl9caJo 1LLH6ehzYSufROrfF6ya OBSpAPkyJnU5DWpl1U98qoto+Z55fm2FF9kvNZW0n7Lf334cA1vG44jDpdMRLGEbLrUQTUc99zsAYRK4 eAcohLbLrlb1FvMlot34 AdXsR7DDeCFrUX+6mrdfVqBNesLPK2KscfGAEjERGa3t1hWniO0/cwF0TkxBQ2a0SuvssRYH5NMFXEci Ddnl3ZUvyTw2Vjgk3atC QDfutYjXvym12RsYJQNArfaGBajeD7kvC+65320OMUidg4J4QOvLxcDZ4bmTfDVufdpt66MHMIEayQGC 41QGnRHAIOfIBtnII56R mhsJreASRiOzMcEq+SESxrNQW4IMMOkdZQsqgGsNYSFpfG2Fo9yG9Qn3xeglnrWOxOVEn4m0gQ0Urpaz /WgDZoAKACgAoAKADFAB obAJfKOJbT7iIVpHGpMhEy/dfDYTIW6eXIPSMVpI5BWSQGPYEWGCIVNKHAAHDOTSQSVuhZ3UWGKQnHBH JXGEI1sRMTO5GGXTrKyR ZAEZHQhJOJKRB3jCWRNjUqMDKKaNuGTPXgAzDKZSnBVgDtEziuHBuDYbQbBJscQ0jCAgKtIMIGZUTTAB AFABQAUAFABmgAyB+FAC QgmDIRlV5wYM6oQL0MLMQHDFfiRUXSZwuNnKYSVH5zRHZRfCtKMKSkPkCFNTlESHdSCtfCgakMnJDFYI BQAZoAKAEBHQdqAFoAKA BqYcYANQaKpNZWObOpQC0dCT8YHtJRjAu6kQPjBxQvBSRREcH10+nBZ1GXpYXqKiWLIRiDoGGULO/GWi 6J4j6z2lbxvS+s5iYUX8 MEENwGIUdveCSp25r11iLNFQfJA7jX9u0s3p4W9aaZHQkjuIb++n3bIiYRiUmNMEzwUqsfSkSZUZHTDF FXHCspqN5NPDATbDC4x3 RWLbDsVO9Bfme4nL6Unw77GMSm8ZqSzeGP0vFTEZTpcwz49bkPzdZcQi5E4BThMhFjzqknwAtO82fODh 3zfxb843bZBIKpvdKevH TpbK++8UqGvDDp3GtHcE13a+t4dg/z4LFEJZCZcktZLaMQZFhS7YcWqcuvS1jh6s3CEkughiF0wqpcu+ woYs8U2UQaTykVm9AEqb R8rpKIt0Ketp72w0LzXFZfqm/HzfOgZikhtqOvOn7SCOoNHjOO0UWVyfsoYHnUlkyK3+Rmd5O119EX/S aWtVAYz3E3RyPM6rSMhs weEgcRFAFF3mLtpHPUJdLtjMxjc+rm3TdD8kGXmBLFVwAUufdgkRNNv0pg50MTQyNUmMW5yNeyQK0isb fMEw8CKtyf0hHpvEfuxC qsHcaLlLFj7WbqrdQcf1JreVDqyKmzTldqTyQGVHTtDDw3s4P1R7TvbRtehRROCywBJpMXQiBep69kOB 09GTG5c0glEI7bRaeyMi U3mvLBdLK9WZUJBpulYxwGyCZ36p4qm52WSwe/vXKjbZuIPsAGJNVKIxK9aSGBrD9WPIRgMXKy1Idv6G FABQAUAFABQAUAeMfFbT 72Dr4Tqu2ib4Pr4c67mwK7LEeuIMdwyR1eeJfUcn5pvrZSJSIae3Nc2yZ2qrfG7D6RwgrpfNYL1l7wj+ ytle6F31F0TIqtRkyrWZ eqpcOsLlkPh2HWqsak3lfkTYjr8XQRyZ3NJ9mZ2CH3Konb2NYQ7KYCEjDoaJCLoR1Jtuqg9+rLNqlnfa rpv8AZ/b19fdtayP/AJh Cq8xlApFjKgrjgZJsPBhZRGRuwoDHkBJoVXiVaSX3IoeepdVaEbb0hqgt1J/8LKKeF4hUdUeLYApCfgz 0rIzCgoxAN3kKbuO37Xm 7f1wgoM0P47URU4fgc4+RaXHOSIQbLqNh4DiyIAQT26JOVjX4vSpLXy2R50h5g7Gf0v5NGCUnP82ULCO Y8OBIHvjskBAc5mVMVeG eGhQybxtf3JpAffMsxK+YOMhNE2YDdtvzeL7Xp4C9db3uVEZIC3gny79R6c3a7zdDwnOuO2UeUONtRkr B+8tVOpMrXEjbI0CML3x 8BSkq5PIWuTB3k2/pImbePBaL9FcBkynR9hFIgEJLXDwNpIMZaRG3ulmfAMeuqFxcJPocTBjeNWTpeQY ungEA6TYPFXBSecl4AB1 NEWYdEMAIxNoPSJVmRhHVlWW993CQEgEuFSC2mws9xvvagmszd7xH4m1pqCieElzZIea7XN0dmvcTBWS czo/yxW78Ezu+2wwTC7+ 5WpGrPdzZdDBPDrEQ64gABCeiofOuFbHUn6InH88NbSIigrsgsj15AazT9KKOHALFhf9l7o/YyrD21YP TbvEC9Wig3KEHTYd/FbQ hW8V7oSEXvvOBuQVeYyKvOB264SgcxDBXAF2Z1Vj4oTfF5RECZAceCwUBbMPZfYMk+nLDbbEMcdusMck 1ruQMBXPuRMjBafWcF20 pZ6z04ryWnQD74dvw7lq5ACdRNZBOWy1XdUwA1wI/LOyx9YPhXtX+MRzH4WHSEXcFJoe4Xd+jzW0ezpt GQqknD9sTtpaVADFIVBj jBMertOOkKlCw27cBEutX2P1ifQn2HhAeEbiXxdpbyN/KA1YU0cp5vDIUIgK5xXOBwcy4EGvuTIfNxDr +Q0hONV9bTR0vXDm9bAD KLYozTyw2dXWJHfHMWvgxBUcQyPz1XxlUzkNxc0pM0e4jv0qUsnVUjTp3ULCO4JB7zWJZByaAPIJYXFM 94QLo0sVTy55McvgBiQf Ygl9rG96vmECZZdJVjONhiq483VkCBTKCCXDEHIJjft7gjCV7QUAJAACWFxpHv1fsLtcM8DrCFE3tRwZ XVGgPmXOOE2ttEZR7rBv yo/CxZceprAaOKR1eZKP8DYi9CKPLEIqjO0YzXN/DDELajmPrGcvtbDqEk7YfizO3iuMbY3TBqD52WLw PF3aBSB9kE6LeEM5YPBl gYNTP2rULKXH42NwYdj1PjoVRaz8lG+xsNh+2YX5vmVRgwxDvDkPpPhMrG7HetYpAO9fiPpqVDdQ96Do gsdWrCJFvgtXaIih3clf MZIjGXxBGSnDJMfAZLfIQIIXBVOMWK3WKSKTNLTWMDTFKKdop2etHPt6jSvIE1S8dFtUhtH3CPPhCyAW LNlsiFDuKjPpQBeuvEdl sigX6iEz5o3ppedpBwIjZDNFL/MTwKAKEfjfSGSSR5/JEEzQPvRx+0EH09xjd6Bn3MWq9XVzWro7GW4E 1+PSja/x9K4qm2qQlhYi MZKHXQxUbOZY0JceNU1UmmJPavTxjBeidFDKKYw9GJ8xm7UoMwIvQJWygSogcXKbSN6giAxlZng+IbX7 ZCkkKeZLGFlG1/wB25Tc F4iFbeQcNWX7KLOU3fgAhqeYdIAMyOFLGWIMXVpLqBBULqCoXLPXkXpI9IuR5rJn8MEL3Ove2M2iT1ha 8c27vZxtuHT32nAOAhad xOMCRDaGs1qCKCRyLgYMgJ2AOmN+k7wokKPcFprKQ1cKd7pfyiFncs09upH1ukp2A+E5lZqReNI67MKU 3udYJbwvIeFJt1kcVc0A p/zBcP8PHlOHZoPWhzcp+55fSL0joMyeZb5EIX945gyUuqNfNXsyJcnrcNHBfpURcYWWDHch8KQjVFFu cglGDFk6TbiflPGiB7bo JETmhKaH8HeiETQO3edNJS3OhqeiRIyIyjmcdyMXJbEMtturGcbkqYmSJrBIBvXPAbzWgJZMrURwAVJC UAFABQByHiDwiniCTMtx VAMtXPOTZ9L2T5Msz8I6Nw2QfsHnLhiCTAHlO+NQDsDa9P1oiOfTQzYICwYq29VrcPiJddBonsYNpCWx AC41zEf5czIQcGqQs6S2 LbjbOwbVJKBC12RsTraYWfPXCUXH3tRZ44rdqKCMGEnI61ZSbfDnFj7kuCS66Ihi/AMK/tQW/fzhUDfZ ANg+ayd1szIud+c+cqke ZuxGPL+6TQB0+t9AkvcLFPhIqMWVgKBovgulrc8zQDosrKitLDTIsZPxKRwZPvHKYMFBcJYGiGT8DATt BRQAUAFABQAUAFAHJ+MICHAEL Cy+AagqbUSMktDUoHGF6kLKdqjKH9pHnfAh7ZuBGjQSRVn/w/ncoKHxnhKHN23d/l6TdfKN3HSxS0GK4 e4ldYssmuTD39yRo2hbW RR2ekvu5O1QkiZISXtRDywQXKFbuq5xcVpUV177csDex45dmFRg3xrKNeZc7pRpCdICT8Q0J88SzH25M bAF9Pli3nGjD6jsPRw9k bFsyyfnjavcZHiYlQoPKIPMp7Ggtd/gWZxxZxKnaGsFBaqbdFtqTrXxN1FIy75grGeHKCJVE0ykZpfoS iCCJjJV0ESDQArXeBRQL lRfGYHNsOjK7hzO2r/jXAhVLM8EEEIY7DrjopfEZiWxqB8Ui2/osPU9WJJt4DK54ETLww9VsglZysQJH H0kninibNclRuUW9BOJa i6NcSwX8PU39tYF8bulAK6b2O3QORonGKnaHnchjLgyQHrRa9cJOOm8PjXw+s0kIvLPghibMzaUFqjGt q4bhoKvDiKfMN8ctoThD YAD8Ak5rCXyBW5xoTGuA+7khHEVuMXKa7sPHjIgQeDw3P2ZFBOqiInI0CAq4oh1tVAk0m6sFA3pJMkI4 PJRIFWTC5J1qkcaS7kfD FIWJNYHScKLH3SDKMKMLSQAISO3F8f/tW31WS/wBO+9VoBztuewWtBcc6UU7j/h+5aMSgcpleMRE4yGA GZp+uoBmCoLWV9rIvYYG TA7L7x72nN3TIimTk705x7lPASTcRmSgbrdb7ous5xM8lNlLw5IuG8Yv64RzQg7mkISkyMbdkOTHqX2s EPLj0Q5yqS5dO6zuATQg urA76ZYPZARH1UvALf5xVegaCOsOIj35XB0Wbf/qYQD2whxTTa5ZHGPhw1CbDJkMTd4onh83gzXxNE0F BIAKPjD+5BD06b7vNfSN QKAyw9vEzMzPV+/tQP+Q4BcKIHYQjDTI9eZFJJa+L09se3xEPYVgRyQW7govmawMh5YVinkSgQS+CQAo mOtNKDeH8bdPqcP+zbIl mmhM4yAfseW+rvoSDxXw4uR1bW9lkDxsLYkfVZlNee96u+f9XxkjMHPsYQohqTtlBPMKH4kykxPqmX5W sAQKBDzGxcsgsE7sD6sg yItI+KkhY8nrReIfFc5u+nbocKy5ooJz5gR63H5Q7uMkf2hfQz3VHo9kh5vJKyjsNqz91BAN2txRRjji QrAAgtkKQDKn+3Vriu0b uuIk6jdrCdDVqY59eJ0DzriHQpPcFvcTPnrgx15zXnQWdhc/f6EA22FkTCiu0RKG7qt0dFAWI9Vu1d3E iE0p7c0wltFQXAGGf932 hQCQJ15DsK5tsURAsNsiDIie3MQ3PQO5NvHs+ztTAwaGAo9AdOmLFnZoELNOjTbCiMSeueV6YJpTpw6Z 39dqshhTm0pB2MjkHL0p gHZ6wutZtsB79N1UqePxGnUxrNdRIQ6MpqranWeORj3eV/eT3CgLQiRZnbpZ2FzvE4u+ZmGyneIWezLT 5KeKYAlZkvpTlShgIgv8 vxHELmbfNX0Haxr5JHVPn4CA5FwYvz3IsTPWE6NWgaSZCgW3y+HhvO4hTIY+0B29J054kGMRHi76cFxX AOXVMfl4VwZQF3l+0GEc /HHEoKPkF0hPYxtJS2dLSynC8vVwHDyRI8lRacd6ib8CAxhExdZ2KaN4sMmmqB0fxHlNBoLqpXEWgNzX COHDBlDULaMPxN3ALx2W 8ilSb4QQaIMs1AN8xh3JdcjuAkBWowDMcUgkOZCHuClEeYh82IQfKaSpOGytBZieDRVvNpPqTICnG1a1 kaPCzxYrxoHg2NYYPAfr u54i+12VNiQpJScDkjUqrDj3WuoVmoVVYeiFc3WJrGiYnS+uHrgJHa87KZWvyjGYe1Z0OZdNLw85ASX2 SdUhB1gaoeIgFAc5DQep NjUv+58/LjPAoA9/rUf6yTxJgUOa3ZP96OtTFpQgddGOD4MGnPx8EHPZLADWXYVTBTIXQNf8yMIBoirv UvArQmbYpjyuUNf3E3nv ASVqla54ZhyVZ6RKEYIj4o4CB/dGcN4b7p5EjCM6WEBNgATpEF1mzPb6q3E4OeE9cpQgeMRYtHjGTrkw k99hLyCTPc+zxyRtJczL Mt0bqehhvFSeYbtUTELSo1ho46NrIwwb2W8+QLHMHMZWwnwsfxrwlUuO7y3R9PPNTWBAWMO1i4o64HYZ xojjW3FkRUW/lvbyRtOr bHC4+MsJA0FnD1oMq7GY2lKHnfz12ShByYW63ecOWcbiDEvYlx5oHJydjh1PsS39isB5vrceJd3Clj64 aYfTqBl8WnUIauckdziE 7FZgS8n2YZ9t1LCyTwpWCt5ltbAZXqNan54FuxxTb8orOWfx587MJMV1+SRC/+jRwPLzMJAs/nHgeoBm o9/WBBecuYxahdTh2Li5 8siW4kfMKtxoD/Zkk+HWRpyE1EmkprGY4y4uazI1Ok5AykPEmogsNpMmmIjw1PZ/PV/zaBNZKiU9c6Dj VquL9jqMoZZKZiDzBDUR J3CcDtt0nVg2nbMvfEvTjEoNEGaVIehsplgKEVJ4xt+DQUtRdclHghpDWuQqZ3Gp12TDa+VfaNnaFn8A rZ91gkZENPe2v0qA85YL zbNbzF0/lRuCjpWdiLw0XMCMUSOLcfNR597E0czTjyloAsNCGLlbgx6tqZlRU8/MnluDkejdhmgB//CT aUITc/a4PJV/LL+Yu3fg pJbm4nHKiU5NObEMPT6eNpEEMz1WwaETPCPGt8PtZUkpUWZAFE5tUch3k4xMIFOmBW5+tSclB3s4TyWp HX6MmAbAKp56Od8giXsv 65gkm5mlMQJTDegdk3y67RXnL+i1KPAFIltmQGgt0EA2rmIFT7GUBFqyx1AQQOczJlNK2fTllWBUwVsK NjYxuZZlBXn4nSI5UnOn ScmwdLlFDvw9wd2lghkREWrewiSvAj9IZJzQVIj1pkdus0qx34Pj8QzfzCDEYQUlvwe18dRP3CmjO+XH KcPx3F3rq4yAnZxo0kHb lSZQrKGXep+MrTM3cf05HVnu1pLyoIdwc33LRN+3zFVFDCDamPG8HoiYhUIMyPKSsfgrbKbVh2FhGBWa 5WYkOHmvN9wI7jhHu4G3 R9ZioUg0my2sTjhRycJd4XAZFlJm+ToJPJQszKtZjEPP4boYMJBJFTJsaTW1E+NE6C3HAFIU6ebCFNPp QmVAOLt7xkQjz9XacFe7 FhjTVuiRWfgNWHMSRfhZgduscwJSof0BXTP7bhWLPUUKrV7pOh8LXSsrQ9o3uUrjXkDHF6Z37iYBaK0p cU0bt8lIKuebxAxB4SdD RlclvDUytgREFwoWYhfxHcUAbtJjBA1JqWIQ8MbQOBhWC5sFSgHs3Adk6IZB+Dj9ev1c+1vmQI1sefZD Ug0Ezk69pXMv/iIIGcUA PDCmJfxTzPOv0W5R/kyJ2lvYJ/qhwwtPnphYMXpcxlBFk8lgVhWAoAxkHgjOnQxYkN3Srnul6wyM9PSo 3c+UKiuNvMOml548/k5V lHXzqPHPvamjsSegBL8VcHkkLn3IfhoB7zt7tlPquRbavgH3U6b7QIWymdYNQlCVAussSFCXd26PSxlK RagBJJHcSCKNFChzISwK zdTHSngCQQqBNNSwZVSIF5o1obJ8iPlmE9YZxbenzYh4DxLAtHuvSlMSqRcFtp7MDCZMenSrQcCjTjQ6 3iwc9xglMEeWP+93FQGj pzS6QtkqfWEz1avLas3hvAhZFzzsIWmowVlbDPCZCgYkwkbEB0z3xF0FeBKcJUwIzS6LMRwle2lW17j5 dAZf8ELw3FcYKQFfBgNX kicDzOjFHrQOTFOrgEpm33r3o8eFBEPo1mcZzo4GFWNL9CBJAHc+P3giDZGDPTBCIXTNXLYEKDRHYCOm 51fUYiJD9nvg0+1yCJDA SyHB6BWvbKHmOTJrWbjdfZU+JwR8CBEjktrJvRHQ6EIEPx+WlbhC3ffXESQCC95ZfViHTabGWjfRc2m5 VfKO8hM6LzG07YD6bQyb 5b5v9zaDq7TfnsPnBRTNpNepClmwAmsZV4YB0DISeZPWo4y0tFEs3Zsm3BZn8v3Ieq7YZvCpyjCa5anA PFAEi6/o0cIj2LCC9FXQ ZkYlI7iGz/e+X/e214DKBdKIsvnS5KBQyDRG35qMLbUCRhUQE+7RKAS5QZrhaQGyujZFuyxCm5ojwdT9 aDK1hWz9qBEE8FQpXNFi SvmMGQEpxBLWUf35XpbZNHMCp95MwO7K0/m1jXunXGLftkumFHV70xKN2kzAJUXa744iccSZGfvFyTLw vpjhAxmmRt770LMQBXWI XQFyCtT7EL6dCLwQ+dqdNQKUgV2zWB3ca508ticta3n3glPbTFx7CjS93N+zdMoneQ2Pp+o51HvZJ3wp +yjFauNuBwx5HrmKGzk0 YiXOGuDU5vqGWOl+WyxbhctBIsUyW+YPwdoJLamfDhxGTNbPXHsuLMqXSY7J2v7+wmMxEtDOGClZmUmN FBK/DTDVxX6UgZTWjJ2X Hhohb4Plfs8peM6sdrcRC1NTWObFT2CROWlaWY8XNEq7/yaAOb1/f3X6gVpz0QoR3JUPGZiirAmpDCJk BkcHOcGgDm4/ymRaYe2j 9o19XPESl1ko7dqGYAhf5CBDDlCkZfGNqCYvb7qESmXJCUjPNO8X2jbA4OnmTDqBQ6JgaHTvomsvKiu+ WgDW/2L0zNBPMu+WJYpP etw4h8Ucqz/ppqY2X4F4CpYLGLcZqHBLxVu+wAZDJncAdanYfThTMWjHX9F8S9fVpZTRV4gUcfl0YFy9 919a3pJf8vpUCIksqfpb 7zVSBYj7S8h7wyOlL3sIQ7f+jXAfTplZJZLCRvMIRYlZJYnjdlRcqpXKkKOozzmgCu/zC7mHEDFyktWC z5NZBjoqZJ83jc3WMEVB MKWqdTXAsxgPHK29ikcmqW1rwqya1p0drkzgNR13KEazczIHEkCSI4tPfPOCeH+Tgm6NFpbDVrmRh0bK bvTD5un3e4SETDPVErsp KGqYlKQKBCi22DMgehFmOys6G4WLuamQf/GSgwfGM7sJU25PONDHNTSN6cbpmz0n46fVLHLAkgFQVlND 8qqk6jfWzvxBZMJjAkGg yADFAGXb/ZU4vum6f9xISaj3GbDehKVQeNiiL9PE/JbanvdMgs1YgLIM45+Dz4uHM9y5fvhtpreklZfI U1QJxVT0kft1UgADC9Xj netCxS0BU7jN0WA4vswt+PJWP8PuldFul2TJNSW1a7DMtT5Ewg8x7VKAxGDLHNQOAUZWVsd3iEdqpJ8y cp14Whad1kDktYXk+HAc cBR4dODzeN/WeQxx1iEt5dldhM6lCgzLl5QCnogHhcUIWxZoI9NR3iMBmwj2r025N1fVWPbfBQF6QO7A O1kt4/mU0ukxV+blt6AZ +UTHTZv4Pw3b9rPOKdSwiE3HCdiKfc84Hx7f9m5nR+gzSHG7kmVEIV6gaBrgkoKlLuBE6Pp5hHf6GFpE u82M3mOiZUihYkmqYL9n 13lnZRvLPBtRSka3r0ShW4JFTUTcXlXWjuUTBof8FbPpyFuDQSzTIHUadPLtOnTePvfGgHEXEEUGh8+Z mxkRzNTzpB7OV7vjO0f4 bdiPsvtMqbdxPXCQz76oWUMf1EDJD4CTglMQ7kouWqHmt6pOSf5CySVfdpOjkazhvY6EPc8qERK1VVUE mgDN/7B5O47oOivBOztr lKdbUgxDHveEQ9ssjGDIJfmxVsbSVwU3OcDhmjVnsDLRhH7s8723+AI4iUuE12cXGGm2kRSL3fYyWR7T taYIQWUoZa9KgooiAiFU WKkdleWLKyEzmo5BBcjJ7eCcK3IktRHQGBNIIb9PTE6yB3sXoYfnPecRzzYmsVq5xO1ZzY0LqazShVdW xZiANj+GHyffcfgZ9e3P O72yDieeRim6fBDerloiuLyNBlfIWnWKNWq3C5GZkJFhPO12wNEaJtIPD8Zp8xoewXZuP8PBCPBnlKLO m1OWY8JLYWJNDATVaDC7 nZ65n93etcrxpR+OclKjuytdRjvnmf9NGXJUiu2ERyFLWmsPCwbwKLG3UUCzFYqEjcqbqpPi3Gklxp5Y YY2wYhPWjbWWkDr8FmzM lwhDLlhbtH5nKIzkxD/LTw4IxOvhI84J8zDJmLXg8BnkgKOozTglgp0qhUH5MK6qHddChzQnLXQrG3cW dXjpmnDRMzkQetK6WY8X 70lGB83naUl4maQLhLaMoEBIWn1x10/LV5O4qzeR6eBRU0SoVyWAdAgp2O4MlDbpnPLeU0TM9YsM1dCI quk848EqsSlfVSWLzLck yCwjZhvPLOAzYzQAT+JxFo9ge7lE2QVSU8YahSwYZWFvH2k3yJYYAoOswZCnlJWC70gfov0h8dNXubIe LJVHDrs6eNt4bJYV1aFv Qm8bH9CIDOoZM7zcu3wpzk779XCGF0D7E4gMeKbpVnYuvEIMcdWZAuCY9FpWJb+X5ByJW7gyxXmPLP2f savP+5znONZZgL2Lgkld 1Y8HUMLfSAt60mKz5lWF6KG75Z6xSIYp2RvrgTRyZaJit2t3zEoj6tdbZD/fLahNyvA3a98Ojsx/coxt Br6VqyjdGPZOBGhm2Jji 5ANAGja+ALXM74pGIv+jUYDmHnx7oyN/wXbKFQJ2gQGdkXceZanxW2d2JHUymKEYdR9lzvDlbCzORIPn /AhLJhE3iItFSRuUFayj TelxRzMomP7r/vvEUUMBk+xH6xtylc6akAKlcuzUCgjlnrvM9fjNJOrFEb5yJ3JJVnBZo22EDCZSC4Y8 X7stqF92e9NCqFUq7XjQ MDNnyU0jxIw/5UtirGoLrZ7gwrHsPiFOS0D1St3Tfp28I4Ymuc5p4VBQ/Zym+cNPI0u7Ejmq0j95C0Uk uUgqbFSt1QlshnjDa12J yQhACVrhf6xjRthxSF8tjAgJS3unk1mgn93dEFZbIVaKrvXmB/f5A0TnIHZ7Le9o3ig5svAVlnvP73Tn oUZmjlIoIpuZOG5UYN3u sMV6AzClFNS36AXMaN4m4620XiqsmiYdWbtWIvFS1U15rG53H/EAMvOpcuPjN5zbh3dzHN70d0aoCj8G 9uzEsxjgBiYROEhWBiNw az9o1n6QcDVvJX2YO7Db5zHwKJsjBY30NCbsLktPkeSmHeWJjxBlpWkAYicnSEeHJHSaR3+tW4pga1tV n76FLlqF6+eWBtlnFKN2 nDSpVqleF5LUhbrZOP4oktrWA1uRDtzEQ7whZbUZB2r3mDedhTHGe4ux14ntUAPQVKlfQY50sEqCRZNb AoAKACgAoAKAPNfFEF/f 07sPetovXCq1czh3aw39MiSY09XMecrEEfIKpb+vMLQfCzfEd0ARKW/KN5y6cGmGQmkjJKJT6yBfmH5G 2X9D67JdnZV6qay4zVh3 xd+IQYKBLQbGXHApFGL4KVynhYYHCorElqej3ADYOfqG8imO2ShXIntg5nRhOJApNpNKMMIMEUrj6HSc Ju8yuWi23VJz/z42TJea bH7dqqmm/HfDyL6pfZ027NEiVWiKF3MLouhpzvLiPaxdtZMES7bv8kT9uHgFGhryqpECHF0PG9/lyqxX P7srXVLQp7suCI89f72Q xjHGcBubKL7J77rndZXNCmlpxq1QFPjKwZ3mBaJbKBTt+QYIsQIvmbQtM15g9pOZb3V7wPxdmG31JGuL gvJQFC060bPXypyYVO8g NW5jKxD/ydT4Xiwuev43pjSsiEinRfo32uAYQ6FezoXMIDDyZbszsYbiqzRdv21o6n/YcWzqyu/nGdpJ Tj8dxGKlLUudHTg1BIOW 6ILatDvJtHqeWqA87CChNoY6WmTQlMoLJgqh+NVZnKNAklyTihPJYNFPqtSo10rHHTWhRrYQRGoMmRXD XaWaEesKhY3hpn3olrqF GNsbIS20sx8TOKObwJpwiQ3jbE9JqGYcE+TlCndr6jLbCBLOjFNUKAy2ig3BGKmsKMPYQeyxY7bAjOb4 NfPgsv3W/bmeUx+cLQzt crS9mECm3SF2VlsjXpnWZRJrwk0OWuZefHWfWrPVWwEIjEmvr4eDOuNXIH/hGjJH4rDtP5eXAmtAbpbA w8Xz3RlhEvD5V22NuF+f oU2veK6hASUyHyqFPEqB5MAuE53OXpZSIq8Q8mz8P206okjEc4nElBLpdgxlA2MGxJqIWex2YRrkg1SX MuZ7cvrELocxBd9T4r35 VH188qSnU0aRmqT7v72oQLnUEbBTtXYEv9DET87A4hSuaAxwh+SE4AdxBZZ7VfhHx0lvtsI70Zc8EN9C e1KUDAObCngdyycdH9wc rhvCMqznR9KTMUiBfugbSkineYqRijGxLIJvX8xNLW7CCoChKs2H9abRP5qW9RhyshQJ63LJla+2RrdQ hWoiOxzD8KWaczMkM4b5 wySQg0ar1d9sDimeCODe8flShovbK9WJzxHZh9Wq8ZQrQBbM31FKdTzASjZvRGFYidrMqoMQLyoxvJO5 QEACZimlF7NK7AOgXSSm VxAfEFSiWtMaUTZJWO2Hla7BVgDLq2zVxDfjDWfSK2teTF2rVvH20XJ2YHMCPAkMzPM2YED0fVXnZMXM AFABQAUAFABQAUAFABQA 44AQAlDLLCjMgIShYlyoPG2ww3DUPUAFzDOGux4Nz9UvqJI2uLK+zNPpE4tjblxaOXTRTIhLcxTTHkhW fOpRNKS3dBNx6COpT/wA +bZB3WhyOU7SDKQQASBLTVPEQRCQCNLOMWHhCeKmKdoDU81YKiJ7skDnTmnZ79G6qnPTHOf1KBVIHyiW UKYntQDMGAIK37LNHTCw m6KDkhG9Vc0PL2I37XXqfWX5DG4/AbXUAbOrXKPX5sZtLQVLwQ//Z></span></div><div styl e=text-align:center>
</div><div style=text-align:left>Patient Name: <span class=clinicalNoteMacroHighlighted id=[id number] macroname=PatientName spantype=macro title=#PatientName>LINDA GROOME</span></div><div style=text-align:left>MRN#: <span class=clinicalNoteMacroHighlighted id=[id number] macroname=&quot ;PatientMRN spantype=macro title=#PatientMRN>[id number]</span></div><div style=text-align:left>Location: <span class=clinicalNoteMacroHighlighted id=[id number] macroname=AppointmentLocation spantype=macro title=#AppointmentLocation>[facility]</span></div><div style=text- align:left>: <span class=clinicalNoteMacroHighlighted id=[id number] macroname=PatientDateOfBirth spantype=macro title=#PatientDateOfBirth>1945</span></div><div style=text- align:left>Seen By: CHELSEA Heck</div><div style=text- align:left>Attending Provider: <span class=clinicalNoteMacroHighlighted id=[id number] macroname=AttendingPhysician jerrod eters=ShowSpecialty:No spantype=macro title=#AttendingPhysician(ShowSp ecialty:No)>Brigitte Acevedo</span></div><div style=text-align:left>Date of Service: <span class=clinicalNoteMacroHighlighted id=macro_[id number] macroname=EffectiveDate spantype=macro title=#Ef fectiveDate>12/01/2024</span></div><div style=text-align:left&gt ;
</div><div style=text-align:left>
</div><div style=text- align:left><span class=clinicalNoteSectionShowSeparators clinicalNo teSectionVisible id=[id number] internalbreaksection=false&quot ; originalname=Referring Physician: recognizeconcepts=true spantype=s ection suppressempty=false>Referring Physician: </span>
<span class=clinicalNoteMacroHighlighted id=[id number] macroname=&quo t;ReferringPhysician spantype=macro title=#ReferringPhysician>[facility]span></div><div style=text- align:left>
</div><div style=text-align:left><span cl ass=clinicalNoteSectionShowSeparators clinicalNoteSectionVisible id=[id number] internalbreaksection=false originalname=Surgeon: recognizeconcepts=true spantype=section suppressempty=true>Surgeon: </span>
</div><div style=text-align:left>
</div><div style=text-align:left><span class=clinicalNoteSectionShowSeparators clinicalNoteSectionVisible id=[id number] internalbreaksection=false originalname=Reason for Visit: recognizeconcepts=true spantype="section suppressempty=false>Reason for Visit: </span>
Monoclonal gammopathy.</div><div style=text-align:left>
</div><div style=text- align:left><span class=clinicalNoteSectionShowSeparators clin icalNoteSectionVisible id=[id number] internalbreaksection=fal se originalname=History of Present Illness: recognizeconcepts=true sp antype=section suppressempty=false>History of Present Illness: </span& gt;
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 She is here for further evaluation. </li></ol></div><div style=text-align:left>
</di v><div style=text-align:left><span class=clinicalNoteSectionShowSeparators clinicalNoteSectionVisible id=[id number] internalbreaksection=&q uot;false originalname=Interval History: recognizeconcepts=true spanty pe=section suppressempty=false>Interval History:</span>
<div style=text-align:left>Ms. Mcpherson presents to the clinic today for follow up evaluation regarding her monoclonal gammopathy. She continues to receive Vitamin B12 injections, every 2 months

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
Denies medical changes and follows closely with PCP and cardiology
</div></div><div style=text-align:left>
</div><div style=text-align:left"><span class=clinicalNoteSectionShowSeparators clinicalNoteSectionVisible id="[id number] internalbreaksection=false originalname=Past Medical History: recognizeconcepts=true spantype=section suppressempty=false>Past Medical History: </span>
<div style=text-align:left><ol> <li style=margin: 0in 0in 0.0001pt;>Hypertension.</li> <li style=margin: 0in 0in 0.0001pt;>Hyperlipidemia.</li> <li style="margin: 0in 0in 0.0001pt;>TIA.</li> <li style=margin: 0in 0in 0.0001pt;">Obesity.</li> <li style=margin: 0in 0in 0.0001pt;>Overactive bladder.</li> <li style=margin: 0in 0in 0.0001pt;>Degenerative joint disease.</li> <li style=margin: 0in 0in 0.0001pt;>Lumbar radiculopathy.</li> <li style=margin: 0in 0in 0.0001pt;>Paresthesia.</li> <li style=margin: 0in0in 0.0001pt;>GERD.</li> <li style=margin: 0in 0in 0.0001pt;>Lymphe joanna. </li> <li style=margin: 0in 0in 0.0001pt;>Bursitis.</li> <li style=margin: 0in 0in 0.0001pt;>Headache.</li> <li style=margin: 0in 0in 0.0001pt;>Reactive airway disease.</li> <li style=margin: 0in 0in 0.0001pt;>Gout.</li> <li style=margin: 0in 0in 0.0001pt;>Pulmonary nodule.</li> <li style=margin: 0in 0in 0.0001pt;>Impaired fasting glucose. </li> <li style=margin: 0in 0in 0.0001pt;>Chronic back pain.</li> <li style=margin: 0in 0in 0.0001pt;>Elevated liver function tests and alkaline phosphatase.</li> <li style=margin: 0in 0in 0.0001pt;>Chest pain evaluation on 04/02/19 at [facility].</li> <li style=margin: 0in 0in 0.0001pt;>Cataracts.</li> <li style=margin: 0in 0in 0.0001pt;>Bronchitis.</li> <li style=margin: 0in 0in 0.0001pt;>07/07/2019 bone survey showed no convincing evidence of lytic bone lesion and chronic/degenerative findings of the spine </li> <li style=margin:0in 0in 0.0001pt;>07/14/2019 pt was seen at [facility] ER for RLE and right sided back pain </li> <li style=margin: 0in 0in 0.0001pt;>07/21/2019CT bx bone marrow path: Normocellular trilineage bone marrow with absent iron stores and no evidence of a plasma cell neoplasm. </li></ol></div></div><div style="text- align:left>
</div><div style=text-align:left><span class=clinicalNoteSectionShowSeparators clinicalNoteSectionVisible id=[id number] internalbreaksection=false originalname=Past Surgical History: recognizeconcepts=true spantype=section suppressempty=false>Past Surgical History: </span>
<span style=font-size:12px></span><ol> <li style=margin:0in 0in 0.0001pt><span style=font-family:[place],Helvetica,sans-serif><span style=font-size:12px><span style=color:black>Cholecystectomy.</span></span></span></li><li style=margin:0in 0in 0.0001pt><span style=font-family:[place],Helvetica,sans- serif><span style=font-size:12px><span style=color:black&q uot;>Hemorrhoidectomy.</span></span></span></li> <li style=margin:0in 0in 0.0001pt><span style=font-family:[place],Helvetica,sans-serif><span style=font-size:12px><span style=color:black>Benign cysts inthe breast removal.</span></span></span></li> <li style=margin:0in0in 0.0001pt><span style=font-family:[place],Helvetica,sans-serif><spanstyle=font-size:12px><span style=color:black>Right arthroscopy.</span></span></span></li> <li style=margin:0in 0in 0.0001pt><span style=font-family:[place],Helvetica,sans-serif><span style=font-size:1 2px><span style=color:black>Colonoscopy on 07/17/[address] Brown </ span></span></span></li> <li style=margin:0in 0in 0.0001pt><span style=font-family:[place],Helvetica,sans-serif><span style=font-size:12 px><span style=color:black>Endoscopy on 03/30/18.</span></span&g t;</span></li> <li style=margin:0in 0in 0.0001pt><span style= font-family:[place],Helvetica,sans-serif><span style=font-size:12px><span style=color:black>Steroid injection epidural 09/2018.</span></span></span></li> <li style=margin:0in 0in 0.0001pt><span style=font-fa guerrero:[place],Helvetica,sans-serif><span style=font-size:12px><span style =color:black>Right SI joint Steroid injection on 08/04/2019</span></span>& lt;/span></li></ol></div><div style=text-align:left>
</div><div style=text-align:left><span class=clinicalNoteSectionShowSeparators clinicalNoteSectionVisible id=[id number] internalbreaks ection=false originalname=Medications: recognizeconcepts=true s pantype=section suppressempty=false>Medications: </span>
As reviewed below.</div><div style=text-align:left>
</div><div style=text- align:left><span class=clinicalNoteSectionShowSeparators clin icalNoteSectionVisible id=[id number] internalbreaksection=fals e originalname=Social History: recognizeconcepts=true spantype=section suppressempty=false>Social History: </span>
She is a . She has a grownup son and a daughter. She is retired and lives in [place] by herself. She has never smoked and does not abuse alcohol or drugs. She doeswalking regularly and exercises at [facility] three times a week.</div><div style=text-align:left>
</div><div style=text-align:left><span class=clinicalNoteSectionShowSeparators clinicalNoteSectionVisible id=[id number] internalbreaksection=false originalname=Family History: recognizeconcepts=true spantype=section suppressempty=false">Family History: </span>
<span class=clinicalNoteMacroHighlighted" id=[id number] macroname=FamilyHistory parameters=ListTyp e:Bulleted,ShowComments:Yes spantype=macro title=#FamilyHistory(ListType:Bul leted,ShowComments:Yes)> </span></div><div style=text- align:left>
</div><div style=text-align:left><span class=clinicalNoteSectionShowSeparators clinicalNoteSectionVisible id=addie [id number] internalbreaksection=false originalname=Review of Syste ms recognizeconcepts=true spantype=section suppressempty=false&q uot;>Review of Systems:</span>
<div>HEENT: Denies blurred vision, tinnitus, dysphagia, sinus problems, and sore throat.<div>CARDIOVASCULAR: <span> </span>Denies angina, chest tightness, SOB, EF, PND, orthopnea, edema.</div><div>PULMONARY: Denies cough, hemoptysis, pleurisy, chest pain, wheezing.</div><div>GASTROINTESTINAL: Denies nausea, vomiting, constipation, diarrhea, melena, hematemesis, bloating.</div><div>GENITOURINARY: Denies dysuria, frequency, hematuria, straining, discharge.</div><div>MUSCULOSKELETAL: Denies joint swelling, joint pain,muscle swelling or tenderness.</div><div>NEUROLOGIC: Denies headache, double vision, balance problems, sensory changes or motor weakness.
PSYCHIATRIC: No depression, no anxiety, concentration normal.
</div><div>
</div>
</div></div><div style=text-align:left>
</div><div style=text-align:left><span class=clinicalNoteSectionShowSeparators clinicalNoteSectionVisible id=[id number] internalbreaksection=false originalname=Physical Exam recognizeconcepts=true spantype=section suppressempty=false>Physical Exam:</span>
<div>GENERAL: Well developed, well built, well nourished, not in any acute distress.</div><div>VITAL SIGNS: Stable.</div><div>HEENT: Normocephalic. Pupils are bilaterally round and reacti ng to light equally. Oral mucosa is moist, no ulcer seen, no thrush.</div><div>NECK: Supple.</div><div>HEENT: Peerless conjunctivae. No icterus, no JVD. Oropharynx is negative.<div>HEART: Regular rate and rhythm without murmurs.</div><div>LUNGS: Clear to auscultation and percussion.</div><div>SPINE: Without percussion tenderness.</div><div>ABDOMEN: Without hepatosplenomegaly. There are no masses present.</div><div>EXTREMITIES: No clubbing, cyanosis or edema is noted.</div><div>LYMPH NODES: There are no palpably enlarged nodes in any of the superficial drainage areas in the neck, supraclavicular, infraclavic ular, axillary, epitrochlear</div><div>NEUROLOGICAL: A full neurological examination was not performed. </div>
</div><div>PSYCHIATRIC: Mood and affect are appropriate.</div></div><div style=text-align:left><span class=clinicalNoteSectionShowSeparators clinicalNoteSectionVisible id=[id number] internalbreaksection=false originalname=Advanced Care Planning: recognizeconcepts=true spantype=section suppressempty=false">Advanced Care Planning:</span>

</div><div style=text-align:left><span class=clinicalNoteSectionShowSeparators clinicalNoteSectionVisible id=[id number] internalbreaksection=falseoriginalname=Labs: recognizeconcepts=true spantype=section suppressempty=false>Laboratory Data:</span>
<div style=text-align:left><ul> <li>CBC on 02/26/19 as normal. BMP shows a creatinine of 1.13 and GFR is 55. </li> <li>LFTs are normal on 01/20/19 and 08/21/18. Serum immunoelectrophoresis shows IgG kappa monoclonal protein on 02/25/19. </li> <li>LFTs are normal on 03/18/19. C</li> <li>BC on 04/06/19 is normal. CMP is normal except for GFR of 53 mL/min. Serum immunofixation shows M-spike IgG kappa 0.21 g/dL. Serum free light chain assay shows 40 mg/L kappa light chain with ratioof 2.3, elevated. SIEP 0.2 Mspike</li> <li>Labs on 12/02/19: CBC - WBC 6.47, Hgb 4.90, Hct 13.3, PLT 237 CMP WNL Anemia labs - Iron sat % 31.07, Ferritin 60.2, Vit B12 294 Mspike 0.19</li> <li>Labs on 03/29/20: CBC - WBC 8.0, Hgb 13.0, Hct 40.9, PLT 277 CMP WNL Anemia labs Iron sat % 17.94, Ferritin 75.8 Mspike 0.22</li> <li>CBC on 08/03/20: WBC 6.8; HGB 15.0; HCT 46.1; PLT 265. CMP shows Creatinine 1.390; GFR 36.96. Vitamin D normal at 50.61. Iron sat. 20.52%; ferritin 37.9. Free kappa lt chain 39.57; free lambda lt chain 26.97; K:L ratio 1.47. Previously identified paraprotein detected in gamma region. Was .22 gm/dL, now .18 gm/dL.</li> <li>CBC on 11/23/20: WBC 7.25 ; HGB 15.9; HCT 49.1; PLT 257.</li> <li>CBC on 03/15/21: WBC 7.0; HGB 15.7; HCT 47.7; PLT 287. CMP reveals glucose 180; Creatinine 1.410; GFR 36.26. Iron profile WNL. M-spike protein 0.19. </li> <li>CBC on 07/19/21: WBC 7.8; HGB 15.9; HCT 48.2; PLT 256. CMP reveals glucose 108; BUN 25; Creatinine 1.430; GFR 35.68. Iron profile WNL. M-spike protein 0.17. </li> <li>CBC 11/15/21: WBC 9.5, RBC 55, HGB 15.6,HCT 47.6, PLT 339, ANC 7.10 CMP: Glu 155, BUN 32, Creat 1.3500, GFR MADISYN 38.13, NML otherwise Iron sat 38.06, Ferritin 116.7, Vitamin B12 777.00 SPEP: alpha 1% 4.90, alpha 2% 15.40, M-Riky 0.20. [place] light chain 33.34, lambda light chain 14.01</li> <li>CBC 03/13/22: WBC 7.4, RBC 5.48, HGB 15.9, HCT 47.6, PLT 248 CMP: Glu 146, BUN 26, Creat 1.240, GFR MADISYN 41.94, NML otherwise Iron sat 54.67, Ferritin 109.3 SPEP: alpha 1% 4.80, alpha 2% 15.30, M-Riky 0.20</li> <li>CBC 08/29/22: WBC 8.2, RBC 5.38, HGB 15.3, HCT 47.0, PLT 276k CMP: glucose 118, BUN 32, creatinine 1.410 Iron sat 46.10%, Ferritin 219.1 SPEP: alpha 1% 5.10, alpha 2% 15.60</li> <li>CBC 12/19/22: WBC 10.0, RBC 5.12, HGB 15.1, HCT 46.2, PLT 282k, ANC 7.47 CMP: glucose 113, BUN 27, ALT 61, NML otherwise Iron sat41.18%, Ferritin 183.8 IgG 668, IgA 113, IgM 78 M-spike 0.11, SPEP: Monoclonal IgG kappa band detected, previously identified paraprotein detected in gamma region. Was 0.15 gm/dL, now 0.11 gm/dL. [place] light chain 50.52, Lambda light chain 17.53</li> <li>CBC 03/13/23: WBC 7.2, RBC 5.10, HGB 15.1, HCT 46.5, PLT 249k CMP: glucose 103, B UN 32, NML Vitamin D 67.00 Iron sat 40.06%, Ferritin 226.6 IgG 620, IgA 101, IgM 103 M-spike 0.15, SPEP: Monoclonal IgG kappa band detected, previously identified paraprotein detected in gamma region. Was 0.15 gm/dL, now 0.11 gm/dL, [place] light chain 51.36, Lambda light chain 16.07</li> <li>12/04/23- CBC: WBC8.6, HGB 13, HCT 40.1, PLT 288 CMP: BUN 24, otherwise WNL TIBC 279, Ferritin 163, Iron sat 36.20% IgG, IgA, IgM WNL M- spike 0.14, [place] LC 40.25, Lambda LC 12.19, Previously identified paraprotein detected in gamma region. Was 0.11 gm/dL, now 0.14 gm/dL. Monoclonal IgG kappa band detected.</li> <li>02/26/24- CBC: WBC 6.9,HGB 12.9, HCT 40, PLT 226 </li></ul></div></div><div style="text- align:left>
</div><div style=text-align:left><span class=clinicalNoteSectionShowSeparators clinicalNoteSectionVisible id=[id number] internalbreaksection=false originalname=Radiologic Data:" recognizeconcepts=true spantype=section suppressempty=true>Radiologic Data:</span>
<div style=text- align:left><ul> <li>MRI 08/2018</li> <li>07/07/2019 bone survey showed no convincing evidence of lytic bone lesion and chronic/degenerative findings of the spine </li> <li>07/21/2019 CT bx bone marrow diagnostic. Blood smear showed no diagnostic abnormality. Normocellular trilineagebone marrow with absent iron stores and no evidence of a plasma cell neoplasm.</li> <li> 05/25/2020 BLE PVL: Negative for DVT.</li> <li>CT Heart 09/13/22: Agatston calcium score of 5297. No significant incidental findings.</li> <li>Stress Test 10/15/22: No evidence of reversible myocardial ischemia. Ejection fraction calculated at 95%. This is a low risk study.</li> <li>PVL 11/25/22: No evidence of acute superficial or deep vein thrombosis noted ineither lower extremity. No evidence of venous insufficiency noted bilaterally.</li> <li>DEXA scan 04/03/23: osteopenia left forearm. </li> <li>US abdomen 05/13/23: mild to moderate liver stiffness. </li></ul></div></div><div style="text- align:left>
</div><div style=text-align:left><span class=clinicalNoteSectionShowSeparators clinicalNoteSectionVisible id=sharyn [id number] internalbreaksection=false originalname=Assessment & Plan recognizeconcepts=true spantype=section suppressempty= false>Assessment:</span>
<div style=text-align:left><ol> <li>77-year-old female with IgG kappa monoclonal gammopathy, mild, with no evidence of anemia, and has mild renal insufficiency. Pt's bone marrow bx was negative for myeloma 07/21/2019.She is doing well. </li> <li>Vitamin B12 deficiency 12/02/2019. On monthly SC supplementation starting 07/04/21.</li></ol></div></div><div style=text-align:left>
</div><div style=text-align:left><span c lass=clinicalNoteSectionShowSeparators clinicalNoteSectionVisible id=[id number] internalbreaksection=false originalname=Plan recognizeconcepts=true spantype=section suppressempty=false>Plan:</span >
<div style=text-align:left><ol> <li>Reviewed CBC 12/01/24: normal, SPEP, B 12 and iron studies are pending from today, will contact with abnormal results.</li> <li><span style=background-color:inherit; color:inherit; font-family:inherit; font-size:inherit; font-style:inherit; font- weight:inherit>Continue Vitamin B12 SC injections q8 weeks. </span>
</li> <li>Teaching sheet for MGUS reviewed and provided for patient. </li> <li>Continue to monitor with CBC, CMP, Ironprofile, Ferritin, Vitamin D, ELVIA/SPEP and FLCA labs q. 4 months and prior to next visit.</li> <li>Return for follow up in 12 months, or sooner if necessary. </li><li><span style=font-family:Times New Mo; font-size:7pt; font-stretch:normal; mrjz-qcwliqp-rwtw-:normal; jpmu-nmyhnne-gzkavfj:normal; line-height:normal"> </span><span style=color:windowtext; font-family:deanne Lewis; font-size:9pt; text-indent:-0.25in>All her questions have been answered to her satisfaction. She was asked to call if she has any new concerns or symptoms in the interim and I can seeher sooner.</span></li></ol></div><div style=text-align:left><div style=font- family:[place] Unicode MS,deanne Lewis>&l t;br></div><div>
</div></div></div><div style=text- align:left>
</div><div style=text-align:left>
</div><div style=text-align:left><span class=clinicalNoteSectionShowSeparators clinicalNoteSectionVisible id=[id number] internalbreakse ction=false originalname=Health Maintenance recognizeconcepts=true" spantype=section suppressempty=false>Health Maintenance:</span>
<span class=clinicalNoteMacroHighlighted id=[id number]" macroname=PatientSmokingStatus spantype=macro title=#PatientSmoking Status>Smoking Tobacco : Never smoker; Smokeless Tobacco : none found; Vaping : none found</span></div><div style=text-align:left><span class=clinicalNo teMacroHighlighted id=[id number] macroname=Immunizations pa rameters=ListType:Bulleted spantype=macro title=#Immunizations(ListTyp e:Bulleted)><ul> <li>Flu vaccine - Adult (2019), Elsewhere</li> <li>Flu vaccine - Adult (02/26/2019), Elsewhere</li> <li>Pneumococcal vaccine (Unspecifiedformulation) (03/09/2013), Elsewhere</li> <li>Zoster Recombinant, Adjuvanted vaccine (12/24/2018), Elsewhere</li> <li>Zoster vaccine (09/08/2018), Elsewhere</li></ul></span></div><div style=text-align:left><span class=clinicalNoteMacroHighlighted id=[id number] macroname=Screenings parameters=ListType:Bulleted spantype=macro title=#Screenings(ListType:Bulleted)><ul> <li>Colonoscopy on 07/17/2017</li> <li>Mammogram - Screening (bilateral) on 10/02/2018</li></ul></span></div><div style="text-align:left>
</div><div style=text-align:left><span class=clinicalNoteSectionShowSeparators clinicalNoteSectionVisible id=[id number] internalbreaksection=false originalname=Vital Signs: recognizeconcepts=true spantype=section suppressempty=false>Vital Signs:</span>
<span class=clinicalNoteMacroHighlighted [place] [id number] macroname=PatientHeight parameters=Label:Height:,LookBac kDays:All spantype=macro title=#PatientHeight(Label:Height:,LookBackDays:All )>Height: 61 in</span></div><div style=text-align:left><span class=clinicalNoteMacroHighlighted id=[id number] macroname= PatientWeight parameters=Label:Weight:,LookBackDays:0 spantype=macro" title=#PatientWeight(Label:Weight:,LookBackDays:0)>Weight: 177 lb</span>&l t;/div><div style=text-align:left><span class=clinicalNoteMacroHighlighted id=[id number] macroname=PatientVitalSigns parameters =LookBackDays:0 spantype=macro title=#PatientVitalSigns(LookBackDays:0 )>Blood pressure: 108/67, Sitting, R arm, Regular, Pulse: 74, Temperature: 98.5 F, Respirations: 16, O2 sat: 97%, At Rest, Room Air, Pain Scale: 0, Height: 61 in, Weight: 177 lb, BSA: 1.86, BMI: 33.44 kg/m2</span></div><div style=text- align:left><span class=clinicalNoteMacroHighlighted id=[id number] macroname=KarnofskyStatus parameters=Label:Karnofsky performance status: spantype=macro title=#KarnofskyStatus(Label:Karnofsky performance status:)>Karnofsky performance status: 80% Normal activity with effort; some signs or symptoms of disease. (Date: 07/26/2021)</span></div><div style=text- align:left><span class=clinicalNoteMacroHighlighted id=[id number] macroname=DepressionStatus jerrod eters=Label:Depression Status,LookBackDays:All spantype=macro title=#D epressionStatus(Label:Depression Status,LookBackDays:All)>Depression Status Was screened; Outcome positive: No; Screening Date: 12/01/2024; Screening Tool: PRIME MD-PHQ2; Total depression score: 0</span></div><div style=text-align:left>
</div><div style=text-align:left><span class=clinicalNoteSectionShowSeparators clinicalNoteSectionVisible id=[id number] internalbreaksection=false originalname=Laboratory: recognizeconcepts=true spantype=section suppressempty=false>Laboratory: </span>
<span class=&quo t;clinicalNoteMacroHighlighted id=[id number] macroname=LabSectio n parameters=FlowsheetCategory:CBC,Label:CBC,LookBackDays:14 spantype=macro& quot; title=#LabSection(FlowsheetCategory:CBC,Label:CBC,LookBackDays:14)>CBC<br&gt ;WBC x 10^3/uL : 6.8; RBC x 10^6/uL : 4.72; NRBC, % : 0.00; HGB g/dL : 13.3; HCT % : 41.4; MCV fL :88; MCH pg : 28.2; MCHC g/dL : 32.1; RDW % : 13.1; PLT x 10^3/uL : 248; MPV fL : 9.10; Demond % : 65.8; LY % : 24.3; MO % : 8.1; EO % : 0.3; BA % : 0.3; IG % : 1.20; Demond # (ANC) x 10^3/uL : 4.50; LY # x10^3/uL : 1.66; MO # x 10^3/uL : 0.55; EO # x 10^3/uL : 0.02; BA # x 10^3/uL : 0.02; IG # x 10^3/uL: 0.08</span></div><div style=text-align:left><span class=cli nicalNoteMacroHighlighted id=[id number] macroname=LabSection&quo t; parameters=FlowsheetCategory:Chemistries,LookBackDays:14 spantype=macro t itle=#LabSection(FlowsheetCategory:Chemistries,LookBackDays:14)> & amp;nbsp;</span></div><div style=text-align:left><span class= clinicalNoteMacroHighlighted id=[id number] macroname=LabSection& quot; parameters=FlowsheetCategory:Anemia Labs,LookBackDays:14 spantype=macro" title=#LabSection(FlowsheetCategory:Anemia Labs,LookBackDays:14)> </span></div><div style=text-align:left>
</div><div style=text-align:left><span class=clinicalNoteSectionShowSeparators clinicalNoteSectionVisible id=[id number] internalbreaksection="false originalname=Current Medications: recognizeconcepts=true spantype=section suppressempty=false>Current Medications:</span></div><div style=text- align:left><span class=clinicalNoteMacroHighlighted id=[id number] macroname=PatientMedications parameters=&qu ot;ListType:Bulleted,ValueIfNull:No Known Medications spantype=macro title=# PatientMedications(ListType:Bulleted,ValueIfNull:No Known Medications)><ul> <li>Albuterol HFA Inhaler 90 mcg/actuation inhalation qd</li> <li>Ketoconazole Topical Cream 2 % 2 % cream</li> <li>Calcium 600 + D(3) (Calcium-Cholecalciferol Oral 600 mg-10 mcg(400 unit))</li> <li>Gabapentin Oral 300 mg orally Take 1 pill by mouth in the a.m. andafternoon and 2 pill at night</li> <li>Clotrimazole-Betamethasone Topical Cream 1 %-0.05 %</li> <li>Losartan Oral 100 mg tablet</li> <li>Magnesium Oxide Oral 400 mg magnesium tablet 2 tablet QHS</li> <li>Rosuvastatin Calcium Oral 10 mg tablet</li> <li>Breo Ellipta (Fluticasone-Vilanterol Inhaler 200 mcg-25 mcg/dose)</li> <li>A spirin Oral 81 mg capsule po daily</li> <li>Ezetimibe Oral 10 mg tablet</li> <l i>Febuxostat Oral 40 mg orally </li> <li>Hyoscyamine Oral 0.125 mg tablet 1 tablet orally 4 times per day prn dyspepsia</li> <li>Spironolactone Oral 25 mg tablet </li></ul></span>

<span class=clinicalNoteSectionShowSe parators clinicalNoteSectionVisible id=[id number] internalbreaksection=false originalname=Allergies & Adverse Reactions recognizeconcepts=true spantype=section suppressempty=false>Allergies &a mp; Adverse Reactions:</span>
<span class=clinicalNoteMacroHighlighted id=[id number] macroname=Allergies parameters=ListType:Bulleted spantype=macro title=#Allergies(ListType:Bulleted)><ul><li>doxycycline</li> <li>prednisone</li></ul></span></div><div style=text-align:left><span class=clinicalNoteMacroHighlighted id=[id number] macroname=AdverseEvents parameters=ListType:Bulleted spantype=macro title=#AdverseEvents(ListType:Bulleted)>&a mp;nbsp; </span></div><div style=text-align:left>
</div><div style=text-align:left><span class=clinicalNoteSectionShowSeparators clinicalNoteSectionVisible id=[id number] [employer] intern albreaksection=false originalname=Problem List recognizeconcepts=true" spantype=section suppressempty=false>Problem List:</span>
<span class=clinicalNoteMacroHighlighted id=[id number] macroname=ProblemsTable spantype=macro title=#ProblemsTable><table border=1 style=width:100%> <tbody> <tr> <td ikbih=663pi>Problem</td> <td ztomi=538ig>Principal Dx</td> <td egxfs=524gy>Status</td> <td caacp=881oy>Date</td> </tr> <tr> <td dhwtn=089zo>Monoclonal gammopathy</td> <td ojlkp=314at>Yes</td> <td mzzbv=996ws>Active</td> <td w qvos=717sg>n/a</td> </tr> <tr> <td dpnco=449qu>CKD</td> <td fhqer=208lg>
</td> <td hkrvw=617dc>Active</td> <td kvijo=192fc>n/a</td> </tr> <tr> <td arrzz=514gt>Vitamin B12 deficiency</td> <td jeyfb=609vn>
</td> <td kaerb=942mg>Active</td> <td vglhk=790zu&quot ;>n/a</td> </tr> </tbody></table></span></div><div style="text- align:left>
</div><div style=text-align:left>
</div><div style=text-align:left><span class=clinicalNoteSectionShowSeparators clinicalNoteSectionVisible id=[id number] internal breaksection=false originalname=New Orders recognizeconcepts=true" spantype=section suppressempty=false>New Orders:</span>
<span class=clinicalNoteMacroHighlighted id=[id number] macron jeff=Orders parameters=LookBackDays:0,OrderType:Services,ListType:Bulleted sp antype=macro title=#Orders(LookBackDays:0,OrderType:Services,ListType:Bulleted)"><ul> <li>12/01/2024, RTC MD/MOHAN, Instructions: first couple weeks of october, flexible, Perform Date: Per Instruction, Associated problem(s): Monoclonal gammopathy * (D47.2)</li><li>12/01/2024, RTC nurse for injection, Instructions: b12, Perform Date: 12/24/2024, Associated problem(s): Monoclonal gammopathy * (D47.2)</li> <li>12/01/2024, RTC nurse for injection, Instructions: b12, Perform Date: 02/18/2025, Associated problem(s): Monoclonal gammopathy * (D47.2)</li> <li>12/01/2024, RTC nurse for injection, Instructions: b12, Perform Date: 12/2024, Associated problem(s): Monoclonal gammopathy * (D47.2)</li> <li>12/01/2024, RTCnurse for injection, Instructions: b12, Perform Date: 06/10/2025, Associated problem(s): Monoclonalgammopathy * (D47.2)</li> <li>12/01/2024, RTC nurse for injection, Instructions: b12, Perform Date: 08/05/2025, Associated problem(s): Monoclonal gammopathy * (D47.2)</li> <li> 12/01/2024, RTC nurse for injection, Instructions: b12, Perform Date: 09/30/2025, Associated problem(s): Monoclonal gammopathy * (D47.2)</li></ul></span></div><div style="text-align:left><span class=clinicalNoteMacroHighlighted id=[id number] macroname=Orders parameters=LookBackDays:0,OrderType:Labs,ListType:Bulleted spantype=macro title=#Orders(LookBackDays:0,OrderType:Labs,L istType:Bulleted)><ul> <li>12/01/2024, CBC w/ auto diff, Perform Date: 12/02/19, Associated problem(s): Monoclonal gammopathy * (D47.2)</li> <li>12/01/2024, CBC w/ auto diff, Perform Date: 12/24/2024, Associated problem(s): Monoclonal gammopathy * (D47.2)</li> <li>12/01/2024, CBC w/ auto diff, Perform Date: 02/18/2025, Associated problem(s): Monoclonal gammopathy * (D47.2)</li> <li>12/01/2024, CBC w/ auto diff, Perform Date: 04/15/2025,Associated problem(s): Monoclonal gammopathy * (D47.2)</li> <li>12/01/2024, CBC w/ auto diff, Perform Date: 06/10/2025, Associated problem(s): Monoclonal gammopathy * (D47.2)</li> <li>12/01/2024, CBC w/ auto diff, Perform Date: 08/05/2025, Associated problem(s): Monoclonal gammopathy * (D47.2)</li> <li>12/01/2024, CBC w/ auto diff, Perform Date: 09/30/2025, Associated problem(s): Monoclonal gammopathy * (D47.2)</li> <li>12/01/2024, CMP, Perform Date: 12/01/2024, Associated problem(s): Monoclonal gammopathy * (D47.2)</li> <li>12/01/2024, CMP, Perform Date: 04/15/2025, Associated problem(s): Monoclonal gammopathy * (D47.2)</li><li>12/01/2024, CMP, Perform Date: 09/30/2025, Associated problem(s): Monoclonal gammopathy *(D47.2)</li> <li>12/01/2024, ELVIA and SPEP panel (with QIGS), Perform Date: 12/01/2024, Associated problem(s): Monoclonal gammopathy * (D47.2)</li> <li>12/01/2024, ELVIA and SPEPpanel (with QIGS), Perform Date: 04/15/2025, Associated problem(s): Monoclonal gammopathy * (D47.2)& lt;/li> <li>12/01/2024, ELVIA and SPEP panel (with QIGS), Perform Date: 09/30/2025, Associated problem(s): Monoclonal gammopathy * (D47.2)</li> <li>12/01/2024, Iron, TIBC, Ferritinpanel, Perform Date: 12/01/2024, Associated problem(s): Monoclonal gammopathy * (D47.2)</li> <li>12/01/2024, Iron, TIBC, Ferritin panel, Perform Date: 09/30/2025, Associated problem(s): Monoclonal gammopathy * (D47.2)</li> <li>12/01/2024, [place]/Lambda light chains, free w/ ra leanna, serum, Perform Date: 12/01/2024, Associated problem(s): Monoclonal gammopathy * (D47.2)</li> <li>12/01/2024, [place]/Lambda light chains, free w/ ratio, serum, Perform Date: 04/15/2025, Associated problem(s): Monoclonal gammopathy * (D47.2)</li> <li>12/01/2024, [place]/Lambda light chains, free w/ ratio, serum, Perform Date: 09/30/2025, Associated problem(s): Monoclonal ga mmopathy * (D47.2)</li> <li>12/01/2024, Vitamin B12 and Folate panel, Perform Date: 12/01/2024, Associated problem(s): Monoclonal gammopathy * (D47.2)</li> <li>12/01/2024, Vitamin B12 and Folate panel, Perform Date: 09/30/2025, Associated problem(s): Monoclonal gammopathy * ( D47.2)</li></ul></span></div><div style=text-align:left><span class=clinicalNoteMacroHighlighted id=[id number] macronam e=Orders parameters=LookBackDays:0,OrderType:Imaging,ListType:Bulleted spant ype=macro title=#Orders(LookBackDays:0,OrderType:Imaging,ListType:Bulleted)& gt; </span></div><div style=text-align:left><span class=clinicalNoteMacroHighlighted id=[id number] mac roname=Orders parameters=LookBackDays:0,OrderType:Supplies,ListType:Bulleted spantype=macro title=#Orders(LookBackDays:0,OrderType:Supplies,ListType:Bulleted) > </span></div><div style=text-align:left><span class=clinicalNoteMacroHighlighted id=[id number]" macroname=RxOrders parameters=LookBackDays:0,Verbosity:Medium,ListType:Bulleted spantype=macro title=#RxOrders(LookBackDays:0,Verbosity:Medium,ListType:Bu lleted)> </span></div><div style=text-ali gn:left>
</div><div style=text-align:left>
</div><div style=text- align:left>
</div><div style=text-align:left>
</div><div style=text-align:left><strong>CHELSEA Heck</strong></div><div style=text-align:left>
</div><div style=text-align:left>
</div><div style=text-align:left>Send copy of note to:</div><div style=text-align:left><span class=clinicalNoteMacroHighlighted id=[id number] macroname=NoteRecipients spantype=macro title=#NoteRecipients>Mahin Malloy MD (Referring)
Patient [facility] (Referring)</span>

</div><div style=text-align:left>
</div><div style="text-align:left>
</div>

<div><span class=&q uot;eSignSignature>Electronically signed by Roxi TRAN 12/01/2024 09:48 EDT</span></div>

<div><span class=eSignSignature>Electronically signed by Roxi TRAN 12/01/2024 09:48 EDT
Reviewed and electronically leilani d by Brigitte Acevedo MD 12/20/2024 11:49 EDT</span></div></body></html>
--- OUTSIDE RECORDS SUMMARY | 2025-06-02 12:45 | XMS_ITS | Encounter Summary ---
Author Organization [facility] Address [address] [place] [address] Care Team Providers Care Computer Network Specialist Name Role Phone Mahin Malloy MD Primary Care Provider [phone] Encounter Details Date Type Department Care Team (Late st Contact Info) Description 12/23/2023 Lab Requisition Laboratory [address] [place] [address] Mahin Malloy MD [facility] [address] [place] [address] [address] [place], [place] [id number] Social History Tobacco Use Types Packs/Day Years [...] Description 06/22/2025 9:45 AM EST Office Visit [facility] [address] [place] [address] Timbo Stiles, NELLY [address] [facility] [address] [place] [address] 10/27/2025 9:15 AM EDT Office Visit [facility] [address] [facility] [address] [place] [address] Gurinder Patel MD [address] [facility] [address] [place] [address] documented as of this encounter Procedures Procedure Name Priority Date/Time Associated Diagnosis Comments LAB DRAW FEE - IOP Routine 12/22/2023 10 :46 AM EDT RENAL FUNCTION PANEL Routine 12/22/2023 10:46 AM EDT documented in this encounter Results * Draw Fee - IOP (12/22/2023 10:46 AM EDT) Blood BLOOD / Unknown 12/22/2023 1 0:46 AM EDT 12/23/2023 12:30 AM EDT Mahin Malloy MD LAB CHEMISTRY ORDERABLES Final Result [facility] [address] [place] [address], * (ABNORMAL) Renal Function Panel (12/22/2023 10:46 AM EDT) Sodium 140 133 - 145 mmol/L [facility]- COV-2_ROCH E DIAGNOSTIC S_EUA 12/23/2023 3:[address] [facility] Potassium 4.4 3.5 - 5.5 mmol/L [facility]- COV-2_ROCH E DIAGNOSTIC S_EUA 12/23/2023 3:[address] [facility] Chloride 107 98 - 110 mmol/L [facility]- COV-2_ROCH E DIAGNOSTIC S_EUA 12/23/2023 3:[address] [facility] Glucose 89 70 - 99 mg/dL [facility]- COV-2_ROCH E DIAGNOSTIC S_EUA 12/23/2023 3:[address] [facility] BUN 33(H) 6 - 22 mg/dL [facility]- COV-2_ROCH E DIAGNOSTIC S_EUA 12/23/2023 3:[address] [facility] CO2 22 20 - 32 mmol/L [facility]- COV-2_ROCH E DIAGNOSTIC S_EUA 12/23/2023 3:[address] [facility] Creatinine 1.1 0.8 - 1.4 mg/dL [facility]- COV-2_ROCH E DIAGNOSTIC S_EUA 12/23/2023 3:[address] [facility] Calcium 9.1 8.4 - 10.5 mg/dL [facility]- COV-2_ROCH E DIAGNOSTIC S_EUA 12/23/2023 3:[address] [facility] Albumin 4.0 3.5 - 5.0 g/dL [facility]- COV-2_ROCH E DIAGNOSTIC S_EUA 12/23/2023 3:[address] [facility] Phosphorus 2.7 2.5 - 4.5 mg/dL [facility]- COV-2_ROCH E DIAGNOSTIC S_EUA 12/23/2023 3:[address] [facility] eGFR 49.2(L) >60.0 mL/min/1. 73 sq.m. [facility]TI-SARS- COV-2_ROCH E DIAGNOSTIC S_EUA 12/23/2023 3:[address] [facility] Comment: eGFR calculation based on the Chronic Kidney Disease Epidemiology Collaboration (CKD-EPI) equation refit without adjustment for race. This eGFR is validated for stable chronic renal failure patients. This equation is unreliable in acute illness or patients with normal renal function. Anion Gap 11.0 3.0 - 15.0 mmol/L [facility]- COV-2_ROCH E DIAGNOSTIC S_EUA 12/23/2023 3:[address] [facility] Comment:Anion Gap calculatio n based on electrolyte reference ranges. CORRECTED SERUM CREATININE 1.14 mg/dL [facility]- COV-2_ROCH E DIAGNOSTIC S_EUA 12/23/2023 3:[address] [facility] Blood BLOOD / Unknown 12/22/2023 1 0:46 AM EDT 12/23/2023 12:30 AM EDT Mahin Malloy MD LAB CHEMISTRY ORDERABLES Final Result [facility] [address] [address], [place] [phone] documented in this encounter Visit Diagnoses Not on filedocumented in this encounter Care Teams Computer Network Specialist Relationship Specialty Start Date End Date Mahin Malloy MD [facility] [address] [place] [address] PCP - General 11/18/11 documented as of this encounter
--- OUTSIDE RECORDS SUMMARY | 2025-06-02 12:45 | XMS_ITS | Data Portability ---
Author Organization [place] [facility], MEDICINE - IP Address [id number] [place] [address] Care Team Providers Care Supervisor Case Loading Name Role Phone [facility] - DR. YOSSI CARTER Referring Provider MELISSA MOE Primary Care Provider [phone] Assessment Encounter Date Assessment Date Assessment LastModified by Organization Details LastModified Time 10/07/2024 10/07/2024 The patient pres ents with memory problems and speech difficulties, which seems like mild cognitive disorder. However, given recent onset of symptoms, will do workup to rule out intracranial etiologies. She does have cardiovascular history and previous TIA. [email or web address] Not available 10/07/2024 21:43:11 11/02/2024 11/02/2024 The patient pres ents with memory problems and speech difficulties, which seems like mild cognitive disorder. However, given recent onset of symptoms, will do workup to rule out intracranial etiologies. She does have cardiovascular history and previous TIA. The patient was seen today via telehealth for [facility] result follow-up. Her test did not show any significant deficits in any domain, with normal performance as compared to age controls. She continues to have some word-finding difficulties and speech difficulties. She does have hearing loss which could be contributing. MRI of the brain is still pending. [email or web address] Not available 11/05/2024 00:28:31 11/05/2024 11/05/2024 The patient pres ents with memory problems and speech difficulties, which seems like mild cognitive disorder. However, given recent onset of symptoms, will do workup to rule out intracranial etiologies. She does have cardiovascular history and previous TIA. The patient returns back to the office. The patient did did have a neuropsychological testing done which seems to be normal for age. 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 [email or web address] Not available 11/05/2024 11:30:59 Plan of Treatment Reminders Order Date Submit Date Provider Last Modified By Organization Details Last Modified Time Details Appointments FOLLOW UP 15 2025 09:30A M DESHAWN RUSTY Not available Not available Not available Lab vitamin B12, serum 2024 025 JIMMY Not available 10/12/2024 16:24:28 methylmal curry, QN, serum or plasma 2024 025 JIMMY Not available 04/17/2025 05:01:17 vitamin B1 (thiamine ), blood 2024 025 JIMMY Not available 10/15/2024 16:15:37 immunofix ation, serum 2024 025 JIMMY Not available 10/14/2024 00:08:22 TSH, ultra-sen sitive, serum 2024 025 JIMMY Not available 10/13/2024 16:02:43 NMDA receptor Ab, serum 2024 025 JIMMY Not available 04/17/2025 05:01:16 Referral neuropsyc hologist referral 2024 025 JIMMY Not available 05/08/2025 05:01:18 Procedures None recorded. Surgeries None recorded. Imaging MRI, brain + brain stem, w/wo contrast 2024 [address] [facility], [address] [place], [address], 11/02/2024 13:52:09 Medication Orders None recorded. Patient TargetsNo targets recorded. Patient InstructionsNo instructions recorded. Reason for Referral Neuropsychologist Referral f or Impaired cognition Referring Physician: Jenn Rankin, Neurology, Encounter Date: 10/07/2024 Results Created Date Observation Date Name Description Value Unit Range Abnormal Flag Note LastModifiedBy Organization Detail LastModifiedTime 09/11/1909/11/2024 CBC panel - Blood by Autom ated count leukocytes [#/volume] in blood by automated count text: text: text: low: 4K/ulh igh: 11K/uL WBC 6.3 4.0 - 11.0 K/uL 09/11 6:02 PM EDT [facility] Not Available Not Available 01/26/2025 10:39:24 09/11/1909/11/2024 CBC panel - Blood by Autom ated count erythrocytes [#/volume] in blood by automated count 4.85 text: text: text: text: 3.80 - 5.20 M/uL RBC 4.85 3.80 - 5.20 M/uL 09/11 6:02 PM EDT [facility] Not Available Not Available 01/26/2025 10:39:24 09/11/1909/11/2024 CBC panel - Blood by Autom ated count hemoglobin [mass/volume ] in blood text: text: text: low: 11.7g/ dlhigh : 16.1g/ dL HGB 13.5 11.7 - 16.1 g/dL 09/11 6:02 PM EDT [facility] Not Available Not Available 01/26/2025 10:39:24 09/11/1909/11/2024 CBC panel - Blood by Autom ated count hematocrit [volume fraction] of blood by automated count text: text: text: low: 35.1%h igh: 48.3% HCT 43.5 35.1 - 48.3 % 09/11 6:02 PM EDT [facility] Not Available Not Available 01/26/2025 10:39:24 09/11/1909/11/2024 CBC panel - Blood by Autom ated count MCV [entitic mean volume] in red blood cells by automated count text: text: text: low: 80flhi gh: 99fL MCV 90 80 - 99 fL 09/11 6:02 PM EDT [facility] Not Available Not Available 01/26/2025 10:39:24 09/11/1909/11/2024 CBC panel - Blood by Autom ated count MCH [entitic mass] by automated count text: text: text: low: 26pghi gh: 34pg MCH 28 26 - 34 pg 09/11 6:02 PM EDT [facility] Not Available Not Available 01/26/2025 10:39:24 09/11/19 25 09/11/2024 CBC panel - Blood by Autom ated count MCHC [entitic mass/volume] in red blood cells by automated count text: text: text: low: 31g/dl high: 36g/dL MCHC 31 31 - 36 g/dL 09/11 6:02 PM EDT [facility] Not Available Not Available 01/26/2025 10:39:24 09/11/19 25 09/11/2024 CBC panel - Blood by Autom ated count erythrocyte [distwidth] in red blood cells by automated count text: text: text: low: 10%hig h: 15.5% RDW 14.5 10.0 - 15.5 % 09/11 6:02 PM EDT [facility] Not Available Not Available 01/26/2025 10:39:24 09/11/19 25 09/11/2024 CBC panel - Blood by Autom ated count platelets [#/volume] in blood by automated count text: text: text: low: 140K/u lhigh: 440K/u L Plate let 234 140 - 440 K/uL 09/11 6:02 PM EDT [facility] Not Available Not Available 01/26/2025 10:39:24 09/11/19 25 09/11/2024 CBC panel - Blood by Autom ated count platelet [entitic mean volume] in blood by automated count text: text: text: low: 9flhig h: 13fL MPV 9.8 9.0 - 13.0 fL 09/11 6:02 PM EDT [facility] Not Available Not Available 01/26/2025 10:39:24 09/11/19 25 09/11/2024 CBC panel - Blood by Autom ated count interpretati on and review of laboratory results Normal Not Available Not Available 01/08 10:39:24 09/11/1909/11/2024 Basic metab olic 2008 panel with [...] [facility] Not Available Not Available 01/26/2025 10:39:24 09/11/1909/11/2024 Basic metab olic 2008 panel with [...] [facility] Not Available Not Available 01/26/2025 10:39:24 09/11/1909/11/2024 Basic metab olic 2008 panel with [...] [facility] Not Available Not Available 01/26/2025 10:39:24 09/11/1909/11/2024 Basic metab olic 2008 panel with ioniz ed calci um - Serum or Plasm a glucose [mass/volume ] in serum or plasma text: text: text: low: 70mg/d lhigh: 99mg/d L Gluco se 86 70 - 99 mg/dL ELECS YS ANTI- SARS- COV-2 _[facility]UA 09/12 7:39 AM EDT [facility] Not Available Not Available 01/26/2025 10:39:24 09/11/1909/11/2024 Basic metab olic 2008 panel with ioniz ed calci um - Serum or Plasm a calcium [mass/volume ] in serum or plasma text: text: text: low: 8.4mg/ dlhigh : 10.5mg /dL Calci um 9.4 8.4 - 10.5 mg/dL ELECS YS ANTI- SARS- COV-2 _[facility]ST[facility] S_EUA 09/12 7:39 AM EDT [facility] Not Available Not Available 01/26/2025 10:39:24 09/11/1909/11/2024 Basic metab olic 2008 panel with [...] [facility] Not Available Not Available 01/26/2025 10:39:24 09/11/1909/11/2024 Basic metab olic 2008 panel with ioniz ed calci um - Serum or Plasm a creatinine [mass/volume ] in serum or plasma text: text: text: low: 0.8mg/ dlhigh : 1.4mg/ dL Creat inine 1.0 0.8 - 1.4 mg/dL ELECS YS ANTI- SARS- COV-2 _[facility]ST[facility] S_EUA 09/12 7:39 AM EDT [facility] Not Available Not Available 01/26/2025 10:39:24 09/11/1909/11/2024 Basic metab olic 2008 panel with ioniz ed calci um - Serum or Plasm a bicarbonate [moles/volum e] in serum or plasma text: text: text: low: 20mmol /lhigh : 32mmol /L CO2 24 20 - 32 mmol/ L ELECS YS ANTI- SARS- COV-2 _[facility] S_EUA 09/12 7:39 AM EDT [facility] Not Available Not Available 01/26/2025 10:39:24 09/11/1909/11/2024 Basic metab olic 2008 panel with [...] [facility] Not Available Not Available 01/26/2025 10:39:24 09/11/1909/11/2024 Basic metab olic 2008 panel with [...] [facility] Not Available Not Available 01/26/2025 10:39:24 09/11/1909/11/2024 Basic metab olic 2008 panel with ioniz ed calci um - Serum or Plasm a interpretati on and review of laboratory results Abnorm al Not Available Not Available 10:39:24 09/11/1909/11/2024 CBC panel - Blood by Autom ated count leukocytes [#/volume] in blood by automated count text: text: text: text: low: 4K/ulh igh: 11K/uL WBC 6.3 4.0 - 11.0 K/uL 09/11 6:02 PM EDT [facility] Not Available Not Available 02/04/2025 14:44:25 09/11/19 25 09/11/2024 CBC panel - Blood by Autom ated count erythrocytes [#/volume] in blood by automated count 4.85 text: text: text: text: text: 3.80 - 5.20 M/uL RBC 4.85 3.80 - 5.20 M/uL 09/11 6:02 PM EDT [facility] Not Available Not Available 02/04/2025 14:44:25 09/11/1909/11/2024 CBC panel - Blood by Autom ated count hemoglobin [mass/volume ] in blood text: text: text: text: low: 11.7g/ dlhigh : 16.1g/ dL HGB 13.5 11.7 - 16.1 g/dL 09/11 6:02 PM EDT [facility] Not Available Not Available 02/04/2025 14:44:25 09/11/1909/11/2024 CBC panel - Blood by Autom ated count hematocrit [volume fraction] of blood by automated count text: text: text: text: low: 35.1%h igh: 48.3% HCT 43.5 35.1 - 48.3 % 09/11 6:02 PM EDT [facility] Not Available Not Available 02/04/2025 14:44:25 09/11/1909/11/2024 CBC panel - Blood by Autom ated count MCV [entitic mean volume] in red blood cells by automated count text: text: text: text: low: 80flhi gh: 99fL MCV 90 80 - 99 fL 09/11 6:02 PM EDT [facility] Not Available Not Available 02/04/2025 14:44:25 09/11/19 25 09/11/2024 CBC panel - Blood by Autom ated count MCH [entitic mass] by automated count text: text: text: text: low: 26pghi gh: 34pg MCH 28 26 - 34 pg 09/11 6:02 PM EDT [facility] Not Available Not Available 02/04/2025 14:44:25 09/11/19 25 09/11/2024 CBC panel - Blood by Autom ated count MCHC [entitic mass/volume] in red blood cells by automated count text: text: text: text: low: 31g/dl high: 36g/dL MCHC 31 31 - 36 g/dL 09/11 6:02 PM EDT [facility] Not Available Not Available 02/04/2025 14:44:25 09/11/1909/11/2024 CBC panel - Blood by Autom ated count erythrocyte [distwidth] in blood by automated count text: text: text: text: low: 10%hig h: 15.5% RDW 14.5 10.0 - 15.5 % 09/11 6:02 PM EDT [facility] Not Available Not Available 02/04/2025 14:44:25 09/11/1909/11/2024 CBC panel - Blood by Autom ated count platelets [#/volume] in blood by automated count text: text: text: text: low: 140K/u lhigh: 440K/u L Plate let 234 140 - 440 K/uL 09/11 6:02 PM EDT [facility] Not Available Not Available 02/04/2025 14:44:25 09/11/19 25 09/11/2024 CBC panel - Blood by Autom ated count platelet [entitic mean volume] in blood by automated count text: text: text: text: low: 9flhig h: 13fL MPV 9.8 9.0 - 13.0 fL 09/11 6:02 PM EDT [facility] Not Available Not Available 02/04/2025 14:44:25 09/11/19 25 09/11/2024 CBC panel - Blood by Autom ated count interpretati on and review of laboratory results Normal Not Available Not Available 01/08 14:44:25 09/11/19 25 09/11/2024 Basic metab olic 2008 [...] [facility] Not Available Not Available 02/04/2025 14:44:24 09/11/1909/11/2024 Basic metab olic 2007 panel with [...] [facility] Not Available Not Available 02/04/2025 14:44:24 09/11/1909/11/2024 Basic metab olic 2007 panel with [...] [facility] Not Available Not Available 02/04/2025 14:44:24 09/11/1909/11/2024 Basic metab olic 2007 panel with ioniz ed calci um - Serum or Plasm a glucose [mass/volume ] in serum or plasma text: text: text: text: low: 70mg/d lhigh: 99mg/d L Gluco se 86 70 - 99 mg/dL ELECS YS ANTI- SARS- COV-2 _[facility] S_EUA 09/12 7:39 AM EDT [facility] Not Available Not Available 02/04/2025 14:44:24 09/11/1909/11/2024 Basic metab olic 2008 panel with ioniz ed calci um - Serum or Plasm a calcium [mass/volume ] in serum or plasma text: text: text: text: low: 8.4mg/ dlhigh : 10.5mg /dL Calci um 9.4 8.4 - 10.5 mg/dL ELECS YS ANTI- SARS- COV-2 _[facility] S_EUA 09/12 7:39 AM EDT [facility] Not Available Not Available 02/04/2025 14:44:24 09/11/19 25 09/11/2024 Basic metab olic 2008 [...] [facility] Not Available Not Available 02/04/2025 14:44:24 09/11/19 25 09/11/2024 Basic metab olic 2008 [...] [facility] Not Available Not Available 02/04/2025 14:44:24 09/11/19 25 09/11/2024 Basic metab olic 2008 [...] [facility] Not Available Not Available 02/04/2025 14:44:24 09/11/19 25 09/11/2024 Basic metab olic 2008 [...] [facility] Not Available Not Available 02/04/2025 14:44:24 09/11/1909/11/2024 Basic metab olic 2008 panel with [...] [facility] Not Available Not Available 02/04/2025 14:44:24 09/11/1909/11/2024 Basic metab olic 2008 panel with ioniz ed calci um - Serum or Plasm a interpretati on and review of laboratory results Abnorm al Not Available Not Available 14:44:24 09/11/1909/10/2024 CBC panel - Blood by Autom ated count leukocytes [#/volume] in blood by automated count text: text: text: text: text: low: 4K/ulh igh: 11K/uL WBC 6.3 4.0 - 11.0 K/uL 09/11 6:02 PM EDT [facility] Not Available Not Available 02/04/2025 14:44:25 09/11/1909/10/2024 CBC panel - Blood by Autom ated count erythrocytes [#/volume] in blood by automated count 4.85 text: text: text: text: text: text: 3.80 - 5.20 M/uL RBC 4.85 3.80 - 5.20 M/uL 09/11 6:02 PM EDT [facility] Not Available Not Available 02/04/2025 14:44:25 09/11/19 25 09/10/2024 CBC panel - Blood by Autom ated count hemoglobin [mass/volume ] in blood text: text: text: text: text: low: 11.7g/ dlhigh : 16.1g/ dL HGB 13.5 11.7 - 16.1 g/dL 09/11 6:02 PM EDT [facility] Not Available Not Available 02/04/2025 14:44:25 09/11/1909/10/2024 CBC panel - Blood by Autom ated count hematocrit [volume fraction] of blood by automated count text: text: text: text: text: low: 35.1%h igh: 48.3% HCT 43.5 35.1 - 48.3 % 09/11 6:02 PM EDT [facility] Not Available Not Available 02/04/2025 14:44:25 09/11/19 25 09/10/2024 CBC panel - Blood by Autom ated count MCV [entitic mean volume] in red blood cells by automated count text: text: text: text: text: low: 80flhi gh: 99fL MCV 90 80 - 99 fL 09/11 6:02 PM EDT [facility] Not Available Not Available 02/04/2025 14:44:25 09/11/19 25 09/10/2024 CBC panel - Blood by Autom ated count MCH [entitic mass] by automated count text: text: text: text: text: low: 26pghi gh: 34pg MCH 28 26 - 34 pg 09/11 6:02 PM EDT [facility] Not Available Not Available 02/04/2025 14:44:25 09/11/1909/10/2024 CBC panel - Blood by Autom ated count MCHC [entitic mass/volume] in red blood cells by automated count text: text: text: text: text: low: 31g/dl high: 36g/dL MCHC 31 31 - 36 g/dL 09/11 6:02 PM EDT [facility] Not Available Not Available 02/04/2025 14:44:25 09/11/19 25 09/10/2024 CBC panel - Blood by Autom ated count erythrocyte [distwidth] in blood by automated count text: text: text: text: text: low: 10%hig h: 15.5% RDW 14.5 10.0 - 15.5 % 09/11 6:02 PM EDT [facility] Not Available Not Available 02/04/2025 14:44:25 09/11/1909/10/2024 CBC panel - Blood by Autom ated count platelets [#/volume] in blood by automated count text: text: text: text: text: low: 140K/u lhigh: 440K/u L Plate let 234 140 - 440 K/uL 09/11 6:02 PM EDT [facility] Not Available Not Available 02/04/2025 14:44:25 09/11/19 25 09/10/2024 CBC panel - Blood by Autom ated count platelet [entitic mean volume] in blood by automated count text: text: text: text: text: low: 9flhig h: 13fL MPV 9.8 9.0 - 13.0 fL 09/11 6:02 PM EDT [facility] Not Available Not Available 02/04/2025 14:44:25 09/11/1909/10/2024 CBC panel - Blood by Autom ated count interpretati on and review of laboratory results Normal Not Available Not Available 01/08 14:44:25 09/11/1909/11/2024 Basic metab olic 2008 panel with [...] [facility] Not Available Not Available 02/04/2025 14:44:25 09/11/1909/11/2024 Basic metab olic 2008 panel with [...] [facility] Not Available Not Available 02/04/2025 14:44:25 09/11/1909/11/2024 Basic metab olic 2008 panel with [...] [facility] Not Available Not Available 02/04/2025 14:44:25 09/11/1909/11/2024 Basic metab olic 2008 panel with ioniz ed calci um - Serum or Plasm a glucose [mass/volume ] in serum or plasma text: text: text: text: text: low: 70mg/d lhigh: 99mg/d L Gluco se 86 70 - 99 mg/dL ELECS YS ANTI- SARS- COV-2 _[facility]UA 09/12 7:39 AM EDT [facility] Not Available Not Available 02/04/2025 14:44:25 09/11/1909/11/2024 Basic metab olic 2008 panel with [...] [facility] Not Available Not Available 02/04/2025 14:44:25 09/11/1909/11/2024 Basic metab olic 2007 panel with [...] [facility] Not Available Not Available 02/04/2025 14:44:25 09/11/1909/11/2024 Basic metab olic 2007 panel with [...] [facility] Not Available Not Available 02/04/2025 14:44:25 09/11/1909/11/2024 Basic metab olic 2008 panel with [...] [facility] Not Available Not Available 02/04/2025 14:44:25 09/11/1909/11/2024 Basic metab olic 2008 panel with [...] [facility] Not Available Not Available 02/04/2025 14:44:25 09/11/1909/11/2024 Basic metab olic 2008 panel with [...] [facility] Not Available Not Available 02/04/2025 14:44:25 09/11/1909/11/2024 Basic metab olic 2008 panel with ioniz ed calci um - Serum or Plasm a interpretati on and review of laboratory results Abnorm al Not Available Not Available 14:44:25 09/11/1909/10/2024 CBC WBC, auto, blood text: text: text: text: text: text: low: 4K/ulh igh: 11K/uL WBC 6.3 4.0 - 11.0 K/uL 09/11 6:02 PM EDT [facility] Not Available Not Available 02/22/2025 15:31:16 09/11/19 25 09/10/2024 CBC RBC count, blood 4.85 text: text: text: text: text: text: text: 3.80 - 5.20 M/uL RBC 4.85 3.80 - 5.20 M/uL 09/11 6:02 PM EDT [facility] Not Available Not Available 02/22/2025 15:31:16 09/11/19 25 09/10/2024 CBC hemoglobin (Hb), blood text: text: text: text: text: text: low: 11.7g/ dlhigh : 16.1g/ dL HGB 13.5 11.7 - 16.1 g/dL 09/11 6:02 PM EDT [facility] Not Available Not Available 02/22/2025 15:31:16 09/11/19 25 09/10/2024 CBC hematocrit, automated count, blood text: text: text: text: text: text: low: 35.1%h igh: 48.3% HCT 43.5 35.1 - 48.3 % 09/11 6:02 PM EDT [facility] Not Available Not Available 02/22/2025 15:31:16 09/11/1909/10/2024 CBC MCV, blood text: text: text: text: text: text: low: 80flhi gh: 99fL MCV 90 80 - 99 fL 09/11 6:02 PM EDT [facility] Not Available Not Available 02/22/2025 15:31:16 09/11/19 25 09/10/2024 CBC MCH, qn, automated (obs) text: text: text: text: text: text: low: 26pghi gh: 34pg MCH 28 26 - 34 pg 09/11 6:02 PM EDT [facility] Not Available Not Available 02/22/2025 15:31:16 09/11/19 25 09/10/2024 CBC MCHC, qn, automated (obs) text: text: text: text: text: text: low: 31g/dl high: 36g/dL MCHC 31 31 - 36 g/dL 09/11 6:02 PM EDT [facility] Not Available Not Available 02/22/2025 15:31:16 09/11/19 25 09/10/2024 CBC erythrocyte distribution width, ratio, automated (obs) text: text: text: text: text: text: low: 10%hig h: 15.5% RDW 14.5 10.0 - 15.5 % 09/11 6:02 PM EDT [facility] Not Available Not Available 02/22/2025 15:31:16 04/04/09/10/2024 CBC platelets, auto, blood text: text: text: text: text: text: low: 140K/u lhigh: 440K/u L Plate let 234 140 - 440 K/uL 09/11 6:02 PM EDT [facility] Not Available Not Available 02/22/2025 15:31:16 09/11/1909/10/2024 CBC platelet mean volume, qn, automated, blood (obs) text: text: text: text: text: text: low: 9flhig h: 13fL MPV 9.8 9.0 - 13.0 fL 09/11 6:02 PM EDT [facility] Not Available Not Available 02/22/2025 15:31:16 09/11/1909/10/2024 CBC interpretati on and review of laboratory results Normal Not Available Not Available 02/07 15:31:16 09/11/1909/11/2024 BMP + ioniz ed calci um, serum or plasm a potassium, serum or plasma text: text: text: text: text: text: low: 3.5mmo l/lhig h: 5.5mmo l/L Potas sium 4.2 3.5 - 5.5 mmol/ L ELECS YS ANTI- SARS- COV-2 _[facility]_EUA 09/12 7:39 AM EDT [facility] Not Available Not Available 02/22/2025 15:31:16 09/11/1909/11/2024 BMP + ioniz ed calci um, serum or plasm a sodium, serum or plasma text: text: text: text: text: text: low: 133mmo l/lhig h: 145mmo l/L Sodiu m 143 133 - 145 mmol/ L ELECS YS ANTI- SARS- COV-2 _[facility] S_EUA 09/12 7:39 AM EDT [facility] Not Available Not Available 02/22/2025 15:31:16 09/11/1909/11/2024 BMP + ioniz ed calci um, serum or plasm a chloride, serum or plasma text: text: text: text: text: text: low: 98mmol /lhigh : 110mmo l/L Chlor javier 105 98 - 110 mmol/ L ELECS YS ANTI- SARS- COV-2 _[facility] S_EUA 09/12 7:39 AM EDT [facility] Not Available Not Available 02/22/2025 15:31:16 09/11/1909/11/2024 BMP + ioniz ed calci um, serum or plasm a glucose, qn [mass/volume ], serum or plasma text: text: text: text: text: text: low: 70mg/d lhigh: 99mg/d L Gluco se 86 70 - 99 mg/dL ELECS YS ANTI- SARS- COV-2 _[facility] S_EUA 09/12 7:39 AM EDT [facility] Not Available Not Available 02/22/2025 15:31:16 09/11/1909/11/2024 BMP + ioniz ed calci um, serum or plasm a calcium, serum or plasma text: text: text: text: text: text: low: 8.4mg/ dlhigh : 10.5mg /dL Calci um 9.4 8.4 - 10.5 mg/dL ELECS YS ANTI- SARS- COV-2 _[facility] S_EUA 09/12 7:39 AM EDT [facility] Not Available Not Available 02/22/2025 15:31:16 09/11/1909/11/2024 BMP + ioniz ed calci um, serum or plasm a BUN (blood urea nitrogen), serum or plasma text: text: text: text: text: text: low: 6mg/dl high: 22mg/d L high BUN 27 (H) 6 - 22 mg/dL ELECS YS ANTI- SARS- COV-2 _[facility] S_EUA 09/12 7:39 AM EDT [facility] Not Available Not Available 02/22/2025 15:31:16 09/11/1909/11/2024 BMP + ioniz ed calci um, serum or plasm a creatinine, serum or plasma text: text: text: text: text: text: low: 0.8mg/ dlhigh : 1.4mg/ dL Creat inine 1.0 0.8 - 1.4 mg/dL ELECS YS ANTI- SARS- COV-2 _[facility] S_EUA 09/12 7:39 AM EDT [facility] Not Available Not Available 02/22/2025 15:31:16 09/11/1909/11/2024 BMP + ioniz ed calci um, serum or plasm a bicarbonate, quant, serum text: text: text: text: text: text: low: 20mmol /lhigh : 32mmol /L CO2 24 20 - 32 mmol/ L ELECS YS ANTI- SARS- COV-2 _[facility]ST[facility] S_EUA 09/12 7:39 AM EDT [facility] Not Available Not Available 02/22/2025 15:31:16 09/11/1909/11/2024 BMP + ioniz ed calci um, [...] [facility] Not Available Not Available 02/22/2025 15:31:16 09/11/1909/11/2024 BMP + ioniz ed calci um, serum or plasm a anion gap 4, serum or plasma (obs) text: text: text: text: text: text: low: 3mmol/ lhigh: 15mmol /L Anion Gap 14.0 3.0 - 15.0 mmol/ L ELECS YS ANTI- SARS- COV-2 _ROCH E DIAGN OSTIC S_EUA 09/12 7:39 AM EDT [facility] Not Available Not Available 02/22/2025 15:31:16 09/11/1909/11/2024 BMP + ioniz ed calci um, serum or plasm a interpretati on and review of laboratory results Abnorm al Not Available Not Available 15:31:16 09/11/1909/10/2024 CBC WBC, auto, blood text: text: text: text: text: text: text: low: 4K/ulh igh: 11K/uL WBC 6.3 4.0 - 11.0 K/uL 09/11 6:02 PM EDT [facility] Not Available Not Available 02/22/2025 15:31:16 09/11/1909/10/2024 CBC RBC count, blood 4.85 text: text: text: text: text: text: text: text: 3.80 - 5.20 M/uL RBC 4.85 3.80 - 5.20 M/uL 09/11 6:02 PM EDT [facility] [facility] Not Available Not Available 02/22/2025 15:31:16 09/11/1909/10/2024 CBC hemoglobin (Hb), blood text: text: text: text: text: text: text: low: 11.7g/ dlhigh : 16.1g/ dL HGB 13.5 11.7 - 16.1 g/dL 09/11 6:02 PM EDT [facility] Not Available Not Available 02/22/2025 15:31:16 09/11/1909/10/2024 CBC hematocrit, automated count, blood text: text: text: text: text: text: text: low: 35.1%h igh: 48.3% HCT 43.5 35.1 - 48.3 % 09/11 6:02 PM EDT [facility] Not Available Not Available 02/22/2025 15:31:16 09/11/1909/10/2024 CBC MCV, blood text: text: text: text: text: text: text: low: 80flhi gh: 99fL MCV 90 80 - 99 fL 09/11 6:02 PM EDT [facility] Not Available Not Available 02/22/2025 15:31:16 09/11/19 25 09/10/2024 CBC MCH, qn, automated (obs) text: text: text: text: text: text: text: low: 26pghi gh: 34pg MCH 28 26 - 34 pg 09/11 6:02 PM EDT [facility] Not Available Not Available 02/22/2025 15:31:16 09/11/19 25 09/10/2024 CBC MCHC, qn, automated (obs) text: text: text: text: text: text: text: low: 31g/dl high: 36g/dL MCHC 31 31 - 36 g/dL 09/11 6:02 PM EDT [facility] Not Available Not Available 02/22/2025 15:31:16 09/11/19 25 09/10/2024 CBC erythrocyte distribution width, ratio, automated (obs) text: text: text: text: text: text: text: low: 10%hig h: 15.5% RDW 14.5 10.0 - 15.5 % 09/11 6:02 PM EDT [facility] Not Available Not Available 02/22/2025 15:31:16 09/11/19 25 09/10/2024 CBC platelets, auto, blood text: text: text: text: text: text: text: low: 140K/u lhigh: 440K/u L Plate let 234 140 - 440 K/uL 09/11 6:02 PM EDT [facility] Not Available Not Available 02/22/2025 15:31:16 09/11/19 25 09/10/2024 CBC platelet mean volume, qn, automated, blood (obs) text: text: text: text: text: text: text: low: 9flhig h: 13fL MPV 9.8 9.0 - 13.0 fL 09/11 6:02 PM EDT [facility] Not Available Not Available 02/22/2025 15:31:16 09/11/19 25 09/10/2024 CBC interpretati on and review of laboratory results Normal Not Available Not Available 02/07 15:31:16 09/11/1909/11/2024 BMP + ioniz ed calci um, serum or plasm a potassium, serum or plasma text: text: text: text: text: text: text: low: 3.5mmo l/lhig h: 5.5mmo l/L Potas sium 4.2 3.5 - 5.5 mmol/ L ELECS YS ANTI- SARS- COV-2 _[facility] 09/12 7:39 AM EDT [facility] Not Available Not Available 02/22/2025 15:31:16 09/11/1909/11/2024 BMP + ioniz ed calci um, serum or plasm a sodium, serum or plasma text: text: text: text: text: text: text: low: 133mmo l/lhig h: 145mmo l/L Sodiu m 143 133 - 145 mmol/ L ELECS YS ANTI- SARS- COV-2 _RO[facility] E DIAGN OSTIC S_EUA 09/12 7:39 AM EDT [facility] Not Available Not Available 02/22/2025 15:31:16 09/11/1909/11/2024 BMP + ioniz ed calci um, serum or plasm a chloride, serum or plasma text: text: text: text: text: text: text: low: 98mmol /lhigh : 110mmo l/L Chlor javier 105 98 - 110 mmol/ L ELECS YS ANTI- SARS- COV-2 _[facility] E DIAGN OSTIC S_EUA 09/12 7:39 AM EDT [facility] Not Available Not Available 02/22/2025 15:31:16 09/11/1909/11/2024 BMP + ioniz ed calci um, serum or plasm a glucose, qn [mass/volume ], serum or plasma text: text: text: text: text: text: text: low: 70mg/d lhigh: 99mg/d L Gluco se 86 70 - 99 mg/dL ELECS YS ANTI- SARS- COV-2 _[facility] DI[facility] OST[facility] S_EUA 04/06 /2025 7:39 AM EDT [facility] Not Available Not Available 02/22/2025 15:31:16 09/11/1909/11/2024 BMP + ioniz ed calci um, serum or plasm a calcium, serum or plasma text: text: text: text: text: text: text: low: 8.4mg/ dlhigh : 10.5mg /dL Calci um 9.4 8.4 - 10.5 mg/dL ELECS YS ANTI- SARS- COV-2 _[facility] E DIAGN OSTIC S_EUA 09/12 7:39 AM EDT [facility] Not Available Not Available 02/22/2025 15:31:16 09/11/1909/11/2024 BMP + ioniz ed calci um, serum or plasm a BUN (blood urea nitrogen), serum or plasma text: text: text: text: text: text: text: low: 6mg/dl high: 22mg/d L high BUN 27 (H) 6 - 22 mg/dL ELECS YS ANTI- SARS- COV-2 _[facility] DIAGN OSTIC S_EUA 09/12 7:39 AM EDT [facility] Not Available Not Available 02/22/2025 15:31:16 09/11/1909/11/2024 BMP + ioniz ed calci um, serum or plasm a creatinine, serum or plasma text: text: text: text: text: text: text: low: 0.8mg/ dlhigh : 1.4mg/ dL Creat inine 1.0 0.8 - 1.4 mg/dL ELECS YS ANTI- SARS- COV-2 _[facility] E DIAGN OSTIC S_EUA 09/12 7:39 AM EDT [facility] Not Available Not Available 02/22/2025 15:31:16 09/11/1909/11/2024 BMP + ioniz ed calci um, serum or plasm a bicarbonate, quant, serum text: text: text: text: text: text: text: low: 20mmol /lhigh : 32mmol /L CO2 24 20 - 32 mmol/ L ELECS YS ANTI- SARS- COV-2 _[facility] E DIAGN OSTIC S_EUA 09/12 7:39 AM EDT [facility] Not Available Not Available 02/22/2025 15:31:16 09/11/1909/11/2024 BMP + ioniz ed calci um, [...] [facility] Not Available Not Available 02/22/2025 15:31:16 09/11/1909/11/2024 BMP + ioniz ed calci um, serum or plasm a anion gap 4, serum or plasma (obs) text: text: text: text: text: text: text: low: 3mmol/ lhigh: 15mmol /L Anion Gap 14.0 3.0 - 15.0 mmol/ L ELECS YS ANTI- SARS- COV-2 _[facility] E DIAGN OSTIC S_EUA 09/12 7:39 AM EDT [facility] Not Available Not Available 02/22/2025 15:31:16 09/11/1909/11/2024 BMP + ioniz ed calci um, serum or plasm a interpretati on and review of laboratory results Abnorm al Not Available Not Available 15:31:16 09/12/1909/11/2024 CBC panel - Blood by Autom ated count leukocytes [#/volume] in blood by automated count 6.3 K/uL low: 4K/uLh igh: 11K/uL WBC 6.3 4.0 - 11.0 K/uL 09/11 6:02 PM EDT [facility] Not Available Not Available 09/29/2024 07:54:19 09/12/1909/11/2024 CBC panel - Blood by Autom ated count erythrocytes [#/volume] in blood by automated count 4.85 text: 3.80 - 5.20 M/uL RBC 4.85 3.80 - 5.20 M/uL 09/11 6:02 PM EDT [facility] Not Available Not Available 09/29/2024 07:54:19 09/12/19 25 09/11/2024 CBC panel - Blood by Autom ated count hemoglobin [mass/volume ] in blood 13.5 g/dL low: 11.7g/ dLhigh : 16.1g/ dL HGB 13.5 11.7 - 16.1 g/dL 09/11 6:02 PM EDT [facility] Not Available Not Available 09/29/2024 07:54:19 09/12/1909/11/2024 CBC panel - Blood by Autom ated count hematocrit [volume fraction] of blood by automated count 43.5 % low: 35.1%h igh: 48.3% HCT 43.5 35.1 - 48.3 % 09/11 6:02 PM EDT [facility] Not Available Not Available 09/29/2024 07:54:19 09/12/19 25 09/11/2024 CBC panel - Blood by Autom ated count MCV [entitic mean volume] in red blood cells by automated count 90 fL low: 80fLhi gh: 99fL MCV 90 80 - 99 fL 09/11 6:02 PM EDT [facility] Not Available Not Available 09/29/2024 07:54:19 09/12/19 25 09/11/2024 CBC panel - Blood by Autom ated count MCH [entitic mass] by automated count 28 pg low: 26pghi gh: 34pg MCH 28 26 - 34 pg 09/11 6:02 PM EDT [facility] Not Available Not Available 09/29/2024 07:54:19 09/12/19 25 09/11/2024 CBC panel - Blood by Autom ated count MCHC [entitic mass/volume] in red blood cells by automated count 31 g/dL low: 31g/dL high: 36g/dL MCHC 31 31 - 36 g/dL 09/11 6:02 PM EDT [facility] Not Available Not Available 09/29/2024 07:54:19 09/12/19 25 09/11/2024 CBC panel - Blood by Autom ated count erythrocyte [distwidth] in red blood cells by automated count 14.5 % low: 10%hig h: 15.5% RDW 14.5 10.0 - 15.5 % 09/11 6:02 PM EDT [facility] Not Available Not Available 09/29/2024 07:54:19 09/12/19 25 09/11/2024 CBC panel - Blood by Autom ated count platelets [#/volume] in blood by automated count 234 K/uL low: 140K/u Lhigh: 440K/u L Plate let 234 140 - 440 K/uL 09/11 6:02 PM EDT [facility] Not Available Not Available 09/29/2024 07:54:19 09/12/19 25 09/11/2024 CBC panel - Blood by Autom ated count platelet [entitic mean volume] in blood by automated count 9.8 fL low: 9fLhig h: 13fL MPV 9.8 9.0 - 13.0 fL 09/11 6:02 PM EDT [facility] Not Available Not Available 09/29/2024 07:54:19 09/12/19 25 09/11/2024 CBC panel - Blood by Autom ated count interpretati on and review of laboratory results Normal Not Available Not Available 09/08 07:54:19 09/12/19 25 09/12/2024 Basic metab olic 2008 [...] [facility] Not Available Not Available 09/29/2024 07:54:19 09/12/1909/12/2024 Basic metab olic 2007 panel with ioniz ed calci um - Serum or Plasm a sodium [moles/volum e] in serum or plasma 143 mmol/ L low: 133mmo l/Lhig h: 145mmo l/L Sodiu m 143 133 - 145 mmol/ L ELECS YS ANTI- SARS- COV-2 _[facility] E DIAGN OSTIC S_EUA 09/12 7:39 AM EDT [facility] Not Available Not Available 09/29/2024 07:54:19 09/12/1909/12/2024 Basic metab olic 2007 panel with ioniz ed calci um - Serum or Plasm a chloride [moles/volum e] in serum or plasma 105 mmol/ L low: 98mmol /Lhigh : 110mmo l/L Chlor javier 105 98 - 110 mmol/ L ELECS YS ANTI- SARS- COV-2 _RO[facility] E DIAGN OSTIC S_EUA 09/12 7:39 AM EDT [facility] Not Available Not Available 09/29/2024 07:54:19 09/12/1909/12/2024 Basic metab olic 2007 panel with ioniz ed calci um - Serum or Plasm a glucose [mass/volume ] in serum or plasma 86 mg/dL low: 70mg/d Lhigh: 99mg/d L Gluco se 86 70 - 99 mg/dL ELECS YS ANTI- SARS- COV-2 _[facility] E DIAGN OSTIC S_EUA 09/12 7:39 AM EDT [facility] Not Available Not Available 09/29/2024 07:54:19 09/12/1909/12/2024 Basic metab olic 2007 panel with ioniz ed calci um - Serum or Plasm a calcium [mass/volume ] in serum or plasma 9.4 mg/dL low: 8.4mg/ dLhigh : 10.5mg /dL Calci um 9.4 8.4 - 10.5 mg/dL ELECS YS ANTI- SARS- COV-2 _[facility] E DIAGN OSTIC S_EUA 09/12 7:39 AM EDT [facility] Not Available Not Available 09/29/2024 07:54:19 09/12/1909/12/2024 Basic metab olic 2007 panel with ioniz ed calci um - Serum or Plasm a urea nitrogen [mass/volume ] in serum or plasma 27 mg/dL low: 6mg/dL high: 22mg/d L high BUN 27 (H) 6 - 22 mg/dL ELECS YS ANTI- SARS- COV-2 _[facility] DIAGN OSTIC S_EUA 09/12 7:39 AM EDT [facility] Not Available Not Available 09/29/2024 07:54:19 09/12/1909/12/2024 Basic metab olic 2007 panel with ioniz ed calci um - Serum or Plasm a creatinine [mass/volume ] in serum or plasma 1 mg/dL low: 0.8mg/ dLhigh : 1.4mg/ dL Creat inine 1.0 0.8 - 1.4 mg/dL ELECS YS ANTI- SARS- COV-2 _[facility] DIAGN OSTIC S_EUA 09/12 7:39 AM EDT [facility] Not Available Not Available 09/29/2024 07:54:19 09/12/1909/12/2024 Basic metab olic 2007 panel with ioniz ed calci um - Serum or Plasm a bicarbonate [moles/volum e] in serum or plasma 24 mmol/ L low: 20mmol /Lhigh : 32mmol /L CO2 24 20 - 32 mmol/ L ELECS YS ANTI- SARS- COV-2 _[facility] E DIAGN OSTIC S_EUA 09/12 7:39 AM EDT [facility] Not Available Not Available 09/29/2024 07:54:19 09/12/1909/12/2024 Basic metab olic 2007 panel with [...] [facility] Not Available Not Available 09/29/2024 07:54:19 09/12/1909/12/2024 Basic metab olic 2008 panel with [...] [facility] Not Available Not Available 09/29/2024 07:54:19 09/12/1909/12/2024 Basic metab olic 2008 panel with ioniz ed calci um - Serum or Plasm a interpretati on and review of laboratory results Abnorm al Not Available Not Available 07:54:19 09/12/19 25 09/11/2024 CBC panel - Blood by Autom ated count leukocytes [#/volume] in blood by automated count text: low: 4K/ulh igh: 11K/uL WBC 6.3 4.0 - 11.0 K/uL 09/11 6:02 PM EDT [facility] Not Available Not Available 12/06/2024 09:18:27 09/12/19 25 09/11/2024 CBC panel - Blood by Autom ated count erythrocytes [#/volume] in blood by automated count 4.85 text: text: 3.80 - 5.20 M/uL RBC 4.85 3.80 - 5.20 M/uL 09/11 6:02 PM EDT [facility] Not Available Not Available 12/06/2024 09:18:27 09/12/19 25 09/11/2024 CBC panel - Blood by Autom ated count hemoglobin [mass/volume ] in blood text: low: 11.7g/ dlhigh : 16.1g/ dL HGB 13.5 11.7 - 16.1 g/dL 09/11 6:02 PM EDT [facility] Not Available Not Available 12/06/2024 09:18:27 09/12/1909/11/2024 CBC panel - Blood by Autom ated count hematocrit [volume fraction] of blood by automated count text: low: 35.1%h igh: 48.3% HCT 43.5 35.1 - 48.3 % 09/11 6:02 PM EDT [facility] Not Available Not Available 12/06/2024 09:18:27 09/12/1909/11/2024 CBC panel - Blood by Autom ated count MCV [entitic mean volume] in red blood cells by automated count text: low: 80flhi gh: 99fL MCV 90 80 - 99 fL 09/11 6:02 PM EDT [facility] Not Available Not Available 12/06/2024 09:18:27 09/12/1909/11/2024 CBC panel - Blood by Autom ated count MCH [entitic mass] by automated count text: low: 26pghi gh: 34pg MCH 28 26 - 34 pg 09/11 6:02 PM EDT [facility] Not Available Not Available 12/06/2024 09:18:27 09/12/1909/11/2024 CBC panel - Blood by Autom ated count MCHC [entitic mass/volume] in red blood cells by automated count text: low: 31g/dl high: 36g/dL MCHC 31 31 - 36 g/dL 09/11 6:02 PM EDT [facility] Not Available Not Available 12/06/2024 09:18:27 09/12/1909/11/2024 CBC panel - Blood by Autom ated count erythrocyte [distwidth] in red blood cells by automated count text: low: 10%hig h: 15.5% RDW 14.5 10.0 - 15.5 % 09/11 6:02 PM EDT [facility] Not Available Not Available 12/06/2024 09:18:27 09/12/19 25 09/11/2024 CBC panel - Blood by Autom ated count platelets [#/volume] in blood by automated count text: low: 140K/u lhigh: 440K/u L Plate let 234 140 - 440 K/uL 09/11 6:02 PM EDT [facility] Not Available Not Available 12/06/2024 09:18:27 09/12/1909/11/2024 CBC panel - Blood by Autom ated count platelet [entitic mean volume] in blood by automated count text: low: 9flhig h: 13fL MPV 9.8 9.0 - 13.0 fL 09/11 6:02 PM EDT [facility] Not Available Not Available 12/06/2024 09:18:27 09/12/19 25 09/11/2024 CBC panel - Blood by Autom ated count interpretati on and review of laboratory results Normal Not Available Not Available 11/09 09:18:27 09/12/1909/12/2024 Basic metab olic 2008 panel with ioniz ed calci um - Serum or Plasm a potassium [moles/volum e] in serum or plasma text: low: 3.5mmo l/lhig h: 5.5mmo l/L Potas sium 4.2 3.5 - 5.5 mmol/ L ELECS YS ANTI- SARS- COV-2 _RO[facility] E DIAGN OSTIC S_EUA 09/12 7:39 AM EDT [facility] Not Available Not Available 12/06/2024 09:18:27 09/12/1909/12/2024 Basic metab olic 2008 panel with ioniz ed calci um - Serum or Plasm a sodium [moles/volum e] in serum or plasma text: low: 133mmo l/lhig h: 145mmo l/L Sodiu m 143 133 - 145 mmol/ L ELECS YS ANTI- SARS- COV-2 _RO[facility] E DIAGN OSTIC S_EUA 09/12 7:39 AM EDT [facility] Not Available Not Available 12/06/2024 09:18:27 09/12/19 25 09/12/2024 Basic metab olic 2008 panel with ioniz ed calci um - Serum or Plasm a chloride [moles/volum e] in serum or plasma text: low: 98mmol /lhigh : 110mmo l/L Chlor javier 105 98 - 110 mmol/ L ELECS YS ANTI- SARS- COV-2 _[facility] E DIAGN OSTIC S_EUA 09/12 7:39 AM EDT [facility] Not Available Not Available 12/06/2024 09:18:27 09/12/1909/12/2024 Basic metab olic 2007 panel with ioniz ed calci um - Serum or Plasm a glucose [mass/volume ] in serum or plasma text: low: 70mg/d lhigh: 99mg/d L Gluco se 86 70 - 99 mg/dL ELECS YS ANTI- SARS- COV-2 _RO[facility] E DIAGN OSTIC S_EUA 09/12 7:39 AM EDT [facility] Not Available Not Available 12/06/2024 09:18:27 09/12/1909/12/2024 Basic metab olic 2007 panel with ioniz ed calci um - Serum or Plasm a calcium [mass/volume ] in serum or plasma text: low: 8.4mg/ dlhigh : 10.5mg /dL Calci um 9.4 8.4 - 10.5 mg/dL ELECS YS ANTI- SARS- COV-2 _RO[facility] E DIAGN OSTIC S_EUA 09/12 7:39 AM EDT [facility] Not Available Not Available 12/06/2024 09:18:27 09/12/1909/12/2024 Basic metab olic 2007 panel with ioniz ed calci um - Serum or Plasm a urea nitrogen [mass/volume ] in serum or plasma text: low: 6mg/dl high: 22mg/d L high BUN 27 (H) 6 - 22 mg/dL ELECS YS ANTI- SARS- COV-2 _RO[facility] E DIAGN OSTIC S_EUA 09/12 7:39 AM EDT [facility] Not Available Not Available 12/06/2024 09:18:27 09/12/1909/12/2024 Basic metab olic 2008 panel with ioniz ed calci um - Serum or Plasm a creatinine [mass/volume ] in serum or plasma text: low: 0.8mg/ dlhigh : 1.4mg/ dL Creat inine 1.0 0.8 - 1.4 mg/dL ELECS YS ANTI- SARS- COV-2 _RO[facility] E DIAGN OSTIC S_EUA 09/12 7:39 AM EDT [facility] Not Available Not Available 12/06/2024 09:18:27 09/12/19 25 09/12/2024 Basic metab olic 2007 panel with ioniz ed calci um - Serum or Plasm a bicarbonate [moles/volum e] in serum or plasma text: low: 20mmol /lhigh : 32mmol /L CO2 24 20 - 32 mmol/ L ELECS YS ANTI- SARS- COV-2 _RO[facility] E DIAGN OSTIC S_EUA 09/12 7:39 AM EDT [facility] Not Available Not Available 12/06/2024 09:18:27 09/12/1909/12/2024 Basic metab olic 2007 panel with [...] [facility] Not Available Not Available 12/06/2024 09:18:27 09/12/1909/12/2024 Basic metab olic 2008 panel with ioniz ed calci um - Serum or Plasm a anion gap in serum or plasma by calculated.4 ions text: low: 3mmol/ lhigh: 15mmol /L Anion Gap 14.0 3.0 - 15.0 mmol/ L ELECS YS ANTI- SARS- COV-2 _ROCH E DIAGN OSTIC S_EUA 09/12 7:39 AM EDT [facility] Not Available Not Available 12/06/2024 09:18:27 09/12/19 25 09/12/2024 Basic metab olic 2008 panel with ioniz ed calci um - Serum or Plasm a interpretati on and review of laboratory results Abnorm al Not Available Not Available 09:18:27 09/12/1909/11/2024 CBC panel - Blood by Autom ated count leukocytes [#/volume] in blood by automated count text: text: low: 4K/ulh igh: 11K/uL WBC 6.3 4.0 - 11.0 K/uL 09/11 6:02 PM EDT [facility] Not Available Not Available 01/26/2025 10:39:24 09/12/19 25 09/11/2024 CBC panel - Blood by Autom ated count erythrocytes [#/volume] in blood by automated count 4.85 text: text: text: 3.80 - 5.20 M/uL RBC 4.85 3.80 - 5.20 M/uL 09/11 6:02 PM EDT [facility] Not Available Not Available 01/26/2025 10:39:24 09/12/19 25 09/11/2024 CBC panel - Blood by Autom ated count hemoglobin [mass/volume ] in blood text: text: low: 11.7g/ dlhigh : 16.1g/ dL HGB 13.5 11.7 - 16.1 g/dL 09/11 6:02 PM EDT [facility] Not Available Not Available 01/26/2025 10:39:24 09/12/19 25 09/11/2024 CBC panel - Blood by Autom ated count hematocrit [volume fraction] of blood by automated count text: text: low: 35.1%h igh: 48.3% HCT 43.5 35.1 - 48.3 % 09/11 6:02 PM EDT [facility] Not Available Not Available 01/26/2025 10:39:24 09/12/19 25 09/11/2024 CBC panel - Blood by Autom ated count MCV [entitic mean volume] in red blood cells by automated count text: text: low: 80flhi gh: 99fL MCV 90 80 - 99 fL 09/11 6:02 PM EDT [facility] Not Available Not Available 01/26/2025 10:39:24 09/12/19 25 09/11/2024 CBC panel - Blood by Autom ated count MCH [entitic mass] by automated count text: text: low: 26pghi gh: 34pg MCH 28 26 - 34 pg 09/11 6:02 PM EDT [facility] Not Available Not Available 01/26/2025 10:39:24 09/12/19 25 09/11/2024 CBC panel - Blood by Autom ated count MCHC [entitic mass/volume] in red blood cells by automated count text: text: low: 31g/dl high: 36g/dL MCHC 31 31 - 36 g/dL 09/11 6:02 PM EDT [facility] Not Available Not Available 01/26/2025 10:39:24 09/12/19 25 09/11/2024 CBC panel - Blood by Autom ated count erythrocyte [distwidth] in red blood cells by automated count text: text: low: 10%hig h: 15.5% RDW 14.5 10.0 - 15.5 % 09/11 6:02 PM EDT [facility] Not Available Not Available 01/26/2025 10:39:24 09/12/19 25 09/11/2024 CBC panel - Blood by Autom ated count platelets [#/volume] in blood by automated count text: text: low: 140K/u lhigh: 440K/u L Plate let 234 140 - 440 K/uL 09/11 6:02 PM EDT [facility] Not Available Not Available 01/26/2025 10:39:24 09/12/19 25 09/11/2024 CBC panel - Blood by Autom ated count platelet [entitic mean volume] in blood by automated count text: text: low: 9flhig h: 13fL MPV 9.8 9.0 - 13.0 fL 09/11 6:02 PM EDT [facility] Not Available Not Available 01/26/2025 10:39:24 09/12/19 25 09/11/2024 CBC panel - Blood by Autom ated count interpretati on and review of laboratory results Normal Not Available Not Available 01/08 10:39:24 09/12/1909/11/2024 Basic metab olic 2008 panel with ioniz ed calci um - Serum or Plasm a potassium [moles/volum e] in serum or plasma text: text: low: 3.5mmo l/lhig h: 5.5mmo l/L Potas sium 4.2 3.5 - 5.5 mmol/ L ELECS YS ANTI- SARS- COV-2 _RO[facility] E DIAGN OSTIC S_EUA 09/12 7:39 AM EDT [facility] Not Available Not Available 01/26/2025 10:39:24 09/12/1909/11/2024 Basic metab olic 2008 panel with ioniz ed calci um - Serum or Plasm a sodium [moles/volum e] in serum or plasma text: text: low: 133mmo l/lhig h: 145mmo l/L Sodiu m 143 133 - 145 mmol/ L ELECS YS ANTI- SARS- COV-2 _RO[facility] E DIAGN OSTIC S_EUA 09/12 7:39 AM EDT [facility] Not Available Not Available 01/26/2025 10:39:24 09/12/1909/11/2024 Basic metab olic 2008 panel with ioniz ed calci um - Serum or Plasm a chloride [moles/volum e] in serum or plasma text: text: low: 98mmol /lhigh : 110mmo l/L Chlor javier 105 98 - 110 mmol/ L ELECS YS ANTI- SARS- COV-2 _RO[facility] E DIAGN OSTIC S_EUA 09/12 7:39 AM EDT [facility] Not Available Not Available 01/26/2025 10:39:24 09/12/1909/11/2024 Basic metab olic 2008 panel with ioniz ed calci um - Serum or Plasm a glucose [mass/volume ] in serum or plasma text: text: low: 70mg/d lhigh: 99mg/d L Gluco se 86 70 - 99 mg/dL ELECS YS ANTI- SARS- COV-2 _RO[facility] E DIAGN OSTIC S_EUA 09/12 7:39 AM EDT [facility] Not Available Not Available 01/26/2025 10:39:24 09/12/1909/11/2024 Basic metab olic 2008 panel with ioniz ed calci um - Serum or Plasm a calcium [mass/volume ] in serum or plasma text: text: low: 8.4mg/ dlhigh : 10.5mg /dL Calci um 9.4 8.4 - 10.5 mg/dL ELECS YS ANTI- SARS- COV-2 _ROCH E DIAGN OSTIC S_EUA 09/12 7:39 AM EDT [facility] Not Available Not Available 01/26/2025 10:39:24 09/12/1909/11/2024 Basic metab olic 2007 panel with ioniz ed calci um - Serum or Plasm a urea nitrogen [mass/volume ] in serum or plasma text: text: low: 6mg/dl high: 22mg/d L high BUN 27 (H) 6 - 22 mg/dL ELECS YS ANTI- SARS- COV-2 _ROCH E DIAGN OSTIC S_EUA 09/12 7:39 AM EDT [facility]Z [facility] Not Available Not Available 01/26/2025 10:39:24 09/12/1909/11/2024 Basic metab olic 2008 panel with ioniz ed calci um - Serum or Plasm a creatinine [mass/volume ] in serum or plasma text: text: low: 0.8mg/ dlhigh : 1.4mg/ dL Creat inine 1.0 0.8 - 1.4 mg/dL ELECS YS ANTI- SARS- COV-2 _ROCH E DIAGN OSTIC S_EUA 09/12 7:39 AM EDT [facility] Not Available Not Available 01/26/2025 10:39:24 09/12/1909/11/2024 Basic metab olic 2008 panel with ioniz ed calci um - Serum or Plasm a bicarbonate [moles/volum e] in serum or plasma text: text: low: 20mmol /lhigh : 32mmol /L CO2 24 20 - 32 mmol/ L ELECS YS ANTI- SARS- COV-2 _ROCH E DIAGN OSTIC S_EUA 09/12 7:39 AM EDT [facility] Not Available Not Available 01/26/2025 10:39:24 09/12/19 25 09/11/2024 Basic metab olic 2008 [...] [facility] Not Available Not Available 01/26/2025 10:39:24 09/12/19 25 09/11/2024 Basic metab olic 2008 [...] [facility] Not Available Not Available 01/26/2025 10:39:24 09/12/19 25 09/11/2024 Basic metab olic 2008 panel with ioniz ed calci um - Serum or Plasm a interpretati on and review of laboratory results Abnorm al Not Available Not Available 10:39:24 10/12/19 25 10/12/2024 Immun ofixa tion for Serum or Plasm a interpretati on: IgG kappa monocl onal band abnormal prese nt. Test Perfo rmed by Jeremy Smith, [facility], [id number] [facility] , [place], [place] Sally Spears M.D., Ph.D. , [facility] , CLIA [id number] Not Available Not Available 02/04/2025 14:44:25 10/12/19 25 10/12/2024 Olya ine [Mass /volu me] in Blood vitamin B1 text: text: text: text: 8-30 Vitam in suppl ement ation withi n 24 hours prior to blood draw may affec t the accur acy of the resul ts. This test was devel oped and its julio tical perfo rmanc e dejon cteri stics have been deter mined by [employer] [facility] [place], [place]. It has not been clear ed or appro khurram by the U.S. Food and Drug Admin istra tion. This assay has been valid ated pursu ant to the CLIA regul ation s and is used for clini shelly purpo ses. Test Perfo rmed by Jeremy Smith, [employer] [facility], [address] , [place], [place] Sally Spears M.D., Ph.D. , [facility] atori es [phone], CLIA [id number] Not Available Not Available 02/04/2025 14:44:25 10/12/1910/12/2024 immun ofixa tion, serum interpretati on: IgG kappa monocl onal band abnormal prese nt. Test Perfo rmed by Jeremy Smith, [employer] [facility], [address] , [place], [place] Sally Spears M.D., Ph.D. , [facility] atori es , CLIA [id number] Not Available Not Available 02/22/2025 15:31:16 10/12/1910/12/2024 vitam in B1 (thia mine) , blood vitamin B1 text: text: text: text: text: text: 8-30 Vitam in suppl ement ation withi n 24 hours prior to blood draw may affec t the accur acy of the resul ts. This test was devel oped and its julio tical perfo rmanc e dejon cteri stics have been deter mined by [facility] [place], [place]. It has not been clear ed or appro khurram by the U.S. Food and Drug Admin istra tion. This assay has been valid ated pursu ant to the CLIA regul ation s and is used for clini shelly purpo ses. Test Perfo rmed by [employer] Jeremy, [employer] [facility], [address] [place], [place] Sally Spears M.D., Ph.D. , [facility] tor of Labor atori es , CLIA [id number] Not Available Not Available 02/22/2025 15:31:16 10/13/19 25 10/12/2024 TSH thyroid stimulating hormone 2.48 uIU/m L 0.55-4 .78 normal Not Available [facility] (Lab) [address] [place] [address], [address], 10/12/2024 16:02:28 10/13/19 25 10/12/2024 B12 vitamin B12 442 pg/mL 211-91 1 normal Not Available [facility] (Lab) [address] [place] [address], [address], 10/12/2024 16:24:28 10/13/19 25 10/12/2024 IMMUN OFIXA TION, SERUM interpretati on: IgG kappa monocl onal band abnormal prese nt. Test Perfo rmed by [employer] Jeremy, [employer], [address] [place], [place] Sally Spears M.D., Ph.D. , [facility] tor Labor atori es , CLIA [id number] Not Available [facility] (Lab) [address] [place] [address], [address], 10/14/2024 00:08:22 10/13/19 25 10/12/2024 METHY LMALO IRWIN ACID methylmaloni c acid 177 nmol/ L 69-390 normal Serum methy lmalo irwin acid (MMA) level s are used to diagn ose and monit or sever al rare inbor n error s of metab olism , inclu ding methy lmalo irwin acidu lex. The enzym atic conve rsion of MMA to succi irwin acid requi res vitam in B12 (albert osyl- cobal hendrickson) as a cofac tor. Serum MMA level s are also used for asses sing funct ional vitam in B12 defic iency . Vitam in B12 is essen tial for neuro devel opmen t, parti cular ly early in pregn jerzy. Undia gnose d mater nal vitam in B12 defic iency may be assoc iated with adver se /neon atal outco mes, such as neura l tube defec ts and intra uteri ne growt h restr ictio n. [facility] utili zed Multi -Moda l Decom posit ion (MMD) julio sis to estab charlie first and secon d trime ster- speci fic MMA refer ence inter vals in pregn jerzy, as given below : MMA, First trime ster (<13 wks gesta tion) : 58-16 7 nmol/ L MMA, Secon d trime ster (13-2 3 wks gesta tion) : 63-24 1 nmol/ L This test was devel oped and its julio tical perfo rmanc e dejon cteri stics have been deter mined by [facility]. It has not been clear ed or appro khurram by the FDA. This assay has been valid ated pursu ant to the CLIA regul ation s and is used for clini shelly purpo ses. Test Perfo rmed by Jeremy Smith, [facility], [address] [employer] , [facility] [place] Sally Spears M.D., Ph.D. , [facility] at[facility] , CLIA [id number] Not Available [facility] (Lab) [address] [place], [address], 10/14/2024 12:26:37 10/13/19 25 10/12/2024 VITAM IN B1 (THIA MINE) vitamin B1 15 nmol/ L 8-30 normal Vitam in suppl ement ation withi n 24 hours prior to blood draw may affec t the accur acy of the resul ts. This test was devel oped and its julio tical perfo rmanc e dejon cteri stics have been deter mined by [facility] [place] [place]. It has not been clear ed or appro khurram by the U.S. Food and Drug Admin istra tion. This assay has been valid ated pursu ant to the CLIA regul ation s and is used for clini shelly purpo ses. Test Perfo rmed by [employer] Jeremy, [facility] [address] [facility] , [place], [place] Sally Spears M.D., Ph.D. , [facility] atori es [phone], CLIA [id number] Not Available [facility] (Lab) [address] [place], [address], 10/15/2024 16:15:37 10/13/1910/12/2024 NMDA PLANT ENGINEER TOR ANTIB CHATO TEST interpretati on SEE NOTE NEGAT LULU This test did not detec t abnor mal level s of anti- NR1 antib odies . Not Available [facility] (Lab) [address] [place], [address], 10/21/2024 14:52:27 10/13/19 25 10/12/2024 NMDA PLANT ENGINEER TOR ANTIB CHATO TEST technical results SEE NOTE ----- ----- ----- ----- ----- ----- ----- ----- ----- ----- ----- ----- Inter preti ve Resul t Table ----- ----- ----- ----- ----- ----- ----- ----- ----- ----- ----- ----- INTER PRETI VE RESUL T: Negat lulu TEST: anti- NR1 TECHN ICAL RESUL T: Negat lulu REFER ENCE RANGE : Negat lulu ----- ----- ----- ----- ----- ----- ----- ----- ----- ----- ----- ----- ----- ----- ----- ----- ----- ----- ----- ----- ----- ----- ----- ----- Not Available [facility] (Lab) [address], [place], [address], 10/21/2024 14:52:27 10/13/19 25 10/12/2024 NMDA PLANT ENGINEER TOR ANTIB CHATO TEST comments SEE NOTE Comme nts: This resul t does not exclu de a diagn osis of an autoi mmune etiol ogy for the neuro logic al sympt oms assoc iated with paran eopla stic disor syd. Recom menda tions : Healt h care provi ders, pleas e conta ct the [facility] Clien t Servi ayla Depar tment at [phone] if you wish to speak with a clini shelly consu ltant regar ding this test resul t. Other testi ng avail able: [facility] recom mends addit ional testi ng, if not alrea dy perfo rmed. [facility] curre ntly offer s the follo wing antib chato tests : anti- Hu, anti- Yo, anti- Zic4, anti- CV2, anti- Ma1, anti- Ta, anti- Ri, anti- Recov micheline, anti- VGCC, anti- VGKC, anti- Amphi physi n, anti- G-ACh R, anti- GAD65 , anti- LGI1, and anti- CASPR 2. Pleas e conta ct the [facility] Clien t Servi ayla Depar tment or visit [facility] nosti cs.co m for infor matio n val holley addit ional testi ng that may be appro priat e based on this indiv idual 's clini shelly prese ntati on. Backg round infor matgabrielle n: Paran eopla stic neuro logic al syndr omes or disor ders (PNS or PND) are rare immun e-med iated disor ders resul ting from the damag e to the nervo us syste m due to remot e effec ts of a tumor (1, 2). PND of the centr al nervo us syste m may occur in assoc iatio n with eithe r oncon eural antib odies direc goldie again st intra cellu lar antig ens, or antib odies targe goldie again st neuro nal surfa ce antig ens (1, 3). Clini shelly featu res of PND may inclu de ataxi a, limbi c or brain stem encep halit is, senso ry neuro dorcas , subac osvaldo cereb ellar degen erati on, dizzi ness, nysta gmus, dysph agia, dysar thria , loss of muscl e tone, loss of memor y, visio n probl ems, sleep distu rbanc es, demen tia, seizu res, and/o r senso ry loss in the limbs (4). In appro ximat rin 60% of PND cases , neuro pathi c sympt oms prece de a tumor diagn osis (1). Some of the tumor s relat ed to PND inclu de small cell lung cance r, ovari an terat carlos and carci noma, thymo ma, lymph carlos, breas t cance r, and/o r testi cular cance r (2). PND may also inclu de Lambe rt-Ea ton myast henic syndr ome (LEMS ), stiff perso n syndr ome, encep halom yelit is, myast henia gravi s, neuro myoto pop, and opsoc lonus -myoc lonus (4). Howev er, these disor ders can also occur in indiv idual s witho ut under lying cance r. N-met hyl-D -aspa rtate molecular spectroscopist tors (NMDA Rs) are ionot ropic ligan d-gat ed catio n chann els, which are thoug ht to play a criti shelly role in centr al nervo us syste m (SALES DEMONSTRATOR) synap tic plast icity and signa l trans sandy on (5). NMDAR s (spec ifica lly NR1/N R2 heter odime rs) have recen tly been shown to be a targe t antig en for antib odies in patie nts with encep halit is (6, 7). The predo minan t featu res of this disor syd inclu de acute psych iatri c syndr omes, seizu res, memor y defic its, and hypov entil ation (8, 9). Major ity of patie nts havin g encep halit is assoc iated with anti- NMDAR antib odies are young women (6, 7, 10). A few men and child harika have also been repor goldie (8). Appro ximat rin 65% of femal e encep halit is patie nts with these antib odies have a detec table tumor , commo nly a cysti c ovari an terat carlos (6). Since neuro logic al sympt oms often prece de the detec tion of an occul t malig patricio , patie nt monit oring is recom gerhard d, and a searc h for occul t cance r shoul d be consi dered . Not Available [facility] (Lab) [address], [place], [address], 10/21/2024 14:52:27 10/13/19 25 10/12/2024 NMDA PLANT ENGINEER TOR ANTIB CHATO TEST methods SEE NOTE A cell- based assay (CBA) was used to detec t antib odies by indir ect immun ofluo resce nce test (IIFT ) on a recom binan t cell line expre ssing the antig en. Limit ation s of julio sis: Cross -inte rferi ng antib odies may be prese nt in sampl es and appea r as borde rline or low posit lulu resul ts. Speci men type may affec t sensi tivit y and speci ficit y of this assay . False posit lulu or false negat lulu resul ts may occur rarel y. All resul ts shoul d be inter prete d in the zackary xt of clini shelly findi ngs, relev ant medic al histo ry, and other ancil jose cruz labor atory data. Not Available [facility] (Lab) [address] [place], [address], 10/21/2024 14:52:27 10/13/19 25 10/12/2024 NMDA PLANT ENGINEER TOR ANTIB CHATO TEST references SEE NOTE 1. Tom pate, RB, et al. (2006 ) Semin Oncol 33: 270-9 8. (PMID : 03159 417) 2. JUANITA Abreu, et al. (2011 ) Eur J Neuro l 18: 19-e3 . (PMID : 35249 069) 3. Leida rodriguez L, et al. (2012 ) J Neuro l Neuro surg Psych iatry 83: 638-4 5. (PMID : 20589 032) 4. Hawk macias MR, et al. (2010 ) Oncol ogist 15: 603-1 7. (PMID : 58944 279) 5. PHANI Wolf, et al. (2007 ) Teodora Rev Neuro sci 8: 413-2 6. (PMID : 20189 195) 6. Toy Gonzalez, et al. (2008 ) Trey t Neuro l 7: 327-4 0. (PMID : 35717 348) 7. Iizuk a, T, et al. (2008 ) Neuro logy 70: 504-1 1. (PMID : 00978 324) 8. Kristen nceJAVIER, et al. (2009 ) Amie Neuro l 66: 11-8. (PMID : 15770 433) 9. Toy Gonzalez, et al. (2008 ) Trey t Neuro l 7: 1091- 8. (PMID : 91990 928) 10. Brian suarez P, et al. (2009 ) Arch Neuro l 66: 458-6 4. (PMID : 06142 930) Labor atory overs ight provi ded by Marcelo Cage M.D., Ph.D. , CLIA licen se holde r, [facility] (CLIA # [id number] ) [A porti on of testi ng was perfo rmed at [facility] 5] Testi ng perfo rmed at: [facility] [address] [facility] [place] [address] Test perfo rmed by [facility] [address] [facility] [place] [address] Phone : [phone] Medic al Direc tor: Marcelo Cage M.D., Ph.D. Test Repor goldie by Jeremy Smith [facility], [address] [place], [place] Patri florida Spears M.D., Ph.D. , [facility] atori es [phone], CLIA [id number] Not Available [facility] (Lab) [address], [place], [address], 10/21/2024 14:52:27 10/13/19 25 10/12/2024 Immun ofixa tion for Serum or Plasm a interpretati on: IgG kappa monocl onal band abnormal prese nt. Test Perfo rmed by Jeremy Smith [facility], [address] [facility], [place] Sally Spears M.D., Ph.D. , [facility] atori es [phone], CLIA [id number] Not Available Not Available 01/26/2025 10:39:24 10/13/19 25 10/12/2024 Olya ine [Mass /volu me] in Blood vitamin B1 text: text: 8-30 Vitam in suppl ement ation withi n 24 hours prior to blood draw may affec t the accur acy of the resul ts. This test was devel oped and its julio tical perfo rmanc e dejon cteri stics have been deter mined by [employer] [facility] [place] [place]. It has not been clear ed or appro khurram by the U.S. Food and Drug Admin istra tion. This assay has been valid ated pursu ant to the CLIA regul ation s and is used for clini shelly purpo ses. Test Perfo rmed by [employer] [facility], [employer] [facility], [address] [address] [employer] [place], [place] Sally Spears M.D., Ph.D. , [facility] atori es [phone], CLIA [id number] Not Available Not Available 01/26/2025 10:39:24 01/25/20 25 01/24/2025 CBC W Auto Diffe renti al panel - Blood leukocytes [#/volume] in blood by automated count 6.1 K/uL low: 4K/uLh igh: 11K/uL Not Available Not Available 01/26/2025 10:37:45 01/25/20 25 01/24/2025 CBC W Auto Diffe renti al panel - Blood erythrocytes [#/volume] in blood by automated count 4.69 text: 3.80 - 5.20 M/uL Not Available Not Available 01/26/2025 10:37:45 01/25/20 25 01/24/2025 CBC W Auto Diffe renti al panel - Blood hemoglobin [mass/volume ] in blood 13 g/dL low: 11.7g/ dLhigh : 16.1g/ dL Not Available Not Available 01/26/2025 10:37:45 01/25/20 25 01/24/2025 CBC W Auto Diffe renti al panel - Blood hematocrit [volume fraction] of blood by automated count 42.3 % low: 35.1%h igh: 48.3% Not Available Not Available 01/26/2025 10:37:45 01/25/20 25 01/24/2025 CBC W Auto Diffe renti al panel - Blood MCV [entitic mean volume] in red blood cells by automated count 90 fL low: 80fLhi gh: 99fL Not Available Not Available 01/26/2025 10:37:45 01/25/20 25 01/24/2025 CBC W Auto Diffe renti al panel - Blood MCH [entitic mass] by automated count 28 pg low: 26pghi gh: 34pg Not Available Not Available 01/26/2025 10:37:45 01/25/20 25 01/24/2025 CBC W Auto Diffe renti al panel - Blood MCHC [entitic mass/volume] in red blood cells by automated count 31 g/dL low: 31g/dL high: 36g/dL Not Available Not Available 01/26/2025 10:37:45 01/25/20 25 01/24/2025 CBC W Auto Diffe renti al panel - Blood erythrocyte [distwidth] in red blood cells by automated count 14 % low: 10%hig h: 15.5% Not Available Not Available 01/26/2025 10:37:45 01/25/20 25 01/24/2025 CBC W Auto Diffe renti al panel - Blood platelets [#/volume] in blood by automated count 214 K/uL low: 140K/u Lhigh: 440K/u L Not Available Not Available 01/26/2025 10:37:45 01/25/20 25 01/24/2025 CBC W Auto Diffe renti al panel - Blood platelet [entitic mean volume] in blood by automated count 9.9 fL low: 9fLhig h: 13fL Not Available Not Available 01/26/2025 10:37:45 01/25/20 25 01/24/2025 CBC W Auto Diffe renti al panel - Blood neutrophils/ leukocytes in blood by automated count 63 % low: 40%hig h: 75% Not Available Not Available 01/26/2025 10:37:45 01/25/20 25 01/24/2025 CBC W Auto Diffe renti al panel - Blood lymphocytes/ leukocytes in blood by automated count 26 % low: 20%hig h: 45% Not Available Not Available 01/26/2025 10:37:45 01/25/20 25 01/24/2025 CBC W Auto Diffe renti al panel - Blood monocytes/le ukocytes in blood by automated count 9 % low: 3%high : 12% Not Available Not Available 01/26/2025 10:37:45 01/25/20 25 01/24/2025 CBC W Auto Diffe renti al panel - Blood eosinophils/ leukocytes in blood by automated count 2 % low: 0%high : 6% Not Available Not Available 01/26/2025 10:37:45 01/25/20 25 01/24/2025 CBC W Auto Diffe renti al panel - Blood basophils/le ukocytes in blood by automated count 0 % low: 0%high : 2% Not Available Not Available 01/26/2025 10:37:45 01/25/20 25 01/24/2025 CBC W Auto Diffe renti al panel - Blood neutrophils [#/volume] in blood by automated count 3.9 K/uL low: 1.8K/u Lhigh: 7.7K/u L Not Available Not Available 01/26/2025 10:37:45 01/25/20 25 01/24/2025 CBC W Auto Diffe renti al panel - Blood lymphocytes [#/volume] in blood by automated count 1.6 K/uL low: 1K/uLh igh: 4.8K/u L Not Available Not Available 01/26/2025 10:37:45 01/25/20 25 01/24/2025 CBC W Auto Diffe renti al panel - Blood monocytes [#/volume] in blood by automated count 0.6 K/uL low: 0.1K/u Lhigh: 1K/uL Not Available Not Available 01/26/2025 10:37:45 01/25/20 25 01/24/2025 CBC W Auto Diffe renti al panel - Blood eosinophils [#/volume] in blood by automated count 0.1 K/uL low: 0K/uLh igh: 0.5K/u L Not Available Not Available 01/26/2025 10:37:45 01/25/2001/24/2025 CBC W Auto Diffe renti al panel - Blood basophils [#/volume] in blood by automated count 0 K/uL low: 0K/uLh igh: 0.2K/u L Not Available Not Available 01/26/2025 10:37:45 01/25/2001/24/2025 CBC W Auto Diffe renti al panel - Blood interpretati on and review of laboratory results Normal Not Available Not Available 01/08 10:37:45 01/25/2001/25/2025 Renal funct ion 1999 panel - Serum or Plasm a sodium [moles/volum e] in serum or plasma 143 mmol/ L low: 133mmo l/Lhig h: 145mmo l/L Not Available Not Available 01/26/2025 10:37:45 01/25/2001/25/2025 Renal funct ion 1999 panel - Serum or Plasm a potassium [moles/volum e] in serum or plasma 4.4 mmol/ L low: 3.5mmo l/Lhig h: 5.5mmo l/L Not Available Not Available 01/26/2025 10:37:45 01/25/2001/25/2025 Renal funct ion 2000 panel - Serum or Plasm a chloride [moles/volum e] in serum or plasma 106 mmol/ L low: 98mmol /Lhigh : 110mmo l/L Not Available Not Available 01/26/2025 10:37:45 01/25/2001/25/2025 Renal funct ion 1999 panel - Serum or Plasm a glucose [mass/volume ] in serum or plasma 93 mg/dL low: 70mg/d Lhigh: 99mg/d L Not Available Not Available 01/26/2025 10:37:45 01/25/20 25 01/25/2025 Renal funct ion 1999 panel - Serum or Plasm a urea nitrogen [mass/volume ] in serum or plasma 25 mg/dL low: 6mg/dL high: 22mg/d L high Not Available Not Available 01/26/2025 10:37:45 01/25/20 25 01/25/2025 Renal funct ion 1999 panel - Serum or Plasm a bicarbonate [moles/volum e] in serum or plasma 27 mmol/ L low: 20mmol /Lhigh : 32mmol /L Not Available Not Available 01/26/2025 10:37:45 01/25/20 25 01/25/2025 Renal funct ion 1999 panel - Serum or Plasm a creatinine [mass/volume ] in serum or plasma 0.9 mg/dL low: 0.8mg/ dLhigh : 1.4mg/ dL Not Available Not Available 01/26/2025 10:37:45 01/25/2001/25/2025 Renal funct ion 1999 panel - Serum or Plasm a calcium [mass/volume ] in serum or plasma 9.3 mg/dL low: 8.4mg/ dLhigh : 10.5mg /dL Not Available Not Available 01/26/2025 10:37:45 01/25/20 25 01/25/2025 Renal funct ion 1999 panel - Serum or Plasm a albumin [mass/volume ] in serum or plasma 3.7 g/dL low: 3.5g/d Lhigh: 5g/dL Not Available Not Available 01/26/2025 10:37:45 01/25/2001/25/2025 Renal funct ion 1999 panel - Serum or Plasm a phosphate [mass/volume ] in serum or plasma 3.6 mg/dL low: 2.5mg/ dLhigh : 4.5mg/ dL Not Available Not Available 01/26/2025 10:37:45 01/25/20 25 01/25/2025 Renal funct ion 1999 [...] funct ion. Not Available Not Available 01/26/2025 10:37:45 01/25/2001/25/2025 Renal funct ion 2000 panel - Serum or Plasm a anion gap in serum or plasma by calculated.4 ions 10 mmol/ L low: 3mmol/ Lhigh: 15mmol /L Anion Gap calcu latio n based on elect rolyt e refer ence range s. Not Available Not Available 01/26/2025 10:37:45 01/25/2001/25/2025 Renal funct ion 2000 panel - Serum or Plasm a interpretati on and review of laboratory results Abnorm al Not Available Not Available 10:37:45 01/25/2001/24/2025 renal funct ion panel , serum sodium, serum or plasma 143 mmol/ L text: low: 133mmo l/lhig h: 145mmo l/L Not Available Not Available 02/22/2025 15:31:16 01/25/2001/24/2025 renal funct ion panel , serum potassium, serum or plasma 4.4 mmol/ L text: low: 3.5mmo l/lhig h: 5.5mmo l/L Not Available Not Available 02/22/2025 15:31:16 01/25/2001/24/2025 renal funct ion panel , serum chloride, serum or plasma 106 mmol/ L text: low: 98mmol /lhigh : 110mmo l/L Not Available Not Available 02/22/2025 15:31:16 01/25/2001/24/2025 renal funct ion panel , serum glucose, qn [mass/volume ], serum or plasma 93 mg/dL text: low: 70mg/d lhigh: 99mg/d L Not Available Not Available 02/22/2025 15:31:16 01/25/20 25 01/24/2025 renal funct ion panel , serum BUN (blood urea nitrogen), serum or plasma 25 mg/dL text: low: 6mg/dl high: 22mg/d L high Not Available Not Available 02/22/2025 15:31:16 08/18/01/24/2025 renal funct ion panel , serum bicarbonate, quant, serum 27 mmol/ L text: low: 20mmol /lhigh : 32mmol /L Not Available Not Available 02/22/2025 15:31:16 01/25/2001/24/2025 renal funct ion panel , serum creatinine, serum or plasma 0.9 mg/dL text: low: 0.8mg/ dlhigh : 1.4mg/ dL Not Available Not Available 02/22/2025 15:31:16 01/25/2001/24/2025 renal funct ion panel , serum calcium, serum or plasma 9.3 mg/dL text: low: 8.4mg/ dlhigh : 10.5mg /dL Not Available Not Available 02/22/2025 15:31:16 01/25/2001/24/2025 renal funct ion panel , serum albumin, serum or plasma 3.7 g/dL text: low: 3.5g/d lhigh: 5g/dL Not Available Not Available 02/22/2025 15:31:16 01/25/2001/24/2025 renal funct ion panel , serum phosphorus, serum or plasma 3.6 mg/dL text: low: 2.5mg/ dlhigh : 4.5mg/ dL Not Available Not Available 02/22/2025 15:31:16 01/25/2001/24/2025 renal funct ion panel , serum [...] renal funct ion. Not Available Not Available 02/22/2025 15:31:16 01/25/2001/24/2025 renal funct ion panel , serum anion gap 4, serum or plasma (obs) 10 mmol/ L text: low: 3mmol/ lhigh: 15mmol /L Anion Gap calcu latio n based on elect rolyt e refer ence range s. Not Available Not Available 02/22/2025 15:31:16 01/25/2001/24/2025 renal funct ion panel , serum interpretati on and review of laboratory results Abnorm al Not Available Not Available 15:31:16 01/25/2001/24/2025 CBC w/ auto diff WBC, auto, blood 6.1 K/uL text: low: 4K/ulh igh: 11K/uL Not Available Not Available 02/22/2025 15:31:16 01/25/2001/24/2025 CBC w/ auto diff RBC count, blood 4.69 text: text: 3.80 - 5.20 M/uL Not Available Not Available 02/22/2025 15:31:16 01/25/2001/24/2025 CBC w/ auto diff hemoglobin (Hb), blood 13 g/dL text: low: 11.7g/ dlhigh : 16.1g/ dL Not Available Not Available 02/22/2025 15:31:16 01/25/2001/24/2025 CBC w/ auto diff hematocrit, automated count, blood 42.3 % text: low: 35.1%h igh: 48.3% Not Available Not Available 02/22/2025 15:31:16 01/25/2001/24/2025 CBC w/ auto diff MCV, blood 90 fL text: low: 80flhi gh: 99fL Not Available Not Available 02/22/2025 15:31:16 01/25/2001/24/2025 CBC w/ auto diff MCH, qn, automated (obs) 28 pg text: low: 26pghi gh: 34pg Not Available Not Available 02/22/2025 15:31:16 01/25/2001/24/2025 CBC w/ auto diff MCHC, qn, automated (obs) 31 g/dL text: low: 31g/dl high: 36g/dL Not Available Not Available 02/22/2025 15:31:16 01/25/2001/24/2025 CBC w/ auto diff erythrocyte distribution width, ratio, automated (obs) 14 % text: low: 10%hig h: 15.5% Not Available Not Available 02/22/2025 15:31:16 01/25/20 25 01/24/2025 CBC w/ auto diff platelets, auto, blood 214 K/uL text: low: 140K/u lhigh: 440K/u L Not Available Not Available 02/22/2025 15:31:16 01/25/20 25 01/24/2025 CBC w/ auto diff platelet mean volume, qn, automated, blood (obs) 9.9 fL text: low: 9flhig h: 13fL Not Available Not Available 02/22/2025 15:31:16 01/25/2001/24/2025 CBC w/ auto diff neutrophils/ 100 leukocytes, automated, blood (obs) 63 % text: low: 40%hig h: 75% Not Available Not Available 02/22/2025 15:31:16 01/25/20 25 01/24/2025 CBC w/ auto diff lymphocytes/ 100 leukocytes, automated, blood (obs) 26 % text: low: 20%hig h: 45% Not Available Not Available 02/22/2025 15:31:16 01/25/20 25 01/24/2025 CBC w/ auto diff monocytes/10 0 leukocytes, automated, blood (obs) 9 % text: low: 3%high : 12% Not Available Not Available 02/22/2025 15:31:16 01/25/20 25 01/24/2025 CBC w/ auto diff eosinophils/ 100 leukocytes, automated, blood (obs) 2 % text: low: 0%high : 6% Not Available Not Available 02/22/2025 15:31:16 01/25/20 25 01/24/2025 CBC w/ auto diff basophils/10 0 leukocytes, automated, blood (obs) 0 % text: low: 0%high : 2% Not Available Not Available 02/22/2025 15:31:16 01/25/20 25 01/24/2025 CBC w/ auto diff neutrophil count, absolute (anc), blood (obs) 3.9 K/uL text: low: 1.8K/u lhigh: 7.7K/u L Not Available Not Available 02/22/2025 15:31:16 01/25/20 25 01/24/2025 CBC w/ auto diff lymphocytes, quantitative , blood, automated count (obs) 1.6 K/uL text: low: 1K/ulh igh: 4.8K/u L Not Available Not Available 02/22/2025 15:31:16 01/25/20 25 01/24/2025 CBC w/ auto diff monocytes, count, automated, blood (obs) 0.6 K/uL text: low: 0.1K/u lhigh: 1K/uL Not Available Not Available 02/22/2025 15:31:16 01/25/20 25 01/24/2025 CBC w/ auto diff eosinophils, auto, blood, absolute 0.1 K/uL text: low: 0K/ulh igh: 0.5K/u L Not Available Not Available 02/22/2025 15:31:16 01/25/20 25 01/24/2025 CBC w/ auto diff basophils, quant, auto, blood (obs) 0 K/uL text: low: 0K/ulh igh: 0.2K/u L Not Available Not Available 02/22/2025 15:31:16 01/25/2001/24/2025 CBC w/ auto diff interpretati on and review of laboratory results Normal Not Available Not Available 02/07 15:31:16 11/03/19 neuro psych ologi shelly testi ng* No observ ation record ed. [email or web address] Not Available 11/04 09:13:06 11/03/1910/26/2024 neuro psych ologi shelly testi ng* No observ ation record ed. [email or web address] Not Available 2024 08:57:07 11/03/1910/28/2024 MRI, brain + brain stem, w/wo contr ast No observ ation record ed. [facility] [address] [place], [address], 11/16/2024 04:02:24 Result Notes None recorded. 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 Medical Equipment None Reported. Medications Name Sig Start Date Stop Date Status Note LastModified by Organization Details LastModified Time amoxicillin 500 mg capsule take 1 capsule by mouth three times a day 10/08 completed Not Available Not Available Not Available clopidogrel 75 mg tablet TAKE 1 tablet Orally Once a day 90 days 10/08 completed Not Available Not Available Not Available chlorthalid one 25 mg tablet take 1 tablet by mouth once daily 10/08 completed Not Available Not Available Not Available spironolact one 25 mg tablet TAKE 1 TABLET BY MOUTH ONE DAILY active Not Available Not Available No t Available magnesium oxide 400 mg (241.3 mg magnesium) tablet Take by oral route. active Not Available Not Available No t Available hyoscyamine 0.125 mg disintegrat ing tablet Place 1 tablet every 4 hours by sublingua l route as needed. active Not Available Not Available No t Available gabapentin 300 mg capsule take 1 capsule by mouth IN THE MORNING and 1 capsule IN THE AFTERNOON and 2 capsules at bedtime active Not Available Not Available No t Available gabapentin 100 mg capsule take 1 capsule by mouth at bedtime 10/08 completed Not Available Not Available Not Available ketoconazol e 2 % topical cream apply 1 APPLICATI ON to affected area twice a day for 2 to 4 WEEKS active Not Available Not Available No t Available losartan 100 mg tablet take 1 tablet by mouth once daily at bedtime active Not Available Not Available No t Available clotrimazol e 1 % topical cream apply to affected area topically twice a day IN THE MORNING AND EVENING active Not Available Not Available No t Available doxycycline hyclate 100 mg tablet take 1 tablet by mouth twice a day 10/08 completed Not Available Not Available Not Available Asprin Ec Low Dose 81 mg tablet,rajendra yed release Take 1 tablet every day by oral route. active Not Available Not Available No t Available ezetimibe 10 mg tablet take 1 tablet by mouth at bedtime active Not Available Not Available No t Available rosuvastati n 10 mg tablet take 1 tablet by mouth once daily ON FRIDAY, FRIDAY , AND FRIDAY active Not Available Not Available No t Available calcium 600 mg (as carbonate)- vitamin D3 10 mcg (400 unit) tablet take 1 tablet by mouth once daily with meals active Not Available Not Available No t Available febuxostat 40 mg tablet take 1 tablet by mouth 3 TIMES WEEKLY active Not Available Not Available No t Available Breo Ellipta 200 mcg-25 mcg/dose powder for inhalation inhale 1 puff by mouth and INTO THE LUNGS once daily AT THE SAME ... (REFER TO PRESCRIPT ION NOTES). active Not Available Not Available No t Available albuterol 90 mcg-budeson javier 80 mcg/actuati on HFA aerosol inhaler Inhale by inhalatio n route. active Not Available Not Available No t Available Vitals Date Recorded Body height Body mass index (BMI) Body weight Heart rate Oxygen saturation Systolic And Diastolic Provider Name and Address Organization Details Last Updated DateTime 157.48 cm 32.9 kg/m2 31391.6 3 g 87 /min 91 % 126/84 mm[Hg] [facility] 12:49:50 Date Recorded Body height Body mass index (BMI) Body weight Heart rate Oxygen saturation Systolic And Diastolic Provider Name and Address Organization Details Last Updated DateTime 157.48 cm 32.4 kg/m2 25942.8 5 g 71 /min 97 % 128/76 mm[Hg] Selma Shoemaker [facility] 10:45:31 Social History Question Answer Notes LastModified by Organizat ion Details LastModified Time Tobacco Smoking Status Never Smoker Selma Shoemaker [facility] 11/05/2024 10:45:58 What Is Your Level Of Caffeine Consumption? None Information not available 11/05/2024 What Was The Date Of Your Most Recent Tobacco Screening? 11/05/2024 Information not available 11/05/2024 Sex: Unknown Functional Status Question Answer Note LastModified by Organizat ion Details LastModified Time Do you use any illicit or recreational drugs? No [email or web address] [id number] Information not available 11/05/2024 Do you or have you ever used any other forms of tobacco or nicotine? No [email or web address] Information not available 11/05/2024 What is your level of alcohol consumption? None [place] [id number] Information not available 11/05/2024 Mental Status None recorded. Family History Nothing Reported. Medical History No medical history recorded. Gynecological HistoryNo gynecological history recorded. Obstetrics History GPAL:G 0 P 0 0 0 0 Past Encounters Encounter ID Performer Location Encounter Start Date Encounter Closed Date Diagnosis/Indication Diagnosis SNOMED-CT Code Diagnosis ICD10 Code Diagnosis IMO Codes Diagnosis Note [id number] Jenn Rankin NP MAIN OFFICE [address] [place] [phone] 10/07/2024 12:33:46 10/07/2024 13:23:19 Impaired cognition 106568869 G31.84 [id number] Discussed mild cognitive impairment and its possible contributi ng factors.Wi ll order MRI brain.Will order labs to rule out other etiologies .Will order neuropsych testing.Wi ll consider treatment pending results of initial workup. [id number] Deshawn Lomax MD MAIN OFFICE [address] [place] [phone] 10/26/2024 07:55:41 10/26/2024 08:13:48 Impaired cognition 626013029 G31.84 [id number] CLYDE VICENTE [facility] [address] [address] 11/02/2024 09:38:15 11/02/2024 09:49:05 Impaired cognition 900904134 G31.84 [id number] Discussed in detail result of neurotrax testing with the patient.Meg snow recommenda tion to continue brain exercises, healthy diet, and aerobic exercises. Consider follow-up testing in 1-2 years.Will provide copy of report to patient at next follow-up. MRI brain is pending. 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 , the patient has been referred back to her hematologi st for monitoring Health Concerns Section Related Observation LastModified by Organization Detai ls LastModified Time None Recorded Concern Status LastModified by Organization Details LastModified Time None Recorded Advance Directives Directive None Recorded Payers Insurance Date Sequence Insurance Name Policy Number Policy Vu Covered Member ID Vu Member ID Guarantor Name 11/28/2024 2 [employer] (MEDICARE SUPPLEMENT) Susie Francis [id number] Susie Francis 01/01/2025 1 [place] Susie Francis [id number] Susie Francis Notes Date Note Type Note Provider Name and Address Organization Details Recorded Time 5 text/html ROS as noted in the HPI I had the pleasure of seeing Ms. Francis in office today for consultation. This is a 79 year old woman presenting with speech difficulties.According to the patient, she has cardiovascular history, including hypertension and coronary artery disease. She had an abnormal EKG and had cardiac catheterization about a month ago. She has had new onset speech difficulties, finding words and speaking, which has become more frequent. Symptoms have been noted by family. It was recommended by her sports team manager to have neurological workup. She denies symptoms prior to a month ago.She may be forgetful. She has difficulty remembering words and how to pronounce them. She does have hearing loss and wears bilateral hearing aids. She can still do her daily activities. She denies leaving appliances on or getting lost. She denies mood or personality changes. She may have occasional difficulties going to sleep if she has things in her mind, but she overall sleeps well and feels rested.She has lower back pain that can radiate to the legs. She has tried physical therapy and steroid injections with her paint grinder, Dr. Pollard. She is also on gabapentin. She has history of TIA in the past and is on low dose aspirin. She denies syncope but had an episode of syncope of lightheadedness and weakness earlier this week. She denies seizure or head trauma. Jenn Rankin NP [address], [place], [address], [facility] 10/07/2024 21:47:13 5 text/html ROS as noted in the HPI I had the pleasure of seeing Ms. Francis in office today for telehealth follow-up. This is a 79 year old woman presenting with speech difficulties.According to the patient, she has cardiovascular history, including hypertension and coronary artery disease. She had an abnormal EKG and had cardiac catheterization about a month ago. She has had new onset speech difficulties, finding words and speaking, which has become more frequent. Symptoms have been noted by family. It was recommended by her sports team manager to have neurological workup. She denies symptoms prior to a month ago.She may be forgetful. She has difficulty remembering words and how to pronounce them. She does have hearing loss and wears bilateral hearing aids. She can still do her daily activities. She denies leaving appliances on or getting lost. She denies mood or personality changes. She may have occasional difficulties going to sleep if she has things in her mind, but she overall sleeps well and feels rested.She has lower back pain that can radiate to the legs. She has tried physical therapy and steroid injections with her paint grinder, Dr. Pollard. She is also on gabapentin. She has history of TIA in the past and is on low dose aspirin. She denies syncope but had an episode of syncope of lightheadedness and weakness earlier this week. She denies seizure or head trauma. The patient was seen today via telehealth for Neurotrax result follow-up. Her test did not show any significant deficits in any domain, with normal performance as compared to age controls. She continues to have some word-finding difficulties and speech difficulties. She does have hearing loss which could be contributing. MRI of the brain is still pending. CLYDE VICENTE, ALEJANDRINA-BC [address], [place], [address], [facility] 11/05/2024 00:30:34 5 text/html ROS as noted in the HPI I had the pleasure of seeing Ms. Francis in office today for follow-up. This is a 79 year old woman presenting with speech difficulties.According to the patient, she has cardiovascular history, including hypertension and coronary artery disease. She had an abnormal EKG and had cardiac catheterization about a month ago. She has had new onset speech difficulties, finding words and speaking, which has become more frequent. Symptoms have been noted by family. It was recommended by her sports team manager to have neurological workup. She denies symptoms prior to a month ago.She may be forgetful. She has difficulty remembering words and how to pronounce them. She does have hearing loss and wears bilateral hearing aids. She can still do her daily activities. She denies leaving appliances on or getting lost. She denies mood or personality changes. She may have occasional difficulties going to sleep if she has things in her mind, but she overall sleeps well and feels rested.She has lower back pain that can radiate to the legs. She has tried physical therapy and steroid injections with her paint grinder, Dr. Pollard. She is also on gabapentin. She has history of TIA in the past and is on low dose aspirin. She denies syncope but had an episode of syncope of lightheadedness and weakness earlier this week. She denies seizure or head trauma.The patient returns back to the office. The patient did did have a neuropsychological testing done which seems to be normal for age. 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 Deshawn Lomax MD [address] [place] [address] [address], [place], [address], [facility] 11/05/2024 11:31:32 OBGyn Episode No OBEpisode recorded.
--- OUTSIDE RECORDS SUMMARY | 2025-06-02 12:45 | XMS_ITS | Patient Health Record ---
Author Organization [facility] Address [address] [place] [address] Care Team Providers Care Letter Of Credit Clerk Name Role Phone Mahin Malloy Primary Care Provider UnavailClive Covarrubias Unavailable [phone] Vijay Rabago Unavailable [phone] Allergies Allergen (clinical drug ingredient) Drug/Non Drug Allergy documented on EMR Reaction Allergy Type Onset Date Status penicillin (uncoded) Unknown Allergy Active predniSONE Unknown Drug Allergy Active Sterapred Unknown Drug Allergy Active doxycycline Doxycycline Unknown Drug Allergy Act mishel Reason For Referral No Information Medications Medication SIG (Take, Route, Frequency, Duration) Notes Start Date End Date Status Propranolol HCl ER 60 MG Oral; Duration: 30 Active Breo Ellipta 200-25 MCG/INH 1 puff Inhalation Once a day Active HYDROcodone-Acetaminop hen 5-325 MG 1 tablet as needed Orally every 6 hrs 11/07/2020 Active Febuxostat 40 MG Oral; Duration: 28 Active Vitamin D3 11/07/2020 Active Spironolactone 25 MG Oral; Duration: 90 Active Azithromycin 250 MG Oral; Duration: 5 Not-Taking Simvastatin 10 MG Oral; Duration: 90 Active Doxycycline Hyclate 100 MG Oral; Duration: 10 Not-Takin g Chlorthalidone 25 MG Oral; Duration: 90 Active Ondansetron 4 MG Oral; Duration: 4 Active Clopidogrel Bisulfate 75 MG Oral; Duration: 90 Active Gabapentin 300 MG 1 capsule Orally in the morning, 1 capsule in the afternoon, 2 capsules nightly; Duration: 30 days Updated prescription. 06/10/2024 Active Rosuvastatin Calcium Active Benzonatate 11/07/2020 Active Ezetimibe Active Hyoscyamine 11/07/2020 Active Albuterol Sulfate HFA 11/07/2020 Active Aspirin 81 11/07/2020 Active Losartan Potassium 100 MG Oral; Duration: 90 Active Immunizations Vaccine Route Administration Date Status Comme nts Influenza, high dose seasonal Unknown 02/08/2021 Admini stered Influenza, high dose seasonal Unknown 05/20/2022 Refuse d Pneumococcal conjugate PCV 13 Unknown 06/22/2014 Admini stered Social History Tobacco Use: Social History Observation Description Date Details (start date - stop date) Never Smoker NA - NA Sex Assigned At : Social History Observation Description Sex Assigned At Female Tobacco Use/Smoking Question Answer Notes Status: nonsmoker Additional Findings: Tobacco Non-User Current no n-smoker Alcohol Screen (Audit-C) Question Answer Notes How often did you have 6 or more drinks on one occasion in the past year? Never (0 point) How many drinks did you have on a typical day when you were drinking in the past year? 1 or 2 drinks (0 point) How often did you have a dri nk containing alcohol in the past year? Never (0 point) Did you have a drink contain ing alcohol in the past year? Yes Points 0 Interpretation Negative Problems Problem Type SNOMED Code ICD Code Onset Dates Problem Status W/U Status Risk Notes Problem Chronic pain (86956914) Other chronic pain (G89.29) Active confirmed Problem Essential hypertension (73374449) Essential (primary) hypertension (I10) Active confirmed 5 Problem Lumbosacral spondylosis without myelopathy (disorder) (73502218) Spondylosis without myelopathy or radiculopathy, lumbosacral region (M47.817) Active confirmed Problem Degeneration of lumbar intervertebral disc (29728273) Lumbar degenerative disc disease (M51.36) Active confirmed Problem Lumbar radiculopathy (017347282) Radiculopathy of lumbar region (M54.16) Active confirmed Problem Lumbar radicular pain (0012946309) Lumbar radicular pain (M54.16) Active confirmed Problem Prolapsed lumbar intervertebral disc (218212006) Lumbar disc herniation (M51.26) Active confirmed Problem Arthropathy of lumbar facet joint (511791439) Lumbar facet arthropathy (M12.88) Active confirmed Problem Displacement of lumbar intervertebral disc without myelopathy (37077363) Bulging of lumbar intervertebral disc (M51.26) Active confirmed Problem Lumbar spondylosis (285729162) Lumbar spondylosis (M47.816) Active confirmed Problem Acquired spondylolisthesis (743449795) Lumbar spondylolysis (M43.06) Active confirmed Problem Lumbar spinal stenosis (85126188) Lumbar spinal stenosis (M48.061) Active confirmed Problem Arthropathy of lumbar facet joint (970502242) Lumbar facet arthropathy (M47.816) Active confirmed Vital Signs Heart Rate 63 /min 08/17/2024 Blood pressure diastolic 65 mm Hg 08/17/2024 Height 63 in 08/17/2024 Blood pressure systolic 115 mm Hg 08/17/2024 Weight 180.8 lbs 08/17/2024 BMI 32.02 kg/m2 08/17/2024 Encounters Encounter Location Date Provider Diagnosis [facility] [address] [address] 10/19/2024 Clive Pollard [facility] [address], [address] [address] 08/17/2024 Clive Pollard Essential hypertensi on I10 ; Lumbar spondylosis M47.816 ; Lumbar facet arthropathy M12.88 ; Spondylosis without myelopathy or radiculopathy, lumbosacral region M47.817 ; Other chronic pain G89.29 ; Myofascial muscle pain M79.18 ; Bulge of lumbar disc without myelopathy M51.369 and Degeneration of intervertebral disc at L5-S1 level M51.379 [facility] [address], [address] [address] 06/17/2024 Clive Pollard Essential (primary) hypertension I10 ; Radiculopathy of lumbar region M54.16 ; Lumbar radicular pain M54.16 ; Other [...] pain M54.5 and Lumbar spinal stenosis M48.061 [facility] [address] [address] 06/10/2024 Clive Pollard [facility] [address] [address] 06/08/2024 Vijay Rabago Assessments Encounter Date Diagnosis (ICD Code) Assessment Notes Treatment Notes Treatment Clinical Notes Section Notes 06/17/2024 Essential (primary) hypertension (ICD-10 - I10) 06/17/24 06/17/2024 Radiculopathy of lumbar region (ICD-10 - M54.16) 08/17/2024 Essential hypertension (ICD-10 - I10) 06/0908/17/2024 Lumbar spondylosis (ICD-10 - M47.816) 06/17/2024 Lumbar radicular pain (ICD-10 - M54.16) 06/17/2024 Other chronic pain (ICD-10 - G89.29) 08/17/2024 Lumbar facet arthropathy (ICD-10 - M12.88) 08/17/2024 Spondylosis without myelopathy or radiculopathy, lumbosacral region (ICD-10 - M47.817) 06/17/2024 Myofascial muscle pain (ICD-10 - M79.18) 06/17/2024 Bulge of lumbar disc without myelopathy (ICD-10 - M51.369) 08/17/2024 Other chronic pain (ICD-10 - G89.29) 06/17/2024 Degeneration of intervertebral disc of lumbosacral region, unspecified whether pain present (ICD-10 - M51.379) 08/17/2024 Myofascial muscle pain (ICD-10 - M79.18) 08/17/2024 Bulge of lumbar disc without myelopathy (ICD-10 - M51.369) 06/17/2024 Lumbar spondylosis (ICD-10 - M47.816) 06/17/2024 Lumbar facet arthropathy (ICD-10 - M12.88) 08/17/2024 Degeneration of intervertebral disc at L5-S1 level (ICD-10 - M51.379) 06/17/2024 Spondylosis without myelopathy or radiculopathy, lumbosacral [...] with over half of this in direct [id number]-lz-[id number] counseling regarding thier multiple different pain generators. [...] with over half of this in direct alic-[id number]-iokq counseling regarding multiple different pain generators. This [...] try to help with this as well. Plan Of Treatment Pending Test Test Name [...] Facet Injection 11/24/2023 Lumbar Facet Injection 03/29/2024 Insurance Providers Payer Name Payer Address Payer Phone Subscriber Number Group Number Insured Name Patient Relationship to Insured Coverage Start Date Coverage End Date [employer] [place] - J11 [address] [place] [address] [id number] TA MCPHERSON Self - patient is the insured 0 AAR Supplemental Plan [address] [place] [address] [id number] TA MCPHERSON Self - patient is the [...]
[2025-06-02] MEDS: oxyCODONE HCL (*CRX) 5 MG TAB IR PO (13:29)
[2025-06-02] MEDS: MUPIROCIN 2% OINT 22 GM TUBE 1 APPLIC (14:26)
== END 2025-06-02 14:31 | disposition home or self-care (01) ==
PROVIDERS: Emergency Provider Student in an Organized Health Care Education/Training Program
DX: S80.11XA Contusion of right lower leg, initial encounter (principal); W17.89XA Other fall from one level to another, initial encounter; Z23 Encounter for immunization
CPT/HCPCS: 73502; 73590; 73630; 90471; 90715; 99284; A9270